=== PATIENT | male | born 1965 | race Caucasian/White ===

== ENCOUNTER 2017-05-07 18:53 | Emergency (ER) | payer MEDICARE, OTHER ==
[2017-05-07] MEDS ORDERED: KETOROLAC 30 MG/ML 1 ML VIAL IVP STA ×2 (19:01→20:22)
--- NOTE | 2017-05-07 19:05 | ED ---
Chest Pain HPI - General Chief Complaint: Chest Pain Stated Complaint: Chest pain Time Seen by Provider: 05/07/17 18:53 Source: patient, EMS, RN notes reviewed Mode of arrival: EMS Limitations: no limitations - History of Present Illness Initial Comments: This is a 51-year-old male who was currently in rehab for alcoholism who is been there 6 days ago one half hours ago started developing left lower anterior chest pain with some numbness to his left arm he also states later developing leg numbness he states the pain was sharp and pressure-like 4/10 severity he currently is 3/10 he was given 3 nitroglycerin and 324 mg of aspirin by paramedics. He has a cough fevers chills sweats he has some nausea and a headache now. He has no known heart disease. He denies any abdominal pain. Patient does say he has felt fatigued all day he did just finish Ativan yesterday for his withdrawals. MD Complaint: chest pain - Related Data Home Medications Medication Instructions Recorded Confirmed Lisinopril [Prinivil] 10 mg PO DAILY 04/16/14 05/07/17 Multivitamins, Thera [Multivitamin 1 tab PO DAILY 04/16/14 05/07/17 (formulary)] Ondansetron HCl [Zofran] 8 mg PO Q6H PRN 04/16/14 05/07/17 Thiamine [Vitamin B-1] 100 mg PO DAILY 04/16/14 05/07/17 Acetaminophen [Tylenol 8 Hour] 650 mg PO Q4H PRN MDD 6 TABLETS 05/07/17 05/07/17 Calcium Carb/Magnesium Hydrox 2 tab PO TID PRN 05/07/17 05/07/17 [Rolaids Chewable Tablet] Ibuprofen [Motrin] 600 mg PO Q6HR PRN 05/07/17 05/07/17 LORazepam [Ativan] 1 - 2 mg PO Q4H PRN 05/07/17 05/07/17 Sertraline [Zoloft] 100 mg PO DAILY@0600 05/07/17 05/07/17 Trimethobenzamide [Tigan] 300 mg PO Q6H PRN 05/07/17 05/07/17 busPIRone HCl [Buspar] 10 mg PO TID PRN 05/07/17 05/07/17 lamoTRIgine [LaMICtal] 25 mg PO BID@0600,1730 05/07/17 05/07/17 traZODone HCL 50 - 150 mg PO HS 05/07/17 05/07/17 Previous Rx's Medication Instructions Recorded Ibuprofen 800 mg PO Q6HR PRN #20 tablet 05/07/17 Allergies Allergy/AdvReac Type Severity Reaction Status Date / Time clonidine [From Catapres] AdvReac Vomiting Verified 05/07/17 19:04 Review of Systems ROS Statement: Those systems with pertinent positive or pertinent negative responses have been documented in the HPI. ROS Other: All systems not noted in ROS Statement are negative. EKG Findings - EKG Results: EKG: interpreted by ERMD, sinus rhythm (Normal sinus rhythm rate of 66 ID interval 134 QRS duration 84 QT since QTC 376/394 this is a normal-appearing EKG no changes seen from that submitted by EMS.) Past Medical History Past Medical History: Hypertension Additional Past Medical History / Comment(s): degenerative disc in back, diverticulosis History of Any Multi-Drug Resistant Organisms: C-DIFF Date of last positivie culture/infection: 2008 MDRO Source:: stool Additional Past Surgical History / Comment(s): 10 inches of colon removed from diverticulosis. Past Anesthesia/Blood Transfusion Reactions: No Reported Reaction Past Psychological History: Anxiety, Bipolar, Depression Smoking Status: Current every day smoker Past Alcohol Use History: Abuse Past Drug Use History: None Reported - Past Family History Mother Family Medical History: Congestive Heart Failure (CHF) General Exam - General Exam Comments Initial Comments: This is a well-developed well-nourished awake alert oriented times 3 male Limitations: no limitations General appearance: alert, in no apparent distress Head exam: Present: atraumatic, normocephalic, normal inspection Eye exam: Present: normal appearance, PERRL, EOMI. Absent: scleral icterus, conjunctival injection, periorbital swelling ENT exam: Present: normal exam, mucous membranes moist Neck exam: Present: normal inspection. Absent: tenderness, meningismus, lymphadenopathy Respiratory exam: Present: normal lung sounds bilaterally, chest wall tenderness (Reproducible tenderness palpation along the left costochondral margin step-off or crepitation). Absent: respiratory distress, wheezes, rales, rhonchi, stridor Cardiovascular Exam: Present: regular rate, normal rhythm, normal heart sounds. Absent: systolic murmur, diastolic murmur, rubs, gallop, clicks GI/Abdominal exam: Present: soft, normal bowel sounds. Absent: distended, tenderness, guarding, rebound, rigid Extremities exam: Present: normal inspection, full ROM, normal capillary refill. Absent: tenderness, pedal edema, joint swelling, calf tenderness Back exam: Present: normal inspection Neurological exam: Present: alert, oriented X3, CN II-XII intact Psychiatric exam: Present: normal affect, normal mood Skin exam: Present: warm, dry, intact, normal color. 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 He will be discharged with instructions for nonsteroidal anti-inflammatories Disposition Clinical Impression: Costalchondritis, Chest wall syndrome Disposition: HOME SELF-CARE Condition: Good Instructions: Costochondritis (ED) Prescriptions: Ibuprofen 800 mg PO Q6HR PRN #20 tablet PRN Reason: Pain Referrals: Nando Minor MD [Primary Care Provider] - 1-2 days
--- NOTE | 2017-05-07 19:21 | XR ---
EXAMINATION TYPE: XR chest 2V DATE OF EXAM: 05/07/2017 COMPARISON: NONE HISTORY: Chest pain TECHNIQUE: Frontal and lateral views of the chest are obtained. FINDINGS: There is no focal air space opacity, pleural effusion, or pneumothorax seen. The cardiac silhouette size is within normal limits. The osseous structures are intact. IMPRESSION: No acute cardiopulmonary process.
[2017-05-07 19:25] LABS: Basophils % (A) 1 %; Eosinophils # (A) 0.2 k/uL (0-0.7); Eosinophils % (A) 3 %; HCT 41.1 % (39.0-53.0); HGB 13.5 gm/dL (13.0-17.5); Lymphocytes # (A) 2.5 k/uL (1.0-4.8); Lymphocytes % (A) 33 %; MCH 30.2 pg (25.0-35.0); MCHC 32.8 g/dL (31.0-37.0); MCV 92.1 fL (80.0-100.0); Mean Platelet Volume 7.2; Monocytes # (A) 0.7 k/uL (0-1.0); Monocytes % (A) 9 %; Neutrophils % (A) 53 %; Platelet Count 307 k/uL (150-450); RBC 4.46 m/uL (4.30-5.90); RDW 13.3 % (11.5-15.5); WBC 7.7 k/uL (3.8-10.6)
[2017-05-07 19:34] LABS: ALT 24 U/L (21-72); AST 27 U/L (17-59); Albumin 3.9 g/dL (3.5-5.0); Alkaline Phosphatase 43 U/L (38-126); Amylase 57 U/L (30-110); Anion Gap 7 mmol/L; Blood Urea Nitrogen 17 mg/dL (9-20); Calcium 9.7 mg/dL (8.4-10.2); Carbon Dioxide 27 mmol/L (22-30); Chloride 106 mmol/L (98-107); Glucose 93 mg/dL (74-99); Lipase 143 U/L (23-300); Potassium 5.2 mmol/L (3.5-5.1); Sodium 140 mmol/L (137-145); Total Bilirubin 0.5 mg/dL (0.2-1.3); Total Protein 6.7 g/dL (6.3-8.2)
[2017-05-07 19:36] LABS: D-Dimer 0.2 mg/L FEU (<0.60)
[2017-05-07 19:40] LABS: Partial Thromboplastin Time 22.7 sec (22.0-30.0); Prothrombin Time 10.1 sec (9.0-12.0)
[2017-05-07 20:00] LABS: Creatine Kinase 82 U/L (55-170)
[2017-05-07 20:13] LABS: Creatine Kinase MB 0.2 ng/mL (0.0-2.4); Troponin I <0.012 ng/mL (0.000-0.034)
[2017-05-07] MEDS ORDERED: LORazepam 2 MG/ML INJ IV STA (20:22)
[2017-05-07 21:42] VITALS: BP 150/82; PULSE 60; RESP 18; TEMP 98
== END 2017-05-07 22:00 | disposition home or self-care (01) ==
LOC: EC 18:53
DX: M94.0 Chondrocostal junction syndrome [Tietze] (principal); R07.1 Chest pain on breathing; I10 Essential (primary) hypertension; F31.9 Bipolar disorder, unspecified; F41.9 Anxiety disorder, unspecified; F17.200 Nicotine dependence, unspecified, uncomplicated; Z79.899 Other long term (current) drug therapy; Z88.8 Allergy status to other drugs, medicaments and biological substances
CPT/HCPCS: 36415; 93005; 85379; 83880; 80053; 82150; 82550; 82553; 83690; 83735; 84484; 85025; 85610; 85730; 71046; 99285; 96374; 96375; 96376; J2060; J1885

== ENCOUNTER 2017-07-27 01:58 | Emergency (ER) | payer MEDICARE, OTHER ==
[2017-07-27] MEDS ORDERED: PENICILLIN G BENZATHINE 1,200,000 UNIT/2 ML SYRINGE IM ONE (03:27)
[2017-07-27] MEDS ORDERED: HYDROcodone/APAP 5-325MG 1 EACH TAB PO STA (03:28)
[2017-07-27] MEDS ORDERED: KETOROLAC 30 MG/ML 1 ML VIAL IM STA (03:28)
--- NOTE | 2017-07-27 03:30 | ED ---
ENT HPI - General Chief complaint: Dental/Oral Stated complaint: Dental pain Time Seen by Provider: 07/27/17 02:37 Source: patient Mode of arrival: ambulatory Limitations: no limitations - History of Present Illness Initial comments: 51-year-old male patient presented to the emergency department today for evaluation of dental abscess. Patient states he is having frontal dental pain and right frontal facial swelling. Patient states that he has been having pain for the last 4 days. States that he has very poor dentition and multiple broken teeth with dental caries. Patient states he does have a dentist appointment next week but he can't take the pain any longer. Patient states the pain is severe he is rating it a 10 out of 10 on a pain scale. He denies any fevers or chills. States that he has had some nausea. States he's been taking Tylenol Motrin for pain control but denies any relief. Denies any trismus or difficulty swallowing. Denies any rash. Patient denies any recent shortness breath, chest pain, abdominal pain, vomiting, diarrhea, constipation, back pain, numbness, tingling, dizziness, weakness, hematuria, dysuria, urinary urgency, urinary frequency, headache, visual changes, or any other complaints. - Related Data Home Medications Medication Instructions Recorded Confirmed Lisinopril [Prinivil] 10 mg PO DAILY 04/16/14 05/07/17 Multivitamins, Thera [Multivitamin 1 tab PO DAILY 04/16/14 05/07/17 (formulary)] Ondansetron HCl [Zofran] 8 mg PO Q6H PRN 04/16/14 05/07/17 Thiamine [Vitamin B-1] 100 mg PO DAILY 04/16/14 05/07/17 Acetaminophen [Tylenol 8 Hour] 650 mg PO Q4H PRN MDD 6 TABLETS 05/07/17 05/07/17 Calcium Carb/Magnesium Hydrox 2 tab PO TID PRN 05/07/17 05/07/17 [Rolaids Chewable Tablet] Ibuprofen [Motrin] 600 mg PO Q6HR PRN 05/07/17 05/07/17 LORazepam [Ativan] 1 - 2 mg PO Q4H PRN 05/07/17 05/07/17 Sertraline [Zoloft] 100 mg PO DAILY@0600 05/07/17 05/07/17 Trimethobenzamide [Tigan] 300 mg PO Q6H PRN 05/07/17 05/07/17 busPIRone HCl [Buspar] 10 mg PO TID PRN 05/07/17 05/07/17 lamoTRIgine [LaMICtal] 25 mg PO BID@0600,1730 05/07/17 05/07/17 traZODone HCL 50 - 150 mg PO HS 05/07/17 05/07/17 Previous Rx's Medication Instructions Recorded Ibuprofen 800 mg PO Q6HR PRN #20 tablet 05/07/17 Hydrocodone/Acetaminophen [[place] 1 tab PO Q6HR PRN #12 tab 07/27/17 5-325] Ibuprofen [Motrin] 600 mg PO Q8HR PRN #30 tab 07/27/17 Penicillin V Potassium [Pen Vee K] 500 mg PO Q6H #40 tablet 07/27/17 Allergies Allergy/AdvReac Type Severity Reaction Status Date / Time clonidine [From Catapres] AdvReac Vomiting Verified 07/27/17 02:06 Review of Systems ROS Statement: Those systems with pertinent positive or pertinent negative responses have been documented in the HPI. ROS Other: All systems not noted in ROS Statement are negative. Past Medical History Past Medical History: Hypertension Additional Past Medical History / Comment(s): degenerative disc in back, diverticulosis History of Any Multi-Drug Resistant Organisms: C-DIFF Date of last positivie culture/infection: 2008 MDRO Source:: stool Additional Past Surgical History / Comment(s): 10 inches of colon removed from diverticulosis. Past Anesthesia/Blood Transfusion Reactions: No Reported Reaction Past Psychological History: Anxiety, Bipolar, Depression Smoking Status: Current every day smoker Past Alcohol Use History: Abuse Past Drug Use History: None Reported - Past Family History Mother Family Medical History: Congestive Heart Failure (CHF) General Exam Limitations: no limitations General appearance: alert, in no apparent distress, other (This is a well- developed, well-nourished adult male patient in no acute distress. Vital signs upon presentation are temperature 98.1F, pulse 73, respirations 20, blood pressure 173/115, pulse ox 99% on room air.) Eye exam: Present: normal appearance, PERRL, EOMI. Absent: scleral icterus, conjunctival injection, periorbital swelling ENT exam: Present: normal oropharynx, mucous membranes moist, other (Patient has very poor dentition, upper teeth are all broken down to the gumline, there is gingival erythema and hyperplasia. Patient has no evidence of drainable abscess. He does have facial swelling over the right maxillary region. This does not extend to the eye. There is no erythema.). Absent: normal exam Neck exam: Present: normal inspection. Absent: tenderness, meningismus, lymphadenopathy Respiratory exam: Present: normal lung sounds bilaterally. Absent: respiratory distress, wheezes, rales, rhonchi, stridor Cardiovascular Exam: Present: regular rate, normal rhythm, normal heart sounds. Absent: systolic murmur, diastolic murmur, rubs, gallop, clicks Neurological exam: Present: alert, oriented X3, CN II-XII intact Psychiatric exam: Present: normal affect, normal mood Skin exam: Present: warm, dry, intact, normal color. 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 Physical examination did reveal right facial swelling and very poor dentition. No evidence of drainable abscess. We will give patient an injection of penicillin. He'll be discharged home with a prescription for Pen-Vee K. He does have an appointment with his dentist next week he is urged to keep this. Return parameters discussed in detail. He verbalizes understanding and agrees with this plan. Disposition Clinical Impression: Dental abscess Disposition: HOME SELF-CARE Condition: Good Instructions: Dental Abscess (ED) Additional Instructions: Apply cool compresses to the outside of the face. Take medications as directed. Complete antibiotic prescription in full. Follow-up with dentistry as soon as possible. Return here immediately if you develop any fevers, increased swelling, or any other concerning symptoms. Prescriptions: Hydrocodone/Acetaminophen [[place] 5-325] 1 tab PO Q6HR PRN #12 tab PRN Reason: Pain Ibuprofen [Motrin] 600 mg PO Q8HR PRN #30 tab PRN Reason: Pain Penicillin V Potassium [Pen Vee K] 500 mg PO Q6H #40 tablet Is patient prescribed a controlled substance at d/c from ED?: Yes When asked, does pt state using other controlled substances?: No If prescribed controlled substance>3 days was MAPS reviewed?: Prescribed <3 Days If opioid is for acute pain is fill amount 7 days or less?: No If Rx opioid, was Start Talking consent form obtained?: Yes Referrals: Sheridan Virgen MD [Primary Care Provider] - 1-2 days Time of Disposition: 03:30
[2017-07-27 03:50] VITALS: BP 159/69; PULSE 78; RESP 18; TEMP 97
== END 2017-07-27 03:49 | disposition home or self-care (01) ==
LOC: EC 01:58
DX: K04.7 Periapical abscess without sinus (principal); K06.1 Gingival enlargement; S02.5XXA Fracture of tooth (traumatic), initial encounter for closed fracture; K02.9 Dental caries, unspecified; I10 Essential (primary) hypertension; F31.9 Bipolar disorder, unspecified; F41.9 Anxiety disorder, unspecified; F17.200 Nicotine dependence, unspecified, uncomplicated; Z88.8 Allergy status to other drugs, medicaments and biological substances; Z79.899 Other long term (current) drug therapy; X58.XXXA Exposure to other specified factors, initial encounter
CPT/HCPCS: 99282 ×3; 96372 ×3; 64450; J0561; J2001; J1885; J2270

== ENCOUNTER 2017-07-27 08:58 | Emergency (ER) | payer MEDICARE, OTHER ==
[2017-07-27 09:03] VITALS: BP 154/109; PULSE 99; RESP 20; TEMP 98.1
[2017-07-27] MEDS ORDERED: BUPIVACAINE (PF) 0.5% 30 ML VIAL SQ STA (09:09)
[2017-07-27] MEDS ORDERED: LIDOCAINE 1% INJ 10MG/ML (20 ML MDV) SQ STA (09:09)
--- NOTE | 2017-07-27 09:27 | ED ---
General Adult HPI - General Chief complaint: Dental/Oral Stated complaint: Dental Pain Time Seen by Provider: 07/27/17 09:04 Source: patient, RN notes reviewed Mode of arrival: ambulatory Limitations: no limitations - History of Present Illness Initial comments: 51-year-old male presenting to the emergency room today with chief complaint of increased dental pain. Patient does admit that he started having pain a few days ago. He does admit to poor dental hygiene. Does admit to seeing a dentist has an appointment on Saturday. Patient states he was here early this morning at 2 AM. He states he was given a shot of Toradol, a [place], and shot of penicillin and discharged home. He states he would home was able to fall asleep woke up with the same pain. Patient denies any drainage discharge. Patient denies any other complaints or symptoms at this time. Patient denies any recent fever, chills, shortness of breath, chest pain, back pain, abdominal pain, nausea or vomiting, headaches or visual changes, or any other complaints. - Related Data Home Medications Medication Instructions Recorded Confirmed Lisinopril [Prinivil] 10 mg PO DAILY 04/16/14 05/07/17 Multivitamins, Thera [Multivitamin 1 tab PO DAILY 04/16/14 05/07/17 (formulary)] Ondansetron HCl [Zofran] 8 mg PO Q6H PRN 04/16/14 05/07/17 Thiamine [Vitamin B-1] 100 mg PO DAILY 04/16/14 05/07/17 Acetaminophen [Tylenol 8 Hour] 650 mg PO Q4H PRN MDD 6 TABLETS 05/07/17 05/07/17 Calcium Carb/Magnesium Hydrox 2 tab PO TID PRN 05/07/17 05/07/17 [Rolaids Chewable Tablet] Ibuprofen [Motrin] 600 mg PO Q6HR PRN 05/07/17 05/07/17 LORazepam [Ativan] 1 - 2 mg PO Q4H PRN 05/07/17 05/07/17 Sertraline [Zoloft] 100 mg PO DAILY@0600 05/07/17 05/07/17 Trimethobenzamide [Tigan] 300 mg PO Q6H PRN 05/07/17 05/07/17 busPIRone HCl [Buspar] 10 mg PO TID PRN 05/07/17 05/07/17 lamoTRIgine [LaMICtal] 25 mg PO BID@0600,1730 05/07/17 05/07/17 traZODone HCL 50 - 150 mg PO HS 05/07/17 05/07/17 Previous Rx's Medication Instructions Recorded Ibuprofen 800 mg PO Q6HR PRN #20 tablet 05/07/17 Hydrocodone/Acetaminophen [[place] 1 tab PO Q6HR PRN #12 tab 07/27/17 5-325] Ibuprofen [Motrin] 600 mg PO Q8HR PRN #30 tab 07/27/17 Penicillin V Potassium [Pen Vee K] 500 mg PO Q6H #40 tablet 07/27/17 Allergies Allergy/AdvReac Type Severity Reaction Status Date / Time clonidine [From Catapres] AdvReac Vomiting Verified 07/27/17 09:03 Review of Systems ROS Statement: Those systems with pertinent positive or pertinent negative responses have been documented in the HPI. ROS Other: All systems not noted in ROS Statement are negative. Past Medical History Past Medical History: Hypertension Additional Past Medical History / Comment(s): degenerative disc in back, diverticulosis History of Any Multi-Drug Resistant Organisms: C-DIFF Date of last positivie culture/infection: 2008 MDRO Source:: stool Additional Past Surgical History / Comment(s): 10 inches of colon removed from diverticulosis. Past Anesthesia/Blood Transfusion Reactions: No Reported Reaction Past Psychological History: Anxiety, Bipolar, Depression Smoking Status: Current every day smoker Past Alcohol Use History: Abuse Past Drug Use History: None Reported - Past Family History Mother Family Medical History: Congestive Heart Failure (CHF) General Exam - General Exam Comments Initial Comments: General: The patient is awake and alert, in no distress, and does not appear acutely ill. Eye: Pupils are equal, round and reactive to light, extra-ocular movements are intact. No nystagmus. There is normal conjunctiva bilaterally. No signs of icterus. Ears, nose, mouth and throat: There are moist mucous membranes and no oral lesions. Patient does have poor dental hygiene with multiple fractured teeth down to the gumline. There is some redness swelling of the gumline of 8 and 9. Locally tender on palpation in this area. Neck: The neck is supple Musculoskeletal: Normal ROM, no tenderness. Strength 5/5. Sensation intact. Pulses equal bilaterally 2+. Neurological: A&O x 3. CN II-XII intact, There are no obvious motor or sensory deficits. Coordination appears grossly intact. Speech is normal. Skin: Skin is warm and dry and no rashes or lesions are noted. Psychiatric: Cooperative, appropriate mood & affect, normal judgment. Limitations: no limitations Course Vital Signs 07/27/17 09:01 Temperature 98.1 F Pulse Rate 99 Respiratory 20 Rate Blood Pressure 154/109 O2 Sat by Pulse 97 Oximetry Medical Decision Making - Medical Decision Making Options were discussed with patient about a dental block. Was also discussed about giving him a [place] for the pain. Patient was provided a prescription last night and also antibiotics. He was given a shot of antibiotics last night. Advised patient that it may take 2448 hrs. for antibiotics to begin to work. He states he needs something for the pain and would like to try dental block. A dental block was performed with mixture 50-50 of lidocaine and bupivacaine. 30-gauge needle was used to anesthetize the area. Immediately afterwards patient states he did not want to try this again and he had no relief. Immediately he stated he wanted to talk to who was in charge. Patient will be discharged from the and advised continue taking antibiotic and pain medication as previously prescribed. Disposition Clinical Impression: Dental abscess Disposition: HOME SELF-CARE Instructions: Dental Abscess (ED) Additional Instructions: Please continue to take previously prescribed antibiotics and pain medication. Please follow-up dentist as discussed. Please return to emergency room for any other concerns Is patient prescribed a controlled substance at d/c from ED?: No Referrals: Sheridan Virgen MD [Primary Care Provider] - 1-2 days Time of Disposition: 09:26
[2017-07-27] MEDS ORDERED: MORPHINE SULFATE 2 MG/ML SYRINGE IM STA (09:30)
== END 2017-07-27 09:43 | disposition home or self-care (01) ==
LOC: EC 08:58
DX: K04.7 Periapical abscess without sinus (principal); I10 Essential (primary) hypertension; F41.9 Anxiety disorder, unspecified; F31.9 Bipolar disorder, unspecified; F17.200 Nicotine dependence, unspecified, uncomplicated; Z79.899 Other long term (current) drug therapy; Z88.8 Allergy status to other drugs, medicaments and biological substances
CPT/HCPCS: 99282; 64400; J2001; J2270; 64450

== ENCOUNTER 2017-09-16 09:45 | Day surgery (SDC) | payer MEDICARE, OTHER ==
[2017-09-11 15:44] VITALS: BMI 30.7
[~2017-09-16 09:45] MED LIST: LACTATED RINGERS 1,000 ML IV SCH; LIDOCAINE 1% 20 ML VIAL (10MG/ML) FOR IV START INTRADERMA PRN
[2017-09-16 10:11] VITALS: RESP 18; TEMP 98.8
[2017-09-16] MEDS ORDERED: LACTATED RINGERS 1,000 ML IV ONE (10:14)
[2017-09-16] MEDS ORDERED: PROPOFOL 10 MG/ML 20 ML VIAL IV ONE (10:55)
--- NOTE | 2017-09-16 11:17 | P.GSHP ---
History of Present Illness H&P Date: 09/16/17 Chief Complaint: Screening colonoscopy, history of diverticulosis Is a 51-year-old male been sick for screening colonoscopy. He's had issues with diverticulitis the past. He has complaints of a small perirectal abscess. Past Medical History Past Medical History: Hypertension Additional Past Medical History / Comment(s): degenerative disc in back, diverticulosis. POS BLOOD IN STOOL. History of Any Multi-Drug Resistant Organisms: C-DIFF Date of last positivie culture/infection: 2008 MDRO Source:: stool Past Surgical History: Bowel Resection Additional Past Surgical History / Comment(s): COLONOSCOPY; 10 inches of colon removed from diverticulosis. Past Anesthesia/Blood Transfusion Reactions: No Reported Reaction Smoking Status: Current every day smoker - Past Family History Mother Family Medical History: Congestive Heart Failure (CHF) Medications and Allergies Home Medications Medication Instructions Recorded Confirmed Type Multivitamins, Thera [Multivitamin 1 tab PO DAILY 04/16/14 09/11/17 History (formulary)] Sertraline [Zoloft] 100 mg PO DAILY 05/07/17 09/11/17 History busPIRone HCl [Buspar] 10 mg PO TID 05/07/17 09/11/17 History lamoTRIgine [LaMICtal] 25 mg PO BID 05/07/17 09/11/17 History Cholecalciferol (Vitamin D3) 1,000 unit PO DAILY 07/30/17 09/11/17 History [Vitamin D3] L.acidoph,Paracasei, B.lactis 1 cap PO DAILY 07/30/17 09/11/17 History [Probiotic] hydrOXYzine PAMOATE [Vistaril] 50 mg PO HS 09/11/17 09/11/17 History Allergies Allergy/AdvReac Type Severity Reaction Status Date / Time clonidine [From Catapres] AdvReac Vomiting Verified 09/11/17 15:22 Surgical - Exam Vital Signs Temp Pulse Resp BP Pulse Ox 98.8 F 77 18 138/92 94 L 09/16/17 10:10 09/16/17 10:10 09/16/17 10:10 09/16/17 10:10 09/16/17 10:10 - General well developed, no distress - Eyes PERRL - ENT normal pinna - Neck no masses - Respiratory normal expansion - Cardiovascular Rhythm: regular - Abdomen Abdomen: soft, non tender Assessment and Plan Assessment: We'll perform screening colonoscopy.
--- NOTE | 2017-09-16 11:31 | P.OP ---
Date of Procedure: 09/16/17 Preoperative Diagnosis: Screening colonoscopy Postoperative Diagnosis: Diverticulosis Procedure(s) Performed: Colonoscopy Anesthesia: MAC Surgeon: Maximus Amezcua Pathology: none sent Condition: stable Disposition: PACU Description of Procedure: The patient's placed on the endoscopy table in the lateral position. He received IV sedation. The digital rectal exam is performed which revealed no abnormalities. The prostate was symmetric without nodules. The flexible colonoscope was then placed the patient's anus and passed throughout the entire colon. The ileocecal valve sutures. The cecum, ascending and transverse colon appeared normal. The descending; there is moderate diverticular changes. Scope was then brought back the rectum and this appeared normal. There isany abscess or fissures. Scope was withdrawn for patient.
[2017-09-16 11:50] VITALS: BP 132/88; PULSE 67
== END 2017-09-16 12:07 | disposition home or self-care (01) ==
LOC: ORWHC2ENDO 09:45
PROVIDERS: ATTEND Surgery
DX: K57.30 Diverticulosis of large intestine without perforation or abscess without bleeding (principal); I10 Essential (primary) hypertension; F17.200 Nicotine dependence, unspecified, uncomplicated; F39 Unspecified mood [affective] disorder; Z79.899 Other long term (current) drug therapy; Z88.8 Allergy status to other drugs, medicaments and biological substances
CPT/HCPCS: 45378; J2704

== ENCOUNTER 2017-09-27 13:52 | Emergency (ER) | payer MEDICARE, OTHER ==
[2017-09-27] MEDS ORDERED: KETOROLAC 30 MG/ML 1 ML VIAL IVP STA (14:40)
[2017-09-27] MEDS ORDERED: SODIUM CHLORIDE 0.9% 1,000 ML IV ONE (14:40)
[2017-09-27] MEDS ORDERED: ONDANSETRON 4 MG/2 ML VIAL IVP STA (14:40)
[2017-09-27 15:02] LABS: Appearance,Urine Clear (Clear); Bilirubin,Urine Negative (Negative); Blood,Urine Negative (Negative); Color,Urine Light Yellow; Glucose,Urine (UA) Negative (Negative); Ketones,Urine Negative (Negative); Leukocyte Esterase,Urine Negative (Negative); Nitrite,Urine Negative (Negative); Protein,Urine Negative (Negative); Urobilinogen,Urine <2.0 mg/dL (<2.0)
--- NOTE | 2017-09-27 15:23 | ED ---
Abdominal Pain HPI - General Chief Complaint: Abdominal Pain Stated Complaint: abd pain Time Seen by Provider: 09/27/17 14:16 Source: patient Mode of arrival: ambulatory Limitations: no limitations - History of Present Illness Initial Comments: Patient is a 51-year-old male with a history of diverticulosis who presents with a chief complaint of left lower quadrant pain and diarrhea. This has been going on for about a day. Patient cannot identify inciting incident, he denies any sick contacts. Patient states this pain feels crampy in nature. There are no aggravating or alleviating factors. Timing is been constant. He denies fever, chills, nausea or vomiting. - Related Data Home Medications Medication Instructions Recorded Confirmed Multivitamins, Thera [Multivitamin 1 tab PO DAILY 04/16/14 09/27/17 (formulary)] Sertraline [Zoloft] 100 mg PO DAILY 05/07/17 09/27/17 busPIRone HCl [Buspar] 10 mg PO TID 05/07/17 09/27/17 lamoTRIgine [LaMICtal] 25 mg PO BID 05/07/17 09/27/17 Cholecalciferol (Vitamin D3) 1,000 unit PO DAILY 07/30/17 09/27/17 [Vitamin D3] L.acidoph,Paracasei, B.lactis 1 cap PO DAILY 07/30/17 09/27/17 [Probiotic] hydrOXYzine PAMOATE [Vistaril] 50 mg PO HS 09/11/17 09/27/17 Previous Rx's Medication Instructions Recorded Dicyclomine [Bentyl] 20 mg PO QID #20 tablet 09/27/17 Allergies Allergy/AdvReac Type Severity Reaction Status Date / Time clonidine [From Catapres] AdvReac Vomiting Verified 09/27/17 14:07 Review of Systems ROS Statement: Those systems with pertinent positive or pertinent negative responses have been documented in the HPI. ROS Other: All systems not noted in ROS Statement are negative. Gastrointestinal: Reports: abdominal pain Past Medical History Past Medical History: Hypertension Additional Past Medical History / Comment(s): degenerative disc in back, diverticulosis. POS BLOOD IN STOOL. History of Any Multi-Drug Resistant Organisms: C-DIFF Date of last positivie culture/infection: 2008 MDRO Source:: stool Past Surgical History: Bowel Resection Additional Past Surgical History / Comment(s): COLONOSCOPY; 10 inches of colon removed from diverticulosis. Past Anesthesia/Blood Transfusion Reactions: No Reported Reaction Past Psychological History: Anxiety, Bipolar, Depression Smoking Status: Current every day smoker Past Alcohol Use History: None Reported Past Drug Use History: None Reported - Past Family History Mother Family Medical History: Congestive Heart Failure (CHF) General Exam Limitations: no limitations General appearance: alert, in no apparent distress Head exam: Present: atraumatic, normocephalic Eye exam: Present: normal appearance ENT exam: Present: normal exam Neck exam: Present: normal inspection Respiratory exam: Present: normal lung sounds bilaterally, respiratory distress Cardiovascular Exam: Present: regular rate, normal rhythm GI/Abdominal exam: Present: soft, tenderness (Patient has tenderness to palpation in the left lower quadrant.). Absent: distended Rectal exam: Present: deferred Extremities exam: Present: normal inspection Back exam: Present: normal inspection, full ROM Neurological exam: Present: alert, oriented X3 Psychiatric exam: Present: normal affect, normal mood Skin exam: Present: warm, dry, intact Course Vital Signs 09/27/17 14:06 Temperature 98.8 F Pulse Rate 81 Respiratory 18 Rate Blood Pressure 145/95 O2 Sat by Pulse 97 Oximetry Medical Decision Making - Medical Decision Making Patient presents with a chief complaint of left lower quadrant pain and diarrhea. On initial evaluation, vitals are stable, patient is in no acute distress. Exam concerning for possible diverticulitis. Patient had a colonoscopy recently. He states that they saw that he had diverticulosis without active infectious process. Patient was evaluated with basic labs and a computed tomography scan of the abdomen and pelvis. Labs are unremarkable. White blood cells of 10,000. Computed tomography scan of the abdomen and pelvis shows diverticulosis without evidence of diverticulitis. Computed tomography scan is otherwise unremarkable. Patient given Toradol and fluids for pain. Reevaluation, patient still having abdominal pain. He states he took the bus here today. Patient will be given a Harvey in the emergency department and discharged with a prescription for Bentyl. Patient was instructed to stay hydrated, and follow up with primary care and GI in 1-2 days. Patient was instructed to return to the emergency department if his symptoms worsen or change. - Lab Data Result diagrams: 09/27/17 15:00 09/27/17 15:00 Lab Results 09/27/17 09/27/17 09/27/17 Range/Units 14:45 15:00 15:00 WBC 10.0 (3.8-10.6) k/uL RBC 5.28 (4.30-5.90) m/uL Hgb 14.8 (13.0-17.5) gm/dL Hct 45.4 (39.0-53.0) % MCV 86.0 (80.0-100.0) fL MCH 28.1 (25.0-35.0) pg MCHC 32.7 (31.0-37.0) g/dL RDW 13.3 (11.5-15.5) % Plt Count 315 (150-450) k/uL Neutrophils % 64 % Lymphocytes % 27 % Monocytes % 5 % Eosinophils % 3 % Basophils % 1 % Neutrophils # 6.4 (1.3-7.7) k/uL Lymphocytes # 2.7 (1.0-4.8) k/uL Monocytes # 0.5 (0-1.0) k/uL Eosinophils # 0.3 (0-0.7) k/uL Basophils # 0.1 (0-0.2) k/uL Sodium 140 (137-145) mmol/L Potassium 4.1 (3.5-5.1) mmol/L Chloride 109 H (98-107) mmol/L Carbon Dioxide 23 (22-30) mmol/L Anion Gap 8 mmol/L BUN 14 (9-20) mg/dL Creatinine 0.90 (0.66-1.25) mg/dL Est GFR (CKD-EPI)AfAm >90 (>60 ml/min/1.73 sqM) Est GFR (CKD-EPI)NonAf >90 (>60 ml/min/1.73 sqM) Glucose 90 (74-99) mg/dL Calcium 9.6 (8.4-10.2) mg/dL Total Bilirubin 0.4 (0.2-1.3) mg/dL AST 18 (17-59) U/L ALT 22 (21-72) U/L Alkaline Phosphatase 55 (38-126) U/L Total Protein 6.6 (6.3-8.2) g/dL Albumin 4.1 (3.5-5.0) g/dL Lipase 73 (23-300) U/L Urine Color Light Yellow Urine Appearance Clear (Clear) Urine pH 6.0 (5.0-8.0) Ur Specific [place] 1.010 (1.001-1.035) Urine Protein Negative (Negative) Urine Glucose (UA) Negative (Negative) Urine Ketones Negative (Negative) Urine Blood Negative (Negative) Urine Nitrite Negative (Negative) Urine Bilirubin Negative (Negative) Urine Urobilinogen <2.0 (<2.0) mg/dL Ur Leukocyte Esterase Negative (Negative) Disposition Clinical Impression: Abdominal pain, Diarrhea Disposition: HOME SELF-CARE Condition: Good Instructions: Abdominal Pain (ED) Is patient prescribed a controlled substance at d/c from ED?: No Referrals: Sheridan Virgen MD [Primary Care Provider] - 1-2 days
[2017-09-27 15:27] LABS: Basophils # (A) 0.1 k/uL (0-0.2); Basophils % (A) 1 %; Eosinophils # (A) 0.3 k/uL (0-0.7); Eosinophils % (A) 3 %; HCT 45.4 % (39.0-53.0); HGB 14.8 gm/dL (13.0-17.5); Lymphocytes # (A) 2.7 k/uL (1.0-4.8); Lymphocytes % (A) 27 %; MCH 28.1 pg (25.0-35.0); MCHC 32.7 g/dL (31.0-37.0); Mean Platelet Volume 6.1; Monocytes # (A) 0.5 k/uL (0-1.0); Monocytes % (A) 5 %; Neutrophils # (A) 6.4 k/uL (1.3-7.7); Neutrophils % (A) 64 %; Platelet Count 315 k/uL (150-450); RBC 5.28 m/uL (4.30-5.90); RDW 13.3 % (11.5-15.5)
[2017-09-27 15:35] LABS: ALT 22 U/L (21-72); AST 18 U/L (17-59); Albumin 4.1 g/dL (3.5-5.0); Alkaline Phosphatase 55 U/L (38-126); Anion Gap 8 mmol/L; Blood Urea Nitrogen 14 mg/dL (9-20); Calcium 9.6 mg/dL (8.4-10.2); Carbon Dioxide 23 mmol/L (22-30); Chloride 109 mmol/L (98-107); Glucose 90 mg/dL (74-99); Lipase 73 U/L (23-300); Potassium 4.1 mmol/L (3.5-5.1); Sodium 140 mmol/L (137-145); Total Bilirubin 0.4 mg/dL (0.2-1.3); Total Protein 6.6 g/dL (6.3-8.2)
--- NOTE | 2017-09-27 16:09 | CT ---
EXAMINATION TYPE: CT abdomen pelvis w con DATE OF EXAM: 09/27/2017 COMPARISON: NONE HISTORY: 51-year-old male complains of LLQ pain. TECHNIQUE: Contiguous axial scanning of the abdomen and pelvis following administration of 100 ml Iso brianne 300 IV contrast. Delayed images through the kidneys and coronal/sagittal reconstructions perform ed. CT DLP: 1294 mGycm Automated exposure control for dose reduction was used. FINDINGS: Heart normal size without pericardial effusion. Mild dependent atelectasis posterior lung bases. No p leural effusion. Liver borderline enlarged measuring 17.6 cm. Subcentimeter hypodensity centrally in the liver too sma ll for accurate CT characterization, likely tiny cyst. No biliary ductal dilatation. Portal venous sy stem is patent. Gallbladder, adrenal glands, kidneys, spleen, and pancreas appear within normal limits. Small diverti culum of the second portion of the duodenum projecting to the pancreatic head region. No dilated small bowel, free fluid, or free air. Normal appendix. Mild overall stool burden. There is lower descending colonic diverticulosis as well as scattered sigmoid diverticulosis. No pericolonic inflammatory change seen. Small fatty umbilical hernia. Stable line along the mid sigmoid compatible with prior resection and re-anastomosis. No mesenteric or retroperitoneal lymphadenopathy. Circumaortic left renal vein incidentally noted. Mi ld atherosclerotic calcifications infrarenal abdominal aorta and iliac arteries. Mild circumferential bladder wall thickening. Central prostatic calcifications. Prostate gland measur es 3.4 cm wide. No abnormal fluid collection in the pelvis or pelvic lymphadenopathy. Bones: Degenerative disc disease L5-S1. L4-L5 laminectomy change. IMPRESSION: 1. LEFT-SIDED COLONIC DIVERTICULOSIS WITH PRIOR RESECTION AND RE-ANASTOMOSIS ALONG THE MID SIGMOID. N O EVIDENCE FOR ACUTE DIVERTICULITIS. 2. MILD CIRCUMFERENTIAL BLADDER WALL THICKENING . CORRELATE TO EXCLUDE CYSTITIS. 3. OTHERWISE, NO ACUTE INFLAMMATORY PROCESS IDENTIFIED IN THE ABDOMEN OR PELVIS TO EXPLAIN THE PATIEN T'S SYMPTOMS.
[2017-09-27] MEDS ORDERED: HYDROcodone/APAP 5-325MG 1 EACH TAB PO STA (16:12)
[2017-09-27 16:53] VITALS: BP 151/81; PULSE 57; RESP 20; TEMP 98.2
== END 2017-09-27 16:52 | disposition home or self-care (01) ==
LOC: EC 13:52
DX: K57.90 Diverticulosis of intestine, part unspecified, without perforation or abscess without bleeding (principal); F31.9 Bipolar disorder, unspecified; F41.9 Anxiety disorder, unspecified; F17.200 Nicotine dependence, unspecified, uncomplicated; Z79.899 Other long term (current) drug therapy; Z88.8 Allergy status to other drugs, medicaments and biological substances
CPT/HCPCS: 36415; 80053; 83690; 85025; 81003; 74177; 99284; 96374; 96375; 96361; J2405; J1885; Q9967

== ENCOUNTER 2017-10-01 17:29 | Emergency (ER) | payer MEDICARE, OTHER ==
[2017-10-01 17:54] VITALS: TEMP 97.9
[2017-10-01] MEDS ORDERED: IBUPROFEN 800 MG TAB PO STA (18:49)
[2017-10-01] MEDS ORDERED: CYCLOBENZAPRINE 5 MG TAB PO STA (18:53)
--- NOTE | 2017-10-01 19:26 | XR ---
EXAMINATION TYPE: XR lumbar spine 2 or 3V DATE OF EXAM: 10/01/2017 COMPARISON: NONE HISTORY: Low back pain TECHNIQUE: 3 views FINDINGS: Lumbar vertebra have normal alignment. There is narrowing of L5-S1 disc space. There is spu rring of the endplates. Abdominal aorta is atheromatous. Sacroiliac joints appear intact. IMPRESSION: Negative lumbar spine exam.
[2017-10-01] MEDS ORDERED: KETOROLAC 60 MG/2 ML VIAL IM STA (19:34)
--- NOTE | 2017-10-01 19:49 | ED ---
Back Pain HPI - General Chief Complaint: Back Pain/Injury Stated Complaint: Lower back pain Time Seen by Provider: 10/01/17 18:28 Source: patient Limitations: no limitations - History of Present Illness Initial Comments: 51-year-old male with chronic low back pain with reveals lumbar laminectomy who presents today for chief complaint of low back pain. Patient states that he was getting out of bed yesterday when he twisted and felt a pop returned. He noticed some radiation of the pain from his lumbar spine down to his legs bilaterally. Patient denies any recent trauma, or injury to the back, numbness , tingling, paresthesias or loss sensation of the lower extremities. Patient denies any loss of bowel bladder control or urinary retention. Patient states has not taken any medication for the low back pain. Patient presents emergency department today to find out what's going on. Patient denies any IV drug use, recent weight loss, urgency, previously, dysuria, hematuria, fever, chills, chest pain, shortness breath or any other symptoms. - Related Data Home Medications Medication Instructions Recorded Confirmed Sertraline [Zoloft] 100 mg PO DAILY 05/07/17 10/01/17 lamoTRIgine [LaMICtal] 25 mg PO BID 05/07/17 10/01/17 hydrOXYzine PAMOATE [Vistaril] 50 mg PO HS 09/11/17 10/01/17 Azithromycin [Zithromax Z-pack] See Taper PO DIRECTED 10/01/17 10/01/17 Previous Rx's Medication Instructions Recorded Cyclobenzaprine [Flexeril] 5 mg PO HS 4 Days #4 tab 10/01/17 Ibuprofen [Motrin] 800 mg PO Q6H PRN 5 Days #20 tab 10/01/17 Allergies Allergy/AdvReac Type Severity Reaction Status Date / Time clonidine [From Catapres] AdvReac Vomiting Verified 10/01/17 18:12 Review of Systems ROS Statement: Those systems with pertinent positive or pertinent negative responses have been documented in the HPI. ROS Other: All systems not noted in ROS Statement are negative. Constitutional: Denies: fever, chills, weight change, night sweats Respiratory: Denies: cough, dyspnea, wheezes, hemoptysis, stridor Cardiovascular: Denies: chest pain, palpitations Gastrointestinal: Denies: abdominal pain, nausea, vomiting Genitourinary: Denies: urgency, dysuria Musculoskeletal: Reports: back pain. Denies: joint swelling, arthralgia Skin: Denies: rash, lesions Neurological: Denies: headache, weakness, numbness, paresthesias, confusion, abnormal gait Past Medical History Past Medical History: Hypertension Additional Past Medical History / Comment(s): degenerative disc in back, diverticulosis. POS BLOOD IN STOOL. History of Any Multi-Drug Resistant Organisms: C-DIFF Date of last positivie culture/infection: 2008 MDRO Source:: stool Past Surgical History: Bowel Resection Additional Past Surgical History / Comment(s): COLONOSCOPY; 10 inches of colon removed from diverticulosis. Past Anesthesia/Blood Transfusion Reactions: No Reported Reaction Past Psychological History: Anxiety, Bipolar, Depression Smoking Status: Current every day smoker Past Alcohol Use History: None Reported Past Drug Use History: None Reported - Past Family History Mother Family Medical History: Congestive Heart Failure (CHF) General Exam - General Exam Comments Initial Comments: General: The patient is awake and alert, in no distress, and does not appear acutely ill. Eye: Pupils are equal, round and reactive to light, extra-ocular movements are intact. No nystagmus. There is normal conjunctiva bilaterally. No signs of icterus. Ears, nose, mouth and throat: There are moist mucous membranes and no oral lesions. Neck: The neck is supple, there is no tenderness or JVD. Cardiovascular: There is a regular rate and rhythm. No murmur, rub or gallop is appreciated. Respiratory: Lungs are clear to auscultation, respirations are non-labored, breath sounds are equal. No wheezes, stridor, rales, or rhonchi. Gastrointestinal: No CVA tenderness. Musculoskeletal: Full range of motion for flexion, hypertension, lateral flexion and rotation of the lumbar spine, patient does admit to increased pain lumbar spine with flexion and hypertension. Patient admits to midline tenderness to patient over the lumbar spine,as well as right-sided paravertebral tenderness. . Strength 5/5 of the lower extremities equally bilaterally. Sensation intact of the lower extremities equally bilaterally. +2 DP pulses equal bilaterally 2+. +2 deep tendon reflexes of the lower . Patient is able to heel and toe work with discomfort more so with toe walking in the lumbar spine. + SLR b/l. Neurological: A&O x 3. CN II-XII intact, There are no obvious motor or sensory deficits. Coordination appears grossly intact. Speech is normal. Skin: Skin is warm and dry and no rashes or lesions are noted. Psychiatric: Cooperative, appropriate mood & affect, normal judgment. Limitations: no limitations Course Vital Signs 10/01/17 10/01/17 17:52 19:55 Temperature 97.9 F Pulse Rate 77 68 Respiratory 16 18 Rate Blood Pressure 137/86 150/93 O2 Sat by Pulse 99 96 Oximetry Medical Decision Making - Medical Decision Making X-ray obtained of the lumbar spine revealed no acute process or fracture. Patient's neuro vascular examination unremarkable. No signs of cauda equina. At this time feel patient has a lumbar strain. Given patient had no history of trauma or injury to the back recently, & the injury occurred during a twisting motion. Patient was given ibuprofen 800 for pain which he stated helped minimally. Patient was offered a Toradol IM injection however he said that this would not work and would need something stronger. I discussed case with Dr. Lay this time we feel that patient would benefit from orthopedic surgery follow-up, for further evaluation treatment. Patient was instructed to use over -the-counter Tylenol or ibuprofen for pain management as needed. Patient agreed plan and was discharged in stable condition. Disposition Clinical Impression: Low back strain Disposition: HOME SELF-CARE Condition: Good Instructions: Acute Low Back Pain (ED) Additional Instructions: Please use medication as discussed. Please follow-up with orthopedic surgery in the next 1-2 days. Please return to emergency room if the symptoms increase or worsen or for any other concerns. Prescriptions: Cyclobenzaprine [Flexeril] 5 mg PO HS 4 Days #4 tab Ibuprofen [Motrin] 800 mg PO Q6H PRN 5 Days #20 tab PRN Reason: Pain Is patient prescribed a controlled substance at d/c from ED?: No Referrals: Sheridan Virgen MD [Primary Care Provider] - 1-2 days [facility] [Provider Group] - 1-2 days Time of Disposition: 19:48
[2017-10-01 19:56] VITALS: BP 150/93; PULSE 68; RESP 18
== END 2017-10-01 19:56 | disposition home or self-care (01) ==
LOC: EC 17:29
DX: S39.012A Strain of muscle, fascia and tendon of lower back, initial encounter (principal); F31.9 Bipolar disorder, unspecified; F41.9 Anxiety disorder, unspecified; F17.200 Nicotine dependence, unspecified, uncomplicated; Z79.899 Other long term (current) drug therapy; Z88.8 Allergy status to other drugs, medicaments and biological substances; Z53.8 Procedure and treatment not carried out for other reasons; X50.1XXA Overexertion from prolonged static or awkward postures, initial encounter
CPT/HCPCS: 72100; 99283

== ENCOUNTER → 2017-10-09 | Outpatient (CLI) | payer MEDICARE, OTHER ==
--- NOTE | 2017-10-09 14:09 | US ---
EXAMINATION TYPE: US scrotum with doppler. Grayscale and color Doppler Duplex imaging performed of t he scrotum. DATE OF EXAM: 10/09/2017 COMPARISON: NONE CLINICAL HISTORY: N50.9 LUMP IN SCROTUM. EXAM MEASUREMENTS: TESTICLES: Right Testicle: 3.8 x 1.8 x 2.6 cm Left Testicle: 3.5 x 1.7 x 2.4 cm EPIDIDYMIS HEAD: Right Epididymis: 1.0 cm Left Epididymis: 0.9 cm Doppler performed to assess for testicular vascularity; good bilateral color flow and waveforms are s een. There is no evidence of testicular torsion. Presence of hydroceles: Small amount of fluid visualized on the left Presence of varicoceles: Yes, on the left Cystic area visualize mid right testicle measuring 0.2 x 0.1 x 0.2 cm. Varicocele visualized at area of patient's palpable lump on the left side. IMPRESSION: Testicular cysts suspected, follow-up to assess for stability. Small left hydrocele. Vari cocele noted on the left. This is corresponding to the area of palpable abnormality.
== END | disposition home or self-care (01) ==
LOC: RADUSWWP 10:58
PROVIDERS: ATTEND Family Medicine
DX: N43.3 Hydrocele, unspecified (principal); I86.1 Scrotal varices
CPT/HCPCS: 76870; 93975

== ENCOUNTER 2017-11-01 17:17 | Emergency (ER) | payer MEDICARE, OTHER ==
[2017-11-01 17:22] VITALS: BP 182/103; PULSE 84; RESP 18; TEMP 98.3
--- NOTE | 2017-11-01 17:45 | ED ---
Skin/Abscess/FB HPI - General Chief complaint: Skin/Abscess/Foreign Body Stated complaint: Urogenital Time Seen by Provider: 11/01/17 17:24 Source: patient Mode of arrival: ambulatory Limitations: no limitations - History of Present Illness Initial comments: 52-year-old male patient presents to the emergency department today for evaluation of abscess to the posterior scrotum. Patient states that he did have this drained by his urologist this morning. Patient states that the packing has fell out so he presented here for further evaluation. Patient states that the area does feel somewhat more painful and swollen than this morning. Patient states he is not taking any pain medications for this. States he is taking Bactrim. He denies any fevers or chills. Denies any significant drainage from the site. Patient denies any recent rash, shortness breath, chest pain, abdominal pain, nausea, vomiting, diarrhea, constipation, back pain, numbness, tingling, dizziness, weakness, hematuria, dysuria, urinary urgency, urinary frequency, headache, visual changes, or any other complaints. - Related Data Home Medications Medication Instructions Recorded Confirmed Sertraline [Zoloft] 100 mg PO DAILY 05/07/17 11/01/17 lamoTRIgine [LaMICtal] 25 mg PO BID 05/07/17 11/01/17 Acetaminophen [Tylenol] 650 mg PO Q4H PRN 11/01/17 11/01/17 Cholecalciferol (Vitamin D3) 2,000 unit PO DAILY 11/01/17 11/01/17 [Vitamin D3] Cyclobenzaprine [Flexeril] 10 mg PO TID 11/01/17 11/01/17 Multivitamins, Thera [Multivitamin 1 tab PO DAILY 11/01/17 11/01/17 (formulary)] busPIRone HCl [Buspar] 10 mg PO TID 11/01/17 11/01/17 Previous Rx's Medication Instructions Recorded Hydrocodone/Acetaminophen [Coila 1 tab PO Q6HR PRN #12 tab 11/01/17 5-325] Allergies Allergy/AdvReac Type Severity Reaction Status Date / Time clonidine [From Catapres] AdvReac Vomiting Verified 11/01/17 17:30 Review of Systems ROS Statement: Those systems with pertinent positive or pertinent negative responses have been documented in the HPI. ROS Other: All systems not noted in ROS Statement are negative. Past Medical History Past Medical History: Hypertension Additional Past Medical History / Comment(s): degenerative disc in back, diverticulosis. POS BLOOD IN STOOL. History of Any Multi-Drug Resistant Organisms: C-DIFF Date of last positivie culture/infection: 2008 MDRO Source:: stool Past Surgical History: Bowel Resection Additional Past Surgical History / Comment(s): COLONOSCOPY; 10 inches of colon removed from diverticulosis. Past Anesthesia/Blood Transfusion Reactions: No Reported Reaction Past Psychological History: Anxiety, Bipolar, Depression Smoking Status: Current every day smoker Past Alcohol Use History: None Reported Past Drug Use History: None Reported - Past Family History Mother Family Medical History: Congestive Heart Failure (CHF) General Exam Limitations: no limitations General appearance: alert, in no apparent distress, other (This is a well- developed, well-nourished adult male patient in no acute distress. Vital signs upon presentation are temperature 98.3F, pulse 84, respirations 18, blood pressure 182/103, pulse ox 97% on room air.) Eye exam: Present: normal appearance, PERRL, EOMI. Absent: scleral icterus, conjunctival injection, periorbital swelling ENT exam: Present: normal exam, normal oropharynx, mucous membranes moist Respiratory exam: Present: normal lung sounds bilaterally. Absent: respiratory distress, wheezes, rales, rhonchi, stridor Cardiovascular Exam: Present: regular rate, normal rhythm, normal heart sounds. Absent: systolic murmur, diastolic murmur, rubs, gallop, clicks exam: Present: other (Patient has abscess with obvious incision to the posterior scrotum. There is no drainage currently. Area is soft.) Neurological exam: Present: alert, oriented X3, CN II-XII intact Psychiatric exam: Present: normal affect, normal mood Skin exam: Present: warm, dry, intact, normal color. Absent: rash Course Vital Signs 11/01/17 17:20 Temperature 98.3 F Pulse Rate 84 Respiratory 18 Rate Blood Pressure 182/103 O2 Sat by Pulse 97 Oximetry Medical Decision Making - Medical Decision Making 52-year-old male patient presents to the emergency department today for evaluation of abscess to the posterior scrotum. Patient presented for evaluation because the packing fell out after he had it drained this morning by his urologist. Physical examination did reveal an abscess with an obvious incision, area was soft. Slightly tender. My attending Dr. Basilio did speak to the urologist on-call who states to keep the area covered with gauze and have patient follow-up in the office tomorrow. Did discuss the plan with the patient. He is agreeable. Return parameters discussed in detail. He verbalizes understanding. Disposition Clinical Impression: Scrotal abscess Disposition: HOME SELF-CARE Condition: Good Instructions: Abscess (ED) Additional Instructions: Keep area covered with gauze. Take medication as directed. Follow-up with urologist tomorrow. Return immediately for any new, worsening, or concerning symptoms. Prescriptions: Hydrocodone/Acetaminophen [Coila 5-325] 1 tab PO Q6HR PRN #12 tab PRN Reason: Pain Is patient prescribed a controlled substance at d/c from ED?: Yes When asked, does pt state using other controlled substances?: No If prescribed controlled substance>3 days was MAPS reviewed?: Prescribed <3 Days If opioid is for acute pain is fill amount 7 days or less?: Yes If Rx opioid, was Start Talking consent form obtained?: Yes Referrals: Florencio Goodman MD [Primary Care Provider] - 1-2 days Kane Wilburn MD [STAFF PHYSICIAN] - 1-2 days Time of Disposition: 18:02
== END 2017-11-01 18:09 | disposition home or self-care (01) ==
LOC: EC 17:17
DX: N49.2 Inflammatory disorders of scrotum (principal); F31.9 Bipolar disorder, unspecified; F41.9 Anxiety disorder, unspecified; F17.200 Nicotine dependence, unspecified, uncomplicated; Z79.899 Other long term (current) drug therapy; Z88.8 Allergy status to other drugs, medicaments and biological substances
CPT/HCPCS: 99282

== ENCOUNTER → 2017-11-20 | Outpatient (CLI) | payer MEDICARE, OTHER ==
--- NOTE | 2017-11-20 16:48 | ECHOF ---
Referral Reason:R01.1 Heart murmur MEASUREMENTS -------- HEIGHT: 167.6 cm WEIGHT: 90.7 kg BP: RVIDd: 3.2 cm (< 3.3) IVSd: 1.1 cm (0.6 - 1.1) LVIDd: 4.6 cm (3.9 - 5.3) LVPWd: 1.3 cm (0.6 - 1.1) IVSs: 1.4 cm LVIDs: 3.3 cm LVPWs: 1.4 cm LAESV Index (A-L): 19.32 ml/m Ao Diam: 3.2 cm (2.0 - 3.7) AV Cusp: 1.8 cm (1.5 - 2.6) LA Diam: 3.1 cm (2.7 - 3.8) MV EXCURSION: 23.254 mm (> 18.000) MV EF SLOPE: 134 mm/s (70 - 150) EPSS: 0.4 cm MV E Golden: 0.73 m/s MV DecT: 238 ms MV A Golden: 0.95 m/s MV E/A Ratio: 0.77 RAP: 5.00 mmHg RVSP: 11.33 mmHg FINDINGS -------- Sinus rhythm. This was a technically adequate study. The left ventricular size is normal. There is borderline concentric left ventricular hypertrophy. Overall left ventricular systolic function is normal with, an EF between 55 - 60 %. The right ventricle is normal in size and function. Normal LA size by volume 22+/-6 ml/m2. The right atrium is normal in size. The aortic valve is trileaflet, and appears structurally normal. No aortic stenosis or regurgitation. The mitral valve is normal. There is trace to mild mitral regurgitation. Trace tricuspid regurgitation present. Right ventricular systolic pressure is normal at < 35 mmHg. Trace/mild (physiologic) pulmonic regurgitation. The aortic root size is normal. Normal inferior vena cava with normal inspiratory collapse consistent with estimated right atrial pre ssure of 5 mmHg. There is no pericardial effusion. CONCLUSIONS -------- 1. Sinus rhythm. 2. This was a technically adequate study. 3. The left ventricular size is normal. 4. There is borderline concentric left ventricular hypertrophy. 5. Overall left ventricular systolic function is normal with, an EF between 55 - 60 %. 6. Normal LA size by volume 22+/-6 ml/m2. 7. The aortic valve is trileaflet, and appears structurally normal. No aortic stenosis or regurgitati on. 8. There is trace to mild mitral regurgitation. 9. Trace tricuspid regurgitation present. 10. Right ventricular systolic pressure is normal at < 35 mmHg. 11. Trace/mild (physiologic) pulmonic regurgitation. 12. The aortic root size is normal. 13. There is no pericardial effusion. TONG SETTER: Adrian Gordon RDCS
== END | disposition home or self-care (01) ==
LOC: RADECHMAIN 12:51
PROVIDERS: ATTEND Family Medicine
DX: I34.0 Nonrheumatic mitral (valve) insufficiency (principal); I51.7 Cardiomegaly; I37.1 Nonrheumatic pulmonary valve insufficiency
CPT/HCPCS: 93306

== ENCOUNTER 2017-12-06 06:06 | Day surgery (SDC) | payer MEDICARE, OTHER ==
[2017-12-02 14:49] VITALS: BMI 31.4
--- NOTE | 2017-12-03 20:36 | P.GSHP ---
History of Present Illness H&P Date: 12/03/17 Chief Complaint: Chronicall infected scrotal cysts The patient is a 52-year-old male with a history of cutaneous cysts in the perineal area that have spontaneously drained multiple times over the last year. The patient was first seen by me on 11/01/2017 and there appeared to be a fluctuant area approximately one centimeter in diameter in the left posterior- lateral scrotal skin. I performed an incision and drainage and the patient was treated with Bactrim and the mass gradually decreased in size. The patient says that this is the same location that all cysts have occurred previously. I discussed excising this area of skin in hopes of eliminating future infections versus further observation and the patient prefers surgical treatment. - Constitutional Constitutional: Denies chills, Denies fever - Cardiovascular Cardiovascular: Denies chest pain, Denies palpitations, Denies shortness of breath - Respiratory Respiratory: Denies wheezing - Gastrointestinal Gastrointestinal: Denies abdominal pain - Genitourinary (Male) Genitourinary: Reports as per HPI Past Medical History Past Medical History: Hyperlipidemia, Hypertension, Musculoskeletal Disorder Additional Past Medical History / Comment(s): DDD. Diverticulosis. NO HTN RX SINCE 07/2017. SEBACEOUS CYST SCROTUM. PAST HX BLOOD IN STOOL. History of Any Multi-Drug Resistant Organisms: C-DIFF Date of last positivie culture/infection: 2008 MDRO Source:: stool Past Surgical History: Back Surgery, Bowel Resection Additional Past Surgical History / Comment(s): COLONOSCOPY; 10 inches of colon removed R/T diverticulosis. LAMINECTOMY 2015. Past Anesthesia/Blood Transfusion Reactions: No Reported Reaction Smoking Status: Current every day smoker - Past Family History Mother Family Medical History: Congestive Heart Failure (CHF) Medications and Allergies Home Medications Medication Instructions Recorded Confirmed Type Sertraline [Zoloft] 100 mg PO DAILY 05/07/17 12/02/17 History lamoTRIgine [LaMICtal] 100 mg PO DAILY 05/07/17 12/02/17 History Cholecalciferol (Vitamin D3) 2,000 unit PO DAILY 11/01/17 12/02/17 History [Vitamin D3] Cyclobenzaprine [Flexeril] 10 mg PO TID 11/01/17 12/02/17 History Multivitamins, Thera [Multivitamin 1 tab PO DAILY 11/01/17 12/02/17 History (formulary)] busPIRone HCl [Buspar] 15 mg PO TID 11/01/17 12/02/17 History Ibuprofen [Motrin] 600 mg PO Q8HR PRN 12/02/17 12/02/17 History Allergies Allergy/AdvReac Type Severity Reaction Status Date / Time clonidine [From Catapres] AdvReac Vomiting Verified 12/02/17 14:27 Surgical - Exam - General well developed, well nourished, no distress - Neck no masses, no lymphadectomy - Respiratory normal respiratory effort, clear to auscultation - Cardiovascular Rhythm: regular Abnormal Heart Sounds: no systolic murmur, no diastolic murmur - Abdomen Abdomen: soft, no organomegaly - Genitourinary normal penis with no external lesions, testicles present, other (There is thickening in the left posterior scrotal skin consistent with chronically infected sebaceous cysts or other cutaneous glands.) Assessment and Plan (1) Sebaceous cyst of scrotum Status: Acute Code(s): L72.3 - SEBACEOUS CYST SNOMED Code(s): 98775998 Plan: The patient will undergo an elliptical incision of the scrotal skin surrounding the area that has been infected multiple times in the past. He is aware of the operative risks which include anesthesia, bleeding, infection and recurrence of the infections elsewhere.
[~2017-12-06 06:06] MED LIST changes: +DEXAMETHASONE SOD PHOSPHATE 10 MG/ML 1 ML VIAL IV ONE; -LIDOCAINE 1% 20 ML VIAL (10MG/ML) FOR IV START INTRADERMA PRN; +MIDAZOLAM 2 MG/2 ML VIAL IV PRN; +ONDANSETRON 4 MG/2 ML VIAL IVP ONE; +SCOPOLAMINE 1.5MG/72HR PATCH TRANSDERM ONE; +ceFAZolin 1,000 MG in DEXTROSE/WATER 1 50ML.BAG IVPB ONE
[2017-12-06] MEDS ORDERED: LIDOCAINE 1% 20 ML VIAL (10MG/ML) FOR IV START INTRADERMA ONE (06:35)
[2017-12-06] MEDS ORDERED: LIDOCAINE 1% INJ 10MG/ML (20 ML MDV) ONE (07:30)
[2017-12-06] MEDS ORDERED: PROPOFOL 10 MG/ML 20 ML VIAL IV ONE (07:30)
[2017-12-06] MEDS ORDERED: ROCURONIUM BROMIDE 10 MG/ML 10 ML VIAL IV ONE (07:30)
[2017-12-06] MEDS ORDERED: MIDAZOLAM 2 MG/2 ML VIAL ONE (07:30)
[2017-12-06] MEDS ORDERED: fentaNYL (PF) 50 MCG/ML 2 ML AMP ONE (07:30)
[2017-12-06] MEDS ORDERED: KETOROLAC 30 MG/ML 1 ML VIAL ONE (07:30)
[2017-12-06] MEDS ORDERED: GLYCOPYRROLATE 0.2 MG/ML 2 ML VIAL ONE (07:30)
[2017-12-06] MEDS ORDERED: NEOSTIGMINE 1 MG/ML 10 ML VIAL ONE (07:30)
[2017-12-06] MEDS ORDERED: BUPIVACAIN-EPI 0.5%-1:200,000 30 ML VIAL SQ ONE ×2 (07:58)
--- NOTE | 2017-12-06 08:27 | P.OP ---
Date of Procedure: 12/06/17 Preoperative Diagnosis: Infected scrotal cyst Postoperative Diagnosis: Chronically infected scrotal cyst Procedure(s) Performed: Excision of scrotal cyst Anesthesia: ANDREW Surgeon: Sorin Funk Estimated Blood Loss (ml): 3 Pathology: none sent (Scrotal cyst) Condition: stable Disposition: PACU Indications for Procedure: The patient is a 52-year-old male with recurrent purulent drainage from the left posterior scrotum. On examination the patient appears to have a chronically infected cyst which spontaneously drains. Excision of the cyst is planned. Description of Procedure: The patient was taken the operating suite where adequate general anesthesia via orotracheal intubation was instituted. The patient was placed in the dorsal lithotomy position with his legs suspended from padded Colton stirrups. Pneumatic compression stockings were applied to the lower legs. The genitalia and groins were prepped with Betadine solution and draped in a sterile fashion. An elliptical incision measuring approximately 4 cm in length was made in the left posterior scrotal skin surrounding an area that had previously scarred from drainage. The incision was carried down using electrocautery into subcutaneous fat. There appeared to be a cyst adherent to the skin which tracked even more posteriorly. This was dissected down and completely excised using electrocautery. Bleeding vessels were controlled using electrocautery. The deep tissue was closed using interrupted 3-0 chromic. Skin was closed using running 3-0 chromic. 0.5% bupivacaine with epinephrine was infiltrated around the skin edges for pain control. Patient tolerated procedure well and left the operative room awake and in satisfactory condition. Blood loss was less than 3 mL.
[2017-12-06 08:32] VITALS: TEMP 97.1
[2017-12-06 08:33] VITALS: RESP 16
[2017-12-06] MEDS: HYDROmorphone 1 MG/ML 1 ML SYRINGE IVP PRN ×2 (08:43→08:48)
[2017-12-06] MEDS ORDERED: Acetaminophen-Codeine 300-30mg TAB PO ONE (09:29)
[2017-12-06 10:16] VITALS: BP 130/82; PULSE 66
--- NOTE | 2017-12-10 18:42 | CDI ---
Outpatient Documentation Clarification Form Date: 12/10/17 CDS/Edger Machine Operator Name: Maye Woody Phone: If any questions, call [address] Mixer Operator at [phone] Patient Name: Medardo Galan Admit Date: 12/06/17 Discharge Date: 12/06/17 ATTENTION: The [facility] Coding Staff appreciate your assistance in clarifying documentation. Please respond to the clarification below the line at the bottom and electronically sign. The [facility] Coding staff will review the response and follow-up if needed. Please note: Queries are made part of the Legal Health Record. If you have any questions, please contact the Road Mixer Operator. Dear Dr. Sorin Funk, What is the size of the excised lesion? 1 cm (see path report) What is the size of closure? 4cm (see op note) Thank you for your kind consideration. MTDD
== END 2017-12-06 10:58 | disposition home or self-care (01) ==
LOC: OR 06:06
PROVIDERS: ATTEND Urology
DX: L72.3 Sebaceous cyst (principal); E78.5 Hyperlipidemia, unspecified; I10 Essential (primary) hypertension; F31.9 Bipolar disorder, unspecified; F41.9 Anxiety disorder, unspecified; Z90.49 Acquired absence of other specified parts of digestive tract; Z87.19 Personal history of other diseases of the digestive system; Z79.899 Other long term (current) drug therapy; Z88.8 Allergy status to other drugs, medicaments and biological substances; F17.210 Nicotine dependence, cigarettes, uncomplicated
CPT/HCPCS: 11421; 12042; 96376; 96361; 96374; 96375; 99283; 88304; J2250; J2270; J1100; J2710; J2405; J2001; J3010; J1885; J1170; J0690; J2704

== ENCOUNTER 2017-12-06 16:14 | Emergency (ER) | payer MEDICARE, OTHER ==
[2017-12-06 16:48] VITALS: RESP 18; TEMP 98.6
[2017-12-06] MEDS ORDERED: ONDANSETRON 4 MG/2 ML VIAL IVP STA (17:20)
[2017-12-06] MEDS ORDERED: MORPHINE SULFATE 4 MG/ML SYRINGE IVP STA ×2 (17:20→18:38)
[2017-12-06] MEDS ORDERED: SODIUM CHLORIDE 0.9% 500 ML 500 ML IV ONE (17:20)
--- NOTE | 2017-12-06 17:53 | ED ---
General Adult HPI - General Chief complaint: Urogenital Stated complaint: genital bleeding Time Seen by Provider: 12/06/17 17:12 Source: patient Mode of arrival: ambulatory Limitations: no limitations - History of Present Illness Initial comments: 52-year-old male patient presents to the emergency department today for evaluation of pain and bleeding from surgical incision to his scrotum. Patient states that this morning he had a "cyst" removed from the scrotum with Dr. Funk. Patient states that since coming home he has had a lot of bleeding, states when he goes to change the pad the blood will just pouring to the floor into a puddle. Patient states that this is happened twice. Patient states that the pain is out of control despite him taking his Tylenol #3. States he is nauseated and weak. Patient denies any use of anticoagulant medications. His any difficulty with urination. Denies any fevers or chills. Denies any heavy lifting or stress on the surgical site. Patient denies any recent rash, shortness breath, chest pain, abdominal pain, nausea, diarrhea, constipation, back pain, numbness, tingling, dizziness, hematuria, dysuria, urinary urgency, urinary frequency, headache, visual changes, or any other complaints. - Related Data Home Medications Medication Instructions Recorded Confirmed Sertraline [Zoloft] 100 mg PO DAILY 05/07/17 12/06/17 lamoTRIgine [LaMICtal] 100 mg PO DAILY 05/07/17 12/06/17 Cholecalciferol (Vitamin D3) 2,000 unit PO DAILY 11/01/17 12/06/17 [Vitamin D3] Cyclobenzaprine [Flexeril] 10 mg PO TID 11/01/17 12/06/17 Multivitamins, Thera [Multivitamin 1 tab PO DAILY 11/01/17 12/06/17 (formulary)] busPIRone HCl [Buspar] 15 mg PO TID 11/01/17 12/06/17 Ibuprofen [Motrin] 600 mg PO Q8HR PRN 12/02/17 12/06/17 Atorvastatin [Lipitor] 20 mg PO HS 12/06/17 12/06/17 Previous Rx's Medication Instructions Recorded Acetaminophen-Codeine 300-30mg 1 tab PO Q6H PRN #10 tablet 12/06/17 [Tylenol w/codeine #3] Allergies Allergy/AdvReac Type Severity Reaction Status Date / Time clonidine [From Catapres] AdvReac Vomiting Verified 12/06/17 16:45 Review of Systems ROS Statement: Those systems with pertinent positive or pertinent negative responses have been documented in the HPI. ROS Other: All systems not noted in ROS Statement are negative. Past Medical History Past Medical History: Hypertension Additional Past Medical History / Comment(s): degenerative disc in back, diverticulosis. POS BLOOD IN STOOL. History of Any Multi-Drug Resistant Organisms: C-DIFF Date of last positivie culture/infection: 2008 MDRO Source:: stool Past Surgical History: Bowel Resection Additional Past Surgical History / Comment(s): COLONOSCOPY; 10 inches of colon removed from diverticulosis., pt had scrotal lump removed Past Anesthesia/Blood Transfusion Reactions: No Reported Reaction Past Psychological History: Anxiety, Bipolar, Depression Smoking Status: Current every day smoker Past Alcohol Use History: None Reported Past Drug Use History: None Reported - Past Family History Mother Family Medical History: Congestive Heart Failure (CHF) General Exam Limitations: no limitations General appearance: alert, in no apparent distress, other (This is a well- developed, well-nourished male patient in mild distress related to pain. Vital signs upon presentation are temperature 98.6F, pulse 127, respirations 18, blood pressure 155/88, pulse ox 96% on room air.) Eye exam: Present: normal appearance, PERRL, EOMI. Absent: scleral icterus, conjunctival injection, periorbital swelling Respiratory exam: Present: normal lung sounds bilaterally. Absent: respiratory distress, wheezes, rales, rhonchi, stridor Cardiovascular Exam: Present: regular rate, normal rhythm, normal heart sounds. Absent: systolic murmur, diastolic murmur, rubs, gallop, clicks GI/Abdominal exam: Present: soft, normal bowel sounds. Absent: distended, tenderness, guarding, rebound, rigid exam: Present: scrotal swelling, other (Patient has incision noted to the left lateral scrotum, well approximated. There is surrounding hematoma, firm to touch, very tender.). Absent: normal inspection Neurological exam: Present: alert, oriented X3, CN II-XII intact Psychiatric exam: Present: normal affect, normal mood Skin exam: Present: warm, dry, intact, normal color. Absent: rash Course Vital Signs 12/06/17 16:45 Temperature 98.6 F Pulse Rate 127 H Respiratory 18 Rate Blood Pressure 155/88 O2 Sat by Pulse 96 Oximetry Medical Decision Making - Medical Decision Making 52-year-old male patient presented to the emergency department today for complaints of pain, swelling, and bleeding from surgical incision site. Physical examination did reveal evidence of postsurgical hematoma with mild bleeding from a scrotal incision. Incision is well approximated. Patient applied the pad just about an hour prior to arrival, there was less than 25% of the pad had presence of blood. Patient blood pressure stable. He was given pain medication here in the emergency department. My attending Dr. Basilio see and evaluate the patient and did discuss the case with Dr. Wilburn who will see patient in the office on Saturday. He will be discharged home with instructions to apply ice and to rest. He is instructed to follow-up with urology on Saturday. Return parameters were discussed in detail. He verbalizes understanding and agrees with this plan. Disposition Clinical Impression: Postoperative pain, Hematoma Disposition: HOME SELF-CARE Condition: Good Instructions: Pain Management (ED), Hematoma (ED) Additional Instructions: Apply ice to the surgical site. Use ice 20 minutes at a time at least 3 times daily. Take home pain medication as directed. Follow-up with urology for recheck on Saturday. Return here immediately for any new, worsening, or concerning symptoms. Is patient prescribed a controlled substance at d/c from ED?: No Referrals: Florencio Goodman MD [Primary Care Provider] - 1-2 days Sorin Funk MD [STAFF PHYSICIAN] - 1-2 days Time of Disposition: 18:18
[2017-12-06] MEDS ORDERED: HYDROmorphone 1 MG/ML 1 ML SYRINGE IVP STA (18:16)
[2017-12-06 20:16] VITALS: BP 149/90; PULSE 88
== END 2017-12-06 19:05 | disposition home or self-care (01) ==
LOC: EC 16:14
DX: G89.18 Other acute postprocedural pain (principal); N99.840 Postprocedural hematoma of a genitourinary system organ or structure following a genitourinary system procedure; Y83.8 Other surgical procedures as the cause of abnormal reaction of the patient, or of later complication, without mention of misadventure at the time of the procedure; F41.9 Anxiety disorder, unspecified; F31.9 Bipolar disorder, unspecified; F17.200 Nicotine dependence, unspecified, uncomplicated; Z79.899 Other long term (current) drug therapy; Z88.8 Allergy status to other drugs, medicaments and biological substances
CPT/HCPCS: 99283; 96374; 96375; 96376; 96361; J2270; J2405

== ENCOUNTER 2017-12-11 08:23 | Emergency (ER) | payer MEDICARE, OTHER ==
[2017-12-11 08:28] VITALS: RESP 18
[2017-12-11] MEDS ORDERED: MORPHINE SULFATE 4 MG/ML SYRINGE IV STA (09:21)
[2017-12-11] MEDS ORDERED: ONDANSETRON 4 MG/2 ML VIAL IVP STA (09:21)
--- NOTE | 2017-12-11 09:57 | ED ---
General Adult HPI - General Chief complaint: Urogenital Stated complaint: post op bleeding, male gu Time Seen by Provider: 12/11/17 08:36 Source: patient Mode of arrival: ambulatory Limitations: no limitations - History of Present Illness Initial comments: 52-year-old male patient with past medical history hypertension, depression, presents to ED status post scrotal mass removal 12/06/17. Patient has complained of significant bleeding since surgical procedure. Patient was seen in ER day of surgery on 12/06/17 for bleeding, was diagnosed with hematoma. Patient was seen by a surgeon who performed the procedure on 12/09, the surgeon recommended patient to use ice pack on scrotum to decrease pain and bleeding. Patient continues to bleed, and now is endorsing weakness for 1 day. Systemic: Pt denies fatigue, myalgia, fever/chills, rash. Pt denies night sweats , weight loss. Neuro: Pt denies headache, visual disturbances, syncope or pre-syncope. HEENT: Pt denies ocular discharge or irritation, otalgia, rhinorrhea, pharyngitis or notable lymphadenopathy. Cardiopulmonary: Pt denies chest pain, SOB, heart palpitations. Abdominal/GI: Pt denies abdominal pain, n/v/d. : Pt denies dysuria, burning w/ urination, frequency/urgency. MSK: Pt denies myalgia, loss of strength or function in extremities. - Related Data Home Medications Medication Instructions Recorded Confirmed Sertraline [Zoloft] 100 mg PO DAILY 05/07/17 12/11/17 Cyclobenzaprine [Flexeril] 10 mg PO TID 11/01/17 12/11/17 Ibuprofen [Motrin Ib] 600 mg PO Q6HR 12/11/17 12/11/17 busPIRone HCL [Buspar] 15 mg PO TID 12/11/17 12/11/17 lamoTRIgine [LaMICtal] 100 mg PO DAILY 12/11/17 12/11/17 Allergies Allergy/AdvReac Type Severity Reaction Status Date / Time clonidine [From Catapres] AdvReac Vomiting Verified 12/11/17 08:43 Review of Systems ROS Statement: Those systems with pertinent positive or pertinent negative responses have been documented in the HPI. ROS Other: All systems not noted in ROS Statement are negative. Past Medical History Past Medical History: Hypertension Additional Past Medical History / Comment(s): degenerative disc in back, diverticulosis. POS BLOOD IN STOOL. History of Any Multi-Drug Resistant Organisms: C-DIFF Date of last positivie culture/infection: 2008 MDRO Source:: stool Past Surgical History: Bowel Resection Additional Past Surgical History / Comment(s): COLONOSCOPY; 10 inches of colon removed from diverticulosis., pt had scrotal lump removed Past Anesthesia/Blood Transfusion Reactions: No Reported Reaction Past Psychological History: Anxiety, Bipolar, Depression Smoking Status: Current every day smoker Past Alcohol Use History: None Reported Past Drug Use History: None Reported - Past Family History Mother Family Medical History: Congestive Heart Failure (CHF) General Exam - General Exam Comments Initial Comments: Constitutional: NAD, AOX3, Pt has pleasant affect. HEENT: NC/AT, trachea midline, neck supple, no lymphadenopathy. Posterior pharynx non erythematous, without exudates. External ears appear normal, without discharge. Mucous membranes moist. Eyes PERRLA. There is no scleral icterus. Cardiopulmonary: RRR, no murmurs, rubs or gallops, no JVD noted. Lungs CTAB in anterior and posterior mckee. No peripheral edema. Abdominal exam: Abdomen soft and non-distended. Abdomen non-tender to palpation in all 4 quadrants. Bowel sounds active in LLQ. No hepatosplenomegaly. : Scrotum is edematous and ecchymotic. 2 x 2 centimeter hematoma noted at base of scrotum, expressed and removed by urologist Dr. Funk. No active bleeding noted. Small amount of coagulated blood seen at site of incision. Limitations: no limitations Course Vital Signs 12/11/17 08:24 Temperature 98.3 F Pulse Rate 110 H Respiratory 18 Rate Blood Pressure 146/102 O2 Sat by Pulse 100 Oximetry Medical Decision Making - Medical Decision Making Hemoglobin stable at 12.7. Vitals stable, HR 87. No active bleeding. Patient pain well-controlled with administered analgesic. Patient seen by Dr. Vora, urologist who performed the initial surgery. Urologist expressed out the remainder of the hematoma. Recommends compress and ice pack to control bleeding /pain. Recommended no further interventions. Patient to control pain with over -the-counter nonsteroidal ANTI-INFLAMMATORIES. If continued bleeding or new bleeding patient to follow-up in ED, or with urologist. Disposition Clinical Impression: Hematoma (nontraumatic) of male genital organs Disposition: HOME SELF-CARE Condition: Good Additional Instructions: Patient to adhere to previously discussed treatment plan directed. Patient to follow up with PCP in 1-2 days or urologist. Patient to return to ED if symptoms do not improve or if continued bleeding. Is patient prescribed a controlled substance at d/c from ED?: No Referrals: Folrencio Goodman MD [Primary Care Provider] - 1-2 days
[2017-12-11 10:28] LABS: Basophils # (A) 0.1 k/uL (0-0.2); Basophils % (A) 1 %; Eosinophils # (A) 0.5 k/uL (0-0.7); Eosinophils % (A) 5 %; HCT 39.4 % (39.0-53.0); HGB 12.9 gm/dL (13.0-17.5); Lymphocytes # (A) 1.9 k/uL (1.0-4.8); Lymphocytes % (A) 18 %; MCH 28.5 pg (25.0-35.0); MCHC 32.7 g/dL (31.0-37.0); MCV 87.2 fL (80.0-100.0); Mean Platelet Volume 6.4; Monocytes # (A) 0.5 k/uL (0-1.0); Monocytes % (A) 5 %; Neutrophils # (A) 7.3 k/uL (1.3-7.7); Neutrophils % (A) 71 %; Platelet Count 311 k/uL (150-450); RBC 4.52 m/uL (4.30-5.90); RDW 13.9 % (11.5-15.5); WBC 10.4 k/uL (3.8-10.6)
[2017-12-11 10:37] LABS: Anion Gap 5 mmol/L; Blood Urea Nitrogen 12 mg/dL (9-20); Calcium 8.9 mg/dL (8.4-10.2); Carbon Dioxide 29 mmol/L (22-30); Chloride 106 mmol/L (98-107); Glucose 89 mg/dL (74-99); Potassium 4.6 mmol/L (3.5-5.1); Sodium 140 mmol/L (137-145)
[2017-12-11 11:14] VITALS: BP 142/92; PULSE 84; TEMP 98.1
== END 2017-12-11 11:35 | disposition home or self-care (01) ==
LOC: EC 08:23
DX: N50.1 Vascular disorders of male genital organs (principal); F32.9 Major depressive disorder, single episode, unspecified; F41.9 Anxiety disorder, unspecified; F17.200 Nicotine dependence, unspecified, uncomplicated; Z98.890 Other specified postprocedural states; Z79.1 Long term (current) use of non-steroidal anti-inflammatories (NSAID); Z79.899 Other long term (current) drug therapy; Z88.8 Allergy status to other drugs, medicaments and biological substances
CPT/HCPCS: 36415; 80048; 85025; 99283; 96374; 96375; J2270; J2405

== ENCOUNTER 2017-12-14 23:59 | Emergency (ER) | payer MEDICARE, OTHER ==
[2017-12-15] MEDS ORDERED: KETOROLAC 30 MG/ML 1 ML VIAL IVP STA (00:40)
[2017-12-15] MEDS ORDERED: MORPHINE SULFATE 2 MG/ML SYRINGE IVP STA (00:40)
[2017-12-15] MEDS ORDERED: ONDANSETRON 4 MG/2 ML VIAL IVP STA (00:40)
[2017-12-15] MEDS ORDERED: SODIUM CHLORIDE 0.9% 500 ML 500 ML IV ONE (00:40)
--- NOTE | 2017-12-15 00:49 | ED ---
Skin/Abscess/FB HPI - General Chief complaint: Skin/Abscess/Foreign Body Stated complaint: Surgical Site Issues Time Seen by Provider: 12/15/17 00:10 Source: patient, family Mode of arrival: ambulatory Limitations: no limitations - History of Present Illness Initial comments: 52-year-old male patient presents to the emergency department today with complaints of drainage, pain, and dehiscence of surgical site. Patient had removal of sebaceous cyst from the posterior scrotum on 12/06/[address] Funk. Patient states that he had subsequent emergency visits for development of hematoma was seen on the and then subsequently on the where he underwent drainage of the hematoma by Dr. Funk. Patient states that things seemed to be improving however this morning he noticed that the incision site had opened and started draining foul-smelling fluid containing pus and blood. He denies any lifting, pulling, or straining of the surgical site. Patient states he has been nauseated with this. He denies any fevers or chills. Denies any difficulty with urination. Denies any significant swelling to the scrotum. Patient denies any recent rash, shortness breath, chest pain, cough, congestion, abdominal pain, diarrhea, constipation, back pain, numbness, tingling, dizziness, weakness, hematuria, dysuria, urinary urgency, urinary frequency, headache, visual changes, or any other complaints. - Related Data Home Medications Medication Instructions Recorded Confirmed Sertraline [Zoloft] 100 mg PO DAILY 05/07/17 12/15/17 Cyclobenzaprine [Flexeril] 10 mg PO TID 11/01/17 12/15/17 Ibuprofen [Motrin Ib] 600 mg PO Q6HR 12/11/17 12/15/17 busPIRone HCL [Buspar] 15 mg PO TID 12/11/17 12/15/17 lamoTRIgine [LaMICtal] 100 mg PO DAILY 12/11/17 12/15/17 Previous Rx's Medication Instructions Recorded Sulfamethoxazole/Trimethoprim 1 each PO BID #20 tablet 12/15/17 [Bactrim DS 800-160 mg] Allergies Allergy/AdvReac Type Severity Reaction Status Date / Time clonidine [From Catapres] AdvReac Vomiting Verified 12/15/17 00:04 Review of Systems ROS Statement: Those systems with pertinent positive or pertinent negative responses have been documented in the HPI. ROS Other: All systems not noted in ROS Statement are negative. Past Medical History Past Medical History: Hypertension Additional Past Medical History / Comment(s): degenerative disc in back, diverticulosis. POS BLOOD IN STOOL. History of Any Multi-Drug Resistant Organisms: C-DIFF Date of last positivie culture/infection: 2008 MDRO Source:: stool Past Surgical History: Bowel Resection Additional Past Surgical History / Comment(s): COLONOSCOPY; 10 inches of colon removed from diverticulosis., pt had scrotal lump removed Past Anesthesia/Blood Transfusion Reactions: No Reported Reaction Past Psychological History: Anxiety, Bipolar, Depression Smoking Status: Current every day smoker Past Alcohol Use History: None Reported Past Drug Use History: None Reported - Past Family History Mother Family Medical History: Congestive Heart Failure (CHF) General Exam Limitations: no limitations General appearance: alert, in no apparent distress, other (This is a well- developed, well-nourished adult male patient in no acute distress. Vital signs upon presentation are temperature 98.4F, pulse 93, respirations 20, blood pressure 160/100, pulse ox 99% on room air.) Eye exam: Present: normal appearance, PERRL, EOMI. Absent: scleral icterus, conjunctival injection, periorbital swelling ENT exam: Present: normal exam, normal oropharynx, mucous membranes moist Respiratory exam: Present: normal lung sounds bilaterally. Absent: respiratory distress, wheezes, rales, rhonchi, stridor Cardiovascular Exam: Present: regular rate, normal rhythm, normal heart sounds. Absent: systolic murmur, diastolic murmur, rubs, gallop, clicks exam: Present: testicular tenderness, other (Patient has dehisced surgical site with drainage of yellow foul-smelling fluid. No erythema or swelling noted.). Absent: scrotal swelling Neurological exam: Present: alert, oriented X3, CN II-XII intact Psychiatric exam: Present: normal affect, normal mood Skin exam: Present: warm, dry, intact, normal color. Absent: rash Course Vital Signs 12/15/17 12/15/17 00:02 01:56 Temperature 98.4 F 97.8 F Pulse Rate 93 97 Respiratory 20 16 Rate Blood Pressure 160/100 143/85 O2 Sat by Pulse 99 97 Oximetry Medical Decision Making - Medical Decision Making 52-year-old male patient presented to the emergency department today for evaluation of his surgical incision site. Physical examination did reveal a 4 cm dehisced incision with small amount of purulent drainage. This was cultured. Labs reviewed and did reveal mildly elevated white blood cell count at 12,000. Patient is afebrile, vital signs stable. We will apply wet-to-dry dressing, patient educated regarding dressing changes. He'll be started on Bactrim. He is instructed to follow-up with urology for recheck on Saturday. Return parameters discussed in detail. He verbalizes understanding and agrees with this plan. - Lab Data Result diagrams: 12/15/17 01:30 12/15/17 01:30 Lab Results 12/15/17 12/15/17 Range/Units 01:30 01:30 WBC 12.3 H (3.8-10.6) k/uL RBC 4.83 (4.30-5.90) m/uL Hgb 13.3 (13.0-17.5) gm/dL Hct 41.7 (39.0-53.0) % MCV 86.3 (80.0-100.0) fL MCH 27.5 (25.0-35.0) pg MCHC 31.8 (31.0-37.0) g/dL RDW 13.8 (11.5-15.5) % Plt Count 343 (150-450) k/uL Neutrophils % 63 % Lymphocytes % 25 % Monocytes % 6 % Eosinophils % 4 % Basophils % 1 % Neutrophils # 7.8 H (1.3-7.7) k/uL Lymphocytes # 3.0 (1.0-4.8) k/uL Monocytes # 0.8 (0-1.0) k/uL Eosinophils # 0.5 (0-0.7) k/uL Basophils # 0.1 (0-0.2) k/uL Sodium 141 (137-145) mmol/L Potassium 4.6 (3.5-5.1) mmol/L Chloride 108 H (98-107) mmol/L Carbon Dioxide 23 (22-30) mmol/L Anion Gap 10 mmol/L BUN 10 (9-20) mg/dL Creatinine 0.96 (0.66-1.25) mg/dL Est GFR (CKD-EPI)AfAm >90 (>60 ml/min/1.73 sqM) Est GFR (CKD-EPI)NonAf >90 (>60 ml/min/1.73 sqM) Glucose 90 (74-99) mg/dL Calcium 9.6 (8.4-10.2) mg/dL Total Bilirubin 0.6 (0.2-1.3) mg/dL AST 21 (17-59) U/L ALT 27 (21-72) U/L Alkaline Phosphatase 57 (38-126) U/L Total Protein 6.7 (6.3-8.2) g/dL Albumin 3.8 (3.5-5.0) g/dL Disposition Clinical Impression: Dehiscence of surgical wound Disposition: HOME SELF-CARE Condition: Good Instructions: Acute Wound Care (ED), Wound Dehiscence (ED) Additional Instructions: Apply wet to dry dressings to the surgical site. Complete antibiotic prescription in full. Follow up with urologist for recheck as soon as possible. Prescriptions: Sulfamethoxazole/Trimethoprim [Bactrim DS 800-160 mg] 1 each PO BID #20 tablet Is patient prescribed a controlled substance at d/c from ED?: No Referrals: Florencio Goodman MD [Primary Care Provider] - 1-2 days Sorin Funk MD [STAFF PHYSICIAN] - 1-2 days Time of Disposition: 02:39
[2017-12-15 01:45] LABS: Basophils # (A) 0.1 k/uL (0-0.2); Basophils % (A) 1 %; Eosinophils # (A) 0.5 k/uL (0-0.7); Eosinophils % (A) 4 %; HCT 41.7 % (39.0-53.0); HGB 13.3 gm/dL (13.0-17.5); Lymphocytes % (A) 25 %; MCH 27.5 pg (25.0-35.0); MCHC 31.8 g/dL (31.0-37.0); MCV 86.3 fL (80.0-100.0); Mean Platelet Volume 6.3; Monocytes # (A) 0.8 k/uL (0-1.0); Monocytes % (A) 6 %; Neutrophils # (A) 7.8 k/uL (1.3-7.7); Neutrophils % (A) 63 %; Platelet Count 343 k/uL (150-450); RBC 4.83 m/uL (4.30-5.90); RDW 13.8 % (11.5-15.5); WBC 12.3 k/uL (3.8-10.6)
[2017-12-15 01:55] LABS: ALT 27 U/L (21-72); AST 21 U/L (17-59); Albumin 3.8 g/dL (3.5-5.0); Alkaline Phosphatase 57 U/L (38-126); Anion Gap 10 mmol/L; Blood Urea Nitrogen 10 mg/dL (9-20); Calcium 9.6 mg/dL (8.4-10.2); Carbon Dioxide 23 mmol/L (22-30); Chloride 108 mmol/L (98-107); Glucose 90 mg/dL (74-99); Potassium 4.6 mmol/L (3.5-5.1); Sodium 141 mmol/L (137-145); Total Bilirubin 0.6 mg/dL (0.2-1.3); Total Protein 6.7 g/dL (6.3-8.2)
[2017-12-15 01:59] VITALS: BP 143/85; PULSE 97; RESP 16; TEMP 97.8
[2017-12-15] MEDS ORDERED: SULFAMETH-TMP DS STARTER PACK 2 TAB BTL PO STA (02:39)
[2017-12-15] MEDS ORDERED: ACET/COD 300 MG/30 MG STARTER PACK 6 TAB BTL PO STA (02:42)
== END 2017-12-15 03:06 | disposition home or self-care (01) ==
LOC: EC 23:59
DX: T81.31XA Disruption of external operation (surgical) wound, not elsewhere classified, initial encounter (principal); D72.829 Elevated white blood cell count, unspecified; R11.0 Nausea; F31.9 Bipolar disorder, unspecified; F41.9 Anxiety disorder, unspecified; F17.200 Nicotine dependence, unspecified, uncomplicated; Z79.1 Long term (current) use of non-steroidal anti-inflammatories (NSAID); Z79.899 Other long term (current) drug therapy; Z88.8 Allergy status to other drugs, medicaments and biological substances; Z98.890 Other specified postprocedural states
CPT/HCPCS: 36415; 80053; 85025; 87040; 87070; 87205; 99283; 96374; 96375 ×2; J2405; J1885; J2270

== ENCOUNTER → 2018-01-23 | Outpatient (CLI) | payer MEDICARE, OTHER ==
--- NOTE | 2018-01-23 15:44 | XR ---
EXAMINATION TYPE: XR cervical spine 5 views comp, XR shoulder complete 3 views LT DATE OF EXAM: 01/23/2018 COMPARISON: None HISTORY: 52-year-old male with cervicalgia, neck pain, left shoulder pain FINDINGS: Cervical spine: No predental space widening or prevertebral soft tissue swelling. Straightening of the upper cervical lordosis. Moderate degenerative disc disease C5-C6 with disc space narrowing and endplate spondylosi s. Additional mild endplate spondylosis along with facet and uncovertebral joint arthropathy greatest in the mid to lower cervical spine. Alignment is maintained. On the right, there is mild bony neuroforaminal narrowing at C5-C6. On the left, there is mild bony neuroforaminal narrowing at C3-C4 and mild to moderate at C5-C6. Normal odontoid view. Left shoulder: Mild degenerative joint space narrowing with marginal spurring at the acromioclavicular joint. Subacr omial space is preserved. No tendinous or bursal calcifications. Bony irregularity and sclerosis of t he greater tuberosity. No acute fracture, subluxation, or dislocation. Visualized left hemithorax is clear. IMPRESSION: 1. Cervical spine: Mild to moderate spondylotic change greatest at C5-C6. Changes result in mild to m oderate neuroforaminal stenosis on the left at C5-C6 and mild at additional levels as above. 2. Left shoulder: Some bony changes suggest chronic rotator cuff tendinopathy. Mild AC joint OA. No a cute osseous abnormality seen.
== END | disposition home or self-care (01) ==
LOC: RADXRMAIN 10:49
PROVIDERS: ATTEND Physician Assistant
DX: M99.71 Connective tissue and disc stenosis of intervertebral foramina of cervical region (principal); M47.812 Spondylosis without myelopathy or radiculopathy, cervical region; M19.012 Primary osteoarthritis, left shoulder
CPT/HCPCS: 72050

== ENCOUNTER → 2018-02-28 | Outpatient (CLI) | payer MEDICARE, OTHER ==
--- NOTE | 2018-03-02 10:57 | MR ---
EXAMINATION TYPE: MR cervical spine wo con DATE OF EXAM: 02/28/2018 COMPARISON: Plain film 01/23/2018 HISTORY: Spinal stenosis, cervical region TECHNIQUE: Multiplanar, multisequence images of the cervical spine were acquired. C2-C3: No evidence for degenerative disc disease. No disc bulge/herniation or protrusion. No Canal stenosis. Foramina are patent bilaterally. C3-C4: Uncovertebral joint hypertrophy and facet arthropathy cause some left-sided foraminal encroach ment, there is posterior extension of endplate disc complex but no significant central canal stenosis , only mild anterior mass effect on the thecal sac. C4-C5: Posterior extension endplate disc complex causes anterior mass effect on the thecal sac, only minimal central stenosis, there is a central posterior disc herniation possibly contacting the anteri or cervical cord. Only mild foraminal encroachment present. C5-C6: Bilateral foraminal encroachment due to uncovertebral joint hypertrophy. Posterior extension e ndplate disc complex causes mild anterior mass effect on the thecal sac, mild central stenosis. C6-C7: Bilateral foraminal encroachment present due to uncovertebral joint hypertrophy, posterior ext ension of endplate disc complex causes mild anterior mass effect on the thecal sac, minimal central s tenosis. C7-T1: No evidence for degenerative disc disease. No disc bulge/herniation or protrusion. No Canal stenosis. Foramina are patent bilaterally. Cervical segments are intact. There is near normal alignment, minimal retrolisthesis grade 1 C3-4, C 4-5 and C5-6. Spondylosis is present at multilevels with some endplate discogenic marrow signal quinonez e C3-4 and C5-6, C6-7. Cervical spinal cord is of normal signal. Craniovertebral junction relations hips are within normal limits. Cervical vertebral bodies show preserved height. Loss of disc height signal present at the intervertebral levels. IMPRESSION: Degenerative disc disease as described. Multilevel foraminal encroachment. Disc herniation is small a t C4-5.
== END | disposition home or self-care (01) ==
LOC: RADMRIMAIN 13:12
PROVIDERS: ATTEND Family Medicine
DX: M50.221 Other cervical disc displacement at C4-C5 level (principal); M50.30 Other cervical disc degeneration, unspecified cervical region
CPT/HCPCS: 72141

== ENCOUNTER → 2018-03-10 | Outpatient (CLI) | payer MEDICARE, OTHER ==
--- NOTE | 2018-03-10 08:43 | MR ---
EXAMINATION TYPE: MR shoulder LT wo con DATE OF EXAM: 03/10/2018 COMPARISON: Left shoulder radiographs dated 02/28/2018 from an outside institution HISTORY: Left shoulder pain TECHNIQUE: Multiplanar, multisequence imaging of the left shoulder is performed without contrast. FINDINGS: Rotator Cuff: There is a 7 x 8 mm intrasubstance tear of the supraspinatus just distal to the myotend inous junction. There is diffuse bursal surface fiber fraying and moderate tendinosis. There is 6 x 4 mm intrasubstance tear of the infraspinatus and moderate tendinosis. Teres minor and subscapularis a re unremarkable in muscle volume and signal. Acromioclavicular Joint: There is moderate acromioclavicular arthropathy with capsular hypertrophy, m arginal osteophytes, subchondral cystic formation and joint space narrowing. No significant downslopi ng of the acromion. Glenohumeral Joint: There are small marginal osteophytes of the humeral head with mild joint space na rrowing and diffuse chondral heterogeneity without focal full-thickness cartilaginous defect. Labrum: The labrum appears grossly intact given limitation of non-arthrogram study. There is labral d egeneration of the anterior inferior glenoid labrum. Biceps Tendon: The long head of biceps is in normal location within bicipital groove. There is attenu ation in the intra-articular portion of the biceps tendon relating to moderate tendinopathy. Bone marrow signal: There is a T1/T2 hypointense probable bone island of the humeral head measuring 4 mm appearing sclerotic on the outside radiographs. Other: There is a small amount of fluid within the subcoracoid as well as the subdeltoid/subacromial bursa. IMPRESSION: 1. Subcentimeter intrasubstance tears superimposed upon moderate tendinopathy of the supraspinatus an d infraspinatus as described above. 2. Moderate intra-articular portion biceps tendinosis. 3. Moderate acromioclavicular arthropathy without significant internal impingement on the supraspinat us. 4. Mild glenohumeral arthropathy and chondrosis. 5. Labral degeneration of the anterior inferior glenoid labrum without discrete tear. 6. Small degree of fluid within the subcoracoid as well as the subdeltoid/subacromial bursa that may clinically relate to bursitis.
== END | disposition home or self-care (01) ==
LOC: RADMRIMAIN 07:30
PROVIDERS: ATTEND Orthopaedic Surgery
DX: M19.012 Primary osteoarthritis, left shoulder (principal); M75.102 Unspecified rotator cuff tear or rupture of left shoulder, not specified as traumatic; M24.112 Other articular cartilage disorders, left shoulder; M75.82 Other shoulder lesions, left shoulder

== ENCOUNTER 2018-03-22 20:40 | Emergency (ER) | payer MEDICARE, OTHER ==
[2018-03-22] MEDS ORDERED: KETOROLAC 30 MG/ML 1 ML VIAL IM STA (21:37)
--- NOTE | 2018-03-22 22:02 | XR ---
EXAMINATION TYPE: XR shoulder complete LT DATE OF EXAM: 03/22/2018 CLINICAL HISTORY: Pain after fall injury today. TECHNIQUE: Three views of the left shoulder are obtained. COMPARISON: Left shoulder x-ray January 23, 2018 FINDINGS: There is no acute fracture/dislocation evident in the left shoulder. Stable mild to modera te narrowing at acromioclavicular joint. Glenohumeral joint is maintained. The visualized ribs are i ntact and unremarkable. IMPRESSION: There is no acute fracture or dislocation in the left shoulder. No significant change fr om prior.
--- NOTE | 2018-03-22 22:29 | ED ---
General Adult HPI - General Chief complaint: Extremity Injury, Upper Stated complaint: Neck pain/shoulder pain Time Seen by Provider: 03/22/18 21:23 Source: patient, RN notes reviewed Mode of arrival: ambulatory Limitations: no limitations - History of Present Illness Initial comments: 52-year-old male presents to the emergency department for a chief complaint of left shoulder pain 2 days. Patient states 2 days ago he slipped and fell onto his left shoulder. He states pain is worsened since that time. He denies hitting his head or neck. Patient states he has to twin ligaments in his left shoulder and is due to have surgery in one month. Patient would like to make sure he did not further injure the shoulder. Patient denies hitting his head or neck. No loss of consciousness. Patient has no other complaints at this time including shortness of breath, chest pain, abdominal pain, nausea or vomiting, headache, or visual changes. - Related Data Home Medications Medication Instructions Recorded Confirmed Cyclobenzaprine [Flexeril] 10 mg PO TID 11/01/17 03/22/18 Ibuprofen [Motrin Ib] 600 mg PO Q6HR 12/11/17 03/22/18 lamoTRIgine [LaMICtal] 100 mg PO DAILY 12/11/17 03/22/18 Acetaminophen [Tylenol] 650 mg PO Q8HR 03/22/18 03/22/18 Sertraline [Zoloft] 150 mg PO DAILY 03/22/18 03/22/18 traMADol HCL [Ultram] 50 mg PO Q6H 03/22/18 03/22/18 Allergies Allergy/AdvReac Type Severity Reaction Status Date / Time clonidine [From Catapres] AdvReac Vomiting Verified 03/22/18 22:05 Review of Systems ROS Statement: Those systems with pertinent positive or pertinent negative responses have been documented in the HPI. ROS Other: All systems not noted in ROS Statement are negative. Past Medical History Past Medical History: Hypertension Additional Past Medical History / Comment(s): degenerative disc in back, diverticulosis. POS BLOOD IN STOOL. History of Any Multi-Drug Resistant Organisms: C-DIFF Date of last positivie culture/infection: 2008 MDRO Source:: stool Past Surgical History: Bowel Resection Additional Past Surgical History / Comment(s): COLONOSCOPY; 10 inches of colon removed from diverticulosis., pt had scrotal lump removed Past Anesthesia/Blood Transfusion Reactions: No Reported Reaction Past Psychological History: Anxiety, Bipolar, Depression Smoking Status: Current every day smoker Past Alcohol Use History: None Reported Past Drug Use History: None Reported - Past Family History Mother Family Medical History: Congestive Heart Failure (CHF) General Exam Limitations: no limitations General appearance: alert, in no apparent distress Head exam: Present: atraumatic, normocephalic, normal inspection Eye exam: Present: normal appearance, PERRL, EOMI. Absent: scleral icterus, conjunctival injection, periorbital swelling ENT exam: Present: normal exam, mucous membranes moist Neck exam: Present: normal inspection, full ROM. Absent: tenderness, meningismus, lymphadenopathy Respiratory exam: Present: normal lung sounds bilaterally. Absent: respiratory distress, wheezes, rales, rhonchi, stridor Cardiovascular Exam: Present: regular rate, normal rhythm, normal heart sounds. Absent: systolic murmur, diastolic murmur, rubs, gallop, clicks GI/Abdominal exam: Present: soft, normal bowel sounds. Absent: distended, tenderness, guarding, rebound, rigid Extremities exam: Present: tenderness (Generalized tenderness of the left shoulder), normal capillary refill (Capillary refill less than 2 seconds and radial pulse 2+ in the left upper extremity), other (Sensation intact in the left upper extremity). Absent: full ROM (Patient has 90 flexion and abduction of the left shoulder), joint swelling (No edema or ecchymosis noted in the left shoulder) Neurological exam: Present: alert, oriented X3, CN II-XII intact Psychiatric exam: Present: normal affect, normal mood Course Vital Signs 03/22/18 21:16 Temperature 98.2 F Pulse Rate 99 Respiratory 18 Rate Blood Pressure 168/91 O2 Sat by Pulse 96 Oximetry Medical Decision Making - Medical Decision Making 52-year-old male presents to the emergency department for a chief complaint of left shoulder pain. Patient fell on his left shoulder 2 days ago and has had previous ligamentous injuries requiring surgery in one month. Pain has worsened since his fall. On exam pain is exacerbated with flexion and abduction of the left shoulder. He has generalized shoulder tenderness. He did not hit his head or neck. X-ray of the shoulder shows no acute fracture or dislocation. Discussed findings with patient. At this point he will follow-up with his orthopedic physician Dr. Braaksma. He was given Toradol which did help with his pain. He will return if he has any worsening symptoms. Disposition Clinical Impression: Shoulder pain, left Disposition: HOME SELF-CARE Condition: Good Instructions (If sedation given, give patient instructions): Shoulder Pain (ED) Additional Instructions: Please take Motrin and Tylenol for pain. Please follow-up with your wildfire prevention specialist in 1-2 days. Please return to the emergency department if you have any worsening symptoms. Is patient prescribed a controlled substance at d/c from ED?: No Referrals: Florencio Goodman MD [Primary Care Provider] - 1-2 days Nando Daniels MD [Medical Doctor] - 1-2 days Time of Disposition: 22:28
[2018-03-22] MEDS ORDERED: ACET/COD 300 MG/30 MG STARTER PACK 6 TAB BTL PO STA (22:33)
[2018-03-22 22:41] VITALS: BP 145/85; PULSE 90; RESP 20; TEMP 98
== END 2018-03-22 22:41 | disposition home or self-care (01) ==
LOC: EC 20:40
DX: M25.512 Pain in left shoulder (principal); I10 Essential (primary) hypertension; F31.9 Bipolar disorder, unspecified; F41.9 Anxiety disorder, unspecified; F17.200 Nicotine dependence, unspecified, uncomplicated; Z79.1 Long term (current) use of non-steroidal anti-inflammatories (NSAID); Z79.891 Long term (current) use of opiate analgesic; Z79.899 Other long term (current) drug therapy; Z88.8 Allergy status to other drugs, medicaments and biological substances
CPT/HCPCS: 73030; 99283; 96372; J1885

== ENCOUNTER → 2018-04-01 | Outpatient (CLI) | payer MEDICARE ==
[2018-03-28 11:23] VITALS: BMI 32.3
[2018-04-01 13:21] VITALS: BP 164/111; PULSE 64; RESP 16
--- NOTE | 2018-04-01 14:04 | P.PAINCN ---
History of Present Illness - Reason for Consult Consult date: 04/01/18 - History of Present Illness This 52 years old male with a chronic history of severe neck pain and left shoulder pain started almost a year ago, the pain is constant and continuous and increases with any neck movement or any activity, and 2 weeks ago patient had slipped and fell and he reported the intensity of the pain increases in his neck and left shoulder, patient reported that the pain radiated from the neck to the left upper extremity associated with numbness and tingling sensation, intensity of the pain is 7/10 increased to 10 over 10, is currently on Ultram 50 mg every 6 hours, Motrin 600 mg every 6 hours and Flexeril 10 mg 3 times a day, he denies any side effects of the medication he denies any excessive drowsiness or sleepiness and he reported the current medication it's helping to some degree, he denies any fever or night sweats, he denies any change in the bowel movements or urination Past Medical History Past Medical History: Hypertension Additional Past Medical History / Comment(s): degenerative disc in back, diverticulosis. POS BLOOD IN STOOL. History of Any Multi-Drug Resistant Organisms: C-DIFF Year Discovered:: 2008 MDRO Source:: stool Past Surgical History: Bowel Resection Additional Past Surgical History / Comment(s): COLONOSCOPY; 10 inches of colon removed from diverticulosis., pt had scrotal lump removed Past Anesthesia/Blood Transfusion Reactions: No Reported Reaction Smoking Status: Current every day smoker - Past Family History Mother Family Medical History: Congestive Heart Failure (CHF) Medications and Allergies Home Medications Medication Instructions Recorded Confirmed Type Cyclobenzaprine [Flexeril] 10 mg PO TID 11/01/17 04/01/18 History Ibuprofen [Motrin Ib] 600 mg PO Q6HR 12/11/17 04/01/18 History lamoTRIgine [LaMICtal] 100 mg PO DAILY 12/11/17 04/01/18 History Sertraline [Zoloft] 150 mg PO DAILY 03/22/18 04/01/18 History traMADol HCL [Ultram] 50 mg PO Q6H 03/22/18 04/01/18 History Allergies Allergy/AdvReac Type Severity Reaction Status Date / Time clonidine [From Catapres] AdvReac Vomiting Verified 03/28/18 11:16 Physical Exam Vitals: Vital Signs Pulse Resp BP 04/01/18 13:12 64 16 164/111 Social history :smoker , NO ETOH , NO Illegal drugs use . Review of Systems : - Constitutional : no chills , no fever , no night sweats , - Ears : no ear discharge , no change in hearing -Nose, Mouth ,Throat ; no bleeding gums, no sore throat , no epistaxis , -Cardiovascular : Denies chest pain, , no orthopnea , no palpitation -Respiratory : Denies cough , no dyspnea , no hemoptysis -Gastrointestinal :, no change in bowel habits , no coffee- ground emesis . -Genitourinary : No hematuria , no discharge , no incontinence, -Musculoskeletal : No gait dysfunction , report neck pain , left shoulder pain - Neurological : no ataxia , no tremor , no sezure , -Psychatric , no suicidal ideation no hallucination - Endocrine : no cold intolerence , no polyuria , no polydypsia , -Hematologic : no easy bleeding , no easy brusing , -Allergic / immunology : no angioedema , no wheezing ,no allergic rhinitis -Integumentary : no brttle nails , no change hair / nails , no foot/leg ulcers . Physical Examinations : -Constitutional : Cooperative , not in acute distress . -HEENT : nech ; supple , no Lymphadenopathy , no Thyromegaly , :eyes , no icterus, no photophobia . - Respiratory : Chest clear to auscultations Bilaterally , no wheezing - Cardiovascular : regular rate and rhythem , S1 , S2 , no S3 , no S4. - Gastrointestinal: abdomen soft no tenderness , no organomegally . - Genitourinary : Defferred . -Integumentary : No cellulitis , no ulcers , normal skin turgor , no cyanotic . - neurologic : Cranial nerve II to XII intact , no focal neurological deffecit -psychatric : alert , oriented X 3 , appropriate affect , intact judgment and insight . -Lymphatic : no Lymphadenopathy. - musculoskeltal: Cervical Spine motor stregnth in the deltoid and biceps, normal right side , normal Left side motor stregnth biceps and the wrist extensors normal right side ,normal left side . motor stregnth in the triceps muscle . normal Right side , normal Left side deep tendon reflexes normal at the biceps , normal at Brachioradialis , normal at triceps. Spurling test = positive Neck distraction test= positive Beckham sign= positive positive cervical facet loading test . Trigger point on the left side cervical paravertebral muscles, left trapezius muscle, left rhomboid muscles Left shoulder exam= flexion and extension abduction and abduction of the left shoulder associated with severe pain Degrees abduction and abduction of the left shoulder Lumber spine moter stegnth lower extremities ,thigh and legs 5/5 Right side , 5/5 Left side Results Comments: MRI of the cervical spine= multilevel foraminal stenosis and multilevel degeneration and multileveles cervical spondylosis with facet hypertrophy. MRI of the left shoulder moderate acromioclavicular arthroplasty Hypertrophy and Joint Space Narrowing Assessment and Plan Plan: Assessment and plan= 1-cervical radiculopathy. 2-cervical spondylosis with cervical facet arthropathy. 3-myofascial pain syndrome cervical paravertebral muscles, trapezius/rhomboid muscles left side 4-left shoulder arthralgia. Patient could benefit from cervical epidural steroid injection under fluoroscopy guidance and the symptoms and does trigger point injections cervical trapezius and rhomboid muscle . Patient currently using Ultram 50 mg every 6 hours and Motrin, 600 mg every 8 hours, Flexeril 10 mg 3 times a day Patient had a good combination of the medication should continue the current medication, patient denies any side effects of the medication, and he is getting prescription refills from his primary care . Time with Patient: Greater than 30 PQRS Measure Charge Sheet Measure #130: Documentation of Current Meds in Medical Chart: Patient's medications documented in chart Measure #226: Tobacco Use: Screen & Cessation Intervention: Pt not a tobacco user Measure #111: Pneumonia Vaccination: Pneumococcal vaccine NOT administered or previously given Measure #47: Advance Care Plan: Advance care planning discussed & documented, pt chose/unable to give Measure #412: Opioid Treatment Agreement: No documentation of signed opioid treatment agreement Measure #408: Opioid Therapy Follow-up Evaluation: Patient had NO f/u eval minimum every 3 months during opioid therapy Measure #317: Preventitive Care & Scrn High Bld Press & F/U: Pre-hypertensive or hypertensive BP documented, pt will f/u with PCP Measure #128: Body Mass Index (BMI) Screening & Follow-up: BMI documented ABOVE normal parameters - f/u documented Measure #131: Pain Assessment & Follow-up: Pain positive & plan documented, Follow-up scheduled Measure #431: Unhealthy Alcohol Use Preventative Care & Scrn: Patient not identified as an unhealthy alcohol user PQRS Narrative: Smoking Status Current every day smoker Do You Want the Pneumonia No Vaccine AT THIS TIME? Blood Pressure 164/111 Pain Intensity [Neck] 7 Scale Used Numeric (1 - 10) Hx Alcohol Use (MH) No Home Medications: Ambulatory Orders Cyclobenzaprine [Flexeril] 10 mg PO TID 11/01/17 Ibuprofen [Motrin Ib] 600 mg PO Q6HR 12/11/17 lamoTRIgine [LaMICtal] 100 mg PO DAILY 12/11/17 Sertraline [Zoloft] 150 mg PO DAILY 03/22/18 traMADol HCL [Ultram] 50 mg PO Q6H 03/22/18
== END | disposition home or self-care (01) ==
LOC: PNWHC3 12:51
PROVIDERS: ATTEND Specialist
DX: G89.29 Other chronic pain (principal); M54.2 Cervicalgia; M25.512 Pain in left shoulder; M47.22 Other spondylosis with radiculopathy, cervical region; M46.82 Other specified inflammatory spondylopathies, cervical region; M79.18 Myalgia, other site; F17.200 Nicotine dependence, unspecified, uncomplicated; I10 Essential (primary) hypertension; Z79.891 Long term (current) use of opiate analgesic; Z79.1 Long term (current) use of non-steroidal anti-inflammatories (NSAID); Z79.899 Other long term (current) drug therapy; Z98.890 Other specified postprocedural states; Z88.8 Allergy status to other drugs, medicaments and biological substances
CPT/HCPCS: 99211

== ENCOUNTER 2018-04-09 09:22 | Day surgery (SDC) | payer MEDICARE, OTHER ==
[2018-04-07 15:05] VITALS: BMI 32.3
[2018-04-09 09:41] VITALS: TEMP 97
[2018-04-09] MEDS ORDERED: LIDOCAINE 1% 20 ML VIAL (10MG/ML) FOR IV START INTRADERMA ONE (09:41)
[2018-04-09] MEDS ORDERED: LACTATED RINGERS 1,000 ML IV ONE (09:41)
--- NOTE | 2018-04-09 10:29 | P.PCN ---
Date of Procedure: 04/09/18 Surgeon: Tenzin Harmon Description of Procedure: PREOPERATIVE DIAGNOSIS: Cervical radiculopathy Cervical degenerative disc disease POSTOPERATIVE DIAGNOSIS: Cervical radiculopathy Cervical degenerative disc disease PROCEDURE Cervical Epidural steroid injection under fluoroscopic guidance at the C7-T1 interspace. ANESTHESIA: Local with 1% lidocaine 3 ml and IV sedation with Versed 2 mg and 100 mg of fentanyl EBL: Minimal PROCEDURE INDICATION: The patient with cervical radicular symptoms unresponsive to conservative treatment. He presents today for cervical epidural steroid injection. He also presents for left trapezius trigger point injection. He has pain in his neck which radiates down his left arm into his hand.. PROCEDURE DESCRIPTION / TECHNIQUE: The patient was seen and identified in the preoperative area. Risks, benefits , complications including but not limited to infections ,bleeding ,allergic reaction to the medications ,nerve damage and incomplete pain relief, and alternatives were discussed with the patient. The patient agreed to proceed with the procedure and signed the consent. IV was started, and vital signs were stable. Patient was taken to the OR and time out was completed. The patient was placed in the prone position on procedure table and a pillow was placed under the chest area.. The cervical area was prepped and draped in the usual sterile fashion. Conscious sedation was used during the procedure to decrease patient s anxiety. Vital signs was monitered during the entire procedure. Using anterior-posterior fluoroscopy, the C7-T1 interlaminar space was identified and the skin over this site was marked and then infiltrated with 1% lidocaine subcutaneously. Subsequently, a 20-gauge Tuohy epidural needle was inserted and advanced toward the epidural space using the loss of resistance technique and guided by AP and lateral fluoroscopy. The correct needle position in the epidural space was verified with the injection of contrast and observing an excellent epidurogram with the epidural spread of the dye, after negative aspiration for blood and CSF and in the absence of paresthesias. Again after negative aspiration, a 4 ml mixture containing 80 mg of Depo-Medrol was injected. Needle was withdrawn intact, skin was cleansed, and bandages were applied. COMPLICATIONS: None DISPOSITION / PLANS: The patient was placed in a supine position and transferred to the recovery area in a stable condition for observation. There was no evidence of lower extremity motor or sensory deficit after the procedure. Patient was discharged from the recovery room after meeting discharge criteria. Home discharge instructions were given to the patient by the staff. The patient was reexamined prior to discharge. The patient will schedule a follow up cervical epidural steroid injection on an as-needed basis. Preoperative Diagnosis: myofascial pain syndrome of left trapezius Postoperative diagnosis: Same Anesthesia: Local Surgeon: Tenzin Harmon MD Indications for procedure: This is a patient with myofascial pain and palpable trigger points in left trapezius muscles. The patient consents for an injection after an explanation of risks including but not limited to bleeding and infection, benefits, and alternatives and the patient has signed a consent form indicating understanding of all of them. Description of procedure: After informed consent was obtained the patient's back was sterilely prepped in the usual fashion with ChloraPrep. 2 trigger points were identified via palpation of the indicated muscles and marked sterilely. Each trigger point was injected with a 25-gauge half inch needle, with 1 mL of solution consisting of 1% lidocaine The patient's vital signs were stable afterwards and the procedure was tolerated well. Patient was discharged home with follow-up instructions.
[2018-04-09] MEDS ORDERED: IV FLUID CONTINUATION 1,000 ML IV ONE ×2 (10:44)
[2018-04-09 11:16] VITALS: BP 130/82; PULSE 77; RESP 18
--- NOTE | 2018-04-09 11:50 | FL ---
Fluoroscopy INDICATION: Pain FINDINGS: Fluoroscopy time: 1 seconds. Images obtained: 1. IMPRESSIONS: 1. Documentation of fluoroscopy.
== END 2018-04-09 11:20 | disposition home or self-care (01) ==
LOC: ORPAIN 09:22
PROVIDERS: ATTEND Pain Medicine Pain Medicine
DX: G89.29 Other chronic pain (principal); M50.10 Cervical disc disorder with radiculopathy, unspecified cervical region; M79.18 Myalgia, other site; I10 Essential (primary) hypertension; F17.200 Nicotine dependence, unspecified, uncomplicated; Z79.899 Other long term (current) drug therapy; Z79.1 Long term (current) use of non-steroidal anti-inflammatories (NSAID); Z79.891 Long term (current) use of opiate analgesic; Z82.49 Family history of ischemic heart disease and other diseases of the circulatory system; Z88.8 Allergy status to other drugs, medicaments and biological substances; M47.22 Other spondylosis with radiculopathy, cervical region
CPT/HCPCS: 62321; 20552; J2250; J1030; J3010

== ENCOUNTER → 2018-04-10 | Outpatient (CLI) | payer MEDICARE, OTHER ==
[2018-04-10 14:18] LABS: Basophils # (A) 0.1 k/uL (0-0.2); Basophils % (A) 1 %; Eosinophils # (A) 0.2 k/uL (0-0.7); Eosinophils % (A) 2 %; HCT 45.4 % (39.0-53.0); HGB 14.1 gm/dL (13.0-17.5); Lymphocytes # (A) 2.2 k/uL (1.0-4.8); Lymphocytes % (A) 22 %; MCH 26.8 pg (25.0-35.0); MCV 86.4 fL (80.0-100.0); Mean Platelet Volume 6.1; Monocytes # (A) 0.6 k/uL (0-1.0); Monocytes % (A) 6 %; Neutrophils % (A) 67 %; Platelet Count 310 k/uL (150-450); RBC 5.25 m/uL (4.30-5.90); RDW 13.7 % (11.5-15.5); WBC 10.4 k/uL (3.8-10.6)
[2018-04-10 14:32] LABS: Potassium 4.6 mmol/L (3.5-5.1)
== END | disposition home or self-care (01) ==
LOC: LABPAT 13:22
PROVIDERS: ATTEND Orthopaedic Surgery
DX: Z01.812 Encounter for preprocedural laboratory examination (principal); M75.42 Impingement syndrome of left shoulder
CPT/HCPCS: 36415; 80051; 85025

== ENCOUNTER 2018-05-01 07:45 | Day surgery (SDC) | payer MEDICARE, OTHER ==
[2018-04-24 15:10] VITALS: BMI 32.3
--- NOTE | 2018-04-30 12:59 | HP ---
HISTORY AND PHYSICAL DATE OF SERVICE: 05/01/2018 Medardo Galan is a 52-year-old patient seen with progressive left shoulder pain. We discussed treatment options. He elected to proceed with arthroscopy. Consent regarding the procedure was obtained. PAST MEDICAL HISTORY: Depression. PAST SURGICAL HISTORY: Bowel resection, laminectomy. DAILY MEDICATIONS: 1. Buspirone. 2. Zoloft. ALLERGIES: CATAPRES. SOCIAL HISTORY: Smokes 1 pack of cigarettes daily. PHYSICAL EXAMINATION OF THE LEFT SHOULDER: Flexion is 90 degrees, abduction is 90 degrees. External rotation is 25 degrees with pain and weakness. There is tenderness along the anterolateral acromion rotator cuff insertion site. Impingement signs positive at 80 degrees. Drop-arm sign is positive. Distal neurovascular exam is intact. RADIOGRAPHS OF THE LEFT SHOULDER: Revealed a type 2 anterior acromion and cystic changes of the greater tuberosity as well as the acromioclavicular joint osteoarthritis of the left shoulder. MRI revealed rotator cuff tear, osteoarthritic changes and biceps tendinitis. IMPRESSION: 1. Left shoulder impingement with rotator cuff tear. 2. Left shoulder acromioclavicular joint osteoarthritis. 3. Left shoulder bicipital tendinitis. PLAN: Left shoulder arthroscopy with subacromial decompression, arthroscopic rotator cuff repair, probable Alyse procedure and debridement. MMODL / IJN: [id number] /
[~2018-05-01 07:45] MED LIST changes: +LIDOCAINE 1% 20 ML VIAL (10MG/ML) FOR IV START INTRADERMA PRN; -MIDAZOLAM 2 MG/2 ML VIAL IV PRN; -ceFAZolin 1,000 MG in DEXTROSE/WATER 1 50ML.BAG IVPB ONE; +ceFAZolin IN SWFI 2 GM/20 ML SYRINGE IVP ONE
[2018-05-01] MEDS ORDERED: LACTATED RINGERS 1,000 ML IV ONE (08:30)
[2018-05-01] MEDS ORDERED: fentaNYL (PF) 50 MCG/ML 2 ML AMP IVP ONE (08:56)
[2018-05-01] MEDS ORDERED: MIDAZOLAM 2 MG/2 ML VIAL IVP ONE (08:56)
[2018-05-01] MEDS ORDERED: ROPIVACAINE 5 MG/ML 30 ML VIAL ONE (09:24)
[2018-05-01] MEDS ORDERED: SUCCINYLCHOLINE CHLORIDE 100 MG/5 ML SYR IV ONE (09:24)
[2018-05-01] MEDS ORDERED: PROPOFOL 10 MG/ML 20 ML VIAL IV ONE (09:24)
[2018-05-01] MEDS ORDERED: fentaNYL (PF) 50 MCG/ML 2 ML AMP ONE (09:24)
[2018-05-01] MEDS ORDERED: LIDOCAINE 1% INJ 10MG/ML (20 ML MDV) ONE (09:24)
[2018-05-01] MEDS ORDERED: MIDAZOLAM 2 MG/2 ML VIAL ONE (09:24)
--- NOTE | 2018-05-01 10:15 | P.ONQ ---
Anesthesiology Proc Note - PNB - Peripheral Nerve Block Performed Left Interscalene Single Time Out Performed: Yes Procedure Start Time: 08:55 Indication: Acute Post-Operative Pain Sedation Type: Sedate with meaningful contact maintained Preparation: Sterile Prep Position: Supine Catheter: None Needle Types: Other (see comment) (Russell) Needle Size: 50mm (2") Needle Gauge: 21 Technique: Ultrasound Injectate: 0.5% Ropivacaine (see comment for volume) (20cc) Blood Aspirated: No Pain Paresthesia on Injection Noted: No Resistance on Injection: Normal Events: Uneventful and Well Tolerated
--- NOTE | 2018-05-01 10:57 | P.OP ---
Date of Procedure: 05/01/18 Preoperative Diagnosis: Left shoulder impingement Postoperative Diagnosis: 1. Left shoulder rotator cuff tear 2. Left shoulder impingement 3. Left shoulder acromioclavicular joint osteoarthritis 4. Left shoulder partial long head biceps tendon tear 5. Left shoulder superficial labral tear Procedure(s) Performed: 1. Left shoulder arthroscopic rotator cuff repair 2. Left shoulder arthroscopic subacromial decompression 3. Left shoulder arthroscopic Alyse procedure 4. Left shoulder arthroscopic biceps tenotomy 5. Left shoulder arthroscopic debridement labral tear Implants: 15.5 Arthrex swivel lock anchor Anesthesia: GETA, regional (Interscalene block) Surgeon: Jayjay Ortega Estimated Blood Loss (ml): 7 Pathology: none sent Condition: stable Disposition: PACU Indications for Procedure: 52-year-old patient seen with progressive left shoulder pain. After having treatment options discussed, he elected to proceed with arthroscopy. Operative Findings: See description of procedure Description of Procedure: Patient underwent an interscalene block by department of anesthesia for postoperative pain management. The patient was then taken to the operative suite. The patient underwent a general anesthetic by the department of anesthesia. The patient was placed into a lateral position and secured. There was appropriate padding of the bony prominence. Left shoulder was then prepped and draped in normal sterile orthopedic fashion. We placed the extremity in 10 pounds of longitudinal traction. A posterior incision was now made for a posterior working portal site. The trocar and cannula were inserted into the glenohumeral joint. Arthroscopy was initiated. Spinal needle was now inserted anteriorly, to ascertain the anterior working portal site. An incision was now made in that area, a trocar was inserted followed by a probe. There was superficial tearing of the anterior labrum. Partial tearing and hyperemia of the long head biceps tendon. Mild grade 1 chondromalacia changes of the glenoid. I performed an arthroscopic biceps tenotomy. I debrided the superficial labral tears down to stable tissue. The residual labrum was found to be stable. Utilizing the posterior working portal site, the trocar and cannula were inserted into the subacromial space. Arthroscopy initiated. I made an incision 2 fingerbreadths lateral to the acromion. I introduced my trocar followed by my ArthroCare ablator. I now began ablating thick subacromial bursal tissue, which exposed the undersurface of the anterior acromion. There was diminished subacromial space. There was a very prominent anterior acromion. A motorized bur was introduced and a subacromial decompression was performed. I also excised some osteophytes off the inferior aspect of the distal clavicle. The AC joint was visualized and noted to be fairly arthritic. The motorized bur was introduced in the anterior portal site and a Alyse procedure was performed without difficulty, decompressing the AC joint nicely. I turned my attention to the rotator cuff. There was a 11.5 cm rotator cuff tear. I debrided the margins getting down to stable tendon tissue. I introduced my motorized bur and abraded the footprint area, getting some petechial bleeding. I passed 2 everted mattress sutures through good bites of rotator cuff tendon. I now repaired the tendon back to the footprint with one 5.5 Arthrex swivel lock anchor. All residual suture limbs were now clipped. We had good compression of the tendon along the entire footprint. I injected 1 mL Renue intra-articular. Instruments now removed from the portal sites. All portal sites were approximated with nylon suture. Sterile dressings were applied followed by a shoulder sling. The patient was awakened, transferred to a bed, and taken to recovery in stable condition.
[2018-05-01 11:04] VITALS: TEMP 97.3
[2018-05-01] MEDS: HYDROmorphone 0.5 MG/0.5 ML SYRINGE IVP PRN ×2 (11:25→11:30)
[2018-05-01 12:18] VITALS: RESP 16
[2018-05-01] MEDS ORDERED: HYDROcodone/APAP 7.5-325MG 1 EACH TAB PO ONE (12:53)
[2018-05-01 13:02] VITALS: BP 130/73; PULSE 103
== END 2018-05-01 13:36 | disposition home or self-care (01) ==
LOC: OR 07:45
PROVIDERS: ATTEND Orthopaedic Surgery
DX: M75.102 Unspecified rotator cuff tear or rupture of left shoulder, not specified as traumatic (principal); M75.42 Impingement syndrome of left shoulder; M75.22 Bicipital tendinitis, left shoulder; M19.012 Primary osteoarthritis, left shoulder; S43.492A Other sprain of left shoulder joint, initial encounter; M94.212 Chondromalacia, left shoulder; I10 Essential (primary) hypertension; M50.20 Other cervical disc displacement, unspecified cervical region; F32.9 Major depressive disorder, single episode, unspecified; F17.210 Nicotine dependence, cigarettes, uncomplicated; Z79.1 Long term (current) use of non-steroidal anti-inflammatories (NSAID); Z79.891 Long term (current) use of opiate analgesic; Z79.899 Other long term (current) drug therapy; Z88.8 Allergy status to other drugs, medicaments and biological substances
CPT/HCPCS: 64415; 29827; 29826; 29824; 29823; C1713; C1765; J2250; J1100; J2405; J2001; J3010; J2795; J0330; J2704; J1170; J0690

== ENCOUNTER 2018-06-04 07:43 | Day surgery (SDC) | payer MEDICARE, OTHER ==
[2018-05-29 12:22] VITALS: BMI 31.4
[2018-06-04 08:15] VITALS: RESP 16; TEMP 98.5
[2018-06-04] MEDS ORDERED: LACTATED RINGERS 1,000 ML IV ONE (08:22)
[2018-06-04] MEDS ORDERED: LIDOCAINE 1% 20 ML VIAL (10MG/ML) FOR IV START INTRADERMA ONE (08:22)
--- NOTE | 2018-06-04 09:04 | P.PCN ---
Date of Procedure: 06/04/18 Description of Procedure: PROCEDURE #1 1. Cervical epidural steroid injection under fluoroscopic guidance, C7-T1 2. Cervical epidurogram. PREOPERATIVE DIAGNOSIS: Cervical radiculopathy POSTOPERATIVE DIAGNOSIS: Cervical radiculopathy ANESTHESIA: Local anesthesia with 1% lidocaine and (IV conscious sedation ) PROCEDURE DESCRIPTION / TECHNIQUE: The patient was seen and identified in the preoperative area. Risks, benefits, complications, including but not limited to infections ,bleeding , allergic reactions to the medications,and incomplete pain relief. Risks, benefits, and alternatives were discused with the patient and the patient has consented to the procedure. Patient was taken to the OR and time out was completed. The patient was placed in the prone position on the procedure table. A pillow was placed under the patients chest to increase the cervical interlaminar space. The cervical area was prepped and draped in the usual sterile fashion. Vital signs were closely monitored during the procedure. Using anterior-posterior fluoroscopy, the C7-T1 interlaminar space was identified and the skin over this site was marked and then infiltrated with 1% lidocaine subcutaneously. Subsequently, a 20-gauge 3-1/2-inch Tuohy epidural needle was inserted and advanced toward the epidural space by means of the [id number] technique and guided by AP and lateral fluoroscopy. The correct needle position in the epidural space was verified with the injection of 1 mL of the water soluble contrast dye Isovue-180 and observing an excellent epidurogram with the epidural spread of the dye, after negative aspiration for blood and CSF and in the absence of paresthesias. Again after negative aspiration, a mixture containing 10 mg Dexamethasone and 2 ml of preservative- free normal saline injected and a washout of epidurogram was seen. Needle was withdrawn intact, skin was cleansed, and bandages were applied. Complications: none. Disposition: patient was placed in supine position and transferred to the recovery room area in stable condition and there was no evidence of upper or lower extremity motor or sensory deficit after the procedure patient was discharged from recovery room after discharge criteria met and home discharge instructions was given by the staff and patient will follow with the pain as directed. PROCEDURE #2: Left trapezius AND left cervical paraspinal muscle trigger point injection Chloroprep was used to cleanse the skin over the left trapezius and cervical paraspinal muscles. Trigger points are palpated. A 25-gauge needle was advanced into the trigger points. After negative aspiration 6 ML's of 0.5% ropivacaine with a total of 10 mg of dexamethasone was injected into both the trapezius muscle on the left cervical paraspinal muscles. Patient tolerated the procedure very well. Band-Aid was placed
[2018-06-04] MEDS ORDERED: IV FLUID CONTINUATION 1,000 ML IV ONE (09:05)
[2018-06-04 09:27] VITALS: BP 132/93; PULSE 87
--- NOTE | 2018-06-04 09:40 | FL ---
Fluoroscopy INDICATION: Pain FINDINGS: Fluoroscopy time: 2 seconds. Images obtained: 1. IMPRESSIONS: 1. Documentation of fluoroscopy.
== END 2018-06-04 09:35 | disposition home or self-care (01) ==
LOC: ORPAIN 07:43
PROVIDERS: ATTEND Hospitalist
DX: M54.12 Radiculopathy, cervical region (principal)
CPT/HCPCS: 20552; 62321; J2250; J1100; J3010; Q9966

== ENCOUNTER 2018-06-16 10:55 | Emergency (ER) | payer MEDICARE ==
[2018-06-16 10:59] VITALS: RESP 18
[2018-06-16] MEDS ORDERED: SODIUM CHLORIDE 0.9% 1,000 ML IV STA (11:06)
[2018-06-16] MEDS ORDERED: ONDANSETRON 4 MG/2 ML VIAL IVP STA ×2 (11:06→11:27)
[2018-06-16] MEDS ORDERED: MORPHINE SULFATE 4 MG/ML SYRINGE IVP STA (11:27)
--- NOTE | 2018-06-16 11:32 | ED ---
Abdominal Pain HPI - General Chief Complaint: Abdominal Pain Stated Complaint: nausea, abd pain Time Seen by Provider: 06/16/18 11:06 Source: patient, RN notes reviewed Mode of arrival: ambulatory Limitations: no limitations - History of Present Illness Initial Comments: This a 52 year old male presents emergency Department with chief complaint of left-sided abdominal pain. Patient states started on Saturday has progressively worse and was associated diarrhea, nausea no vomiting. Patient does have a history of diverticulitis with prior resection. Patient states that he said colonoscopy since his resection which shows evidence of diverticulosis. Patient denies fever, chills. Patient states that he generalized does not feel well denies any chest pain or shortness breath. - Related Data Home Medications Medication Instructions Recorded Confirmed Cyclobenzaprine [Flexeril] 10 mg PO TID 11/01/17 06/16/18 Ibuprofen [Motrin Ib] 800 mg PO Q6HR PRN 12/11/17 06/16/18 lamoTRIgine [LaMICtal] 150 mg PO DAILY 12/11/17 06/16/18 Sertraline [Zoloft] 150 mg PO DAILY 03/22/18 06/16/18 traMADol HCL [Ultram] 50 mg PO Q6H 03/22/18 06/16/18 L.acidoph,Paracasei, B.lactis 1 cap PO DAILY 06/16/18 06/16/18 [Probiotic] Multivitamins, Thera [Multivitamin 1 tab PO DAILY 06/16/18 06/16/18 (formulary)] Previous Rx's Medication Instructions Recorded Ciprofloxacin HCl [Cipro] 500 mg PO Q12HR #20 tablet 06/16/18 Hydrocodone/Acetaminophen [[place] 1 tab PO Q6HR PRN #12 tab 06/16/18 5-325] Ondansetron Odt [Zofran Odt] 4 mg PO Q8HR PRN #10 tab 06/16/18 metroNIDAZOLE [Flagyl] 500 mg PO TID #30 tab 06/16/18 Allergies Allergy/AdvReac Type Severity Reaction Status Date / Time clonidine [From Catapres] AdvReac Vomiting Verified 06/16/18 11:04 Review of Systems ROS Statement: Those systems with pertinent positive or pertinent negative responses have been documented in the HPI. ROS Other: All systems not noted in ROS Statement are negative. Past Medical History Past Medical History: Hypertension Additional Past Medical History / Comment(s): degenerative disc in back, diverticulosis. History of Any Multi-Drug Resistant Organisms: C-DIFF Date of last positivie culture/infection: 2008 MDRO Source:: stool Past Surgical History: Bowel Resection, Orthopedic Surgery Additional Past Surgical History / Comment(s): COLONOSCOPY; 10 inches of colon removed from diverticulosis., pt had scrotal lump removed, PAIN CLINIC PROCEDURE, left rotator cuff Past Anesthesia/Blood Transfusion Reactions: No Reported Reaction Past Psychological History: Anxiety, Bipolar, Depression Smoking Status: Current every day smoker Past Alcohol Use History: None Reported Past Drug Use History: None Reported - Past Family History Mother Family Medical History: Congestive Heart Failure (CHF) General Exam Limitations: no limitations General appearance: alert, in no apparent distress Head exam: Present: atraumatic, normocephalic, normal inspection Eye exam: Present: normal appearance, PERRL, EOMI. Absent: scleral icterus, conjunctival injection, periorbital swelling Neck exam: Present: normal inspection. Absent: tenderness, meningismus, lymphadenopathy Respiratory exam: Present: normal lung sounds bilaterally. Absent: respiratory distress, wheezes, rales, rhonchi, stridor Cardiovascular Exam: Present: regular rate, normal rhythm, normal heart sounds. Absent: systolic murmur, diastolic murmur, rubs, gallop, clicks GI/Abdominal exam: Present: soft, tenderness (Moderate left lower quadrant), normal bowel sounds. Absent: distended, guarding, rebound, rigid Back exam: Absent: CVA tenderness (R), CVA tenderness (L) Course Vital Signs 06/16/18 06/16/18 10:57 13:01 Temperature 97.5 F L Pulse Rate 94 82 Respiratory 18 Rate Blood Pressure 149/102 143/94 O2 Sat by Pulse 98 98 Oximetry Medical Decision Making - Medical Decision Making 52-year-old male presents emergency Department for left-sided abdominal pain CT shows uncomplicated diverticulitis. Patient treated with Cipro Flagyl. He is tolerating oral intake at this time. Patient is afebrile and no leukocytosis. - Lab Data Result diagrams: 06/16/18 11:45 06/16/18 11:45 Lab Results 06/16/18 06/16/18 06/16/18 Range/Units 11:45 11:45 11:45 WBC 9.4 (3.8-10.6) k/uL RBC 5.06 (4.30-5.90) m/uL Hgb 14.3 (13.0-17.5) gm/dL Hct 43.0 (39.0-53.0) % MCV 84.9 (80.0-100.0) fL MCH 28.2 (25.0-35.0) pg MCHC 33.2 (31.0-37.0) g/dL RDW 14.4 (11.5-15.5) % Plt Count 295 (150-450) k/uL Neutrophils % 70 % Lymphocytes % 20 % Monocytes % 5 % Eosinophils % 2 % Basophils % 1 % Neutrophils # 6.6 (1.3-7.7) k/uL Lymphocytes # 1.9 (1.0-4.8) k/uL Monocytes # 0.4 (0-1.0) k/uL Eosinophils # 0.2 (0-0.7) k/uL Basophils # 0.1 (0-0.2) k/uL Sodium 139 (137-145) mmol/L Potassium 4.1 (3.5-5.1) mmol/L Chloride 103 (98-107) mmol/L Carbon Dioxide 29 (22-30) mmol/L Anion Gap 7 mmol/L BUN 8 L (9-20) mg/dL Creatinine 0.97 (0.66-1.25) mg/dL Est GFR (CKD-EPI)AfAm >90 (>60 ml/min/1.73 sqM) Est GFR (CKD-EPI)NonAf >90 (>60 ml/min/1.73 sqM) Glucose 106 H (74-99) mg/dL Plasma Lactic Acid David 2.1 H* (0.7-2.0) mmol/L Calcium 10.0 (8.4-10.2) mg/dL Total Bilirubin 0.7 (0.2-1.3) mg/dL AST 29 (17-59) U/L ALT 42 (21-72) U/L Alkaline Phosphatase 65 (38-126) U/L Total Protein 7.0 (6.3-8.2) g/dL Albumin 4.4 (3.5-5.0) g/dL Amylase 60 (30-110) U/L Lipase 36 (23-300) U/L Disposition Clinical Impression: Diverticulitis Disposition: HOME SELF-CARE Condition: Stable Instructions (If sedation given, give patient instructions): Diverticulitis Diet (ED), Diverticulitis (ED) Additional Instructions: Please return to the Emergency Department if symptoms worsen or any other concerns. Prescriptions: Ciprofloxacin HCl [Cipro] 500 mg PO Q12HR #20 tablet metroNIDAZOLE [Flagyl] 500 mg PO TID #30 tab Hydrocodone/Acetaminophen [[place] 5-325] 1 tab PO Q6HR PRN #12 tab PRN Reason: Pain Ondansetron Odt [Zofran Odt] 4 mg PO Q8HR PRN #10 tab PRN Reason: Nausea Is patient prescribed a controlled substance at d/c from ED?: Yes When asked, does pt state using other controlled substances?: No If prescribed controlled substance>3 days was MAPS reviewed?: Prescribed <3 Days If opioid is for acute pain is fill amount 7 days or less?: Yes If Rx opioid, was Start Talking consent form obtained?: Yes Referrals: Florencio Goodman MD [Primary Care Provider] - 1-2 days Time of Disposition: 13:25
[2018-06-16 12:15] LABS: Basophils # (A) 0.1 k/uL (0-0.2); Basophils % (A) 1 %; Eosinophils # (A) 0.2 k/uL (0-0.7); Eosinophils % (A) 2 %; HGB 14.3 gm/dL (13.0-17.5); Lymphocytes # (A) 1.9 k/uL (1.0-4.8); Lymphocytes % (A) 20 %; MCH 28.2 pg (25.0-35.0); MCHC 33.2 g/dL (31.0-37.0); MCV 84.9 fL (80.0-100.0); Mean Platelet Volume 6.3; Monocytes # (A) 0.4 k/uL (0-1.0); Monocytes % (A) 5 %; Neutrophils # (A) 6.6 k/uL (1.3-7.7); Neutrophils % (A) 70 %; Platelet Count 295 k/uL (150-450); RBC 5.06 m/uL (4.30-5.90); RDW 14.4 % (11.5-15.5); WBC 9.4 k/uL (3.8-10.6)
[2018-06-16 12:16] LABS: ALT 42 U/L (21-72); AST 29 U/L (17-59); Albumin 4.4 g/dL (3.5-5.0); Alkaline Phosphatase 65 U/L (38-126); Amylase 60 U/L (30-110); Anion Gap 7 mmol/L; Blood Urea Nitrogen 8 mg/dL (9-20); Carbon Dioxide 29 mmol/L (22-30); Chloride 103 mmol/L (98-107); Glucose 106 mg/dL (74-99); Lipase 36 U/L (23-300); Potassium 4.1 mmol/L (3.5-5.1); Sodium 139 mmol/L (137-145); Total Bilirubin 0.7 mg/dL (0.2-1.3)
[2018-06-16] MEDS ORDERED: HYDROmorphone 1 MG/ML 1 ML SYRINGE IVP STA (12:48)
--- NOTE | 2018-06-16 12:59 | CT ---
EXAMINATION TYPE: CT abdomen pelvis w con DATE OF EXAM: 06/16/2018 COMPARISON: 09/27/2017 HISTORY: Left lower quadrant pain, history of diverticulitis CT DLP: 1095.4 mGycm Automated exposure control for dose reduction was used. TECHNIQUE: Helical acquisition of images was performed from the lung bases through the pelvis. CONTRAST: Performed without Oral Contrast and with IV Contrast, patient injected with 100 mL of Isovue 300. FINDINGS: LUNG BASES: There is minimal dependent bibasilar subsegmental atelectasis. LIVER/GB: Hepatic parenchyma is diffusely hypoattenuated in comparison to that of the spleen, most co mmonly seen in hepatic steatosis. This finding limits evaluation for hepatic masses. There is a too s mall to accurately characterize hepatic lesion within segment 8 measuring 6 mm on image 16. No intrah epatic biliary ductal dilatation. No cholelithiasis PANCREAS: There is slight pancreatic ductal prominence without discrete dilatation. SPLEEN: No significant abnormality is seen. ADRENALS: No significant abnormality is seen. KIDNEYS: Kidneys enhance and excrete symmetrically without hydronephrosis. Circumaortic left renal ve in is incidentally noted. FREE AIR: No free air is visualized. ADENOPATHY: No greater than 1 cm short axis lymph node is seen in the abdomen or pelvis. REPRODUCTIVE ORGANS: Prostate gland is heterogenous containing central zone calcifications. URINARY BLADDER: No significant abnormality is seen. OSSEOUS STRUCTURES: No significant abnormality is seen. BOWEL: Descending duodenal diverticulum is incidentally noted. There is mild inflammatory fat strand ing surrounding the descending colon and sigmoid junction around multiple diverticula. No pericolic a bscess or free air. Sigmoid anastomotic site is seen without proximal dilatation to suggest stricture . There is diastases recti with abutting loops of nondilated small bowel in a very small fat filled p eriumbilical hernia. Overall no dilated large or small bowel. Appendix is retrocecal and air-filled, within normal limits. OTHER: Moderate atherosclerosis is seen of the abdominal aorta and its branches. IMPRESSION: ACUTE UNCOMPLICATED COLONIC DIVERTICULOSIS AT THE DISTAL DESCENDING COLON AND SIGMOID JUNCTION.
[2018-06-16 13:42] VITALS: BP 130/90; PULSE 78; TEMP 98
== END 2018-06-16 13:43 | disposition home or self-care (01) ==
LOC: EC 10:55
DX: K57.32 Diverticulitis of large intestine without perforation or abscess without bleeding (principal); F41.9 Anxiety disorder, unspecified; F31.9 Bipolar disorder, unspecified; F17.200 Nicotine dependence, unspecified, uncomplicated; Z79.899 Other long term (current) drug therapy; Z88.8 Allergy status to other drugs, medicaments and biological substances
CPT/HCPCS: 36415; 80053; 82150; 83605; 83690; 85025; 74177; 99284; 96374; 96375 ×2; 96361 ×2; J2270; J2405; J1170; Q9967

== ENCOUNTER → 2018-06-18 | Outpatient (CLI) | payer MEDICARE ==
--- NOTE | 2018-06-18 13:36 | XR ---
EXAMINATION TYPE: XR chest 2V DATE OF EXAM: 06/18/2018 COMPARISON: 05/07/2017 HISTORY: Shortness of breath TECHNIQUE: Frontal and lateral views of the chest are obtained. FINDINGS: Scattered senescent parenchymal changes noted. Hyperinflation compatible with COPD. No evidence for infiltrate. No evidence for atelectasis. Heart size is stable. Mediastinal structures are stable and grossly unremarkable. No evidence for hilar prominence. Degenerative changes dorsal spine. IMPRESSION: 1. No evidence for acute pulmonary disease.
== END | disposition home or self-care (01) ==
LOC: RADXRMAIN 13:02
PROVIDERS: ATTEND Family Medicine
DX: J44.9 Chronic obstructive pulmonary disease, unspecified (principal)
CPT/HCPCS: 71046

== ENCOUNTER → 2018-07-02 | Outpatient (CLI) | payer MEDICARE, OTHER ==
[2018-07-02 13:51] VITALS: BP 139/91; PULSE 76; RESP 18
--- NOTE | 2018-07-02 22:12 | P.PAINPG ---
Subjective Progress Note Date: 07/02/18 This is 52 years old male with a chronic history of severe neck pain, diagnosed with cervical radiculopathy and cervical spondylosis with cervical facet arthropathy, recently we have done cervical epidural steroid injections 2, he reported he had few days improvement of his neck pain after each injection, he continued to have severe neck pain increases with any neck movement, he denies any change in bowel movement or urination. Denies any motor or sensory deficit to continue to use Ultram 50 mg every 6 hours when necessary Motrin 800 mg 3 times a day and Flexeril 10 mg daily he denies any side effect of the medication Objective - Vital Signs Vital signs: Vital Signs Temp Pulse 76 07/02/18 13:42 Resp 18 07/02/18 13:42 BP 139/91 07/02/18 13:42 Pulse Ox 99 07/02/18 13:42 Intake & Output 07/02/18 07/02/18 07/03/18 06:59 18:59 06:59 Weight 90.718 kg - Exam Physical Examinations : -Constitutiona : Cooperative , not in acute distress . -HEENT : nech ; supple , no Lymphadenopathy , normal thyroid size . eyes : no ptosis , no icterus, no photophobia . ENT : normal of hearing , normal oropharynx , no Thrush . - Respiratory : Chest clear to auscultations Bilaterally , no wheezing , no Rhonchi . - Cardiovascula : regular rate and rhythem , S1 , S2 , no S3 , no S4. - Gastrointestina : abdomen soft no tenderness , bowel sounds , no organomegally . - Genitourinary : Defferred . - neurologic : Cranial nerve II to XII intact , no focal neurological deffecit . -psychatric : alert , oriented X 3 , appropriate affect , intact judgment and insight . -Lymphatic : no Lymphadenopathy . - musculoskeltal : Cervical Spine motor stregnth in the deltoid and biceps, normal right side , normal Left side motor stregnth biceps and the wrist extensors normal right side ,normal left side . motor stregnth in the triceps muscle . normal Right side , normal Left side deep tendon reflexes normal at the biceps , normal at Brachioradialis , normal at triceps. cervical facet loading test positive on the left side only. Lumber spine moter stegnth lower extremities ,thigh and legs 5/5 Right side , 5/5 Left side . Assessment and Plan Plan: Assessment and plan=1-cervical radiculopathy. 2-cervical spondylosis with cervical facet arthropathy without myelopathy. ( left side ) Patient had no benefit after cervical epidural steroid injections 2 Patient will be good candidate to have diagnostic medial branch block cervical area left side C34/C45/C56 and possible RFA Time with Patient: Less than 30 PQRS Measure Charge Sheet Measure #130: Documentation of Current Meds in Medical Chart: Patient's medications documented in chart Measure #226: Tobacco Use: Screen & Cessation Intervention: Pt screened for tobacco use AND intervention given Measure #111: Pneumonia Vaccination: Pneumococcal vaccine NOT administered or previously given Measure #47: Advance Care Plan: Advance care planning discussed & documented, pt chose/unable to give Measure #412: Opioid Treatment Agreement: No documentation of signed opioid treatment agreement Measure #408: Opioid Therapy Follow-up Evaluation: Patient had NO f/u eval minimum every 3 months during opioid therapy Measure #317: Preventitive Care & Scrn High Bld Press & F/U: Normal blood pressure, f/u not required Measure #128: Body Mass Index (BMI) Screening & Follow-up: BMI documented ABOVE normal parameters - f/u documented Measure #131: Pain Assessment & Follow-up: Pain positive & plan documented, Follow-up scheduled Measure #431: Unhealthy Alcohol Use Preventative Care & Scrn: Patient not identified as an unhealthy alcohol user PQRS Narrative: Smoking Status Current every day smoker Do You Want the Pneumonia No Vaccine AT THIS TIME? Blood Pressure 139/91 Pain Intensity [Left Lower 6 Neck] Hx Alcohol Use (MH) No Home Medications: Ambulatory Orders Cyclobenzaprine [Flexeril] 10 mg PO TID 11/01/17 Ibuprofen [Motrin Ib] 800 mg PO Q6HR PRN 12/11/17 lamoTRIgine [LaMICtal] 150 mg PO DAILY 12/11/17 Sertraline [Zoloft] 150 mg PO DAILY 03/22/18 traMADol HCL [Ultram] 50 mg PO Q6H 03/22/18 L.acidoph,Paracasei, B.lactis [Probiotic] 1 cap PO DAILY 06/16/18 Multivitamins, Thera [Multivitamin (formulary)] 1 tab PO DAILY 06/16/18 Ondansetron Odt [Zofran Odt] 4 mg PO Q8HR PRN #10 tab 06/16/18 Controlled Substance Measures - Controlled Substance Measures Is patient prescribed a controlled substance at discharge?: No
== END ==
LOC: PNWHC3 13:12
PROVIDERS: ATTEND Specialist
DX: M47.22 Other spondylosis with radiculopathy, cervical region (principal); M46.96 Unspecified inflammatory spondylopathy, lumbar region; F17.200 Nicotine dependence, unspecified, uncomplicated; Z79.899 Other long term (current) drug therapy; Z79.1 Long term (current) use of non-steroidal anti-inflammatories (NSAID)
CPT/HCPCS: 99211

== ENCOUNTER 2018-07-09 03:06 | Emergency (ER) | payer MEDICARE, OTHER ==
[2018-07-09 03:25] VITALS: BP 155/98; PULSE 75; RESP 20; TEMP 98.2
[2018-07-09] MEDS ORDERED: SODIUM CHLORIDE 0.9% 1,000 ML IV STA (03:56)
[2018-07-09 04:17] LABS: Basophils % (A) 0 %; Eosinophils # (A) 0.4 k/uL (0-0.7); Eosinophils % (A) 4 %; HCT 43.9 % (39.0-53.0); HGB 13.9 gm/dL (13.0-17.5); Lymphocytes # (A) 2.8 k/uL (1.0-4.8); Lymphocytes % (A) 29 %; MCH 27.5 pg (25.0-35.0); MCHC 31.8 g/dL (31.0-37.0); MCV 86.5 fL (80.0-100.0); Mean Platelet Volume 6.8; Monocytes # (A) 0.6 k/uL (0-1.0); Monocytes % (A) 6 %; Neutrophils # (A) 5.8 k/uL (1.3-7.7); Neutrophils % (A) 59 %; Platelet Count 335 k/uL (150-450); RBC 5.07 m/uL (4.30-5.90); WBC 9.8 k/uL (3.8-10.6)
[2018-07-09 04:29] LABS: ALT 25 U/L (21-72); AST 25 U/L (17-59); Albumin 4.3 g/dL (3.5-5.0); Alkaline Phosphatase 56 U/L (38-126); Anion Gap 8 mmol/L; Blood Urea Nitrogen 8 mg/dL (9-20); Calcium 9.7 mg/dL (8.4-10.2); Carbon Dioxide 26 mmol/L (22-30); Chloride 109 mmol/L (98-107); Glucose 99 mg/dL (74-99); Lipase 89 U/L (23-300); Potassium 3.9 mmol/L (3.5-5.1); Sodium 143 mmol/L (137-145); Total Bilirubin 0.4 mg/dL (0.2-1.3); Total Protein 7.2 g/dL (6.3-8.2)
[2018-07-09] MEDS ORDERED: ONDANSETRON 4 MG/2 ML VIAL IVP STA (04:39)
[2018-07-09] MEDS ORDERED: MORPHINE SULFATE 4 MG/ML SYRINGE IVP STA (04:39)
--- NOTE | 2018-07-09 04:45 | ED ---
Abdominal Pain HPI - General Chief Complaint: Abdominal Pain Stated Complaint: Abd Pain,Nausea Time Seen by Provider: 07/09/18 03:56 Source: patient Mode of arrival: ambulatory Limitations: no limitations - History of Present Illness Initial Comments: Doses a 52-year-old male with a history of recurrent diverticulitis for which she has had approximately 10 inches of his bowel removed in the past. Patient reports that he had a bout of diverticulitis approximately a month ago and was prescribed antibiotics. He reports that since that time he's continued to have loose stools having 4-5 stools daily. Patient reports he does have a distant history of C. diff this diarrhea is not nearly as bad and doesn't have the same distinct smell. Patient reports that over the past 2 days she's had worsening pain in his left lower quadrant radiating to the groin consistent with previous episodes of diverticulitis. Patient reports he didn't want to wait until he got very bad so he came in for evaluation. Since his last colonoscopy was approximately a year ago by Dr. Pichardo and had diverticula at that time. - Related Data Home Medications Medication Instructions Recorded Confirmed Cyclobenzaprine [Flexeril] 10 mg PO TID 11/01/17 07/09/18 Ibuprofen [Motrin Ib] 800 mg PO Q6HR PRN 12/11/17 07/09/18 lamoTRIgine [LaMICtal] 150 mg PO DAILY 12/11/17 07/09/18 Sertraline [Zoloft] 150 mg PO DAILY 03/22/18 07/09/18 traMADol HCL [Ultram] 50 mg PO Q6H 03/22/18 07/09/18 L.acidoph,Paracasei, B.lactis 1 cap PO DAILY 06/16/18 07/09/18 [Probiotic] Multivitamins, Thera [Multivitamin 1 tab PO DAILY 06/16/18 07/09/18 (formulary)] Allergies Allergy/AdvReac Type Severity Reaction Status Date / Time clonidine [From Catapres] AdvReac Vomiting Verified 07/07/18 16:09 Review of Systems ROS Statement: Those systems with pertinent positive or pertinent negative responses have been documented in the HPI. ROS Other: All systems not noted in ROS Statement are negative. Past Medical History Past Medical History: Hypertension Additional Past Medical History / Comment(s): degenerative disc in back, diverticulosis. History of Any Multi-Drug Resistant Organisms: C-DIFF Date of last positivie culture/infection: 2008 MDRO Source:: stool Past Surgical History: Bowel Resection, Orthopedic Surgery Additional Past Surgical History / Comment(s): COLONOSCOPY; 10 inches of colon removed from diverticulosis., pt had scrotal lump removed, PAIN CLINIC PROCEDURE, left rotator cuff Past Anesthesia/Blood Transfusion Reactions: No Reported Reaction Past Psychological History: Anxiety, Bipolar, Depression Smoking Status: Current every day smoker - Past Family History Mother Family Medical History: Congestive Heart Failure (CHF) General Exam - General Exam Comments Initial Comments: Physical Exam GENERAL: Well-developed well-nourished well-hydrated gentleman who appears mildly uncomfortable HENT: Normocephalic, Atraumatic. EYES: PERRL, EOMI PULMONARY: Unlabored respirations. No audible rales rhonchi or wheezing was noted. CARDIOVASCULAR: There is a regular rate and rhythm without any murmurs gallops or rubs. ABDOMEN: Units to palpation left lower quadrant SKIN: Skin is clear with no lesions or rashes and otherwise unremarkable. : Deferred NEUROLOGIC: Patient is alert and oriented x3. Moving all extremities spontaneously MUSCULOSKELETAL: Normal extremities with adequate strength and full range of motion. No lower extremity swelling or edema. No calf tenderness. PSYCHIATRIC: Normal psychiatric evaluation Limitations: no limitations Course Vital Signs 07/09/18 03:22 Temperature 98.2 F Pulse Rate 75 Respiratory 20 Rate Blood Pressure 155/98 O2 Sat by Pulse 100 Oximetry Medical Decision Making - Medical Decision Making Patient was seen and evaluated History was obtained from patient and review of medical record Labs and imaging were ordered Concern for recurrent diverticulitis versus persistent diverticulitis possible abscess formation a computed tomography scan was ordered Zofran and morphine were ordered Patient reported only minimal improvement in discomfort with morphine, nausea improved with Zofran. Next and computed tomography scan was suggestive of gastroenteritis, no signs of diverticulitis. Labs were unremarkable. Results were discussed with the patient, patient has crampy abdominal pain I will give IM dose of Bentyl. At this time I feel the patient is stable for discharge home all questions pertaining care were answered return parameters were discussed patient discharged home in stable condition. - Lab Data Result diagrams: 07/09/18 04:00 07/09/18 04:00 Lab Results 07/09/18 07/09/18 Range/Units 04:00 04:00 WBC 9.8 (3.8-10.6) k/uL RBC 5.07 (4.30-5.90) m/uL Hgb 13.9 (13.0-17.5) gm/dL Hct 43.9 (39.0-53.0) % MCV 86.5 (80.0-100.0) fL MCH 27.5 (25.0-35.0) pg MCHC 31.8 (31.0-37.0) g/dL RDW 14.0 (11.5-15.5) % Plt Count 335 (150-450) k/uL Neutrophils % 59 % Lymphocytes % 29 % Monocytes % 6 % Eosinophils % 4 % Basophils % 0 % Neutrophils # 5.8 (1.3-7.7) k/uL Lymphocytes # 2.8 (1.0-4.8) k/uL Monocytes # 0.6 (0-1.0) k/uL Eosinophils # 0.4 (0-0.7) k/uL Basophils # 0.0 (0-0.2) k/uL Sodium 143 (137-145) mmol/L Potassium 3.9 (3.5-5.1) mmol/L Chloride 109 H (98-107) mmol/L Carbon Dioxide 26 (22-30) mmol/L Anion Gap 8 mmol/L BUN 8 L (9-20) mg/dL Creatinine 0.87 (0.66-1.25) mg/dL Est GFR (CKD-EPI)AfAm >90 (>60 ml/min/1.73 sqM) Est GFR (CKD-EPI)NonAf >90 (>60 ml/min/1.73 sqM) Glucose 99 (74-99) mg/dL Calcium 9.7 (8.4-10.2) mg/dL Total Bilirubin 0.4 (0.2-1.3) mg/dL AST 25 (17-59) U/L ALT 25 (21-72) U/L Alkaline Phosphatase 56 (38-126) U/L Total Protein 7.2 (6.3-8.2) g/dL Albumin 4.3 (3.5-5.0) g/dL Lipase 89 (23-300) U/L Disposition Clinical Impression: Gastroenteritis Disposition: HOME SELF-CARE Condition: Stable Instructions (If sedation given, give patient instructions): Gastroenteritis (ED) Is patient prescribed a controlled substance at d/c from ED?: No Referrals: Florencio Goodman MD [Primary Care Provider] - 1-2 days
--- NOTE | 2018-07-09 04:52 | XR ---
EXAM: XR Abdomen, 1 View CLINICAL HISTORY: ITS.REASON XR Reason: abdominal pain TECHNIQUE: Frontal supine view of the abdomen/pelvis. COMPARISON: No relevant prior studies available. FINDINGS: Gastrointestinal tract: Unremarkable. No dilation. Bones/joints: No acute fracture. No dislocation. IMPRESSION: Normal abdominal x-ray.
--- NOTE | 2018-07-09 05:40 | CT ---
EXAM: CT Abdomen and Pelvis With Intravenous Contrast CLINICAL HISTORY: ITS.REASON CT Reason: Pain LLQ, hx of diverticulitis 1 mo ago TECHNIQUE: Axial computed tomography images of the abdomen and pelvis with intravenous contrast. CTDI is 22 mGy and DLP is 1013 mGy-cm. This CT exam was performed using one or more of the following dose reduction techniques: automated exposure control, adjustment of the mA and/or kV according to patient size, and/or use of iterative reconstruction technique. COMPARISON: 06/16/18 CT abdomen FINDINGS: Lung bases: No mass. No consolidation. ABDOMEN: Liver: Steatosis. Gallbladder and bile ducts: Unremarkable. Pancreas: Unremarkable. Spleen: Unremarkable. Adrenals: Unremarkable. Kidneys and ureters: No hydronephrosis. Stomach and bowel: No bowel obstruction. Mildly fluid-filled jejunum. Colonic diverticulosis. PELVIS: Appendix: No evidence of appendicitis. Bladder: Unremarkable. Reproductive: Unremarkable. ABDOMEN and PELVIS: Intraperitoneal space: Unremarkable. Bones/joints: No acute fractures. Soft tissues: Unremarkable. Vasculature: No abdominal aortic aneurysm. Lymph nodes: No enlarged lymph nodes. IMPRESSION: Colonic diverticulosis without evidence of diverticulitis. Mildly fluid- filled jejunal loops in the left abdomen, correlate with gastroenteritis.
[2018-07-09] MEDS ORDERED: DICYCLOMINE 10 MG/ML 2 ML AMP IM STA (06:04)
== END 2018-07-09 07:22 | disposition home or self-care (01) ==
LOC: EC 03:06
DX: K52.9 Noninfective gastroenteritis and colitis, unspecified (principal); F31.9 Bipolar disorder, unspecified; F41.9 Anxiety disorder, unspecified; K57.30 Diverticulosis of large intestine without perforation or abscess without bleeding; F17.200 Nicotine dependence, unspecified, uncomplicated; Z79.899 Other long term (current) drug therapy; Z88.8 Allergy status to other drugs, medicaments and biological substances
CPT/HCPCS: 99284; 96374; 96375; 96361 ×2; 96372; 36415; 80053; 83690; 85025; 74018; 74177; J2270; J0500; J2405; Q9967

== ENCOUNTER 2018-07-10 07:11 | Day surgery (SDC) | payer MEDICARE, OTHER ==
[~2018-07-10 07:11] MED LIST changes: -DEXAMETHASONE SOD PHOSPHATE 10 MG/ML 1 ML VIAL IV ONE; -LIDOCAINE 1% 20 ML VIAL (10MG/ML) FOR IV START INTRADERMA PRN; -ONDANSETRON 4 MG/2 ML VIAL IVP ONE; -SCOPOLAMINE 1.5MG/72HR PATCH TRANSDERM ONE; -ceFAZolin IN SWFI 2 GM/20 ML SYRINGE IVP ONE
[2018-07-10 07:27] VITALS: RESP 16; TEMP 98.8
[2018-07-10] MEDS ORDERED: LIDOCAINE 1% 20 ML VIAL (10MG/ML) FOR IV START INTRADERMA ONE (07:30)
--- NOTE | 2018-07-10 08:37 | P.PCN ---
Date of Procedure: 07/10/18 Procedure(s) Performed: PREOPERATIVE DIAGNOSIS: 1-Cervical Spondylosis with Facet Arthropathy.without myelopathy. 2-cervical radiculopathy POSTOPERATIVE DIAGNOSIS: Same as preoperative diagnoses. PROCEDURES: Diagnostic , left C3-4, C4-5 , C5-6, medial branch blocks, with fluoroscopic guidance ANESTHESIA: Local with 1% lidocaine; moderate sedation with Versed. 3 mg , and fentanyl 100 micrograms EBL: Minimal PROCEDURE INDICATION: The patient with neck pain secondary to cervical arthropathy unresponsive to more conservative treatments. PROCEDURE DESCRIPTION / TECHNIQUE: The patient was seen and identified in the preoperative area. Risks, benefits, complications, and alternatives were discussed with the patient, the patient agreed to proceed with the procedure and signed the consent. IV was started. Vital signs remained stable throughout the procedure. Patient was taken to the OR and time out was completed. The patient was placed in the prone position on the procedure table. A pillow was placed under the patients chest to increase the cervical interlaminar space. The cervical area was prepped and draped in the usual sterile fashion. Critical pause was taken. Vital signs were closely monitored during the procedure. Conscious sedation was used during the procedure to decrease patients anxiety. Using cross-table lateral fluoroscopy, the centroid of the trapezoid of left C3, C4 , C5 was identified, marked, and localized with 1% lidocaine 1 ml at each level for skin and Sub Q infiltrations . Subsequently, a 22 G 3 spinal needle was advanced guided by fluoroscopy to the centroid of the trapezoid of left C3, C4 , C5, [place] tip position was confirmed at the centroid of the trapezoids of left C3 , C4 , C5 with anteroposterior fluoroscopy. Subsequently, 1.5 ml of preservative-free Ropivacaine 0.5% mixed with Depo-medrol 40 mg and half ml of the mixture was injected after negative aspiration for blood and CSF. [place] was then removed COMPLICATIONS: No acute complications. DISPOSITION / PLANS: The patient was placed in a supine position and transferred to the recovery area in a stable condition for observation and was discharged from the recovery room after meeting discharge criteria. Home discharge instructions given to the patient by the staff. The patient was reexamined prior to discharge. The patient will schedule a follow up in the clinic in 2-4 weeks.
[2018-07-10] MEDS ORDERED: IV FLUID CONTINUATION 1,000 ML IV ONE (08:42)
--- NOTE | 2018-07-10 08:49 | FL ---
EXAMINATION TYPE: FL guided pain mgmt statistic DATE OF EXAM: 07/10/2018 CLINICAL HISTORY: Neck pain. TECHNIQUE: Fluoroscopy. COMPARISON: None. FINDINGS: Fluoroscopic guidance was provided during pain relief procedure performed by Dr. Cruz . A total of 14 seconds of fluoroscopic time was utilized during the procedure and two spot images a re acquired. Images acquired shows needle localization at multiple levels in the cervical spine. IMPRESSION: As Above.
[2018-07-10 08:51] VITALS: BP 143/88; PULSE 88
[2018-07-22 10:41] VITALS: BMI 32.4
== END 2018-07-10 09:37 | disposition home or self-care (01) ==
LOC: ORPAIN 07:11
PROVIDERS: ATTEND Specialist
DX: M47.22 Other spondylosis with radiculopathy, cervical region (principal); Z88.8 Allergy status to other drugs, medicaments and biological substances
CPT/HCPCS: 64490; 64491; 64492; J2250; J1030; J3010; 99152

== ENCOUNTER 2018-07-24 06:06 | Day surgery (SDC) | payer MEDICARE, OTHER ==
[2018-07-24 06:31] VITALS: RESP 18; TEMP 98.1
[2018-07-24] MEDS ORDERED: LIDOCAINE 1% 20 ML VIAL (10MG/ML) FOR IV START INTRADERMA ONE (06:40)
[2018-07-24] MEDS ORDERED: LACTATED RINGERS 1,000 ML IV ONE (06:43)
--- NOTE | 2018-07-24 07:15 | P.PCN ---
Date of Procedure: 07/24/18 Description of Procedure: Procedure: Cervical Medial Branch Block at left C3, C4, C5, C6 Indications: Neck Pain Anesthesia: 2 mg of Versed Description of procedure: The patient was seen and examined in the [facility]. Procedure risks and benefits were fully reviewed with patient. The patient understands this is a diagnostic as well as a therapeutic procedure and that the goal of the procedure is to inject medication on to the medial branch or small nerves that go into the facet joints. In this way, we can hopefully identify which of these joints, if any, may be contributing to their pain. Informed consent for the procedure was obtained. The patient was taken into the office fluoroscopy procedure room and placed supine on the table. Vital signs were closely monitored during the procedure. The skin over the area was prepped with chlorhexidine and draped in usual sterile manner. Sterile technique was observed throughout procedure. Under fluoroscopic guidance, the target injection areas of the C C3, C4, C5, C6 medial branch nerve locations were visualized in AP, oblique and lateral views. Using biplanar fluoroscopy, a 25 gauge 3.5 inch spinal needle was inserted into proper position where the tip of the needle was located at the midpoint of the quadrangle at each level. After negative aspiration for blood and CSF, 0.5cc of 0.25 % Ropivacaine was injected into each of the targeted areas. The needles were withdrawn intact. No complications were noted during the procedure. The patient tolerated procedure well. The patient was placed in supine position and transferred to the recovery area for observation and remained stable until discharged home. Home discharge instructions given to the patient by the staff. The patient was reexamined prior to discharge. Follow up/plan: We'll schedule patient for left-sided radiofrequency ablation with sedation
[2018-07-24] MEDS ORDERED: IV FLUID CONTINUATION 1,000 ML IV ONE (07:25)
[2018-07-24 07:52] VITALS: BP 137/74; PULSE 83
--- NOTE | 2018-07-24 08:24 | FL ---
EXAMINATION TYPE: FL guided pain mgmt statistic DATE OF EXAM: 07/24/2018 CLINICAL HISTORY: Neck pain. TECHNIQUE: Fluoroscopy. COMPARISON: None. FINDINGS: Fluoroscopic guidance was provided during pain relief procedure performed by Dr. Boyer. A total of 5 seconds of fluoroscopic time was utilized during the procedure and two spot images are acquired. Images acquired shows needle localization of the cervical spine. IMPRESSION: As Above.
== END 2018-07-24 08:06 | disposition home or self-care (01) ==
LOC: ORPAIN 06:06
PROVIDERS: ATTEND Hospitalist
DX: M47.22 Other spondylosis with radiculopathy, cervical region (principal); F17.200 Nicotine dependence, unspecified, uncomplicated; G89.29 Other chronic pain; Z79.899 Other long term (current) drug therapy; Z79.891 Long term (current) use of opiate analgesic
CPT/HCPCS: 64490; 64491; 64492; J2250

== ENCOUNTER 2018-08-31 18:17 | Emergency (ER) | payer MEDICARE, OTHER ==
[2018-08-31 18:29] VITALS: BP 146/93; PULSE 83; RESP 18; TEMP 98.2
--- NOTE | 2018-08-31 18:54 | ED ---
General Adult HPI - General Chief complaint: Skin/Abscess/Foreign Body Stated complaint: infected bite Time Seen by Provider: 08/31/18 18:29 Source: patient Mode of arrival: ambulatory Limitations: no limitations - History of Present Illness Initial comments: 52yo male presenting for evaluation of bug bite. Bitten 3 days ago by unknown bug. Patient states there is now surrounding redness. Denies have tick attached to skin. Patient denies fever, malaise. He states the area is warm to touch. Patient denies drainage. Patient was concerned it was infected and presented to the ER for evaluation. Patient denies history of MRSA. Patient appears well, nontoxic on arrival. Afebrile. - Related Data Home Medications Medication Instructions Recorded Confirmed Cyclobenzaprine [Flexeril] 10 mg PO TID 11/01/17 08/14/18 Ibuprofen [Motrin Ib] 800 mg PO Q6HR PRN 12/11/17 08/14/18 lamoTRIgine [LaMICtal] 150 mg PO DAILY 12/11/17 08/14/18 Sertraline [Zoloft] 150 mg PO DAILY 03/22/18 08/14/18 traMADol HCL [Ultram] 50 mg PO Q6H 03/22/18 08/14/18 L.acidoph,Paracasei, B.lactis 1 cap PO DAILY 06/16/18 08/14/18 [Probiotic] Multivitamins, Thera [Multivitamin 1 tab PO DAILY 06/16/18 08/14/18 (formulary)] Previous Rx's Medication Instructions Recorded Cephalexin [Keflex] 500 mg PO Q6HR 5 Days #20 cap 08/31/18 Allergies Allergy/AdvReac Type Severity Reaction Status Date / Time clonidine [From Catapres] AdvReac Vomiting Verified 08/31/18 18:26 Review of Systems ROS Statement: Those systems with pertinent positive or pertinent negative responses have been documented in the HPI. ROS Other: All systems not noted in ROS Statement are negative. Past Medical History Past Medical History: Hypertension Additional Past Medical History / Comment(s): degenerative disc in back, diverticulosis. History of Any Multi-Drug Resistant Organisms: C-DIFF Date of last positivie culture/infection: 2008 MDRO Source:: stool Past Surgical History: Bowel Resection, Orthopedic Surgery Additional Past Surgical History / Comment(s): COLONOSCOPY; 10 inches of colon removed from diverticulosis., pt had scrotal lump removed, PAIN CLINIC PROCEDURE, left rotator cuff Past Anesthesia/Blood Transfusion Reactions: No Reported Reaction Past Psychological History: Anxiety, Bipolar, Depression Smoking Status: Current every day smoker Past Alcohol Use History: None Reported Past Drug Use History: None Reported - Past Family History Mother Family Medical History: Congestive Heart Failure (CHF) General Exam - General Exam Comments Initial Comments: General: The patient is awake and alert, in no distress, and does not appear acutely ill. Eye: Pupils are equal, round and reactive to light, extra-ocular movements are intact. No nystagmus. There is normal conjunctiva bilaterally. No signs of icterus. Cardiovascular: There is a regular rate and rhythm. No murmur, rub or gallop is appreciated. Respiratory: Lungs are clear to auscultation, respirations are non-labored, breath sounds are equal. No wheezes, stridor, rales, or rhonchi. Musculoskeletal: Normal ROM, no tenderness. Strength 5/5. Sensation intact. Pulses equal bilaterally 2+. Neurological: A&O x 3. CN II-XII intact, There are no obvious motor or sensory deficits. Coordination appears grossly intact. Speech is normal. Skin: Skin is warm and dry. Small circular area of erythema of the left LE, no bulls eye appearance, no fluctuance or drainage. Very small amount surrounding the area of small break in skin. Mild tenderness to palpation. No significant warmth appreciated. Psychiatric: Cooperative, appropriate mood & affect, normal judgment. Limitations: no limitations Course Vital Signs 08/31/18 18:26 Temperature 98.2 F Pulse Rate 83 Respiratory 18 Rate Blood Pressure 146/93 O2 Sat by Pulse 98 Oximetry Medical Decision Making - Medical Decision Making Nontoxic appearing. 52-year-old male presenting evaluation of insect bite. Denies constitutional symptoms. On exam there is a mild erythematous area surrounding small break in skin. No bull's-eye-like pattern. Patient states he was bitten by a tick to his knowledge. No evidence of abscess. Could be local inflammatory reaction versus developing cellulitis. Patient will be s tarted on Keflex and instructed to follow-up with his primary care provider return parameters were discussed at length patient, patient verbalized understadning was discharged appearing well. Disposition Clinical Impression: Insect bite Disposition: HOME SELF-CARE Condition: Good Instructions (If sedation given, give patient instructions): Cellulitis (ED), Insect Bite or Sting (ED) Additional Instructions: Please use medication as discussed. Please follow-up with family doctor in 2 days. Please return to emergency room if the symptoms increase or worsen or for any other concerns. Prescriptions: Cephalexin [Keflex] 500 mg PO Q6HR 5 Days #20 cap Is patient prescribed a controlled substance at d/c from ED?: No Referrals: Florencio Goodman MD [Primary Care Provider] - 1-2 days Time of Disposition: 19:01
== END 2018-08-31 19:03 | disposition home or self-care (01) ==
LOC: EC 18:17
DX: S80.862A Insect bite (nonvenomous), left lower leg, initial encounter (principal); F17.200 Nicotine dependence, unspecified, uncomplicated; F31.9 Bipolar disorder, unspecified; F41.9 Anxiety disorder, unspecified; Z88.8 Allergy status to other drugs, medicaments and biological substances; Z79.891 Long term (current) use of opiate analgesic; Z79.899 Other long term (current) drug therapy; Z86.19 Personal history of other infectious and parasitic diseases; Z87.19 Personal history of other diseases of the digestive system; W57.XXXA Bitten or stung by nonvenomous insect and other nonvenomous arthropods, initial encounter
CPT/HCPCS: 99282

== ENCOUNTER → 2018-09-01 | Outpatient (CLI) | payer MEDICARE, OTHER ==
[2018-09-01 13:31] VITALS: RESP 16
[2018-09-01 13:35] VITALS: BP 147/89; PULSE 99; TEMP 98.4
--- NOTE | 2018-09-02 11:27 | P.PAINPG ---
Subjective Progress Note Date: 09/01/18 This is 52 year old male with a chronic history of severe neck pain, diagnosed with cervical radiculopathy and cervical spondylosis with cervical facet arthropathy. He underwent left-sided cervical radiofrequency ablation at C3-4, C4-5, C5-6 on 08/19/2018. He reports that the pain relief from this procedure is not as significant as his medial branch block. I counseled him that this can take up to one month to take affect. He denies any change in bowel movement or urination. Denies any motor or sensory deficit to continue to use Ultram 50 mg every 6 hours when necessary Motrin 800 mg 3 times a day and Flexeril 10 mg daily he denies any side effect of the medication Review of systems: 13 point review of systems was negative. Of note denies chest pain, palpitations, shortness of breath, bowel or bladder incontinence, weakness, numbness or tingling, fevers, chills, night sweats, recent stroke. Objective GENERAL: Well appearing, in no acute distress PSYCH: Mood and affect is appropriate. Awake, alert, and oriented SKIN: Skin color, texture, turgor normal, no rashes or lesions HEENT: Normocephalic, atraumatic. EOM intact CV: No pedal edema RESP: Respirations are unlabored, no audible wheezing GI: Abdomen non-distended MUSCULOSKELETAL: Bilateral upper and lower extremity strength is normal and symmetric. No atrophy or tone abnormalities are noted. Neck: Tenderness to palpation over the cervical paraspinous muscles. Spurling negative, positive facet loading, Beckham's sign negative. Mild Pain with neck flexion, extension, and lateral flexion. No obvious deformity or signs of trauma. Normal cervical lordotic curve and normal cervical spine range of motion Extremities: Peripheral joint ROM is full and pain free without obvious instability or laxity in all four extremities. No edema or skin discolorations noted. Gait: Gait is normal NEUR: Bilateral upper extremity coordination and muscle stretch reflexes are physiologic and symmetric. No loss of sensation is noted. Cranial nerves are grossly intact Assessment and Plan Plan: Assessment and plan=1-cervical radiculopathy. 2-cervical spondylosis with cervical facet arthropathy without myelopathy. ( left side ) Patient had no benefit after cervical epidural steroid injections 2 Patient underwent left side C34/C45/C56 RFA and has not yet experienced benefit from it Prescription for neck physical therapy with cervical traction provided today Patient will follow-up when necessary if no improvement with cervical physical therapy Objective - Vital Signs Vital signs: Vital Signs Temp 98.4 F 09/01/18 13:31 Pulse 99 09/01/18 13:31 Resp 16 09/01/18 13:31 BP 147/89 09/01/18 13:31 Pulse Ox 94 L 09/01/18 13:31 PQRS Measure Charge Sheet Measure #130: Documentation of Current Meds in Medical Chart: Patient's medications documented in chart Measure #226: Tobacco Use: Screen & Cessation Intervention: Pt screened for tobacco use AND intervention given Measure #111: Pneumonia Vaccination: Pneumococcal vaccine NOT administered or previously given Measure #47: Advance Care Plan: Advance care planning discussed & documented, pt chose/unable to give Measure #412: Opioid Treatment Agreement: No documentation of signed opioid treatment agreement Measure #408: Opioid Therapy Follow-up Evaluation: Patient had NO f/u eval minimum every 3 months during opioid therapy Measure #317: Preventitive Care & Scrn High Bld Press & F/U: Pre-hypertensive or hypertensive BP documented, pt will f/u with PCP Measure #128: Body Mass Index (BMI) Screening & Follow-up: BMI documented ABOVE normal parameters - f/u documented Measure #131: Pain Assessment & Follow-up: Pain positive & plan documented, Follow-up PRN Measure #431: Unhealthy Alcohol Use Preventative Care & Scrn: Patient not identified as an unhealthy alcohol user PQRS Narrative: Smoking Status Current every day smoker Blood Pressure 147/89 Pain Intensity [Left Neck] 6 Scale Used Numeric (1 - 10) Hx Alcohol Use (MH) No Home Medications: Ambulatory Orders Cyclobenzaprine [Flexeril] 10 mg PO TID 11/01/17 Ibuprofen [Motrin Ib] 800 mg PO Q6HR PRN 12/11/17 lamoTRIgine [LaMICtal] 150 mg PO DAILY 12/11/17 Sertraline [Zoloft] 150 mg PO DAILY 03/22/18 traMADol HCL [Ultram] 50 mg PO Q6H 03/22/18 L.acidoph,Paracasei, B.lactis [Probiotic] 1 cap PO DAILY 06/16/18 Multivitamins, Thera [Multivitamin (formulary)] 1 tab PO DAILY 06/16/18 Cephalexin [Keflex] 500 mg PO Q6HR 5 Days #20 cap 08/31/18 Controlled Substance Measures - Controlled Substance Measures Is patient prescribed a controlled substance at discharge?: No
== END | disposition home or self-care (01) ==
LOC: PNWHC3 13:17
PROVIDERS: ATTEND Anesthesiology
DX: M47.22 Other spondylosis with radiculopathy, cervical region (principal); F17.200 Nicotine dependence, unspecified, uncomplicated; Z79.1 Long term (current) use of non-steroidal anti-inflammatories (NSAID); Z79.899 Other long term (current) drug therapy
CPT/HCPCS: 99211

== ENCOUNTER 2018-09-14 20:33 | Emergency (ER) | payer MEDICARE ==
[2018-09-14 20:48] VITALS: RESP 18; TEMP 98
[2018-09-14] MEDS ORDERED: SODIUM CHLORIDE 0.9% 1,000 ML IV STA (20:59)
[2018-09-14] MEDS ORDERED: MORPHINE SULFATE 4 MG/ML SYRINGE IV STA (21:08)
[2018-09-14] MEDS ORDERED: ONDANSETRON 4 MG/2 ML VIAL IVP STA (21:08)
[2018-09-14 21:28] LABS: Basophils # (A) 0.1 k/uL (0-0.2); Basophils % (A) 1 %; Eosinophils # (A) 0.5 k/uL (0-0.7); Eosinophils % (A) 5 %; HCT 40.8 % (39.0-53.0); HGB 13.4 gm/dL (13.0-17.5); Lymphocytes # (A) 3.2 k/uL (1.0-4.8); Lymphocytes % (A) 36 %; MCH 28.5 pg (25.0-35.0); MCHC 32.8 g/dL (31.0-37.0); MCV 86.9 fL (80.0-100.0); Mean Platelet Volume 6.3; Monocytes # (A) 0.4 k/uL (0-1.0); Monocytes % (A) 5 %; Neutrophils # (A) 4.4 k/uL (1.3-7.7); Neutrophils % (A) 49 %; Platelet Count 319 k/uL (150-450); RDW 13.1 % (11.5-15.5); WBC 8.9 k/uL (3.8-10.6)
[2018-09-14 21:38] LABS: Appearance,Urine Clear (Clear); Bilirubin,Urine Negative (Negative); Blood,Urine Negative (Negative); Color,Urine Light Yellow; Glucose,Urine (UA) Negative (Negative); Ketones,Urine Negative (Negative); Leukocyte Esterase,Urine Negative (Negative); Nitrite,Urine Negative (Negative); Protein,Urine Negative (Negative); Specific Gravity,Urine 1.004 (1.001-1.035); Urobilinogen,Urine <2.0 mg/dL (<2.0)
[2018-09-14 21:38] LABS: ALT 17 U/L (21-72); AST 17 U/L (17-59); African American GFR (CKD) >90 (>60 ml/min/1.73 sqM); Albumin 3.8 g/dL (3.5-5.0); Alkaline Phosphatase 57 U/L (38-126); Anion Gap 8 mmol/L; Blood Urea Nitrogen 11 mg/dL (9-20); Calcium 9.6 mg/dL (8.4-10.2); Carbon Dioxide 25 mmol/L (22-30); Chloride 107 mmol/L (98-107); Glucose 103 mg/dL (74-99); Potassium 3.9 mmol/L (3.5-5.1); Sodium 140 mmol/L (137-145); Total Bilirubin 0.3 mg/dL (0.2-1.3); Total Protein 6.4 g/dL (6.3-8.2)
--- NOTE | 2018-09-14 21:56 | ED ---
General Adult HPI - General Chief complaint: Abdominal Pain Stated complaint: Abd pain Time Seen by Provider: 09/14/18 20:39 Source: patient, RN notes reviewed, old records reviewed Mode of arrival: ambulatory Limitations: no limitations - History of Present Illness Initial comments: 52-year-old male patient with past medical history of recurrent diverticulitis presents ED left lower quadrant pain for 3 days. Patient reports nausea and vomiting. Patient states symptoms feel similar to diverticulitis in past. Denies any other complaints. Systemic: Pt denies fatigue, fever/chills, rash. Pt denies weakness, night sweats, weight loss. Neuro: Pt denies headache, visual disturbances, syncope or pre-syncope. HEENT: Pt denies ocular discharge or irritation, otalgia, rhinorrhea, pharyngitis or notable lymphadenopathy. Cardiopulmonary: Pt denies chest pain, SOB, heart palpitations, dyspnea on exertion. : Pt denies dysuria, burning w/ urination, frequency/urgency. Denies new onset urinary or bowel incontinence. MSK: Pt denies myalgia, loss of strength or function in extremities. Neuro: Pt denies new onset weakness, paresthesias. - Related Data Home Medications Medication Instructions Recorded Confirmed Cyclobenzaprine [Flexeril] 10 mg PO TID 11/01/17 09/01/18 Ibuprofen [Motrin Ib] 800 mg PO Q6HR PRN 12/11/17 09/01/18 lamoTRIgine [LaMICtal] 150 mg PO DAILY 12/11/17 09/01/18 Sertraline [Zoloft] 150 mg PO DAILY 03/22/18 09/01/18 traMADol HCL [Ultram] 50 mg PO Q6H 03/22/18 09/01/18 L.acidoph,Paracasei, B.lactis 1 cap PO DAILY 06/16/18 09/01/18 [Probiotic] Multivitamins, Thera [Multivitamin 1 tab PO DAILY 06/16/18 09/01/18 (formulary)] Previous Rx's Medication Instructions Recorded Cephalexin [Keflex] 500 mg PO Q6HR 5 Days #20 cap 08/31/18 Allergies Allergy/AdvReac Type Severity Reaction Status Date / Time clonidine [From Catapres] AdvReac Vomiting Verified 09/14/18 20:45 Review of Systems ROS Statement: Those systems with pertinent positive or pertinent negative responses have been documented in the HPI. ROS Other: All systems not noted in ROS Statement are negative. Past Medical History Past Medical History: Hypertension Additional Past Medical History / Comment(s): degenerative disc in back, diverticulosis. History of Any Multi-Drug Resistant Organisms: C-DIFF Date of last positivie culture/infection: 2008 MDRO Source:: stool Past Surgical History: Bowel Resection, Orthopedic Surgery Additional Past Surgical History / Comment(s): COLONOSCOPY; 10 inches of colon removed from diverticulosis., pt had scrotal lump removed, PAIN CLINIC PROCEDURE, left rotator cuff Past Anesthesia/Blood Transfusion Reactions: No Reported Reaction Past Psychological History: Anxiety, Bipolar, Depression Smoking Status: Current every day smoker Past Alcohol Use History: None Reported Past Drug Use History: None Reported - Past Family History Mother Family Medical History: Congestive Heart Failure (CHF) General Exam - General Exam Comments Initial Comments: Constitutional: NAD, AOX3, Pt has pleasant affect. HEENT: NC/AT, trachea midline, neck supple, no lymphadenopathy. Posterior pharynx non erythematous, without exudates. External ears appear normal, without discharge. Mucous membranes moist. Eyes PERRLA, EOM intact. There is no scleral icterus. No pallor noted. Cardiopulmonary: RRR, no murmurs, rubs or gallops, no JVD noted. Lungs CTAB in anterior and posterior [place]. No peripheral edema. Abdominal exam: Abdomen soft and non-distended. Left lower quadrant mildly tender to palpation, no other leila of abdominal tenderness. Bowel sounds active in LLQ. No hepatosplenomegaly. No ecchymosis Neuro: CN II-XII grossly intact. No nuchal rigidity. No raccon eyes, no martinez sign, no hemotympanum. No cervical spinal tenderness. MSK: No posterior calf tenderness bilaterally, homans sign negative bilaterally. Posterior tibialis and radial pulse +2 bilaterally. Sensation intact in upper and lower extremities. Full active ROM in upper and lower extremities, 5/5 stregnth. Limitations: no limitations Course Vital Signs 09/14/18 20:43 Temperature 98.0 F Pulse Rate 74 Respiratory 18 Rate Blood Pressure 158/97 O2 Sat by Pulse 95 Oximetry Medical Decision Making - Medical Decision Making 52-year-old male patient with past medical history of recurrent diverticulitis presents ED left lower quadrant pain for 3 days. Patient reports nausea and vomiting. Patient states symptoms feel similar to diverticulitis in past. Denies any other complaints. Patient vital signs stable, afebrile. Physical exam displayed left lower quadrant tenderness. Laboratory investigations non- impressive. UA negative. CT abdomen and pelvis display diverticulosis without diverticulitis. Possible gastroenteritis. She'll discharge, follow up with primary care provider and GI consult. Case discussed with Dr. Lay. - Lab Data Result diagrams: 09/14/18 21:09 09/14/18 21:09 Lab Results 09/14/18 09/14/18 09/14/18 Range/Units 21:09 21:09 21:16 WBC 8.9 (3.8-10.6) k/uL RBC 4.70 (4.30-5.90) m/uL Hgb 13.4 (13.0-17.5) gm/dL Hct 40.8 (39.0-53.0) % MCV 86.9 (80.0-100.0) fL MCH 28.5 (25.0-35.0) pg MCHC 32.8 (31.0-37.0) g/dL RDW 13.1 (11.5-15.5) % Plt Count 319 (150-450) k/uL Neutrophils % 49 % Lymphocytes % 36 % Monocytes % 5 % Eosinophils % 5 % Basophils % 1 % Neutrophils # 4.4 (1.3-7.7) k/uL Lymphocytes # 3.2 (1.0-4.8) k/uL Monocytes # 0.4 (0-1.0) k/uL Eosinophils # 0.5 (0-0.7) k/uL Basophils # 0.1 (0-0.2) k/uL Sodium 140 (137-145) mmol/L Potassium 3.9 (3.5-5.1) mmol/L Chloride 107 (98-107) mmol/L Carbon Dioxide 25 (22-30) mmol/L Anion Gap 8 mmol/L BUN 11 (9-20) mg/dL Creatinine 0.84 (0.66-1.25) mg/dL Est GFR (CKD-EPI)AfAm >90 (>60 ml/min/1.73 sqM) Est GFR (CKD-EPI)NonAf >90 (>60 ml/min/1.73 sqM) Glucose 103 H (74-99) mg/dL Calcium 9.6 (8.4-10.2) mg/dL Total Bilirubin 0.3 (0.2-1.3) mg/dL AST 17 (17-59) U/L ALT 17 L (21-72) U/L Alkaline Phosphatase 57 (38-126) U/L Total Protein 6.4 (6.3-8.2) g/dL Albumin 3.8 (3.5-5.0) g/dL Lipase 122 (23-300) U/L Urine Color Light Yellow Urine Appearance Clear (Clear) Urine pH 7.0 (5.0-8.0) Ur Specific [place] 1.004 (1.001-1.035) Urine Protein Negative (Negative) Urine Glucose (UA) Negative (Negative) Urine Ketones Negative (Negative) Urine Blood Negative (Negative) Urine Nitrite Negative (Negative) Urine Bilirubin Negative (Negative) Urine Urobilinogen <2.0 (<2.0) mg/dL Ur Leukocyte Esterase Negative (Negative) Disposition Clinical Impression: Abdominal pain Disposition: HOME SELF-CARE Condition: Stable Instructions (If sedation given, give patient instructions): Abdominal Pain (ED) Additional Instructions: Patient to adhere to previously discussed treatment plan and will take medication(s) as directed. Patient to follow up with PCP in 1-2 days. Patient to return to ED if symptoms do not improve. Follow-up with primary care provider and GI consult tomorrow. Return to ER if condition worsens. Is patient prescribed a controlled substance at d/c from ED?: No Referrals: Florencio Goodman MD [Primary Care Provider] - 1-2 days Constantino Ortiz MD [STAFF PHYSICIAN] - 1-2 days
--- NOTE | 2018-09-14 22:12 | CT ---
EXAMINATION TYPE: CT abdomen pelvis w con DATE OF EXAM: 09/14/2018 COMPARISON: Prior CT 07/09/2018 HISTORY: Abdominal pain CT DLP: 967.4 mGycm Automated exposure control for dose reduction was used. TECHNIQUE: Helical acquisition of images from the lung bases through the pelvis have been completed. CONTRAST: Performed without Oral Contrast and with IV Contrast, patient injected with 100 mL of Isovue 300. FINDINGS: Umbilical hernia contains fat. LUNG BASES: No significant abnormality is appreciated. AORTA: No significant abnormality is appreciated. LIVER/GB: No significant abnormality is appreciated. PANCREAS: No significant abnormality is seen. SPLEEN: No significant abnormality is seen. ADRENALS: No significant abnormality is seen. KIDNEYS: No significant abnormality is seen. Circumaortic left renal vein is present. REPRODUCTIVE ORGANS: Stable prostatic calcifications noted. BOWEL: Some small bowel loops show some areas of wall thickening.. Postop changes are present. Appen ishmael is normal. Scattered diverticular changes noted. Duodenal diverticulum is present. FREE AIR: No Free Air visible. ASCITES: None visible. PELVIC ADENOPATHY: None visualized. RETROPERITONEAL ADENOPATHY: No Retroperitoneal Adenopathy visible. URINARY BLADDER: No significant abnormality is seen. OSSEOUS STRUCTURES: No significant abnormality is seen. IMPRESSION: SIMILAR TO PRIOR EXAM. DIVERTICULOSIS, CORRELATE FOR POSSIBLE GASTROENTERITIS. POSTOP CHANGES.
[2018-09-14] MEDS ORDERED: ONDANSETRON 4 MG ODT STARTER PACK 2 TAB BTL PO STA (22:24)
[2018-09-14 22:52] VITALS: BP 144/88; PULSE 66
== END 2018-09-14 22:53 | disposition home or self-care (01) ==
LOC: EC 20:33
DX: R10.32 Left lower quadrant pain (principal); R11.2 Nausea with vomiting, unspecified; K57.90 Diverticulosis of intestine, part unspecified, without perforation or abscess without bleeding; I10 Essential (primary) hypertension; F31.9 Bipolar disorder, unspecified; F41.9 Anxiety disorder, unspecified; F17.200 Nicotine dependence, unspecified, uncomplicated; Z87.19 Personal history of other diseases of the digestive system; Z98.890 Other specified postprocedural states; Z79.891 Long term (current) use of opiate analgesic; Z79.899 Other long term (current) drug therapy; Z88.8 Allergy status to other drugs, medicaments and biological substances
CPT/HCPCS: 36415; 80053; 83690; 85025; 81003; 74177; 99284; 96374; 96375; 96361 ×2; J2270; J2405; S0119; Q9967

== ENCOUNTER 2018-12-01 10:56 | Emergency (ER) | payer MEDICARE ==
[2018-12-01 11:10] VITALS: RESP 18; TEMP 98.8
[2018-12-01] MEDS ORDERED: HYDROcodone/APAP 5-325MG 1 EACH TAB PO STA (11:27)
--- NOTE | 2018-12-01 11:42 | ED ---
Extremity Problem HPI - General Chief complaint: Extremity Problem,Nontraumatic Stated complaint: Pain in Rt shoulder Time Seen by Provider: 12/01/18 11:23 Source: patient, RN notes reviewed Mode of arrival: ambulatory Limitations: no limitations - History of Present Illness Initial comments: This a 53-year-old male presents emergency department tingling right shoulder pain. Patient states it started hurting a week or so ago. Patient states he did not do anything to it that he knows of though he did do some increasing housework. Patient states that he had some her symptoms of left shoulder and which she had surgery by Dr. Ortega. Patient states feels exactly the same he has some achy pain at rest but states it's much worse when he lifts his arm up. Patient is right-hand dominant no paresthesias. Denies any chest pain or shortness breath. - Related Data Home Medications Medication Instructions Recorded Confirmed Cyclobenzaprine [Flexeril] 10 mg PO TID 11/01/17 09/01/18 Ibuprofen [Motrin Ib] 800 mg PO Q6HR PRN 12/11/17 09/01/18 lamoTRIgine [LaMICtal] 150 mg PO DAILY 12/11/17 09/01/18 Sertraline [Zoloft] 150 mg PO DAILY 03/22/18 09/01/18 traMADol HCL [Ultram] 50 mg PO Q6H 03/22/18 09/01/18 L.acidoph,Paracasei, B.lactis 1 cap PO DAILY 06/16/18 09/01/18 [Probiotic] Multivitamins, Thera [Multivitamin 1 tab PO DAILY 06/16/18 09/01/18 (formulary)] Previous Rx's Medication Instructions Recorded Cephalexin [Keflex] 500 mg PO Q6HR 5 Days #20 cap 08/31/18 Ibuprofen [Motrin] 600 mg PO Q8HR PRN #30 tab 12/01/18 Allergies Allergy/AdvReac Type Severity Reaction Status Date / Time clonidine [From Catapres] AdvReac Vomiting Verified 09/14/18 20:45 Review of Systems ROS Statement: Those systems with pertinent positive or pertinent negative responses have been documented in the HPI. ROS Other: All systems not noted in ROS Statement are negative. Past Medical History Past Medical History: Hypertension Additional Past Medical History / Comment(s): degenerative disc in back, diverticulosis. History of Any Multi-Drug Resistant Organisms: C-DIFF Date of last positivie culture/infection: 2008 MDRO Source:: stool Past Surgical History: Back Surgery, Bowel Resection, Orthopedic Surgery Additional Past Surgical History / Comment(s): COLONOSCOPY; 10 inches of colon removed from diverticulosis., pt had scrotal lump removed, PAIN CLINIC PROCEDURE, left rotator cuff Past Anesthesia/Blood Transfusion Reactions: No Reported Reaction Past Psychological History: Anxiety, Bipolar, Depression Smoking Status: Current every day smoker Past Alcohol Use History: None Reported Past Drug Use History: None Reported - Past Family History Mother Family Medical History: Congestive Heart Failure (CHF) General Exam Limitations: no limitations General appearance: alert, in no apparent distress Head exam: Present: atraumatic, normocephalic, normal inspection Eye exam: Present: normal appearance, PERRL, EOMI. Absent: scleral icterus, conjunctival injection, periorbital swelling ENT exam: Present: normal exam, normal oropharynx, mucous membranes moist, TM's normal bilaterally Neck exam: Present: normal inspection, full ROM. Absent: tenderness, meningismus, lymphadenopathy Respiratory exam: Present: normal lung sounds bilaterally. Absent: respiratory distress, wheezes, rales, rhonchi, stridor Cardiovascular Exam: Present: regular rate, normal rhythm, normal heart sounds. Absent: systolic murmur, diastolic murmur, rubs, gallop, clicks Extremities exam: Present: other (Limited range of motion the right shoulder secondary pain, minimal discomfort with palpation neurovascular intact no swelling or erythema noted) Course Vital Signs 12/01/18 12/01/18 11:07 12:25 Temperature 98.8 F Pulse Rate 87 74 Respiratory 18 18 Rate Blood Pressure 154/101 150/92 O2 Sat by Pulse 99 98 Oximetry Medical Decision Making - Medical Decision Making X-ray shows Ac joint arthritic changes. Patient symptoms were consistent with right shoulder rotator cuff syndrome. Patient will follow-up with prior orthopedic physician at Dr. Ortega. Patient was discharged return parameters were discussed. Disposition Clinical Impression: Rotator cuff syndrome of right shoulder Disposition: HOME SELF-CARE Condition: Stable Instructions (If sedation given, give patient instructions): Shoulder Pain (ED) Additional Instructions: Please return to the Emergency Department if symptoms worsen or any other concerns. Prescriptions: Ibuprofen [Motrin] 600 mg PO Q8HR PRN #30 tab PRN Reason: Pain Is patient prescribed a controlled substance at d/c from ED?: No Referrals: Florencio Goodman MD [Primary Care Provider] - 1-2 days Jayjay Ortega DO [Doctor of Osteopathic Medicine] - 1-2 days Time of Disposition: 13:07
--- NOTE | 2018-12-01 12:14 | XR ---
EXAMINATION TYPE: XR shoulder complete RT DATE OF EXAM: 12/01/2018 COMPARISON: NONE HISTORY: Pain TECHNIQUE: Three views are submitted. FINDINGS: The osseous structures are intact. There is no acute fracture or dislocation. Arthropathy of the AC joint. IMPRESSION: 1. AC joint arthropathy.
[2018-12-01 12:26] VITALS: BP 150/92; PULSE 74
[2018-12-01] MEDS ORDERED: ACET/COD 300 MG/30 MG STARTER PACK 6 TAB BTL PO STA (13:08)
[2018-12-01] MEDS ORDERED: KETOROLAC 60 MG/2 ML VIAL IM STA (13:08)
== END 2018-12-01 13:28 | disposition home or self-care (01) ==
LOC: EC 10:56
DX: M75.101 Unspecified rotator cuff tear or rupture of right shoulder, not specified as traumatic (principal); F41.9 Anxiety disorder, unspecified; F32.9 Major depressive disorder, single episode, unspecified; F17.200 Nicotine dependence, unspecified, uncomplicated; Z98.890 Other specified postprocedural states; Z79.891 Long term (current) use of opiate analgesic; Z79.899 Other long term (current) drug therapy
CPT/HCPCS: 73030; 99283; 96372; J1885

== ENCOUNTER → 2018-12-02 | Outpatient (CLI) | payer MEDICARE ==
--- NOTE | 2018-12-02 09:47 | XR ---
EXAMINATION TYPE: XR elbow complete LT DATE OF EXAM: 12/02/2018 CLINICAL HISTORY: Left elbow pain and burning sensation TECHNIQUE: Frontal, lateral and oblique images of the left elbow are obtained. COMPARISON: None FINDINGS: There is no acute fracture/dislocation evident in the left elbow. No abnormal fat pad sig ns are seen. The overlying soft tissue appears unremarkable other than minimal soft tissue swelling over the distal humerus posteriorly and olecranon. IMPRESSION: There is no acute fracture or dislocation in the left elbow. Subtle soft tissue swelling is seen over the distal humerus and olecranon. Olecranon bursitis can't be considered. If clinical f indings are compatible with olecranon bursitis consider gout as an etiology.
== END | disposition home or self-care (01) ==
LOC: RADXRMAIN 09:26
PROVIDERS: ATTEND Family Medicine
DX: M79.89 Other specified soft tissue disorders (principal); M25.522 Pain in left elbow

== ENCOUNTER → 2018-12-23 | Outpatient (CLI) | payer MEDICARE ==
--- NOTE | 2018-12-23 09:23 | XR ---
EXAMINATION TYPE: XR shoulder complete RT DATE OF EXAM: 12/23/2018 CLINICAL HISTORY: Right shoulder pain for one month. TECHNIQUE: 2 views of the right shoulder are obtained. COMPARISON: Right shoulder x-ray December 01, 2018 FINDINGS: There is no acute fracture/dislocation evident in the right shoulder. [id number] hal rowing adequate ventricular joint. Distal acromion morphology unremarkable. Glenohumeral joint mainta ined. The visualized ribs are intact and unremarkable. IMPRESSION: As above. No significant change from prior.
== END | disposition home or self-care (01) ==
LOC: RADXRMAIN 08:42
PROVIDERS: ATTEND Orthopaedic Surgery
DX: M25.111 Fistula, right shoulder (principal)

== ENCOUNTER 2018-12-30 13:53 | Emergency (ER) | payer MEDICARE ==
[2018-12-30 14:04] VITALS: RESP 18
[2018-12-30] MEDS ORDERED: HYDROmorphone 0.5 MG/0.5 ML SYRINGE IVP STA (14:34)
[2018-12-30] MEDS ORDERED: ONDANSETRON 4 MG/2 ML VIAL IVP STA (14:34)
[2018-12-30 14:49] LABS: Basophils # (A) 0.1 k/uL (0-0.2); Basophils % (A) 1 %; Eosinophils # (A) 0.2 k/uL (0-0.7); Eosinophils % (A) 2 %; HCT 48.8 % (39.0-53.0); HGB 15.7 gm/dL (13.0-17.5); Lymphocytes # (A) 2.9 k/uL (1.0-4.8); Lymphocytes % (A) 27 %; MCH 28.3 pg (25.0-35.0); MCHC 32.2 g/dL (31.0-37.0); MCV 87.9 fL (80.0-100.0); Mean Platelet Volume 6.2; Monocytes # (A) 0.4 k/uL (0-1.0); Monocytes % (A) 4 %; Neutrophils # (A) 7.1 k/uL (1.3-7.7); Neutrophils % (A) 65 %; Platelet Count 314 k/uL (150-450); RBC 5.55 m/uL (4.30-5.90); RDW 12.9 % (11.5-15.5); WBC 10.9 k/uL (3.8-10.6)
--- NOTE | 2018-12-30 14:50 | ED ---
General Adult HPI - General Chief complaint: Abdominal Pain Stated complaint: Abd pain, Nausea, diarrhea Time Seen by Provider: 12/30/18 14:00 Source: patient, RN notes reviewed, old records reviewed Mode of arrival: ambulatory Limitations: no limitations - History of Present Illness Initial comments: This is a 53-year-old male who presents emergency Department with a past history significant for diverticulosis and diverticulitis which at one point time needed a colectomy patient states they took about 10 inches of his colon out in the past. Patient states since Saturday been having left-sided mid abdominal pain. Patient states it is painful to touch is also painful to drive the car hitting any bumps. Patient states he's had nausea but no vomiting he also has had diarrhea since Saturday. Patient denies any back pain. Patient denies any dysuri a hematuria urinary frequency. Patient any chest pain difficulty breathing. Patient denies any fever or chills. - Related Data Home Medications Medication Instructions Recorded Confirmed Cyclobenzaprine [Flexeril] 10 mg PO TID 11/01/17 12/30/18 Sertraline [Zoloft] 100 mg PO DAILY 03/22/18 12/30/18 traMADol HCL [Ultram] 50 mg PO Q6H 03/22/18 12/30/18 L.acidoph,Paracasei, B.lactis 1 cap PO DAILY 06/16/18 12/30/18 [Probiotic] lamoTRIgine [LaMICtal] 150 mg PO DAILY 12/01/18 12/30/18 Amitriptyline HCl [Elavil] 10 mg PO HS PRN 12/30/18 12/30/18 Previous Rx's Medication Instructions Recorded Ondansetron Odt [Zofran Odt] 4 mg PO Q8HR PRN #5 tab 12/30/18 Allergies Allergy/AdvReac Type Severity Reaction Status Date / Time clonidine [From Catapres] AdvReac Vomiting Verified 12/30/18 14:40 Review of Systems ROS Statement: Those systems with pertinent positive or pertinent negative responses have been documented in the HPI. ROS Other: All systems not noted in ROS Statement are negative. Past Medical History Past Medical History: Hypertension Additional Past Medical History / Comment(s): degenerative disc in back, diverticulosis. History of Any Multi-Drug Resistant Organisms: C-DIFF Date of last positivie culture/infection: 2008 MDRO Source:: stool Past Surgical History: Back Surgery, Bowel Resection, Orthopedic Surgery Additional Past Surgical History / Comment(s): COLONOSCOPY; 10 inches of colon removed from diverticulosis., pt had scrotal lump removed, PAIN CLINIC PROCEDURE, left rotator cuff Past Anesthesia/Blood Transfusion Reactions: No Reported Reaction Past Psychological History: Anxiety, Bipolar, Depression Smoking Status: Current every day smoker Past Alcohol Use History: None Reported Past Drug Use History: None Reported - Past Family History Mother Family Medical History: Congestive Heart Failure (CHF) General Exam - General Exam Comments Initial Comments: GENERAL: Patient is well-developed and well-nourished. Patient is nontoxic and well- hydrated and is in mild distress. ENT: Neck is soft and supple. No significant lymphadenopathy is noted. Oropharynx is clear. Moist mucous membranes. Neck has full range of motion without linda citing any pain. EYES: The sclera were anicteric and conjunctiva were pink and moist. Extraocular movements were intact and pupils were equal round and reactive to light. Eyelids were unremarkable. PULMONARY: Unlabored respirations. Good breath sounds bilaterally. No audible rales rhonchi or wheezing was noted. CARDIOVASCULAR: There is a regular rate and rhythm without any murmurs gallops or rubs. ABDOMEN: Abdomen is tender in left lower quadrant. SKIN: Skin is clear with no lesions or rashes and otherwise unremarkable. NEUROLOGIC: Patient is alert and oriented x3. Cranial nerves II through XII are grossly intact. Motor and sensory are also intact. Normal speech, volume and content. Symmetrical smile. MUSCULOSKELETAL: Normal extremities with adequate strength and full range of motion. No lower extremity swelling or edema. No calf tenderness. LYMPHATICS: No significant lymphadenopathy is noted PSYCHIATRIC: Normal psychiatric evaluation. Limitations: no limitations Course Vital Signs 12/30/18 14:01 Temperature 97.7 F Pulse Rate 84 Respiratory 18 Rate Blood Pressure 140/92 O2 Sat by Pulse 99 Oximetry Medical Decision Making - Medical Decision Making Patient's computed tomography scan showed some mildly dilated small bowel loops no obstruction was noted no diverticulitis was noted. I will begin to reevaluate the patient patient was no longer nauseated stated his pain was better and he has not had any diarrhea since he was in the emergency department. - Lab Data Result diagrams: 12/30/18 14:18 11/12/19 14:18 Lab Results 12/30/18 12/30/18 12/30/18 Range/Units 14:18 14:18 14:18 WBC 10.9 H (3.8-10.6) k/uL RBC 5.55 (4.30-5.90) m/uL Hgb 15.7 (13.0-17.5) gm/dL Hct 48.8 (39.0-53.0) % MCV 87.9 (80.0-100.0) fL MCH 28.3 (25.0-35.0) pg MCHC 32.2 (31.0-37.0) g/dL RDW 12.9 (11.5-15.5) % Plt Count 314 (150-450) k/uL Neutrophils % 65 % Lymphocytes % 27 % Monocytes % 4 % Eosinophils % 2 % Basophils % 1 % Neutrophils # 7.1 (1.3-7.7) k/uL Lymphocytes # 2.9 (1.0-4.8) k/uL Monocytes # 0.4 (0-1.0) k/uL Eosinophils # 0.2 (0-0.7) k/uL Basophils # 0.1 (0-0.2) k/uL Sodium 141 (137-145) mmol/L Potassium 4.1 (3.5-5.1) mmol/L Chloride 104 (98-107) mmol/L Carbon Dioxide 31 H (22-30) mmol/L Anion Gap 6 mmol/L BUN 12 (9-20) mg/dL Creatinine 0.94 (0.66-1.25) mg/dL Est GFR (CKD-EPI)AfAm >90 (>60 ml/min/1.73 sqM) Est GFR (CKD-EPI)NonAf >90 (>60 ml/min/1.73 sqM) Glucose 98 (74-99) mg/dL Plasma Lactic Acid David 1.8 (0.7-2.0) mmol/L Calcium 10.0 (8.4-10.2) mg/dL Total Bilirubin 0.6 (0.2-1.3) mg/dL AST 22 (17-59) U/L ALT 26 (21-72) U/L Alkaline Phosphatase 80 (38-126) U/L Total Protein 7.7 (6.3-8.2) g/dL Albumin 4.5 (3.5-5.0) g/dL Amylase 58 (30-110) U/L Lipase 51 (23-300) U/L Urine Color Urine Appearance (Clear) Urine pH (5.0-8.0) Ur Specific [place] (1.001-1.035) Urine Protein (Negative) Urine Glucose (UA) (Negative) Urine Ketones (Negative) Urine Blood (Negative) Urine Nitrite (Negative) Urine Bilirubin (Negative) Urine Urobilinogen (<2.0) mg/dL Ur Leukocyte Esterase (Negative) 12/30/18 Range/Units 14:47 WBC (3.8-10.6) k/uL RBC (4.30-5.90) m/uL Hgb (13.0-17.5) gm/dL Hct (39.0-53.0) % MCV (80.0-100.0) fL MCH (25.0-35.0) pg MCHC (31.0-37.0) g/dL RDW (11.5-15.5) % Plt Count (150-450) k/uL Neutrophils % % Lymphocytes % % Monocytes % % Eosinophils % % Basophils % % Neutrophils # (1.3-7.7) k/uL Lymphocytes # (1.0-4.8) k/uL Monocytes # (0-1.0) k/uL Eosinophils # (0-0.7) k/uL Basophils # (0-0.2) k/uL Sodium (137-145) mmol/L Potassium (3.5-5.1) mmol/L Chloride (98-107) mmol/L Carbon Dioxide (22-30) mmol/L Anion Gap mmol/L BUN (9-20) mg/dL Creatinine (0.66-1.25) mg/dL Est GFR (CKD-EPI)AfAm (>60 ml/min/1.73 sqM) Est GFR (CKD-EPI)NonAf (>60 ml/min/1.73 sqM) Glucose (74-99) mg/dL Plasma Lactic Acid David (0.7-2.0) mmol/L Calcium (8.4-10.2) mg/dL Total Bilirubin (0.2-1.3) mg/dL AST (17-59) U/L ALT (21-72) U/L Alkaline Phosphatase (38-126) U/L Total Protein (6.3-8.2) g/dL Albumin (3.5-5.0) g/dL Amylase (30-110) U/L Lipase (23-300) U/L Urine Color Light Yellow Urine Appearance Clear (Clear) Urine pH 7.5 (5.0-8.0) Ur Specific [place] 1.004 (1.001-1.035) Urine Protein Negative (Negative) Urine Glucose (UA) Negative (Negative) Urine Ketones Negative (Negative) Urine Blood Negative (Negative) Urine Nitrite Negative (Negative) Urine Bilirubin Negative (Negative) Urine Urobilinogen <2.0 (<2.0) mg/dL Ur Leukocyte Esterase Negative (Negative) Disposition Clinical Impression: Acute diarrhea Disposition: HOME SELF-CARE Condition: Good Instructions (If sedation given, give patient instructions): Acute Diarrhea (ED) Prescriptions: Ondansetron Odt [Zofran Odt] 4 mg PO Q8HR PRN #5 tab PRN Reason: Nausea Is patient prescribed a controlled substance at d/c from ED?: No Referrals: Florencio Goodman MD [Primary Care Provider] - 1-2 days Time of Disposition: 15:43
[2018-12-30 14:59] LABS: ALT 26 U/L (21-72); AST 22 U/L (17-59); African American GFR (CKD) >90 (>60 ml/min/1.73 sqM); Albumin 4.5 g/dL (3.5-5.0); Alkaline Phosphatase 80 U/L (38-126); Amylase 58 U/L (30-110); Anion Gap 6 mmol/L; Blood Urea Nitrogen 12 mg/dL (9-20); Carbon Dioxide 31 mmol/L (22-30); Chloride 104 mmol/L (98-107); Glucose 98 mg/dL (74-99); Potassium 4.1 mmol/L (3.5-5.1); Sodium 141 mmol/L (137-145); Total Bilirubin 0.6 mg/dL (0.2-1.3); Total Protein 7.7 g/dL (6.3-8.2)
[2018-12-30 15:04] LABS: Appearance,Urine Clear (Clear); Bilirubin,Urine Negative (Negative); Blood,Urine Negative (Negative); Color,Urine Light Yellow; Glucose,Urine (UA) Negative (Negative); Ketones,Urine Negative (Negative); Leukocyte Esterase,Urine Negative (Negative); Nitrite,Urine Negative (Negative); PH, Urine 7.5 (5.0-8.0); Protein,Urine Negative (Negative); Specific Gravity,Urine 1.004 (1.001-1.035); Urobilinogen,Urine <2.0 mg/dL (<2.0)
--- NOTE | 2018-12-30 15:23 | CT ---
EXAMINATION TYPE: CT abdomen pelvis w con DATE OF EXAM: 12/30/2018 COMPARISON: 09/14/2018 HISTORY: LLQ pain, nausea, diarrhea CT DLP: 1169 mGycm Automated exposure control for dose reduction was used. TECHNIQUE: Helical acquisition of images was performed from the lung bases through the pelvis. CONTRAST: Performed without Oral Contrast and with IV Contrast, patient injected with 100 mL of Isovue 300. FINDINGS: LUNG BASES: Minimal bibasilar subsegmental dependent atelectasis. LIVER/GB: Hepatic parenchyma is diffusely hypoattenuated in comparison to that of the spleen, most co mmonly seen in hepatic steatosis. This finding limits evaluation for hepatic masses. Several too smal l to accurately characterize 4 mm hypoattenuated hepatic lesion is marked on image 27 and stable from the prior. Cystic lesion measures 7 mm in segment 8.. No intrahepatic biliary ductal dilatation. No cholelithiasis. PANCREAS: Pancreatic duct is noted. Prominent within the pancreatic body measuring 2.2 mm. This is up per limits of normal size but not currently enlarged. This appears similar from the prior. SPLEEN: No significant abnormality is seen. ADRENALS: No significant abnormality is seen. KIDNEYS: Today's enhance and excrete symmetrically without hydronephrosis. FREE AIR: No free air is visualized. ADENOPATHY: No greater than 1 cm short axis lymph node is seen in the abdomen or pelvis. REPRODUCTIVE ORGANS: Prostate gland demonstrates central zone calcifications in the glandular heterog eneity. URINARY BLADDER: No significant abnormality is seen. OSSEOUS STRUCTURES: Intervertebral disc space narrowing is seen at L5-S1 with vacuum disc disease. M ild to moderate multilevel degenerative change of the visualized thoracolumbar spine is demonstrated as multiple Schmorl's nodes, anterior osteophytes, endplate sclerosis, intervertebral disc space narr owing and facet arthropathy. BOWEL: Incidentally noted descending duodenal diverticulum. Anastomotic site is seen of the sigmoid colon. Just distal to the anastomotic site there is focal narrowing. This likely represents colonic s pasm as was not as distinct on the exam of 09/06/2018. Few sigmoid colonic diverticula are seen withou t discrete pericolonic fat stranding. There are cluster loops of mildly dilated left mid abdomen smal l bowel containing fluid measuring up to 3.1 cm. Enteritis is suspected. No transition point. Appendi x is air-filled and within normal limits. OTHER: Moderate atherosclerosis of the abdominal aorta and its branches. IMPRESSION: 1. MULTIPLE LOOPS OF MILDLY DILATED LEFT MID ABDOMINAL SMALL BOWEL CONTAINING AIR. PRIMARY CONSIDERAT ION IS FOR INFLAMMATORY OR INFECTIOUS ENTERITIS. 2. SIGMOID AND DESCENDING COLONIC DIVERTICULA WITHOUT CT EVIDENCE OF ACUTE DIVERTICULITIS. 3. SIGMOID ANASTOMOTIC SITE IS SEEN WITH SIGMOID COLON FOCAL NARROWING JUST DISTAL TO THE ANASTOMOTIC SITE, POSSIBLY COLONIC SPASM THIS WAS NOT APPRECIATED ON THE PRIOR OF 09/14/2018. 4. PUNCTATE TOO SMALL TO ACCURATELY CHARACTERIZE HEPATIC LESION, SIMILAR TO THE PRIOR. HEPATIC STEATO SIS IS ALSO SEEN.
[2018-12-30 16:02] VITALS: BP 124/99; PULSE 83; TEMP 98.2
== END 2018-12-30 16:10 | disposition home or self-care (01) ==
LOC: EC 13:53
DX: R19.7 Diarrhea, unspecified (principal); R10.9 Unspecified abdominal pain; R11.0 Nausea; F41.9 Anxiety disorder, unspecified; F31.9 Bipolar disorder, unspecified; I10 Essential (primary) hypertension; F17.200 Nicotine dependence, unspecified, uncomplicated; Z79.899 Other long term (current) drug therapy; Z88.8 Allergy status to other drugs, medicaments and biological substances
CPT/HCPCS: 36415; 80053; 82150; 83605; 83690; 85025; 81003; 87040; 74177; 99284; 96374; 96375; J2405; J1170; Q9967

== ENCOUNTER → 2019-01-09 | Outpatient (CLI) | payer MEDICARE ==
--- NOTE | 2019-01-10 04:15 | MR ---
EXAMINATION TYPE: MR shoulder RT wo con DATE OF EXAM: 01/09/2019 COMPARISON: None HISTORY: Pain in right shoulder TECHNIQUE: Multiplanar, multisequence imaging of the right shoulder is performed without contrast. FINDINGS: There is some spurring at the AC joint. There is mild thickening and increased signal in the supraspi natus tendon. There is spurring and hypertrophy of the inferior glenoid labrum. There is some narrowi ng of the glenohumeral joint space. Subscapularis tendon is intact. Biceps tendon is intact. I see no evidence of a fracture. There is no subacromial impingement. IMPRESSION: Mild thickening and increased signal in the supraspinatus tendon consistent with at least a partial t ear. No retraction seen. 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 No significant subacromial im pingement.
== END | disposition home or self-care (01) ==
LOC: RADMRIMAIN 18:29
PROVIDERS: ATTEND Orthopaedic Surgery
DX: M75.121 Complete rotator cuff tear or rupture of right shoulder, not specified as traumatic (principal); M19.011 Primary osteoarthritis, right shoulder

== ENCOUNTER 2019-01-25 14:19 | Emergency (ER) | payer MEDICARE ==
[2019-01-25 14:24] VITALS: RESP 18
[2019-01-25] MEDS ORDERED: MORPHINE SULFATE 2 MG/ML SYRINGE IVP STA (15:58)
[2019-01-25 16:19] LABS: Basophils % (A) 0 %; Eosinophils # (A) 0.2 k/uL (0-0.7); Eosinophils % (A) 2 %; HCT 43.9 % (39.0-53.0); HGB 14.9 gm/dL (13.0-17.5); Lymphocytes # (A) 3.2 k/uL (1.0-4.8); Lymphocytes % (A) 28 %; MCH 29.2 pg (25.0-35.0); MCV 85.9 fL (80.0-100.0); Mean Platelet Volume 6.5; Monocytes # (A) 0.4 k/uL (0-1.0); Monocytes % (A) 3 %; Neutrophils # (A) 7.3 k/uL (1.3-7.7); Neutrophils % (A) 64 %; Platelet Count 334 k/uL (150-450); RBC 5.11 m/uL (4.30-5.90); RDW 13.3 % (11.5-15.5); WBC 11.3 k/uL (3.8-10.6)
[2019-01-25 16:30] LABS: African American GFR (CKD) >90 (>60 ml/min/1.73 sqM); Anion Gap 9 mmol/L; Blood Urea Nitrogen 10 mg/dL (9-20); Calcium 9.9 mg/dL (8.4-10.2); Carbon Dioxide 26 mmol/L (22-30); Chloride 105 mmol/L (98-107); Glucose 90 mg/dL (74-99); Non-African American GFR(CKD) >90 (>60 ml/min/1.73 sqM); Potassium 4.1 mmol/L (3.5-5.1); Sodium 140 mmol/L (137-145)
[2019-01-25] MEDS ORDERED: SULFAMETH-TMP DS STARTER PACK 2 TAB BTL PO STA (17:06)
--- NOTE | 2019-01-25 17:09 | US ---
EXAMINATION TYPE: US scrotum with doppler. Grayscale and color Doppler Duplex imaging performed of t keeley scrotum. DATE OF EXAM: 01/25/2019 COMPARISON: NONE CLINICAL HISTORY: Scrotal abscess. History of lump removed approximately one year ago, and there is a n oozing from the underside of the scrotal sac. EXAM MEASUREMENTS: TESTICLES: Right Testicle: 4.1 x 1.8 x 3.3 cm Left Testicle: 3.1 x 1.5 x 2.9 cm EPIDIDYMIS HEAD: Right Epididymis: 0.8 x 0.9 cm Left Epididymis: 0.8 x 0.7 cm. Doppler performed to assess for testicular vascularity; good bilateral color flow and waveforms are s een. There is no evidence of testicular torsion. Presence of hydroceles: small amount of fluid around both testicles Small epi head cyst on the right measuring 0.4 x 0.4 cm. Along the indicated area of palpable abnormality is an irregular hypoechoic area measuring approximat ramón 1.5 x 0.9 cm with suggestion of posterior acoustic enhancement. IMPRESSION: 1. Irregular hypoechoic area along the indicated area of palpable abnormality is suggestive of comple x fluid. 2. Testicles are within normal limits.
--- NOTE | 2019-01-25 17:11 | ED ---
Male Urogenital HPI - General Chief complaint: Urogenital Stated complaint: Post op wound Time Seen by Provider: 01/25/19 15:26 Source: patient Mode of arrival: ambulatory Limitations: no limitations - History of Present Illness Initial comments: 53yo male presenting to ED for scrotal abscess. Patient states that last year he had a scrotal abscess that was drained and had a subsequent dehiscence and secondary infection. Patient states he called came her for this. Patient states that he has been okay for the past 8-9 months however over the past week he felt a similar lump in the testicle. Most inferior aspect left sided, he states it has been draining now and the lump is almost gone. She denies fever or flulike symptoms significant testicular swelling or extension of redness from the scrotum. Patient denies DM history or any other complaints. Remaining ROS (- ). - Related Data Home Medications Medication Instructions Recorded Confirmed Cyclobenzaprine [Flexeril] 10 mg PO TID 11/01/17 12/30/18 Sertraline [Zoloft] 100 mg PO DAILY 03/22/18 12/30/18 traMADol HCL [Ultram] 50 mg PO Q6H 03/22/18 12/30/18 L.acidoph,Paracasei, B.lactis 1 cap PO DAILY 06/16/18 12/30/18 [Probiotic] lamoTRIgine [LaMICtal] 150 mg PO DAILY 12/01/18 12/30/18 Amitriptyline HCl [Elavil] 10 mg PO HS PRN 12/30/18 12/30/18 Previous Rx's Medication Instructions Recorded Ondansetron Odt [Zofran Odt] 4 mg PO Q8HR PRN #5 tab 12/30/18 Sulfamethox-Tmp 800-160Mg [Bactrim 2 tab PO Q12HR 10 Days #40 tab 01/25/19 DS 800-160 mg] Allergies Allergy/AdvReac Type Severity Reaction Status Date / Time clonidine [From Catapres] AdvReac Vomiting Verified 12/30/18 14:40 Review of Systems ROS Statement: Those systems with pertinent positive or pertinent negative responses have been documented in the HPI. ROS Other: All systems not noted in ROS Statement are negative. Past Medical History Past Medical History: Hypertension Additional Past Medical History / Comment(s): degenerative disc in back, diverticulosis. History of Any Multi-Drug Resistant Organisms: C-DIFF Date of last positivie culture/infection: 2008 MDRO Source:: stool Past Surgical History: Back Surgery, Bowel Resection, Orthopedic Surgery Additional Past Surgical History / Comment(s): COLONOSCOPY; 10 inches of colon removed from diverticulosis., pt had scrotal lump removed, PAIN CLINIC PROCEDURE, left rotator cuff Past Anesthesia/Blood Transfusion Reactions: No Reported Reaction Past Psychological History: Anxiety, Bipolar, Depression Smoking Status: Current every day smoker Past Alcohol Use History: None Reported Past Drug Use History: None Reported - Past Family History Mother Family Medical History: Congestive Heart Failure (CHF) General Exam - General Exam Comments Initial Comments: General: The patient is awake and alert, in no distress, and does not appear acutely ill. Eye: +3 m pupils are equal, round and reactive to light, extra-ocular movements are intact. No nystagmus. There is normal conjunctiva bilaterally. No signs of icterus. Ears, nose, mouth and throat: There are moist mucous membranes and no oral lesions. Neck: The neck is supple, there is no tenderness or JVD. Cardiovascular: There is a regular rate and rhythm. No murmur, rub or gallop is appreciated. Respiratory: Lungs are clear to auscultation, respirations are non-labored, breath sounds are equal. No wheezes, stridor, rales, or rhonchi. Gastrointestinal: Soft, non-distended, non-tender abdomen without masses or organomegaly noted. There is no rebound or guarding present. Vertical lie of the testicles with cremasterics reflex and intact no diffuse redness of the chest was however active. Her portion of the scrotum there is a small area of induration with a small puncture wound draining fluid that is purulent with some serosanguineous fluid, minimal drainage obtained. No large abscess appreciated or perineal redness. Musculoskeletal: Normal ROM, no tenderness. Strength 5/5. Sensation intact. Radial pulses equal bilaterally 2+. Neurological: A&O x 3. CN II-XII intact grossly, There are no obvious motor or sensory deficits. Coordination appears grossly intact. Speech is normal. Skin: Skin is warm and dry and no rashes. Psychiatric: Cooperative, appropriate mood & affect, normal judgment. Limitations: no limitations Course Vital Signs 01/25/19 01/25/19 14:21 17:40 Temperature 99 F 98.7 F Pulse Rate 85 82 Respiratory 18 18 Rate Blood Pressure 163/101 152/90 O2 Sat by Pulse 99 99 Oximetry Procedures - Incision & Drainage Consent Obtained: verbal consent Indication: scrotal wall abscess Site: scrotum Size (cm): 1 I&D Cleaning Method: Iodine Needle Aspiration Performed?: Yes (small amount of purulent drainage) Culture Obtained?: No Patient Tolerated Procedure: well, no complications Medical Decision Making - Medical Decision Making 53-year-old male presenting for possible scrotal abscess. Patient states she has had one the past. Patient states he noticed a lump that was draining. I reexamined there is no large area of fluctuance. There is an opening with small amount of purulent drainage. No significant surrounding cellulitis. Mild leukocytosis. Otherwise patient appears well and nontoxic. Patient advised them attending provider. Needle aspiration was attempted minimal purulent drainage obtained. No evidence of significant intrascrotal communication with the abscess. Patient has seen Dr. Funk in the past patient requesting a new recommendation for urologist as he does not wish to see Dr. Funk, Dr. Shahid was provided for f/u. Dr. Gates recommend 2 DS Bactrim and discharge home. Patient provided initial dose and discharge appearing well with strict return parameters. - Lab Data Result diagrams: 01/25/19 16:10 01/25/19 16:10 Lab Results 01/25/19 01/25/19 Range/Units 16:10 16:10 WBC 11.3 H (3.8-10.6) k/uL RBC 5.11 (4.30-5.90) m/uL Hgb 14.9 (13.0-17.5) gm/dL Hct 43.9 (39.0-53.0) % MCV 85.9 (80.0-100.0) fL MCH 29.2 (25.0-35.0) pg MCHC 34.0 (31.0-37.0) g/dL RDW 13.3 (11.5-15.5) % Plt Count 334 (150-450) k/uL Neutrophils % 64 % Lymphocytes % 28 % Monocytes % 3 % Eosinophils % 2 % Basophils % 0 % Neutrophils # 7.3 (1.3-7.7) k/uL Lymphocytes # 3.2 (1.0-4.8) k/uL Monocytes # 0.4 (0-1.0) k/uL Eosinophils # 0.2 (0-0.7) k/uL Basophils # 0.0 (0-0.2) k/uL Sodium 140 (137-145) mmol/L Potassium 4.1 (3.5-5.1) mmol/L Chloride 105 (98-107) mmol/L Carbon Dioxide 26 (22-30) mmol/L Anion Gap 9 mmol/L BUN 10 (9-20) mg/dL Creatinine 0.91 (0.66-1.25) mg/dL Est GFR (CKD-EPI)AfAm >90 (>60 ml/min/1.73 sqM) Est GFR (CKD-EPI)NonAf >90 (>60 ml/min/1.73 sqM) Glucose 90 (74-99) mg/dL Calcium 9.9 (8.4-10.2) mg/dL Disposition Clinical Impression: Scrotal wall abscess Disposition: HOME SELF-CARE Condition: Good Instructions (If sedation given, give patient instructions): Abscess Incision and Drainage (ED), Abscess (ED) Prescriptions: Sulfamethox-Tmp 800-160Mg [Bactrim DS 800-160 mg] 2 tab PO Q12HR 10 Days #40 tab Is patient prescribed a controlled substance at d/c from ED?: No Referrals: Florencio Goodman MD [Primary Care Provider] - 1-2 days Luciano Barrientos MD [STAFF PHYSICIAN] - 1-2 days Time of Disposition: 17:20
[2019-01-25] MEDS ORDERED: ACET/COD 300 MG/30 MG STARTER PACK 6 TAB BTL PO STA (17:21)
[2019-01-25 17:41] VITALS: BP 152/90; PULSE 82; TEMP 98.7
== END 2019-01-25 17:41 | disposition home or self-care (01) ==
LOC: EC 14:19
DX: N49.2 Inflammatory disorders of scrotum (principal); D72.829 Elevated white blood cell count, unspecified; F41.9 Anxiety disorder, unspecified; F31.9 Bipolar disorder, unspecified; M51.36 Other intervertebral disc degeneration, lumbar region; I10 Essential (primary) hypertension; F17.200 Nicotine dependence, unspecified, uncomplicated; Z79.891 Long term (current) use of opiate analgesic; Z79.899 Other long term (current) drug therapy; Z98.890 Other specified postprocedural states; Z88.8 Allergy status to other drugs, medicaments and biological substances
CPT/HCPCS: 36415; 80048; 85025; 93975; 76870; 96374; 99284; 55100; J2270

== ENCOUNTER → 2019-02-02 | Outpatient (CLI) | payer MEDICARE, OTHER ==
[2019-02-02 11:46] LABS: Basophils % (A) 1 %; Eosinophils # (A) 0.3 k/uL (0-0.7); Eosinophils % (A) 5 %; HCT 43.7 % (39.0-53.0); HGB 14.2 gm/dL (13.0-17.5); Lymphocytes # (A) 1.2 k/uL (1.0-4.8); Lymphocytes % (A) 23 %; MCH 28.7 pg (25.0-35.0); MCHC 32.5 g/dL (31.0-37.0); MCV 88.5 fL (80.0-100.0); Mean Platelet Volume 6.9; Monocytes # (A) 0.3 k/uL (0-1.0); Monocytes % (A) 6 %; Neutrophils # (A) 3.3 k/uL (1.3-7.7); Neutrophils % (A) 62 %; Platelet Count 283 k/uL (150-450); RBC 4.93 m/uL (4.30-5.90); RDW 13.2 % (11.5-15.5); WBC 5.3 k/uL (3.8-10.6)
[2019-02-02 11:56] LABS: Potassium 4.6 mmol/L (3.5-5.1)
== END | disposition home or self-care (01) ==
LOC: LABPAT 10:37
PROVIDERS: ATTEND Orthopaedic Surgery
DX: Z01.818 Encounter for other preprocedural examination (principal); M75.41 Impingement syndrome of right shoulder
CPT/HCPCS: 36415; 80051; 85025; 93005

== ENCOUNTER 2019-02-21 11:39 | Emergency (ER) | payer MEDICARE, OTHER ==
[2019-02-21 12:20] VITALS: BP 154/90; PULSE 91; RESP 16; TEMP 97.5
[2019-02-21] MEDS ORDERED: HYDROmorphone 1 MG/ML 1 ML SYRINGE IM STA (12:34)
--- NOTE | 2019-02-21 12:39 | XR ---
EXAMINATION TYPE: XR shoulder complete RT DATE OF EXAM: 02/21/2019 COMPARISON: 12/23/2018 HISTORY: 53-year-old male with pain TECHNIQUE: 3 views FINDINGS: Mild to moderate degenerative joint space narrowing with moderate marginal spurring and capsular hype rtrophy at the acromioclavicular joint. Some sclerosis and cystic change at the greater tuberosity. S ubacromial space is preserved. No acute fracture, subluxation, or dislocation. IMPRESSION: 1. Moderate AC joint OA. 2. Some bony changes at the greater tuberosity suggest chronic rotator cuff tendinopathy. 3. No acute osseous abnormality seen.
[2019-02-21] MEDS ORDERED: ACET/COD 300 MG/30 MG STARTER PACK 6 TAB BTL PO STA (12:45)
--- NOTE | 2019-02-21 12:46 | ED ---
General Adult HPI - General Chief complaint: Extremity Injury, Upper Stated complaint: rt shoulder pain Time Seen by Provider: 02/21/19 12:18 Source: patient, RN notes reviewed Mode of arrival: ambulatory Limitations: no limitations - History of Present Illness Initial comments: Patient is a pleasant 53-year-old male presenting to the emergency Department with complaints of right shoulder discomfort. Patient has chronic shoulder problems and is scheduled for surgery on Saturday. Patient has known rotator cuff problems as well as spurs and arthritis. Patient states he was trying to move an object yesterday when it started to slip. Patient reached forward with his right arm with sudden increase in discomfort of the right shoulder. Discomfort greatly increases with movement. No other area of injury or concern. - Related Data Home Medications Medication Instructions Recorded Confirmed Cyclobenzaprine [Flexeril] 10 mg PO TID 11/01/17 02/13/19 Sertraline [Zoloft] 100 mg PO DAILY 03/22/18 02/13/19 traMADol HCL [Ultram] 50 mg PO Q4HR PRN 03/22/18 02/13/19 lamoTRIgine [LaMICtal] 150 mg PO DAILY 12/01/18 02/13/19 Allergies Allergy/AdvReac Type Severity Reaction Status Date / Time clonidine [From Catapres] AdvReac Vomiting Verified 02/21/19 12:17 Review of Systems ROS Statement: Those systems with pertinent positive or pertinent negative responses have been documented in the HPI. ROS Other: All systems not noted in ROS Statement are negative. Constitutional: Denies: fever Eyes: Denies: eye pain ENT: Denies: ear pain Respiratory: Denies: cough Cardiovascular: Denies: chest pain Endocrine: Denies: fatigue Gastrointestinal: Denies: abdominal pain Genitourinary: Denies: dysuria Musculoskeletal: Reports: as per HPI, arthralgia. Denies: back pain Skin: Denies: rash Neurological: Denies: weakness Past Medical History Past Medical History: Hypertension Additional Past Medical History / Comment(s): degenerative disc in back, diverticulosis. History of Any Multi-Drug Resistant Organisms: C-DIFF Date of last positivie culture/infection: 2008 MDRO Source:: stool Past Surgical History: Back Surgery, Bowel Resection, Orthopedic Surgery Additional Past Surgical History / Comment(s): COLONOSCOPY; 10 inches of colon removed from diverticulosis., pt had scrotal lump removed, PAIN CLINIC PROCEDURE, left rotator cuff Past Anesthesia/Blood Transfusion Reactions: No Reported Reaction Past Psychological History: Anxiety, Bipolar, Depression Smoking Status: Current every day smoker Past Alcohol Use History: None Reported Past Drug Use History: None Reported - Past Family History Mother Family Medical History: Congestive Heart Failure (CHF) General Exam Limitations: no limitations General appearance: alert, in no apparent distress Head exam: Present: normocephalic Eye exam: Present: normal appearance Neck exam: Present: normal inspection. Absent: tenderness Respiratory exam: Present: normal lung sounds bilaterally Cardiovascular Exam: Present: regular rate, normal rhythm Expanded Peripheral pulses: 2+: Radial (R) Extremities exam: Present: tenderness (Mild to moderate tenderness anterior ri ght shoulder), other (Lungs and range of motion at the right shoulder secondary to pain. Distally the extremity is neurovascular intact. Good vehicle and equipment cleaner strength. Good sensation.) Neurological exam: Present: alert. Absent: motor sensory deficit Psychiatric exam: Present: normal affect, normal mood Skin exam: Present: normal color Course Vital Signs 02/21/19 12:15 Temperature 97.5 F L Pulse Rate 91 Respiratory 16 Rate Blood Pressure 154/90 O2 Sat by Pulse 98 Oximetry Medical Decision Making - Medical Decision Making Patient revaluate and updated - Radiology Data Radiology results: image reviewed (Right shoulder x-ray does show arthritis at the acromioclavicular joint. Suspected rotator cuff tendinopathy. No acute abdomen abnormality.) Disposition Clinical Impression: Strain of shoulder Disposition: HOME SELF-CARE Condition: Stable Instructions (If sedation given, give patient instructions): Rotator Cuff Injury (ED), Shoulder Sprain (ED) Additional Instructions: Please follow-up with orthopedic doctor Saturday as planned. Return for increased pain, swelling or weakness, worsening symptoms or other concerns. Is patient prescribed a controlled substance at d/c from ED?: No Referrals: Florencio Goodman MD [Primary Care Provider] - 1-2 days Jayjay Ortega DO [Doctor of Osteopathic Medicine] - 1-2 days Time of Disposition: 12:45
== END 2019-02-21 12:53 | disposition home or self-care (01) ==
LOC: EC 11:39
DX: S46.911A Strain of unspecified muscle, fascia and tendon at shoulder and upper arm level, right arm, initial encounter (principal); F31.9 Bipolar disorder, unspecified; F41.9 Anxiety disorder, unspecified; I10 Essential (primary) hypertension; F17.200 Nicotine dependence, unspecified, uncomplicated; Z79.899 Other long term (current) drug therapy; Z88.8 Allergy status to other drugs, medicaments and biological substances; X58.XXXA Exposure to other specified factors, initial encounter
CPT/HCPCS: 73030; 99283; 96372; J1170

== ENCOUNTER 2019-02-23 11:00 | Day surgery (SDC) | payer MEDICARE, OTHER ==
[2019-02-13 11:58] VITALS: BMI 31.4
--- NOTE | 2019-02-22 11:11 | HP ---
HISTORY AND PHYSICAL REASON FOR ADMISSION: Surgery scheduled for 02/23/2019 HISTORY OF PRESENT ILLNESS: Medardo Galan is a 53-year-old patient seen with progressive right shoulder pain. We discussed options for treatment. He elected to proceed with arthroscopy. Consent was obtained. PAST MEDICAL HISTORY: Depression. PAST SURGICAL HISTORY: Bowel resection, laminectomy. MEDICATIONS: Buspirone, Lamictal, Zoloft, tramadol. ALLERGIES: CATAPRES. SOCIAL HISTORY: Smokes 1 pack of cigarettes daily. PHYSICAL EXAMINATION: Evaluation of the right shoulder flexion 60, abduction 50, external rotation 20 with weakness, tenderness along the anterior lateral acromion rotator cuff insertion site. Impingement sign is positive at 70 degrees. Drop-arm sign is positive. Distal neurovascular exam is intact. RADIOGRAPHS: Radiographs of the right shoulder revealed a type 2 anterior acromion, evidence for acromioclavicular joint osteoarthritis. A right shoulder MRI revealed acromioclavicular joint osteoarthritis and partial rotator cuff tendon tear. IMPRESSION: 1. Right shoulder impingement with rotator cuff tear. 2. Right shoulder acromioclavicular joint osteoarthritis. 3. Depression. 4. Tobacco use. PLAN: Right shoulder arthroscopy with subacromial decompression, arthroscopic rotator cuff repair, Alyse procedure, biceps tenotomy and debridement. Surgery scheduled for 02/23/2019. MMODL / IJN: [id number] /
[~2019-02-23 11:00] MED LIST changes: +DEXAMETHASONE SOD PHOSPHATE 10 MG/ML 1 ML VIAL IV ONE; -LACTATED RINGERS 1,000 ML IV SCH; +LIDOCAINE 1% 20 ML VIAL (10MG/ML) FOR IV START INTRADERMA PRN; +MIDAZOLAM 2 MG/2 ML VIAL IV PRN; +fentaNYL (PF) 50 MCG/ML 2 ML AMP IV PRN; +fentaNYL (PF) 50 MCG/ML 2 ML AMP IVP PRN
[2019-02-23] MEDS: LACTATED RINGERS 1,000 ML IV SCH ×2 (11:13→12:34)
[2019-02-23] MEDS ORDERED: ONDANSETRON 4 MG/2 ML VIAL IVP ONE (11:30)
[2019-02-23] MEDS ORDERED: DEXAMETHASONE SOD PHOSPHATE 10 MG/ML 1 ML VIAL IV ONE (11:31)
[2019-02-23] MEDS ORDERED: MIDAZOLAM 2 MG/2 ML VIAL IV ONE (12:00)
[2019-02-23] MEDS ORDERED: fentaNYL (PF) 50 MCG/ML 2 ML AMP IV ONE (12:00)
[2019-02-23] MEDS ORDERED: PROPOFOL 10 MG/ML 20 ML VIAL IV ONE (12:34)
[2019-02-23] MEDS ORDERED: MIDAZOLAM 2 MG/2 ML VIAL ONE (12:34)
[2019-02-23] MEDS ORDERED: fentaNYL (PF) 50 MCG/ML 2 ML AMP ONE (12:34)
[2019-02-23] MEDS ORDERED: SUCCINYLCHOLINE CHLORIDE 100 MG/5 ML SYR IV ONE (12:34)
[2019-02-23] MEDS ORDERED: ROPIVACAINE 5 MG/ML 30 ML VIAL ONE (12:34)
--- NOTE | 2019-02-23 14:04 | P.OP ---
Date of Procedure: 02/23/19 Preoperative Diagnosis: Right shoulder impingement Postoperative Diagnosis: 1. Right shoulder rotator cuff tear 2. Right shoulder impingement 3. Right shoulder acromioclavicular joint osteoarthritis 4. Right shoulder partial long head biceps tendon tear Procedure(s) Performed: 1. Right shoulder arthroscopic rotator cuff repair 2. Right shoulder arthroscopic subacromial decompression 3. Right shoulder arthroscopic Alyse procedure 4. Right shoulder arthroscopic biceps tenotomy Implants: 14.75 Arthrex swivel lock anchor Anesthesia: GETA, regional (Interscalene block) Surgeon: Jayjay Ortega Contact Assembler #1: Gregorio Dias Estimated Blood Loss (ml): 11 Pathology: none sent Condition: stable Disposition: PACU Indications for Procedure: 53-year-old patient seen with progressive right shoulder pain. After treatment options were discussed, he elected to proceed with arthroscopy. Operative Findings: see description of procedure Description of Procedure: Patient underwent an interscalene block by department of anesthesia for postoperative pain management. The patient was then taken to the operative suite. The patient underwent a general anesthetic by the department of anesthesia. The patient was placed into a lateral position and secured. There was appropriate padding of the bony prominence. Right shoulder was then prepped and draped in normal sterile orthopedic fashion. We placed the extremity in 10 pounds of longitudinal traction. A posterior incision was now made for a posterior working portal site. The trocar and cannula were inserted into the glenohumeral joint. Arthroscopy was initiated. Spinal needle was now inserted anteriorly, to ascertain the anterior working portal site. An incision was now made in that area, a trocar was inserted followed by a probe. There was partial tearing long head biceps tendon. There was a rotator cuff tear could visualize from glenohumeral side. There were mild grade 1 chondromalacia changes of glenohumeral joint. The labrum was probed and found to be stable. I performed an arthroscopic biceps tenotomy. The residual labrum again was stable. Instruments were now removed from glenohumeral joint. Utilizing the posterior working portal site, the trocar and cannula were inserted into the subacromial space. Arthroscopy initiated. I made an incision 2 fingerbreadths lateral to the acromion. I introduced my trocar followed by my ArthroCare ablator. I now began ablating thick subacromial bursal tissue, which exposed the undersurface of the anterior acromion. There was diminished s ubacromial space. There was a very prominent anterior acromion. A motorized bur was introduced and a subacromial decompression was performed. I also excised some osteophytes off the inferior aspect of the distal clavicle. The AC joint was visualized and noted to be fairly arthritic. The motorized bur was introduced in the anterior portal site and a Alyse procedure was performed without difficulty, decompressing the AC joint nicely. I turned my attention to the rotator cuff. There was a 11.5 cm rotator cuff tear noted along the anterior aspect distal supraspinatus. I debrided the margins getting down to stable tendon tissue. I abraded the footprint with a motorized bur. I passed 2 everted mattress sutures through good bites of rotator cuff tendon with the assistance of Jef DUNCAN. I punched the hole at the abraded footprint area. We now passed all 4 limbs of suture through the eyelet of a 4.75 Arthrex swivel lock anchor. I now introduced the eyelet into our pre-punch hole. I held it in position while Jef DUNCAN tensioned the sutures and then deployed anchor. There was good fixation of anchor. There was good compression of the tendon along the footprint area. All residual suture limbs were now clipped. We had good compression of the tendon along the entire footprint. I injected 1 mL Renyte intra-articular. Instruments now removed from the portal sites. All portal sites were approximated with nylon suture. Sterile dressings were applied followed by a shoulder immobilizer. Gregorio DUNCAN assisted in this complex case. The patient was awakened, transferred to a bed, and taken to recovery in stable condition.
[2019-02-23 14:05] VITALS: TEMP 96.9
[2019-02-23] MEDS ORDERED: HYDROmorphone 1 MG/ML 1 ML SYRINGE IVP ONE ×4 (14:20→14:49)
[2019-02-23 15:40] VITALS: RESP 20
[2019-02-23 16:13] VITALS: BP 148/92; PULSE 75
--- NOTE | 2019-02-25 12:40 | P.ANPRN ---
Procedure Note - Anesthesia - Nerve Block Performed Right Interscalene Single Time Out Performed: Yes Date of Procedure: 02/23/19 Procedure Start Time: 12:03 Location of Patient: PreOp Indication: Acute Post-Operative Pain, Requested by Surgeon Specifically requested for management of pain by DrCaro: Jayjay Ortega Sedation Type: Sedate with meaningful contact maintained Preparation: Sterile Prep Position: Supine Catheter: None Needle Types: Pajunk Needle Gauge: 21 Ultrasound used to visualize needle placement: Yes Ultrasound used to observe medication spread: Yes Injectate: 0.5% Ropivacaine (see comment for volume) (20 cc) Blood Aspirated: No Pain Paresthesia on Injection Noted: No Resistance on Injection: Normal Image Stored and Saved: Yes Events: Uneventful and Well Tolerated
== END 2019-02-23 16:15 | disposition home or self-care (01) ==
LOC: OR 11:00
PROVIDERS: ATTEND Orthopaedic Surgery
DX: M25.811 Other specified joint disorders, right shoulder (principal); M19.011 Primary osteoarthritis, right shoulder; M75.101 Unspecified rotator cuff tear or rupture of right shoulder, not specified as traumatic
CPT/HCPCS: 64415; 76942; 29824; 29826; 29827; 29828; C1713; Q4212; J2250; J1100; J2405; J3010; J1170; J2795; J0330; J2704

== ENCOUNTER 2019-02-24 00:21 | Observation (INO) | payer MEDICARE, OTHER ==
[2019-02-24] MEDS ORDERED: HYDROmorphone 1 MG/ML 1 ML SYRINGE IVP STA (01:06)
[2019-02-24 01:17] LABS: Basophils # (A) 0.1 k/uL (0-0.2); Basophils % (A) 1 %; Eosinophils % (A) 0 %; HCT 43.7 % (39.0-53.0); HGB 14.2 gm/dL (13.0-17.5); Lymphocytes # (A) 1.4 k/uL (1.0-4.8); Lymphocytes % (A) 10 %; MCH 28.4 pg (25.0-35.0); MCHC 32.4 g/dL (31.0-37.0); MCV 87.7 fL (80.0-100.0); Mean Platelet Volume 6.9; Monocytes # (A) 0.7 k/uL (0-1.0); Monocytes % (A) 5 %; Neutrophils # (A) 11.6 k/uL (1.3-7.7); Neutrophils % (A) 83 %; Platelet Count 346 k/uL (150-450); RBC 4.98 m/uL (4.30-5.90); RDW 13.1 % (11.5-15.5)
[2019-02-24 01:27] LABS: ALT 16 U/L (4-49); AST 24 U/L (17-59); African American GFR (CKD) >90 (>60 ml/min/1.73 sqM); Albumin 4.3 g/dL (3.5-5.0); Alkaline Phosphatase 65 U/L (38-126); Anion Gap 8 mmol/L; Blood Urea Nitrogen 13 mg/dL (9-20); Calcium 9.8 mg/dL (8.4-10.2); Carbon Dioxide 26 mmol/L (22-30); Chloride 105 mmol/L (98-107); Glucose 200 mg/dL (74-99); Magnesium 1.8 mg/dL (1.6-2.3); Non-African American GFR(CKD) >90 (>60 ml/min/1.73 sqM); Potassium 4.1 mmol/L (3.5-5.1); Sodium 139 mmol/L (137-145); Total Bilirubin 0.4 mg/dL (0.2-1.3); Total Protein 7.2 g/dL (6.3-8.2)
--- NOTE | 2019-02-24 01:28 | XR ---
EXAMINATION TYPE: XR chest 2V DATE OF EXAM: 02/24/2019 COMPARISON: 06/18/2018 HISTORY: Chest pain TECHNIQUE: FINDINGS: There is mild elevation of the right diaphragm. Left lung is clear. There is no heart failu re. Heart size is normal. There are chest leads. IMPRESSION: There is mild elevation of the right diaphragm that is new compared to old exam. This cou ld relate to partial paralysis. Normal heart.
--- NOTE | 2019-02-24 01:34 | ED ---
General Adult HPI <Medardo Goodwin - Last Filed: 02/24/19 04:21> - General Source: patient, family Mode of arrival: ambulatory Limitations: no limitations <Angella Garay - Last Filed: 02/24/19 05:42> - General Chief complaint: Chest Pain Stated complaint: Chest Heaviness, shoulder pain Time Seen by Provider: 02/24/19 00:45 - History of Present Illness Initial comments: 53-year-old male patient presents to the emergency department today for evaluation of chest pressure and shortness of breath. States he is having associated nausea as well. Patient underwent right rotator cuff surgical repair this morning with Dr. Ortega. States that his nerve block has worn off and he is having excruciating pain to the right shoulder. Patient states that he also developed chest pressure and shortness of breath shortly after. He denies any history of cardiac disease. Denies any hypertension, hyperlipidemia, or diabetes. He does admit to smoking cigarettes. He states that has a history of enlarged heart but denies any other cardiac disease in his family. States he did take a [place] 7.5/325 mg around 11 PM, states it did not help. Patient denies any recent rash, fever, chills, abdominal pain, diarrhea, constipation, back pain, numbness, tingling, dizziness, weakness, hematuria, dysuria, urinary urgency, urinary frequency, headache, visual changes, or any other complaints. (Angella Garay) - Related Data Home Medications Medication Instructions Recorded Confirmed Cyclobenzaprine [Flexeril] 10 mg PO TID 11/01/17 02/24/19 Sertraline [Zoloft] 100 mg PO DAILY 03/22/18 02/24/19 traMADol HCL [Ultram] 50 mg PO Q4HR PRN 03/22/18 02/24/19 lamoTRIgine [LaMICtal] 150 mg PO DAILY 12/01/18 02/24/19 Previous Rx's Medication Instructions Recorded HYDROcodone/APAP 7.5-325MG [[place] 1 each PO Q6HR PRN #28 tab 02/23/19 7.5] Allergies Allergy/AdvReac Type Severity Reaction Status Date / Time clonidine [From Catapres] AdvReac Vomiting Verified 02/24/19 05:34 Review of Systems ROS Other: All systems not noted in ROS Statement are negative. <Medardo Goodwin - Last Filed: 02/24/19 04:21> ROS Other: All systems not noted in ROS Statement are negative. <Angella Garay - Last Filed: 02/24/19 05:42> ROS Statement: Those systems with pertinent positive or pertinent negative responses have been documented in the HPI. Past Medical History Past Medical History: Hypertension Additional Past Medical History / Comment(s): degenerative disc in back, diverticulosis. History of Any Multi-Drug Resistant Organisms: C-DIFF Date of last positivie culture/infection: 2008 MDRO Source:: stool Past Surgical History: Back Surgery, Bowel Resection, Orthopedic Surgery Additional Past Surgical History / Comment(s): COLONOSCOPY; 10 inches of colon removed from diverticulosis., pt had scrotal lump removed, PAIN CLINIC PROCEDURE, left rotator cuff Past Anesthesia/Blood Transfusion Reactions: No Reported Reaction Past Psychological History: Anxiety, Bipolar, Depression Smoking Status: Current every day smoker Past Alcohol Use History: None Reported Past Drug Use History: None Reported - Past Family History Mother Family Medical History: Congestive Heart Failure (CHF) <Angella Garay - Last Filed: 02/24/19 05:42> General Exam Limitations: no limitations General appearance: alert, in no apparent distress, other (This is a well- developed, well-nourished adult male patient in no acute distress. Vital signs upon presentation are temperature 98.1F, pulse 109, respirations 20, blood pressure 174/101, pulse ox 96% on room air.) Eye exam: Present: normal appearance, PERRL, EOMI. Absent: scleral icterus, conjunctival injection, periorbital swelling ENT exam: Present: normal exam, normal oropharynx, mucous membranes moist Respiratory exam: Present: normal lung sounds bilaterally. Absent: respiratory distress, wheezes, rales, rhonchi, stridor Cardiovascular Exam: Present: regular rate, normal rhythm, normal heart sounds. Absent: systolic murmur, diastolic murmur, rubs, gallop, clicks GI/Abdominal exam: Present: soft, normal bowel sounds. Absent: distended, tenderness, guarding, rebound, rigid Extremities exam: Present: normal inspection, full ROM, normal capillary refill, other (Brad noted to the right shoulder. No evidence for drainage. Skin to the arm and hand is pink, warm, dry. Cap refills less than 3 seconds. Radial pulses are 2+ and equal bilaterally. There is mild general swelling noted to the right arm.). Absent: tenderness, pedal edema, joint swelling, calf tenderness Neurological exam: Present: alert, oriented X3, CN II-XII intact Psychiatric exam: Present: normal affect, normal mood Skin exam: Present: warm, dry, intact, normal color. Absent: rash <Angella Garay - Last Filed: 02/24/19 05:42> Course Vital Signs 02/24/19 02/24/19 02/24/19 00:25 01:03 02:16 Temperature 98.1 F Pulse Rate 109 H 81 Pulse Rate [ 101 H Apical] Respiratory 20 18 Rate Blood Pressure 174/101 128/81 O2 Sat by Pulse 96 98 Oximetry 02/24/19 04:00 Temperature Pulse Rate 78 Pulse Rate [ Apical] Respiratory 18 Rate Blood Pressure 126/78 O2 Sat by Pulse 100 Oximetry EKG Findings - EKG Comments: EKG Findings:: EKG obtained at 00 38 shows normal sinus rhythm with a ventricular rate of 88, W[place] interval 148, QR sikh 84, QT 334, QTC 404. No evidence of ST elevation or depression. <Angella Garay - Last Filed: 02/24/19 05:42> Medical Decision Making - Lab Data Result diagrams: 02/24/19 00:55 02/24/19 00:55 <Medardo Goodwin - Last Filed: 02/24/19 04:21> - Lab Data Result diagrams: 02/24/19 00:55 02/24/19 00:55 - Radiology Data Radiology results: report reviewed, image reviewed <Angella Garay - Last Filed: 02/24/19 05:42> - Medical Decision Making I saw this patient in conjunction with the physician materials assistant. I performed independent history and physical exam. Agree with case management. (Medardo Goodwin) 53-year-old male patient presents to the emergency department today for evaluation of chest pain increased and right shoulder pain. He did undergo a right rotator cuff repair this morning with Dr. Nataliia García. Had increase in his right shoulder pain but then started having chest pressure and shortness of breath. Physical examination is unremarkable. Dressing was intact. Labs reviewed and did reveal normal troponin. Chest x-ray unremarkable. Given patient's risk factors which include possible undiagnosed diabetes, cigarette tobacco use, and a possible family history of cardiac disease will admit to the hospital for observation and cardiology evaluation. He is agreeable this plan. (Angella Garay) - Lab Data Lab Results 02/24/19 02/24/19 02/24/19 Range/Units 00:55 00:55 00:55 WBC 14.0 H (3.8-10.6) k/uL RBC 4.98 (4.30-5.90) m/uL Hgb 14.2 (13.0-17.5) gm/dL Hct 43.7 (39.0-53.0) % MCV 87.7 (80.0-100.0) fL MCH 28.4 (25.0-35.0) pg MCHC 32.4 (31.0-37.0) g/dL RDW 13.1 (11.5-15.5) % Plt Count 346 (150-450) k/uL Neutrophils % 83 % Lymphocytes % 10 % Monocytes % 5 % Eosinophils % 0 % Basophils % 1 % Neutrophils # 11.6 H (1.3-7.7) k/uL Lymphocytes # 1.4 (1.0-4.8) k/uL Monocytes # 0.7 (0-1.0) k/uL Eosinophils # 0.0 (0-0.7) k/uL Basophils # 0.1 (0-0.2) k/uL PT 10.3 (9.0-12.0) sec INR 1.0 (<1.2) APTT 23.8 (22.0-30.0) sec Sodium 139 (137-145) mmol/L Potassium 4.1 (3.5-5.1) mmol/L Chloride 105 (98-107) mmol/L Carbon Dioxide 26 (22-30) mmol/L Anion Gap 8 mmol/L BUN 13 (9-20) mg/dL Creatinine 0.90 (0.66-1.25) mg/dL Est GFR (CKD-EPI)AfAm >90 (>60 ml/min/1.73 sqM) Est GFR (CKD-EPI)NonAf >90 (>60 ml/min/1.73 sqM) Glucose 200 H (74-99) mg/dL Calcium 9.8 (8.4-10.2) mg/dL Magnesium 1.8 (1.6-2.3) mg/dL Total Bilirubin 0.4 (0.2-1.3) mg/dL AST 24 (17-59) U/L ALT 16 (4-49) U/L Alkaline Phosphatase 65 (38-126) U/L Troponin I (0.000-0.034) ng/mL Total Protein 7.2 (6.3-8.2) g/dL Albumin 4.3 (3.5-5.0) g/dL 02/24/19 Range/Units 00:55 WBC (3.8-10.6) k/uL RBC (4.30-5.90) m/uL Hgb (13.0-17.5) gm/dL Hct (39.0-53.0) % MCV (80.0-100.0) fL MCH (25.0-35.0) pg MCHC (31.0-37.0) g/dL RDW (11.5-15.5) % Plt Count (150-450) k/uL Neutrophils % % Lymphocytes % % Monocytes % % Eosinophils % % Basophils % % Neutrophils # (1.3-7.7) k/uL Lymphocytes # (1.0-4.8) k/uL Monocytes # (0-1.0) k/uL Eosinophils # (0-0.7) k/uL Basophils # (0-0.2) k/uL PT (9.0-12.0) sec INR (<1.2) APTT (22.0-30.0) sec Sodium (137-145) mmol/L Potassium (3.5-5.1) mmol/L Chloride (98-107) mmol/L Carbon Dioxide (22-30) mmol/L Anion Gap mmol/L BUN (9-20) mg/dL Creatinine (0.66-1.25) mg/dL Est GFR (CKD-EPI)AfAm (>60 ml/min/1.73 sqM) Est GFR (CKD-EPI)NonAf (>60 ml/min/1.73 sqM) Glucose (74-99) mg/dL Calcium (8.4-10.2) mg/dL Magnesium (1.6-2.3) mg/dL Total Bilirubin (0.2-1.3) mg/dL AST (17-59) U/L ALT (4-49) U/L Alkaline Phosphatase (38-126) U/L Troponin I <0.012 (0.000-0.034) ng/mL Total Protein (6.3-8.2) g/dL Albumin (3.5-5.0) g/dL - Radiology Data Two-view x-ray of the chest is obtained. Report was reviewed in its entirety. Impression by Dr. Rosenthal shows mild elevation of the right diaphragm that is new compared to old exam. This could relate to partial paralysis. Normal heart. (Angella Garay) Disposition <Medardo Goodwin - Last Filed: 02/24/19 04:21> Decision to Admit Reason: Admit from EC Decision Date: 02/24/19 Decision Time: 05:00 <Angella Garay - Last Filed: 02/24/19 05:42> Clinical Impression: Chest pain, Right shoulder pain Disposition: ADMITTED IP TO THIS [facility] Condition: Serious
[2019-02-24 01:37] LABS: Partial Thromboplastin Time 23.8 sec (22.0-30.0); Prothrombin Time 10.3 sec (9.0-12.0)
[2019-02-24] MEDS ORDERED: ONDANSETRON 4 MG/2 ML VIAL IVP STA (02:07)
[2019-02-24 02:17] VITALS: RESP 18
[2019-02-24] MEDS ORDERED: HYDROmorphone 0.5 MG/0.5 ML SYRINGE IVP STA (03:53)
[2019-02-24] MEDS ORDERED: ONDANSETRON 4 MG/2 ML VIAL IVP PRN (04:59)
[2019-02-24] MEDS ORDERED: NALOXONE 0.4 MG/ML 1 ML VIAL IV PRN (04:59)
[2019-02-24] MEDS: HYDROmorphone 1 MG/ML 1 ML SYRINGE IVP PRN ×6 (05:46→20:54)
[2019-02-24] MEDS: NICOTINE 21MG/24HR PATCH TRANSDERM SCH (06:04)
[2019-02-24 08:32] LABS: Cholesterol 209 mg/dL (<200); HDL Cholesterol 49 mg/dL (40-60); LDL Cholesterol,Calculated 137 mg/dL (0-99); Triglycerides 115 mg/dL (<150)
--- NOTE | 2019-02-24 11:41 | P.CRDCN ---
History of Present Illness History of present illness: HISTORY OF PRESENTING ILLNESS This is a pleasant 53-year-old male past medical history significant for hypertension in the past that has resolved since he quit drinking alcohol, chronic nicotine dependence, former heavy alcohol intake last drink March 2017. 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 We have been asked to see in consultation for chest pain. He had right rotator cuff surgery yesterday morning. In the afternoon he started feeling increased pain in the right shoulder so he took a norco and attempted to lay down. He then developed a heavy pressure in the left precordial region. No radiation. Aassociated with shortness of breath and inability to take a deep breath due to increasing pain. His symptoms of chest pain have subsided. DIAGNOSTICS EKG reveals sinus mechanism with nonspecific ST abnormalities. Chest xray mild elevation of the right hemidiaphragm. Laboratory reviewed, WBC 14, hemoglobin 14.2, platelets 346, sodium 139, potassium 4.1, creatinine 0.9, magnesium 1.8, cardiac enzymes negative 2, LDL 137. He takes no daily cardiac medications. Most recent echocardiogram obtained in 2018 reveals preserved LV systolic function with ejection fraction 55-60%. REVIEW OF SYSTEMS At the time of my exam: CONSTITUTIONAL: Denies fever or chills. CARDIOVASCULAR: Denies chest pain, shortness of breath, orthopnea, PND or palpitations. RESPIRATORY: Denies cough. GASTROINTESTINAL: Denies abdominal pain, diarrhea, constipation, nausea or vomiting. MUSCULOSKELETAL: Denies myalgias. NEUROLOGIC: Denies numbness, tingling or weakness. ENDOCRINE: Denies fatigue, weight change, polydipsia or polyurina. GENITOURINARY: Denies burning, hematuria or urgency with micturation. HEMATOLOGIC: Denies history of anemia or bleeding. PHYSICAL EXAMINATION Blood pressure and 16/ heart rate 67 afebrile and maintaining oxygen sa turation on room air. CONSTITUTIONAL: No apparent distress. HEENT: Head is normocephalic. Pupils are equal, round. Sclerae anicteric. Mucous membranes of the mouth are moist. No JVD. No carotid bruit. CHEST EXAMINATION: Lungs are clear to auscultation. No chest wall tenderness is noted on palpation or with deep breathing. HEART EXAMINATION: Regular rate and rhythm. S1, S2 heard. No murmurs, gallops or rub. ABDOMEN: Soft, nontender. Positive bowel sounds. EXTREMITIES: 2+ peripheral pulses, no lower extremity edema and no calf tenderness. NEUROLOGIC EXAMINATION: Patient is awake, alert and oriented x3. ASSESSMENT Chest pain, pleuritic Recent rotator cuff repair Leukocytosis Chronic nicotine dependence PLAN Obtain 2-D echocardiogram and Doppler study to assess cardiac structure and func tion. Continue to obtain serial cardiac enzymes to rule out an acute coronary event. Check a stat d-dimer. Thank you kindly for this consultation. Nurse Practitioner note has been reviewed, I agree with a documented findings and plan of care. Patient was seen and examined. Past Medical History Past Medical History: Hypertension Additional Past Medical History / Comment(s): degenerative disc in back, diverticulosis. History of Any Multi-Drug Resistant Organisms: C-DIFF Date of last positivie culture/infection: 2008 MDRO Source:: stool Past Surgical History: Back Surgery, Bowel Resection, Orthopedic Surgery Additional Past Surgical History / Comment(s): COLONOSCOPY; 10 inches of colon removed from diverticulosis., pt had scrotal lump removed, PAIN CLINIC PROCEDURE, left rotator cuff Past Anesthesia/Blood Transfusion Reactions: No Reported Reaction Past Psychological History: Anxiety, Bipolar, Depression Smoking Status: Current every day smoker Past Alcohol Use History: None Reported Past Drug Use History: None Reported - Past Family History Father Family Medical History: No Reported History Mother Family Medical History: Congestive Heart Failure (CHF) Medications and Allergies Home Medications Medication Instructions Recorded Confirmed Type Cyclobenzaprine [Flexeril] 10 mg PO TID 11/01/17 02/24/19 History Sertraline [Zoloft] 100 mg PO DAILY 03/22/18 02/24/19 History traMADol HCL [Ultram] 50 mg PO Q4HR PRN 03/22/18 02/24/19 History lamoTRIgine [LaMICtal] 150 mg PO DAILY 12/01/18 02/24/19 History HYDROcodone/APAP 7.5-325MG [[place] 1 tab PO Q6HR PRN 02/24/19 02/24/19 History 7.5] Allergies Allergy/AdvReac Type Severity Reaction Status Date / Time clonidine [From Catapres] AdvReac Vomiting Verified 02/24/19 06:23 Physical Exam Vitals: Vital Signs Temp Pulse Pulse Resp BP Pulse Ox 02/24/19 05:53 18 02/24/19 04:00 78 18 126/78 100 02/24/19 02:16 81 18 128/81 98 02/24/19 01:03 101 H 02/24/19 00:25 98.1 F 109 H 20 174/101 96 Intake and Output 02/23/19 02/24/19 02/24/19 22:59 06:59 14:59 Other: # Voids 1 Weight 88.451 kg Results 02/24/19 00:55 02/24/19 00:55 Cardiac Enzymes 02/24/19 02/24/19 02/24/19 Range/Units 00:55 00:55 05:40 AST 24 (17-59) U/L Troponin I <0.012 <0.012 (0.000-0.034) ng/mL Coagulation 02/24/19 Range/Units 00:55 PT 10.3 (9.0-12.0) sec APTT 23.8 (22.0-30.0) sec CBC 02/24/19 Range/Units 00:55 WBC 14.0 H (3.8-10.6) k/uL RBC 4.98 (4.30-5.90) m/uL Hgb 14.2 (13.0-17.5) gm/dL Hct 43.7 (39.0-53.0) % Plt Count 346 (150-450) k/uL Comprehensive Metabolic Panel 02/24/19 Range/Units 00:55 Sodium 139 (137-145) mmol/L Potassium 4.1 (3.5-5.1) mmol/L Chloride 105 (98-107) mmol/L Carbon Dioxide 26 (22-30) mmol/L BUN 13 (9-20) mg/dL Creatinine 0.90 (0.66-1.25) mg/dL Glucose 200 H (74-99) mg/dL Calcium 9.8 (8.4-10.2) mg/dL AST 24 (17-59) U/L ALT 16 (4-49) U/L Alkaline Phosphatase 65 (38-126) U/L Total Protein 7.2 (6.3-8.2) g/dL Albumin 4.3 (3.5-5.0) g/dL Current Medications Generic Name Dose Route Start Last Admin Trade Name Freq PRN Reason Stop Dose Admin Hydromorphone HCl 1 mg 02/24/19 04:59 02/24/19 05:46 Dilaudid IVP 1 mg Q3HR PRN Administration Severe Pain Naloxone HCl 0.2 mg 02/24/19 04:59 Narcan IV Q2M PRN Opioid Reversal Nicotine 1 patch 02/24/19 09:00 02/24/19 06:04 Habitrol 21mg/24hr Patch TRANSDERM 1 patch DAILY NIKKI Administration Ondansetron HCl 4 mg 02/24/19 04:59 Zofran IVP Q8HR PRN Nausea And Vomiting Intake and Output 02/23/19 02/24/19 02/24/19 22:59 06:59 14:59 Other: # Voids 1 Weight 88.451 kg 02/24/19 00:55 02/24/19 00:55
--- NOTE | 2019-02-24 13:01 | ECHOF ---
Referral Reason:sob, cp after surgery MEASUREMENTS -------- HEIGHT: 167.6 cm WEIGHT: 88.5 kg BP: 121/76 RVIDd: 3.7 cm (< 3.3) IVSd: 1.3 cm (0.6 - 1.1) LVIDd: 4.3 cm (3.9 - 5.3) LVPWd: 1.4 cm (0.6 - 1.1) IVSs: 1.8 cm LVIDs: 3.0 cm LVPWs: 1.9 cm LAESV Index (A-L): 24.51 ml/m Ao Diam: 3.4 cm (2.0 - 3.7) AV Cusp: 1.9 cm (1.5 - 2.6) LA Diam: 3.9 cm (2.7 - 3.8) MV EXCURSION: 20.216 mm (> 18.000) MV EF SLOPE: 134 mm/s (70 - 150) EPSS: 0.4 cm MV E Golden: 0.96 m/s MV DecT: 185 ms MV A Golden: 0.63 m/s MV E/A Ratio: 1.52 RAP: 5.00 mmHg RVSP: 25.27 mmHg FINDINGS -------- Sinus rhythm. This was a technically adequate study. The left ventricular size is normal. There is mild concentric left ventricular hypertrophy. Overa ll left ventricular systolic function is normal with, an EF between 55 - 60 %. The diastolic fillin g pattern is normal for the age of the patient 11.68. The right ventricle is normal in size. Normal LA size by volume 22+/-6 ml/m2. The right atrial size is normal. Interatrial and interventricular septum intact. The aortic valve is trileaflet and appears structurally normal. There is no evidence of aortic regu rgitation. There is no evidence of aortic stenosis. There is trace mitral regurgitation. Trace tricuspid regurgitation present. There is no evidence of pulmonary hypertension. The right ventricular systolic pressure, as measured by Doppler, is 25.27mmHg. There is no pulmonic regurgitation present. The aortic root size is normal. IVC Not well visulized. There is no pericardial effusion. CONCLUSIONS -------- 1. Sinus rhythm. 2. This was a technically adequate study. 3. The left ventricular size is normal. 4. There is mild concentric left ventricular hypertrophy. 5. Overall left ventricular systolic function is normal with, an EF between 55 - 60 %. 6. The diastolic filling pattern is normal for the age of the patient 11.68 7. The right ventricle is normal in size. 8. Normal LA size by volume 22+/-6 ml/m2. 9. The right atrial size is normal. 10. Interatrial and interventricular septum intact. 11. The aortic valve is trileaflet and appears structurally normal. 12. There is no evidence of aortic regurgitation. 13. There is no evidence of aortic stenosis. 14. There is trace mitral regurgitation. 15. Trace tricuspid regurgitation present. 16. There is no evidence of pulmonary hypertension. 17. The right ventricular systolic pressure, as measured by Doppler, is 25.27mmHg. 18. There is no pulmonic regurgitation present. 19. The aortic root size is normal. 20. IVC Not well visulized. 21. There is no pericardial effusion. BOARD MILL SUPERVISOR: Tisha Mack RDCS
[2019-02-24] MEDS: CYCLOBENZAPRINE 10 MG TAB PO SCH (17:19)
--- NOTE | 2019-02-24 17:53 | P.HPIM ---
History of Present Illness 53-year-old male is postoperative from right shoulder repair. Developed chest pain and came to the emergency room. To be evaluated for cardiac source of chest pain. Patient has intractable shoulder pain Review of Systems Cardiovascular: Reports chest pain Gastrointestinal: Reports nausea Musculoskeletal: right: shoulder pain Past Medical History Past Medical History: Hypertension Additional Past Medical History / Comment(s): degenerative disc in back, diverticulosis. History of Any Multi-Drug Resistant Organisms: C-DIFF Date of last positivie culture/infection: 2008 MDRO Source:: stool Past Surgical History: Back Surgery, Bowel Resection, Orthopedic Surgery Additional Past Surgical History / Comment(s): COLONOSCOPY; 10 inches of colon removed from diverticulosis., pt had scrotal lump removed, PAIN CLINIC PROCEDURE, left rotator cuff Past Anesthesia/Blood Transfusion Reactions: No Reported Reaction Past Psychological History: Anxiety, Bipolar, Depression Smoking Status: Current every day smoker Past Alcohol Use History: None Reported Past Drug Use History: None Reported - Past Family History Father Family Medical History: No Reported History Mother Family Medical History: Congestive Heart Failure (CHF) Medications and Allergies Home Medications Medication Instructions Recorded Confirmed Type Cyclobenzaprine [Flexeril] 10 mg PO TID 11/01/17 02/24/19 History Sertraline [Zoloft] 100 mg PO DAILY 03/22/18 02/24/19 History traMADol HCL [Ultram] 50 mg PO Q4HR PRN 03/22/18 02/24/19 History lamoTRIgine [LaMICtal] 150 mg PO DAILY 12/01/18 02/24/19 History HYDROcodone/APAP 7.5-325MG [[place] 1 tab PO Q6HR PRN 02/24/19 02/24/19 History 7.5] Allergies Allergy/AdvReac Type Severity Reaction Status Date / Time clonidine [From Catapres] AdvReac Vomiting Verified 02/24/19 06:23 Physical Exam Vitals: Vital Signs Temp Pulse Pulse Pulse Resp BP BP 02/24/19 15:46 98.1 F 81 18 159/87 02/24/19 11:27 97.5 F L 67 18 02/24/19 08:15 18 02/24/19 07:30 98.1 F 67 18 121/76 02/24/19 05:53 18 02/24/19 04:00 78 18 126/78 02/24/19 02:16 81 18 128/81 02/24/19 01:03 101 H 02/24/19 00:25 98.1 F 109 H 20 174/101 BP Pulse Ox 02/24/19 15:46 96 02/24/19 11:27 116/77 97 02/24/19 08:15 02/24/19 07:30 95 02/24/19 05:53 02/24/19 04:00 100 02/24/19 02:16 98 02/24/19 01:03 02/24/19 00:25 96 Intake and Output 02/24/19 02/24/19 02/24/19 06:59 14:59 22:59 Intake Total 620 200 Balance 620 200 Intake: Oral 420 200 Other 200 Other: Voiding Method Toilet Toilet # Voids 1 Weight 88.451 kg - Constitutional General appearance: mild distress - EENT Eyes: PERRLA Ears: bilateral: normal - Neck Neck: normal ROM - Respiratory Respiratory: bilateral: CTA - Cardiovascular Rhythm: regular - Gastrointestinal General gastrointestinal: soft - Integumentary Integumentary: normal - Neurologic Neurologic: CNII-XII intact - Musculoskeletal Right shoulder pain dressing intact Musculoskeletal: gait normal - Psychiatric Psychiatric: A&O x's 3, appropriate affect, intact judgment & insight Results CBC & Chem 7: 02/24/19 00:55 02/24/19 00:55 Labs: Abnormal Lab Results - Last 24 Hours (Table) 02/24/19 02/24/19 02/24/19 Range/Units 00:55 00:55 05:50 WBC 14.0 H (3.8-10.6) k/uL Neutrophils # 11.6 H (1.3-7.7) k/uL Glucose 200 H (74-99) mg/dL Cholesterol 209 H (<200) mg/dL LDL Cholesterol, Calc 137 H (0-99) mg/dL Thrombosis Risk Factor Assmnt - Choose All That Apply Each Factor Represents 1 point: Age 41-60 years Thrombosis Risk Factor Assessment Total Risk Factor Score: 1 Thrombosis Risk Factor Assessment Level: Low Risk Assessment and Plan Plan: Assessment Chest pain negative echo cleared by cardiology for discharge negative d-dimer troponins negative Right shoulder pain postoperative right rotator cuff repair Dr. Ortega intractable pain History of hypertension Smoker Plan Continue with pain medication hopeful discharge in the morning
[2019-02-25] MEDS: HYDROmorphone 1 MG/ML 1 ML SYRINGE IVP PRN ×4 (00:21→10:13)
[2019-02-25] MEDS: CYCLOBENZAPRINE 10 MG TAB PO SCH ×2 (00:24→03:19)
[2019-02-25 07:36] VITALS: BP 135/87; PULSE 63; TEMP 97.8
[2019-02-25] MEDS: NICOTINE 21MG/24HR PATCH TRANSDERM SCH (08:12)
[2019-02-25] MEDS ORDERED: lamoTRIgine 100 MG TAB PO SCH (09:00)
[2019-02-25] MEDS ORDERED: SERTRALINE 100 MG TAB PO SCH (09:00)
--- NOTE | 2019-02-25 13:11 | P.DS ---
Providers Date of admission: 02/24/19 04:22 Expected date of discharge: 02/25/19 Attending physician: Florencio Goodman Consults: 02/24/19 05:42 Consult Physician Stat Consulting Provider: [facility] Consult Reason/Comments: Chest Pain; Shortness of breath Do you want consulting provider notified?: Yes Primary care physician: Florencio Goodman Hospital Course: 53-year-old male of presented the emergency room postoperative for right shoulder rotator cuff repair. Patient developed chest pain and uncontrolled pain to the shoulder. Patient was evaluated by cardiology and cleared for discharge. Patient remained the night for pain control to the shoulder Assessment Chest pain troponins negative 3 cleared by cardiology atypical Right shoulder pain and postoperative uncontrolled pain rotator cuff repair Smoker Hypertension Plan Follow-up with family physician Dr. Florencio Goodman Follow-up with cardiology Follow-up with surgeon Patient Condition at Discharge: Serious Plan - Discharge Summary New Discharge Prescriptions: New Cyclobenzaprine [Flexeril] 10 mg PO TID tab Nicotine 21Mg/24Hr Patch [Habitrol] 1 patch TRANSDERM DAILY #28 patch Continue Cyclobenzaprine [Flexeril] 10 mg PO TID Sertraline [Zoloft] 100 mg PO DAILY lamoTRIgine [LaMICtal] 150 mg PO DAILY HYDROcodone/APAP 7.5-325MG [[place] 7.5-325] 1 tab PO Q6HR PRN PRN Reason: Pain Discontinued traMADol HCL [Ultram] 50 mg PO Q4HR PRN PRN Reason: Pain Discharge Medication List Cyclobenzaprine [Flexeril] 10 mg PO TID 11/01/17 [History] Sertraline [Zoloft] 100 mg PO DAILY 03/22/18 [History] lamoTRIgine [LaMICtal] 150 mg PO DAILY 12/01/18 [History] HYDROcodone/APAP 7.5-325MG [[place] 7.5-325] 1 tab PO Q6HR PRN 02/24/19 [History] Cyclobenzaprine [Flexeril] 10 mg PO TID tab 02/25/19 [Rx] Nicotine 21Mg/24Hr Patch [Habitrol] 1 patch TRANSDERM DAILY #28 patch 02/25/19 [Rx] Follow up Appointment(s)/Referral(s): Florencio Goodman MD [Primary Care Provider] - 1-2 days Yashira Villalba MD [STAFF PHYSICIAN] - 03/05/19 10:45 am (Follow up in the office with Dr. Villalba as scheduled for you )
[2019-02-25] MEDS ORDERED: HYDROcodone/APAP 7.5-325MG 1 EACH TAB PO ONE (13:15)
== END 2019-02-25 13:57 | disposition home or self-care (01) ==
LOC: EC 00:21 → 1SOBS 04:22
PROVIDERS: ADMIT Family Medicine; ATTEND Family Medicine
DX: R07.89 Other chest pain (principal); G89.18 Other acute postprocedural pain; M25.511 Pain in right shoulder; F17.210 Nicotine dependence, cigarettes, uncomplicated; I10 Essential (primary) hypertension; K57.90 Diverticulosis of intestine, part unspecified, without perforation or abscess without bleeding; F31.9 Bipolar disorder, unspecified; F41.9 Anxiety disorder, unspecified; F32.9 Major depressive disorder, single episode, unspecified; Z82.49 Family history of ischemic heart disease and other diseases of the circulatory system; Z79.899 Other long term (current) drug therapy; Z79.891 Long term (current) use of opiate analgesic; Z91.09 Other allergy status, other than to drugs and biological substances
CPT/HCPCS: 93005 ×2; 96376 ×3; 96374; 96375; 99285; 36415; 93306; 85379; 80061; 80053; 83735; 84484; 85025; 85610; 85730; 71046; G0378 ×2; S4990 ×2; J2405; J1170 ×3

== ENCOUNTER 2019-03-21 11:38 | Emergency (ER) | payer MEDICARE, OTHER ==
[2019-03-21 12:03] VITALS: BP 160/104; PULSE 103; RESP 18; TEMP 97.9
--- NOTE | 2019-03-21 13:52 | XR ---
EXAMINATION TYPE: XR shoulder complete RT , 3 VIEWS DATE OF EXAM ORDERED: 03/21/2019 HISTORY: right pain. COMPARISON: Previous study dated 02/21/2019. FINDINGS: No fracture, dislocation or other acute osseous lesion is seen. There is mild degenerative change in the right AC joint. IMPRESSION: NO ACUTE OSSEOUS LESION.
[2019-03-21] MEDS ORDERED: ACET/COD 300 MG/30 MG STARTER PACK 6 TAB BTL PO STA (14:00)
--- NOTE | 2019-03-21 14:07 | ED ---
General Adult HPI - General Chief complaint: Extremity Injury, Upper Stated complaint: Shoulder pain/fell out of bed post op 02-23-19 Time Seen by Provider: 03/21/19 12:50 Source: patient Mode of arrival: ambulatory Limitations: no limitations - History of Present Illness Initial comments: Patient is a 53-year-old male presenting to emergency for with a chief complaint of right shoulder pain. Patient states that he had rotator cuff repair on the right shoulder approximately 2 weeks ago. Patient reports he was sleeping on his recliner chair when he unknowingly rolled off and fell on the right side and reinjured her right shoulder. Patient reports pain in the right shoulder at baseline along with swelling. However, the pain is increased in severity. Patient reports he was wearing a sling after the incident after the surgery and he continues to wear now. Patient states the only change is the increasing pain. Denies any erythema or other skin changes in her vision. Denies any fevers or chills. - Related Data Home Medications Medication Instructions Recorded Confirmed Cyclobenzaprine [Flexeril] 10 mg PO TID 11/01/17 02/24/19 Sertraline [Zoloft] 100 mg PO DAILY 03/22/18 02/24/19 lamoTRIgine [LaMICtal] 150 mg PO DAILY 12/01/18 02/24/19 HYDROcodone/APAP 7.5-325MG [[place] 1 tab PO Q6HR PRN 02/24/19 02/24/19 7.5-325] Previous Rx's Medication Instructions Recorded Cyclobenzaprine [Flexeril] 10 mg PO TID tab 02/25/19 Nicotine 21Mg/24Hr Patch [Habitrol] 1 patch TRANSDERM DAILY #28 patch 02/25/19 Allergies Allergy/AdvReac Type Severity Reaction Status Date / Time clonidine [From Catapres] AdvReac Vomiting Verified 02/24/19 06:23 Review of Systems ROS Statement: Those systems with pertinent positive or pertinent negative responses have been documented in the HPI. ROS Other: All systems not noted in ROS Statement are negative. Past Medical History Past Medical History: Hypertension Additional Past Medical History / Comment(s): degenerative disc in back, diverticulosis. History of Any Multi-Drug Resistant Organisms: C-DIFF Date of last positivie culture/infection: 2008 MDRO Source:: stool Past Surgical History: Back Surgery, Bowel Resection, Orthopedic Surgery Additional Past Surgical History / Comment(s): COLONOSCOPY; 10 inches of colon removed from diverticulosis., pt had scrotal lump removed, PAIN CLINIC PROCEDURE, left rotator cuff Past Anesthesia/Blood Transfusion Reactions: No Reported Reaction Past Psychological History: Anxiety, Bipolar, Depression Smoking Status: Current every day smoker Past Alcohol Use History: None Reported Past Drug Use History: None Reported - Past Family History Father Family Medical History: No Reported History Mother Family Medical History: Congestive Heart Failure (CHF) General Exam Limitations: no limitations General appearance: alert, in no apparent distress Head exam: Present: atraumatic, normocephalic, normal inspection Eye exam: Present: normal appearance Pupils: Present: normal accommodation ENT exam: Present: normal exam Neck exam: Present: normal inspection, full ROM Respiratory exam: Present: normal lung sounds bilaterally Cardiovascular Exam: Present: regular rate, normal rhythm, normal heart sounds Extremities exam: Present: normal inspection (Right shoulder swelling at baseline. No skin changes.), tenderness (Tenderness along the anterior lateral aspect of the right deltoid.), normal capillary refill, other (+2 ulnar radial pulses bilaterally.). Absent: full ROM (Limited range of motion at baseline due to rotator cuff repair and right shoulder.\) Back exam: Present: normal inspection, full ROM Neurological exam: Present: alert, oriented X3 Psychiatric exam: Present: normal affect, normal mood Skin exam: Present: warm, intact, normal color Course Vital Signs 03/21/19 03/21/19 12:00 14:32 Temperature 97.9 F 97.9 F Pulse Rate 103 H 103 H Respiratory 18 18 Rate Blood Pressure 160/104 160/104 O2 Sat by Pulse 100 100 Oximetry Medical Decision Making - Medical Decision Making patient is a 53-year-old male presenting to the emergency department with a chief complaint right shoulder pain. Patient had rotator cuff repair on the right shoulder 3 weeks ago. Patient unknowingly pulled off his recliner chair while he was sleeping. Respiratory no. Patient is not complaining of increased pain compared to baseline. Here he had some swelling at baseline. States there are no changes to the swelling. On exam patient does have tenderness on the anterior lateral aspect of the deltoid. No skin changes present. Patient presented to the ED with a sling. Patient will be discharged and advised to follow-up with Dr. gilman. X-ray of the right shoulder shows no acute fracture or dislocations. Will be discharged with a Tylenol 3 starter pack and advised not to drive or operate heavy machinery when taking the medication. Strict return parameters were thoroughly discussed with patient denies any and agreeable. Case discussed with physician. Disposition Clinical Impression: Shoulder pain Disposition: HOME SELF-CARE Condition: Stable Instructions (If sedation given, give patient instructions): Shoulder Sprain (ED) Additional Instructions: Please follow-up with . Alternate between Tylenol Motrin for pain control. Return to emergency department if symptoms worsen. Is patient prescribed a controlled substance at d/c from ED?: No Referrals: Florencio Goodman MD [Primary Care Provider] - 1-2 days Time of Disposition: 14:06
== END 2019-03-21 14:32 | disposition home or self-care (01) ==
LOC: EC 11:38
DX: M25.511 Pain in right shoulder (principal); M79.89 Other specified soft tissue disorders; F31.9 Bipolar disorder, unspecified; F41.9 Anxiety disorder, unspecified; F17.200 Nicotine dependence, unspecified, uncomplicated; Z79.899 Other long term (current) drug therapy; Z88.8 Allergy status to other drugs, medicaments and biological substances; Z98.890 Other specified postprocedural states; Z87.39 Personal history of other diseases of the musculoskeletal system and connective tissue; W07.XXXA Fall from chair, initial encounter; Y93.84 Activity, sleeping
CPT/HCPCS: 99283

== ENCOUNTER 2019-05-07 11:39 | Emergency (ER) | payer MEDICARE, OTHER ==
[2019-05-07 11:43] VITALS: BP 175/95; PULSE 86; RESP 18; TEMP 98.1
--- NOTE | 2019-05-07 12:14 | ED ---
General Adult HPI - General Chief complaint: Skin/Abscess/Foreign Body Stated complaint: Abscess Time Seen by Provider: 05/07/19 11:53 Source: patient Mode of arrival: ambulatory Limitations: no limitations - History of Present Illness Initial comments: Patient is a 53-year-old male presenting to the emergency department with a chief complaint of an abscess. Patient reports over the last 4 days he developed anal pain. Patient reports the pain is worse whenever he is having a bowel movement and only improved slightly after defecation. Patient does report right leg bleeding since the onset of pain. Denies any history of hemorrhoids. Does report some diarrhea over the last 2 days. Does report occasional bouts with constipation as well. Denies any abdominal pain nausea vomiting. Denies any testicular pain or penile discharge. - Related Data Home Medications Medication Instructions Recorded Confirmed Cyclobenzaprine [Flexeril] 10 mg PO TID 11/01/17 05/07/19 Sertraline [Zoloft] 100 mg PO DAILY 03/22/18 05/07/19 lamoTRIgine [LaMICtal] 150 mg PO DAILY 12/01/18 05/07/19 HYDROcodone/APAP 7.5-325MG [[place] 1 tab PO Q6HR PRN 02/24/19 05/07/19 7.5-325] Ibuprofen [Motrin] 800 mg PO Q8H PRN 05/07/19 05/07/19 Allergies Allergy/AdvReac Type Severity Reaction Status Date / Time clonidine [From Catapres] AdvReac Vomiting Verified 02/24/19 06:23 Review of Systems ROS Statement: Those systems with pertinent positive or pertinent negative responses have been documented in the HPI. ROS Other: All systems not noted in ROS Statement are negative. Past Medical History Past Medical History: Hypertension Additional Past Medical History / Comment(s): degenerative disc in back, diverticulosis. History of Any Multi-Drug Resistant Organisms: C-DIFF Date of last positivie culture/infection: 2008 MDRO Source:: stool Past Surgical History: Back Surgery, Bowel Resection, Orthopedic Surgery Additional Past Surgical History / Comment(s): COLONOSCOPY; 10 inches of colon removed from diverticulosis., pt had scrotal lump removed, PAIN CLINIC PROCEDURE, left rotator cuff Past Anesthesia/Blood Transfusion Reactions: No Reported Reaction Past Psychological History: Anxiety, Bipolar, Depression Smoking Status: Current every day smoker Past Alcohol Use History: None Reported Past Drug Use History: None Reported - Past Family History Father Family Medical History: No Reported History Mother Family Medical History: Congestive Heart Failure (CHF) General Exam Limitations: no limitations General appearance: alert, in no apparent distress Head exam: Present: atraumatic, normocephalic, normal inspection Eye exam: Present: normal appearance, PERRL, EOMI Pupils: Present: normal accommodation ENT exam: Present: normal exam Neck exam: Present: normal inspection, full ROM Respiratory exam: Present: normal lung sounds bilaterally Cardiovascular Exam: Present: regular rate, normal rhythm, normal heart sounds GI/Abdominal exam: Present: soft. Absent: distended, tenderness Rectal exam: Present: hemorrhoids (External hemorrhoids). Absent: normal inspection (External hemorrhoid at 6:00) Extremities exam: Present: normal inspection, full ROM Back exam: Present: normal inspection, full ROM Neurological exam: Present: alert, oriented X3 Psychiatric exam: Present: normal affect, normal mood Skin exam: Present: warm, dry, intact, normal color Course Vital Signs 05/07/19 11:41 Temperature 98.1 F Pulse Rate 86 Respiratory 18 Rate Blood Pressure 175/95 O2 Sat by Pulse 99 Oximetry Medical Decision Making - Medical Decision Making Patient is a 53-year-old male presenting to the emergency department with a chief complaint of an abscess. On exam patient does appear to have an external hemorrhoid and is not currently bleeding. Symptoms began over 72 hours ago. No incision and drainage at this time. No signs of a fissure. Patient advised to use sitz bath and [id number] Preparation H. Advised the patient to follow up with a GI specialist symptoms continue for prolonged periods of time. Patient advised to take a stool softener in all to prevent any constipation which could potentially lead to straining. Return parameters were discussed with patient is sitting and agreeable. Case discussed with physician. Disposition Clinical Impression: External hemorrhoid, Rectal pain Disposition: HOME SELF-CARE Condition: Stable Instructions (If sedation given, give patient instructions): Hemorrhoids (DC) Additional Instructions: Use warm sitz baths and laxatives if you develop constipation. Return to emergency department if symptoms worsen. Is patient prescribed a controlled substance at d/c from ED?: No Referrals: Florencio Goodman MD [Primary Care Provider] - 1-2 days Constantino Ortiz MD [STAFF PHYSICIAN] - 1-2 days Time of Disposition: 12:40
== END 2019-05-07 12:49 | disposition home or self-care (01) ==
LOC: EC 11:39
DX: K64.4 Residual hemorrhoidal skin tags (principal); R19.7 Diarrhea, unspecified; K59.00 Constipation, unspecified; F31.9 Bipolar disorder, unspecified; F41.9 Anxiety disorder, unspecified; F17.200 Nicotine dependence, unspecified, uncomplicated; Z88.8 Allergy status to other drugs, medicaments and biological substances; Z79.899 Other long term (current) drug therapy; Z87.39 Personal history of other diseases of the musculoskeletal system and connective tissue
CPT/HCPCS: 99282

== ENCOUNTER 2019-05-25 10:23 | Emergency (ER) | payer MEDICARE, OTHER ==
[2019-05-25 11:46] LABS: Basophils % (A) 0 %; Eosinophils # (A) 0.2 k/uL (0-0.7); Eosinophils % (A) 2 %; HCT 46.8 % (39.0-53.0); HGB 15.8 gm/dL (13.0-17.5); Lymphocytes # (A) 2.3 k/uL (1.0-4.8); Lymphocytes % (A) 21 %; MCH 29.4 pg (25.0-35.0); MCHC 33.7 g/dL (31.0-37.0); MCV 87.2 fL (80.0-100.0); Mean Platelet Volume 7.5; Monocytes # (A) 0.5 k/uL (0-1.0); Monocytes % (A) 5 %; Neutrophils # (A) 7.4 k/uL (1.3-7.7); Neutrophils % (A) 69 %; Platelet Count 264 k/uL (150-450); RBC 5.37 m/uL (4.30-5.90); RDW 13.5 % (11.5-15.5); WBC 10.7 k/uL (3.8-10.6)
[2019-05-25 12:00] LABS: ALT 31 U/L (4-49); AST 36 U/L (17-59); African American GFR (CKD) >90 (>60 ml/min/1.73 sqM); Albumin 4.6 g/dL (3.5-5.0); Alkaline Phosphatase 78 U/L (38-126); Anion Gap 12 mmol/L; Blood Urea Nitrogen 16 mg/dL (9-20); Calcium 9.6 mg/dL (8.4-10.2); Carbon Dioxide 22 mmol/L (22-30); Chloride 104 mmol/L (98-107); Creatine Kinase 248 U/L (55-170); Glucose 112 mg/dL (74-99); LDH 548 U/L (313-618); Magnesium 1.9 mg/dL (1.6-2.3); Non-African American GFR(CKD) >90 (>60 ml/min/1.73 sqM); Sodium 138 mmol/L (137-145); Total Bilirubin 0.8 mg/dL (0.2-1.3); Total Protein 7.8 g/dL (6.3-8.2)
[2019-05-25] MEDS ORDERED: LORazepam 2 MG/ML INJ IV STA (12:08)
--- NOTE | 2019-05-25 12:10 | XR ---
EXAMINATION TYPE: XR chest 1V portable DATE OF EXAM: 05/25/2019 Comparison: 02/24/2019 Clinical History: 53-year-old male Suspected COVID-19 pneumonia Findings: The cardiomediastinal silhouette, aorta, and pulmonary vasculature are within normal limits. Hazy [place] ng densities likely related to overlying soft tissue and portable technique. No focal consolidation o r pleural effusion. Impression: No definite acute process identified.
--- NOTE | 2019-05-25 13:36 | ED ---
SOB HPI - General Chief Complaint: Shortness of Breath Stated Complaint: NVD Source: patient Mode of arrival: EMS Limitations: no limitations - History of Present Illness Initial Comments: The patient is a 53-year-old male with past nuchal history of hypertension presents to the emergency room with reported nonproductive cough, nausea, body aches and loose stools for the past 3 days. He denies sick contacts or similar symptoms. Does admit to exposure to the public after grocery shopping. Admits to mild shortness of breath. No vomiting. Does admit to diffuse body aches and diarrhea. Denies melenic stools or hematochezia. No chest pain. Denies any fevers. No recent travel. Denies any Calf pain or swelling. Does take Tylenol for his myalgias. Admits to mild headache. No abdominal pain. There are no other alleviating, precipitating or modifying factors - Related Data Home Medications Medication Instructions Recorded Confirmed Cyclobenzaprine [Flexeril] 10 mg PO TID 11/01/17 05/25/19 Sertraline [Zoloft] 100 mg PO DAILY 03/22/18 05/25/19 lamoTRIgine [LaMICtal] 150 mg PO DAILY 12/01/18 05/25/19 HYDROcodone/APAP 7.5-325MG [[place] 1 tab PO Q6HR PRN 02/24/19 05/25/19 7.5-325] Ibuprofen [Motrin] 800 mg PO Q8H PRN 05/07/19 05/25/19 Previous Rx's Medication Instructions Recorded Albuterol Sulfate [Proair Hfa] 1 - 2 puff INHALATION Q4HR PRN #1 05/25/19 inhaler Allergies Allergy/AdvReac Type Severity Reaction Status Date / Time clonidine [From Catapres] AdvReac Vomiting Verified 05/25/19 13:14 Review of Systems ROS Statement: Those systems with pertinent positive or pertinent negative responses have been documented in the HPI. ROS Other: All systems not noted in ROS Statement are negative. Past Medical History Past Medical History: Hypertension Additional Past Medical History / Comment(s): degenerative disc in back, diverticulosis. History of Any Multi-Drug Resistant Organisms: C-DIFF Date of last positivie culture/infection: 2008 MDRO Source:: stool Past Surgical History: Back Surgery, Bowel Resection, Orthopedic Surgery Additional Past Surgical History / Comment(s): COLONOSCOPY; 10 inches of colon removed from diverticulosis., pt had scrotal lump removed, PAIN CLINIC PROCEDURE, left rotator cuff Past Anesthesia/Blood Transfusion Reactions: No Reported Reaction Past Psychological History: Anxiety, Bipolar, Depression Smoking Status: Current every day smoker Past Alcohol Use History: Occasional, Rare Past Drug Use History: None Reported - Past Family History Father Family Medical History: No Reported History Mother Family Medical History: Congestive Heart Failure (CHF) General Exam Limitations: no limitations Course Vital Signs 05/25/19 05/25/19 05/25/19 10:42 10:52 12:20 Temperature 99.1 F Pulse Rate 109 H 90 Respiratory 18 18 Rate Blood Pressure 183/109 160/103 137/97 O2 Sat by Pulse 98 98 Oximetry 05/25/19 05/25/19 13:40 14:37 Temperature 99.0 F Pulse Rate 93 100 Respiratory 20 18 Rate Blood Pressure 144/102 143/99 O2 Sat by Pulse 98 97 Oximetry Medical Decision Making - Medical Decision Making Upon arrival the patient was placed in room 3. A thorough history and physical exam was performed. Laboratory studies were conducted. White blood cell count is 10.7. Lactic acid 2.4. CK is 248. Influenza A and B are not detected. Cheryl st x-ray demonstrates no definite acute process. The patient's vitals are is on multiple occasions. He does remain satting 98% on room air. No increased work of breathing. I did discuss the diagnosis, differential and treatment options. I informed the patient of possible Covid however he'll not tested patient at this time as the patient is clinically stable for discharge home. I did inform him to quarantine himself which she is able to do. The patient will be treated with an inhaler for which I did send the pharmacy. If at any point the patient has new or worsening symptoms she should return to the emergency room. The patient was in agreement with this he was discharged home ambulatory in stable condition - Lab Data Result diagrams: 05/25/19 10:40 05/25/19 10:40 Lab Results 05/25/19 05/25/19 05/25/19 Range/Units 10:40 10:40 10:40 WBC 10.7 H (3.8-10.6) k/uL RBC 5.37 (4.30-5.90) m/uL Hgb 15.8 (13.0-17.5) gm/dL Hct 46.8 (39.0-53.0) % MCV 87.2 (80.0-100.0) fL MCH 29.4 (25.0-35.0) pg MCHC 33.7 (31.0-37.0) g/dL RDW 13.5 (11.5-15.5) % Plt Count 264 (150-450) k/uL Neutrophils % 69 % Lymphocytes % 21 % Monocytes % 5 % Eosinophils % 2 % Basophils % 0 % Neutrophils # 7.4 (1.3-7.7) k/uL Lymphocytes # 2.3 (1.0-4.8) k/uL Monocytes # 0.5 (0-1.0) k/uL Eosinophils # 0.2 (0-0.7) k/uL Basophils # 0.0 (0-0.2) k/uL Sodium 138 (137-145) mmol/L Potassium 4.0 (3.5-5.1) mmol/L Chloride 104 (98-107) mmol/L Carbon Dioxide 22 (22-30) mmol/L Anion Gap 12 mmol/L BUN 16 (9-20) mg/dL Creatinine 0.81 (0.66-1.25) mg/dL Est GFR (CKD-EPI)AfAm >90 (>60 ml/min/1.73 sqM) Est GFR (CKD-EPI)NonAf >90 (>60 ml/min/1.73 sqM) Glucose 112 H (74-99) mg/dL Plasma Lactic Acid David 2.4 H* (0.7-2.0) mmol/L Calcium 9.6 (8.4-10.2) mg/dL Magnesium 1.9 (1.6-2.3) mg/dL Total Bilirubin 0.8 (0.2-1.3) mg/dL AST 36 (17-59) U/L ALT 31 (4-49) U/L Alkaline Phosphatase 78 (38-126) U/L Lactate Dehydrogenase 548 (313-618) U/L Creatine Kinase 248 H (55-170) U/L Total Protein 7.8 (6.3-8.2) g/dL Albumin 4.6 (3.5-5.0) g/dL Lipase 106 (23-300) U/L Influenza Type A RNA (Not Detectd) Influenza Type B (PCR) (Not Detectd) 05/25/19 Range/Units 12:19 WBC (3.8-10.6) k/uL RBC (4.30-5.90) m/uL Hgb (13.0-17.5) gm/dL Hct (39.0-53.0) % MCV (80.0-100.0) fL MCH (25.0-35.0) pg MCHC (31.0-37.0) g/dL RDW (11.5-15.5) % Plt Count (150-450) k/uL Neutrophils % % Lymphocytes % % Monocytes % % Eosinophils % % Basophils % % Neutrophils # (1.3-7.7) k/uL Lymphocytes # (1.0-4.8) k/uL Monocytes # (0-1.0) k/uL Eosinophils # (0-0.7) k/uL Basophils # (0-0.2) k/uL Sodium (137-145) mmol/L Potassium (3.5-5.1) mmol/L Chloride (98-107) mmol/L Carbon Dioxide (22-30) mmol/L Anion Gap mmol/L BUN (9-20) mg/dL Creatinine (0.66-1.25) mg/dL Est GFR (CKD-EPI)AfAm (>60 ml/min/1.73 sqM) Est GFR (CKD-EPI)NonAf (>60 ml/min/1.73 sqM) Glucose (74-99) mg/dL Plasma Lactic Acid David (0.7-2.0) mmol/L Calcium (8.4-10.2) mg/dL Magnesium (1.6-2.3) mg/dL Total Bilirubin (0.2-1.3) mg/dL AST (17-59) U/L ALT (4-49) U/L Alkaline Phosphatase (38-126) U/L Lactate Dehydrogenase (313-618) U/L Creatine Kinase (55-170) U/L Total Protein (6.3-8.2) g/dL Albumin (3.5-5.0) g/dL Lipase (23-300) U/L Influenza Type A RNA Not Detected (Not Detectd) Influenza Type B (PCR) Not Detected (Not Detectd) - EKG Data EKG Comments: EKG demonstrates normal sinus rhythm with a ventricular rate of 88. WI 132. QRS 82. QTC of 440. No acute ST segment elevations or depressions concerning for ischemic changes T wave in lead 3 Disposition Clinical Impression: Cough, Diarrhea Disposition: HOME SELF-CARE Condition: Stable Instructions (If sedation given, give patient instructions): Upper Respiratory Infection (ED) Additional Instructions: Please isolate yourself for 14 days. Follow up with your primary care doctor. Return to the ER for any new or worsening symptoms Prescriptions: Albuterol Sulfate [Proair Hfa] 1 - 2 puff INHALATION Q4HR PRN #1 inhaler PRN Reason: difficulty in breathing Is patient prescribed a controlled substance at d/c from ED?: No Referrals: Florencio Goodman MD [Primary Care Provider] - 1-2 days Time of Disposition: 14:08
[2019-05-25 14:39] VITALS: BP 143/99; PULSE 100; RESP 18; TEMP 99
== END 2019-05-25 14:38 | disposition home or self-care (01) ==
LOC: EC 10:23
DX: R05 Cough (principal); R19.7 Diarrhea, unspecified; R11.2 Nausea with vomiting, unspecified; R06.02 Shortness of breath; I10 Essential (primary) hypertension; F41.9 Anxiety disorder, unspecified; F31.9 Bipolar disorder, unspecified; F17.200 Nicotine dependence, unspecified, uncomplicated; Z79.899 Other long term (current) drug therapy; Z88.8 Allergy status to other drugs, medicaments and biological substances
CPT/HCPCS: 36415; 93005; 80053; 82550; 83605; 83615; 83690; 83735; 85025; 87502; 71045; 99285; 96374; J2060

== ENCOUNTER → 2019-08-21 | Outpatient (CLI) | payer MEDICARE, OTHER | END | disposition home or self-care (01) | LOC: LABWHC1 12:51 | PROVIDERS: ATTEND Psychiatry & Neurology Neurology | DX: Z01.818 Encounter for other preprocedural examination (principal); Z11.59 Encounter for screening for other viral diseases ==

== ENCOUNTER → 2019-08-21 | Outpatient (CLI) | payer MEDICARE, OTHER ==
--- NOTE | 2019-08-21 16:59 | MR ---
EXAMINATION TYPE: MR shoulder RT wo con DATE OF EXAM: 08/21/2019 COMPARISON: 01/09/2019 HISTORY: 53-year-old male, M25.511, with right shoulder pain, hx of injury TECHNIQUE: Multiplanar, multisequence imaging of the right shoulder is performed without contrast. FINDINGS: The intracapsular portion of the long head biceps tendon is not visualized and may be torn. There is extensive heterogeneity of the subscapularis tendon. Suspect tear of the superior third fibr ous as well as areas of articular sided tearing of the remaining lower two thirds fibers. Evidence of prior supraspinatus tendon repair with a suture anchor. The supraspinatus is markedly thi ckened and heterogeneous. Areas of irregular tearing are suspected throughout the tendon with a 1.3 c m long by 0.8 cm AP area of the mid supraspinatus tendon being irregular and thin, coronal image 14 a nd sagittal image 9. Along the anterior fibers, there may be an irregular, nondisplaced tear that ins inuates across the full thickness of the tendon with bursal extension about 2 cm proximal to the foot print. No fluid-filled gap from a retracted stump is identified. Minimal fatty infiltration of the rotator cuff muscle bellies. Moderate fluid within the subacromial/subdeltoid bursa. Moderate to severe degenerative change at the acromioclavicular joint with subchondral marrow edema a nd capsular edema. There is inferior spurring which mildly impinges onto the myotendinous junction of the supraspinatus. No Hill-Sachs deformity or os acromiale. Mild diffuse thinning of articular cartilage within the glenohumeral joint. Possible small SLAP tear, coronal T2 FS image 18. No paralabral cyst. No significant joint effusion. Patchy red marrow can be seen with anemia, obesity, smoking, chronic disease. IMPRESSION: 1. Very heterogeneous, postoperative supraspinatus tendon. A 1.3 cm long segment of the mid supraspin atus tendon fibers becomes irregular and very diminutive suggesting a partial thickness tear. 2. Within the anterior supraspinatus tendon fibers just adjacent, there may be an irregular, nondispl aced tear that insinuates across the full-thickness of the tendon with bursal communication about 2 c m proximal to the footprint. No fluid-filled gap from a retracted stump is identified. 3. Full-thickness tear of the superior third subscapularis tendon and additional articular sided tear ing of the inferior two third fibers. 4. Moderate to severe AC joint OA with subacromial impingement. 5. Subacromial/subdeltoid bursal effusion could be reactive to either the tears or the impingement. 6. The intracapsular portion of the long head biceps tendon is not visualized and may be torn.
== END | disposition home or self-care (01) ==
LOC: RADMRIMAIN 13:24
PROVIDERS: ATTEND Orthopaedic Surgery
DX: M75.121 Complete rotator cuff tear or rupture of right shoulder, not specified as traumatic (principal); Z98.890 Other specified postprocedural states; M19.011 Primary osteoarthritis, right shoulder

== ENCOUNTER → 2019-09-09 | Outpatient (CLI) | payer MEDICARE, OTHER ==
[2019-09-09 13:26] LABS: Basophils % (A) 1 %; Eosinophils # (A) 0.4 k/uL (0-0.7); Eosinophils % (A) 6 %; HGB 16.1 gm/dL (13.0-17.5); Lymphocytes # (A) 1.9 k/uL (1.0-4.8); Lymphocytes % (A) 32 %; MCH 31.9 pg (25.0-35.0); MCHC 32.3 g/dL (31.0-37.0); MCV 98.9 fL (80.0-100.0); Mean Platelet Volume 7.2; Monocytes # (A) 0.4 k/uL (0-1.0); Monocytes % (A) 7 %; Neutrophils # (A) 3.2 k/uL (1.3-7.7); Neutrophils % (A) 53 %; Platelet Count 212 k/uL (150-450); RBC 5.06 m/uL (4.30-5.90); RDW 13.6 % (11.5-15.5); WBC 6.1 k/uL (3.8-10.6)
[2019-09-09 13:33] LABS: Potassium 4.6 mmol/L (3.5-5.1)
== END | disposition home or self-care (01) ==
LOC: LABPAT 11:12
PROVIDERS: ATTEND Orthopaedic Surgery
DX: Z01.818 Encounter for other preprocedural examination (principal); M75.41 Impingement syndrome of right shoulder
CPT/HCPCS: 80051; 85025

== ENCOUNTER 2019-12-17 06:58 | Inpatient (IN) | payer MEDICARE, OTHER ==
[2019-12-17] MEDS ORDERED: ONDANSETRON 4 MG/2 ML VIAL IVP STA (07:19)
[2019-12-17] MEDS ORDERED: SODIUM CHLORIDE 0.9% 1,000 ML IV STA (07:19)
[2019-12-17] MEDS ORDERED: HYDROmorphone 1 MG/ML 1 ML SYRINGE IVP STA (07:19)
[2019-12-17] MEDS ORDERED: PANTOPRAZOLE 40 MG/10 ML VIAL IVP STA (07:19)
--- NOTE | 2019-12-17 07:23 | ED ---
General Adult HPI - General Chief complaint: Abdominal Pain Stated complaint: Abd Pain Time Seen by Provider: 12/17/19 07:15 Source: patient, RN notes reviewed Mode of arrival: wheelchair Limitations: no limitations - History of Present Illness Initial comments: Patient is a pleasant 54-year-old male presenting to the emergency Department with complaints of abdominal discomfort. Onset of symptoms was yesterday. Symptoms have progressively worsened since that time. Discomfort is 8/10. Mild nausea. No vomiting. No diarrhea. No constipation. Patient did have similar symptoms in 2012 associated with diverticulitis and did have 10 inches of his colon removed at that time. No fevers. - Related Data Home Medications Medication Instructions Recorded Confirmed Cyclobenzaprine [Flexeril] 10 mg PO TID 11/01/17 12/17/19 Sertraline [Zoloft] 100 mg PO DAILY 03/22/18 12/17/19 lamoTRIgine [LaMICtal] 150 mg PO DAILY 12/01/18 12/17/19 HYDROcodone/APAP 7.5-325MG [[place] 1 tab PO TID PRN 12/17/19 12/17/19 7.5] terbinafine HCL [Terbinafine HCl] 250 mg PO DAILY 12/17/19 12/17/19 Allergies Allergy/AdvReac Type Severity Reaction Status Date / Time clonidine [From Catapres] AdvReac Vomiting Verified 12/17/19 09:13 Review of Systems ROS Statement: Those systems with pertinent positive or pertinent negative responses have been documented in the HPI. ROS Other: All systems not noted in ROS Statement are negative. Constitutional: Denies: fever Eyes: Denies: eye pain ENT: Denies: ear pain Cardiovascular: Denies: chest pain Endocrine: Denies: fatigue Gastrointestinal: Reports: as per HPI, abdominal pain, nausea. Denies: vomiting, hematemesis, hematochezia Genitourinary: Denies: dysuria Musculoskeletal: Denies: back pain Skin: Denies: rash Neurological: Denies: weakness Past Medical History Past Medical History: Hypertension Additional Past Medical History / Comment(s): degenerative disc in back, diverticulosis. History of Any Multi-Drug Resistant Organisms: C-DIFF Date of last positivie culture/infection: 2006 MDRO Source:: stool Past Surgical History: Bowel Resection Additional Past Surgical History / Comment(s): COLONOSCOPY; 10 inches of colon removed from diverticulosis., pt had scrotal lump removed, PAIN CLINIC PROCEDURE, right rotator cuff Past Anesthesia/Blood Transfusion Reactions: No Reported Reaction Past Psychological History: Anxiety, Bipolar, Depression Smoking Status: Current every day smoker Past Alcohol Use History: Occasional, Rare Past Drug Use History: None Reported - Past Family History Father Family Medical History: No Reported History Mother Family Medical History: Congestive Heart Failure (CHF) General Exam Limitations: no limitations General appearance: alert, in no apparent distress Head exam: Present: normocephalic Eye exam: Present: normal appearance Neck exam: Present: normal inspection Respiratory exam: Present: normal lung sounds bilaterally Cardiovascular Exam: Present: regular rate, normal rhythm Expanded Peripheral pulses: 2+: Posterior Tibialis (R), Posterior Tibialis (L) GI/Abdominal exam: Present: soft, tenderness (Moderate tenderness mostly left lower quadrant), normal bowel sounds. Absent: distended, guarding, rebound, rigid, pulsatile mass Extremities exam: Present: normal inspection. Absent: pedal edema, calf tenderness Neurological exam: Present: alert Psychiatric exam: Present: normal affect, normal mood Skin exam: Present: normal color Course Vital Signs 12/17/19 12/17/19 07:09 08:24 Temperature 99 F 98.7 F Pulse Rate 108 H 90 Respiratory 18 18 Rate Blood Pressure 151/105 149/84 O2 Sat by Pulse 98 100 Oximetry Medical Decision Making - Medical Decision Making Patient reevaluated and still having discomfort. A alexander denies significant alcohol use or recent alcohol use. Patient updated on results and plan. Case was discussed with practitioner Power, covering for Dr. Goodman, who will admit. - Lab Data Result diagrams: 12/17/19 07:29 12/17/19 07:29 Lab Results 12/17/19 12/17/19 12/17/19 Range/Units 07:29 07:29 07:29 WBC 11.1 H (3.8-10.6) k/uL RBC 5.42 (4.30-5.90) m/uL Hgb 17.2 (13.0-17.5) gm/dL Hct 51.7 (39.0-53.0) % MCV 95.3 (80.0-100.0) fL MCH 31.6 (25.0-35.0) pg MCHC 33.2 (31.0-37.0) g/dL RDW 12.7 (11.5-15.5) % Plt Count 251 (150-450) k/uL Neutrophils % 78 % Lymphocytes % 13 % Monocytes % 6 % Eosinophils % 1 % Basophils % 1 % Neutrophils # 8.6 H (1.3-7.7) k/uL Lymphocytes # 1.4 (1.0-4.8) k/uL Monocytes # 0.6 (0-1.0) k/uL Eosinophils # 0.2 (0-0.7) k/uL Basophils # 0.1 (0-0.2) k/uL PT 9.6 (9.0-12.0) sec INR 0.9 (<1.2) APTT 23.7 (22.0-30.0) sec Sodium (137-145) mmol/L Potassium (3.5-5.1) mmol/L Chloride (98-107) mmol/L Carbon Dioxide (22-30) mmol/L Anion Gap mmol/L BUN (9-20) mg/dL Creatinine (0.66-1.25) mg/dL Est GFR (CKD-EPI)AfAm (>60 ml/min/1.73 sqM) Est GFR (CKD-EPI)NonAf (>60 ml/min/1.73 sqM) Glucose (74-99) mg/dL Calcium (8.4-10.2) mg/dL Total Bilirubin (0.2-1.3) mg/dL AST (17-59) U/L ALT (4-49) U/L Alkaline Phosphatase (38-126) U/L Total Protein (6.3-8.2) g/dL Albumin (3.5-5.0) g/dL Amylase (30-110) U/L Lipase (23-300) U/L Urine Color Yellow Urine Appearance Clear (Clear) Urine pH 6.0 (5.0-8.0) Ur Specific [place] 1.014 (1.001-1.035) Urine Protein Trace H (Negative) Urine Glucose (UA) Negative (Negative) Urine Ketones 1+ H (Negative) Urine Blood Negative (Negative) Urine Nitrite Negative (Negative) Urine Bilirubin Negative (Negative) Urine Urobilinogen <2.0 (<2.0) mg/dL Ur Leukocyte Esterase Negative (Negative) 12/17/19 Range/Units 07:29 WBC (3.8-10.6) k/uL RBC (4.30-5.90) m/uL Hgb (13.0-17.5) gm/dL Hct (39.0-53.0) % MCV (80.0-100.0) fL MCH (25.0-35.0) pg MCHC (31.0-37.0) g/dL RDW (11.5-15.5) % Plt Count (150-450) k/uL Neutrophils % % Lymphocytes % % Monocytes % % Eosinophils % % Basophils % % Neutrophils # (1.3-7.7) k/uL Lymphocytes # (1.0-4.8) k/uL Monocytes # (0-1.0) k/uL Eosinophils # (0-0.7) k/uL Basophils # (0-0.2) k/uL PT (9.0-12.0) sec INR (<1.2) APTT (22.0-30.0) sec Sodium 134 L (137-145) mmol/L Potassium 4.4 (3.5-5.1) mmol/L Chloride 104 (98-107) mmol/L Carbon Dioxide 22 (22-30) mmol/L Anion Gap 8 mmol/L BUN 10 (9-20) mg/dL Creatinine 0.85 (0.66-1.25) mg/dL Est GFR (CKD-EPI)AfAm >90 (>60 ml/min/1.73 sqM) Est GFR (CKD-EPI)NonAf >90 (>60 ml/min/1.73 sqM) Glucose 140 H (74-99) mg/dL Calcium 9.4 (8.4-10.2) mg/dL Total Bilirubin 1.1 (0.2-1.3) mg/dL AST 62 H (17-59) U/L ALT 55 H (4-49) U/L Alkaline Phosphatase 82 (38-126) U/L Total Protein 7.7 (6.3-8.2) g/dL Albumin 4.4 (3.5-5.0) g/dL Amylase 104 (30-110) U/L Lipase 504 H (23-300) U/L Urine Color Urine Appearance (Clear) Urine pH (5.0-8.0) Ur Specific [place] (1.001-1.035) Urine Protein (Negative) Urine Glucose (UA) (Negative) Urine Ketones (Negative) Urine Blood (Negative) Urine Nitrite (Negative) Urine Bilirubin (Negative) Urine Urobilinogen (<2.0) mg/dL Ur Leukocyte Esterase (Negative) - Radiology Data Radiology results: image reviewed (Computed tomography scan of the abdomen pelvis does show some inflammation of the pancreas) Disposition Clinical Impression: Pancreatitis Disposition: ADMITTED IP TO THIS HOSP Is patient prescribed a controlled substance at d/c from ED?: No Referrals: Florencio Goodman MD [Primary Care Provider] - 1-2 days Decision Time: 09:30
[2019-12-17 07:55] LABS: Appearance,Urine Clear (Clear); Bilirubin,Urine Negative (Negative); Blood,Urine Negative (Negative); Color,Urine Yellow; Glucose,Urine (UA) Negative (Negative); Ketones,Urine 1+ (Negative); Leukocyte Esterase,Urine Negative (Negative); Nitrite,Urine Negative (Negative); Protein,Urine Trace (Negative); Specific Gravity,Urine 1.014 (1.001-1.035); Urobilinogen,Urine <2.0 mg/dL (<2.0)
[2019-12-17 07:56] LABS: ALT 55 U/L (4-49); AST 62 U/L (17-59); African American GFR (CKD) >90 (>60 ml/min/1.73 sqM); Albumin 4.4 g/dL (3.5-5.0); Alkaline Phosphatase 82 U/L (38-126); Amylase 104 U/L (30-110); Anion Gap 8 mmol/L; Blood Urea Nitrogen 10 mg/dL (9-20); Calcium 9.4 mg/dL (8.4-10.2); Carbon Dioxide 22 mmol/L (22-30); Chloride 104 mmol/L (98-107); Glucose 140 mg/dL (74-99); Non-African American GFR(CKD) >90 (>60 ml/min/1.73 sqM); Potassium 4.4 mmol/L (3.5-5.1); Sodium 134 mmol/L (137-145); Total Bilirubin 1.1 mg/dL (0.2-1.3); Total Protein 7.7 g/dL (6.3-8.2)
[2019-12-17 08:01] LABS: Basophils # (A) 0.1 k/uL (0-0.2); Basophils % (A) 1 %; Eosinophils # (A) 0.2 k/uL (0-0.7); Eosinophils % (A) 1 %; HCT 51.7 % (39.0-53.0); HGB 17.2 gm/dL (13.0-17.5); Lymphocytes # (A) 1.4 k/uL (1.0-4.8); Lymphocytes % (A) 13 %; MCH 31.6 pg (25.0-35.0); MCHC 33.2 g/dL (31.0-37.0); MCV 95.3 fL (80.0-100.0); Mean Platelet Volume 6.9; Monocytes # (A) 0.6 k/uL (0-1.0); Monocytes % (A) 6 %; Neutrophils # (A) 8.6 k/uL (1.3-7.7); Neutrophils % (A) 78 %; Platelet Count 251 k/uL (150-450); RBC 5.42 m/uL (4.30-5.90); RDW 12.7 % (11.5-15.5); WBC 11.1 k/uL (3.8-10.6)
[2019-12-17 08:13] LABS: INR 0.9 (<1.2); Partial Thromboplastin Time 23.7 sec (22.0-30.0); Prothrombin Time 9.6 sec (9.0-12.0)
--- NOTE | 2019-12-17 08:27 | CT ---
EXAMINATION TYPE: CT abdomen pelvis w con DATE OF EXAM: 12/17/2019 COMPARISON: 12/30/2018 HISTORY: 54-year-old male abdominal pain and chest pressure TECHNIQUE: Contiguous axial scanning of the abdomen and pelvis following administration of 100 ml Iso brianne 300 IV contrast. Delayed images through the kidneys and coronal/sagittal reconstructions perform ed. CT DLP: 1441 mGycm Automated exposure control for dose reduction was used. FINDINGS: LUNG BASES: No significant abnormality is appreciated. Some dependent atelectasis is present. LIVER/GB: Liver enlarged measuring 20.0 cm caudal with diffuse low-attenuation. Some fatty sparing al chalo the gallbladder fossa. No abnormal gallbladder distention. No biliary ductal dilatation. Portal v enous system is patent. PANCREAS: There is some fat stranding which extends down from the level of the pancreatic body/tail. Some additional strandy density located along the superior margin, axial image 32 and 39 for example. No discrete fluid collection. SPLEEN: No significant abnormality is seen. ADRENALS: Stable minimal thickening of the right adrenal gland without discrete nodularity. KIDNEYS: No significant abnormality is seen. Circumaortic left renal vein. LYMPH NODES: No mesenteric or retroperitoneal lymphadenopathy. BOWEL: No dilated small bowel, free fluid, or free air. Normal appendix. Mild stool burden. Occasion al sigmoid diverticular change. Stable line along the distal sigmoid from prior resection and reanast omosis. No pericolonic inflammatory change. Mild atherosclerotic calcifications throughout the infrar enal abdominal aorta and iliac arteries. Tiny fatty umbilical hernia. PELVIS: Mild cervical bladder wall thickening. Central prosthetic calcifications. No abnormal fluid c ollection in the pelvis or pelvic lymphadenopathy. BONES: Status post laminectomy change at L4. Moderate to advanced degenerative disc disease L5-S1 and moderate at L4-L5. Facet arthropathy lower lumbar spine. IMPRESSION: 1. SOME SUBTLE FAT STRANDING ADJACENT TO THE PANCREATIC BODY AND TAIL. CORRELATE FOR MILD ACUTE INTER STITIAL PANCREATITIS. 2. HEPATOMEGALY (20.0 CM) WITH MODERATE TO SEVERE HEPATIC STEATOSIS. 3. MILD CIRCUMFERENTIAL BLADDER WALL THICKENING. CORRELATE TO EXCLUDE CYSTITIS.
[2019-12-17] MEDS ORDERED: HYDROmorphone 0.5 MG/0.5 ML SYRINGE IVP STA (08:31)
[2019-12-17] MEDS ORDERED: ONDANSETRON 4 MG/2 ML VIAL IVP PRN (09:30)
[2019-12-17] MEDS ORDERED: NALOXONE 0.4 MG/ML 1 ML VIAL IV PRN (09:30)
[2019-12-17] MEDS ORDERED: HYDROmorphone 0.5 MG/0.5 ML SYRINGE IVP PRN (09:30)
[2019-12-17] MEDS: SODIUM CHLORIDE 0.9% 1,000 ML IV SCH ×2 (09:43→18:00)
[2019-12-17] MEDS: HYDROmorphone 1 MG/ML 1 ML SYRINGE IVP PRN ×4 (11:00→21:00)
--- NOTE | 2019-12-17 18:26 | CONS ---
CONSULTATION DATE OF DICTATION: 12/17/2019 REASON FOR CONSULTATION: Acute pancreatitis. HISTORY OF PRESENT ILLNESS: The patient is a 54-year-old pleasant white male with history of heavy alcohol abuse of several years' duration, admitted to the hospital with acute onset of severe epigastric pain associated with nausea and vomiting that started yesterday morning. The pain continued to progressively get worse. He threw up a couple of times with some nausea. He came to the emergency room and was noted to have elevated lipase consistent with acute pancreatitis. He never had these symptoms in the past. He usually drinks about a fifth of alcohol on a daily basis. Recently he tried to cut down on the drinking, with no help. PAST MEDICAL HISTORY: Significant for anxiety, depression, alcohol abuse. MEDICATIONS: Medications at home include Flexeril, Zoloft, Lamictal, [place], terbinafine. ALLERGIES: CATAPRES. SOCIAL HISTORY: Chronic smoker. Alcohol use as mentioned above. PAST SURGICAL HISTORY: Sigmoid colon resection for acute diverticulitis many years ago. FAMILY HISTORY: Father healthy. Mother with congestive heart failure. REVIEW OF SYSTEMS: CARDIOPULMONARY: No chest pain or shortness of breath. GENITOURINARY: No dysuria or hematuria. MUSCULOSKELETAL: Unremarkable. SKIN: Unremarkable. ENDOCRINE: Unremarkable. PSYCHIATRIC: Unremarkable. NEUROLOGY: Unremarkable. ENT/VISION: Unremarkable. CONSTITUTIONAL: No recent weight loss. No fever, chills, night sweats. PHYSICAL EXAMINATION: Blood pressure is 151/105, pulse rate 108, temperature 99. HEENT examination unremarkable. Conjunctivae pink. Sclerae anicteric. Oral cavity no lesions. NECK: No JVD or lymph node enlargement. CHEST: Clear to auscultation. HEART: Regular rate and rhythm. ABDOMEN: Soft. Mild tenderness in the epigastric area. There was minimal tenderness in the left upper quadrant and right upper quadrant areas. Rest of the abdomen was benign. Bowel sounds are positive. EXTREMITIES: No pedal edema. SKIN: No rashes. NEUROLOGIC: Alert and oriented x3. No focal deficits. LABS/IMAGING: WBC 11.1, hemoglobin 17.2, platelets normal. Basic metabolic panel is within normal limits. PT/INR is normal. AST 62, ALT 55. T-bilirubin and alkaline phosphatase are normal. Lipase was 504. CT of the abdomen and pelvis done in the emergency room early this morning showed normal-appearing gallbladder with no gallstones. Liver had diffuse low attenuation consistent with fatty liver. Pancreas showed some fat stranding which extends down to the level of the pancreatic body tail consistent with acute pancreatitis. IMPRESSION: 1. Acute onset of epigastric pain associated with nausea and vomiting for the last 2 days' duration and elevated lipase, all consistent with acute pancreatitis most likely related to alcohol abuse. Patient has history of heavy alcohol abuse for several years' duration. CT of the abdomen showed evidence of acute pancreatitis but no evidence of gallstones. 2. Mild elevation of serum transaminases, most likely related to alcoholic liver disease. Doubt biliary pancreatitis. 3. History of alcohol abuse. 4. History of anxiety and depression. RECOMMENDATIONS: 1. Protonix 40 mg twice daily. 2. Pain medications as needed. 3. Aggressive IV hydration. 4. Will start him on clear liquids today. 5. Repeat labs in the morning. 6. I had a lengthy discussion with the patient about the importance of abstinence from alcohol. 7. Will follow with you closely. Thank you for this consultation. MMODL / IJN: [id number] /
--- NOTE | 2019-12-17 18:31 | P.HPIM ---
History of Present Illness H&P Date: 12/17/19 Chief Complaint: Abdominal discomfort 54-year-old male presented to the emergency department with the complaint of abdominal discomfort with associated nausea for 2 day duration. Patient stated symptoms progressively worsened over the last 2 days. Patient denies vomiting, diarrhea, or constipation. Patient denies fever, chills, shortness of breath, or chest discomfort. Patient has extensive history of diverticulitis with 10 inches of colon removed. Diagnostic and imaging for emergency department are consistent with pancreatitis. Patient had a elevated l ipase of 504. CT abdomen and pelvis reveals some inflammation of the pancreas. Patient states drinks 6 pack of beer 3 times a week. Gastroenterology consulted for pancreatitis. Review of Systems Constitutional: Reports chronic headaches, Reports fatigue, Reports poor appetite, Reports sweats, Reports weakness Gastrointestinal: Reports abdominal pain, Reports nausea Musculoskeletal: Reports muscle weakness Neurological: Reports headaches Psychiatric: Reports anxiety Past Medical History Past Medical History: COPD, Hyperlipidemia, Hypertension, Osteoarthritis (OA) Additional Past Medical History / Comment(s): degenerative disc in back, cervical spondylosis, diverticulitis , History of Any Multi-Drug Resistant Organisms: C-DIFF Date of last positivie culture/infection: 2006 MDRO Source:: stool Past Surgical History: Bowel Resection Additional Past Surgical History / Comment(s): COLONOSCOPY; 10 inches of colon removed from diverticulosis., pt had scrotal lump removed, PAIN CLINIC PROCEDURE, right rotator cuff Past Anesthesia/Blood Transfusion Reactions: No Reported Reaction Past Psychological History: Anxiety, Bipolar, Depression Smoking Status: Current every day smoker Past Alcohol Use History: Occasional (6 pack of beer 3 times weekly per patient) Additional Past Alcohol Use History / Comment(s): SMOKED SINCE 1982, 1 PPD. Past Drug Use History: None Reported - Past Family History Father Family Medical History: No Reported History Mother Family Medical History: Congestive Heart Failure (CHF) Medications and Allergies Home Medications and Allergies Comment(s): Medications and ALLERGIES reviewed Home Medications Medication Instructions Recorded Confirmed Type Cyclobenzaprine [Flexeril] 10 mg PO TID 11/01/17 12/17/19 History Sertraline [Zoloft] 100 mg PO DAILY 03/22/18 12/17/19 History lamoTRIgine [LaMICtal] 150 mg PO DAILY 12/01/18 12/17/19 History HYDROcodone/APAP 7.5-325MG [[place] 1 tab PO TID PRN 12/17/19 12/17/19 History 7.5] terbinafine HCL [Terbinafine HCl] 250 mg PO DAILY 12/17/19 12/17/19 History Allergies Allergy/AdvReac Type Severity Reaction Status Date / Time clonidine [From Catapres] AdvReac Vomiting Verified 12/17/19 09:13 Physical Exam Vitals: Vital Signs Temp Pulse Pulse Resp BP BP Pulse Ox 12/17/19 16:00 87 18 12/17/19 15:00 98.6 F 87 161/104 95 12/17/19 10:34 98.3 F 83 168/104 97 12/17/19 08:24 98.7 F 90 18 149/84 100 12/17/19 07:09 99 F 108 H 18 151/105 98 Intake and Output 12/17/19 12/17/19 12/17/19 06:59 14:59 22:59 Other: # Voids 1 1 Weight 95.254 kg - Constitutional General appearance: obese - EENT Eyes: EOMI, PERRLA Ears: bilateral: normal - Neck Acute on chronic Pain with flexion, extension, and rotation Carotids: bilateral: upstroke normal Thyroid: bilateral: normal size - Respiratory Respiratory: bilateral: diminished (Posterior bases) - Cardiovascular Normal sinus rhythm Heart rate: 87 Rhythm: regular Heart sounds: normal: S1, S2 - Gastrointestinal General gastrointestinal: decreased bowel sounds, tenderness (Epigastric with radiation to left lower quadrant) - Integumentary Integumentary: flushed - Neurologic Neurologic: CNII-XII intact, focal deficits - Musculoskeletal Musculoskeletal: strength equal bilaterally - Psychiatric Psychiatric: A&O x's 3, intact judgment & insight Results CBC & Chem 7: 12/17/19 07:29 12/17/19 07:29 Labs: Abnormal Lab Results - Last 24 Hours (Table) 12/17/19 12/17/19 12/17/19 Range/Units 07:29 07:29 07:29 WBC 11.1 H (3.8-10.6) k/uL Neutrophils # 8.6 H (1.3-7.7) k/uL Sodium 134 L (137-145) mmol/L Glucose 140 H (74-99) mg/dL AST 62 H (17-59) U/L ALT 55 H (4-49) U/L Lipase 504 H (23-300) U/L Urine Protein Trace H (Negative) Urine Ketones 1+ H (Negative) CT scan - abdomen: report reviewed Thrombosis Risk Factor Assmnt - Choose All That Apply Any of the Below Risk Factors Present?: Yes Each Factor Represents 1 point: Age 41-60 years Thrombosis Risk Factor Assessment Total Risk Factor Score: 1 Thrombosis Risk Factor Assessment Level: Low Risk Assessment and Plan Assessment: Pancreatitis Bipolar disorder COPD Hyperlipidemia Hypertension History of diverticulitis Anxiety Depression Degenerative disc disease (1) Pancreatitis Current Visit: Yes Status: Acute Code(s): K85.90 - ACUTE PANCREATITIS WITHOUT NECROSIS OR INFECTION, UNSP SNOMED Code(s): 08737691 (2) Alcohol dependence Current Visit: No Status: Acute Priority: High Code(s): F10.20 - ALCOHOL DEPENDENCE, UNCOMPLICATED SNOMED Code(s): 35337407 Plan: Pancreatitis-clear liquid diet with pain control Consult gastroenterology regarding recommendations of pancreatitis Reevaluate patient in a.m. for abdominal discomfort with nausea. Time with Patient: Greater than 30
[2019-12-17] MEDS: lamoTRIgine 100 MG TAB PO SCH (19:12)
[2019-12-17] MEDS: SERTRALINE 100 MG TAB PO SCH (19:12)
[2019-12-17] MEDS: lisinopriL 10 MG TAB PO SCH (19:12)
[2019-12-17] MEDS: NICOTINE 21MG/24HR PATCH TRANSDERM SCH (19:13)
[2019-12-17] MEDS: CYCLOBENZAPRINE 10 MG TAB PO SCH (21:01)
[2019-12-18] MEDS: HYDROmorphone 1 MG/ML 1 ML SYRINGE IVP PRN ×3 (00:27→06:14)
[2019-12-18] MEDS: SODIUM CHLORIDE 0.9% 1,000 ML IV SCH ×2 (03:14→14:47)
[2019-12-18 06:23] LABS: Basophils % (A) 1 %; Eosinophils # (A) 0.2 k/uL (0-0.7); Eosinophils % (A) 3 %; HCT 44.5 % (39.0-53.0); HGB 14.3 gm/dL (13.0-17.5); Lymphocytes # (A) 1.9 k/uL (1.0-4.8); Lymphocytes % (A) 24 %; MCH 31.4 pg (25.0-35.0); MCHC 32.1 g/dL (31.0-37.0); MCV 97.6 fL (80.0-100.0); Mean Platelet Volume 7.2; Monocytes # (A) 0.4 k/uL (0-1.0); Monocytes % (A) 6 %; Neutrophils % (A) 65 %; Platelet Count 194 k/uL (150-450); RBC 4.56 m/uL (4.30-5.90); RDW 12.7 % (11.5-15.5); WBC 7.7 k/uL (3.8-10.6)
[2019-12-18] MEDS ORDERED: PANTOPRAZOLE 40 MG/10 ML VIAL IV SCH (09:00)
[2019-12-18] MEDS: NICOTINE 21MG/24HR PATCH TRANSDERM SCH (09:16)
[2019-12-18] MEDS: SERTRALINE 100 MG TAB PO SCH (09:16)
[2019-12-18] MEDS: CYCLOBENZAPRINE 10 MG TAB PO SCH (09:16)
[2019-12-18] MEDS: lisinopriL 10 MG TAB PO SCH (09:16)
[2019-12-18] MEDS: lamoTRIgine 100 MG TAB PO SCH (09:30)
[2019-12-18 10:01] LABS: African American GFR (CKD) 113.4 (60.0-200.0); Albumin 3.6 g/dL (3.80-4.90); Albumin/Globulin Ratio 1.8 (1.60-3.17); Anion Gap 5.6 mmol/L (4.00-12.00); BUN/Creat Ratio 11.11 Ratio (12.00-20.00); Calcium 8.4 mg/dL (8.7-10.3); Carbon Dioxide 27.4 mmol/L (21.6-31.8); Chol/HDL Ratio 3.38; Non-African American GFR(CKD) 97.9 (60.0-200.0); Total Bilirubin 1.2 mg/dL (0.2-1.2); Total Protein 5.6 g/dL (6.2-8.2)
[2019-12-18 10:06] LABS: Urine Alcohol Negative (Negative); Urine Barbiturate Negative (Negative); Urine Cocaine Negative (Negative); Urine Methadone Negative (Negative); Urine Opiates Positive (Negative); Urine Phencyclidine Negative (Negative)
--- NOTE | 2019-12-18 10:09 | P.PN ---
Subjective Progress Note Date: 12/18/19 Principal diagnosis: Acute pancreatitis Abdominal pain 54-year-old male was admitted through the emergency department for abdominal discomfort with associated nausea. Patient found to have elevated lipase and CAT scan of abdomen and pelvis revealing a pancreatitis. Patient continues to require IV pain medication for pain control for abdominal discomfort; oral pain medications added for breakthrough pain. Patient tolerating clear liquid diet Objective - Vital Signs Vital signs: Vital Signs Temp 98.1 F 12/18/19 08:21 Pulse 79 12/18/19 08:21 Resp 18 12/18/19 08:21 BP 145/92 12/18/19 08:21 Pulse Ox 96 12/18/19 08:21 Intake & Output 12/17/19 12/18/19 12/18/19 18:59 06:59 18:59 Weight 95.254 kg Other: # Voids 1 3 - Constitutional General appearance: Present: obese - EENT Eyes: Present: EOMI, PERRLA Ears: bilateral: normal - Neck Neck: Present: normal ROM Carotids: bilateral: upstroke normal Thyroid: bilateral: normal size - Respiratory Respiratory: bilateral: CTA - Cardiovascular Details: Normal sinus rhythm Heart rate: 78 Rhythm: regular Heart sounds: normal: S1, S2 - Gastrointestinal General gastrointestinal: Present: normal bowel sounds, soft, tenderness (Epigastric with radiation to left lower quadrant) - Integumentary Integumentary: Present: normal, normal turgor - Neurologic Neurologic: Present: CNII-XII intact - Musculoskeletal Musculoskeletal: Present: gait normal - Psychiatric Psychiatric: Present: A&O x's 3, appropriate affect, intact judgment & insight - Labs CBC & Chem 7: 12/18/19 05:57 12/17/19 07:29 - Imaging and Cardiology CT scan - pelvis: report reviewed Assessment and Plan Assessment: Pancreatitis Bipolar disorder COPD Hyperlipidemia Hypertension History of diverticulitis Anxiety Depression Degenerative disc disease (1) Pancreatitis Current Visit: Yes Status: Acute Code(s): K85.90 - ACUTE PANCREATITIS WITHOUT NECROSIS OR INFECTION, UNSP SNOMED Code(s): 79180442 (2) Alcohol dependence Current Visit: Yes Status: Acute Priority: High Code(s): F10.20 - ALCOHOL DEPENDENCE, UNCOMPLICATED SNOMED Code(s): 52812914 Plan: Pancreatitis-clear liquid diet with pain control Consult gastroenterology regarding recommendations of pancreatitis Oral analgesic therapy initiated, attempting to decrease IV pain medication Time with Patient: Less than 30
[2019-12-18] MEDS ORDERED: HYDROcodone/APAP 7.5-325MG 1 EACH TAB PO PRN (10:28)
[2019-12-18 12:21] VITALS: BP 126/63; PULSE 82; RESP 16; TEMP 98.5
--- NOTE | 2019-12-18 16:01 | P.PN ---
Subjective Progress Note Date: 12/18/19 Principal diagnosis: Acute pancreatitis Patient was seen and examined at the bedside. He was admitted for severe epigastric pain associated with nausea and vomiting. He had an elevated lipase CT of the abdomen which showed mild pancreatitis. He has a history of heavy alcohol abuse for several years duration. The patient denies any nausea or vomiting currently. He states he still has moderate amount of abdominal pain. He has been getting pain medication every 3 hours. He is tolerating his clear liquids. Objective - Vital Signs Vital signs: Vital Signs Temp 98.1 F 12/18/19 08:21 Pulse 79 12/18/19 08:21 Resp 18 12/18/19 08:21 BP 145/92 12/18/19 08:21 Pulse Ox 96 12/18/19 08:21 Intake & Output 12/17/19 12/18/19 12/18/19 18:59 06:59 18:59 Weight 95.254 kg Other: # Voids 1 3 - Exam General appearance: The patient is alert, oriented, in no acute distress. HET: Head is normocephalic and atraumatic. Conjunctiva pink. Sclera anicteric. Neck: Supple without lymphadenopathy. Abdomen: Soft, tender, nondistended with bowel sounds. No guarding or rigidity. Extremities: Normal skin color and turgor. No pedal edema Neurological: No focal deficits. Alert and oriented 3. - Labs CBC & Chem 7: 12/18/19 05:57 12/18/19 05:57 Labs: Abnormal Lab Results - Last 24 Hours (Table) 12/18/19 12/18/19 Range/Units 00:34 05:57 BUN/Creatinine Ratio 11.11 L (12.00-20.00) Ratio Calcium 8.4 L (8.7-10.3) mg/dL Total Protein 5.6 L (6.2-8.2) g/dL Albumin 3.60 L (3.80-4.90) g/dL Lipase 66 H (14-60) U/L Urine Opiates Screen Positive H (Negative) ng/mL Assessment and Plan Assessment: 1. Acute onset of epigastric pain associated with nausea and vomiting for the last 2 days duration with elevated lipase CONSISTENT with acute pancreatitis mos t likely related to alcohol abuse. Yuri has a history of heavy alcohol abuse for several years duration with a CT of the abdomen showing evidence of acute pancreatitis but no evidence of gallstones. Lipase improved from 505-66. 2. Mild elevation of serum transaminases, most likely related to alcoholic liver disease. Doubt biliary pancreatitis. Today's labs are normal. 3. History of alcohol abuse 4. History of anxiety and depression Plan: 1. Supportive care 2. Protonix 40 mg twice daily 3. Pain medication as needed 4. Advance to full liquid diet 5. Alcohol abstinence 6. Outpatient follow-up The impression and plan of care has been dictated as directed. Dr. Adelita Olivera I performed a history and examination of this patient, discussed the same with the dictator. I agree with the dictator's note ,documented as a scribe. Any a dditional findings or plans will be noted.
--- NOTE | 2019-12-18 19:01 | P.DS ---
Providers Date of admission: 12/17/19 09:30 Expected date of discharge: 12/18/19 Attending physician: Floerncio Goodman Consults: 12/17/19 09:30 Consult Physician Urgent Consulting Provider: Arabella Olivera Consult Reason/Comments: Acute pancreatitis Do you want consulting provider notified?: Yes Primary care physician: Florencio Goodman - Discharge Diagnosis(es) (1) Pancreatitis Patient had an Acute onset of epigastric pain associated with nausea and vomiting for the last 2 days duration with elevated lipase CONSISTENT with acute pancreatitis most likely related to alcohol abuse. Patient has a history of heavy alcohol abuse for several years duration with a CT of the abdomen showing evidence of acute pancreatitis but no evidence of gallstones. Lipase improved from 505-66. Status: Acute (2) Alcohol dependence Patient admitted during admission sixpack of beer 3 times weekly for alcohol dependence. Patient counseled regarding alcohol dependence related to acute pancreatitis. Patient encouraged to abstain from alcohol Status: Acute Priority: High Hospital Course: 54-year-old male presented to the emergency room for abdominal pain for 2 day duration with associated nausea. Patient pain epigastric radiation to left lower quadrant upon light palpation. Extensive workup for abdominal pain was provided in the emergency room diagnostics labs and imaging revealed acute pancreatitis during hospital stay patient required IV pain medication progressed oral analgesics for pain and discomfort; patient's diet progressed from clear liquids to solids with toleration. Gastroenterology was consulted and recommen dation for Protonix and abstaining from alcohol to follow-up within 2-3 weeks with their service. Assessment: Acute pancreatitis Alcohol dependence Bipolar disorder COPD Hyperlipidemia Hypertension History of diverticulitis Anxiety Depression Degenerative disc disease Health Concerns: None noted Pertinent Studies: CT abdomen and pelvisrevealing acute pancreatitis Procedures: No procedures performed Patient Condition at Discharge: Good Plan - Discharge Summary Discharge Rx Participant: Yes New Discharge Prescriptions: New lisinopriL [Zestril] 10 mg PO DAILY tab Continue Cyclobenzaprine [Flexeril] 10 mg PO TID Sertraline [Zoloft] 100 mg PO DAILY lamoTRIgine [LaMICtal] 150 mg PO DAILY terbinafine HCL [Terbinafine HCl] 250 mg PO DAILY HYDROcodone/APAP 7.5-325MG [[place] 7.5-325] 1 tab PO TID PRN PRN Reason: Pain Discharge Medication List Cyclobenzaprine [Flexeril] 10 mg PO TID 11/01/17 [History] Sertraline [Zoloft] 100 mg PO DAILY 03/22/18 [History] lamoTRIgine [LaMICtal] 150 mg PO DAILY 12/01/18 [History] HYDROcodone/APAP 7.5-325MG [[place] 7.5-325] 1 tab PO TID PRN 12/17/19 [History] terbinafine HCL [Terbinafine HCl] 250 mg PO DAILY 12/17/19 [History] lisinopriL [Zestril] 10 mg PO DAILY tab 12/18/19 [Rx] Follow up Appointment(s)/Referral(s): Florencio Goodman MD [Primary Care Provider] - 1-2 days Yasmine Koroma PAC [REFERRING] - 2 Weeks (1-2 weeks) Patient Instructions/Handouts: Pancreatitis (DC), Abuse of Alcohol (DC) Discharge Disposition: HOME SELF-CARE
== END 2019-12-18 14:48 | disposition home or self-care (01) | DRG 440 ==
LOC: EC 06:58 → 4SSUR 09:30
PROVIDERS: ADMIT Family Medicine; ATTEND Family Medicine
DX: K85.20 Alcohol induced acute pancreatitis without necrosis or infection (principal); K70.9 Alcoholic liver disease, unspecified; E78.5 Hyperlipidemia, unspecified; F10.20 Alcohol dependence, uncomplicated; F17.200 Nicotine dependence, unspecified, uncomplicated; F31.9 Bipolar disorder, unspecified; F41.9 Anxiety disorder, unspecified; I10 Essential (primary) hypertension; J44.9 Chronic obstructive pulmonary disease, unspecified; K57.30 Diverticulosis of large intestine without perforation or abscess without bleeding; M19.90 Unspecified osteoarthritis, unspecified site; M47.812 Spondylosis without myelopathy or radiculopathy, cervical region; Z79.899 Other long term (current) drug therapy; Z90.49 Acquired absence of other specified parts of digestive tract; Z88.8 Allergy status to other drugs, medicaments and biological substances; Z98.890 Other specified postprocedural states; Z82.49 Family history of ischemic heart disease and other diseases of the circulatory system
CPT/HCPCS: 36415; 74177; 80053; 80061; 80306; 81003; 82150; 83615; 83690; 85025; 85610; 85730; 96361; 96374; 96375; 99285

== ENCOUNTER 2020-01-07 09:41 | Day surgery (SDC) | payer MEDICARE, OTHER ==
[2020-01-05 13:29] VITALS: BMI 34.7
[~2020-01-07 09:41] MED LIST changes: -DEXAMETHASONE SOD PHOSPHATE 10 MG/ML 1 ML VIAL IV ONE; +LACTATED RINGERS 1,000 ML IV SCH; +LIDOCAINE 1% (10MG/ML) FOR IV START INTRADERMA PRN; -LIDOCAINE 1% 20 ML VIAL (10MG/ML) FOR IV START INTRADERMA PRN; -MIDAZOLAM 2 MG/2 ML VIAL IV PRN; -fentaNYL (PF) 50 MCG/ML 2 ML AMP IV PRN; -fentaNYL (PF) 50 MCG/ML 2 ML AMP IVP PRN
[2020-01-07 10:39] VITALS: RESP 16; TEMP 97
[2020-01-07] MEDS ORDERED: PROPOFOL 10 MG/ML 20 ML VIAL IV ONE (10:54)
--- NOTE | 2020-01-07 10:56 | P.GSHP ---
History of Present Illness H&P Date: 01/07/20 Chief Complaint: History of diverticulitis This a 52-year-old male presents today for colonoscopy. He is appears history of diverticulitis. He's had previous sigmoid resection. Past Medical History Past Medical History: Musculoskeletal Disorder Additional Past Medical History / Comment(s): DDD, BACK AND RIGHT SHOULDER PAIN., HX DIVERTICULOSIS WITH BOWEL RESECTION., HX C-DIFF (2006)., HOSPITALIZATION NOV 2019 FOR PANCREATITIS. History of Any Multi-Drug Resistant Organisms: None Reported Date of last positivie culture/infection: 2006 MDRO Source:: stool Past Surgical History: Bowel Resection, Orthopedic Surgery Additional Past Surgical History / Comment(s): COLONOSCOPY; 10 inches of colon removed from diverticulosis., scrotal lump removed, PAIN CLINIC PROCEDURE, right rotator cuff X2, LEFT ROTATOR CUFF. Past Anesthesia/Blood Transfusion Reactions: No Reported Reaction Past Psychological History: Anxiety, Bipolar, Depression Smoking Status: Current every day smoker Past Alcohol Use History: Abuse, Occasional Additional Past Alcohol Use History / Comment(s): SMOKED 1 PPD, SMOKING SINCE 1982. HX OF HEAVY ALCOHOL USE., STATES OCCASIONAL ALCOHOL SINCE HOSPITALIZATION. Past Drug Use History: Marijuana Additional Drug Use History / Comment(s): OCCASIONAL MARIJUANA - Past Family History Father Family Medical History: No Reported History Mother Family Medical History: Congestive Heart Failure (CHF) Medications and Allergies Home Medications Medication Instructions Recorded Confirmed Type Cyclobenzaprine [Flexeril] 10 mg PO TID 11/01/17 01/07/20 History Sertraline [Zoloft] 100 mg PO DAILY 03/22/18 01/07/20 History HYDROcodone/APAP 7.5-325MG [[place] 1 tab PO TID PRN 12/17/19 01/07/20 History 7.5-325] lamoTRIgine [LaMICtal] 100 mg PO DAILY 01/05/20 01/07/20 History Allergies Allergy/AdvReac Type Severity Reaction Status Date / Time clonidine [From Catapres] AdvReac Vomiting Verified 01/05/20 13:09 Surgical - Exam Vital Signs Temp Pulse Resp BP Pulse Ox 97.0 F L 88 16 169/100 96 01/07/20 10:36 01/07/20 10:36 01/07/20 10:36 01/07/20 10:36 01/07/20 10:36 - General well developed, well nourished, no distress - Eyes PERRL - ENT normal pinna - Neck no masses - Respiratory normal expansion - Cardiovascular Rhythm: regular - Abdomen Abdomen: soft, non tender Assessment and Plan Assessment: History of diverticulitis. We'll perform colonoscopy.
--- NOTE | 2020-01-07 11:05 | P.OP ---
Date of Procedure: 01/07/20 Preoperative Diagnosis: Diverticulitis Postoperative Diagnosis: Diverticulosis Procedure(s) Performed: Colonoscopy Anesthesia: MAC Surgeon: Maximus Amezcua Pathology: none sent Condition: stable Disposition: PACU Description of Procedure: The patient's placed on the endoscopy table in the lateral position. He received IV sedation. Digital rectal exam is performed which revealed no abnormalities. The possible colonoscope was then placed patient anus and passed throughout the entire colon. The ileocecal valve was visually is. The cecum, ascending and transverse colon appeared normal. In the descending colon there was a few scattered diverticula. The patient had a previous colon resection the anastomosis, revision is. The rectum appeared normal. Scope was withdrawn for patient.
[2020-01-07 11:30] VITALS: BP 146/100; PULSE 90
== END 2020-01-07 12:01 | disposition home or self-care (01) ==
LOC: ORWHC2ENDO 09:41
PROVIDERS: ATTEND Surgery
DX: K57.30 Diverticulosis of large intestine without perforation or abscess without bleeding (principal); E78.5 Hyperlipidemia, unspecified; E66.9 Obesity, unspecified; Z68.33 Body mass index [BMI] 33.0-33.9, adult; F31.9 Bipolar disorder, unspecified; J44.9 Chronic obstructive pulmonary disease, unspecified; M48.02 Spinal stenosis, cervical region; M47.812 Spondylosis without myelopathy or radiculopathy, cervical region; F17.210 Nicotine dependence, cigarettes, uncomplicated; R01.1 Cardiac murmur, unspecified; Z90.49 Acquired absence of other specified parts of digestive tract; Z98.890 Other specified postprocedural states; Z81.8 Family history of other mental and behavioral disorders; Z81.1 Family history of alcohol abuse and dependence; Z82.49 Family history of ischemic heart disease and other diseases of the circulatory system; F41.9 Anxiety disorder, unspecified; Z79.1 Long term (current) use of non-steroidal anti-inflammatories (NSAID); Z79.891 Long term (current) use of opiate analgesic; Z79.52 Long term (current) use of systemic steroids; Z79.899 Other long term (current) drug therapy; Z88.8 Allergy status to other drugs, medicaments and biological substances
CPT/HCPCS: 45378; J2704

== ENCOUNTER → 2020-05-24 | Outpatient (CLI) | payer MEDICARE, OTHER | END | disposition home or self-care (01) | LOC: LABWHC1 16:58 | PROVIDERS: ATTEND Family Medicine | DX: Z20.822 Contact with and (suspected) exposure to COVID-19 (principal) | CPT/HCPCS: U0003; C9803 ==

== ENCOUNTER 2020-05-25 17:08 | Emergency (ER) | payer MEDICARE, OTHER ==
[2020-05-25 19:58] VITALS: TEMP 98.2
[2020-05-25] MEDS ORDERED: SODIUM CHLORIDE 0.9% 1,000 ML IV STA (20:12)
[2020-05-25] MEDS ORDERED: ONDANSETRON 4 MG/2 ML VIAL IVP STA (20:12)
[2020-05-25] MEDS ORDERED: HYDROmorphone 0.5 MG/0.5 ML SYRINGE IVP STA ×2 (20:12→22:48)
[2020-05-25 20:32] LABS: Basophils # (A) 0.1 k/uL (0-0.2); Basophils % (A) 1 %; Eosinophils # (A) 0.4 k/uL (0-0.7); Eosinophils % (A) 5 %; HCT 46.3 % (39.0-53.0); HGB 15.9 gm/dL (13.0-17.5); Lymphocytes # (A) 2.9 k/uL (1.0-4.8); Lymphocytes % (A) 35 %; MCH 32.2 pg (25.0-35.0); MCHC 34.2 g/dL (31.0-37.0); MCV 93.9 fL (80.0-100.0); Mean Platelet Volume 7.2; Monocytes # (A) 0.4 k/uL (0-1.0); Monocytes % (A) 5 %; Neutrophils # (A) 4.2 k/uL (1.3-7.7); Neutrophils % (A) 52 %; Platelet Count 409 k/uL (150-450); RBC 4.93 m/uL (4.30-5.90); RDW 12.4 % (11.5-15.5); WBC 8.2 k/uL (3.8-10.6)
[2020-05-25 20:33] VITALS: RESP 18
[2020-05-25 20:37] LABS: Appearance,Urine Clear (Clear); Bilirubin,Urine Negative (Negative); Blood,Urine Negative (Negative); Color,Urine Light Yellow; Glucose,Urine (UA) Negative (Negative); Ketones,Urine Negative (Negative); Leukocyte Esterase,Urine Negative (Negative); Nitrite,Urine Negative (Negative); PH, Urine 5.5 (5.0-8.0); Protein,Urine Negative (Negative); Urobilinogen,Urine <2.0 mg/dL (<2.0)
[2020-05-25 20:43] LABS: ALT 31 U/L (4-49); AST 39 U/L (17-59); African American GFR (CKD) >90 (>60 ml/min/1.73 sqM); Albumin 3.7 g/dL (3.5-5.0); Alkaline Phosphatase 70 U/L (38-126); Anion Gap 10 mmol/L; Blood Urea Nitrogen 7 mg/dL (9-20); Calcium 9.6 mg/dL (8.4-10.2); Carbon Dioxide 27 mmol/L (22-30); Chloride 102 mmol/L (98-107); Glucose 121 mg/dL (74-99); Lipase 86 U/L (23-300); Non-African American GFR(CKD) >90 (>60 ml/min/1.73 sqM); Sodium 139 mmol/L (137-145); Total Bilirubin 0.5 mg/dL (0.2-1.3); Total Protein 7.1 g/dL (6.3-8.2)
[2020-05-25 20:52] LABS: Specific Gravity,Urine 1.004 (1.001-1.035)
--- NOTE | 2020-05-25 21:29 | ED ---
General Adult HPI - General Chief complaint: Upper Respiratory Infection Stated complaint: Covid+/Cough/SOB Time Seen by Provider: 05/25/20 19:45 Source: patient Mode of arrival: ambulatory Limitations: no limitations - History of Present Illness Initial comments: 54-year-old male patient presents to the emergency department today sent by physician to receive an infusion of bamlanivimab. Patient tested positive for COVID yesterday. Has been having symptoms for the last 7 or 8 days. Reports cough, congestion, nausea, and diarrhea. States that yesterday he started having pain to the left lower quadrant that radiates through to his back. Has history o f diverticulitis and states that this feels similar. Has been having diarrhea, denies bloody stools. Reports no appetite. Denies fever or chills. Patient denies any recent rash, chest pain, back pain, numbness, tingling, dizziness, weakness, hematuria, dysuria, urinary urgency, urinary frequency, headache, visual changes, or any other complaints. - Related Data Home Medications Medication Instructions Recorded Confirmed Cyclobenzaprine [Flexeril] 10 mg PO TID 11/01/17 01/07/20 Sertraline [Zoloft] 100 mg PO DAILY 03/22/18 01/07/20 HYDROcodone/APAP 7.5-325MG [[place] 1 tab PO TID PRN 12/17/19 01/07/20 7.5-325] lamoTRIgine [LaMICtal] 100 mg PO DAILY 01/05/20 01/07/20 Allergies Allergy/AdvReac Type Severity Reaction Status Date / Time clonidine [From Catapres] AdvReac Vomiting Verified 05/25/20 18:37 Review of Systems ROS Statement: Those systems with pertinent positive or pertinent negative responses have been documented in the HPI. ROS Other: All systems not noted in ROS Statement are negative. Past Medical History Past Medical History: COPD, Hyperlipidemia, Hypertension, Osteoarthritis (OA) Additional Past Medical History / Comment(s): degenerative disc in back, cerv ical spondylosis, diverticulitis , History of Any Multi-Drug Resistant Organisms: C-DIFF Date of last positivie culture/infection: 2005 MDRO Source:: stool Past Surgical History: Bowel Resection Additional Past Surgical History / Comment(s): COLONOSCOPY; 10 inches of colon r emoved from diverticulosis., pt had scrotal lump removed, PAIN CLINIC PROCEDURE, right rotator cuff Past Anesthesia/Blood Transfusion Reactions: No Reported Reaction Past Psychological History: Anxiety, Bipolar, Depression Smoking Status: Current every day smoker Past Alcohol Use History: Occasional Past Drug Use History: Marijuana - Past Family History Father Family Medical History: No Reported History Mother Family Medical History: Congestive Heart Failure (CHF) General Exam Limitations: no limitations General appearance: alert, in no apparent distress, other (This is a well- developed, well-nourished adult male patient in no acute distress. Vital signs upon presentation are temperature 97.7F, pulse 124, respirations 17, blood pressure 124/92, pulse ox 96% on room air.) Eye exam: Present: normal appearance, PERRL, EOMI. Absent: scleral icterus, conjunctival injection, periorbital swelling ENT exam: Present: normal exam, normal oropharynx, mucous membranes moist Respiratory exam: Present: normal lung sounds bilaterally. Absent: respiratory distress, wheezes, rales, rhonchi, stridor Cardiovascular Exam: Present: regular rate, normal rhythm, normal heart sounds. Absent: systolic murmur, diastolic murmur, rubs, gallop, clicks GI/Abdominal exam: Present: soft, normal bowel sounds. Absent: distended, tenderness, guarding, rebound, rigid Neurological exam: Present: alert, oriented X3, CN II-XII intact Psychiatric exam: Present: normal affect, normal mood Skin exam: Present: warm, dry, intact, normal color. Absent: rash Course Vital Signs 05/25/20 05/25/20 05/25/20 18:33 19:57 19:59 Temperature 97.7 F 98.2 F Pulse Rate 124 H 108 H Respiratory 17 22 22 Rate Blood Pressure 124/92 129/86 O2 Sat by Pulse 96 97 Oximetry 05/25/20 05/25/20 20:32 22:57 Temperature Pulse Rate 100 89 Respiratory 18 18 Rate Blood Pressure 132/77 156/95 O2 Sat by Pulse 99 97 Oximetry EKG Findings - EKG Comments: EKG Findings:: EKG obtained at 1845 shows normal sinus rhythm with a ventricular rate of 98, OK interval 144, QRS duration 86, QT 354, QTC 451. No evidence of ST elevation or depression. Medical Decision Making - Medical Decision Making 54-year-old male patient presents to the emergency department sent by his primary care physician to receive an infusion of bamlanivimab. As a positive for Covid on 05/24/2020. Is also reporting left lower quadrant abdominal pain radiating to the left low back and has history of diverticulitis. Labs reviewed and are unremarkable. CT abdomen and pelvis was obtained and was negative. Did show evidence for Covid pneumonia also redemonstrated on chest x-ray. Oxygen saturation is satisfactory. Vital signs are within normal ranges. We will i nfuse the BAM and discharge home. He is instructed to follow-up with his primary care physician for recheck in 1-2 days. Return parameters were discussed in detail. He verbalizes understanding and agrees this plan. Case discussed with my attending Dr. Basilio. - Lab Data Result diagrams: 05/25/20 20:25 05/25/20 20:25 Lab Results 05/25/20 05/25/20 05/25/20 Range/Units 20:25 20:25 20:25 WBC 8.2 (3.8-10.6) k/uL RBC 4.93 (4.30-5.90) m/uL Hgb 15.9 (13.0-17.5) gm/dL Hct 46.3 (39.0-53.0) % MCV 93.9 (80.0-100.0) fL MCH 32.2 (25.0-35.0) pg MCHC 34.2 (31.0-37.0) g/dL RDW 12.4 (11.5-15.5) % Plt Count 409 (150-450) k/uL MPV 7.2 Neutrophils % 52 % Lymphocytes % 35 % Monocytes % 5 % Eosinophils % 5 % Basophils % 1 % Neutrophils # 4.2 (1.3-7.7) k/uL Lymphocytes # 2.9 (1.0-4.8) k/uL Monocytes # 0.4 (0-1.0) k/uL Eosinophils # 0.4 (0-0.7) k/uL Basophils # 0.1 (0-0.2) k/uL Sodium 139 (137-145) mmol/L Potassium 4.0 (3.5-5.1) mmol/L Chloride 102 (98-107) mmol/L Carbon Dioxide 27 (22-30) mmol/L Anion Gap 10 mmol/L BUN 7 L (9-20) mg/dL Creatinine 0.88 (0.66-1.25) mg/dL Est GFR (CKD-EPI)AfAm >90 (>60 ml/min/1.73 sqM) Est GFR (CKD-EPI)NonAf >90 (>60 ml/min/1.73 sqM) Glucose 121 H (74-99) mg/dL Calcium 9.6 (8.4-10.2) mg/dL Total Bilirubin 0.5 (0.2-1.3) mg/dL AST 39 (17-59) U/L ALT 31 (4-49) U/L Alkaline Phosphatase 70 (38-126) U/L Total Protein 7.1 (6.3-8.2) g/dL Albumin 3.7 (3.5-5.0) g/dL Lipase 86 (23-300) U/L Urine Color Light Yellow Urine Appearance Clear (Clear) Urine pH 5.5 (5.0-8.0) Ur Specific [place] 1.004 (1.001-1.035) Urine Protein Negative (Negative) Urine Glucose (UA) Negative (Negative) Urine Ketones Negative (Negative) Urine Blood Negative (Negative) Urine Nitrite Negative (Negative) Urine Bilirubin Negative (Negative) Urine Urobilinogen <2.0 (<2.0) mg/dL Ur Leukocyte Esterase Negative (Negative) - EKG Data -: EKG Interpreted by [place] EKG Comments: EKG obtained at 1845 shows normal sinus rhythm with a ventricular rate of 98, OK interval 144, QRS duration 86, QT 354, QTC 451. No evidence of ST elevation or depression. - Radiology Data Radiology results: report reviewed, image reviewed CT abdomen and pelvis is obtained. Report was reviewed in its entirety. Impression by Dr. Vear shows partially imaged bibasilar patchy coarse opacities, concerning for covid pneumonia. Otherwise no acute abnormality of the abdomen and pelvis. Distended urinary bladder. One view x-ray of the chest is obtained. Report was reviewed in its entirety. Impression by Dr. Vera shows right greater than left infiltrates. Disposition Clinical Impression: COVID-19, Abdominal pain Disposition: HOME SELF-CARE Condition: Good Instructions (If sedation given, give patient instructions): Coronavirus Disease 2019 (COVID-19), Abdominal Pain (ED) Additional Instructions: Increase fluids. Rest. Follow-up with the primary care physician for recheck in 1-2 days. Return to the emergency department for any new, worsening, or concerning symptoms. Is patient prescribed a controlled substance at d/c from ED?: No Referrals: Florencio Goodman MD [Primary Care Provider] - 1-2 days
--- NOTE | 2020-05-25 22:17 | XR ---
EXAMINATION TYPE: XR chest 1V DATE OF EXAM: 05/25/2020 COMPARISON: 05/25/2019. HISTORY: Cough. TECHNIQUE: Single frontal view of the chest is obtained. FINDINGS: There is mild to moderate right perihilar and bibasilar opacities. There is minimal left p erihilar opacity. No pleural effusion, or pneumothorax seen. The cardiac silhouette size is within n ormal limits. The osseous structures are intact. IMPRESSION: Right greater than left infiltrates.
--- NOTE | 2020-05-25 22:37 | CT ---
EXAMINATION TYPE: CT abdomen pelvis w con DATE OF EXAM: 05/25/2020 COMPARISON: 12/17/2019. HISTORY: Generalized pain with history of bowel resection and diverticulitis. CT DLP: 1203 mGycm Automated exposure control for dose reduction was used. TECHNIQUE: Helical acquisition of images was performed from the lung bases through the pelvis. CONTRAST: Performed without Oral Contrast and with IV Contrast, patient injected with 100 mL of Isovue 300. FINDINGS: LUNG BASES: Moderate bibasilar patchy groundglass opacities. LIVER/GB: No acute abnormality is appreciated. Hepatic steatosis. PANCREAS: No significant abnormality is seen. SPLEEN: No significant abnormality is seen. ADRENALS: No significant abnormality is seen. KIDNEYS: No significant abnormality is seen. FREE AIR: No free air is visualized. RETROPERITONEAL ADENOPATHY: None visualized REPRODUCTIVE ORGANS: No significant abnormality is seen URINARY BLADDER: Mildly distended. PELVIC ADENOPATHY: None visualized. OSSEOUS STRUCTURES: No significant abnormality is seen. BOWEL: Prior post surgical changes involving the sigmoid colon. No bowel obstruction, free air or fl uid. Normal appendix.. OTHER: None. IMPRESSION: PARTIALLY IMAGED BIBASILAR PATCHY COARSE OPACITIES, CONCERNING FOR COVID PNEUMONIA. Otherwise no acute abnormality of the abdomen/pelvis. Distended urinary bladder.
[2020-05-25] MEDS ORDERED: SODIUM CHLORIDE 0.9% 50 ML IVPB ONE (23:15)
[2020-05-25] MEDS ORDERED: BAMLANIVIMAB (EUA) 700 MG, ETESEVIMAB (EUA) 1,400 MG in SODIUM CHLORIDE 0.9% 50 ML IVPB ONE (23:15)
[2020-05-26 01:05] VITALS: BP 133/74; PULSE 99
== END 2020-05-26 01:07 | disposition home or self-care (01) ==
LOC: EC 17:08
DX: U07.1 COVID-19 (principal); R10.9 Unspecified abdominal pain; I10 Essential (primary) hypertension; F41.9 Anxiety disorder, unspecified; F31.9 Bipolar disorder, unspecified; F17.200 Nicotine dependence, unspecified, uncomplicated; Z79.899 Other long term (current) drug therapy; Z88.8 Allergy status to other drugs, medicaments and biological substances; Z90.49 Acquired absence of other specified parts of digestive tract
CPT/HCPCS: 36415; 93005; 80053; 83690; 85025; 81003; 71045; 74177; 99284; 96365; 96375 ×2; 96376; 96361 ×2; J2405; J1170; Q9967; Q0245

== ENCOUNTER → 2020-07-06 | Outpatient (CLI) | payer MEDICARE, OTHER ==
--- NOTE | 2020-07-06 11:41 | CT ---
EXAMINATION TYPE: CT angio chest DATE OF EXAM: 07/06/2020 COMPARISON: 05/25/2020 HISTORY: 54-year-old male shortness of breath, Dyspnea. Mid to left sided chest pain. TECHNIQUE: Contiguous axial scanning of the chest performed with IV Contrast, patient injected with 1 00 mL of Isovue 370. Coronal/sagittal MIP reconstructions performed. CT DLP: 381.3 mGycm Automated exposure control for dose reduction was used. FINDINGS: Heart normal size without pericardial effusion. No flattening of the interventricular septum reflux o f contrast into the hepatic veins. Ectatic aortic root at 3.8 cm. Conventional arch vessel branching anatomy. Prominent but nonenlarged mediastinal lymph nodes measuring up to 9 mm. Enlarged 1.1 cm right hilar lymph node. Satisfactory opacification of the pulmonary arterial system without evidence for pulmonary embolus. Lungs show some scattered patchy peripheral areas of groundglass density. No pleural effusion. Severe hepatic steatosis in the visualized upper abdomen. Bones: No osseous destructive process. IMPRESSION: 1. NO EVIDENCE FOR PULMONARY EMBOLUS. 2. SCATTERED PATCHY PERIPHERAL GROUNDGLASS FILTRATES. FINDINGS MAY BE WITH COVID PNEUMONIA. 3. SEVERE HEPATIC STEATOSIS.
== END | disposition home or self-care (01) ==
LOC: RADCTMAIN 11:08
PROVIDERS: ATTEND Nurse Practitioner
DX: R91.8 Other nonspecific abnormal finding of lung field (principal); K76.0 Fatty (change of) liver, not elsewhere classified
CPT/HCPCS: 71275; Q9967

== ENCOUNTER → 2020-10-20 | Outpatient (CLI) | payer MEDICARE ==
--- NOTE | 2020-10-21 07:56 | MR ---
EXAMINATION TYPE: MR cervical spine wo con DATE OF EXAM: 10/20/2020 COMPARISON: 02/28/2018 HISTORY: Neck pain for 1-2 years. CONTRAST: Performed utilizing 0 mL intravenous Gadavist gadolinium contrast. TECHNIQUE: Multiplanar multiecho imaging on a 3.0 Cecily magnet is performed through the cervical spin e. FINDINGS: The craniovertebral junction is normal. Vertebral body alignment is normal. Spinal cord maintains normal signal throughout its visualized course. C7-T1: No focal disc herniation or significant disc bulge is evident. No spinal canal stenosis or n eural foraminal stenosis is present. C6-7: Mild disc bulge is present with anterior thecal sac flattening. There may be some mild contact with the spinal cord. No significant cord compression is evident. Bilateral foraminal stenosis is pre sent. Mild disc narrowing is present. C5-6: Broad-based disc bulge is present with anterior thecal sac contact. Cord contact without cord d eformity is present. No spinal canal stenosis. Bilateral foraminal stenosis is present. Some endplate signal change compatible with Modic type I degenerative change is present.. C4-5: No focal disc herniation or significant disc bulge is evident. A previous focal disc bulge at this level appears resolved. No spinal canal stenosis or neural foraminal stenosis is present. C3-4: No focal disc herniation or significant disc bulge is evident. No spinal canal stenosis or rocael ral foraminal stenosis is present. C2-3: No focal disc herniation or significant disc bulge is evident. No spinal canal stenosis or rocael ral foraminal stenosis is present. COMPARISON: IMPRESSIONS: 1. Mild degenerative disc changes with disc bulging C5-6 C6-7. 2. Resolution of previous right paracentral C4-5 disc bulge. 3. Foraminal stenosis C5-6 C6-7 from uncovertebral joint hypertrophy.
== END | disposition home or self-care (01) ==
LOC: RADMRIMAIN 11:05
PROVIDERS: ATTEND Orthopaedic Surgery
DX: M50.223 Other cervical disc displacement at C6-C7 level (principal); M50.323 Other cervical disc degeneration at C6-C7 level; M47.812 Spondylosis without myelopathy or radiculopathy, cervical region; M99.71 Connective tissue and disc stenosis of intervertebral foramina of cervical region
CPT/HCPCS: 72141

== ENCOUNTER → 2021-10-04 | Outpatient (CLI) | payer MEDICARE, OTHER ==
--- NOTE | 2021-10-04 16:50 | XR ---
EXAMINATION TYPE: XR toes LT DATE OF EXAM: 10/04/2021 COMPARISON: NONE HISTORY: 55-year-old male [id number], pain and swelling TECHNIQUE: 3 views coned down great toe FINDINGS: Generalized soft tissue swelling of the toe. There is moderate degenerative change at the great toe w ith joint space narrowing and marginal spurring. No acute fracture, subluxation, dislocation. IMPRESSION: 1. Generalized soft tissue swelling of the great toe. No acute osseous abnormality seen. 2. Moderate first MTP joint OA.
== END | disposition home or self-care (01) ==
LOC: RADXRMAIN 11:25
PROVIDERS: ATTEND Family Medicine
DX: M19.072 Primary osteoarthritis, left ankle and foot (principal); M79.89 Other specified soft tissue disorders

== ENCOUNTER → 2021-10-30 | Outpatient (CLI) | payer MEDICARE ==
[2021-10-30 14:47] LABS: Basophils # (A) 0.04 X 10*3/uL (0.00-0.10); Basophils % (A) 0.6 %; Eosinophils # (A) 0.21 X 10*3/uL (0.04-0.35); HCT 43.1 % (39.6-50.0); HGB 14.7 g/dL (13.0-17.0); Immature Grans, Automated 0.4 %; Lymphocytes # (A) 1.44 X 10*3/uL (0.90-5.00); Lymphocytes % (A) 20.3 %; MCH 31.6 pg (27.0-32.0); MCHC 34.1 g/dL (32.0-37.0); MCV 92.7 fL (80.0-97.0); Mean Platelet Volume 10.7 fL (9.5-12.2); Monocytes # (A) 0.59 X 10*3/uL (0.20-1.00); Monocytes % (A) 8.3 %; NRBC Per 100 WBC 0 /100 WBCS (0.0-0.0); Neutrophils # (A) 4.77 X 10*3/uL (1.80-7.70); Neutrophils % (A) 67.4 %; Platelet Count 129 X 10*3/uL (140-440); RBC 4.65 X 10*6/uL (4.40-5.60); WBC 7.08 X 10*3/uL (4.50-10.00)
[2021-10-30 15:33] LABS: African American GFR (CKD) 98.5 (60.0-200.0); Anion Gap 12.3 mmol/L (10.00-18.00); BUN/Creat Ratio 8.6 Ratio (12.00-20.00); Blood Urea Nitrogen 8.6 mg/dL (9.0-27.0); Calcium 9.3 mg/dL (8.7-10.3); Carbon Dioxide 23.7 mmol/L (20.0-27.5); Non-African American GFR(CKD) 84.9 (60.0-200.0); Potassium 3.6 mmol/L (3.5-5.5)
== END | disposition home or self-care (01) ==
LOC: LABPAT 08:53
PROVIDERS: ATTEND Orthopaedic Surgery Hand Surgery
DX: Z01.812 Encounter for preprocedural laboratory examination (principal); G56.02 Carpal tunnel syndrome, left upper limb; G56.22 Lesion of ulnar nerve, left upper limb
CPT/HCPCS: 80048; 85025

== ENCOUNTER → 2021-12-04 | Outpatient (CLI) | payer MEDICARE, OTHER | END | disposition home or self-care (01) | LOC: LABPAT 10:10 | PROVIDERS: ATTEND Orthopaedic Surgery | DX: Z01.812 Encounter for preprocedural laboratory examination (principal); M47.812 Spondylosis without myelopathy or radiculopathy, cervical region; M48.02 Spinal stenosis, cervical region; Z22.322 Carrier or suspected carrier of Methicillin resistant Staphylococcus aureus | CPT/HCPCS: 87070 ==

== ENCOUNTER 2021-12-12 05:51 | Inpatient (IN) | payer MEDICARE, OTHER ==
[2021-12-08 14:49] VITALS: BMI 29.8
[~2021-12-12 05:51] MED LIST changes: +ACETAMINOPHEN TAB 500 MG TAB PO PRN; +GABAPENTIN 300 MG CAP PO PRN; -LACTATED RINGERS 1,000 ML IV SCH; -LIDOCAINE 1% (10MG/ML) FOR IV START INTRADERMA PRN; +ONDANSETRON 4 MG/2 ML VIAL IVP PRN; +TRANEXAMIC ACID IN NACL,ISO-OS 1,000 MG in SALINE 1 100ML.BAG IVPB PRN
[2021-12-12] MEDS ORDERED: LIDOCAINE 1% (10MG/ML) FOR IV START INTRADERMA PRN (05:52)
[2021-12-12] MEDS ORDERED: ONDANSETRON 4 MG/2 ML VIAL IVP ONE (05:52)
--- NOTE | 2021-12-12 06:07 | P.HPOR ---
History of Present Illness H&P Date: 12/04/21 .D:Date: 12/04/21 : 09:59am .T:Title: [facility] History and Physical Date of :[birth year] Age: 55 year Height: 5'6" Weight: 200 lbs BP:121/74 BMI: 32.28 kg/m2 Occupation: Disabled VAS: 8 CHIEF COMPLAINT: Neck pain, Arm pain, weakness DOI:Chronic DOS: None Duration of current treatment regiment: 1 year HISTORY: Xrays No new xrays taken in office Trauma or injury No Work-Related No Pain description aching, sharp. Location diffuse Activity Modification yes Hand Dominance right TREATMENTS COMPLETED: 6 weeks of PT completed? Month and Year of last PT date? None No Physician recommended home exercise completed? Duration of HEP course: Current yes Patient has trialed the physician directed home exercise program for (without) relief of their symptoms. Medications yes List: IBU 800mg, Marsteller 7.5/325mg, Gabapentin 300mg all without relief of his symptoms. Tizanidine without relief of his symptoms. Alternative interventions Chiropractic: No Massage therapy: No R.I.C.E: yes heat and ice both without relief. Brace: No Injections Yes How many? 1 Did they help? No RFA: yes without improvements. SUBJECTIVE: Mr. Galan returns to the office for a pre-operative recheck of their cervical sine and to review the planned cervical(C4-C7) ACDF. Since the time of the last appointment the patient reports continued cervical pain into the bilateral upper extremities diffusely. Overall the patient has seen a progressive increase in symptoms since their onset. Mr. Galan symptoms are exacerbated with prolonged standing and ambulation, due to this they notes that it is increasingly difficult for Mr. Galan to complete many of their daily tasks. Patient is having severe sleep disturbances as well due to their ongoing pain and associated symptoms. Regarding treatments, the patient has previously trialed all abovementioned treatment modalities without relief of his symptoms. Patient denies trialing any other modalities at this time. Otherwise the patient denies any f/c/sob/cp, no incision concerns, no bladder or bowel retention/incontinence, no perineal numbness/tingling, and ambulates independently. HPI: Mr. Galan last returned to the office on 10/11/2021 for an recheck of their cervical spine. Patient reports a continued and worsening cervical pain ongoing for several years with no known injury or trauma to indicate an exact onset of their symptoms. In addition to their cervical pain, they do report t hat it radiates into the bilateral upper extremities, associated with numbness and tingling through the arms diffusely. Overall the patient has seen a progressive increase in symptoms since their onset. Mr. Galan symptoms are exacerbated with most daily activities, due to this they notes that it is increasingly difficult for Mr. Galan to complete many of their daily tasks. Patient is having severe sleep disturbances as well due to their ongoing pain and associated symptoms. Regarding treatments, the patient has previously trialed all abovementioned treatment modalities. Patient denies trialing any other modalities at this time. For their symptoms, the patient has been taking Motrin 800mg, Gabapentin 300mg, and Marsteller 7.5/325mg all without relief of her symptoms. Patient denies taking analgesics/anticoagulants/narcotics/CINTHIA- analogs. Otherwise the patient denies any f/c/sob/cp, no incision concerns, no bladder or bowel retention/incontinence, no perineal numbness/tingling, and ambulates independently. Mr. Galan was last seen on 11/28/2021 regarding a follow up evaluation of his cervical spine. Of note he presents to the office to review the results of the MRI obtains after his last scheduled appointment. Regarding his symptoms he notes that his symptoms have not improved since the time of the last appointment. Patient has been doing his home exercises and notes an increase in his pain with this. Additionally the patient complains of continued radiculopathic symptoms. Of note, the patient presents to the office without the use of any ambulatory aides. Mr. Galan was last seen on 10/05/2020 regarding his cervical spine. To review, the patient has been previously evaluated for his cervical spine pain by Dr. Sexton in 2019 who administered an RFA injection, which did not help his symptoms. Additionally, he did have an MRI of his cervical spine done in 2019. Patient denies ever having physical therapy for the neck pain. This pain, he notes, has been ongoing for 3 years and is consistent. His pain does limit the amount of ambulation he can do. This pain came without any injury or trauma to indicate an exact onset of his pain. The pain, he describes, is diffuse through the neck but it does radiate down into his right upper extremity. In the office today the patients pain is a 6/10. Along with the radiating pain their is also associated numbness and tingling in his right upper arm distal extremities. His pain has progressively worsened over the years and is now a large concern for him. He does present to the office today without the use of any ambulatory aides. The patients' past social, medical, family, surgical history, as well as review of systems, have been reviewed. Please refer to the Neurosurgery History and Physical form that has been scanned in to our electronic medical record system. 16 points review of systems completed and as stated in HPI, all other systems reviewed are negative. Social History: Reviewed, see appropriate section of the chart for details. P3 Social History: Smoking: current smoker P3 Smoking Amount: 1 PPD Alcohol: none P3 Family History: Reviewed, see appropriate section of the chart for details. P2 Past Medical History: Reviewed, see appropriate section of the chart for details. P1 Current Medications: Rx: allopurinoL 100 mg tablet Ref: 0 Rx: gabapentin 300 mg capsule Ref: 0 Rx: HYDROcodone 7.5 mg-acetaminophen 325 mg tablet Ref: 0 Rx: IBU 800 mg tablet Ref: 0 Rx: losartan 50 mg tablet Ref: 0 Rx: metoprolol tartrate 25 mg tablet Ref: 0 Rx: rosuvastatin 10 mg tablet Ref: 0 Rx: sertraline 100 mg tablet Ref: 0 Rx: terbinafine HCL 250 mg tablet Ref: 0 Rx: tiZANidine 4 mg tablet Ref: 0 PHYSICAL EXAMINATION: General: Awake, alert, appropriate for age, in no acute distress. HEENT: No unusual neck masses around region of lateral neck triangle, thyroid, supraclavicular groove Heart: Regular rate and rhythm, normal S1, S2 and no murmur/gallop. Lungs: Clear to auscultation bilaterally with no use of accessory muscles. Extremities: Skin warm and dry without acute lesions, coloration, temperature, skin intact, no tenderness or erythema Integument: Hairy patches: ABSENT Dorsal skin dimples: ABSENT Cafe au lait spots: ABSENT Palpation: Please see Pain drawing on Intake sheet for further detail. Some minor TTP over the paraspinal musculature, no midline spinal tenderness Cervical Tenderness: No E6 Paralumbar tenderness: No E6 Parathoracic tenderness: No E6 Buttocks tenderness: No E6 POSTURAL and MUSCULO-SKELETAL EVALUATION: Coronal Balance: NEUTRAL Recumbent testing: Patient is able to lay flat on back Sagittal Balance: NEUTRAL Shoulder Profile: LEVEL Pelvic Girdle: LEVEL Neck ROM: RESTRICTED Lumbar ROM: UNRESTRICTED Shoulder ROM: Symmetrical Hip ROM: Symmetrical Knee ROM: Symmetrical Hands: Normal appearance, symmetrical Feet: Normal appearance, Symmetrical VASCULAR STATUS : LEFT RIGHT Wrist Pulses INTACT INTACT Pedal Pulses (Dors. pedis & post.tibialis) INTACT INTACT Color NORMAL NORMAL Edema Absent Absent NEUROLOGIC EXAMINATION: Mental Status:Awake and alert, fully oriented, with normal attention, concentration and memory, and fluent, appropriate speech. Cranial Nerves: I: Olfactory not tested. II: Visual acuity normal, no visual field deficit noted with confrontation. III,IV: Normal pupillary reflexes & intact extraocular movements without nystagmus. V,: Intact symmetrical facial sensation. VII: Intact symmetrical facial motor movement VIII: Hearing intact. IX,X: Intact gag, swallow, & normal voice. XI: Sternocleidomastoid, trapezius function intact. XII: Tongue midline with normal movements. L'hermitte's Sign: Negative / absent Spurling'Sign: Absent bilaterally. Cubital percussion test: Absent bilaterally. Beckham-Tinel sign - Carpal region: Absent bilaterally. Straight Leg Raising: Absent bilaterally. Crossed straight leg raise: negative O8 MOTOR EXAM (0-5/5, N/T) STRENGTH RIGHT LEFT Shoulder Abd (not part of the SALAZAR score) 5 5 Elbow Flexors 4+ 4+ Elbow Extensor 5 5 Wrist Dorsiflexors 5 5 Finger Abductor 5 5 Licensed Direct Entry Midwife 4 5 Hip Flexor (Not part of SALAZAR Motor score) 5 5 Knee Flexor 5 5 Knee Extensor 5 5 Ankle dorsiflexor 5 5 Ankle plantarflexion 5 5 Extensor hallucis 5 5 REFLEXES(0-4/2, NT)Upper ExtremityLower Extremity Right 2 2 Left 2 2 Pathological Reflexes RIG HT LEFT Beckham's Absent Absent Clonus Absent Absent Babinski Absent Absent # Indicates mechanical impairment Muscle appearance: Symmetrical, without signs of atrophy or dystrophy. Sensory system (0-4, N/T) Test type RU XOCHILT RL LL Joint-Position 2 2 2 2 Vibration 2 2 2 2 Pain & LT sense 2 2 2 2 Dermatomal Deficit: C5-C6 None None None Gait and Functional Evaluation: Ambulatory aids: Independent Romberg's test: Intact bilaterally Toe heel walk / heel-toe walk intact while maintaining satisfactory balance? yes Squatting/straightening w/o assistance to a min of 60 degree knee flexion? yes Single leg stance: intact Trendelenburg sign negative bilaterally Hand and finger dexterity intact bilaterally? yes Disdiadochokinesis examination negative bilaterally? yes RADIOGRAPHIC STUDIES: XRay taken on 10/03/20 of Cervical was reviewed by Dr. Brewer and indicates: - C5-7 spondylosis with disc collapse, osteophyte formation and facet arthrosis. NO overt instability noted on Flex/ex films at this time C0-1 and C1-2 appear stable at this time as well. No subaxial instability. Similar finding with C4-7 spondylosis with stenosis related. No myelomalacia. No fracture, no lesions noted. These are old findings and the Xray suggest that this is advanced since this MRI. MRI scan from of Cervical Spine: MRI of the cervical spine is reviewed in the office today.there is spondylosis noted from C4 to C7 which is worse at C5 6 and C6 7. There are Modic endplate changes at these levels. There are large central disc herniations at C5 6 and C6 7 causing moderate to severe stenosis centrally. There is mild stenosis noted at C4-C5 from chronic disc herniation at C4-C5. There is no myelomalacia noted at this time. There is cord contact however of C5-C6 C6-C7. There is retrolisthesis of C6 on C7. There is straightening of the normal cervical lordosis with accentuated cervical lordosis through C6-C7 due to fish mouthing at this area. Occipital cervical C1 2 joints appear stable. No fracture or dislocation noted. Radiology read below IMPRESSIONS: 1. Mild degenerative disc changes with disc bulging C5-6 C6-7. 2. Resolution of previous right paracentral C4-5 disc bulge. 3. Foraminal stenosis C5-6 C6-7 from uncovertebral joint hypertrophy. IMPRESSION: It was my pleasure to have seen and examined Medardo. I reviewed the patient's clinical syndrome, physical findings, and imaging studies during the appointment today. It is my impression that the patient has a diagnosis of. 1. C4-C7 Spondylosis 2.C4-C7 Stenosis 3.Upper extremity radiculopathy I outlined the natural course history without intervention and various interventional options. PLAN: Based on my findings I suggest the following course of action: -Advised patient to continue with supplements, health maintenance, and home exercise programs. Patient expressed understanding and will continue with these modalities. -I discussed treatment options with the patient, including operative and non- operative options, and they have elected to proceed with the following surgical procedure: cervical(C4-C7) ACDF The indications, risks, benefits, and alternatives to surgery were discussed with the patient at length. Specifically (but not limited to) the risks of infection, stiffness, recurrence of symptoms, need for revision surgery, local numbness, neurovascular injury, and blood clots were discussed. The patient's questions were answered. Spine Surgery Risk Review Mr. Galan is presenting for evaluation of cervical pain and bilateral upper extremity radiculopathy. It was my pleasure to have seen and examined Mr. Galan. In our visit today we have had a chance to go over subjective complaints, physical examination findings and treatments including the natural course history without intervention and various interventional options. The patients imaging demonstrates: XRay taken on 10/03/20 of Cervical was reviewed by Dr. Brewer and indicates: - C5-7 spondylosis with disc collapse, osteophyte formation and facet arthrosis. NO overt instability noted on Flex/ex films at this time C0-1 and C1-2 appear stable at this time as well. No subaxial instability. Similar finding with C4-7 spondylosis with stenosis related. No myelomalacia. No fracture, no lesions noted. These are old findings and the Xray suggest that this is advanced since this MRI. MRI scan from of Cervical Spine: MRI of the cervical spine is reviewed in the office today.there is spondylosis noted from C4 to C7 which is worse at C5 6 and C6 7. There are Modic endplate changes at these levels. There are large central disc herniations at C5 6 and C6 7 causing moderate to severe stenosis centrally. There is mild stenosis noted at C4-C5 from chronic disc herniation at C4-C5. There is no myelomalacia noted at this time. There is cord contact however of C5-C6 C6-C7. There is retrolisthesis of C6 on C7. There is straightening of the normal cervical lordosis with accentuated cervical lordosis through C6-C7 due to fish mouthing at this area. Occipital cervical C1 2 joints appear stable. No fracture or dislocation noted. Radiology read below IMPRESSIONS: 1. Mild degenerative disc changes with disc bulging C5-6 C6-7. 2. Resolution of previous right paracentral C4-5 disc bulge. 3. Foraminal stenosis C5-6 C6-7 from uncovertebral joint hypertrophy. On physical exam, Mr. Galan demonstrates restricted cervical ROM with bilateral upper extremity radiculopathy and weakness. Patient also demonstrates dermatomal deficits about the C5-C6 distribution of the right upper extremity. I have explained to the patient that as their condition progresses it will cause further neurological deficits and eventual paralysis. Based on the patients imaging, physical exam, and the rapid progression and disabling nature of their symptoms, at this time I recommend surgery in the form or a: cervical(C4-C7) ACDF. I discussed the risk and benefits of this procedure at length with Mr. Galan. The patient agreed to considered pursuing the procedure abovementioned. Prior to surgery, she should follow up with her PCP (Cardio, ID, IM etc) for clearance. Questions were invited and answered, and the patient wishes to proceed as outlined below. Currently, I am recommendin.cervical(C4-C7) ACDF 2.Follow up with PCP for surgical clearance 3.Review of surgical risks and benefits as well as an educational packet on the proposed surgical procedure. Risks: All surgical procedures come with inherent risks, including those related to positioning, anesthesia, intraoperative findings, and postoperative complications. It is important to understand that surgery does not come with any guarantee of a successful outcome as complications and adverse events are always possible. The patient was given a handout in office today discussing the surgical procedure and risks associated with the intervention, both of which were discussed with the patient. These risks include but are not limited to the foll owing: * Experiencing same, different or even worse symptoms in back, neck, arms, or legs compared to before surgery. Requiring further surgery or other forms of treatment presently or at some time in the future at same or other levels of the intended spine surgery. On an extreme but fortunately relatively rare basis severe complication such as blindness, stroke, heart attack, temporary and/or permanent nerve injury, paralysis, coma, or may occur, sometimes without known explanation. Surgical complications may include but are not limited to risk of infection, fluid accumulation in the surgical dissection site, including a seroma or hematoma, that requires additional surgery, wound drainage, bleeding, new numbness or weakness, vision changes/loss, spinal fluid leakage, non-healing and/or infected incision, headaches, difficulty or inability to swallow, hoarseness, hemopneumothorax, pneumothorax, impotence, retrograde ejaculation, vaginal dryness; injury to nerves, spinal cord, blood vessels, lymphatics or other vital organs (i.e., bowel injury, injury to the great vessels); heterotopic bone formation; complications related to the hardware such as screws, rods, cages including misplaced hardware, device failure, instrumentation at the wrong spine level, hardware fracture/breakage, or hardware loosening; vertebral failure of the spinal column above or below the newly placed hardware; retained surgical instrumentations or devices and the need for further surgery. * Medical risks of the planned spine surgery include but are not limited to generalized Infections to the whole body or local areas outside of the surgical site (sepsis), heart attack, bleeding, anaphylaxis, meningitis, seizure, epilepsy, hearing loss, burn bassett, laceration of the head or other areas of the body, bruising, hypersensitivity of the skin, bladder over distension; allergic reaction; shoulder injury related to positioning; fat, blood and air clots to other areas of the body like heart, lungs, brain; failure of internal organs such as lungs, kidneys, liver and excessive bleeding. If blood transfusions are necessary, note that transfusions may cause intolerance reactions such as anaphylaxis or other complex reactions. Despite best efforts, the results of spine surgery might not heal in terms of bone, soft tissues such as skin, fascia, ligaments, and joints. Additionally, in order to achieve best possible results, spine surgery may be carried out beyond the initially planned levels and involve decompression, fusion including insertion of hardware at levels other than the original intended area of surgical interest change some portions of the procedure in order to ensure the best possible outcomes. With spine surgery and spinal fusion, there are different off label uses of instrumentation (devices, implants and hardware) as well as biological substances (bone morphogenic proteins, demineralized bone matrix) as well as using extra bone from allograft sources (i.e. cadaver bone) or autograft (iliac crest bone, ribs, or the spine itself). The patient has been given information about these practices and their inherent risks and benefits. [facility] is an educational center that serves as a training facility for neurosurgical and orthopedic FACILITY SUPERVISOR and Nursing students. Physician assistants are medically trained surgical providers who function in the outpatient, inpatient, and operating room setting under the direct supervision of the attending surgeon. [facility] has multiple operating rooms with single and overlapping rooms running daily. They currently function under the required guidelines as produced by the [facility] Finance Committee with regards to the overlapping rooms and will continue to comply with changes to this policy as they occur. The requirements include and are complied with as follows: (1) the critical portions of the overlapping rooms will not occur at the same time, (2) the attending physician will be physically present during the critical portions of the procedure and immediately available during the entire case, and (3) a back-up attending is designated should the primary attending not be immediately available. The patient has had a chance to review all the listed information, has been given print outs detailing this information, and has had all his/her questions answered to their satisfaction. It was my pleasure to have seen and examined Mr. Galan. In our visit today we have had a chance to go over my understanding of our patient's current condition, the natural course history without intervention and various interventional options. Questions were invited and answered, and the patient wishes to proceed as outlined above. I have seen and examined the patient for 25 minutes and we have spent more than 50% of the time in repeat and detailed counseling about the patient's condition, its natural course history with out and as much as can be predicted with surgery and re-review of various surgical treatment options. In conclusion, Mr. Galan requested we proceed with the above suggested surgery and are willing to accept risks and limitations of the suggested surgery as nature of the disease process and our best attempts at treatment for the condition. Thank you again for allowing us to be part of your patient's care. Please don't hesitate to contact me if you have any further questions. Signed and authenticated by: [employer] P:\\\\ppart\\\\[id number]\\\\[id number] \\d Dallin Sparks DO [facility] Complex and Minimally Invasive Spine Surgery [address] [place], [place] [id number] Follow- up: 2 weeks post-op Patient Education: (Informational booklet, instructions, etc) given at today's appointment: Yes .ED:Patient Education: Y Plan at next visit: pre-operative review Medications Reviewed: YES In our visit today Mr. Galan and I have had a chance to go over my understanding of the patient's current condition, the natural course history without intervention and various interventional options. Questions were invited and answered, and the patient wishes to proceed as outlined above. I will be sure to keep you updated afterMr. Galan returns here for further follow-up. Thank you again for your referral. Please do not hesitate to contact me if you have any further questions. Signed and authenticated by: Dallin Sparks DO [facility] Complex and Minimally Invasive Spine Surgery [address] [place] [address] This message is confidential, intended only for the named recipient(s) and may contain information that is privileged or exempt from disclosure under applicable law. If you are not the intended recipient(s), you are notified that the dissemination, distribution or copying of this information is strictly prohibited. If you received this message in error, please notify the sender then delete this message. Patient verbalizes understanding of the information discussed. The above note was initiated by Dallin Little, physician recording child life assistant for Dr. Dallin Sparks. This note has been reviewed by Dr. Sparks, who has made his personal changes and impressions for this document. # SIGNED BY Dallin Sparks (GOO)12/12/2021 06:06AM Past Medical History Past Medical History: COPD, Hypertension, Osteoarthritis (OA), Pneumonia Additional Past Medical History / Comment(s): Hx ETOH abuse(no alcohol since 05/15/21), past withdrawal per pt with shaking/nausea and diarrhea, pancreatitis, diverticulitis, chronic cervical/back pain/DDD and cervical spondylosis, bronchitis. History of Any Multi-Drug Resistant Organisms: C-DIFF Date of last positivie culture/infection: 2005 MDRO Source:: stool Past Surgical History: Bowel Resection Additional Past Surgical History / Comment(s): Bowel resection with 10 inches removed d/t diverticulitis, colonoscopy, benign lump removed from scrotum, bilateral rotator cuff repair, pain clinic procedures. Past Anesthesia/Blood Transfusion Reactions: No Reported Reaction Past Psychological History: Anxiety, Bipolar, Depression Smoking Status: Current every day smoker Past Alcohol Use History: Abuse, Daily, Heavy Additional Past Alcohol Use History / Comment(s): Started smoking in 1982 and is a 1 ppd smoker. Used to drink 1/5 and a few beers per day, last drank 05/15/21. Past Drug Use History: Marijuana Additional Drug Use History / Comment(s): Occasional Marijuana. Aware no alcohol or Marijuana 24 hrs prior to procedure. - Past Family History Father Family Medical History: Congestive Heart Failure (CHF) Additional Family Medical History / Comment(s): Father was healthy. Mother Family Medical History: Congestive Heart Failure (CHF) Medications and Allergies Home Medications Medication Instructions Recorded Confirmed Type HYDROcodone/APAP 7.5-325MG [[place] 1 tab PO TID PRN 12/17/19 12/08/21 History 7.5-325] Aspirin 81 mg PO DAILY 05/24/21 12/08/21 Rx Metoprolol Tartrate [Lopressor] 25 mg PO BID 30 Days tab 05/24/21 12/08/21 Rx Mirtazapine [Remeron] 15 mg PO HS 30 Days tab 05/24/21 12/08/21 Rx allopurinoL 100 mg PO DAILY 11/06/21 12/08/21 History tiZANidine [Zanaflex] 4 mg PO TID 11/06/21 12/08/21 History Albuterol Inhaler [Ventolin Hfa 2 puff INHALATION QID 12/08/21 12/08/21 History Inhaler] Gabapentin 600 mg PO TID 12/08/21 12/08/21 History Losartan [Cozaar] 50 mg PO QAM 12/08/21 12/08/21 History Sertraline [Zoloft] 100 mg PO QAM 12/08/21 12/08/21 History Allergies Allergy/AdvReac Type Severity Reaction Status Date / Time clonidine [From Catapres] AdvReac Vomiting Verified 12/08/21 14:37 Physical Examination Osteopathic Statement: *. No significant issues noted on an osteopathic structural exam other than those noted in the History and Physical/Consult.
[2021-12-12] MEDS: LACTATED RINGERS 1,000 ML IV SCH ×2 (06:42→06:48)
[2021-12-12] MEDS ORDERED: fentaNYL (PF) 50 MCG/ML 2 ML AMP IV ONE (06:58)
[2021-12-12] MEDS ORDERED: MIDAZOLAM 2 MG/2 ML VIAL IV ONE (06:59)
[2021-12-12] MEDS ORDERED: THROMBIN (BOVINE) 5,000 UNIT VIAL MISCELLANE ONE (08:37)
[2021-12-12] MEDS ORDERED: GELATIN SPONGE,ABSORB (LARGE) 1 EACH SPONGE MISCELLANE ONE (08:37)
--- NOTE | 2021-12-12 10:25 | XR ---
Intraoperative/procedural fluoroscopic services were provided for anterior cervical fusion. Total flu oroscopy time is 34 seconds with a total of 4 submitted images to PACS. Please see the operative note for further details.
[2021-12-12] MEDS ORDERED: LACTATED RINGERS 1,000 ML IV ONE (10:26)
[2021-12-12] MEDS ORDERED: MAGNESIUM HYDROXIDE 2,400 MG/10 ML CUP PO PRN (10:40)
[2021-12-12] MEDS ORDERED: HYDROmorphone 0.5 MG/0.5 ML SYRINGE IVP PRN (10:40)
[2021-12-12] MEDS ORDERED: SENNOSIDES-DOCUSATE SODIUM 1 EACH TAB PO PRN (10:40)
--- NOTE | 2021-12-12 10:47 | P.PN ---
Progress Note - Text Progress Note Date: 12/12/21 History and Physical UPDATE I have seen and examined the patient and reviewed the history and physical. There appear to be no significant changes in the patient's current medical status as outlined in the current History and Physical.
[2021-12-12] MEDS: HYDROmorphone 0.5 MG/0.5 ML SYRINGE IVP PRN ×4 (11:49→13:07)
[2021-12-12] MEDS: ACETAMINOPHEN TAB 325 MG TAB PO SCH ×2 (12:36→18:20)
[2021-12-12] MEDS: CYCLOBENZAPRINE 5 MG TAB PO PRN (14:03)
[2021-12-12] MEDS: HYDROcodone/APAP 7.5-325MG 1 EACH TAB PO PRN ×2 (14:03→18:13)
[2021-12-12] MEDS: GABAPENTIN 300 MG CAP PO SCH ×2 (15:42→19:37)
[2021-12-12] MEDS ORDERED: NON FORMULARY DRUG (Gabapentin [Gabapentin] 600 MG Tablet) PO SCH (16:00)
[2021-12-12] MEDS: ALBUTEROL NEBULIZED 2.5 MG/3 ML INHALATION SCH ×2 (16:30→19:27)
[2021-12-12] MEDS: ONDANSETRON 4 MG/2 ML VIAL IVP PRN (16:55)
--- NOTE | 2021-12-12 18:14 | CT ---
EXAMINATION TYPE: CT cervical spine wo con DATE OF EXAM: 12/12/2021 COMPARISON: 10/03/2020 HISTORY: s/p cerivcal fusion CT DLP: 871 mGycm Automated exposure control for dose reduction was used. Images obtained from the skull base to T1 vertebra with no contrast. There is plates with screws fusing anteriorly the cervical spine at C4-5 and C5-6 and C6-7. Normal alignment. Disc spaces are fairly normal. There is disc prosthesis at the surgery levels. The facet joints are intact. No compression fracture. There is prevertebral soft tissue air related to th e recent surgery. There is soft tissue air in the anterior neck mainly on the right side from the rec ent surgery. There is a drain in the prevertebral soft tissues on the right side. Epiglottis is familia l. At the C3 level the prevertebral soft tissues are thickened and measured 13 mm. There is some flui d that measures up to 5 mm in thickness. IMPRESSION: Recent anterior multilevel fusion surgery. Postsurgical changes in the prevertebral soft tissues. The re is prevertebral fluid measuring up to 5 mm in thickness that could be hematoma or seroma. At this point the possibility of an abscess is not entirely excluded. I do not suspect an abscess.
[2021-12-12] MEDS ORDERED: hydrALAZINE HCL 20 MG/ML 1 ML VIAL IVP STA (18:34)
[2021-12-12] MEDS: HYDROmorphone 1 MG/ML 1 ML SYRINGE IVP PRN ×2 (18:47→21:17)
[2021-12-12] MEDS: METOPROLOL TARTRATE 25 MG TAB PO SCH (19:35)
[2021-12-12] MEDS: LOSARTAN 50 MG TAB PO SCH (19:58)
[2021-12-12] MEDS ORDERED: MIRTAZAPINE 15 MG TAB PO SCH (21:00)
[2021-12-13] MEDS: HYDROmorphone 1 MG/ML 1 ML SYRINGE IVP PRN ×6 (00:11→15:56)
[2021-12-13] MEDS: ACETAMINOPHEN TAB 325 MG TAB PO SCH ×4 (01:07→16:30)
[2021-12-13] MEDS: ONDANSETRON 4 MG/2 ML VIAL IVP PRN (03:04)
[2021-12-13] MEDS: HYDROcodone/APAP 7.5-325MG 1 EACH TAB PO PRN (05:23)
[2021-12-13] MEDS ORDERED: PANTOPRAZOLE 40 MG TABLET PO SCH (07:30)
[2021-12-13] MEDS: ALBUTEROL NEBULIZED 2.5 MG/3 ML INHALATION SCH ×3 (07:42→15:16)
[2021-12-13] MEDS: CYCLOBENZAPRINE 5 MG TAB PO PRN ×2 (08:03→14:47)
[2021-12-13] MEDS: METOPROLOL TARTRATE 25 MG TAB PO SCH (08:04)
[2021-12-13] MEDS: LOSARTAN 50 MG TAB PO SCH (08:05)
[2021-12-13] MEDS: GABAPENTIN 300 MG CAP PO SCH ×2 (08:06→16:27)
[2021-12-13] MEDS ORDERED: allopurinoL 100 MG TAB PO SCH (09:00)
[2021-12-13] MEDS ORDERED: LOSARTAN 50 MG TAB PO SCH (09:00)
[2021-12-13] MEDS ORDERED: SERTRALINE 100 MG TAB PO SCH (09:00)
[2021-12-13 09:01] LABS: Basophils # (A) 0.05 X 10*3/uL (0.00-0.10); Basophils % (A) 0.5 %; Eosinophils # (A) 0.22 X 10*3/uL (0.04-0.35); Eosinophils % (A) 2.4 %; HCT 41.1 % (39.6-50.0); HGB 13.6 g/dL (13.0-17.0); Immature Grans, Automated 0.5 %; Lymphocytes # (A) 1.87 X 10*3/uL (0.90-5.00); Lymphocytes % (A) 20.2 %; MCH 31.8 pg (27.0-32.0); MCHC 33.1 g/dL (32.0-37.0); Mean Platelet Volume 9.2 fL (9.5-12.2); Monocytes # (A) 1.02 X 10*3/uL (0.20-1.00); NRBC Per 100 WBC 0 /100 WBCS (0.0-0.0); Neutrophils # (A) 6.04 X 10*3/uL (1.80-7.70); Neutrophils % (A) 65.4 %; Platelet Count 180 X 10*3/uL (140-440); RBC 4.28 X 10*6/uL (4.40-5.60); RDW 13.2 % (11.5-14.5); WBC 9.25 X 10*3/uL (4.50-10.00)
--- NOTE | 2021-12-13 09:08 | P.PN ---
Subjective Progress Note Date: 12/13/21 Principal diagnosis: Cervical spondylosis with stenosis Patient seen and examined at bedside. Patient was sitting up in bed tolerating breakfast. Patient has complained of neck pain that is not controlled on current regimen. Medications have been adjusted. Patient states he does notice a decrease in his symptoms since surgery. He states he has slight numbness and tingling into bilateral hands. Surgical dressing has been changed and EROS drain removed. Patient tolerated well. He currently denies any fevers/chills, nausea/vomiting, or chest pain. Objective - Vital Signs Vital signs: Vital Signs Temp 98.5 F 12/13/21 05:00 Pulse 71 12/13/21 05:00 Resp 16 12/13/21 05:00 BP 149/90 12/13/21 05:00 Pulse Ox 96 12/13/21 05:00 FiO2 Intake & Output 12/12/21 12/13/21 12/13/21 18:59 06:59 18:59 Intake Total 2270 Output Total 105 45 Balance 2165 -45 Intake: IV 2250 Intake, IV Titration 20 Amount Lactated Ringers 1,000 ml 20 @ 20 mls/hr IV .Q24H [facility] Rx#:[id number] Output: Drainage 45 Anterior Neck 45 Urine 75 Estimated Blood Loss 30 Other: Voiding Method Urinal # Voids 2 - Exam Physical Examination General: The patient is awake and alert, in no acute distress Skin: Skin is warm and dry with no obvious rashes or lesions. Hairy patches absent, no dorsal skin dimples, no cafe au lait spots. Surgical incision to anterior cervical region. Eye: Pupils are equal, round and reactive to light, extra-ocular movements are intact; there is normal conjunctiva bilaterally. Neck: The neck is supple, there is no tenderness and ROM intact. Cardiovascular: There is a regular rate and rhythm. No murmur, rub or gallop is appreciated. Respiratory: Lungs are clear to auscultation, respirations are non-labored, breath sounds are equal. Gastrointestinal: Soft, non-distended, non-tender abdomen . Back: There is no tenderness to palpation in the midline, paralumbar, parathoracic or buttocks region. There is no obvious deformity . Musculoskeletal: ROM limited secondary to pain and stiffness from surgical procedure. Muscle strength is 4/5 in all major muscle groups in bilateral upper extremities, 5/5 in bilateral lower extremities. Neurological: CN 2-12 intact. There are no obvious motor or sensory deficits. Movement and coordination equal and intact. Sensory exam to light touch intact C5-T1 and intact from L2-S1. Reflexes 2/4 in bilateral upper and lower extremities. Negative Hoffmans, babinski, and clonus signs. Psychiatric: Cooperative, appropriate mood & affect, normal judgment. Assessment and Plan Assessment: s/p Post Op Day 1: C4-C7 ACDF Cervical Spondylosis with stenosis Plan: Plan: -Appreciate procurement consultant and team management. -Activity: Ambulate QID, OOB all meals, up and about, limit lifting bending twisting to less than 5 lbs. Use walker or cane if needed for stability. -Daily PT/OT, increase ambulation strength and balance. -Soft collar when up and about, not needed in bed or chair -Pain control: Adequate at this time -Meds: reviewed -GI ppx: senna, Miralax -DVT PPX: OK to restart Heparin tonight, TEDS -Hygiene: Shower today. Maintain dressing clean and dry. -Encourage IS 10x/hr -Dispo: Anticipate discharge home today with homecare *I reviewed and discussed this case with my attending Dr. Sparks, whom has reviewed this chart and films and is in agreement with assessment and plan of care as outlined above. I have personally seen and examined the patient, performed the documentation and the assessment and plan as written. Number of minutes spent on the visit: 20m.
[2021-12-13 09:11] LABS: African American GFR (CKD) 98.5 (60.0-200.0); Anion Gap 10.5 mmol/L (10.00-18.00); BUN/Creat Ratio 10.9 Ratio (12.00-20.00); Blood Urea Nitrogen 10.9 mg/dL (9.0-27.0); Calcium 8.7 mg/dL (8.7-10.3); Carbon Dioxide 25.5 mmol/L (20.0-27.5); Non-African American GFR(CKD) 84.9 (60.0-200.0)
[2021-12-13] MEDS: oxyCODONE-APAP 5-325MG 1 EACH TAB PO PRN ×2 (10:38→14:47)
--- NOTE | 2021-12-13 11:24 | P.CONS ---
History of Present Illness - Reason for Consult Consult date: 12/13/21 Medical management - Chief Complaint Status post C4 C7 anterior cervical discectomy and fusion - History of Present Illness Patient is a 56-year-old female with a known history of COPD, hypertension, osteoarthritis, anxiety/bipolar and depression and currently everyday smoker and heavy alcohol use was admitted to the hospital for elective cervical decompression surgery. Patient tolerated the procedure very well. Postoperatively patient has been hypertensive. Patient is also complaining of neck pain and is controlled with medications. Denied any complaints of chest pain or shortness of breath. No nausea vomiting abdominal pain or diarrhea. Bilateral tingling sensation in the hands. Patient has been afebrile. No nausea vomiting abdominal pain or diarrhea. No cough or sputum production. CT cervical spine showed recent anterior multilevel fusion surgery, postsurgical changes in the prevertebral soft tissues. There is prevertebral fluid measuring up to 5 mm thickness that could be hematoma or seroma. At this point possibility of an abscess is not entirely excluded. Laboratory data WBC 9.2 hemoglobin 13.6 and platelets 180, sodium 140 potassium 4.0 Chloride 104 bicarb is 12.5 BUN 10.9 and creatinine 1.0 and blood sugar is 136. Review of Systems Constitutional: Patient denies any fever or chills . No generalized weakness or weight loss. Abdomen: Patient denied nausea vomiting and diarrhea and abdominal pain. Cardiovascular: Patient denies any chest pain or short of breath no palpitations. Respiratory: patient denied any cough is from production. No shortness of breath Neurologic: Patient denied any numbness or tingling headache. Musculoskeletal: Patient denies any complaints of joint swelling or deformity. Neck pain and tingling sensation in hands. Skin: Negative Psychiatric: Negative Endocrine: No heat or cold intolerance. No recent weight gain. Genitourinary: No dysuria or hematuria. All other 14 point ROS negative except the above Past Medical History Past Medical History: COPD, Hypertension, Osteoarthritis (OA), Pneumonia Additional Past Medical History / Comment(s): Hx ETOH abuse(no alcohol since 05/15/21), past withdrawal per pt with shaking/nausea and diarrhea, pancreatitis, diverticulitis, chronic cervical/back pain/DDD and cervical spondylosis, bronchitis. History of Any Multi-Drug Resistant Organisms: C-DIFF Year Discovered:: 2005 MDRO Source:: stool Past Surgical History: Bowel Resection Additional Past Surgical History / Comment(s): Bowel resection with 10 inches removed d/t diverticulitis, colonoscopy, benign lump removed from scrotum, bilateral rotator cuff repair, pain clinic procedures. Past Anesthesia/Blood Transfusion Reactions: No Reported Reaction Past Psychological History: Anxiety, Bipolar, Depression Smoking Status: Current every day smoker Past Alcohol Use History: Abuse, Daily, Heavy Additional Past Alcohol Use History / Comment(s): Started smoking in 1982 and is a 1 ppd smoker. Used to drink 1/5 and a few beers per day, last drank 05/15/21. Past Drug Use History: Marijuana Additional Drug Use History / Comment(s): Occasional Marijuana. Aware no alcohol or Marijuana 24 hrs prior to procedure. - Past Family History Father Family Medical History: Congestive Heart Failure (CHF) Additional Family Medical History / Comment(s): Father was healthy. Mother Family Medical History: Congestive Heart Failure (CHF) Medications and Allergies Home Medications Medication Instructions Recorded Confirmed Type HYDROcodone/APAP 7.5-325MG [[place] 1 tab PO TID PRN 12/17/19 12/12/21 History 7.5-325] Aspirin 81 mg PO DAILY 05/24/21 12/12/21 Rx Metoprolol Tartrate [Lopressor] 25 mg PO BID 30 Days tab 05/24/21 12/12/21 Rx Mirtazapine [Remeron] 15 mg PO HS 30 Days tab 05/24/21 12/12/21 Rx allopurinoL 100 mg PO DAILY 11/06/21 12/12/21 History tiZANidine [Zanaflex] 4 mg PO TID 11/06/21 12/12/21 History Albuterol Inhaler [Ventolin Hfa 2 puff INHALATION QID 12/08/21 12/12/21 History Inhaler] Gabapentin 600 mg PO TID 12/08/21 12/12/21 History Losartan [Cozaar] 50 mg PO QAM 12/08/21 12/12/21 History Sertraline [Zoloft] 100 mg PO QAM 12/08/21 12/12/21 History Allergies Allergy/AdvReac Type Severity Reaction Status Date / Time clonidine [From Catapres] AdvReac Vomiting Verified 12/12/21 06:27 Physical Exam Vitals: Vital Signs Temp Pulse Pulse Pulse Resp BP Pulse Ox 12/13/21 05:00 98.5 F 71 16 149/90 96 12/12/21 21:27 98.3 F 74 16 162/89 95 12/12/21 21:00 97.8 F 78 16 183/95 98 12/12/21 20:00 67 16 12/12/21 16:40 98.3 F 67 16 179/99 98 12/12/21 15:22 98.2 F 66 18 158/80 95 12/12/21 14:00 98.3 F 71 16 143/88 91 L 12/12/21 13:30 62 16 148/86 96 12/12/21 13:00 65 16 140/94 96 12/12/21 12:30 68 16 136/96 96 12/12/21 12:06 63 16 145/82 96 12/12/21 11:51 71 16 171/89 100 12/12/21 11:35 68 16 152/87 100 12/12/21 11:19 70 16 153/92 100 12/12/21 11:04 74 16 168/95 100 Intake and Output 12/12/21 12/13/21 12/13/21 22:59 06:59 14:59 Intake Total 20 Output Total 45 Balance 20 -45 Intake: Intake, IV Titration 20 Amount Lactated Ringers 1,000 ml 20 @ 20 mls/hr IV .Q24H [facility] Rx#:[id number] Output: Drainage 45 Anterior Neck 45 Other: Voiding Method Urinal # Voids 2 PHYSICAL EXAMINATION: Patient is lying in the bed comfortably, no acute distress, awake alert and oriented.. HEENT: Normocephalic. Neck is supple. Pupils reactive. Nostrils clear. Oral cavity is moist. Neck reveals no JVD, carotid bruits, or thyromegaly. CHEST EXAMINATION: Trachea is central. Symmetrical expansion. Lung mckee clear to auscultation and percussion. CARDIAC: Normal S1, S2 with no gallops. No murmurs ABDOMEN: Soft. Bowel sounds normal. No organomegaly. No abdominal bruits. Extremities: reveal no edema. No clubbing or cyanosis Neurologically awake, alert, oriented x3 with well-coordinated movements. No focal deficits noted Skin: No rash or skin lesions. Psychiatric: Coperative. Nonsuicidal Musculoskeletal: No joint swelling or deformity. Normal range of motion. Results CBC & Chem 7: 12/13/21 06:39 12/13/21 06:39 Labs: Abnormal Lab Results - Last 24 Hours (Table) 12/13/21 12/13/21 Range/Units 06:39 06:39 RBC 4.28 L (4.40-5.60) X 10*6/uL MPV 9.2 L (9.5-12.2) fL Immature Gran # 0.05 H (0.00-0.04) X 10*3/uL Monocytes # 1.02 H (0.20-1.00) X 10*3/uL BUN/Creatinine Ratio 10.90 L (12.00-20.00) Ratio Glucose 136 H (70-110) mg/dL Assessment and Plan Assessment: Status post C4 to C7 cervical discectomy and fusion postoperative day 1 Chronic neck pain and tingling sensation of the bilateral upper extremities Uncontrolled hypertension likely due to pain. . COPD not in exacerbation Osteoarthritis History of alcohol abuse last drink on 05/15/2021 Anxiety/depression and bipolar disorder Chronic cervical back pain and disc degenerative disease Currently with a smoker DVT prophylaxis with SCDs Plan: Patient will be started back on home blood pressure medications including metop rolol and Cozaar. Pain management and bowel regimen and incentive spirometry. Continue with albuterol inhalation as needed for shortness of breath. Continue with home psychiatric medications including Zoloft and mirtazapine. We'll follow up CBC and BMP tomorrow. Further recommendations based on the clinical course. Thank you for your consult. Time with Patient: Greater than 30
--- NOTE | 2021-12-13 12:54 | P.DS ---
Providers Date of admission: 12/12/21 05:51 Expected date of discharge: 12/13/21 Attending physician: Dallin Sparks DO Consults: 12/12/21 10:43 Consult Physician Routine Consulting Provider: Colin Mohr Reason/Comments: Medical Management Do you want consulting provider notified?: Yes Primary care physician: Florencio Goodman Hospital Course: Hospital Course: The patient was evaluated preoperatively and found to have the diagnosis of cervical spondylosis with stenosis. They underwent appropriate preoperative care and were willing to undergo the intended procedure. They underwent a successful C4-C7 ACDF, were recovered appropriately and sent to the floor. While on the floor they worked with physical therapy, occupational therapy and nursing to enhance their recovery experience. Their pain was well controlled through their stay and they were started on appropriate medications, DVT ppx modalities, activity and dietary needs. Daily labs were monitored closely, and transfusions were only used when necessary. Medicine as well as other consulting services have made their input and have helped with our team approach and multidisciplinary care. PT milestones have been met and passed and they have made the recommendation of home for this patient and treating providers agree with this care path. The patient will be discharged home with appropriate medications, instructions and follow-up information and in stable condition. Patient Condition at Discharge: Good Plan - Discharge Summary Discharge Rx Participant: Yes New Discharge Prescriptions: New cefaDROXiL [Duricef] 500 mg PO Q12HR 3 Days #6 cap oxyCODONE HCL/ACETAMINOPHEN [Percocet 5-325 mg] 1 tab PO Q4HR PRN #56 tab PRN Reason: Pain Sennosides/Docusate Sodium [Senna Plus 8.6-50 mg Softgel] 1 each PO DAILY PRN #20 capsule PRN Reason: Constipation Cyclobenzaprine [Flexeril] 5 mg PO TID #90 tablet Gabapentin [Neurontin] 300 mg PO TID #90 cap No Action HYDROcodone/APAP 7.5-325MG [[place] 7.5-325] 1 tab PO TID PRN PRN Reason: Pain Mirtazapine [Remeron] 15 mg PO HS 30 Days tab allopurinoL 100 mg PO DAILY Losartan [Cozaar] 50 mg PO QAM Aspirin 81 mg PO DAILY Metoprolol Tartrate [Lopressor] 25 mg PO BID 30 Days tab tiZANidine [Zanaflex] 4 mg PO TID Gabapentin 600 mg PO TID Sertraline [Zoloft] 100 mg PO QAM Albuterol Inhaler [Ventolin Hfa Inhaler] 2 puff INHALATION QID Discharge Medication List HYDROcodone/APAP 7.5-325MG [[place] 7.5-325] 1 tab PO TID PRN 12/17/19 [History] Aspirin 81 mg PO DAILY 05/24/21 [Rx] Metoprolol Tartrate [Lopressor] 25 mg PO BID 30 Days tab 05/24/21 [Rx] Mirtazapine [Remeron] 15 mg PO HS 30 Days tab 05/24/21 [Rx] allopurinoL 100 mg PO DAILY 11/06/21 [History] tiZANidine [Zanaflex] 4 mg PO TID 11/06/21 [History] Albuterol Inhaler [Ventolin Hfa Inhaler] 2 puff INHALATION QID 12/08/21 [History] Gabapentin 600 mg PO TID 12/08/21 [History] Losartan [Cozaar] 50 mg PO QAM 12/08/21 [History] Sertraline [Zoloft] 100 mg PO QAM 12/08/21 [History] Cyclobenzaprine [Flexeril] 5 mg PO TID #90 tablet 12/13/21 [Rx] Gabapentin [Neurontin] 300 mg PO TID #90 cap 12/13/21 [Rx] Sennosides/Docusate Sodium [Senna Plus 8.6-50 mg Softgel] 1 each PO DAILY PRN #20 capsule 12/13/21 [Rx] cefaDROXiL [Duricef] 500 mg PO Q12HR 3 Days #6 cap 12/13/21 [Rx] oxyCODONE HCL/ACETAMINOPHEN [Percocet 5-325 mg] 1 tab PO Q4HR PRN #56 tab 12/13/21 [Rx] Follow up Appointment(s)/Referral(s): Florencio Goodman MD [Primary Care Provider] - 1 Week Dallin Sparks DO [Doctor of Osteopathic Medicine] - 2 Weeks Activity/Diet/Wound Care/Special Instructions: Spine Discharge and Recovery Instructions Date of Surgery: 12/12/2021 Diagnosis: Cervical spondylosis with stenosis Procedure: C4-C7 ACDF Medications: See medication list All medication refills should be obtained through your primary care doctor or your clinic spine surgeon. Please discuss prescription refills at your follow up appointment. Do not call the hospital for medication refills. Dressing: Leave your dressing in place for a total of 5 days post operatively. Then you may remove your dressing and leave open to air. Keep the area clean and if not able to keep area clean, then cover with sterile gauze and tape. Showering: You may shower 3 days after your procedure allowing soap and water to run over incision. Do not scrub. Do not soak. Blot dry. Follow up: Please confirm a follow up appointment with your surgeon 3 weeks post operatively. Please make an appointment to follow up with your PCP in 1-2 weeks after surgery for evaluation 3 phase, 3-week plan POST OP WEEKS 1-3 1. Lifting/carrying/pushing/pulling limited to less than 5 pounds. 2. Do not sit for longer than 15 minutes at one time. Get up and walk around. Prolonged sitting is NOT advised. If you lay down, see if you can tolerate laying down on you front (belly side) 3. Walk for periods of 15 minutes = 1 mile but no longer; do it multiple times times each day. 4. Ice your low back after activity. POST OP WEEKS 3-6 1. Lifting limited to less than 20 pounds. 2. Do not sit for longer than 30 minutes at a time. Frequently change positions. Use a sit-to stand workstation or take frequent breaks from sitting if you have returned to work. 3. Walk for 30 minutes each day. If possible, do these three or more times a day POST OP WEEKS 6+ At your 6-week appointment we will give you a physical therapy referral to focus on a core stabilization and strengthening program. You should also work on leg & buttock strengthening, hamstring & quadriceps stretching, and continue a low impact aerobic activity program such as swimming, walking, or riding a stationary bicycle. During the initial 6 weeks after your surgery, you are at the highest risk of re -injuring your spine. You should generally avoid BLTs (bending, lifting and twisting combination motions) and follow the above guidelines to reduce the chance of reinjury. You can anticipate post op appointments in our office at approximately 3 weeks and 6 weeks after your surgery. INCISION CARE: If your incision is not draining you do NOT need to cover it with a dressing. Keep your incision clean, dry and intact. In most cases, we apply skin glue, jalen or sutures to the incision at the time of surgery. This will be like a crust or have the appearance of a scab and will fall off in time on its own. The stitches or jalen need to be removed at 3 weeks post op appointment. You may begin to shower 3 days after surgery (this allows the glue to barrios well). However, please avoid scrubbing the incision site or peeling off any of the skin glue. This will ensure optimal healing of your incision. Also, during this time avoid soaking the incision area in water - this includes swimming pools, hot tubs or baths. No ointments, lotions or oils on the incision until your surgeon allows. Leave jalen, sutures or glue in place. Neurological dysfunction that comes on suddenly can also be a sign of a stroke. Below some common symptoms of a stroke are listed: B - balance difficulty such as sudden onset walking or leaning to one side - NEW E - eye problem such as sudden double vision or trouble seeing on one side - NEW F - Facial weakness or numbness on one side - NEW A - Arm or leg weakness or numbness on one side - NEW S - Slurred speech or difficulty with word finding - NEW T - Time is BRAIN! Call 911 as soon as you recognize these symptoms Diet: Consume a regular diet rich in vegetables and lean protein such as chicken or fish. You should consume in a ratio of approximately 20% fats|40% carbohydrates|40%protein. Vegetables, sweet potatoes, brown rice or quinoa are examples of good carbohydrates. Chips, white bread, cookies and sweets/sugar are examples of bad carbohydrates. Limit your bad carbs, go wild with good carbs. 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 (1) Get Active. Physical activity can help people lose weight, control high blood pressure and cholesterol, feel emotionally better, and sleep better. (2) Control Cholesterol. Avoid a diet high in saturated fat, trans fat, & cholesterol. Limit whole milk & cream, ice cream, butter, egg yolks, processed meats (like sausage and hot dogs), and fatty meats. Choose healthy foods that are low in saturated fat, trans fat and cholesterol which include: Fruits and vegetables, fiber rich grain products (like whole grain pasta and brown rice), lean meat such as chicken, fish, nuts, seeds, and legumes. (3) Eat Better. Eat small portions. Shop at the grocery with a list and do not stray from it. Tips for a healthy diet include: Limit sodium intake to less than 1500mg daily, avoid prepackaged, processed, and fast foods, choose a diet rich in fruits, vegetables, and whole grain, high fiber foods, and limit saturated & cholesterol in your diet. (4) Manage Blood Pressure. If you have high blood pressure, you should have a cuff at home so that you can check your blood pressure regularly. Be sure you have a good cuff. An arm one is generally better than a wrist one. Bring the cuff to a doctor's appointment to validate that the measurements that your cuff are taking are accurate. Take your blood pressure twice daily when you are sitting down and relaxing. Record the numbers in a log and bring this log with you to your doctors' appointments. (5) Lose Weight if your BMI is above 25. A healthy BMI is between 19-25. To calculate Your BMI, you may use a Standard BMI Calculator on the NIH BMI website: <www.nhlbi.nih.gov/guidelines/obesity/BMI/bmicalc.htm>. Weigh oneself daily. If you are overweight, set a goal to lose weight. A pound a week loss if needed is a good target. (6) Reduce Blood Sugar. Limit foods and liquids with "added sugars." (Added sugars include sucrose, fructose, glucose, maltose, dextrose, high fructose corn syrup, corn syrup, concentrated fruit juice and honey). (7) Stop Smoking. If you smoke, quitting smoking is one of the best things that you can do for your health. Smoking increases your risk of heart attack, stroke, and peripheral vascular disease, which is a build-up of plaque in your arteries. Please discard all the cigarettes and lighters in your house. Have a plan for what you will do when you have the urge to smoke. Direct and second- hand smoke shortens your life as well as the lives of your family, friends and others around you. For your health and the health of those around you, please consider quitting! Proper Bending Body Mechanics: Maintain a wide stance with one foot slightly in front of the other. Keep your back straight. Bend utilizing the strength in your hips and knees. Do not bend at the waist. Maintain the lifted object at your waist-level close to your body. Avoid lifting weight that causes immediately pain or pain anywhere in the body afterwards. Smoking/Nicotine If there was ever one thing that you could do to increase your overall health, decrease your risk of cardiovascular problems by about 39% the second you make the choice, it is to STOP SMOKING. Your body's most instant gratification is the second you stop smoking. We have all heard the studies, read the articles but it is true, smoking is extremely bad for your overall health, and moreover it is detrimental to your bone health. Nicotine, IN ANY FORM, kills bone cells, prevents your body from healing fractures, and significantly prolongs healing after surgery. In spine surgery specifically, it increases your risk of not healing your bones to create a fusion and increases your risk of having a revision surgery due to this up to 60%. I know it is hard. I know it feels impossible. But there are ways. Take control of your life. We are here to help you through it. And when you are ready, ask us and we can direct you to help if you desire. Use the START Plan to Quit Smoking (please visit the Helpguide.org website listed below for more information): S = Set a quit date. Choose a date within the next 2 weeks, so you have enough time to prepare without losing your motivation to quit. If you mainly smoke at work, quit on the weekend, so you have a few days to adjust to the change. T = Tell family, friends, and co-workers that you plan to quit. Let your friends and family in on your plan to quit smoking and tell them you need their support and encouragement to stop. Look for a quit alisha who wants to stop smoking as well. You can help each other get through the rough times. A = Anticipate and plan for the challenges you'll face while quitting. Most people who begin smoking again do so within the first 3 months. You can help yourself make it through by preparing ahead for common challenges, such as nicotine withdrawal and cigarette cravings. R = Remove cigarettes and other tobacco products from your home, car, and work. Throw away all your cigarettes (no emergency pack!), lighters, ashtrays, and matches. Wash your clothes and freshen up anything that smells like smoke. Shampoo your car, clean your drapes and carpet, and steam your furniture. T = Talk to your doctor about getting help to quit. Your doctor can prescribe medication to help with withdrawal and suggest other alternatives. If you can't see a doctor, you can get many products over the counter at your local pharmacy or grocery store, including the nicotine patch, nicotine lozenges, and nicotine gum. Resources for Quitting Smoking: <https://www.[place].gov/documents/[facility]/Quit_Tobacco_Resources_for_patien ts_313480_7.pdf> Supplementation: Take recommended dosages of Vitamin D and Calcium to help fortify your bones and help them to heal. See your health maintenance packet for dosages and recommended levels. DVT/VTE prophylaxis: You will be given compression stockings from the hospital. Wear these daily for the first two weeks after surgery. You may take them off at night. You may be prescribed a medication to help thin your blood. Take this as directed. If you are not prescribed this medication, early and frequent ambulation has been shown to be the best prophylaxis to deep vein thrombosis and sequelae related to this event. Discharge Disposition: HOME SELF-CARE
--- NOTE | 2021-12-13 12:58 | P.OP ---
Date of Procedure: 12/12/21 Preoperative Diagnosis: 1. C4 to 7 spondylosis with stenosis 2. Upper extremity radiculopathy 3. Upper extremity weakness 4. Mechanical neck pain Postoperative Diagnosis: 1. C4 to 7 spondylosis with stenosis 2. Upper extremity radiculopathy 3. Upper extremity weakness 4. Mechanical neck pain Procedure(s) Performed: 1. C4 5, C5 6, C6 7 anterior cervical discectomy and fusion ([id number], [id number]) 2. Insertion of biomechanical device C4 5 C5 6 and C6 7. ([id number]) Use of intraoperative neuro monitoring. Implants: - Globus coalition MIS 8 mm implants - factor - autograft - DBM Anesthesia: GETA Surgeon: Dallin Sparks St[employer] Salesperson #1: Gregorio Dias ( was present and assisted in all aspects of the case including positioning exposure decompression hardware placement fusion closure and dressing placement) Estimated Blood Loss (ml): 50 IV fluids (ml): 1,500 Urine output (ml): 250 Pathology: none sent Condition: stable Disposition: PACU Indications for Procedure: Mr. Galan is presenting for evaluation of cervical pain and bilateral upper extremity radiculopathy. It was my pleasure to have seen and examined Mr. Gaaln. In our visit today we have had a chance to go over subjective complaints, physical examination findings and treatments including the natural course history without intervention and various interventional options. The patients imaging demonstrates: XRay taken on 10/03/20 of Cervical was reviewed by Dr. Brewer and indicates: - C5-7 spondylosis with disc collapse, osteophyte formation and facet arthrosis. NO overt instability noted on Flex/ex films at this time C0-1 and C1-2 appear stable at this time as well. No subaxial instability. Similar finding with C4-7 spondylosis with stenosis related. No myelomalacia. No fracture, no lesions noted. These are old findings and the Xray suggest that this is advanced since this MRI. MRI scan from of Cervical Spine: MRI of the cervical spine is reviewed in the office today.there is spondylosis noted from C4 to C7 which is worse at C5 6 and C6 7. There are Modic endplate changes at these levels. There are large central disc herniations at C5 6 and C6 7 causing moderate to severe stenosis centrally. There is mild stenosis noted at C4-C5 from chronic disc herniation at C4-C5. There is no myelomalacia noted at this time. There is cord contact however of C5-C6 C6-C7. There is retrolisthesis of C6 on C7. There is straightening of the normal cervical lordosis with accentuated cervical lordosis through C6-C7 due to fish mouthing at this area. Occipital cervical C1 2 joints appear stable. No fracture or dislocation noted. Radiology read below IMPRESSIONS: 1. Mild degenerative disc changes with disc bulging C5-6 C6-7. 2. Resolution of previous right paracentral C4-5 disc bulge. 3. Foraminal stenosis C5-6 C6-7 from uncovertebral joint hypertrophy. On physical exam, Mr. Galan demonstrates restricted cervical ROM with bilateral upper extremity radiculopathy and weakness. Patient also demonstrates dermatomal deficits about the C5-C6 distribution of the right upper extremity. I have explained to the patient that as their condition progresses it will cause further neurological deficits and eventual paralysis. Based on the patients imaging, physical exam, and the rapid progression and disabling nature of their symptoms, at this time I recommend surgery in the form or a: cervical(C4-C7) ACDF. I discussed the risk and benefits of this procedure at length with Mr. Galan. The patient agreed to considered pursuing the procedure abovementioned. Prior to surgery, she should follow up with her PCP (Cardio, ID, IM etc) for clearance. Questions were invited and answered, and the patient wishes to proceed as outlined below. Currently, I am recommendin.cervical(C4-C7) ACDF Description of Procedure: The patient was seen and examined in the preoperative area. All preoperative protocols were followed. Informed consent was obtained risks and benefits of the procedure were discussed at length. Risks including bleeding infection damage to the surrounding tissue and risk of reoperation were discussed with the patient. Risk of anesthesia up to and including was a discussed with the patient. These are outlined in the risk review. They were willing to accept these risks and all of the risks of surgery. The patient was given a weight- based dose of antibiotics in the form of 2 g Ancef. The patient was seen and evaluated by the anesthesia team who deemed them fit for surgery. The site was marked, the patient was willing to proceed with the procedure. The patient was transferred to the operative suite by the Department of anesthesia. They were then drifted off to sleep by the department anesthesia and GETA was performed. The patient tolerated this well. [Miranda catheter was placed by nursing staff, atraumatically]. Once confirmation of lines and ventilation the patient was transferred to a supine flattop Gamal table. Shoulder roll was placed. arms were gently taped down to the table All bony prominences including wrists, elbows, axilla, chest, hips, and thighs, and feet were padded very well. Special attention was paid to the genitalia and these were padded accordingly. SCDs were placed on bilateral lower extremities and were connected. Arms were well padded and placed tucked at his side thumbs up well-padded. Once in position, again we confirmed good ventilation capabilities and that lines were running appropriately. The patient's anterior cervical spine was then exposed. 1010s were placed outlining the incision site. Standard alcohol was used to clean the incision site and allowed to dry. C-arm was used to biomark the patient and confirm level for incision which was marked with a skin marker. Operative briefing was performed with all teams and everyone in agreement to proceed. The patient was then prepped and draped in a normal sterile fashion. Timeout was then performed and all parties were in agreement with the procedure to be performed. transverse skin incision was then made over the previous about marked area on the right side of the neck and a standard Celis-Pitt approach the anterior cervical spine was taken out. Blunt dissection taken down until the medial structures were mobilized off the anterior cervical spine anterior cervical spine was identified. Retractors were then placed and a blunt probe used to identify levels for operation lateral fluoroscopic imaging confirmed these levels. We then performed subperiosteal dissection of the longissimus muscles from C4 through C7. Retractors then placed deep to this. Starting at C6-C7 [place] pins were placed in C6-C7 and careful distraction taken across the joint. Operating microscope was then brought in for visualization. Complete discectomy was then performed using high-speed bur Kerrison rongeurs and curettes. Good bleeding endplates were accomplished. Anterior and posterior osteophytes were removed with high-speed bur and PLL was identified and resected using up-biting curettes as well as Kerrison rongeur. Bilateral foraminotomies were then performed Kerrison rongeur. Meticulous hemostasis perform the disc space was irrigated and we then sized the disc space once the disc space was sized the final implant was selected and impacted into position under lateral fluoroscopic imaging. Motors before and after remaining stable. We then placed the impactors for the jalen and these were impacted under lateral fluoroscopic guidance. The side panel padder was then removed and the jalen were locked using locking mechanism. [place] pin was then removed from C7 and replaced in the C5. Retractors were removed were removed and distractor was placed careful distraction was taken out over C5-C6. Complete discectomy was performed using Kerrison rongeur rongeur and curettes until good bleeding endplates were accomplished. High-speed bur was then used to remove anterior posterior osteophytes until PLL was identified pills identified and resected using up- biting curette as well as a Kerrison rongeur. Bilateral foraminotomies were performed using Kerrison rongeur. Once this was accomplished the disc space was irrigated copiously and the and meticulous hemostasis performed. sizes were then used under lateral fluoroscopic guidance to size the disc space once this was accomplished a implant was selected it was packed with graft and then impacted i nto place under lateral fluoroscopic guidance once in position the stable impactor was placed this was impacted under lateral fluoroscopic guidance and the jalen were in good position the side panel padder was then removed and the locking mechanism set for jalen. The implant was stable. [place] pin was then removed from C6 and placed into C4. Bone wax placed in the void. Retractors were replaced and careful distraction was then placed over C4-C5. Complete discectomy was then performed in this area in a similar fashion anterior posterior osteophytes removed with high-speed bur pillow was identified and resected using up-biting curette and Kerrison rongeur bilateral foraminotomies performed with Kerrison rongeur. Meticulous hemostasis performed disc space was irrigated and confirmed good bleeding endplates. We then sized the disc space and selected cage cages then was then packed and impacted into position or lateral fluoroscopic guidance. Once in good position the jalen were then im pacted into position under lateral fluoroscopic guidance side panel padder was removed and the lock was set for the jalen. The implant was stable. We then copiously irrigated the wound final fluoroscopic imaging AP and lateral confirmed good placement of hardware good reduction of alignment good lordosis and decompression. We then placed Surgicel deep within the wound a deep drain was placed. Was sewn in position. We then proceeded with layered closure platysma was closed which was split longitudinally with 3-0 Vicryl subcu was closed with 3-0 Vicryl and subcuticular closed with 40 strata fix. Wound edges approximated well was then cleaned and dressed with Dermabond glue which was allowed to dry followed by dressing. The patient was placed in a hard cervical collar. The patient was transferred back to their hospital bed atraumatically. [Drain continued to hold suction and were in good position]. Patient was then awakened and extubated by the department of anesthesia having tolerated the procedure very well with no complications. They were transferred to the postoperative care unit in stable condition.
[2021-12-13 14:15] VITALS: PULSE 68; RESP 18; TEMP 98.4
[2021-12-13] MEDS ORDERED: LABETALOL 200 MG TAB PO STA (14:31)
[2021-12-13 15:40] VITALS: BP 152/78
== END 2021-12-13 18:16 | disposition home or self-care (01) | DRG 473 ==
LOC: 2ORMAIN 05:51 → 5NMEDONC 13:03
PROVIDERS: ADMIT Orthopaedic Surgery; ATTEND Orthopaedic Surgery
PROC: 0RG20A0 Fusion of 2 or more Cervical Vertebral Joints with Interbody Fusion Device, Anterior Approach, Anterior Column, Open Approach (ICD-10-PCS; principal; 2021-12-12 07:30)
PROC: 3E0U0GB Introduction of Recombinant Bone Morphogenetic Protein into Joints, Open Approach (ICD-10-PCS; principal; 2021-12-12 07:30)
PROC: 4A11X4G Monitoring of Peripheral Nervous Electrical Activity, Intraoperative, External Approach (ICD-10-PCS; principal; 2021-12-12 07:30)
PROC: 01N10ZZ Release Cervical Nerve, Open Approach (ICD-10-PCS; principal; 2021-12-12 07:30)
PROC: 8E09XBG Computer Assisted Procedure of Head and Neck Region, With Computerized Tomography (ICD-10-PCS; principal; 2021-12-12 07:30)
PROC: 0RT30ZZ Resection of Cervical Vertebral Disc, Open Approach (ICD-10-PCS; principal; 2021-12-12 07:30)
DX: M43.12 Spondylolisthesis, cervical region (principal); M48.02 Spinal stenosis, cervical region; J44.9 Chronic obstructive pulmonary disease, unspecified; I11.0 Hypertensive heart disease with heart failure; I50.9 Heart failure, unspecified; M50.223 Other cervical disc displacement at C6-C7 level; M47.22 Other spondylosis with radiculopathy, cervical region; M50.123 Cervical disc disorder at C6-C7 level with radiculopathy; M19.90 Unspecified osteoarthritis, unspecified site; F41.9 Anxiety disorder, unspecified; F17.210 Nicotine dependence, cigarettes, uncomplicated; F31.9 Bipolar disorder, unspecified; Z79.82 Long term (current) use of aspirin; Z79.899 Other long term (current) drug therapy; Z82.49 Family history of ischemic heart disease and other diseases of the circulatory system; Z88.8 Allergy status to other drugs, medicaments and biological substances; Z87.01 Personal history of pneumonia (recurrent)
CPT/HCPCS: 72040; 72125; 80048; 85025; 86850; 86900; 86901

== ENCOUNTER 2021-12-17 19:29 | Inpatient (IN) | payer MEDICARE, OTHER ==
[2021-12-17] MEDS ORDERED: HYDROmorphone 1 MG/ML 1 ML SYRINGE IVP STA ×2 (19:59→21:05)
[2021-12-17] MEDS ORDERED: ONDANSETRON 4 MG/2 ML VIAL IVP STA (19:59)
--- NOTE | 2021-12-17 20:20 | ED ---
General Adult HPI - General Chief complaint: Recheck/Abnormal Lab/Rx Stated complaint: swelling neck/post surg/vomiting Time Seen by Provider: 12/17/21 19:34 Source: patient, RN notes reviewed Mode of arrival: ambulatory Limitations: no limitations - History of Present Illness Initial comments: 56-year-old male presents to the emergency department for evaluation of increased redness, swelling, and pain around the incision site of his recent cervical spine surgery. Patient states symptoms began on Saturday and have continued to worsen. Patient states he has pain with swallowing and a full sensation in his neck. Has been taking Percocet as prescribed with no relief. Complains of mild nausea. Did not take his temperature prior to arrival. Finis hed taking oral antibiotic today. Denies fever, chills, shortness of breath, difficulty breathing, chest pain, or abdominal pain. - Related Data Home Medications Medication Instructions Recorded Confirmed HYDROcodone/APAP 7.5-325MG [Leonidas 1 tab PO TID PRN 12/17/19 12/12/21 7.5-325] allopurinoL 100 mg PO DAILY 11/06/21 12/12/21 tiZANidine [Zanaflex] 4 mg PO TID 11/06/21 12/12/21 Albuterol Inhaler [Ventolin Hfa 2 puff INHALATION QID 12/08/21 12/12/21 Inhaler] Gabapentin 600 mg PO TID 12/08/21 12/12/21 Losartan [Cozaar] 50 mg PO QAM 12/08/21 12/12/21 Sertraline [Zoloft] 100 mg PO QAM 12/08/21 12/12/21 Previous Rx's Medication Instructions Recorded Aspirin 81 mg PO DAILY 05/24/21 Metoprolol Tartrate [Lopressor] 25 mg PO BID 30 Days tab 05/24/21 Mirtazapine [Remeron] 15 mg PO HS 30 Days tab 05/24/21 Cyclobenzaprine [Flexeril] 5 mg PO TID #90 tablet 12/13/21 Gabapentin [Neurontin] 300 mg PO TID #90 cap 12/13/21 Sennosides/Docusate Sodium [Senna 1 each PO DAILY PRN #20 capsule 12/13/21 Plus 8.6-50 mg Softgel] cefaDROXiL [Duricef] 500 mg PO Q12HR 3 Days #6 cap 12/13/21 oxyCODONE HCL/ACETAMINOPHEN 1 tab PO Q4HR PRN #56 tab 12/13/21 [Percocet 5-325 mg] Allergies Allergy/AdvReac Type Severity Reaction Status Date / Time clonidine [From Catapres] AdvReac Vomiting Verified 12/17/21 19:33 Review of Systems ROS Statement: Those systems with pertinent positive or pertinent negative responses have been documented in the HPI. ROS Other: All systems not noted in ROS Statement are negative. Past Medical History Past Medical History: COPD, Hypertension, Osteoarthritis (OA), Pneumonia Additional Past Medical History / Comment(s): Hx ETOH abuse(no alcohol since 05/15/21), past withdrawal per pt with shaking/nausea and diarrhea, pancreatitis, diverticulitis, chronic cervical/back pain/DDD and cervical spondylosis, bronchitis. History of Any Multi-Drug Resistant Organisms: C-DIFF Date of last positivie culture/infection: 2005 MDRO Source:: stool Past Surgical History: Bowel Resection Additional Past Surgical History / Comment(s): Bowel resection with 10 inches removed d/t diverticulitis, colonoscopy, benign lump removed from scrotum, bilateral rotator cuff repair, pain clinic procedures. Past Anesthesia/Blood Transfusion Reactions: No Reported Reaction Past Psychological History: Anxiety, Bipolar, Depression Smoking Status: Current every day smoker Past Alcohol Use History: Abuse, Daily, Heavy Past Drug Use History: Marijuana - Past Family History Father Family Medical History: Congestive Heart Failure (CHF) Additional Family Medical History / Comment(s): Father was healthy. Mother Family Medical History: Congestive Heart Failure (CHF) General Exam Limitations: no limitations (Well-developed, well-nourished male in no acute distress though does appear moderately uncomfortable and somewhat anxious. Initial temperature 98.3, recheck 99.2, pulse 120, recheck 1:30, respirations 20, blood pressure 132/77, pulse ox 96% on room air.) General appearance: alert, in no apparent distress, anxious ENT exam: Present: normal oropharynx, mucous membranes moist Expanded Mouth exam: Absent: trismus Throat exam: normal inspection Neck exam: Present: tenderness, other (surgical incision intact with no drainage. Firm, tender, erythematous area along the superior border of the incision site. Patient complains of tenderness upon palpation inferior to the incision where drain was removed. Discomfort, erythema, and swelling localized. ). Absent: lymphadenopathy Expanded Neck exam: Absent: midline deformity, tracheal deviation Respiratory exam: Present: normal lung sounds bilaterally. Absent: respiratory distress, wheezes, rales, rhonchi, stridor, chest wall tenderness Cardiovascular Exam: Present: normal rhythm, tachycardia, normal heart sounds GI/Abdominal exam: Present: soft, normal bowel sounds. Absent: distended, tenderness, guarding, rebound, rigid Neurological exam: Present: alert, oriented X3, normal gait Psychiatric exam: Present: anxious Skin exam: Present: warm, dry, normal color. Absent: rash Course Vital Signs 12/17/21 12/17/21 12/17/21 19:31 23:41 23:42 Temperature 98.3 F 98.6 F Pulse Rate 128 H 89 Respiratory 20 17 Rate Blood Pressure 132/77 100/59 O2 Sat by Pulse 96 94 L Oximetry - Reevaluation(s) Reevaluation #1: 12/17/21 21:13 Upon reassessment, patient continues to complain of 8 out of 10 pain. Additional dose of Dilaudid was ordered. Patient did explain that he has been on an oral antibiotic and took his last dose yesterday. Medical record reviewed and there was concern for abscess development in the soft tissues of the neck. CT pending at this time. 12/17/21 22:00 Given patient's initial presentation of tachycardia, recent antibiotic use/concern for infection, and lactic acidosis, there is some reasonable concern for Sepsis. Upon reassessment, patient rates pain 7 out of 10, but does appear much more comfortable. Incision site remains mildly erythematous with firm palpable area superior to the incision border. No difficulty swallowing. Lungs lungs are clear to auscultation. Heart rate remains somewhat elevated. Abdomen soft and nontender. Alert and oriented. Answering questions appropriately. Vital signs reassessed. T=98.2, RR=18, AJ=467 12/17/21 23:00 Patient remains afebrile and heart rate has improved with fluids and pain medicine. Patient does not meet SIRS criteria. CT does show fluid accumulation concerning for abscess therefore patient will be admitted to the hospital. I spoke with Dr. Hummel who agrees to accept this admission, and John Sadler NP regarding this patient's care. Medical Decision Making - Medical Decision Making This is a 56-year-old male with a past medical history of COPD, alcoholism, and osteoarthritis who presents to the emergency department with concerns of possible surgical incision site infection status post cervical spine surgery. Upon exam, patient is anxious but well-appearing and in no acute distress aside from pain. He is able to swallow without difficulty though does complain of discomfort. No difficulty breathing. Laboratory studies were obtained showing mild lactic acidosis. CT shows irregular fluid collection concerning for seroma, hematoma, or abscess. Given patient's initial tachycardia, complete increased erythema, and lactic acidosis, he was given IV fluids, antibiotic, and pain medicine with modest improvement in heart rate and some improvement and level of discomfort. Patient will be admitted to the hospital for further evaluation and treatment. Attending: Dwayne. - Lab Data Result diagrams: 12/17/21 20:17 12/17/21 20:17 Lab Results 12/17/21 12/17/21 12/17/21 Range/Units 20:17 20:17 20:17 WBC 10.9 H (3.8-10.6) k/uL RBC 4.69 (4.30-5.90) m/uL Hgb 15.2 (13.0-17.5) gm/dL Hct 43.7 (39.0-53.0) % MCV 93.2 (80.0-100.0) fL MCH 32.4 (25.0-35.0) pg MCHC 34.8 (31.0-37.0) g/dL RDW 12.3 (11.5-15.5) % Plt Count 344 (150-450) k/uL MPV 7.8 Neutrophils % 60 % Lymphocytes % 25 % Monocytes % 8 % Eosinophils % 3 % Basophils % 1 % Neutrophils # 6.6 (1.3-7.7) k/uL Lymphocytes # 2.7 (1.0-4.8) k/uL Monocytes # 0.8 (0-1.0) k/uL Eosinophils # 0.4 (0-0.7) k/uL Basophils # 0.1 (0-0.2) k/uL PT 9.9 (9.0-12.0) sec INR 0.9 (<1.2) APTT 23.9 (22.0-30.0) sec Sodium 138 (137-145) mmol/L Potassium 3.6 (3.5-5.1) mmol/L Chloride 101 (98-107) mmol/L Carbon Dioxide 20 L (22-30) mmol/L Anion Gap 17 mmol/L BUN 12 (9-20) mg/dL Creatinine 0.87 (0.66-1.25) mg/dL Est GFR (CKD-EPI)AfAm >90 (>60 ml/min/1.73 sqM) Est GFR (CKD-EPI)NonAf >90 (>60 ml/min/1.73 sqM) Glucose 110 H (74-99) mg/dL Lactic Ac Sepsis Rflx Plasma Lactic Acid David (0.7-2.0) mmol/L Calcium 9.4 (8.4-10.2) mg/dL Total Bilirubin 0.5 (0.2-1.3) mg/dL AST 26 (17-59) U/L ALT 19 (4-49) U/L Alkaline Phosphatase 59 (38-126) U/L Total Protein 7.1 (6.3-8.2) g/dL Albumin 4.3 (3.5-5.0) g/dL 12/17/21 12/17/21 Range/Units 20:17 21:06 WBC (3.8-10.6) k/uL RBC (4.30-5.90) m/uL Hgb (13.0-17.5) gm/dL Hct (39.0-53.0) % MCV (80.0-100.0) fL MCH (25.0-35.0) pg MCHC (31.0-37.0) g/dL RDW (11.5-15.5) % Plt Count (150-450) k/uL MPV Neutrophils % % Lymphocytes % % Monocytes % % Eosinophils % % Basophils % % Neutrophils # (1.3-7.7) k/uL Lymphocytes # (1.0-4.8) k/uL Monocytes # (0-1.0) k/uL Eosinophils # (0-0.7) k/uL Basophils # (0-0.2) k/uL PT (9.0-12.0) sec INR (<1.2) APTT (22.0-30.0) sec Sodium (137-145) mmol/L Potassium (3.5-5.1) mmol/L Chloride (98-107) mmol/L Carbon Dioxide (22-30) mmol/L Anion Gap mmol/L BUN (9-20) mg/dL Creatinine (0.66-1.25) mg/dL Est GFR (CKD-EPI)AfAm (>60 ml/min/1.73 sqM) Est GFR (CKD-EPI)NonAf (>60 ml/min/1.73 sqM) Glucose (74-99) mg/dL Lactic Ac Sepsis Rflx Y Plasma Lactic Acid David 2.6 H* (0.7-2.0) mmol/L Calcium (8.4-10.2) mg/dL Total Bilirubin (0.2-1.3) mg/dL AST (17-59) U/L ALT (4-49) U/L Alkaline Phosphatase (38-126) U/L Total Protein (6.3-8.2) g/dL Albumin (3.5-5.0) g/dL - Radiology Data Radiology results: report reviewed, image reviewed CT soft tissue neck was obtained. Report was reviewed in its entirety. Impression per Dr. Zavala is irregular fluid extending from the prevertebral soft tissues to the anterior neck on the right side in the area of the surgical site. This appearance is nonspecific and would include a seroma or hematoma or abscess. Follow-up is recommended. Disposition Clinical Impression: Post-op pain, Abscess Disposition: ADMITTED IP TO THIS [facility] Condition: Serious Decision Date: 12/17/21 Decision Time: 23:11
[2021-12-17 20:39] LABS: Basophils # (A) 0.1 k/uL (0-0.2); Basophils % (A) 1 %; Eosinophils # (A) 0.4 k/uL (0-0.7); Eosinophils % (A) 3 %; HCT 43.7 % (39.0-53.0); HGB 15.2 gm/dL (13.0-17.5); Lymphocytes # (A) 2.7 k/uL (1.0-4.8); Lymphocytes % (A) 25 %; MCH 32.4 pg (25.0-35.0); MCHC 34.8 g/dL (31.0-37.0); MCV 93.2 fL (80.0-100.0); Mean Platelet Volume 7.8; Monocytes # (A) 0.8 k/uL (0-1.0); Monocytes % (A) 8 %; Neutrophils # (A) 6.6 k/uL (1.3-7.7); Neutrophils % (A) 60 %; Platelet Count 344 k/uL (150-450); RBC 4.69 m/uL (4.30-5.90); RDW 12.3 % (11.5-15.5); WBC 10.9 k/uL (3.8-10.6)
[2021-12-17] MEDS: SODIUM CHLORIDE 0.9% 500 ML 500 ML IV SCH ×2 (20:50→21:23)
[2021-12-17] MEDS: SODIUM CHLORIDE 0.9% 1,000 ML IV SCH ×2 (20:50→23:20)
[2021-12-17 20:52] LABS: INR 0.9 (<1.2); Partial Thromboplastin Time 23.9 sec (22.0-30.0); Prothrombin Time 9.9 sec (9.0-12.0)
[2021-12-17 20:56] LABS: ALT 19 U/L (4-49); AST 26 U/L (17-59); African American GFR (CKD) >90 (>60 ml/min/1.73 sqM); Albumin 4.3 g/dL (3.5-5.0); Alkaline Phosphatase 59 U/L (38-126); Anion Gap 17 mmol/L; Blood Urea Nitrogen 12 mg/dL (9-20); Calcium 9.4 mg/dL (8.4-10.2); Carbon Dioxide 20 mmol/L (22-30); Chloride 101 mmol/L (98-107); Glucose 110 mg/dL (74-99); Non-African American GFR(CKD) >90 (>60 ml/min/1.73 sqM); Potassium 3.6 mmol/L (3.5-5.1); Sodium 138 mmol/L (137-145); Total Bilirubin 0.5 mg/dL (0.2-1.3); Total Protein 7.1 g/dL (6.3-8.2)
--- NOTE | 2021-12-17 21:13 | CT ---
EXAMINATION TYPE: CT soft tissue neck w con DATE OF EXAM: 12/17/2021 COMPARISON: None HISTORY: Neck Sx on Saturday, now there is redness and swelling around the incision site CT DLP: 340.1 mGycm Automated exposure control for dose reduction was used. CONTRAST: Performed with IV Contrast, patient injected with 100cc mL of Isovue 300. Images obtained from the top of the orbits to the T2 vertebra with the IV contrast. There is anterior fusion surgery with screws and disc prosthesis at C4-5 and C5-6 and C6-7. Normal alignment. Posterior elements are intact. There is increased fluid density in the prevertebral soft tissues extending to the right side this measures up to 1.7 cm in thickness. There are a few ai r bubbles. There are surgical clips in the subcutaneous tissues at the anterior right side of the mid neck. The epiglottis is normal. Subglottic trachea is normal. The tongue appears normal. The tonsils and ad enoids appear normal. The submandibular salivary glands are symmetric. The parotid glands are symmetric. There is bilateral mucous retention cysts in the maxillary sinuses. IMPRESSION: Irregular fluid extending from the prevertebral soft tissues to the anterior neck on the right side i n the area of the surgical site. This appearance is nonspecific and would include a seroma or hematom a or abscess. Follow-up is recommended.
[2021-12-17] MEDS ORDERED: diphenhydrAMINE 50 MG/ML 1 ML VIAL IVP STA (21:48)
[2021-12-17] MEDS ORDERED: SODIUM CHLORIDE 0.9% 1,000 ML IV STA (21:59)
[2021-12-17] MEDS ORDERED: ONDANSETRON 4 MG/2 ML VIAL IVP PRN (23:01)
[2021-12-17] MEDS ORDERED: NALOXONE 0.4 MG/ML 1 ML VIAL IV PRN (23:01)
[2021-12-17] MEDS ORDERED: ACETAMINOPHEN TAB 325 MG TAB PO PRN (23:01)
[2021-12-17] MEDS ORDERED: VANCOMYCIN IV PER PHARMACY 1 EACH MISC MISCELLANE PRN (23:05)
[2021-12-17] MEDS: HYDROmorphone 1 MG/ML 1 ML SYRINGE IVP PRN (23:33)
[2021-12-17] MEDS ORDERED: VANCOMYCIN 1,500 MG in SODIUM CHLORIDE 0.9% 500 ML 500 ML IVPB ONE (23:45)
[2021-12-18] MEDS: KETOROLAC 15 MG/ML 1 ML VIAL IVP SCH ×4 (00:35→17:03)
[2021-12-18] MEDS: HYDROmorphone 1 MG/ML 1 ML SYRINGE IVP PRN ×7 (02:58→23:22)
[2021-12-18] MEDS: SODIUM CHLORIDE 0.9% 1,000 ML IV SCH ×5 (04:22→15:55)
[2021-12-18 06:43] LABS: Basophils # (A) 0.1 k/uL (0-0.2); Basophils % (A) 1 %; Eosinophils # (A) 0.3 k/uL (0-0.7); Eosinophils % (A) 4 %; HCT 40.4 % (39.0-53.0); HGB 13.4 gm/dL (13.0-17.5); Lymphocytes # (A) 2.1 k/uL (1.0-4.8); Lymphocytes % (A) 38 %; MCH 31.9 pg (25.0-35.0); MCHC 33.2 g/dL (31.0-37.0); MCV 96.2 fL (80.0-100.0); Mean Platelet Volume 7.5; Monocytes # (A) 0.5 k/uL (0-1.0); Monocytes % (A) 9 %; Neutrophils # (A) 2.5 k/uL (1.3-7.7); Neutrophils % (A) 44 %; Platelet Count 229 k/uL (150-450); RDW 12.3 % (11.5-15.5); WBC 5.6 k/uL (3.8-10.6)
--- NOTE | 2021-12-18 06:55 | P.CNOR ---
History of Present Illness - [facility] Consult date: 12/18/21 Consult reason: neck pain History of present illness: 56 yo male underwent C4-7 ACDF last week lee presented last night with increasing pain and swelling as well as redness about the incision site. He states it was doing OK and then yesterday it was worse. Denies any swallowing difficulties or breathing issues. States no arm or neck issues. He has some pain in neck that is better than it has been. Denies any f/c/sob/cp at this time. Review of Systems 14 points review of systems completed and as stated in HPI, all other systems reviewed are negative. Constitutional: Reports as per HPI Past Medical History Past Medical History: COPD, Hypertension, Osteoarthritis (OA), Pneumonia Additional Past Medical History / Comment(s): Hx ETOH abuse(no alcohol since 05/15/21), past withdrawal per pt with shaking/nausea and diarrhea, pancreatitis, diverticulitis, chronic cervical/back pain/DDD and cervical spondylosis, bronchitis. History of Any Multi-Drug Resistant Organisms: C-DIFF Year Discovered:: 2005 MDRO Source:: stool Past Surgical History: Bowel Resection Additional Past Surgical History / Comment(s): Bowel resection with 10 inches removed d/t diverticulitis, colonoscopy, benign lump removed from scrotum, bilateral rotator cuff repair, pain clinic procedures. Past Anesthesia/Blood Transfusion Reactions: No Reported Reaction Past Psychological History: Anxiety, Bipolar, Depression Smoking Status: Current every day smoker Past Alcohol Use History: Abuse, Daily, Heavy Past Drug Use History: Marijuana - Past Family History Father Family Medical History: Congestive Heart Failure (CHF) Additional Family Medical History / Comment(s): Father was healthy. Mother Family Medical History: Congestive Heart Failure (CHF) Medications and Allergies Home Medications Medication Instructions Recorded Confirmed Type HYDROcodone/APAP 7.5-325MG [[place] 1 tab PO TID PRN 12/17/19 12/12/21 History 7.5-325] Aspirin 81 mg PO DAILY 05/24/21 12/12/21 Rx Metoprolol Tartrate [Lopressor] 25 mg PO BID 30 Days tab 05/24/21 12/12/21 Rx Mirtazapine [Remeron] 15 mg PO HS 30 Days tab 05/24/21 12/12/21 Rx allopurinoL 100 mg PO DAILY 11/06/21 12/12/21 History tiZANidine [Zanaflex] 4 mg PO TID 11/06/21 12/12/21 History Albuterol Inhaler [Ventolin Hfa 2 puff INHALATION QID 12/08/21 12/12/21 History Inhaler] Gabapentin 600 mg PO TID 12/08/21 12/12/21 History Losartan [Cozaar] 50 mg PO QAM 12/08/21 12/12/21 History Sertraline [Zoloft] 100 mg PO QAM 12/08/21 12/12/21 History Cyclobenzaprine [Flexeril] 5 mg PO TID #90 tablet 12/13/21 Rx Gabapentin [Neurontin] 300 mg PO TID #90 cap 12/13/21 Rx Sennosides/Docusate Sodium [[place] 1 each PO DAILY PRN #20 capsule 12/13/21 Rx Plus 8.6-50 mg Softgel] cefaDROXiL [Duricef] 500 mg PO Q12HR 3 Days #6 cap 12/13/21 Rx oxyCODONE HCL/ACETAMINOPHEN 1 tab PO Q4HR PRN #56 tab 12/13/21 Rx [Percocet 5-325 mg] Allergies Allergy/AdvReac Type Severity Reaction Status Date / Time clonidine [From Catapres] AdvReac Vomiting Verified 12/17/21 19:33 Physical Examination Osteopathic Statement: *. No significant issues noted on an osteopathic structural exam other than those noted in the History and Physical/Consult. Physical Exam: -Patient is alert and oriented 3 appears well-nourished well-hydrated is in no acute distress. They do not appear septic. -There is TTP about the anterior incision on the right-hand side of the neck incision is without drainage but is erythematous painful to touch and has raised areas underneath. Some of these seem postop however with the increasing erythema and the pain somewhat concerning. -Upper extremities show 4+ out of 5 strength in all major muscle groups. normal deconditioning -Lower extremities with 4+ out of 5 strength in all major muscle groups normal deconditioning -There is [FROM] that is [painless] of the b/l UE and LE in all major joints. -They are intact to light touch sensation in C5 to T1 and L2 to S1 nerve distribution. -DTR [2]/4 all upper and lower extremities -Patient has palpable distal pulses all 4 ext -Compartments are soft and compressible. -Patient shows a negative Moy's [-Neg Hoffmans b/l] [-Neg Clonus b/l] [-Neg babinski b/l] Cranial nerves II through XII are grossly intact. Results CT is reviewed of the cervical spine. There is prevertebral soft tissue swelling extending from the prevertebral area to the anterior portion superficially in the cervical spine. This is somewhat nonspecific and could represent postoperative fluid collection seroma hematoma or possibly abscess. Hardware is in good position and without any issues. Overall alignment is maintained. Good decompression noted still. - Labs Labs: Abnormal Lab Results - Last 24 Hours (Table) 12/17/21 12/17/21 12/17/21 Range/Units 20:17 20:17 20:17 WBC 10.9 H (3.8-10.6) k/uL RBC (4.30-5.90) m/uL Carbon Dioxide 20 L (22-30) mmol/L Glucose 110 H (74-99) mg/dL Plasma Lactic Acid David 2.6 H* (0.7-2.0) mmol/L 12/18/21 Range/Units 06:05 WBC (3.8-10.6) k/uL RBC 4.20 L (4.30-5.90) m/uL Carbon Dioxide (22-30) mmol/L Glucose (74-99) mg/dL Plasma Lactic Acid David (0.7-2.0) mmol/L H & H 12/17/21 12/18/21 Range/Units 20:17 06:05 Hgb 15.2 13.4 (13.0-17.5) gm/dL Hct 43.7 40.4 (39.0-53.0) % Coagulation 12/17/21 Range/Units 20:17 INR 0.9 (<1.2) Result Diagrams: 12/18/21 06:05 12/17/21 20:17 Assessment and Plan Assessment: 1. Postoperative pain 2. Possible developing abscess anterior neck wound Plan: -Appreciate office 365 consultant and team management. -Activity: Ambulate QID, OOB all meals, up and about, limit lifting bending twisting to less than 5 lbs. Use walker or cane if needed for stability. -Daily PT/OT, increase ambulation strength and balance. - C collar at all times when up and about -Pain control: [Adequate at this time] -Meds: [reviewed] -GI ppx: senna, Miralax -DVT PPX: mechanical -Hygiene: Shower today. Maintain dressing clean and dry. Meticulous cleaning after BMs away from incision site -Encourage IS 10x/hr - tentative plan will be boarding for tomorrow 11/18/21 for I&D of surgical wound with cultures. Would continue antibiotics at this time. Appreciate ID recs. -Dispo: [Pending]
[2021-12-18 06:59] LABS: ALT 16 U/L (4-49); AST 22 U/L (17-59); African American GFR (CKD) >90 (>60 ml/min/1.73 sqM); Albumin 3.2 g/dL (3.5-5.0); Alkaline Phosphatase 49 U/L (38-126); Anion Gap 11 mmol/L; Blood Urea Nitrogen 10 mg/dL (9-20); Calcium 7.9 mg/dL (8.4-10.2); Carbon Dioxide 22 mmol/L (22-30); Chloride 108 mmol/L (98-107); Glucose 96 mg/dL (74-99); Non-African American GFR(CKD) >90 (>60 ml/min/1.73 sqM); Potassium 3.8 mmol/L (3.5-5.1); Sodium 141 mmol/L (137-145); Total Bilirubin 0.3 mg/dL (0.2-1.3); Total Protein 5.6 g/dL (6.3-8.2)
[2021-12-18] MEDS: VANCOMYCIN 1,500 MG in SODIUM CHLORIDE 0.9% 500 ML 500 ML IVPB SCH ×2 (09:13→20:16)
[2021-12-18 11:45] LABS: Erythrocyte Sedimentation Rate 30 mm/hr (0-15)
[2021-12-18] MEDS ORDERED: HYDROcodone/APAP 7.5-325MG 1 EACH TAB PO PRN (12:21)
[2021-12-18] MEDS ORDERED: tiZANidine 4 MG TAB PO PRN (12:21)
[2021-12-18] MEDS ORDERED: SENNOSIDES-DOCUSATE SODIUM 1 EACH TAB PO PRN (12:21)
--- NOTE | 2021-12-18 12:45 | P.HPIM ---
History of Present Illness H&P Date: 12/18/21 This is a 56-year-old male presents to hospital with concern for pain and redness at his cervical incisional site that began on Saturday. Patient also reports fever and chills. He does have some nausea. Since surgery he has reported some difficulty swallowing and also reports a funny taste in his mouth. No vomiting or diarrhea noted. He denies any chest pain or shortness of breath. He does report a cough with brown tinged sputum noted the patient is a half pack per day smoker which he continues. Patient underwent successful C4-C7 ACDF while in the hospital for a diagnosis of cervical spondylosis with stenosis. He was discharged on 12/13 and sent on antibiotics for 3 days as well as pain management with Percocet 5mg every 4 hours, Flexeril and Neurontin. Patient is afebrile, heart rate is 67, blood pressure is 171/94. 97% on room air. Patient was admitted with concern for sepsis and possible abscess at incision site. Does present with some mild luekocytosis and lactic acidosis. Th ere is some areas of inflammation erythema noted and is tender to palpation. Patient was started on empiric antibiotic coverage IV vancomycin and infectious disease was consulted. Patient's surgeon Dr. Sparks was also consulted. He is scheduled to undergo incision and drainage of anterior neck wound with cultures tomorrow morning. Home medications will be resumed. REVIEW OF SYSTEMS: CONSTITUTIONAL: Reports fever and chills, no malaise, no fatigue. HEENT: No recent visual problems or hearing problems. Denied any sore throat. Reports some dysarthria and foul tasting mouth CARDIOVASCULAR: No chest pain, orthopnea, PND, no palpitations, no syncope. PULMONARY: No shortness of breath, brown tinged sputum, no hemoptysis. GASTROINTESTINAL: No diarrhea, no nausea, no vomiting, no abdominal pain. NEUROLOGICAL: No headaches, no weakness, no numbness. HEMATOLOGICAL: Denies any bleeding or petechiae. GENITOURINARY: Denies any burning micturition, frequency, or urgency. MUSCULOSKELETAL/RHEUMATOLOGICAL: Denies any joint pain, swelling, or any muscle pain. ENDOCRINE: Denies any polyuria or polydipsia. The rest of the 14-point review of systems is negative. PHYSICAL EXAMINATION: GENERAL: The patient is alert and oriented x3, not in any acute distress. Well developed, well nourished. HEENT: Pupils are round and equally reacting to light. EOMI. No scleral icterus. No conjunctival pallor. Normocephalic, atraumatic. No pharyngeal erythema. No thyromegaly. CARDIOVASCULAR: S1 and S2 present. No murmurs, rubs, or gallops. PULMONARY: Chest is clear to auscultation, no wheezing or crackles. ABDOMEN: Soft, nontender, nondistended, normoactive bowel sounds. No palpable or ganomegaly. MUSCULOSKELETAL: No joint swelling or deformity. EXTREMITIES: No cyanosis, clubbing, or pedal edema. NEUROLOGICAL: Gross neurological examination did not reveal any focal deficits. SKIN: No rashes. Has an a right anterior neck incision with approximated edges. Slightly swollen and red upper corn. There is a smaller incision underneath that is swollen and red. Assessment and plan Assessment Fever and chills with concern for sepsis secondary to incisional site infection patient started on empiric antibiotic coverage and infectious diseases consult. Blood cultures are currently pending. Patient is also present with acidosis at 2.6 which is presently 2.0 after IV fluid resuscitation. Recent ACDF C4 through C7 for cervical spondylosis with stenosis COPD with mild acute exacerbation Lactic acidosis Hypertension History diverticulitis with bowel resection Former history of alcohol use Occasional TCH use Chronic nicotine dependence GI prophylaxis DVT prophylaxis Plan: Plan Patient will be resumed on appropriate home medications Continue with pain management Continue with empiric antibiotic coverage pending cultures Patient scheduled for tentative incision and drainage of deep tissue cultures of anterior neck wound tomorrow. Infectious disease consultation Orthopedics consultation The impression and plan of care has been dictated by Irma Hu, Nurse Practitioner as directed. Dr. Cassius MD I have performed a history and physical examination and medical decision making of this patient, discussed the same with the dictator, and agree with the dictators assessment and plan as written, documented as a scribe. Based on total visit time, I have performed more than 50% of this visit. Past Medical History Past Medical History: COPD, Hypertension, Osteoarthritis (OA), Pneumonia Additional Past Medical History / Comment(s): Hx ETOH abuse(no alcohol since 05/15/21), past withdrawal per pt with shaking/nausea and diarrhea, pancreatitis, diverticulitis, chronic cervical/back pain/DDD and cervical spondylosis, bronchitis. History of Any Multi-Drug Resistant Organisms: C-DIFF Date of last positivie culture/infection: 2005 MDRO Source:: stool Past Surgical History: Bowel Resection Additional Past Surgical History / Comment(s): Bowel resection with 10 inches removed d/t diverticulitis, colonoscopy, benign lump removed from scrotum, bilateral rotator cuff repair, pain clinic procedures. Past Anesthesia/Blood Transfusion Reactions: No Reported Reaction Past Psychological History: Anxiety, Bipolar, Depression Smoking Status: Current every day smoker Past Alcohol Use History: Abuse, Daily, Heavy Past Drug Use History: Marijuana - Past Family History Father Family Medical History: Congestive Heart Failure (CHF) Additional Family Medical History / Comment(s): Father was healthy. Mother Family Medical History: Congestive Heart Failure (CHF) Medications and Allergies Home Medications Medication Instructions Recorded Confirmed Type HYDROcodone/APAP 7.5-325MG [[place] 1 tab PO TID PRN 12/17/19 12/18/21 History 7.5-325] Aspirin 81 mg PO DAILY 05/24/21 12/18/21 Rx Metoprolol Tartrate [Lopressor] 25 mg PO BID 30 Days tab 05/24/21 12/18/21 Rx Mirtazapine [Remeron] 15 mg PO HS 30 Days tab 05/24/21 12/18/21 Rx allopurinoL 100 mg PO DAILY 11/06/21 12/18/21 History tiZANidine [Zanaflex] 4 mg PO TID 11/06/21 12/18/21 History Albuterol Inhaler [Ventolin Hfa 2 puff INHALATION RT-QID 12/08/21 12/18/21 History Inhaler] Gabapentin 600 mg PO TID 12/08/21 12/18/21 History Losartan [Cozaar] 50 mg PO QAM 12/08/21 12/18/21 History Sertraline [Zoloft] 100 mg PO QAM 12/08/21 12/18/21 History Cyclobenzaprine [Flexeril] 5 mg PO TID #90 tablet 12/13/21 12/18/21 Rx Gabapentin [Neurontin] 300 mg PO TID #90 cap 12/13/21 12/18/21 Rx Sennosides/Docusate Sodium [[place]enna 1 each PO DAILY PRN #20 capsule 12/13/21 12/18/21 Rx Plus 8.6-50 mg Softgel] cefaDROXiL [Duricef] 500 mg PO Q12HR 3 Days #6 cap 12/13/21 12/18/21 Rx oxyCODONE HCL/ACETAMINOPHEN 1 tab PO Q4HR PRN #56 tab 12/13/21 12/18/21 Rx [Percocet 5-325 mg] Rosuvastatin [Crestor] 10 mg PO DAILY 12/18/21 12/18/21 History Terbinafine [LamISIL] 250 mg PO DAILY 12/18/21 12/18/21 History Allergies Allergy/AdvReac Type Severity Reaction Status Date / Time clonidine [From Catapres] AdvReac Vomiting Verified 12/18/21 12:06 Physical Exam Vitals: Vital Signs Temp Pulse Pulse Resp BP BP Pulse Ox 12/18/21 11:27 97.8 F 67 17 171/94 97 12/18/21 04:30 97.8 F 78 18 133/68 95 12/18/21 00:19 97.5 F L 77 16 136/77 97 12/17/21 23:42 98.6 F 12/17/21 23:41 89 17 100/59 94 L 12/17/21 19:31 98.3 F 128 H 20 132/77 96 Intake and Output 12/17/21 12/18/21 12/18/21 22:59 06:59 14:59 Intake Total 590 Balance 590 Intake: Oral 590 Other: Voiding Method Toilet # Voids 2 Weight 88.451 kg 88.451 kg Results CBC & Chem 7: 12/18/21 06:05 12/18/21 06:05 Labs: Abnormal Lab Results - Last 24 Hours (Table) 12/17/21 12/17/21 12/17/21 Range/Units 20:17 20:17 20:17 WBC 10.9 H (3.8-10.6) k/uL RBC (4.30-5.90) m/uL ESR (0-15) mm/hr Chloride (98-107) mmol/L Carbon Dioxide 20 L (22-30) mmol/L Glucose 110 H (74-99) mg/dL Plasma Lactic Acid David 2.6 H* (0.7-2.0) mmol/L Calcium (8.4-10.2) mg/dL Total Protein (6.3-8.2) g/dL Albumin (3.5-5.0) g/dL 12/18/21 12/18/21 Range/Units 06:05 06:05 WBC (3.8-10.6) k/uL RBC 4.20 L (4.30-5.90) m/uL ESR 30 H (0-15) mm/hr Chloride 108 H (98-107) mmol/L Carbon Dioxide (22-30) mmol/L Glucose (74-99) mg/dL Plasma Lactic Acid David (0.7-2.0) mmol/L Calcium 7.9 L (8.4-10.2) mg/dL Total Protein 5.6 L (6.3-8.2) g/dL Albumin 3.2 L (3.5-5.0) g/dL Thrombosis Risk Factor Assmnt - Choose All That Apply Any of the Below Risk Factors Present?: Yes Each Factor Represents 1 point: Abnormal pulmonary function (COPD), Age 41-60 years Each Risk Factor Represents 2 Points: Major surgery Other congenital or acquired thrombophilia - If yes, enter type in comment: No Thrombosis Risk Factor Assessment Total Risk Factor Score: 4 Thrombosis Risk Factor Assessment Level: Moderate Risk Assessment and Plan Time with Patient: Less than 30
[2021-12-18] MEDS: LOSARTAN 50 MG TAB PO SCH (13:52)
[2021-12-18] MEDS: NICOTINE 21MG/24HR PATCH TRANSDERM SCH (13:53)
[2021-12-18] MEDS: METOPROLOL TARTRATE 25 MG TAB PO SCH ×2 (13:53→20:18)
[2021-12-18] MEDS: ALBUTEROL NEBULIZED 2.5 MG/3 ML INHALATION SCH ×2 (15:37→19:26)
[2021-12-18] MEDS: GABAPENTIN 300 MG CAP PO SCH ×2 (15:54→22:08)
[2021-12-18] MEDS: PANTOPRAZOLE 40 MG TABLET PO SCH (17:36)
[2021-12-18] MEDS ORDERED: ALBUTEROL NEBULIZED 2.5 MG/3 ML INHALATION PRN (19:28)
[2021-12-18] MEDS: MIRTAZAPINE 15 MG TAB PO SCH (23:22)
[2021-12-19] MEDS: KETOROLAC 15 MG/ML 1 ML VIAL IVP SCH ×5 (00:33→23:59)
[2021-12-19] MEDS: SODIUM CHLORIDE 0.9% 1,000 ML IV SCH (02:21)
[2021-12-19] MEDS: HYDROmorphone 1 MG/ML 1 ML SYRINGE IVP PRN ×7 (02:21→21:30)
--- NOTE | 2021-12-19 07:41 | P.CONS ---
History of Present Illness - Reason for Consult Consult date: 12/18/21 - History of Present Illness Patient is a 56-year-old male in this patient who is status post C4-7 anterior decompression, history of COPD hypertension osteoarthritis anxiety bipolar depression, presenting to the ER for increasing pain redness swelling around the right anterior neck area the site of his cervical spine incision patient symptoms started on Saturday that is 3 days before presentation to the hospital patient denies any history of any trauma has been complaining of increasing swelling redness and sensation of fullness pain intensity is about 7- 8 out of 10 no radiation has been taking Percocet without any relief denies any high-grade fever or chills with the symptoms the patient was evaluated by the ER physician on arrival to the ER the patient was afebrile patient did have a white count of 10.9 kidney function has been normal lactic acid was elevated liver enzymes were normal blood cultures obtained which are currently pending patient did have a CT of the soft tissue of the neck irregular fluid extending from the prevertebral soft tissue to the anterior neck to the right side with a question of seroma hematoma or abscess patient was empirically started on vancomycin infectious disease was consulted for further management patient been evaluated by spine surgery planning for debridement of the area in the morning and deep cultures Past Medical History Past Medical History: COPD, Hypertension, Osteoarthritis (OA), Pneumonia Additional Past Medical History / Comment(s): Hx ETOH abuse(no alcohol since 05/15/21), past withdrawal per pt with shaking/nausea and diarrhea, pancreatitis, diverticulitis, chronic cervical/back pain/DDD and cervical spondylosis, bronchitis. History of Any Multi-Drug Resistant Organisms: C-DIFF Year Discovered:: 2005 MDRO Source:: stool Past Surgical History: Bowel Resection Additional Past Surgical History / Comment(s): Bowel resection with 10 inches removed d/t diverticulitis, colonoscopy, benign lump removed from scrotum, bilateral rotator cuff repair, pain clinic procedures. Past Anesthesia/Blood Transfusion Reactions: No Reported Reaction Past Psychological History: Anxiety, Bipolar, Depression Smoking Status: Current every day smoker Past Alcohol Use History: Abuse, Daily, Heavy Past Drug Use History: Marijuana - Past Family History Father Family Medical History: Congestive Heart Failure (CHF) Additional Family Medical History / Comment(s): Father was healthy. Mother Family Medical History: Congestive Heart Failure (CHF) Medications and Allergies Home Medications Medication Instructions Recorded Confirmed Type HYDROcodone/APAP 7.5-325MG [[place] 1 tab PO TID PRN 12/17/19 12/18/21 History 7.5-325] Aspirin 81 mg PO DAILY 05/24/21 12/18/21 Rx Metoprolol Tartrate [Lopressor] 25 mg PO BID 30 Days tab 05/24/21 12/18/21 Rx Mirtazapine [Remeron] 15 mg PO HS 30 Days tab 05/24/21 12/18/21 Rx allopurinoL 100 mg PO DAILY 11/06/21 12/18/21 History tiZANidine [Zanaflex] 4 mg PO TID 11/06/21 12/18/21 History Albuterol Inhaler [Ventolin Hfa 2 puff INHALATION RT-QID 12/08/21 12/18/21 History Inhaler] Gabapentin 600 mg PO TID 12/08/21 12/18/21 History Losartan [Cozaar] 50 mg PO QAM 12/08/21 12/18/21 History Sertraline [Zoloft] 100 mg PO QAM 12/08/21 12/18/21 History Cyclobenzaprine [Flexeril] 5 mg PO TID #90 tablet 12/13/21 12/18/21 Rx Gabapentin [Neurontin] 300 mg PO TID #90 cap 12/13/21 12/18/21 Rx Sennosides/Docusate Sodium [[place] 1 each PO DAILY PRN #20 capsule 12/13/21 12/18/21 Rx Plus 8.6-50 mg Softgel] cefaDROXiL [Duricef] 500 mg PO Q12HR 3 Days #6 cap 12/13/21 12/18/21 Rx oxyCODONE HCL/ACETAMINOPHEN 1 tab PO Q4HR PRN #56 tab 12/13/21 12/18/21 Rx [Percocet 5-325 mg] Rosuvastatin [Crestor] 10 mg PO DAILY 12/18/21 12/18/21 History Terbinafine [LamISIL] 250 mg PO DAILY 12/18/21 12/18/21 History Allergies Allergy/AdvReac Type Severity Reaction Status Date / Time clonidine [From Catapres] AdvReac Vomiting Verified 12/18/21 12:06 Physical Exam Vitals: Vital Signs Temp Pulse Pulse Resp BP BP Pulse Ox 12/18/21 04:30 97.8 F 78 18 133/68 95 12/18/21 00:19 97.5 F L 77 16 136/77 97 12/17/21 23:42 98.6 F 12/17/21 23:41 89 17 100/59 94 L 12/17/21 19:31 98.3 F 128 H 20 132/77 96 Intake and Output 12/17/21 12/18/21 12/18/21 22:59 06:59 14:59 Intake Total 590 Balance 590 Intake: Oral 590 Other: Voiding Method Toilet # Voids 2 Weight 88.451 kg 88.451 kg Results CBC & Chem 7: 12/18/21 06:05 12/18/21 06:05 Labs: Abnormal Lab Results - Last 24 Hours (Table) 12/17/21 12/17/21 12/17/21 Range/Units 20:17 20:17 20:17 WBC 10.9 H (3.8-10.6) k/uL RBC (4.30-5.90) m/uL Chloride (98-107) mmol/L Carbon Dioxide 20 L (22-30) mmol/L Glucose 110 H (74-99) mg/dL Plasma Lactic Acid David 2.6 H* (0.7-2.0) mmol/L Calcium (8.4-10.2) mg/dL Total Protein (6.3-8.2) g/dL Albumin (3.5-5.0) g/dL 12/18/21 12/18/21 Range/Units 06:05 06:05 WBC (3.8-10.6) k/uL RBC 4.20 L (4.30-5.90) m/uL Chloride 108 H (98-107) mmol/L Carbon Dioxide (22-30) mmol/L Glucose (74-99) mg/dL Plasma Lactic Acid David (0.7-2.0) mmol/L Calcium 7.9 L (8.4-10.2) mg/dL Total Protein 5.6 L (6.3-8.2) g/dL Albumin 3.2 L (3.5-5.0) g/dL Assessment and Plan Plan: 1patient with recent cervical decompression surgery now presenting to the hospital with increasing swelling redness to the anterior neck incision with abnormal CT concerning for a fluid collection and a question of postoperative seroma versus developing abscess. 2await surgical drainage and deep cultures. 3vancomycin pharmacy to dose target trough of 15 while watching kidney function and vancomycin trough closely. We will follow on clinical condition and cultures to further adjust medication if needed Thank you for this consultation will follow this patient along with you Time with Patient: Greater than 30
[2021-12-19] MEDS ORDERED: GENTAMICIN 40 MG/ML 2 ML VIAL ONE (08:00)
[2021-12-19] MEDS ORDERED: VANCOMYCIN TROUGH DUE 1 EACH MISC MISCELLANE ONE (08:00)
[2021-12-19] MEDS ORDERED: SODIUM CHLORIDE 0.9% IRRIG 3,000 ML BAG IRRIGATION ONE (08:00)
[2021-12-19] MEDS: NICOTINE 21MG/24HR PATCH TRANSDERM SCH (08:31)
[2021-12-19] MEDS: allopurinoL 100 MG TAB PO SCH (08:32)
[2021-12-19] MEDS: SERTRALINE 100 MG TAB PO SCH (08:32)
[2021-12-19] MEDS: LOSARTAN 50 MG TAB PO SCH ×2 (08:33→21:28)
[2021-12-19] MEDS: VANCOMYCIN 1,500 MG in SODIUM CHLORIDE 0.9% 500 ML 500 ML IVPB SCH ×2 (08:34→21:28)
[2021-12-19] MEDS: ATORVASTATIN 20 MG TAB PO SCH (08:35)
[2021-12-19] MEDS: PANTOPRAZOLE 40 MG TABLET PO SCH ×2 (08:35→16:04)
[2021-12-19] MEDS: METOPROLOL TARTRATE 25 MG TAB PO SCH ×2 (08:36→21:27)
[2021-12-19] MEDS: GABAPENTIN 300 MG CAP PO SCH ×3 (08:37→21:27)
[2021-12-19 08:40] LABS: African American GFR (CKD) >90 (>60 ml/min/1.73 sqM); Anion Gap 5 mmol/L; Blood Urea Nitrogen 7 mg/dL (9-20); Calcium 8.4 mg/dL (8.4-10.2); Carbon Dioxide 29 mmol/L (22-30); Chloride 105 mmol/L (98-107); Glucose 97 mg/dL (74-99); Non-African American GFR(CKD) >90 (>60 ml/min/1.73 sqM); Potassium 4.1 mmol/L (3.5-5.1); Sodium 139 mmol/L (137-145)
[2021-12-19] MEDS ORDERED: SODIUM CHLORIDE 0.9% 1,000 ML IV SCH (09:45)
--- NOTE | 2021-12-19 11:31 | P.PN ---
Progress Note - Text Progress Note Date: 12/19/21 Pt s/e this AM. He is doing OK. Still having swelling and redness about the anterior neck with a hard area under the skin. He states no F/C overnight. We discussed different options and has elected for surgical management with washout, cultures and closure. We discussed risks and benefits of the procedure including but not limited to risk of bleeding, infection, damage to surrounding tissue, nerve damage, continued symptoms, need for more surgery, hardware removal, risk of anesthesia up to and including . He understood these risks and was willing to assume the risk of surgery. We will take him later today for washout of anterior neck.
--- NOTE | 2021-12-19 14:42 | P.PN ---
Subjective Progress Note Date: 12/19/21 This is a 56-year-old male presents to hospital with concern for pain and redness at his cervical incisional site that began on Saturday. Patient also reports fever and chills. He does have some nausea. Since surgery he has reported some difficulty swallowing and also reports a funny taste in his mouth. No vomiting or diarrhea noted. He denies any chest pain or shortness of breath. He does report a cough with brown tinged sputum noted the patient is a half pack per day smoker which he continues. Patient underwent successful C4-C7 ACDF while in the hospital for a diagnosis of cervical spondylosis with stenosis. He was discharged on 12/13 and sent on antibiotics for 3 days as well as pain management with Percocet 5mg every 4 hours, Flexeril and Neurontin. Patient is afebrile, heart rate is 67, blood pressure is 171/94. 97% on room air. Patient was admitted with concern for sepsis and possible abscess at incision site. Does present with some mild luekocytosis and lactic acidosis. There is some areas of inflammation erythema noted and is tender to palpation. Patient was started on empiric antibiotic coverage IV vancomycin and infectious disease was consulted. Patient's surgeon Dr. Sparks was also consulted. He is scheduled to undergo incision and drainage of anterior neck wound with cultures tomorrow morning. Home medications will be resumed. 12/19/2021 Patient is monitored today on medical floor. He is scheduled to undergo surgical washout of the anterior neck incisional wound. No acute events overnight. Overall pain has improved some. Sodium level today is 139, potassium 4.1, BUN 7, creatinine 0.78. Blood cultures are negative so far and he continues on IV vancomycin. Infectious disease is following the patient. Patient is afebrile, blood pressure 173/94. Fluids will be stopped. PHYSICAL EXAMINATION: GENERAL: The patient is alert and oriented x3, not in any acute distress. Well developed, well nourished. HEENT: Pupils are round and equally reacting to light. EOMI. No scleral icterus. No conjunctival pallor. Normocephalic, atraumatic. No pharyngeal erythema. No thyromegaly. CARDIOVASCULAR: S1 and S2 present. No murmurs, rubs, or gallops. PULMONARY: Chest is clear to auscultation, no wheezing or crackles. ABDOMEN: Soft, nontender, nondistended, normoactive bowel sounds. No palpable organomegaly. MUSCULOSKELETAL: No joint swelling or deformity. EXTREMITIES: No cyanosis, clubbing, or pedal edema. NEUROLOGICAL: Gross neurological examination did not reveal any focal deficits. SKIN: No rashes. Has an a right anterior neck incision with approximated edges. Slightly swollen and red upper corn. There is a smaller incision underneath that is swollen and red. Assessment and plan Assessment Fever and chills with concern for sepsis secondary to incisional site infection patient started on empiric antibiotic coverage and infectious diseases consult. Blood cultures are currently pending. Recent ACDF C4 through C7 for cervical spondylosis with stenosis COPD with mild acute exacerbation, no wheezing noted today Lactic acidosis, resolved Hypertension History diverticulitis with bowel resection Former history of alcohol use Occasional TCH use Chronic nicotine dependence GI prophylaxis DVT prophylaxis Plan: Plan Continue with pain management Continue with empiric antibiotic coverage pending cultures Patient scheduled for washout of anterior neck wound later today. Infectious disease consultation Losartan increased The impression and plan of care has been dictated by Irma Hu Nurse Practitioner as directed. Dr. Cassius MD I have performed a history and physical examination and medical decision making of this patient, discussed the same with the dictator, and agree with the dic tators assessment and plan as written, documented as a scribe. Based on total visit time, I have performed more than 50% of this visit. Objective - Vital Signs Vital signs: Vital Signs Temp 97.7 F 12/19/21 08:20 Pulse 61 12/19/21 08:20 Resp 12 12/19/21 08:20 BP 162/90 12/19/21 04:00 Pulse Ox 99 12/19/21 08:20 FiO2 Intake & Output 12/18/21 12/19/21 12/19/21 18:59 06:59 18:59 Intake Total 1400 0 Balance 1400 0 Intake: Intake, IV Titration 1400 Amount Sodium Chloride 0.9% 1, 900 000 ml @ 75 mls/hr IV . [id number] [facility] Rx#:[id number] Vancomycin 1,500 mg In 500 Sodium Chloride 0.9% 500 ml 500 ml @ 167 mls/hr IVPB Q12HR [facility] Rx#: [id number] Oral 0 Other: Voiding Method Toilet # Voids 3 - Labs CBC & Chem 7: 12/18/21 06:05 12/19/21 07:46 Labs: Abnormal Lab Results - Last 24 Hours (Table) 12/18/21 12/18/21 12/19/21 Range/Units 06:05 06:05 07:46 ESR 30 H (0-15) mm/hr BUN 7 L (9-20) mg/dL C-Reactive Protein 2.20 H (0.00-0.80) mg/dL Microbiology - Last 24 Hours (Table) 12/17/21 20:17 Blood Culture - Preliminary Blood No Growth after 24 hours 12/17/21 20:00 Blood Culture - Preliminary Blood No Growth after 24 hours Assessment and Plan Time with Patient: Less than 30
[2021-12-19] MEDS ORDERED: MIDAZOLAM 2 MG/2 ML VIAL IVP ONE (18:55)
[2021-12-19] MEDS ORDERED: LIDOCAINE 2% INJ 20 MG/ML (2 ML VIAL) ONE (19:38)
[2021-12-19] MEDS ORDERED: MIDAZOLAM 2 MG/2 ML VIAL ONE (19:38)
[2021-12-19] MEDS ORDERED: fentaNYL (PF) 50 MCG/ML 2 ML AMP ONE (19:38)
[2021-12-19] MEDS ORDERED: PROPOFOL 10 MG/ML 20 ML VIAL IV ONE (19:38)
[2021-12-19] MEDS ORDERED: SUCCINYLCHOLINE CHLORIDE 200 MG/10 ML VIAL IV ONE (19:38)
[2021-12-19] MEDS ORDERED: LACTATED RINGERS 1,000 ML IV ONE ×2 (19:40→20:40)
[2021-12-19] MEDS ORDERED: GENTAMICIN 80 MG in SODIUM CHLORIDE 0.9% 500 ML 3,000 ML IRRIGATION ONE (20:24)
[2021-12-19] MEDS ORDERED: ceFAZolin 3,000 MG in SODIUM CHLORIDE 0.9% IRRIGATIO 3,000 ML IRRIGATION ONE (20:24)
[2021-12-19] MEDS ORDERED: HYDROmorphone 0.5 MG/0.5 ML SYRINGE IVP PRN ×2 (20:43→22:49)
[2021-12-19] MEDS ORDERED: HYDROcodone/APAP 5-325MG 1 EACH TAB PO PRN (20:43)
--- NOTE | 2021-12-19 20:47 | P.PN ---
Progress Note - Text Progress Note Date: 12/19/21 Postop: . Patient seen and examined they are doing well. Their pain is under control at this time. They are moving all 4 extremities without any issues. Vital signs are stable.. They are currently recovering and will be transferred to the floor once deemed stable by the PACU team and anesthesiologist. No Other issues at this time they deny fever chills shortness of breath or chest pain. [C collar in place, well fitting] continue IV antibiotics [Continue with intravenous fluids, pain medication, muscle relaxers, home medication] [Soft diet to start to advance as tolerated] We will evaluate the patient in the morning.
[2021-12-19] MEDS ORDERED: HYDROmorphone 0.5 MG/0.5 ML SYRINGE IVP ONE (20:49)
[2021-12-19] MEDS: MIRTAZAPINE 15 MG TAB PO SCH (21:27)
[2021-12-19] MEDS ORDERED: ONDANSETRON 4 MG/2 ML VIAL IVP ONE ×2 (22:49)
[2021-12-19] MEDS ORDERED: LIDOCAINE 1% (10MG/ML) FOR IV START INTRADERMA PRN (22:49)
[2021-12-20] MEDS: HYDROmorphone 1 MG/ML 1 ML SYRINGE IVP PRN ×7 (00:11→20:48)
[2021-12-20] MEDS: LACTATED RINGERS 1,000 ML IV SCH ×2 (02:58→20:56)
[2021-12-20] MEDS: KETOROLAC 15 MG/ML 1 ML VIAL IVP SCH ×3 (05:27→17:54)
--- NOTE | 2021-12-20 08:26 | P.PN ---
Subjective Progress Note Date: 12/20/21 patient seen and examined no issues overnight pain is controlled drain is in place. He denies any issues currently is resting comfortably. Objective - Vital Signs Vital signs: Vital Signs Temp 98.3 F 12/20/21 04:17 Pulse 58 L 12/20/21 04:17 Resp 16 12/20/21 04:17 BP 154/84 12/20/21 04:17 Pulse Ox 99 12/20/21 04:17 FiO2 Intake & Output 12/19/21 12/20/21 12/20/21 18:59 06:59 18:59 Intake Total 700 1024 Output Total 545 Balance 700 479 Intake: IV 802 Intake, IV Titration 700 Amount Sodium Chloride 0.9% 1, 200 000 ml @ 50 mls/hr IV . Q20H [facility] Rx#:[id number] Vancomycin 1,500 mg In 500 Sodium Chloride 0.9% 500 ml 500 ml @ 167 mls/hr IVPB Q12HR [facility] Rx#: [id number] Oral 222 Output: Drainage 5 Right Neck 5 Urine 500 Estimated Blood Loss 40 Other: Voiding Method Toilet # Voids 1 - Exam Physical Exam: -Patient is alert and oriented 3 appears well-nourished well-hydrated is in no acute distress. They do not appear septic. -There is TTP about the anterior neck [-Incision is CDI, no EEE, no drainage] -Upper extremities show [5] out of 5 strength in all major muscle groups. [##EXCEPT] -Lower extremities with [5] out of 5 strength in all major muscle groups [##EXCEPT] -There is [FROM] that is [painless] of the b/l UE and LE in all major joints. [log roll] [SLR] [EXCEPT] -They are intact to light touch sensation in C5 to T1 and L2 to S1 nerve distribution. -DTR [2]/4 all upper and lower extremities -Patient has palpable distal pulses all 4 ext -Compartments are soft and compressible. -Patient shows a negative Moy's [-Neg Hoffmans b/l] [-Neg Clonus b/l] [-Neg babinski b/l] Cranial nerves II through XII are grossly intact. drain is in place 20 mL - Labs CBC & Chem 7: 12/18/21 06:05 12/19/21 07:46 Labs: Abnormal Lab Results - Last 24 Hours (Table) 12/19/21 Range/Units 07:46 BUN 7 L (9-20) mg/dL Microbiology - Last 24 Hours (Table) 12/19/21 20:20 Gram Stain - Preliminary Neck Wound Culture - Preliminary 12/19/21 20:21 Gram Stain - Preliminary Neck Wound Culture - Preliminary 12/19/21 20:22 Anaerobic Culture - Preliminary Neck 12/19/21 20:22 Tissue Culture - Preliminary Neck 12/19/21 20:20 Anaerobic Culture - Preliminary Neck 12/19/21 20:21 Anaerobic Culture - Preliminary Neck 12/17/21 20:17 Blood Culture - Preliminary Blood No Growth after 48 hours 12/17/21 20:00 Blood Culture - Preliminary Blood No Growth after 48 hours Assessment and Plan Assessment: 56-year-old male postop day 1 anterior neck washout 1. Postoperative pain 2. Possible developing abscess anterior neck wound Plan: -Appreciate rural health consultant and team management. -Activity: Ambulate QID, OOB all meals, up and about, limit lifting bending twisting to less than 5 lbs. Use walker or cane if needed for stability. -Daily PT/OT, increase ambulation strength and balance. -[Brace when up and about, not needed in bed or chair] -Pain control: [Adequate at this time] -Meds: [reviewed] -GI ppx: senna, Miralax -DVT PPX: [OK to restart Heparin tonight] -Hygiene: Shower today. Maintain dressing clean and dry. Meticulous cleaning after BMs away from incision site -Drains: [Maintain for now. Record output] -Encourage IS 10x/hr -await cultures - continue antibiotics per ID -Dispo: [Pending]
[2021-12-20] MEDS: NICOTINE 21MG/24HR PATCH TRANSDERM SCH (09:17)
[2021-12-20] MEDS: METOPROLOL TARTRATE 25 MG TAB PO SCH (09:17)
[2021-12-20] MEDS: allopurinoL 100 MG TAB PO SCH (09:17)
[2021-12-20 09:18] LABS: Basophils # (A) 0.06 X 10*3/uL (0.00-0.10); Basophils % (A) 0.8 %; Eosinophils # (A) 0.33 X 10*3/uL (0.04-0.35); Eosinophils % (A) 4.5 %; HCT 38.5 % (39.6-50.0); HGB 12.5 g/dL (13.0-17.0); Immature Grans, Automated 0.3 %; Lymphocytes # (A) 1.98 X 10*3/uL (0.90-5.00); Lymphocytes % (A) 26.8 %; MCH 31.7 pg (27.0-32.0); MCHC 32.5 g/dL (32.0-37.0); MCV 97.7 fL (80.0-97.0); Mean Platelet Volume 9.8 fL (9.5-12.2); Monocytes # (A) 0.74 X 10*3/uL (0.20-1.00); NRBC Per 100 WBC 0 /100 WBCS (0.0-0.0); Neutrophils # (A) 4.26 X 10*3/uL (1.80-7.70); Neutrophils % (A) 57.6 %; Platelet Count 285 X 10*3/uL (140-440); RBC 3.94 X 10*6/uL (4.40-5.60); RDW 12.2 % (11.5-14.5); WBC 7.39 X 10*3/uL (4.50-10.00)
[2021-12-20] MEDS: SERTRALINE 100 MG TAB PO SCH (09:18)
[2021-12-20] MEDS: LOSARTAN 50 MG TAB PO SCH ×2 (09:18→20:47)
[2021-12-20] MEDS: PANTOPRAZOLE 40 MG TABLET PO SCH ×2 (09:18→17:00)
[2021-12-20] MEDS: GABAPENTIN 300 MG CAP PO SCH ×3 (09:18→20:59)
[2021-12-20] MEDS: VANCOMYCIN 1,500 MG in SODIUM CHLORIDE 0.9% 500 ML 500 ML IVPB SCH ×2 (09:18→20:48)
[2021-12-20] MEDS: ATORVASTATIN 20 MG TAB PO SCH (09:18)
--- NOTE | 2021-12-20 09:22 | P.OP ---
Date of Procedure: 12/19/21 Preoperative Diagnosis: 1. Wound dehiscence anterior neck 2. Fluid collection, seroma 3. Possible infection Postoperative Diagnosis: 1. Wound dehiscence anterior neck 2. Fluid collection, seroma 3. Superficial hematoma Procedure(s) Performed: 1. incision and drainage with irrigation and debridement skin and subcu every tissue muscle and bone anterior neck 4 cm x 5 cm x 2 cmusing the following - skin knife used to incise previous incision remove old skin and freshen edges -curet used to scrape bone and muscle - irrigated with 3 L of Ancef irrigation, 3 L of gentamicin irrigation, 3 L of normal sterile saline Implants: investigated globus MIS anterior cervical system no issues Anesthesia: ANDREW Surgeon: Dallin Sparks Peripheral Equipment Operator #1: Colton Alicia Estimated Blood Loss (ml): 25 IV fluids (ml): 500 Urine output (ml): 0 Pathology: other (2 cultures anterior neck) Condition: stable Disposition: PACU Indications for Procedure: 56-year-old male who 1 week prior had a C4 through 7 ACDF performed. He presented to emergency department with increased erythema pain swelling around the anterior incision. Patient was discharged from the hospital for appropriate follow-up information and instructions. He will return to the ER with increasing erythema pain and swelling to the area. No drainage. He states no difficulty with swallowing. He states no fevers or chills at this time. Upon evaluation he does have increased erythema and what appears or feels to be a fluctuant mass deep to this within the incision. There is no drainage from the incision was very erythematous. He was started on antibiotics from the emergency department. We discussed different options and I discussed with him incision and drainage with irrigation and debridement as the computed tomography scan does show some postop fluid collection in this area and he agreed. We discussed the risk and benefits of the procedure as outlined in the risk review. He is willing to proceed with the procedure. Description of Procedure: The patient was seen and examined in the preoperative area. All preoperative protocols were followed. Informed consent was obtained risks and benefits of the procedure were discussed at length. Risks including bleeding infection damage to the surrounding tissue and risk of reoperation were discussed with the patient. Risk of anesthesia up to and including was a discussed with the patient. These are outlined in the risk review. They were willing to accept these risks and all of the risks of surgery. The patient was given a weight- based dose of antibiotics in the form of vancomycin from the floor as well as 2 g of Ancef preop. The patient was seen and evaluated by the anesthesia team who deemed them fit for surgery. The site was marked, the patient was willing to proceed with the procedure. The patient was transferred to the operative suite by the Department of anesthesia. They were then drifted off to sleep by the department anesthesia and [anesthesia type] was performed. The patient tolerated this well. . Once confirmation of lines and ventilation the patient was transferred to [facility] table very carefully a shoulder roll was placed shoulders were gently taped to the table and his head was placed on a gel foam. All bony prominences including wrists, elbows, axilla, chest, hips, and thighs, and feet were padded very well. Special attention was paid to the genitalia and these were padded accordingly. SCDs were placed on bilateral lower extremities and were connected. Arms were well padded and placed talk to his side thumbs up well-padded]. Once in position, again we confirmed good ventilation capabilities and that lines were running appropriately. The patient's anterior cervical spine was then exposed. 1010s were placed outlining the incision site. Standard alcohol was used to clean the incision site and allowed to dry. C-arm was used to biomark the patient and confirm level for incision which was marked with a skin marker. Operative briefing was performed with all teams and everyone in agreement to proceed. The patient was then prepped and draped in a normal sterile fashion. Timeout was then performed and all parties were in agreement with the procedure to be performed. skin incision was made over the previous incised area and skin edges freshened. Old sutures were removed. There is a hematoma that was deep to the skin in this area that was evacuated. The stitches for the platysmal closure with then snapped in 1 step to a fluid collection was removed from this area which was serous in nature. Blunt dissection was taken down with hand-held Cloward to the anterior cervical spine which appeared in good condition without any purulence in this area superficial and deep cultures were taken at this time. We then investigated and scraped the bone anterior cervical spine and there was no phlegmon. We then tested each of the cages and they were stable. We then scraped the surrounding soft tissue and muscle to remove any other issues. We then irrigated with 3 L of Ancef irrigation followed by 3 L of gentamicin irrigation followed with 3 L of normal sterile saline. The drain tract from previously was excised and a new drain was placed deep within the wound. We then closed the platysmal layer with 3-0 PDS in a simple fashion and loosely Close the subcu tissue with 3-0 PDS and the skin was closed with nylon stitches in a simple fashion. The wound edges approximated very well. The wound was then cleaned and dressed sterilely with a operative foam dressing drain sponge and Tegaderm. The patient was transferred back to their hospital bed atraumatically. [Drain continued to hold suction and were in good position]. Patient was then awakened and extubated by the department of anesthesia having tolerated the procedure very well with no complications. They were transferred to the postoperative care unit in stable condition.
[2021-12-20] MEDS: HYDROcodone/APAP 10-325MG 1 EACH TAB PO PRN ×2 (11:26→18:40)
--- NOTE | 2021-12-20 14:54 | P.PN ---
Subjective Progress Note Date: 12/20/21 This is a 56-year-old male presents to hospital with concern for pain and redness at his cervical incisional site that began on Saturday. Patient also reports fever and chills. He does have some nausea. Since surgery he has reported some difficulty swallowing and also reports a funny taste in his mouth. No vomiting or diarrhea noted. He denies any chest pain or shortness of breath. He does report a cough with brown tinged sputum noted the patient is a half pack per day smoker which he continues. Patient underwent successful C4-C7 ACDF while in the hospital for a diagnosis of cervical spondylosis with stenosis. He was discharged on 12/13 and sent on antibiotics for 3 days as well as pain management with Percocet 5mg every 4 hours, Flexeril and Neurontin. Patient is afebrile, heart rate is 67, blood pressure is 171/94. 97% on room air. Patient was admitted with concern for sepsis and possible abscess at incision site. Does present with some mild luekocytosis and lactic acidosis. There is some areas of inflammation erythema noted and is tender to palpation. Patient was started on empiric antibiotic coverage IV vancomycin and infectious disease was consulted. Patient's surgeon Dr. Sparks was also consulted. He is scheduled to undergo incision and drainage of anterior neck wound with cultures tomorrow morning. Home medications will be resumed. 12/19/2021 Patient is monitored today on medical floor. He is scheduled to undergo surgical washout of the anterior neck incisional wound. No acute events overnight. Overall pain has improved some. Sodium level today is 139, potassium 4.1, BUN 7, creatinine 0.78. Blood cultures are negative so far and he continues on IV vancomycin. Infectious disease is following the patient. Patient is afebrile, blood pressure 173/94. Fluids will be stopped. 12/20/2021 Patient is evaluated today he is postoperative day #1 for anterior neck washout with Dr. Sparks. He has EROS drain in place with serosanguineous drainage total output 5 mls overnight. Continues with IV vancomycin pending finalized cultures. White count 7.39, hgb stable at 12.5. Remains afebrile, heart rate 57, blood pressure 177/94. Will decrease metoprolol. PHYSICAL EXAMINATION: GENERAL: The patient is alert and oriented x3, not in any acute distress. Well d eveloped, well nourished. HEENT: Pupils are round and equally reacting to light. EOMI. No scleral icterus. No conjunctival pallor. Normocephalic, atraumatic. No pharyngeal erythema. No thyromegaly. CARDIOVASCULAR: S1 and S2 present. No murmurs, rubs, or gallops. PULMONARY: Chest is clear to auscultation, no wheezing or crackles. ABDOMEN: Soft, nontender, nondistended, normoactive bowel sounds. No palpable organomegaly. MUSCULOSKELETAL: No joint swelling or deformity. EXTREMITIES: No cyanosis, clubbing, or pedal edema. NEUROLOGICAL: Gross neurological examination did not reveal any focal deficits. SKIN: No rashes. Has an a right anterior neck incision with intact dressing and EROS drain in place. Serosanguineous drainage. Assessment and plan Assessment Fever and chills with concern for sepsis secondary to incisional site infection patient started on empiric antibiotic coverage and infectious diseases consult. Blood cultures are currently pending. Postoperative day #1 anterior neck washout Recent ACDF C4 through C7 for cervical spondylosis with stenosis COPD with mild acute exacerbation, no wheezing noted today Lactic acidosis, resolved Hypertension History diverticulitis with bowel resection Former history of alcohol use Occasional TCH use Chronic nicotine dependence GI prophylaxis DVT prophylaxis Plan: Plan Continue with pain management Continue with empiric antibiotic coverage pending cultures Infectious disease consultation Metoprolol decreased secondary to bradycardia Continue losartan BID, add amlodipine. Monitor blood pressure The impression and plan of care has been dictated by Irma Hu, Nurse Practitioner as directed. Dr. Cassius MD I have performed a history and physical examination and medical decision making of this patient, discussed the same with the dictator, and agree with the dictators assessment and plan as written, documented as a scribe. Based on total visit time, I have performed more than 50% of this visit. Objective - Vital Signs Vital signs: Vital Signs Temp 98.0 F 12/20/21 11:11 Pulse 57 L 12/20/21 11:11 Resp 18 12/20/21 11:11 BP 177/94 12/20/21 11:11 Pulse Ox 99 12/20/21 11:11 FiO2 Intake & Output 12/19/21 12/20/21 12/20/21 18:59 06:59 18:59 Intake Total 700 1024 Output Total 545 Balance 700 479 Intake: IV 802 Intake, IV Titration 700 Amount Sodium Chloride 0.9% 1, 200 000 ml @ 50 mls/hr IV . Q20H [facility] Rx#:[id number] Vancomycin 1,500 mg In 500 Sodium Chloride 0.9% 500 ml 500 ml @ 167 mls/hr IVPB Q12HR [facility] Rx#: [id number] Oral 222 Output: Drainage 5 Right Neck 5 Urine 500 Estimated Blood Loss 40 Other: Voiding Method Toilet Toilet # Voids 1 - Labs CBC & Chem 7: 12/20/21 05:30 12/19/21 07:46 Labs: Abnormal Lab Results - Last 24 Hours (Table) 12/20/21 Range/Units 05:30 RBC 3.94 L (4.40-5.60) X 10*6/uL Hgb 12.5 L (13.0-17.0) g/dL Hct 38.5 L (39.6-50.0) % MCV 97.7 H (80.0-97.0) fL Microbiology - Last 24 Hours (Table) 12/19/21 20:22 Gram Stain - Preliminary Neck Tissue Culture - Preliminary 12/19/21 20:20 Gram Stain - Preliminary Neck Wound Culture - Preliminary 12/19/21 20:21 Gram Stain - Preliminary Neck Wound Culture - Preliminary 12/19/21 20:22 Anaerobic Culture - Preliminary Neck 12/19/21 20:20 Anaerobic Culture - Preliminary Neck 12/19/21 20:21 Anaerobic Culture - Preliminary Neck 12/17/21 20:17 Blood Culture - Preliminary Blood No Growth after 48 hours 12/17/21 20:00 Blood Culture - Preliminary Blood No Growth after 48 hours Assessment and Plan Time with Patient: Less than 30
[2021-12-20] MEDS: amLODIPine 10 MG TAB PO SCH (15:44)
[2021-12-20] MEDS: METOPROLOL TARTRATE 12.5 MG TAB PO SCH (20:47)
[2021-12-20] MEDS: MIRTAZAPINE 15 MG TAB PO SCH (20:47)
[2021-12-21] MEDS: HYDROmorphone 1 MG/ML 1 ML SYRINGE IVP PRN ×5 (00:59→22:05)
[2021-12-21] MEDS: HYDROcodone/APAP 10-325MG 1 EACH TAB PO PRN ×3 (04:27→16:29)
[2021-12-21] MEDS: CYCLOBENZAPRINE 5 MG TAB PO PRN ×3 (04:28→21:07)
[2021-12-21] MEDS: amLODIPine 10 MG TAB PO SCH (04:28)
[2021-12-21] MEDS: LOSARTAN 50 MG TAB PO SCH ×2 (04:28→21:08)
[2021-12-21 07:01] LABS: African American GFR (CKD) >90 (>60 ml/min/1.73 sqM); Anion Gap 8 mmol/L; Blood Urea Nitrogen 11 mg/dL (9-20); Calcium 8.8 mg/dL (8.4-10.2); Carbon Dioxide 30 mmol/L (22-30); Chloride 100 mmol/L (98-107); Glucose 108 mg/dL (74-99); Non-African American GFR(CKD) >90 (>60 ml/min/1.73 sqM); Potassium 4.2 mmol/L (3.5-5.1); Sodium 138 mmol/L (137-145)
[2021-12-21] MEDS: VANCOMYCIN 1,500 MG in SODIUM CHLORIDE 0.9% 500 ML 500 ML IVPB SCH ×2 (08:19→21:16)
[2021-12-21] MEDS: NICOTINE 21MG/24HR PATCH TRANSDERM SCH (08:19)
[2021-12-21] MEDS: METOPROLOL TARTRATE 12.5 MG TAB PO SCH ×2 (08:20→21:07)
[2021-12-21] MEDS: ATORVASTATIN 20 MG TAB PO SCH (08:20)
[2021-12-21] MEDS: SERTRALINE 100 MG TAB PO SCH (08:20)
[2021-12-21] MEDS: allopurinoL 100 MG TAB PO SCH (08:20)
[2021-12-21] MEDS: GABAPENTIN 300 MG CAP PO SCH ×3 (08:20→21:07)
[2021-12-21] MEDS: PANTOPRAZOLE 40 MG TABLET PO SCH ×2 (08:20→17:18)
--- NOTE | 2021-12-21 08:24 | P.PN ---
Subjective Progress Note Date: 12/19/21 Principal diagnosis: Surgical site infection Patient is a 56-year-old male male who is status post C4 to 7 anterior decompression procedure a week prior to this admission to the hospital presenting with increasing swelling and redness to the anterior neck surgical site CT concerning for possible seroma versus infected hematoma. On today's evaluation that is 12/19/2021, the patient denies having any fever or any chills, syncopal no pain to the right anterior neck area swelling slightly decreased no drainage no chest pain shortness of breath or cough no abdominal pa in no diarrhea Objective - Vital Signs Vital signs: Vital Signs Temp 98.1 F 12/19/21 11:32 Pulse 60 12/19/21 11:32 Resp 18 12/19/21 11:32 BP 173/94 12/19/21 11:32 Pulse Ox 99 12/19/21 11:32 FiO2 Intake & Output 12/18/21 12/19/21 12/19/21 18:59 06:59 18:59 Intake Total 1400 0 Balance 1400 0 Intake: Intake, IV Titration 1400 Amount Sodium Chloride 0.9% 1, 900 000 ml @ 75 mls/hr IV . [id number] [facility] Rx#:[id number] Vancomycin 1,500 mg In 500 Sodium Chloride 0.9% 500 ml 500 ml @ 167 mls/hr IVPB Q12HR [facility] Rx#: [id number] Oral 0 Other: Voiding Method Toilet # Voids 3 - Exam GENERAL DESCRIPTION: Middle-age male lying in bed in no distress HEENT: Anterior neck surgical site incision with some erythema and swelling no drainage RESPIRATORY SYSTEM: Unlabored breathing , decreased breath sounds at bases HEART: S1 S2 regular rate and rhythm , ABDOMEN: Soft , no tenderness EXTREMITIES: No edema feet - Labs CBC & Chem 7: 12/20/21 05:30 12/21/21 05:49 Labs: Abnormal Lab Results - Last 24 Hours (Table) 12/19/21 Range/Units 07:46 BUN 7 L (9-20) mg/dL Microbiology - Last 24 Hours (Table) 12/17/21 20:17 Blood Culture - Preliminary Blood No Growth after 24 hours 12/17/21 20:00 Blood Culture - Preliminary Blood No Growth after 24 hours Assessment and Plan (1) Cellulitis, wound, post-operative Current Visit: Yes Status: Acute Code(s): T81.49XA - INFECTION FOLLOWING A PROCEDURE, OTHER SURGICAL SITE, INIT SNOMED Code(s): 150336145 Plan: 1patient with recent cervical decompression surgery now presenting to the hospital with increasing swelling redness to the anterior neck incision with abnormal CT concerning for a fluid collection and a question of postoperative seroma versus developing abscess. 2patient is scheduled for surgical drainage and deep cultures this afternoon. 3patient to continue with vancomycin pharmacy to dose target trough of 15 while watching kidney function and vancomycin trough closely. Time with Patient: Less than 30
--- NOTE | 2021-12-21 08:27 | P.PN ---
Subjective Progress Note Date: 12/20/21 Principal diagnosis: Surgical site infection Patient is a 56-year-old male male who is status post C4 to 7 anterior decompression procedure a week prior to this admission to the hospital presenting with increasing swelling and redness to the anterior neck surgical site CT concerning for possible seroma versus infected hematoma. Patient is status post surgical drainage of possible infected hematoma on 12/19/2021 On today's evaluation that is 12/20/2021, the patient remains to be afebrile, the patient pain to the right anterior neck area is currently controlled, the patient denies chest pain shortness of breath or cough no abdominal pain no diarrhea Objective - Vital Signs Vital signs: Vital Signs Temp 98.0 F 12/20/21 11:11 Pulse 57 L 12/20/21 11:11 Resp 18 12/20/21 11:11 BP 177/94 12/20/21 11:11 Pulse Ox 99 12/20/21 11:11 FiO2 Intake & Output 12/19/21 12/20/21 12/20/21 18:59 06:59 18:59 Intake Total 700 1024 Output Total 545 Balance 700 479 Intake: IV 802 Intake, IV Titration 700 Amount Sodium Chloride 0.9% 1, 200 000 ml @ 50 mls/hr IV . Q20H [facility] Rx#:[id number] Vancomycin 1,500 mg In 500 Sodium Chloride 0.9% 500 ml 500 ml @ 167 mls/hr IVPB Q12HR [facility] Rx#: [id number] Oral 222 Output: Drainage 5 Right Neck 5 Urine 500 Estimated Blood Loss 40 Other: Voiding Method Toilet Toilet # Voids 1 - Exam GENERAL DESCRIPTION: Middle-age male lying in bed in no distress HEENT: Anterior neck surgical site currently dressed minimal drainage on the dressing RESPIRATORY SYSTEM: Unlabored breathing , decreased breath sounds at bases HEART: S1 S2 regular rate and rhythm , ABDOMEN: Soft , no tenderness EXTREMITIES: No edema feet - Labs CBC & Chem 7: 12/20/21 05:30 12/21/21 05:49 Labs: Abnormal Lab Results - Last 24 Hours (Table) 12/20/21 Range/Units 05:30 RBC 3.94 L (4.40-5.60) X 10*6/uL Hgb 12.5 L (13.0-17.0) g/dL Hct 38.5 L (39.6-50.0) % MCV 97.7 H (80.0-97.0) fL Microbiology - Last 24 Hours (Table) 12/19/21 20:22 Gram Stain - Preliminary Neck Tissue Culture - Preliminary 12/19/21 20:20 Gram Stain - Preliminary Neck Wound Culture - Preliminary 12/19/21 20:21 Gram Stain - Preliminary Neck Wound Culture - Preliminary 12/19/21 20:22 Anaerobic Culture - Preliminary Neck 12/19/21 20:20 Anaerobic Culture - Preliminary Neck 12/19/21 20:21 Anaerobic Culture - Preliminary Neck 12/17/21 20:17 Blood Culture - Preliminary Blood No Growth after 48 hours 12/17/21 20:00 Blood Culture - Preliminary Blood No Growth after 48 hours Assessment and Plan (1) Cellulitis, wound, post-operative Current Visit: Yes Status: Acute Code(s): T81.49XA - INFECTION FOLLOWING A PROCEDURE, OTHER SURGICAL SITE, INIT SNOMED Code(s): 332282994 Plan: 1patient with recent cervical decompression surgery now presenting to the hospital with increasing swelling redness to the anterior neck incision with abnormal CT concerning for a fluid collection and a question of postoperative seroma versus developing abscess. 2patient is status post surgical drainage and deep cultures which are currently pending 3patient to continue with vancomycin pharmacy to dose while waiting for the cultures to finalize Time with Patient: Less than 30
[2021-12-21] MEDS ORDERED: BENZOCAINE/MENTHOL LOZENG 1 EACH LOZENGE MUCOUS MEM PRN (11:20)
[2021-12-21] MEDS: SENNOSIDES-DOCUSATE SODIUM 1 EACH TAB PO SCH (12:47)
[2021-12-21] MEDS ORDERED: hydrALAZINE HCL 50 MG TAB PO STA (13:03)
--- NOTE | 2021-12-21 14:30 | P.PN ---
Subjective Progress Note Date: 12/21/21 Principal diagnosis: 1. Wound dehiscence anterior neck 2. Fluid collection, seroma 3. Superficial hematoma Patient was seen at bedside this afternoon dressing, placed sitting up in bed with soft cervical collar present. Patient says he is having some pain to the front of the neck. Patient says this does radiate to the back of his neck. Patient says this is managed and under control with some of the pain medication. Patient says he has been up and walking around okay since surgery. Patient says he has urinated several times since surgery. Patient says he has not had a bowel movement yet, however, patient says he has been passing gas. Patient denies chest pain, fever, shortness breath, nausea, I can't change in vision, loss of bowel/bladder control. Objective - Vital Signs Vital signs: Vital Signs Temp 98.1 F 12/21/21 11:32 Pulse 54 L 12/21/21 11:32 Resp 20 12/21/21 11:32 BP 170/98 12/21/21 11:32 Pulse Ox 98 12/21/21 04:12 FiO2 Intake & Output 12/20/21 12/21/21 12/21/21 18:59 06:59 18:59 Output Total 20 Balance -20 Output: Drainage 20 Right Neck 20 Other: Voiding Method Toilet Toilet # Voids 1 - Exam 4 x 4 and Tegaderms are present over drain incision and surgical incision. Surgical incision appears to be healing well at this time. Nylon sutures are in place and well aligned. Negative for any drainage at this time. 20 mL serosanguineous drainage is present in the bulb drain as 7 AM this morning. Minimal drainage now. Patient does have some tenderness to palpation over the incision. Nontender to palpation throughout rest of exam. Sensation is equal, symmetric, by intact throughout the upper and lower extremity's. Patient does have full range of motion bilateral lower extremity's. Patient does have some limited range of motion in bilateral shoulder forward elevation and external/internal rotation. Patient has full range of motion in elbow flexion/e xtension and wrist flexion/extension bilaterally. 5/5 in all major motor is in bilateral lower extremities. 5/5 in all major milligrams in bilateral upper joints. Cap refill under 3 seconds in digits the upper extremity's. Radial pulses intact, 2+ bilaterally. Negative Homans bilaterally. Negative Elvie bilaterally. - Labs CBC & Chem 7: 12/20/21 05:30 12/21/21 05:49 Labs: Abnormal Lab Results - Last 24 Hours (Table) 12/21/21 Range/Units 05:49 Glucose 108 H (74-99) mg/dL Microbiology - Last 24 Hours (Table) 12/19/21 20:22 Gram Stain - Preliminary Neck Tissue Culture - Preliminary 12/17/21 20:17 Blood Culture - Preliminary Blood No Growth after 72 hours 12/17/21 20:00 Blood Culture - Preliminary Blood No Growth after 72 hours 12/19/21 20:20 Gram Stain - Preliminary Neck Wound Culture - Preliminary 12/19/21 20:21 Gram Stain - Preliminary Neck Wound Culture - Preliminary Assessment and Plan Assessment: 1. Wound dehiscence anterior neck; Fluid collection, seroma; Superficial hematoma - Postop day #2 status post incision and drainage with irrigation and debridement skin and subcu every tissue muscle and bone anterior neck 4 cm x 5 cm x 2 cm Plan: 1. Wound dehiscence anterior neck; Fluid collection, seroma; Superficial hematoma - surgery performed 12/19/2021 - incision and drainage with irrigation and debridement skin and subcu every tissue muscle and bone anterior neck 4 cm x 5 cm x 2 cm. Patient stable at bedside this afternoon. We'll maintain dressing and drain at this time. We will await final cultures before removing drain. 20 mL serous sinus drainage present at 7 AM this morning. Drain will likely be removed tomorrow at bedside. Cultures pending. Incision appears to be healing well at this time. Negative for any fluctuance/purulence. Sutures well aligned. Maintain Vanco for now. We'll continue follow patient during his stay in hospital. 2. Appreciate medical management. 3. Pain management - [place]; Flexeril; gabapentin; IV meds only if necessary 4. DVT prophylaxis - mechanical 5.. GI prophylaxis - senna 6. PT/OT - weightbearing as tolerated. Keep cervical collar on at all times when up and about 7. Encourage incentive spirometer use 8. Discharge planning - stable once cultures are finalized and drain is remove; likely tomorrow Time with Patient: Less than 30
--- NOTE | 2021-12-21 14:48 | P.PN ---
Subjective Progress Note Date: 12/21/21 This is a 56-year-old male presents to hospital with concern for pain and redness at his cervical incisional site that began on Saturday. Patient also reports fever and chills. He does have some nausea. Since surgery he has reported some difficulty swallowing and also reports a funny taste in his mouth. No vomiting or diarrhea noted. He denies any chest pain or shortness of breath. He does report a cough with brown tinged sputum noted the patient is a half pack per day smoker which he continues. Patient underwent successful C4-C7 ACDF while in the hospital for a diagnosis of cervical spondylosis with stenosis. He was discharged on 12/13 and sent on antibiotics for 3 days as well as pain management with Percocet 5mg every 4 hours, Flexeril and Neurontin. Patient is afebrile, heart rate is 67, blood pressure is 171/94. 97% on room air. Patient was admitted with concern for sepsis and possible abscess at incision site. Does present with some mild luekocytosis and lactic acidosis. There is some areas of inflammation erythema noted and is tender to palpation. Patient was started on empiric antibiotic coverage IV vancomycin and infectious disease was consulted. Patient's surgeon Dr. Sparks was also consulted. He is scheduled to undergo incision and drainage of anterior neck wound with cultures tomorrow morning. Home medications will be resumed. 12/19/2021 Patient is monitored today on medical floor. He is scheduled to undergo surgical washout of the anterior neck incisional wound. No acute events overnight. Overall pain has improved some. Sodium level today is 139, potassium 4.1, BUN 7, creatinine 0.78. Blood cultures are negative so far and he continues on IV vancomycin. Infectious disease is following the patient. Patient is afebrile, blood pressure 173/94. Fluids will be stopped. 12/20/2021 Patient is evaluated today he is postoperative day #1 for anterior neck washout with Dr. Sparks. He has EROS drain in place with serosanguineous drainage total output 5 mls overnight. Continues with IV vancomycin pending finalized cultures. White count 7.39, hgb stable at 12.5. Remains afebrile, heart rate 57, blood pressure 177/94. Will decrease metoprolol. 12/21/2021 Patient is sitting up in bed. Currently reports pain a 8/10 and receiving IV dilaudid Q3 and also on oral pain medication. He had BM and recommend to continue with bowel regimen. He has EROS drain in place to right anterior neck with 20ml of output documented overnight. Preliminary cultures are negative so far. He continues on IV vancomycin and infectious disease is following. Blood pressure remains elevated today and medications were adjusted. His blood pressure is now in the 120s systolic. Labs stable today. Review of Systems Constitutional: Denied any fatigue denied any fever. Cardio vascular: denied any chest pain, palpitations Gastrointestinal: denied any nausea, vomiting, diarrhea Pulmonary: Denied any shortness of breath cough Neurologic denied any new focal deficits All inpatient medications were reviewed and appropriate changes in these medications as dictated in the interval history and assessment and plan. PHYSICAL EXAMINATION: GENERAL: The patient is alert and oriented x3, not in any acute distress. Well developed, well nourished. HEENT: Pupils are round and equally reacting to light. EOMI. No scleral icterus. No conjunctival pallor. Normocephalic, atraumatic. No pharyngeal erythema. No thyromegaly. CARDIOVASCULAR: S1 and S2 present. No murmurs, rubs, or gallops. PULMONARY: Chest is clear to auscultation, no wheezing or crackles. ABDOMEN: Soft, nontender, nondistended, normoactive bowel sounds. No palpable organomegaly. MUSCULOSKELETAL: No joint swelling or deformity. EXTREMITIES: No cyanosis, clubbing, or pedal edema. NEUROLOGICAL: Gross neurological examination did not reveal any focal deficits. SKIN: No rashes. Has an a right anterior neck incision with intact dressing and EROS drain in place. Serosanguineous drainage. Assessment and plan Assessment Fever and chills with concern for sepsis secondary to incisional site infection patient started on empiric antibiotic coverage and infectious diseases consult. Blood cultures are currently pending. Postoperative day #2 anterior neck washout Recent ACDF C4 through C7 for cervical spondylosis with stenosis COPD with mild acute exacerbation, no wheezing noted today Lactic acidosis, resolved Hypertension, improved History diverticulitis with bowel resection Former history of alcohol use Occasional TCH use Chronic nicotine dependence GI prophylaxis DVT prophylaxis Plan: Plan Continue with pain management Continue with empiric antibiotic coverage pending cultures Infectious disease consultation Blood pressure medication adjusted The impression and plan of care has been dictated by Irma Hu, Nurse Practitioner as directed. Dr. Cassius MD I have performed a history and physical examination and medical decision making of this patient, discussed the same with the dictator, and agree with the dictators assessment and plan as written, documented as a scribe. Based on total visit time, I have performed more than 50% of this visit. Objective - Vital Signs Vital signs: Vital Signs Temp 98.1 F 12/21/21 11:32 Pulse 65 12/21/21 14:33 Resp 20 12/21/21 11:32 BP 126/76 12/21/21 14:33 Pulse Ox 98 12/21/21 04:12 FiO2 Intake & Output 12/20/21 12/21/21 12/21/21 18:59 06:59 18:59 Output Total 20 Balance -20 Output: Drainage 20 Right Neck 20 Other: Voiding Method Toilet Toilet # Voids 1 - Labs CBC & Chem 7: 12/20/21 05:30 12/21/21 05:49 Labs: Abnormal Lab Results - Last 24 Hours (Table) 12/21/21 Range/Units 05:49 Glucose 108 H (74-99) mg/dL Microbiology - Last 24 Hours (Table) 12/19/21 20:22 Gram Stain - Preliminary Neck Tissue Culture - Preliminary 12/17/21 20:17 Blood Culture - Preliminary Blood No Growth after 72 hours 12/17/21 20:00 Blood Culture - Preliminary Blood No Growth after 72 hours 12/19/21 20:20 Gram Stain - Preliminary Neck Wound Culture - Preliminary 12/19/21 20:21 Gram Stain - Preliminary Neck Wound Culture - Preliminary Assessment and Plan Time with Patient: Less than 30
[2021-12-21] MEDS: LACTATED RINGERS 1,000 ML IV SCH (19:58)
[2021-12-21] MEDS: MIRTAZAPINE 15 MG TAB PO SCH (21:07)
[2021-12-22] MEDS: HYDROcodone/APAP 10-325MG 1 EACH TAB PO PRN ×3 (01:16→13:05)
[2021-12-22] MEDS: HYDROmorphone 1 MG/ML 1 ML SYRINGE IVP PRN ×3 (03:14→11:19)
[2021-12-22 03:53] VITALS: RESP 16
[2021-12-22] MEDS: CYCLOBENZAPRINE 5 MG TAB PO PRN (06:44)
[2021-12-22 07:46] LABS: African American GFR (CKD) >90 (>60 ml/min/1.73 sqM); Anion Gap 6 mmol/L; Blood Urea Nitrogen 9 mg/dL (9-20); Calcium 8.8 mg/dL (8.4-10.2); Carbon Dioxide 34 mmol/L (22-30); Chloride 98 mmol/L (98-107); Glucose 91 mg/dL (74-99); Non-African American GFR(CKD) 89 (>60 ml/min/1.73 sqM); Potassium 4.1 mmol/L (3.5-5.1); Sodium 138 mmol/L (137-145)
[2021-12-22] MEDS ORDERED: VANCOMYCIN TROUGH DUE 1 EACH MISC MISCELLANE ONE (08:00)
[2021-12-22] MEDS: PANTOPRAZOLE 40 MG TABLET PO SCH (08:24)
[2021-12-22] MEDS: SENNOSIDES-DOCUSATE SODIUM 1 EACH TAB PO SCH (08:24)
[2021-12-22] MEDS: GABAPENTIN 300 MG CAP PO SCH (08:24)
[2021-12-22] MEDS: SERTRALINE 100 MG TAB PO SCH (08:24)
[2021-12-22] MEDS: METOPROLOL TARTRATE 12.5 MG TAB PO SCH (08:24)
[2021-12-22] MEDS: ATORVASTATIN 20 MG TAB PO SCH (08:24)
[2021-12-22] MEDS: LOSARTAN 50 MG TAB PO SCH (08:25)
[2021-12-22] MEDS: allopurinoL 100 MG TAB PO SCH (08:25)
[2021-12-22] MEDS: amLODIPine 10 MG TAB PO SCH (08:25)
[2021-12-22] MEDS: NICOTINE 21MG/24HR PATCH TRANSDERM SCH (08:25)
[2021-12-22] MEDS: VANCOMYCIN 1,500 MG in SODIUM CHLORIDE 0.9% 500 ML 500 ML IVPB SCH (08:29)
[2021-12-22] MEDS ORDERED: hydrALAZINE HCL 25 MG TAB PO SCH (09:00)
--- NOTE | 2021-12-22 10:47 | P.PN ---
Subjective Progress Note Date: 12/22/21 Principal diagnosis: 1. Wound dehiscence anterior neck 2. Fluid collection, seroma 3. Superficial hematoma Patient was seen at bedside this morning resting comfortably lying in semirecumbent position. Patient says he is ready for his drain to be removed. Patient says he is wanting to go home. Patient says he is having some pain to the front of the neck. Patient says there is some radiation to the back of the neck. Patient says he has been walking everyday since surgery. Patient says he has urinated several times since surgery. Patient says he has not had a bowel movement yet, however, patient says he has been passing gas. Patient denies chest pain, fever, shortness breath, nausea, vomiting, change in vision, loss of bowel/bladder control. Objective - Vital Signs Vital signs: Vital Signs Temp 98.2 F 12/22/21 03:51 Pulse 59 L 12/22/21 03:51 Resp 16 12/22/21 03:51 BP 125/82 12/22/21 03:51 Pulse Ox 95 12/22/21 03:51 FiO2 Intake & Output 12/21/21 12/22/21 12/22/21 18:59 06:59 18:59 Intake Total 1000 Balance 1000 Intake: Intake, IV Titration 500 Amount Vancomycin 1,500 mg In 500 Sodium Chloride 0.9% 500 ml 500 ml @ 167 mls/hr IVPB Q12HR [facility] Rx#: [id number] Oral 500 Other: Voiding Method Toilet # Voids 2 2 - Exam Drain was removed at bedside. Minimal serosanguineous drainage. 4 x 4's and Tegaderm were placed over drain incision. New surgical dressing was placed over surgical incision. Incision appears to be clean, dry, intact. Negative for any fluctuance/purulence. Sutures are well aligned. Patient does have some ten derness to palpation over the incision. Nontender to palpation throughout rest of exam. Sensation is equal, symmetric, by intact throughout the upper and lower extremities. Patient does have full range of motion bilateral lower extremities. Patient does have some limited range of motion in bilateral shoulder forward elevation and external/internal rotation. Patient has full range of motion in elbow flexion/extension and wrist flexion/extension bilaterally. 5/5 in all major motor is in bilateral lower extremities. 5/5 in all major motor groups in bilateral upper extremities. Cap refill under 3 seconds in digits the upper extremities. Radial pulses intact, 2+ bilaterally. Negative Homans bilaterally. Negative Elvie bilaterally. - Labs CBC & Chem 7: 12/20/21 05:30 12/22/21 07:18 Labs: Abnormal Lab Results - Last 24 Hours (Table) 12/22/21 Range/Units 07:18 Carbon Dioxide 34 H (22-30) mmol/L Microbiology - Last 24 Hours (Table) 12/19/21 20:22 Gram Stain - Preliminary Neck Tissue Culture - Preliminary 12/17/21 20:17 Blood Culture - Preliminary Blood No Growth after 96 hours 12/17/21 20:00 Blood Culture - Preliminary Blood No Growth after 96 hours 12/19/21 20:20 Gram Stain - Final Neck Wound Culture - Final 12/19/21 20:21 Gram Stain - Final Neck Wound Culture - Final 12/19/21 20:21 Anaerobic Culture - Preliminary Neck Assessment and Plan Assessment: 1. Wound dehiscence anterior neck; Fluid collection, seroma; Superficial hematoma - Postop day #3 status post incision and drainage with irrigation and debridement skin and subcu every tissue muscle and bone anterior neck 4 cm x 5 cm x 2 cm Plan: 1. Wound dehiscence anterior neck; Fluid collection, seroma; Superficial hematoma - surgery performed 12/19/2021 - incision and drainage with irrigation and debridement skin and subcu every tissue muscle and bone anterior neck 4 cm x 5 cm x 2 cm. Patient stable at bedside this morning. Drain removed at bedside. Minimal serosanguineous drainage. Incision appears clean, dry, intact. Sutures well aligned. New optifoam dressing placed over incision. 4x4s and tegaderm placed over drain incision. Maintain Vanco for now. Patient stable from an orthopedic standpoint for discharge home. Gram stain is finalized. Awaiting final anaerobic cultures. Antibiotics per ID. At this time orthopedics is signing off. Please do not hesitate to contact us for any further questions. 2. Appreciate medical management and ID management 3. Pain management - Percocet; Flexeril; gabapentin; IV meds only if necessary 4. DVT prophylaxis - mechanical 5.. GI prophylaxis - senna 6. PT/OT - weightbearing as tolerated. Keep cervical collar on at all times when up and about 7. Encourage incentive spirometer use 8. Discharge planning - stable once cultures are finalized; likely later today Time with Patient: Less than 30
[2021-12-22 12:19] VITALS: BP 132/85; PULSE 57; TEMP 98.7
[2021-12-22 12:30] VITALS: BMI 31.4
--- NOTE | 2021-12-26 08:11 | CDI ---
Documentation Clarification Form Date: 12/26/2021 08:01:00 AM From: Rosa Manning Admit Date: 12/17/2021 09:54:00 PM Patient Name: Medardo Galan Visit Number: [id number] Discharge Date: 12/22/2021 03:15:00 PM ATTENTION: The Clinical Documentation Specialists (CDI) and [facility] Coding Staff appreciate your assistance in clarifying documentation. Please respond to the clarification below the line at the bottom and electronically sign. The CDI & [facility] Coding staff will review the response and follow-up if needed. Please note: Queries are made part of the Legal Health Record. If you have any questions, please contact the author of this message via ITS. Dr. Dallin Sparks I and D with irrigation and debridement skin and subcutaneous tissue, muscle and bone anterior neck. Please clarify if this was a non excisional debridement down to bone or an excisional debridement down to bone. Additional clarification regarding the procedure is requested. History/Risk Factors: Post operative wound dehiscence, seroma and superficial hematoma anterior neck. Clinical Indicators: Treatment: I and D with irrigation and debridement. IV antibiotics Please clarify the type of procedure performed: [ ] Excisional debridement (the removal of necrotic, devitalized tissue or slough by means of cutting away of tissue) [ ] Non-excisional debridement (the removal of necrotic, devitalized tissue or slough by means of flushing, brushing, or washing. (Irrigation) [ ] Other; please specify [ ] Unable to determine Five elements required for accurate and compliant documentation of a debridement: Technique used (e.g., excisional, excised, cutting, brushing, jet lavage etc.) Instrument(s) used (e.g., scalpel, curette, etc.) Nature of the tissue removed (e.g., necrotic, devitalized tissues, non-viable tissue, etc.) Appearance and size of the wound (e.g., down to fresh bleeding tissue, 7cm x 10cm, etc.) Depth of the debridement* (e.g., skin, subcutaneous tissue, fascia, muscle, bone, etc.) Non-excisional debridement (the removal of necrotic, devitalized tissue or slough by means of flushing, brushing, or washing. (Irrigation) [facility]
== END 2021-12-22 15:15 | disposition home health service (06) | DRG 856 ==
LOC: EC 19:29 → 5NMEDONC 21:54
PROVIDERS: ADMIT Internal Medicine; ATTEND Internal Medicine
PROC: 0H94X0Z Drainage of Neck Skin with Drainage Device, External Approach (ICD-10-PCS; principal; 2021-12-19 07:30)
PROC: 0PD30ZZ Extraction of Cervical Vertebra, Open Approach (ICD-10-PCS; principal; 2021-12-19 07:30)
DX: T81.41XA Infection following a procedure, superficial incisional surgical site, initial encounter (principal); A41.9 Sepsis, unspecified organism; E87.20 Acidosis, unspecified; L03.221 Cellulitis of neck; J44.1 Chronic obstructive pulmonary disease with (acute) exacerbation; L76.34 Postprocedural seroma of skin and subcutaneous tissue following other procedure; L76.32 Postprocedural hematoma of skin and subcutaneous tissue following other procedure; T81.31XA Disruption of external operation (surgical) wound, not elsewhere classified, initial encounter; M47.812 Spondylosis without myelopathy or radiculopathy, cervical region; F17.210 Nicotine dependence, cigarettes, uncomplicated; G89.29 Other chronic pain; F31.9 Bipolar disorder, unspecified; F10.11 Alcohol abuse, in remission; M19.90 Unspecified osteoarthritis, unspecified site; M48.02 Spinal stenosis, cervical region; M50.30 Other cervical disc degeneration, unspecified cervical region; F41.9 Anxiety disorder, unspecified; I10 Essential (primary) hypertension; R13.10 Dysphagia, unspecified; Z79.82 Long term (current) use of aspirin; Z79.899 Other long term (current) drug therapy; Z82.49 Family history of ischemic heart disease and other diseases of the circulatory system; Z98.1 Arthrodesis status; Z87.01 Personal history of pneumonia (recurrent); Z28.311 Partially vaccinated for COVID-19
CPT/HCPCS: 36415; 70491; 80048; 80053; 80202; 83605; 85025; 85610; 85652; 85730; 86140; 87040; 87070; 87075; 87205; 94640; 96361; 96365; 96366; 96375; 99284

== ENCOUNTER 2022-01-18 17:06 | Emergency (ER) | payer MEDICARE, OTHER ==
[2022-01-18 17:47] VITALS: TEMP 98
[2022-01-18] MEDS ORDERED: SODIUM CHLORIDE 0.9% 1,000 ML IV STA (18:10)
[2022-01-18] MEDS ORDERED: ACETAMINOPHEN TAB 325 MG TAB PO STA (18:11)
--- NOTE | 2022-01-18 18:15 | ED ---
Psych HPI - General Source: patient, RN notes reviewed, old records reviewed Mode of arrival: ambulatory - History of Present Illness MD Complaint: suicidal ideation, feels depressed -: week(s) (3) Associated Psychiatric Symptoms: depression History of same: Yes Quality: constant Improves With: none Worsens With: alcohol Context: recent alcohol abuse Associated Symptoms: other (diarrhea) <Montana Davis - Last Filed: 01/18/22 23:39> <Mychal Glasgow - Last Filed: 01/19/22 12:05> - General Chief Complaint: Psychiatric Symptoms Stated Complaint: Mental Health Time Seen by Provider: 01/18/22 17:58 - History of Present Illness Initial Comments: This is a nontoxic-appearing 56-year-old male that presents to the emergency room with complaints of depression and suicidal thoughts. Patient states he d oes not have a plan. He did start drinking again today about a pint of whiskey. States he does have a history of prior suicidal thoughts and depression and alcohol abuse. Was last hospitalized in June for his depression. Does take Zoloft daily. Patient states his last alcohol use was 3 months ago until he started drinking again today. States also developed diarrhea today from drinking and has had more than 5 episodes of brown diarrhea. Denies any vomiting or fevers. No abdominal pain. (Montana Davis) - Related Data Home Medications Medication Instructions Recorded Confirmed allopurinoL 100 mg PO DAILY 11/06/21 01/18/22 tiZANidine [Zanaflex] 4 mg PO TID PRN 11/06/21 01/18/22 Albuterol Inhaler [Ventolin Hfa 2 puff INHALATION RT-QID 12/08/21 01/18/22 Inhaler] Sertraline [Zoloft] 100 mg PO DAILY 12/08/21 01/18/22 Rosuvastatin [Crestor] 10 mg PO DAILY 12/18/21 01/18/22 Terbinafine [LamISIL] 250 mg PO DAILY 12/18/21 01/18/22 Previous Rx's Medication Instructions Recorded Aspirin 81 mg PO DAILY 05/24/21 Mirtazapine [Remeron] 15 mg PO HS 30 Days tab 05/24/21 Gabapentin [Neurontin] 300 mg PO TID #90 cap 12/13/21 Acetaminophen Tab [Tylenol] 650 mg PO Q6HR PRN tab 12/22/21 Losartan [Cozaar] 50 mg PO BID #60 tab 12/22/21 Metoprolol Tartrate [Lopressor] 12.5 mg PO BID #60 tab 12/22/21 Pantoprazole [Protonix] 40 mg PO DAILY #20 tab 12/22/21 Sennosides/Docusate Sodium [Senna 1 each PO DAILY #20 tablet 12/22/21 Plus 8.6-50 mg Tablet] amLODIPine [Norvasc] 10 mg PO DAILY #30 tab 12/22/21 hydrALAZINE HCL [Apresoline] 25 mg PO BID #60 tab 12/22/21 oxyCODONE-APAP 7.5-325MG [Percocet 1 tab PO Q6HR PRN #21 tab 12/22/21 7.5-325 mg] Allergies Allergy/AdvReac Type Severity Reaction Status Date / Time clonidine [From Catapres] AdvReac Vomiting Verified 01/18/22 22:33 Review of Systems ROS Other: All systems not noted in ROS Statement are negative. <Montana Davis - Last Filed: 01/18/22 23:39> ROS Other: All systems not noted in ROS Statement are negative. <Mychal Glasgow - Last Filed: 01/19/22 12:05> ROS Statement: Those systems with pertinent positive or pertinent negative responses have been documented in the HPI. Past Medical History Past Medical History: COPD, Hypertension, Osteoarthritis (OA), Pneumonia Additional Past Medical History / Comment(s): Hx ETOH abuse(no alcohol since 05/15/21), past withdrawal per pt with shaking/nausea and diarrhea, pancreatitis, diverticulitis, chronic cervical/back pain/DDD and cervical spondylosis, bronchitis. History of Any Multi-Drug Resistant Organisms: C-DIFF Date of last positivie culture/infection: 2005 MDRO Source:: stool Past Surgical History: Bowel Resection Additional Past Surgical History / Comment(s): Bowel resection with 10 inches removed d/t diverticulitis, colonoscopy, benign lump removed from scrotum, bilateral rotator cuff repair, pain clinic procedures. Past Anesthesia/Blood Transfusion Reactions: No Reported Reaction Past Psychological History: Anxiety, Bipolar, Depression Smoking Status: Current every day smoker Past Alcohol Use History: Abuse, Daily, Heavy Past Drug Use History: Marijuana - Past Family History Father Family Medical History: Congestive Heart Failure (CHF) Additional Family Medical History / Comment(s): Father was healthy. Mother Family Medical History: Congestive Heart Failure (CHF) <Montana Davis - Last Filed: 01/18/22 23:39> General Exam Limitations: no limitations General appearance: alert, in no apparent distress Head exam: Present: atraumatic, normocephalic, normal inspection Eye exam: Present: EOMI, conjunctival injection. Absent: periorbital swelling, periorbital tenderness ENT exam: Present: mucous membranes moist Neck exam: Absent: tenderness, meningismus Respiratory exam: Present: normal lung sounds bilaterally. Absent: respiratory distress, wheezes, rales, rhonchi, stridor, chest wall tenderness, accessory muscle use Cardiovascular Exam: Present: tachycardia GI/Abdominal exam: Present: soft. Absent: distended, tenderness, rigid Extremities exam: Present: full ROM, normal capillary refill. Absent: tenderness, pedal edema Back exam: Present: full ROM. Absent: tenderness, CVA tenderness (R), CVA tenderness (L), rash noted Neurological exam: Present: alert (alert to person and place, states years 2019) Psychiatric exam: Present: normal affect, normal mood Skin exam: Present: warm, dry, normal color. Absent: cyanosis, diaphoretic, erythema, petechiae, pallor <Montana Davis - Last Filed: 01/18/22 23:39> Course Vital Signs 01/18/22 01/18/22 01/19/22 17:43 23:59 01:00 Temperature 98 F Pulse Rate 125 H 89 78 Respiratory 15 16 16 Rate Blood Pressure 141/96 183/95 158/88 O2 Sat by Pulse 95 97 96 Oximetry 01/19/22 01/19/22 01/19/22 02:00 06:00 08:20 Temperature Pulse Rate 72 69 110 H Respiratory 18 18 18 Rate Blood Pressure 129/84 126/64 166/90 O2 Sat by Pulse 94 L 93 L 98 Oximetry Medical Decision Making - Lab Data Result diagrams: 01/18/22 18:44 01/18/22 18:44 <Montana Davis - Last Filed: 01/18/22 23:39> - Lab Data Result diagrams: 01/18/22 18:44 01/18/22 18:44 <Mychal Glasgow - Last Filed: 01/19/22 12:05> - Medical Decision Making Patient presents with depression and suicidal thoughts. Denies any plan. Does have a history of depression and is currently taking Zoloft. He also has a history of alcohol abuse but states that he had stopped drinking in June. Started drinking today, a pint of whiskey. Denies any pain or discomfort. No injuries. Speech is clear. Labs show no evidence of leukocytosis, hemoglobin and hematocrit are stable. Electrolytes are unremarkable. Serum alcohol 375. Case discussed with Dr. Goodwin, patient will be observed in the emergency room until sober when EPS can evaluate him. (Montana Davis) EPS evaluated the patient and the patient denied any suicidal ideations and he will be given services that he can follow-up with as an outpatient and he is in agreement to do so. (Mychal Glasgow) - Lab Data Lab Results 01/18/22 01/18/22 01/18/22 Range/Units 18:44 18:44 18:44 WBC 5.3 (3.8-10.6) k/uL RBC 4.85 (4.30-5.90) m/uL Hgb 15.3 (13.0-17.5) gm/dL Hct 45.6 (39.0-53.0) % MCV 94.1 (80.0-100.0) fL MCH 31.5 (25.0-35.0) pg MCHC 33.5 (31.0-37.0) g/dL RDW 12.9 (11.5-15.5) % Plt Count 265 (150-450) k/uL MPV 7.3 Neutrophils % 45 % Lymphocytes % 44 % Monocytes % 6 % Eosinophils % 2 % Basophils % 2 % Neutrophils # 2.4 (1.3-7.7) k/uL Lymphocytes # 2.3 (1.0-4.8) k/uL Monocytes # 0.3 (0-1.0) k/uL Eosinophils # 0.1 (0-0.7) k/uL Basophils # 0.1 (0-0.2) k/uL Sodium 147 H (137-145) mmol/L Potassium 4.5 (3.5-5.1) mmol/L Chloride 108 H (98-107) mmol/L Carbon Dioxide 24 (22-30) mmol/L Anion Gap 15 mmol/L BUN 5 L (9-20) mg/dL Creatinine 0.81 (0.66-1.25) mg/dL Est GFR (CKD-EPI)AfAm >90 (>60 ml/min/1.73 sqM) Est GFR (CKD-EPI)NonAf >90 (>60 ml/min/1.73 sqM) Glucose 120 H (74-99) mg/dL Calcium 9.0 (8.4-10.2) mg/dL Magnesium 2.2 (1.6-2.3) mg/dL Total Bilirubin 0.4 (0.2-1.3) mg/dL AST 40 (17-59) U/L ALT 24 (4-49) U/L Alkaline Phosphatase 72 (38-126) U/L Total Protein 7.9 (6.3-8.2) g/dL Albumin 4.7 (3.5-5.0) g/dL Amylase 62 (30-110) U/L Lipase 170 (23-300) U/L Serum Alcohol 375 H* mg/dL Disposition <Montana Davis - Last Filed: 01/18/22 23:39> Is patient prescribed a controlled substance at d/c from ED?: No Time of Disposition: 12:05 <Mychal Glasgow - Last Filed: 01/19/22 12:05> Clinical Impression: Situational depression, Alcohol intoxication Disposition: HOME SELF-CARE Condition: Good Instructions (If sedation given, give patient instructions): Abuse of Alcohol (ED), Depression (ED) Referrals: Florencio Goodman MD [Primary Care Provider] - 1-2 days
[2022-01-18 18:49] LABS: Basophils # (A) 0.1 k/uL (0-0.2); Basophils % (A) 2 %; Eosinophils # (A) 0.1 k/uL (0-0.7); Eosinophils % (A) 2 %; HCT 45.6 % (39.0-53.0); HGB 15.3 gm/dL (13.0-17.5); Lymphocytes # (A) 2.3 k/uL (1.0-4.8); Lymphocytes % (A) 44 %; MCH 31.5 pg (25.0-35.0); MCHC 33.5 g/dL (31.0-37.0); MCV 94.1 fL (80.0-100.0); Mean Platelet Volume 7.3; Monocytes # (A) 0.3 k/uL (0-1.0); Monocytes % (A) 6 %; Neutrophils # (A) 2.4 k/uL (1.3-7.7); Neutrophils % (A) 45 %; Platelet Count 265 k/uL (150-450); RBC 4.85 m/uL (4.30-5.90); RDW 12.9 % (11.5-15.5); WBC 5.3 k/uL (3.8-10.6)
[2022-01-18 19:06] LABS: ALT 24 U/L (4-49); AST 40 U/L (17-59); African American GFR (CKD) >90 (>60 ml/min/1.73 sqM); Albumin 4.7 g/dL (3.5-5.0); Alkaline Phosphatase 72 U/L (38-126); Amylase 62 U/L (30-110); Anion Gap 15 mmol/L; Blood Urea Nitrogen 5 mg/dL (9-20); Carbon Dioxide 24 mmol/L (22-30); Chloride 108 mmol/L (98-107); Glucose 120 mg/dL (74-99); Lipase 170 U/L (23-300); Non-African American GFR(CKD) >90 (>60 ml/min/1.73 sqM); Potassium 4.5 mmol/L (3.5-5.1); Sodium 147 mmol/L (137-145); Total Bilirubin 0.4 mg/dL (0.2-1.3); Total Protein 7.9 g/dL (6.3-8.2)
[2022-01-18 19:24] LABS: Alcohol 375 mg/dL
[2022-01-18] MEDS ORDERED: oxyCODONE-APAP 7.5-325MG 1 EACH TAB PO PRN (23:30)
[2022-01-18] MEDS ORDERED: ACETAMINOPHEN TAB 325 MG TAB PO PRN (23:30)
[2022-01-18] MEDS ORDERED: tiZANidine 4 MG TAB PO PRN (23:30)
[2022-01-19] MEDS ORDERED: ONDANSETRON 4 MG/2 ML VIAL IVP STA (00:10)
[2022-01-19] MEDS ORDERED: SODIUM CHLORIDE 0.9% 1,000 ML IV STA (00:10)
[2022-01-19] MEDS ORDERED: ONDANSETRON 4 MG/2 ML VIAL IVP PRN (00:10)
[2022-01-19] MEDS ORDERED: LORazepam 2 MG/ML INJ IV STA ×3 (00:10→08:02)
[2022-01-19] MEDS: SODIUM CHLORIDE 0.9% 1,000 ML IV SCH ×2 (01:10→09:33)
[2022-01-19 02:17] VITALS: RESP 18
[2022-01-19] MEDS ORDERED: PANTOPRAZOLE 40 MG TABLET PO SCH (07:30)
[2022-01-19] MEDS ORDERED: ALBUTEROL NEBULIZED 2.5 MG/3 ML INHALATION SCH (08:00)
[2022-01-19 08:21] VITALS: BP 166/90; PULSE 110
[2022-01-19] MEDS ORDERED: METOPROLOL TARTRATE 12.5 MG TAB PO SCH (09:00)
[2022-01-19] MEDS ORDERED: SERTRALINE 100 MG TAB PO SCH (09:00)
[2022-01-19] MEDS ORDERED: amLODIPine 10 MG TAB PO SCH (09:00)
[2022-01-19] MEDS ORDERED: LOSARTAN 50 MG TAB PO SCH (09:00)
[2022-01-19] MEDS ORDERED: SENNOSIDES-DOCUSATE SODIUM 1 EACH TAB PO SCH (09:00)
[2022-01-19] MEDS ORDERED: allopurinoL 100 MG TAB PO SCH (09:00)
[2022-01-19] MEDS ORDERED: GABAPENTIN 300 MG CAP PO SCH (09:00)
[2022-01-19] MEDS ORDERED: ATORVASTATIN 20 MG TAB PO SCH (09:00)
[2022-01-19] MEDS ORDERED: ASPIRIN 81 MG PO SCH (09:00)
[2022-01-19] MEDS ORDERED: hydrALAZINE HCL 25 MG TAB PO SCH (09:00)
[2022-01-19] MEDS ORDERED: MIRTAZAPINE 15 MG TAB PO SCH (21:00)
== END 2022-01-19 12:40 | disposition home or self-care (01) ==
LOC: EC 17:06
DX: F43.21 Adjustment disorder with depressed mood (principal); F10.129 Alcohol abuse with intoxication, unspecified; J44.9 Chronic obstructive pulmonary disease, unspecified; I10 Essential (primary) hypertension; M19.90 Unspecified osteoarthritis, unspecified site; F41.9 Anxiety disorder, unspecified; F31.9 Bipolar disorder, unspecified; F17.200 Nicotine dependence, unspecified, uncomplicated; F12.90 Cannabis use, unspecified, uncomplicated; Z88.8 Allergy status to other drugs, medicaments and biological substances; Z79.899 Other long term (current) drug therapy
CPT/HCPCS: 82075; 36415; 80053; 82150; 83690; 83735; 85025; 99284; 96374; 96375; 96376 ×2; 96361 ×13; G0480; J2060; J2405; 80320

== ENCOUNTER → 2022-02-13 | Outpatient (CLI) | payer MEDICARE, OTHER ==
--- NOTE | 2022-02-13 13:00 | XR ---
EXAMINATION TYPE: XR chest 2V DATE OF EXAM: 02/13/2022 COMPARISON: 05/15/2021 HISTORY: 56-year-old male a 1.9, productive cough and congestion for one week TECHNIQUE: Frontal and lateral views FINDINGS: ACF hardware. Heart normal size. Aorta and pulmonary vasculature within normal limits. Fine interstit ial prominence mid and lower lungs. No consolidation or pleural effusion. IMPRESSION: Some interstitial prominence could reflect bronchitis or asthma. No focal infiltrate seen.
== END | disposition home or self-care (01) ==
LOC: RADXRMAIN 11:02
PROVIDERS: ATTEND Family Medicine
DX: J18.9 Pneumonia, unspecified organism (principal)
CPT/HCPCS: 71046

== ENCOUNTER 2022-02-17 20:39 | Emergency (ER) | payer MEDICARE, OTHER ==
--- NOTE | 2022-02-17 21:26 | ED ---
URI HPI - General Chief Complaint: Upper Respiratory Infection Stated Complaint: Cough,sob,headache,Fever Time Seen by Provider: 02/17/22 21:19 Source: patient, RN notes reviewed, old records reviewed Mode of arrival: ambulatory Limitations: no limitations - History of Present Illness Initial Comments: 56-year-old male presents to the emergency room with complaints of 1 week of cough congestion fever. Seen primary care doctor on the and had x-ray that was negative. Prescribed him antibiotics which he has been taking with no relief of his symp toms. Patient does have a history of COPD, hypertension and pneumonia. MD Complaint: fever, cough, nasal congestion, other (Nausea vomiting diarrhea) -: week(s) (1) Consistency: constant Treatments Prior to Arrival: antibiotics - Related Data Home Medications Medication Instructions Recorded Confirmed allopurinoL 100 mg PO DAILY 11/06/21 01/18/22 tiZANidine [Zanaflex] 4 mg PO TID PRN 11/06/21 01/18/22 Albuterol Inhaler [Ventolin Hfa 2 puff INHALATION RT-QID 12/08/21 01/18/22 Inhaler] Sertraline [Zoloft] 100 mg PO DAILY 12/08/21 01/18/22 Rosuvastatin [Crestor] 10 mg PO DAILY 12/18/21 01/18/22 Terbinafine [LamISIL] 250 mg PO DAILY 12/18/21 01/18/22 Previous Rx's Medication Instructions Recorded Aspirin 81 mg PO DAILY 05/24/21 Mirtazapine [Remeron] 15 mg PO HS 30 Days tab 05/24/21 Gabapentin [Neurontin] 300 mg PO TID #90 cap 12/13/21 Acetaminophen Tab [Tylenol] 650 mg PO Q6HR PRN tab 12/22/21 Losartan [Cozaar] 50 mg PO BID #60 tab 12/22/21 Metoprolol Tartrate [Lopressor] 12.5 mg PO BID #60 tab 12/22/21 Pantoprazole [Protonix] 40 mg PO DAILY #20 tab 12/22/21 Sennosides/Docusate Sodium [Senna 1 each PO DAILY #20 tablet 12/22/21 Plus 8.6-50 mg Tablet] amLODIPine [Norvasc] 10 mg PO DAILY #30 tab 12/22/21 hydrALAZINE HCL [Apresoline] 25 mg PO BID #60 tab 12/22/21 oxyCODONE-APAP 7.5-325MG [Percocet 1 tab PO Q6HR PRN #21 tab 12/22/21 7.5-325 mg] predniSONE 50 mg PO DAILY #5 tab 02/17/22 Allergies Allergy/AdvReac Type Severity Reaction Status Date / Time clonidine [From Catapres] AdvReac Vomiting Verified 02/17/22 20:45 Review of Systems ROS Statement: Those systems with pertinent positive or pertinent negative responses have been documented in the HPI. ROS Other: All systems not noted in ROS Statement are negative. Past Medical History Past Medical History: COPD, Hypertension, Osteoarthritis (OA), Pneumonia Additional Past Medical History / Comment(s): Hx ETOH abuse(no alcohol since 05/15/21), past withdrawal per pt with shaking/nausea and diarrhea, pancreatitis, diverticulitis, chronic cervical/back pain/DDD and cervical spondylosis, bronchitis. History of Any Multi-Drug Resistant Organisms: C-DIFF Date of last positivie culture/infection: 2005 MDRO Source:: stool Past Surgical History: Bowel Resection Additional Past Surgical History / Comment(s): Bowel resection with 10 inches removed d/t diverticulitis, colonoscopy, benign lump removed from scrotum, bilateral rotator cuff repair, pain clinic procedures. Past Anesthesia/Blood Transfusion Reactions: No Reported Reaction Past Psychological History: Anxiety, Bipolar, Depression Smoking Status: Current every day smoker Past Alcohol Use History: Abuse, Daily, Heavy Past Drug Use History: Marijuana - Past Family History Father Family Medical History: Congestive Heart Failure (CHF) Additional Family Medical History / Comment(s): Father was healthy. Mother Family Medical History: Congestive Heart Failure (CHF) General Exam Limitations: no limitations General appearance: alert, in no apparent distress Head exam: Present: atraumatic, normocephalic Eye exam: Absent: scleral icterus, conjunctival injection, periorbital swelling ENT exam: Present: mucous membranes moist Neck exam: Present: full ROM. Absent: tenderness, meningismus Respiratory exam: Present: normal lung sounds bilaterally. Absent: respiratory distress, rales, stridor, accessory muscle use Cardiovascular Exam: Present: regular rate Extremities exam: Present: normal capillary refill Neurological exam: Present: alert, oriented X3 Psychiatric exam: Present: normal affect, normal mood Skin exam: Present: warm, dry, normal color. Absent: cyanosis, diaphoretic, pallor, mottled Course Vital Signs 02/17/22 02/17/22 02/17/22 20:44 21:50 22:44 Temperature 97.9 F 98.0 F Pulse Rate 98 16 L Respiratory 18 18 17 Rate Blood Pressure 143/87 139/78 O2 Sat by Pulse 96 98 Oximetry Medical Decision Making - Medical Decision Making Influenza, RSV, coronavirus swab negative Chest x-ray interpreted by me shows no consolidation, normal cardiac size. Radiologist interpretation normal chest, no change compared to February 13 of this year. Patient was directed to continue the antibiotics as previously prescribed. Take the prednisone for bronchitis and follow-up with primary care doctor next week. Return to the emergency room with any new or concerning symptoms. He is agreeable to this plan of care. Case discussed with Dr. Goodwin - Lab Data Lab Results 02/17/22 Range/Units 21:00 Influenza Type A (PCR) Not Detected (Not Detectd) Influenza Type B (PCR) Not Detected (Not Detectd) RSV (PCR) Not Detected (Not Detectd) SARS-CoV-2 (PCR) Not Detected (Not Detectd) Disposition Clinical Impression: Acute upper respiratory infection Disposition: HOME SELF-CARE Condition: Good Instructions (If sedation given, give patient instructions): Upper Respiratory Infection (ED) Additional Instructions: Continue taking antibiotics as prescribed by your doctor. Chest x-ray today does not show evidence of pneumonia. Influenza and Covid swabs are also negative. This is likely a viral illness. Increase your fluid intake and take prednisone as prescribed for cough. Do not take ibuprofen products when taking prednisone as this will upset your stomach. Follow-up with your primary care doctor next week and return to emergency room if any new or concerning symptoms. Prescriptions: predniSONE 50 mg PO DAILY #5 tab Is patient prescribed a controlled substance at d/c from ED?: No Referrals: Florencio Goodman MD [Primary Care Provider] - 1-2 days Time of Disposition: 22:30
--- NOTE | 2022-02-17 21:33 | XR ---
EXAMINATION TYPE: XR chest 2V DATE OF EXAM: 02/17/2022 COMPARISON: 02/13/2022 HISTORY: Cough TECHNIQUE: 2 view FINDINGS: Heart is normal. Lungs are clear. Diaphragm is normal. Bony thorax is intact. IMPRESSION: Normal chest. No change.
[2022-02-17] MEDS ORDERED: predniSONE 50 MG TAB PO STA (22:37)
[2022-02-17 22:46] VITALS: BP 139/78; PULSE 16; RESP 17; TEMP 98
== END 2022-02-17 22:44 | disposition home or self-care (01) ==
LOC: EC 20:39
DX: J06.9 Acute upper respiratory infection, unspecified (principal); J44.9 Chronic obstructive pulmonary disease, unspecified; I10 Essential (primary) hypertension; M19.90 Unspecified osteoarthritis, unspecified site; F41.9 Anxiety disorder, unspecified; F31.9 Bipolar disorder, unspecified; F17.200 Nicotine dependence, unspecified, uncomplicated; F12.90 Cannabis use, unspecified, uncomplicated; Z88.8 Allergy status to other drugs, medicaments and biological substances; Z79.899 Other long term (current) drug therapy; Z20.822 Contact with and (suspected) exposure to COVID-19
CPT/HCPCS: 99285 ×2; 87636; 71046; 99284; J7512

== ENCOUNTER → 2022-02-28 | Outpatient (CLI) | payer MEDICARE, OTHER ==
[2022-02-28 14:51] LABS: Basophils # (A) 0.07 X 10*3/uL (0.00-0.10); Basophils % (A) 0.5 %; Eosinophils # (A) 0.58 X 10*3/uL (0.04-0.35); Eosinophils % (A) 4.3 %; HCT 43.2 % (39.6-50.0); HGB 13.6 g/dL (13.0-17.0); Immature Grans, Automated 0.6 %; Lymphocytes % (A) 28.8 %; MCH 30.6 pg (27.0-32.0); MCHC 31.5 g/dL (32.0-37.0); MCV 97.1 fL (80.0-97.0); Mean Platelet Volume 9.1 fL (9.5-12.2); Monocytes # (A) 0.83 X 10*3/uL (0.20-1.00); Monocytes % (A) 6.1 %; NRBC Per 100 WBC 0 /100 WBCS (0.0-0.0); Neutrophils # (A) 8.09 X 10*3/uL (1.80-7.70); Neutrophils % (A) 59.7 %; Platelet Count 447 X 10*3/uL (140-440); RBC 4.45 X 10*6/uL (4.40-5.60); RDW 13.6 % (11.5-14.5); WBC 13.55 X 10*3/uL (4.50-10.00)
[2022-02-28 16:48] LABS: Anion Gap 11.8 mmol/L (10.00-18.00); Carbon Dioxide 26.2 mmol/L (20.0-27.5); Potassium 4.5 mmol/L (3.5-5.5)
== END | disposition home or self-care (01) ==
LOC: LABPAT 10:39
PROVIDERS: ATTEND Orthopaedic Surgery Hand Surgery
DX: Z01.812 Encounter for preprocedural laboratory examination (principal); G56.01 Carpal tunnel syndrome, right upper limb; G56.21 Lesion of ulnar nerve, right upper limb
CPT/HCPCS: 80051; 85025

== ENCOUNTER → 2022-06-01 | Outpatient (CLI) | payer MEDICARE, OTHER ==
--- NOTE | 2022-06-01 17:40 | MR ---
EXAMINATION TYPE: MR lumbar spine wo con DATE OF EXAM: 06/01/2022 5:20 PM COMPARISON: None. CLINICAL INDICATION:Male, 56 years old with history of M54.16, M43.26; Low back pain that radiates in to thighs TECHNIQUE: Multi planar, multi sequence imaging was performed utilizing: T1-weighted, T2-weighted, a nd turbo inversion recovery imaging of the lumbar spine. IV Contrast: None. FINDINGS: Alignment: The lumbar vertebral bodies have preserved heights and straightening of the alignment. Cord: The conus medullaris and the distal spinal cord appear unremarkable with regards to their signa l intensity and morphology. Bones/Discs: Multilevel disc desiccation is present. There are scattered reactive bony edema on inver randall recovery sequences surrounding Schmorl's nodes and endplates. Scattered osteophyte formation and facet joint arthropathy are present. T12-L1: No evidence of significant spinal canal stenosis or neural foraminal stenosis. L1-L2: Disc bulge and facet joint arthropathy without significant spinal canal stenosis and mild bila teral neural foraminal stenosis. L2-L3: Disc bulge and facet joint arthropathy without significant spinal canal stenosis and mild to m oderate bilateral neural foraminal stenosis. L3-L4: Disc bulge and facet joint arthropathy without significant spinal canal stenosis and mild to m oderate bilateral neural foraminal stenosis. L4-L5: Disc bulge and facet joint arthropathy without significant spinal canal stenosis and moderate bilateral neural foraminal stenosis. L5-S1: No significant spinal canal stenosis. Osteophyte formation which abuts the exiting right and l eft nerves. There is moderate neural foraminal stenosis. The remainder of the visualized spine does not demonstrate significant spinal canal neural foraminal stenosis. Other findings: None. IMPRESSION: 1. No definitive evidence of disc herniation or significant spinal canal stenosis. 2. Multilevel disc degeneration with associated osteoarthritic changes resulting in neural foraminal stenosis extending from L2-L3 to L5-S1 and worse at the L4-L5 and L5-S1 regions.
== END | disposition home or self-care (01) ==
LOC: RADMRIMAIN 16:22
PROVIDERS: ATTEND Orthopaedic Surgery
DX: M51.16 Intervertebral disc disorders with radiculopathy, lumbar region (principal); M72.6 Necrotizing fasciitis; M99.73 Connective tissue and disc stenosis of intervertebral foramina of lumbar region; M43.26 Fusion of spine, lumbar region
CPT/HCPCS: 72148

== ENCOUNTER → 2022-06-06 | Outpatient (CLI) | payer MEDICARE, OTHER ==
[2022-06-06 15:17] LABS: Anion Gap 8.8 mmol/L (10.00-18.00); Carbon Dioxide 28.2 mmol/L (20.0-27.5)
[2022-06-06 15:35] LABS: Basophils # (A) 0.05 X 10*3/uL (0.00-0.10); Basophils % (A) 0.7 %; Eosinophils # (A) 0.17 X 10*3/uL (0.04-0.35); Eosinophils % (A) 2.5 %; HCT 42.4 % (39.6-50.0); HGB 13.6 g/dL (13.0-17.0); Immature Grans, Automated 0.3 %; Lymphocytes # (A) 1.76 X 10*3/uL (0.90-5.00); Lymphocytes % (A) 26.2 %; MCH 30.4 pg (27.0-32.0); MCHC 32.1 g/dL (32.0-37.0); MCV 94.9 fL (80.0-97.0); Mean Platelet Volume 9.8 fL (9.5-12.2); Monocytes # (A) 0.94 X 10*3/uL (0.20-1.00); NRBC Per 100 WBC 0 /100 WBCS (0.0-0.0); Neutrophils # (A) 3.79 X 10*3/uL (1.80-7.70); Neutrophils % (A) 56.3 %; Platelet Count 225 X 10*3/uL (140-440); RBC 4.47 X 10*6/uL (4.40-5.60); RDW 14.2 % (11.5-14.5); WBC 6.73 X 10*3/uL (4.50-10.00)
== END | disposition home or self-care (01) ==
LOC: LABPAT 11:06
PROVIDERS: ATTEND Orthopaedic Surgery Hand Surgery
DX: Z01.812 Encounter for preprocedural laboratory examination (principal); G56.01 Carpal tunnel syndrome, right upper limb; G56.21 Lesion of ulnar nerve, right upper limb
CPT/HCPCS: 36415; 80051; 85025

== ENCOUNTER 2022-06-20 11:47 | Day surgery (SDC) | payer MEDICARE, OTHER ==
[2022-06-15 12:24] VITALS: BMI 31.4
--- NOTE | 2022-06-18 08:57 | P.HPOR ---
History of Present Illness H&P Date: 06/18/22 Subjective: This is a 55 year old male that presents today for follow up evaluation regarding a several year history of bilateral hand paresthesias and weakness that have progressively worsened over the past 9 months. He has tried night bracing and steroid injections with little relief. He denies any injury or inciting event He recently underwent cervical ACDF and has noticed less radiculopathy pains down the arm but the hands still go numb daily. He responded well to a left endoscopic carpal tunnel release/open cubital tunnel release recently. Physical Examination: RUE: AIN/PIN/Radial/Ulnar/Median motor intact. Radial/Ulnar/Median SILT. 2+/4 Radial/Ulnar pulses palpated. 5/5 APB, 5/5 FDI. Negative Finkelsteins, negative CMC grind, positive Durkan's compression, numbness in small and ring finger with prolonged elbow flexion. EMG/NCV: Left and right carpal/cubital tunnel syndrome Impression: 1.) Right carpal tunnel syndrome 2.) Right cubital tunnel syndrome Plan: Diagnosis and treatment options were discussed with the patient. He has failed conservative treatment for his symptoms and is scheduled for right endoscopic vs.open carpal tunnel release and right open cubital tunnel release Risks and benefits of surgery including bleeding, infection, damage to surrounding tissue, need for further surgery, possible need to convert to open procedure, residual numbness were discussed and the patient wished to go forward with surgery. -Erick Sue DO Orthopedic Hand/Upper Extremity Surgeon Past Medical History Past Medical History: COPD, Hypertension, Osteoarthritis (OA), Pneumonia Additional Past Medical History / Comment(s): Hx ETOH abuse, past withdrawal per pt with shaking/nausea and diarrhea, pancreatitis, diverticulitis, chronic cervical/back pain/DDD and cervical spondylosis, hx bronchitis., hx of covid 05/2019 with pneumonia., states palms of hands red on side and hands get cold. History of Any Multi-Drug Resistant Organisms: None Reported Date of last positivie culture/infection: 2005 MDRO Source:: stool Past Surgical History: Bowel Resection Additional Past Surgical History / Comment(s): Bowel resection with 10 inches removed d/t diverticulitis, colonoscopy, benign lump removed from scrotum, bilateral rotator cuff repair, pain clinic procedures., 03/21/22 left CTR and left cubital tunnel release. Past Anesthesia/Blood Transfusion Reactions: No Reported Reaction Past Psychological History: Anxiety, Bipolar, Depression Additional Psychological History / Comment(s): . Smoking Status: Current every day smoker Past Alcohol Use History: Abuse, Daily, Heavy Additional Past Alcohol Use History / Comment(s): Started smoking in 1982 and is a 1 ppd smoker. Used to drink 1/5 and a few beers per day, last alcohol may 24, 2022 Past Drug Use History: Marijuana Additional Drug Use History / Comment(s): Occasional Marijuana. Aware no alcohol or Marijuana 24 hrs prior to procedure. - Past Family History Father Family Medical History: Congestive Heart Failure (CHF) Additional Family Medical History / Comment(s): Father was healthy. Mother Family Medical History: Congestive Heart Failure (CHF) Medications and Allergies Home Medications Medication Instructions Recorded Confirmed Type Mirtazapine [Remeron] 15 mg PO HS 30 Days tab 05/24/21 06/15/22 Rx allopurinoL 100 mg PO DAILY 11/06/21 06/15/22 History tiZANidine [Zanaflex] 4 mg PO TID PRN 11/06/21 06/15/22 History Albuterol Inhaler [Ventolin Hfa 2 puff INHALATION RT-QID 12/08/21 06/15/22 History Inhaler] Sertraline [Zoloft] 150 mg PO DAILY 12/08/21 06/15/22 History Rosuvastatin [Crestor] 10 mg PO DAILY 12/18/21 06/15/22 History hydrALAZINE HCL [Apresoline] 25 mg PO BID #60 tab 12/22/21 06/15/22 Rx HYDROcodone/APAP 7.5-325MG [[place] 1 tab PO TID PRN 03/08/22 06/15/22 History 7.5-325] Losartan [Cozaar] 50 mg PO DAILY 03/08/22 06/15/22 History busPIRone HCL 15 mg PO BID 03/08/22 06/15/22 History Gabapentin [Neurontin] 600 mg PO TID 03/20/22 06/15/22 History Metoprolol Tartrate [Lopressor] 25 mg PO BID 03/20/22 06/15/22 History Allergies Allergy/AdvReac Type Severity Reaction Status Date / Time clonidine [From Catapres] AdvReac Vomiting Verified 06/15/22 11:50 Physical Examination Osteopathic Statement: *. No significant issues noted on an osteopathic structural exam other than those noted in the History and Physical/Consult.
[~2022-06-20 11:47] MED LIST changes: -ACETAMINOPHEN TAB 500 MG TAB PO PRN; +DEXAMETHASONE SOD PHOSPHATE 4 MG/ML 1 ML VIAL IV ONE; -GABAPENTIN 300 MG CAP PO PRN; +HYDROmorphone 0.5 MG/0.5 ML SYRINGE IVP PRN; +LACTATED RINGERS 1,000 ML IV SCH; +LIDOCAINE 1% (10MG/ML) FOR IV START INTRADERMA PRN; +MIDAZOLAM 2 MG/2 ML VIAL IV PRN; +ONDANSETRON 4 MG/2 ML VIAL IVP ONE; -ONDANSETRON 4 MG/2 ML VIAL IVP PRN; -TRANEXAMIC ACID IN NACL,ISO-OS 1,000 MG in SALINE 1 100ML.BAG IVPB PRN
[2022-06-20] MEDS ORDERED: MIDAZOLAM 2 MG/2 ML VIAL IVP ONE (12:25)
[2022-06-20] MEDS ORDERED: fentaNYL (PF) 50 MCG/ML 2 ML AMP IVP ONE (12:51)
[2022-06-20] MEDS ORDERED: fentaNYL (PF) 50 MCG/ML 2 ML AMP ONE (13:42)
[2022-06-20] MEDS ORDERED: PROPOFOL 10 MG/ML 20 ML VIAL IV ONE (13:42)
[2022-06-20] MEDS ORDERED: MIDAZOLAM 2 MG/2 ML VIAL ONE (13:42)
[2022-06-20] MEDS ORDERED: LIDOCAINE 2% INJ 20 MG/ML (2 ML VIAL) ONE (13:42)
[2022-06-20] MEDS ORDERED: BUPIVACAINE (PF) 0.5% 30 ML VIAL SQ ONE (14:28)
[2022-06-20 14:53] VITALS: TEMP 97.6
--- NOTE | 2022-06-20 15:00 | P.OP ---
Date of Procedure: 06/20/22 Preoperative Diagnosis: 1.) Right carpal tunnel syndrome 2.) Right cubital tunnel syndrome Postoperative Diagnosis: 1.) Right carpal tunnel syndrome 2.) Right cubital tunnel syndrome Procedure(s) Performed: 1.) Right endoscopic carpal tunnel release 2.) Right open cubital tunnel release, in situ Anesthesia: ANDREW Surgeon: Erick Sue Seed Buyer #1: Colton Alicia Estimated Blood Loss (ml): 0 Pathology: none sent Condition: stable Disposition: PACU Description of Procedure: This is a 56 year old male who presented today for a right endoscopic carpal tunnel release and open cubital tunnel release after having failed conservative treatment. Risks and benefits of surgery were discussed with the patient including bleeding, damage to surrounding tissue, infection, need for further surgery as well as risks of anesthesia including pulmonary embolism and even and the patient wished to proceed with surgical intervention. The patient was seen in the pre-operative area by myself. Consent and H&P were completed and updated. The correct extremity was marked in the pre-operative area by myself and all other questions were answered. Operative Narrative: The patient was brought to the operating room by the department of anesthesia. They remained on the portable stretcher and a rolling hand table was brought to the side of the operative extremity. Pre-operative time out was performed indicating the correct patient, procedure and laterality. All in the room agreed. Pre-operative antibiotics were given prior to skin incision. The patient was then drifted off to sleep by the department of anesthesia. A nonsterile tourniquet was then applied to the operative extremity and the right upper extremity was then prepped and draped in normal sterile fashion. The operative extremity was the exsanguinated with an esmarch bandage and the tourniquet was inflated to 250mmHg. 15 blade scalpel was utilized to make a transverse incision on the palmar skin just ulnar to the palmaris longus tendon at the level of the distal wrist crease. Ragnell retractor was then placed radially and blunt dissection was performed to reveal the distal forearm fascia. This was lifted with fine [place] pick ups and Littler tenotomy scissors were then used to open the forearm fascia transversely and a double skin hook was then placed. Hamate finder was placed into the carpal tunnel and then sequential sized dilators were inserted followed by the synovial elevator to separate the flexor tenosynovium from the undersurface of the transverse carpal ligament and a washboard texture was felt. The [employer] endoscopic carpal tunnel release system gun was the then inserted into the carpal tunnel hugging the deep portion of the transverse carpal ligament in line with the base of the ring finger. Transverse fibers of the ligament were directly visualized. Pressure was applied on the palm to reveal the distal extent of the transverse carpal ligament. The blade was then deployed and the distal half of the transverse carpal ligament was released. The scope was then brought distal again and remaining transverse fibers were incised with the blade. The proximal half of the transverse carpal ligament was then divided and again the scope was advanced distal and remaining transverse fibers were incised with the blade. The radial and ulnar leaflets were directly visualized and mobile consistent with complete release. Tenotomy scissors were then utilized to release the remaining distal forearm fascia under direct visualization taking care to preserve the palmar cutaneous branch of the median nerve. Attention was brought to the medial elbow. 15 blade scalpel was used to incise skin in between the medial epicondyle and olecranon in a curvlinear and longitudinal fashion. Blunt dissection was taken down through subcutaneous tissue with tenotomy scissors and branches of the MABCN were identified and protected. Dissection was carried proximally and the ulnar nerve was identified and released in it's entirety to the the intermuscular septum. Dissection was then carried distally and quijano's ligament was released at the medial epicondyle, the nerve appeared compressed at this location. Dissection was then carried out further distal and the fascia of the two heads of the FCU were incised and the ulnar nerve was decompressed with Zofia and tenotomy scissors and appeared to be tension free. The elbow was the flexed and extended and the ulnar nerve appeared to be stable in a tension free manner . 0.5% bupivacaine was injected into the subcutaneous tissues. Skin closure was performed with interrupted 4-0 Monocryl sutures followed by 4-0 Nylon sutures, sterile soft dressing with adaptic, fluffs and sarah beth wrap was applied, tourniquet was then let down and the hand had immediate perfusion. The patient was then woken by the department of anesthesia and transferred to PACU in stable condition. Colton DUNCAN was present for major portions of the case and protection of vital neurovascular structures. Erick Sue D.O. Orthopedic Hand/Upper Extremity Surgeon
[2022-06-20 15:28] VITALS: RESP 20
[2022-06-20] MEDS ORDERED: oxyCODONE-APAP 5-325MG 1 EACH TAB ONE (15:32)
[2022-06-20] MEDS ORDERED: oxyCODONE-APAP 5-325MG 1 EACH TAB PO ONE (15:34)
[2022-06-20 16:03] VITALS: BP 103/67; PULSE 60
== END 2022-06-20 16:16 | disposition home or self-care (01) ==
LOC: OR 11:47
PROVIDERS: ATTEND Orthopaedic Surgery Hand Surgery
DX: G56.01 Carpal tunnel syndrome, right upper limb (principal); G56.21 Lesion of ulnar nerve, right upper limb; J44.9 Chronic obstructive pulmonary disease, unspecified; I10 Essential (primary) hypertension; F41.9 Anxiety disorder, unspecified; F32.A Depression, unspecified; M19.90 Unspecified osteoarthritis, unspecified site; F17.210 Nicotine dependence, cigarettes, uncomplicated; Z86.59 Personal history of other mental and behavioral disorders; F12.90 Cannabis use, unspecified, uncomplicated; Z82.49 Family history of ischemic heart disease and other diseases of the circulatory system; Z98.890 Other specified postprocedural states; Z79.899 Other long term (current) drug therapy

== ENCOUNTER → 2022-09-25 | Outpatient (CLI) | payer MEDICARE, OTHER ==
--- NOTE | 2022-09-25 18:11 | CT ---
EXAMINATION TYPE: CT lumbar spine wo con DATE OF EXAM: 09/25/2022 COMPARISON: None HISTORY: SPONDYLOSIS WITH RADICULOPATHY, lumbar region CT DLP: 894.7 mGycm CONTRAST: None TECHNIQUE: CT of the lumbar spine is performed on a spiral scan at 3 mm thick sections. Reconstructed images are performed in the coronal and sagittal planes. FINDINGS: T10-11:No focal disc herniation or significant disc bulge is evident. No spinal canal stenosis or n eural foraminal stenosis is present. T11-12:No focal disc herniation or significant disc bulge is evident. No spinal canal stenosis or n eural foraminal stenosis is present. T12-L1: No focal disc herniation or significant disc bulge is evident. No spinal canal stenosis or neural foraminal stenosis is present. L1-L2: Mild broad-based disc bulge has mild anterior thecal sac compression. No AP spinal canal steno sis is present. There is some mild facet hypertrophy. Neural foramen are patent. L2-L3: No focal disc herniation or significant disc bulge is evident. No spinal canal stenosis or n eural foraminal stenosis is present. Mild facet degenerative changes present L3-L4: Broad-based disc bulge is present. This has moderate anterior thecal sac flattening. Borderlin e spinal canal narrowing is present. Facet hypertrophy and ligamentum flavum laxity is present. Moder ate bilateral foraminal stenosis is present. L4-L5: Broad-based disc bulge is present. Posterior longitudinal ligament calcification is present. N o AP spinal canal stenosis present. This been prior laminectomy. Some mild facet degenerative changes present. Severe left and moderate to severe right foraminal stenosis is present. There is posterior disc space narrowing. L5-S1: There is loss of disc height at this level. No AP spinal canal stenosis is present. Moderate t o severe bilateral foraminal stenosis is present. Vertebral alignment appears normal. IMPRESSION: 1. Mild spinal canal narrowing L3-4 secondary to moderate broad-based disc bulging and facet hypertro phy. 2. Disc bulging without spinal canal stenosis L4-5. 3. Multilevel foraminal stenosis appears severe L4-5 and L5-S1 with more moderate foraminal stenosis L3-4.
== END | disposition home or self-care (01) ==
LOC: RADCTMAIN 14:42
PROVIDERS: ATTEND Orthopaedic Surgery
DX: M47.26 Other spondylosis with radiculopathy, lumbar region (principal); M51.16 Intervertebral disc disorders with radiculopathy, lumbar region; M99.73 Connective tissue and disc stenosis of intervertebral foramina of lumbar region
CPT/HCPCS: 72131

== ENCOUNTER → 2022-10-18 | Outpatient (CLI) | payer MEDICARE, OTHER | END | disposition home or self-care (01) | LOC: LABPAT 10:21 | PROVIDERS: ATTEND Nurse Practitioner Adult Health | DX: Z01.812 Encounter for preprocedural laboratory examination (principal); Z22.322 Carrier or suspected carrier of Methicillin resistant Staphylococcus aureus; M47.816 Spondylosis without myelopathy or radiculopathy, lumbar region; M48.061 Spinal stenosis, lumbar region without neurogenic claudication | CPT/HCPCS: 87070 ==

== ENCOUNTER 2022-10-25 10:08 | Inpatient (IN) | payer MEDICARE, OTHER ==
[2022-10-19 13:49] VITALS: BMI 29.8
--- NOTE | 2022-10-25 09:40 | P.HPOR ---
History of Present Illness H&P Date: 10/18/22 Chief Complaint: Low back pain, LE weakness .D:Date: 10/18/22 : 03:56pm .T:Title: *[facility] PR[facility]... COPY... Date of :[birth year] R14 Allergies: Age: 57 year Height: 5'6" Weight: 195 lbs BP:121/74 BMI: 31.47 kg/m2 Occupation: Disabled VAS: 9 CHIEF COMPLAINT: Low back pain DOI: Chronic DOS: 12/12/2021 (ACDF) / 12/19/2021 (I&D) Duration of current treatment regiment:> 1 year HISTORY: Xrays New xrays taken in office Trauma or injury No Work-Related No Pain description Aching, throbbing, & increasing Location Diffuse Patient notes that their pain radiates to bilateral lower extremities Activity Modification Yes Hand Dominance Right TREATMENTS COMPLETED: 6 weeks of PT completed? Month and Year of last PT date? Yes How many sessions? 12 Did it help? No Physician directed home exercise completed? Yes, patient has trialed the physician directed home exercise program for without relief of their symptoms. Medications Yes List: [place], Aspirin Alternative interventions Chiropractic:No Massage therapy:No R.I.C.E:Yes Brace:No Injections Yes How many? 1 Did they help? No RFA:Yes with no relief SUBJECTIVE: Mr. Galan returns to the office for a pre-operative appointment for his L4- S1 open posterior lumbar interbody fusion. Since last visit patient states his pain has increased and that he is in a lot of pain today. Patient continues to report an ache-like, throbbing pain throughout the low back that radiates down into the bilateral lower extremities. The patient notes that his lower extremity pain is associated with numbness and tingling. The patient states that his current symptoms are exacerbated by all activity, which makes it very difficult for him to complete many of his activities of daily living. The patient has been experiencing severe sleep disturbances due to his ongoing pain and associated symptoms. The patient notes that is symptoms have started to significantly affect his overall quality of life. The patient has trialed conservative treatment measures in the form of physical therapy, at home stretches/exercises, activity modification, at home heat/ice therapies, lumbar epidural steroid injections, an RFA, and medication management all with no significant or sustained relief. The patient is currently taking [place] and Aspirin without resolution of symptoms. Otherwise the patient denies any f/c/sob/cp, no incision concerns, no bladder or bowel retention/incontinence, no perineal numbness/t ingling, and ambulates independently. HPI: Mr. Galan presents to the office for an evaluation of their low back pain. The patient reports experiencing an ache-like, throbbing pain throughout the low back that radiates down into the bilateral lower extremities. The patient notes that his lower extremity pain is associated with numbness and tingling. The patient states that his pain has been worsening over the last several months. The patient states that his current symptoms are exacerbated by all activity, which makes it very difficult for him to complete many of his activities of daily living. The patient has been experiencing severe sleep disturbances due to his ongoing pain ans associated symptoms. The patient notes that is symptoms have started to significantly affect his overall quality of life. The patient has trialed conservative treatment measures in the form of physical therapy, at home stretches/exercises, activity modification, at home heat/ice therapies, lumbar epidural steroid injections, an RFA, and medication management all with no significant or sustained relief. The patient is currently taking Gabapentin, [place], Ibuprofen, and Tizanidine with very minimal relief. Otherwise the patient denies any f/c/sob/cp, no incision concerns, no bladder or bowel retention/incontinence, no perineal numbness/tingling, and ambulates independently. The patients' past social, medical, family, surgical history, as well as review of systems, have been reviewed. Please refer to the Neurosurgery History and Physical form that has been scanned in to our electronic medical record system. 14 points review of systems completed and as stated in HPI, all other systems reviewed are negative. Social History: [id number]:current smoker P3 Smoking Amount:1 PPD Alcohol:none Family History: D2Ckgibf: P2 Father: Sibling(s):alive & well. and 1 Family History: coronary artery disease Past Medical History: DEPRESSION Surgical / Procedural History: BOWEL RESECTION LAMINECTOMY RIGHT SHOULDER ARTHROSCOPY Current Medications: P1Rx: allopurinoL 100 mg tablet Ref: 0 Rx: IBU 800 mg tablet Ref: 0 Rx: losartan 50 mg tablet Ref: 0 Rx: metoprolol tartrate 25 mg tablet Ref: 0 Rx: rosuvastatin 10 mg tablet Ref: 0 Rx: sertraline 100 mg tablet Ref: 0 Rx: tiZANidine 4 mg tablet Ref: 0 Rx: gabapentin 600 mg tablet Ref: 0 Rx: hydrALAZINE 25 mg tablet Ref: 0 Rx: HYDROcodone 7.5 mg-acetaminophen 325 mg tablet Ref: 0 Rx: mirtazapine 15 mg tablet Ref: 0 Rx: pantoprazole 40 mg tablet,delayed release Ref: 0 P1 PHYSICAL EXAMINATION: General:Awake, alert, appropriate for age, in no acute distress. HEENT:No unusual neck masses around region of lateral neck triangle, thyroid, supraclavicular groove Heart:Regular rate and rhythm, normal S1, S2 and no murmur/gallop. Lungs:Clear to auscultation bilaterally with no use of accessory muscles. Extremities:Skin warm and dry without acute lesions, coloration, temperature, skin intact, no tenderness or erythema Integument: Hairy patches: ABSENT Dorsal skin dimples:ABSENT Cafe au lait spots:ABSENT Surgical incisions: Healed well Palpation: Please see Pain drawing on Intake sheet for further detail. Midline spinal tenderness: No E6 Cervical Tenderness: No E6 Paralumbar tenderness: No E6 Parathoracic tenderness: No E6 Buttocks tenderness: No E6 Sacroiliac Tenderness:No POSTURAL and MUSCULO-SKELETAL EVALUATION: Coronal Balance: NEUTRAL Recumbent testing: Patient is able to lay flat on back Sagittal Balance: NEUTRAL Shoulder Profile: LEVEL Pelvic Girdle: LEVEL Neck ROM: RESTRICTED Lumbar ROM: RESTRICTED Shoulder ROM: Symmetrical Hip ROM: Symmetrical Knee ROM: Symmetrical Hands: Normal appearance, symmetrical Feet: Normal appearance, Symmetrical VASCULAR STATUS : LEFT RIGHT Wrist Pulses INTACT INTACT Pedal Pulses (Dors. pedis & post.tibialis) INTACT INTACT Color NORMAL NORMAL Edema Absent Absent NEUROLOGIC EXAMINATION: Mental Status:Awake and alert, fully oriented, with normal attention, concentration and memory, and fluent, appropriate speech. Cranial Nerves: I: Olfactory not tested. II: Visual acuity normal, no visual field deficit noted with confrontation. III,IV: Normal pupillary reflexes & intact extraocular movements without nystagmus. V,: Intact symmetrical facial sensation. VII: Intact symmetrical facial motor movement VIII: Hearing intact. IX,X: Intact gag, swallow, & normal voice. XI: Sternocleidomastoid, trapezius function intact. XII: Tongue midline with normal movements. L'hermitte's Sign:Negative / absent Spurling'Sign:Absent bilaterally. Cubital percussion test: Absent bilaterally. Beckham-Tinel sign - Carpal region:Absent bilaterally. Straight Leg Raising:Absent bilaterally. 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 yes LOWER EXTREMITY RIGHT LEFT Hip Flexion 4/5 4/5 Knee Extension 4/5 4/5 Knee Flexion 4/5 4/5 Dorsiflexion 4/5 4/5 Plantarflexion 4/5 4/5 EHL 4/5 4/5 FHL 4/5 4/5 Toe heel walk / heel-toe walk intact while maintaining satisfactory balance? yes Squatting/straightening w/o assistance to a min of 60 degree knee flexion? yes Single leg stance: intact Trendelenburg sign negative bilaterally REFLEXES(0-4/2, NT)Upper ExtremityLower Extremity Right 2 2 Left 2 2 Pathological Reflexes RIGHT LEFT Beckham's Absent Absent Clonus Absent Absent Babinski Absent Absent Sensory system (0-4, N/T) Test type RU XOCHILT RL LL Joint-Position 2 2 2 2 Vibration 2 2 2 2 Pain & LT sense 2 2 2 2 Dermatomal Deficit: None None None None Gait and Functional Evaluation: Ambulatory aids: Independent Romberg's test: Intact bilaterally Steady Gait RADIOGRAPHIC STUDIES: No new x-rays taken in office today. [facility]: IMages reviewed Multilevel spondylotic changes noted with post sugical changes at L4-5 where previous central decompression done. There is disc height loss and dessication L3-S1. There is facet arthropathy at these levels as well. No fracture No lesions. Flattened LL. 09/01/22 CT Chest abd/pelvis reviewed: This demonstrates Vacuum disc L4-5 and L5-S1 with spondylosis, facet arthrosis and stenosis related to these findings. No fractures noted. Flattened LL noted due to the collapse at these levels. IMPRESSION: It was my pleasure to have seen and examined Medardo. I reviewed the patient's clinical syndrome, physical findings, and imaging studies during the appointment today. It is my impression that the patient has a diagnosis of. 1. L4-S1 spondylosis with stenosis 2. L4-S1 disc degeneration 3. Lower extremity radiculopathy 4. Lower extremity weakness 5. S/P L4-5 laminectomy I outlined the natural course history without intervention and various int erventional options. PLAN: Based on my findings I suggest the following course of action: -I discussed treatment options with the patient, including operative and non- operative options, and they have elected to proceed with the following surgical procedure: L4-S1 open posterior lumbar interbody fusion The indications, risks, benefits, and alternatives to surgery were discussed with the patient and family at length. Specifically (but not limited to) the risks of infection, stiffness, recurrence of symptoms, need for revision surgery, local numbness, neurovascular injury, and blood clots were discussed. The patient's questions were answered. The decision to proceed was made. Consent will be obtained for the procedure. - Ambulate daily. - Take medications as directed. - Ice and rest for pain and swelling control. Spine Surgery Risk Review Mr. Galan is presenting for evaluation of low back pain and bilateral lower extremity pain, bilateral lower extremity numbness and tingling. It was my pleasure to have seen and examined Mr. Galan. In our visit today we have had a chance to go over subjective complaints, physical examination findings and treatments including the natural course history without intervention and various interventional options. The patients imaging demonstrates: [facility] of lumbar spine: IMages reviewed Multilevel spondylotic changes noted with post sugical changes at L4-5 where previous central decompression done. There is disc height loss and dessication L3-S1. There is facet arthropathy at these levels as well. No fracture No lesions. Flattened LL. 09/01/22 CT Chest abd/pelvis reviewed: This demonstrates Vacuum disc L4-5 and L5-S1 with spondylosis, facet arthrosis and stenosis related to these findings. No fractures noted. Flattened LL noted due to the collapse at these levels. On physical exam, Mr. Galan demonstrates: The patient reports experiencing an ache-like, throbbing pain throughout the low back that radiates down into the bilateral lower extremities. The patient notes that his lower extremity pain is associated with numbness and tingling. The patient states that his pain has been worsening over the last several months. The patient states that his current symptoms are exacerbated by all activity, which makes it very difficult for him to complete many of his activities of daily living. The patient has been experiencing severe sleep disturbances due to his ongoing pain ans associated symptoms. The patient notes that is symptoms have started to significantly affect his overall quality of life. I have explained to the patient that as their condition progresses it will cause further neurological deficits and eventual paralysis. Based on the patients imaging, physical exam, and the rapid progression and disabling nature of their symptoms, at this time I recommend surgery in the form of a: L4-S1 open PLIF. I discussed the risk and benefits of this procedure at length with Mr. Galan. The patient agreed to considered pursuing the procedure above mentioned. Prior to surgery, she should follow up with her PCP (Cardio, ID, IM etc) for clearance. Questions were invited and answered, and the patient wishes to proceed as outlined below. Currently, I am recommendin. L4-S1 open PLIF 2.Follow up with PCP for surgical clearance 3.Review of surgical risks and benefits as well as an educational packet on the proposed surgical procedure. Risks: All surgical procedures come with inherent risks, including those related to positioning, anesthesia, intraoperative findings, and postoperative complications. It is important to understand that surgery does not come with any guarantee of a successful outcome as complications and adverse events are always possible. The patient was given a handout in office today discussing the surgical procedure and risks associated with the intervention, both of which were discussed with the patient. These risks include but are not limited to the following: * Experiencing same, different or even worse symptoms in back, neck, arms, or legs compared to before surgery. Requiring further surgery or other forms of treatment presently or at some time in the future at same or other levels of the intended spine surgery. On an extreme but fortunately relatively rare basis severe complication such as blindness, stroke, heart attack, temporary and/or permanent nerve injury, paralysis, coma, or may occur, sometimes without known explanation. Surgical complications may include but are not limited to risk of infection, fluid accumulation in the surgical dissection site, including a seroma or hematoma, that requires additional surgery, wound drainage, bleeding, new numbness or weakness, vision changes/loss, spinal fluid leakage, non-healing and/or infected incision, headaches, difficulty or inability to swallow, hoarseness, hemopneumothorax, pneumothorax, impotence, retrograde ejaculation, vaginal dryness; injury to nerves, spinal cord, blood vessels, lymphatics or other vital organs (i.e., bowel injury, injury to the great vessels); heterotopic bone formation; complications related to the hardware such as screws, rods, cages including misplaced hardware, device failure, instrumentation at the wrong spine level, hardware fracture/breakage, or hardware loosening; vertebral failure of the spinal column above or below the newly placed hardware; retained surgical instrumentations or devices and the need for further surgery. * Medical risks of the planned spine surgery include but are not limited to generalized Infections to the whole body or local areas outside of the surgical site (sepsis), heart attack, bleeding, anaphylaxis, meningitis, seizure, epilepsy, hearing loss, burn bassett, laceration of the head or other areas of the body, bruising, hypersensitivity of the skin, bladder over distension; allergic reaction; shoulder injury related to positioning; fat, blood and air clots to other areas of the body like heart, lungs, brain; failure of internal organs such as lungs, kidneys, liver and excessive bleeding. If blood transfusions are necessary, note that transfusions may cause intolerance reactions such as anaphylaxis or other complex reactions. Despite best efforts, the results of spine surgery might not heal in terms of bone, soft tissues such as skin, fascia, ligaments, and joints. Additionally, in order to achieve best possible results, spine surgery may be carried out beyond the initially planned levels and involve decompression, fusion including insertion of hardware at levels other than the original intended area of surgical interest change some portions of the procedure in order to ensure the best possible outcomes. With spine surgery and spinal fusion, there are different off label uses of instrumentation (devices, implants and hardware) as well as biological substances (bone morphogenic proteins, demineralized bone matrix) as well as using extra bone from allograft sources (i.e. cadaver bone) or autograft (iliac crest bone, ribs, or the spine itself). The patient has been given information about these practices and their inherent risks and benefits. [facility] is an educational center that serves as a training facility for neurosurgical and orthopedic AUTOMATED CUTTING MACHINE OPERATOR and Nursing students. Physician assistants are medically trained surgical providers who function in the outpatient, inpatient, and operating room setting under the direct supervision of the attending surgeon. [facility] has multiple operating rooms with single and overlapping rooms running daily. They currently function under the required guidelines as produced by the [facility] with regards to the overlapping rooms and will continue to comply with changes to this policy as they occur. The requirements include and are complied with as follows: (1) the critical portions of the overlapping rooms will not occur at the same time, (2) the attending physician will be physically present during the critical portions of the procedure and immediately available during the entire case, and (3) a back-up attending is designated should the primary attending not be immediately available. The patient has had a chance to review all the listed information, has been given print outs detailing this information, and has had all his/her questions answered to their satisfaction. It was my pleasure to have seen and examined Mr. Galan. In our visit today we have had a chance to go over my understanding of our patient's current condition, the natural course history without intervention and various interventional options. Questions were invited and answered, and the patient wishes to proceed as outlined above. I have seen and examined the patient for 25 minutes and we have spent more than 50% of the time in repeat and detailed counseling about the patient's condition, its natural course history with out a nd as much as can be predicted with surgery and re-review of various surgical treatment options. In conclusion, Mr. Galan requested we proceed with the above suggested surge ry and are willing to accept risks and limitations of the suggested surgery as nature of the disease process and our best attempts at treatment for the condition. Thank you again for allowing us to be part of your patient's care. Please don't hesitate to contact me if you have any further questions. Follow-up: DEL Post procedure 1month 6wks 3 months 6 months 1 year Patient Education: (Informational booklet, instructions, etc) given at today's appointment: DEL Yes .ED:Patient Education: Y Medications Reviewed: YES In our visit today Mr. Galan and I have had a chance to go over my understanding of the patient's current condition, the natural course history without intervention and various interventional options. Questions were invited and answered, and the patient wishes to proceed as outlined above. I will be sure to keep you updated afterMrCaro Galan returns here for further follow-up. Thank you again for your referral. Please do not hesitate to contact me if you have any further questions. Signed and authenticated by: REGINALDO Gotti [facility] [address], [address] [place] [address] This message is confidential, intended only for the named recipient(s) and may contain information that is privileged or exempt from disclosure under applicable law. If you are not the intended recipient(s), you are notified that the dissemination, distribution or copying of this information is strictly prohibited. If you received this message in error, please notify the sender then delete this message. Patient verbalizes understanding of the information discussed. The above note was initiated by Noel Flowers, physician recording senior underwriting assistant for Dr. Dallin Sparks. This note has been reviewed by Dr. Sparks, who has made his personal changes and impressions for this document. CC: Florencio Goodman M.D. Past Medical History Past Medical History: COPD, Hyperlipidemia, Hypertension Additional Past Medical History / Comment(s): Hx ETOH abuse -hospitalized August 2022 with withdrawal & dt's., hx pancreatitis, diverticulitis with bowel resection., occasional diarrhea., chronic cervical/back pain/DDD and cervical spondylosis, bronchitis., gout History of Any Multi-Drug Resistant Organisms: None Reported Date of last positivie culture/infection: 2005 MDRO Source:: stool Past Surgical History: Back Surgery, Bowel Resection, Orthopedic Surgery Additional Past Surgical History / Comment(s): Bowel resection with 10 inches removed d/t diverticulitis, colonoscopy, hx c-diff 2005., benign lump removed from scrotum, left rotator cuff repair, right rotator cuff repair x2., pain clinic procedures., carpal tunnel on wrists and elbow heather., cervical fusion Nov 2021. Past Anesthesia/Blood Transfusion Reactions: No Reported Reaction Past Psychological History: Anxiety, Bipolar, Depression Additional Psychological History / Comment(s): . Smoking Status: Current every day smoker Past Alcohol Use History: Abuse, Daily, Heavy Additional Past Alcohol Use History / Comment(s): Started smoking in 1979 and is a 1 ppd smoker. Drinks appox 1/5 of liquor and a six-pack of beers per day, last 08/30/22 Past Drug Use History: Marijuana Additional Drug Use History / Comment(s): current marijuana use - Past Family History Father Family Medical History: Congestive Heart Failure (CHF) Additional Family Medical History / Comment(s): Father was healthy. Mother Family Medical History: Congestive Heart Failure (CHF) Medications and Allergies Home Medications Medication Instructions Recorded Confirmed Type Mirtazapine [Remeron] 15 mg PO HS 30 Days tab 05/24/21 10/19/22 Rx allopurinoL 100 mg PO DAILY 11/06/21 10/19/22 History tiZANidine [Zanaflex] 4 mg PO TID 11/06/21 10/19/22 History Sertraline [Zoloft] 150 mg PO DAILY 12/08/21 10/19/22 History Rosuvastatin [Crestor] 10 mg PO DAILY 12/18/21 10/19/22 History hydrALAZINE HCL [Apresoline] 25 mg PO BID #60 tab 12/22/21 10/19/22 Rx HYDROcodone/APAP 7.5-325MG [[place] 1 tab PO TID PRN 03/08/22 10/19/22 History 7.5-325] Losartan [Cozaar] 50 mg PO DAILY 03/08/22 10/19/22 History busPIRone HCL 15 mg PO BID 03/08/22 10/19/22 History Metoprolol Tartrate [Lopressor] 25 mg PO BID 03/20/22 10/19/22 History Gabapentin 600 mg PO TID 09/01/22 10/19/22 History Albuterol Sulfate (Bottle) 2.5 mg INHALATION QID 10/19/22 10/19/22 History [Ventolin] Aspirin [Adult Low Dose Aspirin EC] 81 mg PO DAILY 10/19/22 10/19/22 History Fluticasone/Umeclidin/Vilanter 1 inhalation INHALATION DAILY 10/19/22 10/19/22 History [Trelegy Ellipta 100-62.5-25] Ibuprofen [Motrin] 800 mg PO Q8H PRN 10/19/22 10/19/22 History Multivitamins, Thera [Multivitamin 1 tab PO DAILY 10/19/22 10/19/22 History (formulary)] Allergies Allergy/AdvReac Type Severity Reaction Status Date / Time clonidine [From Catapres] AdvReac Vomiting Verified 10/19/22 13:12 Physical Examination Osteopathic Statement: *. No significant issues noted on an osteopathic structural exam other than those noted in the History and Physical/Consult.
[~2022-10-25 10:08] MED LIST changes: +ACETAMINOPHEN TAB 500 MG TAB PO PRN; +GABAPENTIN 300 MG CAP PO PRN; -LACTATED RINGERS 1,000 ML IV SCH; -MIDAZOLAM 2 MG/2 ML VIAL IV PRN; +ONDANSETRON 4 MG/2 ML VIAL IVP PRN; +TRANEXAMIC 1,000 MG/100ML-NACL 1,000 MG in SALINE 1 100ML.BAG IVPB PRN; +fentaNYL (PF) 50 MCG/ML 2 ML AMP IV PRN
[2022-10-25] MEDS: LACTATED RINGERS 1,000 ML IV SCH ×3 (10:26→18:20)
[2022-10-25 11:09] LABS: Basophils # (A) 0.1 k/uL (0-0.2); Basophils % (A) 1 %; Eosinophils # (A) 0.3 k/uL (0-0.7); Eosinophils % (A) 4 %; HCT 45.2 % (39.0-53.0); HGB 14.8 gm/dL (13.0-17.5); Lymphocytes # (A) 1.9 k/uL (1.0-4.8); Lymphocytes % (A) 26 %; MCHC 32.8 g/dL (31.0-37.0); MCV 97.7 fL (80.0-100.0); Mean Platelet Volume 7.5; Monocytes # (A) 0.4 k/uL (0-1.0); Monocytes % (A) 5 %; Neutrophils # (A) 4.6 k/uL (1.3-7.7); Neutrophils % (A) 62 %; RBC 4.63 m/uL (4.30-5.90); RDW 14.2 % (11.5-15.5); WBC 7.4 k/uL (3.8-10.6)
[2022-10-25 11:12] LABS: INR 0.9 (<1.2); Prothrombin Time 10.1 sec (9.0-12.0)
[2022-10-25 11:16] LABS: Platelet Count 322 k/uL (150-450)
[2022-10-25] MEDS ORDERED: MIDAZOLAM 2 MG/2 ML VIAL IVP ONE (11:37)
[2022-10-25] MEDS ORDERED: fentaNYL (PF) 50 MCG/ML 2 ML AMP IVP ONE (11:37)
[2022-10-25 11:41] LABS: ALT 25 U/L (4-49); AST 32 U/L (17-59); African American GFR (CKD) >90 (>60 ml/min/1.73 sqM); Albumin 4.2 g/dL (3.5-5.0); Alkaline Phosphatase 68 U/L (38-126); Anion Gap 9 mmol/L; Blood Urea Nitrogen 11 mg/dL (9-20); Calcium 9.5 mg/dL (8.4-10.2); Carbon Dioxide 21 mmol/L (22-30); Chloride 109 mmol/L (98-107); Glucose 106 mg/dL (74-99); Non-African American GFR(CKD) >90 (>60 ml/min/1.73 sqM); Potassium 4.2 mmol/L (3.5-5.1); Sodium 139 mmol/L (137-145); Total Bilirubin 0.8 mg/dL (0.2-1.3); Total Protein 7.4 g/dL (6.3-8.2)
[2022-10-25] MEDS ORDERED: TRANEXAMIC 1,000 MG/100ML-NACL PREMIX BAG ONE (12:26)
[2022-10-25] MEDS ORDERED: NEOSTIGMINE 1 MG/ML 10 ML VIAL ONE (12:26)
[2022-10-25] MEDS ORDERED: ROCURONIUM 10 MG/ML (5 ML VIAL) IV ONE (12:26)
[2022-10-25] MEDS ORDERED: GLYCOPYRROLATE 0.2 MG/ML 2 ML VIAL ONE (12:26)
[2022-10-25] MEDS ORDERED: LIDOCAINE 2% INJ 20 MG/ML (2 ML VIAL) ONE (12:26)
[2022-10-25] MEDS ORDERED: MIDAZOLAM 2 MG/2 ML VIAL ONE (12:26)
[2022-10-25] MEDS ORDERED: KETAMINE 10 MG/ML 20 ML VIAL ONE (12:26)
[2022-10-25] MEDS ORDERED: SUCCINYLCHOLINE CHLORIDE 200 MG/10 ML VIAL IV ONE (12:26)
[2022-10-25] MEDS ORDERED: ePHEDrine 50 MG/ML 1 ML VIAL ONE (12:26)
[2022-10-25] MEDS ORDERED: fentaNYL (PF) 50 MCG/ML 2 ML AMP ONE (12:26)
[2022-10-25] MEDS ORDERED: PROPOFOL 10 MG/ML 20 ML VIAL IV ONE (12:26)
[2022-10-25] MEDS ORDERED: HYDROmorphone (PF) 1 MG/ML ONE (12:26)
[2022-10-25] MEDS ORDERED: THROMBIN (BOVINE) 5,000 UNIT VIAL MISCELLANE ONE (13:21)
[2022-10-25] MEDS ORDERED: GELATIN SPONGE,ABSORB (LARGE) 1 EACH SPONGE MISCELLANE ONE (13:21)
[2022-10-25] MEDS ORDERED: LACTATED RINGERS 1,000 ML IV ONE (14:45)
[2022-10-25] MEDS ORDERED: GENTAMICIN 80 MG in SODIUM CHLORIDE 0.9% IRRIGATIO 3,000 ML IRRIGATION ONE (15:20)
[2022-10-25] MEDS ORDERED: ceFAZolin 3,000 MG in SODIUM CHLORIDE 0.9% IRRIGATIO 3,000 ML IRRIGATION ONE (15:20)
[2022-10-25] MEDS ORDERED: VANCOMYCIN 1,000 MG VIAL MISCELLANE ONE (15:32)
[2022-10-25] MEDS ORDERED: bisacodyL 10 MG SUPP RECTAL PRN (16:19)
[2022-10-25] MEDS ORDERED: ONDANSETRON 4 MG/2 ML VIAL IVP PRN (16:19)
[2022-10-25] MEDS ORDERED: MAGNESIUM HYDROXIDE 2,400 MG/30 ML CUP PO PRN (16:19)
[2022-10-25] MEDS ORDERED: HYDROmorphone 0.5 MG/0.5 ML SYRINGE IVP ONE ×2 (16:39→16:53)
--- NOTE | 2022-10-25 16:50 | P.OP ---
Date of Procedure: 10/25/22 Preoperative Diagnosis: 1. L4-S1 SPONDYLOSIS WITH DEGENERATIVE DISC DISEASE 2. L4-S1 STENOSIS, FORAMINAL BILATERAL, SEVERE 3. LE RADICULOPATHY WITH WEAKNESS 4. LOW BACK PAIN 5. SP L4-5 DECOMPRESSIVE LAMINECTOMY Postoperative Diagnosis: 1. L4-S1 SPONDYLOSIS WITH DEGENERATIVE DISC DISEASE 2. L4-S1 STENOSIS, FORAMINAL BILATERAL, SEVERE 3. LE RADICULOPATHY WITH WEAKNESS 4. LOW BACK PAIN 5. SP L4-5 DECOMPRESSIVE LAMINECTOMY 6. DURAL EROSION L5-S1 Procedure(s) Performed: 1. L5-S1 POSTERIOR LUMBAR VERTEBRAL BODY OSTEOTOMY FOR DEFORMITY CORRECTION (43761) 2. L4-5, L5-S1 POSTERIOLATERAL AND INTERBODY FUSION (63184, 68745) 3. REPAIR OF DURAL LEAK WITH FAT PATCH GRAFT (14290, 28559) 4. L4-5 LAMINOFORAMINOTOMY FOR DECOMPRESSION AND CAGE PLACEMENT, REVISION (61564) WITH L5-S1 BILATERAL LAMINECTOMY, COMPLETE FACETECTOMY AND FORAMINOTOMY FOR DEFORMITY CORRECTION, DECOMPRESSION AND CAGE PLACEMENT (34872) 5. SEGMENTAL INSTRUMENTATION L4-S1 (00442) 6. INSERTION OF BIOMECHANICAL DEVICES L4-5, L5-S1 (11342 X 2) 7. USE OF VILOOP NAVIGATION FOR SCREW PLACEMENT (93993) USE OF IONM ALL SCREWS TESTING >15MA Implants: -ZULEMA EVEREST SCREW AND RADHA SYSTEM -GLOBUS SABLE CAGES 5/1: 7-14/15DEG/MEDIUM 4/5: 9-16/8DEG/SHORT -VENTRIS ALLOCELL AF, AND SPONGES DISC SPACE; MAGNATOS PL GUTTERS WITH ALLOGRAFT Anesthesia: ANDREW Surgeon: Dallin Sparks Driving Teacher #1: Sharon Valladares (Sharon Valladares WAREHOUSE TEAM LEADER Was present and assisted with all aspects of the case from positioning to dressing placement) Estimated Blood Loss (ml): 300 IV fluids (ml): 2,500 Urine output (ml): 450 Pathology: none sent Condition: stable Disposition: PACU Indications for Procedure: Mr. Galan is presenting for evaluation of low back pain and bilateral lower extremity pain, bilateral lower extremity numbness and tingling. It was my pleasure to have seen and examined Mr. Galan. In our visit today we have had a chance to go over subjective complaints, physical examination findings and treatments including the natural course history without intervention and various interventional options. The patients imaging demonstrates: [facility]: IMages reviewed Multilevel spondylotic changes noted with post sugical changes at L4-5 where previous central decompression done. There is disc height loss and dessication L3-S1. There is facet arthropathy at these levels as well. No fracture No lesions. Flattened LL. 09/01/22 CT Chest abd/pelvis reviewed: This demonstrates Vacuum disc L4-5 and L5-S1 with spondylosis, facet arthrosis and stenosis related to these findings. No fractures noted. Flattened LL noted due to the collapse at these levels. On physical exam, Mr. Galan demonstrates: The patient reports experiencing an ache-like, throbbing pain throughout the low back that radiates down into the bilateral lower extremities. The patient notes that his lower extremity pain is associated with numbness and tingling. The patient states that his pain has been worsening over the last several months. The patient states that his current symptoms are exacerbated by all activity, which makes it very difficult for him to complete many of his activities of daily living. The patient has been experiencing severe sleep disturbances due to his ongoing pain ans associated symptoms. The patient notes that is symptoms have started to significantly affect his overall quality of life. I have explained to the patient that as their condition progresses it will cause further neurological deficits and eventual paralysis. Based on the patients imaging, physical exam, and the rapid progression and disabling nature of their symptoms, at this time I recommend surgery in the form of a: L4-S1 open PLIF. I discussed the risk and benefits of this procedure at length with Mr. Galan. The patient agreed to considered pursuing the procedure above mentioned. Prior to surgery, she should follow up with her PCP (Cardio, ID, IM etc) for clearance. Questions were invited and answered, and the patient wishes to proceed as outlined below. Currently, I am recommendin. L4-S1 revision posteriolateral and interbody fusion with decompression Description of Procedure: L4-S1 open Decompression and fusion (rosita) 06/18 osteotomy. The patient was seen and examined in the preoperative area. All preoperative protocols were followed. Informed consent was obtained, risks and benefits of the procedure were discussed at length. Risks including bleeding infection damage to the surrounding tissue and risk of reoperation were discussed with the patient. Risk of anesthesia up to and including was discussed with the patient. These are outlined in the risk review. They were willing to accept these risks and all the risks of surgery. The patient was given a weight-based dose of antibiotics in the form of 2 g Ancef. The patient was seen and evaluated by the anesthesia team who deemed them fit for surgery. The site was marked, the patient was willing to proceed with the procedure. The patient was transferred to the operative suite by the Department of anesthesia. They were then drifted off to sleep by the department anesthesia and GETA was performed. The patient tolerated this well. Miranda catheter was placed by nursing staff, a-traumatically. Once confirmation of lines and ventilation the patient was transferred to a prone Gamal table very carefully. All bony prominences including wrists, elbows, axilla, chest, hips, and thighs, and feet were padded very well. Special attention was paid to the genitalia, and these were padded accordingly. SCDs were placed on bilateral lower extremities and were connected. Arms were well padded and placed on arm boards up and out in the 90/90 position. Once in position, again we confirmed good ventilation capabilities and that lines were running appropriately. The patients Lumbar spine was then exposed. 1010s were placed outlining the incision site. Standard alcohol was used to clean the incision site and allowed to dry. C-arm was used to needle localize the pedicles at L4-S1 and bio-rishabh the patient and confirm level for incision which was marked with a skin marker. Operative briefing was performed with all teams and everyone in agreement to proceed. The patient was then prepped and draped in a normal sterile fashion. Timeout was then performed, and all parties agreed with the procedure to be performed. Midline skin incision was made over the previously bio-marked area and dissection taken down over the SP of L3-S1. L4-S1 was taken out over facet joints and TPs and a penfield 4 used to rishabh the L4 pedicle. Lateral image used to confirm levels. Once confirmed, screws were proceeded to be placed b/l at pedicles from L4-S1 using garbs Navigation. An SP clamp was used, 3D C arm spin obtained and confirmed to be accurate. Once this was confirmed screws were placed using a navigated radames, navigated awl-tap and navigated racecar driver. Once screws were placed they were confirmed to be in good position using AP and Lateral fluoroscopy. The wound was then irrigated. Screws were tested and all tested above 15 mA. We then proceeded to decompression and cage placement. Attention was then turned to interbody fusion at L5-S1. Bilateral laminectomy, complete facetectomy and foraminotomy performed at L5-S1 using high speed radames and Kerrison rongure. The ligamentum was removed and the dural sac decompressed . Exiting and traversing roots visualized and decompressed. Upon unroofing of cranial portion of L5 lamina dural erosion was encountered likey from previous CT meylogram or surgery. Arachnoid was still in place, but small rootlets trying to herniat through. These were reduced and a simple 6-0 PDS was placed was placed. A fat graft was then harvested from subq region and sewn down over this. Valsalva to 40 mmHg after showed no leak. We then proceeded. Neural elements were then protected, and disc space accessed with an osteotome. Posterior body osteotomy was performed of L5 and S1 for deformtiy correction, access, mobility of space. Under lateral imaging osteotomy was passed through body posterio to anterior 1/3 and bone removed with kerrisoin and pituitary. Sequential shaving then done under lateral imaging and complete discectomy performed using shmuel, pituitary and curette. Once good bleeding endplates accomplished and good height jewish with trials, a combination of autograft, allograft and synthetic placed anterior in the disc space. The cage was then selected and impacted into place under lateral imaging. The cage was then expanded restoring height, lordosis and alignment. The cage was backfilled with bone graft through a funnel. The casing crew was removed and the area inspected. Good cage placement, stable cage and no injuries. Area was irrigated copiously, and meticulous hemostasis achieved. The tubular retractor was then removed under direct visualization. Attention was then turned to interbody fusion at L4-5. Laminoforaminotomy performed at L4-5 using high speed radames and Kerrison rongure. The ligamentum was removed and the dural sac decompressed. Exiting and traversing roots visualized and decompressed. Neural elements were then protected, and disc space accessed with an osteotome. Sequential shaving then done under lateral imaging and complete discectomy performed using shmuel, pituitary and curette. Once good bleeding endplates accomplished and good height jewish with trials, a combination of autograft, allograft and synthetic placed anterior in the disc space. The cage was then selected and impacted into place under lateral imaging. The cage was then expanded restoring height, lordosis and alignment. The cage was backfilled with bone graft through a funnel. The casing crew removed and area inspected. Good cage placement, stable cage and no injuries. Area was irrigated copiously, and meticulous hemostasis achieved. The wound and disc spaces irrigated and meticulous hemostasis achieved. Rods were then sized and selected and placed into S1 screws b/l. Set screws locked these in place and then sequentially reduced into L4 and L5 b/l for alignment jewish. This was accomplished. Set screws were then all placed and final tightened. A cross link was selected and placed and final tightened. TPs were then decorticated with high speed radames. The wound was the irrigated with 3L Ancef irrigation, 3L gentamicin irrigation and 3L NSS. Surgical was placed over the dura. Autograft and MagnatOs then placed in the posteriolateral gutters and impacted into place for PL fusion. Bleeding was limited and no drain placed. Tisseal placed over the dura along with surgicel. Final images confirmed good placement of hardware and good reduction of listhesis as well as jewish of height and lordosis. Facia was then closed with #1 PDS. Deep subq closed with 0 Vicryl. Superficial subq closed with 2-0 Vicryl and skin with jalen. Wound edges approximated very well. Wound was then cleaned with alcohol and dried. Wounds dressed with Optifoam dressings. The patient was then transferred off the table back to their hospital bed a- traumatically. They were extubated by the department of anesthesia. They were then transferred to PACU in stable condition having tolerated the procedure with no complications.
[2022-10-25] MEDS: HYDROmorphone 1 MG/ML 1 ML SYRINGE IVP PRN ×2 (18:21→21:18)
[2022-10-25] MEDS: HYDROcodone/APAP 10-325MG 1 EACH TAB PO PRN ×2 (18:26→22:27)
[2022-10-25] MEDS ORDERED: tiZANidine 4 MG TAB PO PRN (19:15)
[2022-10-25] MEDS: oxyCODONE-APAP 5-325MG 1 EACH TAB PO PRN (20:02)
[2022-10-25] MEDS: tiZANidine 4 MG TAB PO SCH (20:02)
[2022-10-25] MEDS: busPIRone HCl 10 MG TAB PO SCH (21:17)
[2022-10-25] MEDS: GABAPENTIN 300 MG CAP PO SCH (21:17)
[2022-10-25] MEDS: METOPROLOL TARTRATE 25 MG TAB PO SCH (21:18)
[2022-10-25] MEDS: hydrALAZINE HCL 25 MG TAB PO SCH (21:18)
[2022-10-25] MEDS: MIRTAZAPINE 15 MG TAB PO SCH (21:18)
[2022-10-25] MEDS: IPRATROPIUM 0.5 MG/2.5 ML NEBU INHALATION SCH (21:57)
[2022-10-25] MEDS: ALBUTEROL NEBULIZED 2.5 MG/3 ML INHALATION SCH (21:57)
[2022-10-25] MEDS: SYMBICORT 80-4.5 MCG INHALER INHALATION SCH (21:57)
[2022-10-25] MEDS ORDERED: NON FORMULARY DRUG (Gabapentin [Gabapentin] 600 MG Tablet) PO SCH (22:00)
[2022-10-26] MEDS: oxyCODONE-APAP 5-325MG 1 EACH TAB PO PRN ×2 (02:53→06:47)
[2022-10-26] MEDS: HYDROmorphone 1 MG/ML 1 ML SYRINGE IVP PRN ×3 (02:53→10:03)
[2022-10-26] MEDS: HYDROcodone/APAP 10-325MG 1 EACH TAB PO PRN (04:15)
[2022-10-26] MEDS: LACTATED RINGERS 1,000 ML IV SCH ×2 (06:12→06:47)
--- NOTE | 2022-10-26 07:14 | XR ---
Intraoperative/procedural fluoroscopic services were provided posterior lumbar disc fusion. Total flu oroscopy time is 40.1 seconds with a total of 4 submitted images to PACS. Total DAP 4.[address] ease see the operative note for further details.
[2022-10-26 07:58] LABS: Basophils % (A) 0 %; Eosinophils # (A) 0.2 k/uL (0-0.7); Eosinophils % (A) 2 %; HCT 40.8 % (39.0-53.0); HGB 13.3 gm/dL (13.0-17.5); Lymphocytes # (A) 1.5 k/uL (1.0-4.8); Lymphocytes % (A) 15 %; MCH 32.2 pg (25.0-35.0); MCHC 32.5 g/dL (31.0-37.0); MCV 99.2 fL (80.0-100.0); Mean Platelet Volume 7.8; Monocytes # (A) 0.4 k/uL (0-1.0); Monocytes % (A) 4 %; Neutrophils # (A) 7.5 k/uL (1.3-7.7); Neutrophils % (A) 78 %; Platelet Count 273 k/uL (150-450); RBC 4.12 m/uL (4.30-5.90); RDW 14.3 % (11.5-15.5); WBC 9.6 k/uL (3.8-10.6)
[2022-10-26 08:27] LABS: African American GFR (CKD) >90 (>60 ml/min/1.73 sqM); Anion Gap 6 mmol/L; Blood Urea Nitrogen 11 mg/dL (9-20); Calcium 8.9 mg/dL (8.4-10.2); Carbon Dioxide 25 mmol/L (22-30); Chloride 107 mmol/L (98-107); Glucose 117 mg/dL (74-99); Non-African American GFR(CKD) >90 (>60 ml/min/1.73 sqM); Potassium 4.1 mmol/L (3.5-5.1); Sodium 138 mmol/L (137-145)
--- NOTE | 2022-10-26 08:32 | CT ---
EXAMINATION TYPE: CT lumbar spine wo con DATE OF EXAM: 10/26/2022 COMPARISON: 09/25/2022 HISTORY: 57-year-old male post op evaluation. TECHNIQUE: Contiguous axial scanning of the lumbar spine without IV contrast. Coronal and sagittal re constructions performed. CT DLP: 1219.6 mGycm Automated exposure control for dose reduction was used. FINDINGS: Interval placement of L4-S1 posterior and interbody lumbar fusion with corresponding laminectomies. Recent postoperative changes are present with posterior soft tissue swelling and scattered soft tissu e air. Epidural space air and additional air within the laminectomy bed are also noted along the surg ical levels. Vertebral body heights are preserved. Trace grade 1 retrolisthesis L2-L3 and L3-L4 is unchanged. Mild to moderate degenerative disc disease above the fusion at the upper to mid lumbar spine. There a ppears to be a component of mild congenital spinal canal stenosis with AP canal dimension of 1.1 cm e specially mid lumbar spine. The orthopedic hardware appears appropriately positioned. On the right, mild neural foraminal narrowing is present throughout the mid and lower lumbar spine. On the left, there is foraminotomy changes at L4-L5 and L5-S1. Mild to moderate neuroforaminal narrow ing at L3-L4. Incidental underlying hepatic steatosis. IMPRESSION: 1. RECENT POSTOPERATIVE CHANGES RELATING TO L4-S1 POSTERIOR AND INTERBODY FUSION WITH CORRESPONDING L AMINECTOMIES. THE ORTHOPEDIC HARDWARE APPEARS IN APPROPRIATE POSITION. 2. COMPONENT OF MILD CONGENITAL SPINAL CANAL NARROWING ESPECIALLY IN THE MID LUMBAR SPINE WITH AP CAN AL DIMENSION OF 1.1 CM. 3. MILD TO MODERATE DEGENERATIVE DISC DISEASE IN THE REMAINDER OF THE LUMBAR SPINE. TRACE GRADE 1 RET ROLISTHESIS L2-L3 AND L3-L4 IS UNCHANGED. 4. INCIDENTAL MARKED HEPATIC STEATOSIS. APPROPRIATE CLINICAL MANAGEMENT RECOMMENDED.
--- NOTE | 2022-10-26 08:48 | P.PN ---
Subjective Progress Note Date: 10/26/22 Principal diagnosis: 1. L4-S1 spondylosis with stenosis 2. L4-S1 disc degeneration 3. Lower extremity radiculopathy 4. Lower extremity weakness 5. S/P L4-5 laminectomy Patient seen and examined this morning. Patient has just returned from CT scan, resting comfortably in bed. Patient does have complaint of low back pain, reports current medications are not managing his pain. Medications have been adjusted. Surgical incision to the lumbar spine, incision is well approximated with jalen intact. Small amount of sangeous drainage from incision, dressing has been changed this morning 10/26/22. Patient does report improvement in bilateral lower extremity radiculopathy since procedure. Informed patient that physical therapy will be working with him today. Patient verbalized understanding. Patient has been afebrile, denies nausea/vomiting, or chest pain. No acute concerns at this time. Objective - Vital Signs Vital signs: Vital Signs Temp 99.0 F 10/26/22 07:13 Pulse 70 10/26/22 07:13 Resp 16 10/26/22 07:13 BP 149/74 10/26/22 07:13 Pulse Ox 95 10/26/22 07:13 FiO2 Intake & Output 10/25/22 10/26/22 10/26/22 18:59 06:59 18:59 Intake Total 2952 700 Output Total 680 560 Balance 2272 140 Weight 83.915 kg Intake: IV 2952 Intake, IV Titration 700 Amount Lactated Ringers 1,000 ml 600 @ 20 mls/hr IV .Q24H NIKKI Rx#:[id number] ceFAZolin 2 gm In Sodium 100 Chloride 0.9% 50 ml @ 100 mls/hr IVPB Q8H NIKKI Rx#: [id number] Output: Urine 380 560 Estimated Blood Loss 300 Other: Voiding Method Indwelling Catheter - Exam Physical Examination General: The patient is awake and alert, in no acute distress Skin: Skin is warm and dry with no obvious rashes or lesions. Surgical incision to the lumbar spine, edges are well approximated with jalen intact. Dressing has been changed this morning 10/26/2022. Eye: Pupils are equal, round and reactive to light, extra-ocular movements are intact; there is normal conjunctiva bilaterally. Neck: The neck is supple, there is no tenderness and ROM intact. Cardiovascular: There is a regular rate and rhythm. No murmur, rub or gallop is appreciated. Respiratory: Lungs are clear to auscultation, respirations are non-labored, breath sounds are equal. Gastrointestinal: Soft, non-distended, non-tender abdomen. Back: There is no tenderness to palpation in the midline, paralumbar, parathoracic or buttocks region. There is no obvious deformity . Musculoskeletal: ROM limited secondary to pain and stiffness from surgical procedure. Muscle strength in all major muscle groups of bilateral upper extremities 5/5, bilateral lower extremities 4/5. Neurological: CN 2-12 intact. There are no obvious motor or sensory deficits. Movement and coordination equal and intact. Sensory exam to light touch intact C5-T1 and intact from L2-S1. Reflexes 2/4 in bilateral upper and lower extremities. Negative Hoffmans, babinski, and clonus signs. Psychiatric: Cooperative, appropriate mood & affect, normal judgment. - Labs CBC & Chem 7: 10/26/22 07:29 10/26/22 07:29 Labs: Abnormal Lab Results - Last 24 Hours (Table) 10/25/22 Range/Units 10:49 Chloride 109 H (98-107) mmol/L Carbon Dioxide 21 L (22-30) mmol/L Glucose 106 H (74-99) mg/dL Assessment and Plan Assessment: Postop day 1: L4-S1 open posterior lumbar interbody fusion. 1. L4-S1 spondylosis with stenosis 2. L4-S1 disc degeneration 3. Lower extremity radiculopathy 4. Lower extremity weakness 5. S/P L4-5 laminectomy Plan: -Appreciate media sales consultant and team management. -Activity: Ambulate QID, OOB all meals, up and about, limit lifting bending twisting to less than 5 lbs. Use walker or cane if needed for stability. -Daily PT/OT, increase ambulation strength and balance. -Brace when up and about, not needed in bed or chair -Pain control: Adequate at this time -Meds: reviewed -GI ppx: senna, Miralax -DVT PPX: OK to restart Heparin tonight -Hygiene: Shower today. Maintain dressing clean and dry. Meticulous cleaning after BMs away from the incision site -Encourage IS 10x/hr -Dispo: Anticipate discharge home tomorrow with homecare 11/06/2022 *I reviewed and discussed this case with my attending Dr. Sparks, whom has reviewed this chart and films and is in agreement with assessment and plan of care as outlined above. I have personally seen and examined the patient, performed the documentation and the assessment and plan as written. Number of minutes spent on the visit: 20m.
[2022-10-26] MEDS: IPRATROPIUM 0.5 MG/2.5 ML NEBU INHALATION SCH ×2 (09:05→12:12)
[2022-10-26] MEDS: ALBUTEROL NEBULIZED 2.5 MG/3 ML INHALATION SCH ×2 (09:05→12:12)
[2022-10-26] MEDS: SYMBICORT 80-4.5 MCG INHALER INHALATION SCH ×2 (09:05→20:50)
[2022-10-26] MEDS: METOPROLOL TARTRATE 25 MG TAB PO SCH ×2 (09:12→20:44)
[2022-10-26] MEDS: hydrALAZINE HCL 25 MG TAB PO SCH ×2 (09:13→20:44)
[2022-10-26] MEDS: SENNOSIDES-DOCUSATE SODIUM 1 EACH TAB PO SCH (09:13)
[2022-10-26] MEDS: ATORVASTATIN 20 MG TAB PO SCH (09:13)
[2022-10-26] MEDS: LOSARTAN 50 MG TAB PO SCH (09:14)
[2022-10-26] MEDS: busPIRone HCl 10 MG TAB PO SCH ×2 (09:14→20:18)
[2022-10-26] MEDS: allopurinoL 100 MG TAB PO SCH (09:14)
[2022-10-26] MEDS: SERTRALINE 100 MG TAB PO SCH (09:15)
[2022-10-26] MEDS: oxyCODONE-APAP 7.5-325MG 1 EACH TAB PO SCH ×4 (09:19→20:17)
[2022-10-26] MEDS: tiZANidine 4 MG TAB PO SCH ×3 (09:25→20:17)
[2022-10-26] MEDS: MULTIVITAMINS, THERA 1 EACH TAB PO SCH (09:26)
[2022-10-26] MEDS: GABAPENTIN 300 MG CAP PO SCH ×3 (09:26→20:18)
[2022-10-26] MEDS ORDERED: LORazepam 0.5 MG TAB PO PRN (12:47)
[2022-10-26] MEDS ORDERED: LORazepam 1 MG TAB PO PRN ×3 (12:47)
[2022-10-26] MEDS ORDERED: hydrALAZINE HCL 20 MG/ML 1 ML VIAL IVP PRN (12:49)
[2022-10-26] MEDS: THIAMINE 100 MG/ML 2 ML VIAL IM STA ×2 (13:24→13:32)
[2022-10-26] MEDS: HYDROmorphone 0.5 MG/0.5 ML SYRINGE IVP PRN ×3 (13:30→20:16)
[2022-10-26] MEDS: KETOROLAC 15 MG/ML 1 ML VIAL IVP SCH ×2 (13:31→17:44)
[2022-10-26] MEDS: HEPARIN SODIUM,PORCINE 5,000 UNIT/ML 1 ML VIAL SQ SCH ×2 (13:32→20:17)
[2022-10-26] MEDS: NICOTINE 14MG/24HR PATCH TRANSDERM SCH (13:33)
--- NOTE | 2022-10-26 13:52 | CONS ---
CONSULTATION REASON FOR CONSULTATION: Advice regarding hypertension, hyperlipidemia, HISTORY OF PRESENT ILLNESS: This 57-year-old gentleman admitted with hypertension hyperlipidemia, multiple medical problems. He underwent L5-S1 posterior lumbar fusion and surgery. There is no history of any fever or rigors, no headache or loss of consciousness. The patient complains of back pain. PAST MEDICAL HISTORY: Reviewed, COPD, hypertension, rest of the history and rest of the chart is also reviewed. HOME MEDICATIONS: Reviewed include Zanaflex, dose and rest of medications reviewed. ALLERGIES: Clonidine. FAMILY HISTORY: History of CHF. SOCIAL HISTORY: History of alcohol abuse and history of smoking. REVIEW OF SYSTEMS: A 14-point review is negative except as mentioned. OBJECTIVE: VITAL SIGNS: Pulse is 78, blood pressure 162/70, and respirations 16. HEENT: Conjunctivae normal. NECK: No JVD. CARDIOVASCULAR: S1, S2 muffled ABDOMEN: Soft, nontender. LEGS: No edema. No cyanosis. NERVOUS SYSTEM: No focal deficits. LABORATORY DATA: Reviewed. ASSESSMENT: 1. Status post L4-L5, L5-S1 lumbar surgery and fusion. 2. History of EtOH. 3. Hypertension. 4. Hyperlipidemia. 5. COPD. 6. Multiple medical issues. RECOMMENDATIONS: This 57-year-old gentleman presented with multiple complex medical issues. He depression. Recommended to resume the home medications. CIWA protocol. Otherwise, watch for alcohol withdrawals, DTs, symptomatic treatment of the pain. Prognosis guarded because of multiple medical issues. DVT prophylaxis. See orders for details. Further recommendations to follow. MMODL / IJN: [id number] / MTDD
[2022-10-26] MEDS: IPRATROPIUM-ALBUTEROL 3 ML NEB INHALATION SCH ×2 (15:44→20:50)
[2022-10-26] MEDS: ACETAMINOPHEN IV (For NPO) 1,000 MG in EMPTY BAG 1 BAG IVPB SCH (17:44)
[2022-10-26] MEDS: MIRTAZAPINE 15 MG TAB PO SCH (20:18)
[2022-10-27] MEDS: ACETAMINOPHEN IV (For NPO) 1,000 MG in EMPTY BAG 1 BAG IVPB SCH ×3 (00:13→12:17)
[2022-10-27] MEDS: KETOROLAC 15 MG/ML 1 ML VIAL IVP SCH ×4 (00:13→17:36)
[2022-10-27] MEDS: oxyCODONE-APAP 7.5-325MG 1 EACH TAB PO SCH ×6 (00:14→21:12)
[2022-10-27] MEDS: HYDROmorphone 0.5 MG/0.5 ML SYRINGE IVP PRN ×6 (00:21→21:09)
[2022-10-27] MEDS: LACTATED RINGERS 1,000 ML IV SCH (07:53)
[2022-10-27] MEDS: SYMBICORT 80-4.5 MCG INHALER INHALATION SCH ×2 (07:54→21:07)
[2022-10-27] MEDS: IPRATROPIUM-ALBUTEROL 3 ML NEB INHALATION SCH ×4 (07:54→21:07)
[2022-10-27 08:05] LABS: Basophils % (A) 0 %; Eosinophils # (A) 0.4 k/uL (0-0.7); Eosinophils % (A) 4 %; HCT 35.7 % (39.0-53.0); HGB 11.5 gm/dL (13.0-17.5); Lymphocytes # (A) 1.5 k/uL (1.0-4.8); Lymphocytes % (A) 16 %; MCH 32.3 pg (25.0-35.0); MCHC 32.1 g/dL (31.0-37.0); MCV 100.7 fL (80.0-100.0); Macrocytosis Slight; Mean Platelet Volume 8.5; Monocytes # (A) 0.4 k/uL (0-1.0); Monocytes % (A) 5 %; Neutrophils # (A) 6.7 k/uL (1.3-7.7); Neutrophils % (A) 73 %; Platelet Count 186 k/uL (150-450); RBC 3.55 m/uL (4.30-5.90); RDW 14.3 % (11.5-15.5); WBC 9.2 k/uL (3.8-10.6)
[2022-10-27 08:43] LABS: ALT 18 U/L (4-49); AST 34 U/L (17-59); African American GFR (CKD) >90 (>60 ml/min/1.73 sqM); Albumin 2.9 g/dL (3.5-5.0); Albumin/Globulin Ratio 1.2; Alkaline Phosphatase 59 U/L (38-126); Anion Gap 5 mmol/L; Blood Urea Nitrogen 13 mg/dL (9-20); Calcium 8.3 mg/dL (8.4-10.2); Carbon Dioxide 24 mmol/L (22-30); Chloride 107 mmol/L (98-107); Globulin 2.5 g/dL; Glucose 126 mg/dL (74-99); Non-African American GFR(CKD) >90 (>60 ml/min/1.73 sqM); Potassium 3.7 mmol/L (3.5-5.1); Sodium 136 mmol/L (137-145); Total Bilirubin 0.5 mg/dL (0.2-1.3); Total Protein 5.4 g/dL (6.3-8.2)
[2022-10-27] MEDS: ATORVASTATIN 20 MG TAB PO SCH (09:23)
[2022-10-27] MEDS: SERTRALINE 100 MG TAB PO SCH (09:23)
[2022-10-27] MEDS: THIAMINE 100 MG TAB PO SCH (09:23)
[2022-10-27] MEDS: allopurinoL 100 MG TAB PO SCH (09:24)
[2022-10-27] MEDS: GABAPENTIN 300 MG CAP PO SCH ×3 (09:24→21:12)
[2022-10-27] MEDS: busPIRone HCl 10 MG TAB PO SCH ×2 (09:24→21:11)
[2022-10-27] MEDS: SENNOSIDES-DOCUSATE SODIUM 1 EACH TAB PO SCH (09:24)
[2022-10-27] MEDS: MULTIVITAMINS, THERA 1 EACH TAB PO SCH (09:25)
[2022-10-27] MEDS: ASPIRIN 81 MG PO SCH (09:25)
[2022-10-27] MEDS: NICOTINE 14MG/24HR PATCH TRANSDERM SCH (09:25)
[2022-10-27] MEDS: HEPARIN SODIUM,PORCINE 5,000 UNIT/ML 1 ML VIAL SQ SCH ×2 (09:25→21:10)
[2022-10-27] MEDS: hydrALAZINE HCL 25 MG TAB PO SCH ×2 (09:25→21:13)
[2022-10-27] MEDS: LOSARTAN 50 MG TAB PO SCH (09:25)
[2022-10-27] MEDS: METOPROLOL TARTRATE 25 MG TAB PO SCH ×2 (09:25→21:13)
[2022-10-27] MEDS: tiZANidine 4 MG TAB PO SCH (09:35)
--- NOTE | 2022-10-27 10:54 | P.PN ---
Subjective Progress Note Date: 10/27/22 Principal diagnosis: 1. L4-S1 spondylosis with stenosis 2. L4-S1 disc degeneration 3. Lower extremity radiculopathy 4. Lower extremity weakness 5. S/P L4-5 laminectomy Patient seen and examined this morning. Patient is sitting comfortably upright in bed with legs crossed watching television. Patient does have complaint of low back pain, reports current medications are not managing his pain. Medications have been adjusted. Surgical incision to the lumbar spine, incision is well approximated with jalen intact. Moderate amount of sangeous drainage from incision, dressing has been changed this morning 10/27/22. Drainage does seem to be decreasing. Patient does report improvement in bilateral lower extremity radiculopathy since procedure. Script for LSO brace will be placed in chart. Patient has been afebrile, denies nausea/vomiting, or chest pain. No acute concerns at this time. Objective - Vital Signs Vital signs: Vital Signs Temp 98.5 F 10/27/22 07:00 Pulse 74 10/27/22 08:07 Resp 15 10/27/22 07:00 BP 114/72 10/27/22 07:00 Pulse Ox 93 L 10/27/22 07:57 FiO2 Intake & Output 10/26/22 10/27/22 10/27/22 18:59 06:59 18:59 Output Total 500 150 Balance -500 -150 Output: Urine 500 150 Straight 500 Other: # Voids 2 - Exam Physical Examination General: The patient is awake and alert, in no acute distress Skin: Skin is warm and dry with no obvious rashes or lesions. Surgical incision to the lumbar spine, edges are well approximated with jalen intact. Dressing has been changed this morning 10/27/2022. Eye: Pupils are equal, round and reactive to light, extra-ocular movements are intact; there is normal conjunctiva bilaterally. Neck: The neck is supple, there is no tenderness and ROM intact. Cardiovascular: There is a regular rate and rhythm. No murmur, rub or gallop is appreciated. Respiratory: Lungs are clear to auscultation, respirations are non-labored, breath sounds are equal. Gastrointestinal: Soft, non-distended, non-tender abdomen. Back: There is no tenderness to palpation in the midline, paralumbar, parathoracic or buttocks region. There is no obvious deformity . Musculoskeletal: ROM limited secondary to pain and stiffness from surgical procedure. Muscle strength in all major muscle groups of bilateral upper extremities 5/5, bilateral lower extremities 4/5. Neurological: CN 2-12 intact. There are no obvious motor or sensory deficits. Movement and coordination equal and intact. Sensory exam to light touch intact C5-T1 and intact from L2-S1. Reflexes 2/4 in bilateral upper and lower extremities. Negative Hoffmans, babinski, and clonus signs. Psychiatric: Cooperative, appropriate mood & affect, normal judgment. - Labs CBC & Chem 7: 10/27/22 07:04 10/27/22 07:04 Labs: Abnormal Lab Results - Last 24 Hours (Table) 10/27/22 10/27/22 Range/Units 07:04 07:04 RBC 3.55 L (4.30-5.90) m/uL Hgb 11.5 L (13.0-17.5) gm/dL Hct 35.7 L (39.0-53.0) % MCV 100.7 H (80.0-100.0) fL Sodium 136 L (137-145) mmol/L Glucose 126 H (74-99) mg/dL Calcium 8.3 L (8.4-10.2) mg/dL Total Protein 5.4 L (6.3-8.2) g/dL Albumin 2.9 L (3.5-5.0) g/dL Assessment and Plan Assessment: Postop day 2: L4-S1 open posterior lumbar interbody fusion. 1. L4-S1 spondylosis with stenosis 2. L4-S1 disc degeneration 3. Lower extremity radiculopathy 4. Lower extremity weakness 5. S/P L4-5 laminectomy Plan: -Appreciate hematology oncology consultant and team management. -Activity: Ambulate QID, OOB all meals, up and about, limit lifting bending twisting to less than 5 lbs. Use walker or cane if needed for stability. -Daily PT/OT, increase ambulation strength and balance. -Brace when up and about, not needed in bed or chair -Pain control: Adequate at this time -Meds: reviewed -GI ppx: senna, Miralax -DVT PPX: OK to restart Heparin tonight -Hygiene: Shower today. Maintain dressing clean and dry. Meticulous cleaning after BMs away from the incision site -Encourage IS 10x/hr -Dispo: Anticipate discharge home Saturday with homecare 10/29/2022. *I reviewed and discussed this case with my attending Dr. Sparks, whom has reviewed this chart and films and is in agreement with assessment and plan of care as outlined above. I have personally seen and examined the patient, performed the documentation and the assessment and plan as written. Number of minutes spent on the visit: 20m.
--- NOTE | 2022-10-27 13:10 | PN ---
PROGRESS NOTE DATE OF SERVICE: 10/27/2022 SUBJECTIVE: This is a 57-year-old gentleman who was admitted after back surgery, is being closely monitored. The patient complains of back pain. No chest pain, no palpitations, no fever. OBJECTIVE: VITAL SIGNS: Pulse is 62, blood pressure 140/70, respirations 15. CHEST: Clear to auscultation. CARDIOVASCULAR: S1, S2. ABDOMEN: Soft. BACK: Status post surgery. LABORATORY DATA: Reviewed. ASSESSMENT: 1. Status post L4-L5, L5-S1 lumbar surgery and fusion. 2. History of EtOH. 3. Hypertension. 4. Hyperlipidemia. 5. COPD. 6. Multiple medical issues. RECOMMENDATIONS: Recommended to continue current management, continue symptomatic treatment, pain management. Watch for DT precautions. Closely monitor with Orthopedic surgery. DVT prophylaxis. Further recommendations to follow. MMSONALL / JOSEPHN: [id number] /
[2022-10-27] MEDS: CYCLOBENZAPRINE 10 MG TAB PO SCH ×2 (15:14→21:13)
[2022-10-27] MEDS: MIRTAZAPINE 15 MG TAB PO SCH (21:11)
[2022-10-28] MEDS: oxyCODONE-APAP 7.5-325MG 1 EACH TAB PO SCH ×6 (00:02→20:18)
[2022-10-28] MEDS: KETOROLAC 15 MG/ML 1 ML VIAL IVP SCH ×3 (00:02→11:25)
[2022-10-28] MEDS: HYDROmorphone 0.5 MG/0.5 ML SYRINGE IVP PRN ×3 (00:03→06:53)
[2022-10-28] MEDS: LACTATED RINGERS 1,000 ML IV SCH ×2 (07:46)
[2022-10-28] MEDS: SYMBICORT 80-4.5 MCG INHALER INHALATION SCH ×2 (08:35→20:10)
[2022-10-28] MEDS: IPRATROPIUM-ALBUTEROL 3 ML NEB INHALATION SCH ×4 (08:35→20:10)
[2022-10-28] MEDS: hydrALAZINE HCL 25 MG TAB PO SCH ×2 (08:55→20:26)
[2022-10-28] MEDS: SERTRALINE 100 MG TAB PO SCH (08:55)
[2022-10-28] MEDS: MULTIVITAMINS, THERA 1 EACH TAB PO SCH (08:56)
[2022-10-28] MEDS: ASPIRIN 81 MG PO SCH (08:56)
[2022-10-28] MEDS: CYCLOBENZAPRINE 10 MG TAB PO SCH ×3 (08:56→20:26)
[2022-10-28] MEDS: GABAPENTIN 300 MG CAP PO SCH ×3 (08:56→20:27)
[2022-10-28] MEDS: METOPROLOL TARTRATE 25 MG TAB PO SCH ×2 (08:57→20:27)
[2022-10-28] MEDS: LOSARTAN 50 MG TAB PO SCH (08:57)
[2022-10-28] MEDS: ATORVASTATIN 20 MG TAB PO SCH (08:57)
[2022-10-28] MEDS: SENNOSIDES-DOCUSATE SODIUM 1 EACH TAB PO SCH (08:57)
[2022-10-28] MEDS: busPIRone HCl 10 MG TAB PO SCH ×2 (08:57→20:27)
[2022-10-28] MEDS: THIAMINE 100 MG TAB PO SCH (08:57)
[2022-10-28] MEDS: HEPARIN SODIUM,PORCINE 5,000 UNIT/ML 1 ML VIAL SQ SCH ×2 (08:58→20:27)
[2022-10-28] MEDS: allopurinoL 100 MG TAB PO SCH (08:58)
[2022-10-28] MEDS: NICOTINE 14MG/24HR PATCH TRANSDERM SCH (08:58)
--- NOTE | 2022-10-28 12:07 | P.PN ---
Subjective Progress Note Date: 10/28/22 Principal diagnosis: 1. L4-S1 spondylosis with stenosis 2. L4-S1 disc degeneration 3. Lower extremity radiculopathy 4. Lower extremity weakness 5. S/P L4-5 laminectomy Patient seen and examined this morning. Patient is laying on his left side resting on his elbow in bed. Patient states he has had mild improvement in his pain of the low back. Informed patient that we need to wean from IV medication today, he verbalizes understanding. Surgical incision to the lumbar spine, incision is well approximated with jalen intact. Sangeous drainage from incision, dressing has been changed this morning 10/28/22. Drainage does seem to be decreasing. Change dressing as needed. LSO brace is present at bedside. Patient has been afebrile, denies nausea/vomiting, or chest pain. No acute concerns at this time. Objective - Vital Signs Vital signs: Vital Signs Temp 98.9 F 10/28/22 07:38 Pulse 76 10/28/22 08:47 Resp 17 10/28/22 07:38 BP 104/62 10/28/22 07:38 Pulse Ox 96 10/28/22 07:38 FiO2 Intake & Output 10/27/22 10/28/22 10/28/22 18:59 06:59 18:59 Intake Total 600 Balance 600 Intake: Intake, IV Titration 600 Amount ACETAMINOPHEN IV (For NPO 200 ) 1,000 mg In Empty Bag 1 bag @ 400 mls/hr IVPB Q6HR [facility] Rx#:[id number] Lactated Ringers 1,000 ml 160 @ 20 mls/hr IV .Q24H [facility] Rx#:[id number] Lactated Ringers 1,000 ml 240 @ 20 mls/hr IV .Q24H [facility] Rx#:[id number] Other: Voiding Method Urinal Toilet # Voids 2 - Exam Physical Examination General: The patient is awake and alert, in no acute distress Skin: Skin is warm and dry with no obvious rashes or lesions. Surgical incision to the lumbar spine, edges are well approximated with jalen intact. Dressing has been changed this morning 10/28/2022. Eye: Pupils are equal, round and reactive to light, extra-ocular movements are intact; there is normal conjunctiva bilaterally. Neck: The neck is supple, there is no tenderness and ROM intact. Cardiovascular: There is a regular rate and rhythm. No murmur, rub or gallop is appreciated. Respiratory: Lungs are clear to auscultation, respirations are non-labored, breath sounds are equal. Gastrointestinal: Soft, non-distended, non-tender abdomen. Back: There is no tenderness to palpation in the midline, paralumbar, p arathoracic or buttocks region. There is no obvious deformity . Musculoskeletal: ROM limited secondary to pain and stiffness from surgical procedure. Muscle strength in all major muscle groups of bilateral upper extremities 5/5, bilateral lower extremities 4/5. Neurological: CN 2-12 intact. There are no obvious motor or sensory deficits. Movement and coordination equal and intact. Sensory exam to light touch intact C5-T1 and intact from L2-S1. Reflexes 2/4 in bilateral upper and lower extremit ies. Negative Hoffmans, babinski, and clonus signs. Psychiatric: Cooperative, appropriate mood & affect, normal judgment. - Labs CBC & Chem 7: 10/27/22 07:04 10/27/22 07:04 Assessment and Plan Assessment: Postop day 3: L4-S1 open posterior lumbar interbody fusion. 1. L4-S1 spondylosis with stenosis 2. L4-S1 disc degeneration 3. Lower extremity radiculopathy 4. Lower extremity weakness 5. S/P L4-5 laminectomy Plan: -Appreciate data center consultant and team management. -Activity: Ambulate QID, OOB all meals, up and about, limit lifting bending twisting to less than 5 lbs. Use walker or cane if needed for stability. -Daily PT/OT, increase ambulation strength and balance. -Brace when up and about, not needed in bed or chair -Pain control: Adequate at this time -Meds: reviewed -GI ppx: senna, Miralax -DVT PPX: Heparin -Hygiene: Shower today. Maintain dressing clean and dry. Change dressing as needed. Meticulous cleaning after BMs away from the incision site -Encourage IS 10x/hr -Dispo: Anticipate discharge home Saturday with homecare 10/29/2022. *I reviewed and discussed this case with my attending Dr. Sparks, whom has reviewed this chart and films and is in agreement with assessment and plan of care as outlined above. I have personally seen and examined the patient, performed the documentation and the assessment and plan as written. Number of minutes spent on the visit: 20m.
[2022-10-28] MEDS: hydrOXYzine pamoate 25 MG CAP PO PRN ×2 (14:50→20:19)
[2022-10-28] MEDS: MIRTAZAPINE 15 MG TAB PO SCH (20:26)
--- NOTE | 2022-10-28 23:52 | PN ---
PROGRESS NOTE DATE OF SERVICE: 10/28/2022 SUBJECTIVE: This is a 57-year-old gentleman who was admitted after back surgery, is complaining of some anxiety. No chest pain. No palpitation. OBJECTIVE: VITAL SIGNS: Pulse is 76, blood pressure 104/62, respirations 17. CHEST: Clear to auscultation. CARDIOVASCULAR: S1, S2. ABDOMEN: Soft. LEGS: No edema. No swelling. BACK: Status post surgery. LABORATORY DATA: Reviewed. ASSESSMENT: 1. Status post L4-L5 and L5-S1 lumbar surgery infusion. 2. History of EtOH. 3. Anxiety. 4. Hypertension. 5. Hyperlipidemia. 6. Chronic obstructive pulmonary disease. 7. Multiple medical issues. RECOMMENDATIONS: Recommend to continue current management and symptomatic treatment. Continue CIWA protocol. Otherwise, recommend Ativan p.r.n. Closely follow with Orthopedic Surgery. DVT prophylaxis. MMSONALL / JOSEPHN: [phone] /
[2022-10-29] MEDS: oxyCODONE-APAP 7.5-325MG 1 EACH TAB PO SCH ×4 (00:22→12:25)
[2022-10-29] MEDS: hydrOXYzine pamoate 25 MG CAP PO PRN (02:32)
[2022-10-29] MEDS: LACTATED RINGERS 1,000 ML IV SCH ×2 (06:07)
--- NOTE | 2022-10-29 06:39 | P.PN ---
Subjective Progress Note Date: 10/29/22 Principal diagnosis: 1. L4-S1 spondylosis with stenosis 2. L4-S1 disc degeneration 3. Lower extremity radiculopathy 4. Lower extremity weakness 5. S/P L4-5 laminectomy Patient seen and examined this morning. Patient is laying on his left side resting in bed. Pateint continues to have c/o low back pain. He does report difficulty getting up and about last night, unable to describe what limitations he had at that time. Discussed pain management and to continue to utilize ice therapy as well to assist decreasing pain and swelling. Surgical incision to the lumbar spine, incision is well approximated with jalen intact. Sangeous d rainage from incision, dressing has been changed this morning 10/29/22. Drainage does seem to be decreasing. Change dressing as needed. LSO brace is present at bedside. Patient has been afebrile, denies nausea/vomiting, or chest pain. Pateint is wanting to be discharged home with homecare vs [facility] today. No acute concerns at this time. Objective - Vital Signs Vital signs: Vital Signs Temp 98.2 F 10/29/22 00:14 Pulse 64 10/29/22 00:14 Resp 16 10/29/22 00:14 BP 134/75 10/29/22 00:14 Pulse Ox 96 10/29/22 00:14 FiO2 Intake & Output 10/28/22 10/28/22 10/29/22 06:59 18:59 06:59 Intake Total 160 Balance 160 Intake: Intake, IV Titration 160 Amount Lactated Ringers 1,000 ml 160 @ 20 mls/hr IV .Q24H [facility] Rx#:[id number] Other: Voiding Method Toilet # Voids 2 3 - Exam Physical Examination General: The patient is awake and alert, in no acute distress Skin: Skin is warm and dry with no obvious rashes or lesions. Surgical incision to the lumbar spine, edges are well approximated with jalen intact. Dressing has been changed this morning 10/29/2022. Eye: Pupils are equal, round and reactive to light, extra-ocular movements are intact; there is normal conjunctiva bilaterally. Neck: The neck is supple, there is no tenderness and ROM intact. Cardiovascular: There is a regular rate and rhythm. No murmur, rub or gallop is appreciated. Respiratory: Lungs are clear to auscultation, respirations are non-labored, breath sounds are equal. Gastrointestinal: Soft, non-distended, non-tender abdomen. Back: There is no tenderness to palpation in the midline, paralumbar, parathoracic or buttocks region. There is no obvious deformity . Musculoskeletal: ROM limited secondary to pain and stiffness from surgical procedure. Muscle strength in all major muscle groups of bilateral upper extremities 5/5, bilateral lower extremities 4/5. Neurological: CN 2-12 intact. There are no obvious motor or sensory deficits. Movement and coordination equal and intact. Sensory exam to light touch intact C5-T1 and intact from L2-S1. Reflexes 2/4 in bilateral upper and lower extremities. Negative Hoffmans, babinski, and clonus signs. Psychiatric: Cooperative, appropriate mood & affect, normal judgment. - Labs CBC & Chem 7: 10/27/22 07:04 10/27/22 07:04 Assessment and Plan Assessment: Postop day 4: L4-S1 open posterior lumbar interbody fusion. 1. L4-S1 spondylosis with stenosis 2. L4-S1 disc degeneration 3. Lower extremity radiculopathy 4. Lower extremity weakness 5. S/P L4-5 laminectomy Plan: -Appreciate sustainability consultant and team management. -Activity: Ambulate QID, OOB all meals, up and about, limit lifting bending twisting to less than 5 lbs. Use walker or cane if needed for stability. -Daily PT/OT, increase ambulation strength and balance. -Brace when up and about, not needed in bed or chair -Pain control: Adequate at this time -Meds: reviewed -GI ppx: senna, Miralax -DVT PPX: Heparin -Hygiene: Shower today. Maintain dressing clean and dry. Change dressing as needed. Meticulous cleaning after BMs away from the incision site -Encourage IS 10x/hr -Dispo: Anticipate discharge home Saturday with homecare vs [facility] 10/29/2022. *I reviewed and discussed this case with my attending Dr. Sparks, whom has reviewed this chart and films and is in agreement with assessment and plan of care as outlined above. I have personally seen and examined the patient, performed the documentation and the assessment and plan as written. Number of minutes spent on the visit: 20m.
[2022-10-29 07:04] LABS: HCT 37.5 % (39.0-53.0); HGB 11.8 gm/dL (13.0-17.5); MCHC 31.4 g/dL (31.0-37.0); MCV 101.6 fL (80.0-100.0); Macrocytosis Slight; Platelet Count 238 k/uL (150-450); RBC 3.69 m/uL (4.30-5.90); WBC 7.3 k/uL (3.8-10.6)
[2022-10-29 07:43] VITALS: BP 144/89; PULSE 80; RESP 17; TEMP 98.7
[2022-10-29] MEDS: SYMBICORT 80-4.5 MCG INHALER INHALATION SCH (07:45)
[2022-10-29] MEDS: IPRATROPIUM-ALBUTEROL 3 ML NEB INHALATION SCH ×2 (07:48→11:15)
[2022-10-29] MEDS: NICOTINE 14MG/24HR PATCH TRANSDERM SCH (08:02)
[2022-10-29] MEDS: ASPIRIN 81 MG PO SCH (08:03)
[2022-10-29] MEDS: HEPARIN SODIUM,PORCINE 5,000 UNIT/ML 1 ML VIAL SQ SCH ×2 (08:03→08:38)
[2022-10-29] MEDS: GABAPENTIN 300 MG CAP PO SCH (08:03)
[2022-10-29] MEDS: ATORVASTATIN 20 MG TAB PO SCH (08:03)
[2022-10-29] MEDS: CYCLOBENZAPRINE 10 MG TAB PO SCH (08:03)
[2022-10-29] MEDS: SERTRALINE 100 MG TAB PO SCH (08:03)
[2022-10-29] MEDS: LOSARTAN 50 MG TAB PO SCH (08:03)
[2022-10-29] MEDS: MULTIVITAMINS, THERA 1 EACH TAB PO SCH (08:03)
[2022-10-29] MEDS: SENNOSIDES-DOCUSATE SODIUM 1 EACH TAB PO SCH (08:03)
[2022-10-29] MEDS: METOPROLOL TARTRATE 25 MG TAB PO SCH (08:03)
[2022-10-29] MEDS: allopurinoL 100 MG TAB PO SCH (08:04)
[2022-10-29] MEDS: hydrALAZINE HCL 25 MG TAB PO SCH (08:04)
[2022-10-29] MEDS: busPIRone HCl 10 MG TAB PO SCH (08:04)
[2022-10-29] MEDS: THIAMINE 100 MG TAB PO SCH (08:04)
--- NOTE | 2022-10-29 13:25 | P.DS ---
Providers Date of admission: 10/25/22 10:09 Expected date of discharge: 10/29/22 Attending physician: Dallin Sparks DO Consults: 10/25/22 16:26 Consult Physician Routine Consulting Provider: Lawrence Pollock Reason/Comments: Medical Management Do you want consulting provider notified?: Yes Primary care physician: Florencio Goodman Hospital Course: Hospital Course: The patient was evaluated preoperatively and found to have the diagnosis of lumbar spondylosis. They underwent appropriate preoperative care and were willing to undergo the intended procedure. They underwent a successful L4-S1 PLIF, were recovered appropriately and sent to the floor. While on the floor they worked with physical therapy, occupational therapy and nursing to enhance their recovery experience. Their pain was well controlled through their stay and they were started on appropriate medications, DVT ppx modalities, activity and dietary needs. Daily labs were monitored closely, and transfusions were only used when necessary. Medicine as well as other consulting services have made their input and have helped with our team approach and multidisciplinary care. PT milestones have been met and passed and they have made the recommendation of home for this patient and treating providers agree with this care path. The patient will be discharged home with appropriate medications, instructions and follow-up information and in stable condition. Patient Condition at Discharge: Good Plan - Discharge Summary Discharge Rx Participant: Yes New Discharge Prescriptions: New Sennosides/Docusate Sodium [Senna Plus 8.6-50 mg Softgel] 1 each PO DAILY PRN #20 capsule PRN Reason: Constipation cefaDROXiL [Duricef] 500 mg PO Q12HR 10 Days #20 cap Cyclobenzaprine [Flexeril] 10 mg PO TID PRN #90 tab PRN Reason: Muscle Spasm oxyCODONE-APAP 7.5-325MG [Percocet 7.5-325 mg] 1 tab PO Q4HR PRN #42 tab PRN Reason: Pain hydrOXYzine pamoate [Vistaril] 50 mg PO Q6H PRN #56 capsule PRN Reason: Anxiety Thiamine [Vitamin B-1] 100 mg PO DAILY #30 tab Continue Mirtazapine [Remeron] 15 mg PO HS 30 Days tab allopurinoL 100 mg PO DAILY Rosuvastatin [Crestor] 10 mg PO DAILY Losartan [Cozaar] 50 mg PO DAILY Aspirin [Adult Low Dose Aspirin EC] 81 mg PO DAILY Sertraline [Zoloft] 150 mg PO DAILY hydrALAZINE HCL [Apresoline] 25 mg PO BID #60 tab busPIRone HCL 15 mg PO BID Metoprolol Tartrate [Lopressor] 25 mg PO BID Gabapentin 600 mg PO TID Fluticasone/Umeclidin/Vilanter [Trelegy Ellipta 100-62.5-25] 1 inhalation INHALATION DAILY Albuterol Sulfate (Bottle) [Ventolin] 2.5 mg INHALATION QID Multivitamins, Thera [Multivitamin (formulary)] 1 tab PO DAILY Discontinued HYDROcodone/APAP 7.5-325MG [[place] 7.5-325] 1 tab PO TID PRN PRN Reason: Pain tiZANidine [Zanaflex] 4 mg PO TID Ibuprofen [Motrin] 800 mg PO Q8H PRN PRN Reason: Pain Discharge Medication List Mirtazapine [Remeron] 15 mg PO HS 30 Days tab 05/24/21 [Rx] allopurinoL 100 mg PO DAILY 11/06/21 [History] Sertraline [Zoloft] 150 mg PO DAILY 12/08/21 [History] Rosuvastatin [Crestor] 10 mg PO DAILY 12/18/21 [History] hydrALAZINE HCL [Apresoline] 25 mg PO BID #60 tab 12/22/21 [Rx] Losartan [Cozaar] 50 mg PO DAILY 03/08/22 [History] busPIRone HCL 15 mg PO BID 03/08/22 [History] Metoprolol Tartrate [Lopressor] 25 mg PO BID 03/20/22 [History] Gabapentin 600 mg PO TID 09/01/22 [History] Albuterol Sulfate (Bottle) [Ventolin] 2.5 mg INHALATION QID 10/19/22 [History] Aspirin [Adult Low Dose Aspirin EC] 81 mg PO DAILY 10/19/22 [History] Fluticasone/Umeclidin/Vilanter [Trelegy Ellipta 100-62.5-25] 1 inhalation INHALATION DAILY 10/19/22 [History] Multivitamins, Thera [Multivitamin (formulary)] 1 tab PO DAILY 10/19/22 [History] Cyclobenzaprine [Flexeril] 10 mg PO TID PRN #90 tab 10/29/22 [Rx] Sennosides/Docusate Sodium [Senna Plus 8.6-50 mg Softgel] 1 each PO DAILY PRN #20 capsule 10/29/22 [Rx] Thiamine [Vitamin B-1] 100 mg PO DAILY #30 tab 10/29/22 [Rx] cefaDROXiL [Duricef] 500 mg PO Q12HR 10 Days #20 cap 10/29/22 [Rx] hydrOXYzine pamoate [Vistaril] 50 mg PO Q6H PRN #56 capsule 10/29/22 [Rx] oxyCODONE-APAP 7.5-325MG [Percocet 7.5-325 mg] 1 tab PO Q4HR PRN #42 tab 10/29/22 [Rx] Follow up Appointment(s)/Referral(s): Dallin Sparks DO [Doctor of Osteopathic Medicine] - 11/08/22 10:30 am [facility] Nurse, [NON-STAFF] - As Needed Jorge Luis Saini [NON-STAFF] - As Needed (will deliver lso brace to floor, any questions please call agency. ) Activity/Diet/Wound Care/Special Instructions: Spine Discharge and Recovery Instructions Date of Surgery: 10/25/2022 Diagnosis: Lumbar spondylosis Procedure: L4-S1 open posterior lateral interbody fusion Medications: See medication list All medication refills should be obtained through your primary care doctor or your clinic spine surgeon. Please discuss prescription refills at your follow up appointment. Do not call the hospital for medication refills. Dressing: Leave your dressing in place for a total of 5 days post operatively. Then you may remove your dressing and leave open to air. Keep the area clean and if not able to keep area clean, then cover with sterile gauze and tape. Showering: You may shower 3 days after your procedure allowing soap and water to run over incision. Do not scrub. Do not soak. Blot dry. Follow up: Please confirm a follow up appointment with your surgeon 3 weeks post operatively. Please make an appointment to follow up with your PCP in 1-2 weeks after surgery for evaluation 3 phase, 3-week plan POST OP WEEKS 1-3 1. Lifting/carrying/pushing/pulling limited to less than 5 pounds. 2. Do not sit for longer than 15 minutes at one time. Get up and walk around. Prolonged sitting is NOT advised. If you lay down, see if you can tolerate laying down on you front (belly side) 3. Walk for periods of 15 minutes = 1 mile but no longer; do it multiple times times each day. 4. Ice your low back after activity. POST OP WEEKS 3-6 1. Lifting limited to less than 20 pounds. 2. Do not sit for longer than 30 minutes at a time. Frequently change positions. Use a sit-to stand workstation or take frequent breaks from sitting if you have returned to work. 3. Walk for 30 minutes each day. If possible, do these three or more times a day POST OP WEEKS 6+ At your 6-week appointment we will give you a physical therapy referral to focus on a core stabilization and strengthening program. You should also work on leg & buttock strengthening, hamstring & quadriceps stretching, and continue a low impact aerobic activity program such as swimming, walking, or riding a stationary bicycle. During the initial 6 weeks after your surgery, you are at the highest risk of re-injuring your spine. You should generally avoid BLTs (bending, lifting and twisting combination motions) and follow the above guidelines to reduce the chance of reinjury. You can anticipate post op appointments in our office at approximately 3 weeks and 6 weeks after your surgery. INCISION CARE: If your incision is not draining you do NOT need to cover it with a dressing. Keep your incision clean, dry and intact. In most cases, we apply skin glue, jalen or sutures to the incision at the time of surgery. This will be like a crust or have the appearance of a scab and will fall off in time on its own. The stitches or jalen need to be removed at 3 weeks post op appointment. You may begin to shower 3 days after surgery (this allows the glue to barrios well). However, please avoid scrubbing the incision site or peeling off any of the skin glue. This will ensure optimal healing of your incision. Also, during this time avoid soaking the incision area in water - this includes swimming pools, hot tubs or baths. No ointments, lotions or oils on the incision until your surgeon allows. Leave jalen, sutures or glue in place. Neurological dysfunction that comes on suddenly can also be a sign of a stroke. Below some common symptoms of a stroke are listed: B - balance difficulty such as sudden onset walking or leaning to one side - NEW E - eye problem such as sudden double vision or trouble seeing on one side - NEW F - Facial weakness or numbness on one side - NEW A - Arm or leg weakness or numbness on one side - NEW S - Slurred speech or difficulty with word finding - NEW T - Time is BRAIN! Call 911 as soon as you recognize these symptoms Diet: Consume a regular diet rich in vegetables and lean protein such as chicken or fish. You should consume in a ratio of approximately 20% fats|40% carbohydrates|40%protein. Vegetables, sweet potatoes, brown rice or quinoa are examples of good carbohydrates. Chips, white bread, cookies and sweets/sugar are examples of bad carbohydrates. Limit your bad carbs, go wild with good carbs. "Life's Simple 7" Guidelines as per [place] [employer] These will help you reclaim your life after surgery and slitter creaser slotter helper in your recovery, keeping in mind your restrictions. (1) Get Active. Physical activity can help people lose weight, control high blood pressure and cholesterol, feel emotionally better, and sleep better. (2) Control Cholesterol. Avoid a diet high in saturated fat, trans fat, & cholesterol. Limit whole milk & cream, ice cream, butter, egg yolks, processed meats (like sausage and hot dogs), and fatty meats. Choose healthy foods that are low in saturated fat, trans fat and cholesterol which include: Fruits and vegetables, fiber rich grain products (like whole grain pasta and brown rice), lean meat such as chicken, fish, nuts, seeds, and legumes. (3) Eat Better. Eat small portions. Shop at the grocery with a list and do not stray from it. Tips for a healthy diet include: Limit sodium intake to less than 1500mg daily, avoid prepackaged, processed, and fast foods, choose a diet rich in fruits, vegetables, and whole grain, high fiber foods, and limit saturated & cholesterol in your diet. (4) Manage Blood Pressure. If you have high blood pressure, you should have a cuff at home so that you can check your blood pressure regularly. Be sure you have a good cuff. An arm one is generally better than a wrist one. Bring the cuff to a doctor's appointment to validate that the measurements that your cuff are taking are accurate. Take your blood pressure twice daily when you are sitting down and relaxing. Record the numbers in a log and bring this log with you to your doctors' appointments. (5) Lose Weight if your BMI is above 25. A healthy BMI is between 19-25. To calculate Your BMI, you may use a Standard BMI Calculator on the NIH BMI website: <www.nhlbi.nih.gov/guidelines/obesity/BMI/bmicalc.htm>. Weigh oneself daily. If you are overweight, set a goal to lose weight. A pound a week loss if needed is a good target. (6) Reduce Blood Sugar. Limit foods and liquids with "added sugars." (Added sugars include sucrose, fructose, glucose, maltose, dextrose, high fructose corn syrup, corn syrup, concentrated fruit juice and honey). (7) Stop Smoking. If you smoke, quitting smoking is one of the best things that you can do for your health. Smoking increases your risk of heart attack, stroke, and peripheral vascular disease, which is a build-up of plaque in your arteries. Please discard all the cigarettes and lighters in your house. Have a plan for what you will do when you have the urge to smoke. Direct and second- hand smoke shortens your life as well as the lives of your family, friends and others around you. For your health and the health of those around you, please consider quitting! Proper Bending Body Mechanics: Maintain a wide stance with one foot slightly in front of the other. Keep your back straight. Bend utilizing the strength in your hips and knees. Do not bend at the waist. Maintain the lifted object at your waist-level close to your body. Avoid lifting weight that causes immediately pain or pain anywhere in the body afterwards. Smoking/Nicotine If there was ever one thing that you could do to increase your overall health, decrease your risk of cardiovascular problems by about 39% the second you make the choice, it is to STOP SMOKING. Your body's most instant gratification is the second you stop smoking. We have all heard the studies, read the articles but it is true, smoking is extremely bad for your overall health, and moreover it is detrimental to your bone health. Nicotine, IN ANY FORM, kills bone cells, prevents your body from healing fractures, and significantly prolongs healing after surgery. In spine surgery specifically, it increases your risk of not healing your bones to create a fusion and increases your risk of having a revision surgery due to this up to 60%. I know it is hard. I know it feels impossible. But there are ways. Take control of your life. We are here to help you through it. And when you are ready, ask us and we can direct you to help if you desire. Use the START Plan to Quit Smoking (please visit the Helpguide.org website listed below for more information): S = Set a quit date. Choose a date within the next 2 weeks, so you have enough time to prepare without losing your motivation to quit. If you mainly smoke at work, quit on the weekend, so you have a few days to adjust to the change. T = Tell family, friends, and co-workers that you plan to quit. Let your friends and family in on your plan to quit smoking and tell them you need their support and encouragement to stop. Look for a quit alisha who wants to stop smoking as well. You can help each other get through the rough times. A = Anticipate and plan for the challenges you'll face while quitting. Most people who begin smoking again do so within the first 3 months. You can help yourself make it through by preparing ahead for common challenges, such as nicotine withdrawal and cigarette cravings. R = Remove cigarettes and other tobacco products from your home, car, and work. Throw away all your cigarettes (no emergency pack!), lighters, ashtrays, and matches. Wash your clothes and freshen up anything that smells like smoke. Shampoo your car, clean your drapes and carpet, and steam your furniture. T = Talk to your doctor about getting help to quit. Your doctor can prescribe medication to help with withdrawal and suggest other alternatives. If you can't see a doctor, you can get many products over the counter at your local pharmacy or grocery store, including the nicotine patch, nicotine lozenges, and nicotine gum. Resources for Quitting Smoking: <https://www.[place].gov/documents/[facility]/Quit_Tobacco_Resources_for_patients_313 480_7.pdf> Supplementation: Take recommended dosages of Vitamin D and Calcium to help fortify your bones and help them to heal. See your health maintenance packet for dosages and recommended levels. DVT/VTE prophylaxis: You will be given compression stockings from the hospital. Wear these daily for the first two weeks after surgery. You may take them off at night. You may be prescribed a medication to help thin your blood. Take this as directed. If you are not prescribed this medication, early and frequent ambulation has been shown to be the best prophylaxis to deep vein thrombosis and sequelae related to this event. 10/25/2022 Discharge Disposition: HOME WITH HOME HEALTH SERVICES
--- NOTE | 2022-11-16 11:35 | CDI ---
Documentation Clarification Form Date: 11/16/2022 11:19:00 AM From: Zena Lobo Phone: Admit Date: 10/25/2022 10:09:00 AM Patient Name: Medardo Galan Visit Number: [id number] Discharge Date: 10/29/2022 02:49:00 PM ATTENTION: The Clinical Documentation Specialists (CDI) and [facility] Coding Staff appreciate your assistance in clarifying documentation. Please respond to the clarification below the line at the bottom and electronically sign. The CDI & [facility] Coding staff will review the response and follow-up if needed. Please note: Queries are made part of the Legal Health Record. If you have any questions, please contact the author of this message via ITS. Dr. Dallin Sparks Duralerosionis documented per OP Note which may lack sufficient clinical evidence/support in the medical record. Additional clarification is requested. History/Risk Factors: 48yo M, spondylosis w DDD L4-S1, stenosis, radiculopathy, Clinical Indicators: DuralerosionL5-S1 was encountered likely from previousCTmyelogram or surgery Treatment: Repair of Dural leak with fat patch graft; Valsalva to 40 mmHg after showed noleak. Please clarify if spinal cerebrospinal fluid leak is a valid diagnosis? [ ] Yes, Other spinal cerebrospinal fluid leak is present as evidence by (please provide additional clinical support): [ ] No, Other spinal cerebrospinal fluid leak is ruled out [ ] Other (please specify diagnosis) [ ] Unable to determine (Template Last Revised: April 2020) Yes, Other spinal cerebrospinal fluid leak as evidence by direct visualization during surgery and as documented in surgical op report body. MIRIAMD
== END 2022-10-29 14:49 | disposition home health service (06) | DRG 454 ==
LOC: OR 10:08 → OBSVTOIN 10:09 → 4SSUR 10:09
PROVIDERS: ADMIT Orthopaedic Surgery; ATTEND Orthopaedic Surgery
PROC: 0SG0071 Fusion of Lumbar Vertebral Joint with Autologous Tissue Substitute, Posterior Approach, Posterior Column, Open Approach (ICD-10-PCS; 2022-10-25)
PROC: 0QS10ZZ Reposition Sacrum, Open Approach (ICD-10-PCS; 2022-10-25)
PROC: 0SG30AJ Fusion of Lumbosacral Joint with Interbody Fusion Device, Posterior Approach, Anterior Column, Open Approach (ICD-10-PCS; 2022-10-25)
PROC: 0QS00ZZ Reposition Lumbar Vertebra, Open Approach (ICD-10-PCS; 2022-10-25)
PROC: 0SG3071 Fusion of Lumbosacral Joint with Autologous Tissue Substitute, Posterior Approach, Posterior Column, Open Approach (ICD-10-PCS; 2022-10-25)
PROC: 01NB0ZZ Release Lumbar Nerve, Open Approach (ICD-10-PCS; 2022-10-25)
PROC: 01NR0ZZ Release Sacral Nerve, Open Approach (ICD-10-PCS; 2022-10-25)
PROC: 00UT07Z Supplement Spinal Meninges with Autologous Tissue Substitute, Open Approach (ICD-10-PCS; 2022-10-25)
PROC: 8E0WXBF Computer Assisted Procedure of Trunk Region, With Fluoroscopy (ICD-10-PCS; 2022-10-25)
PROC: 0SG00AJ Fusion of Lumbar Vertebral Joint with Interbody Fusion Device, Posterior Approach, Anterior Column, Open Approach (ICD-10-PCS; principal; 2022-10-25 12:00)
DX: M51.16 Intervertebral disc disorders with radiculopathy, lumbar region (principal); G96.09 Other spinal cerebrospinal fluid leak; G96.11 Dural tear; J44.9 Chronic obstructive pulmonary disease, unspecified; I10 Essential (primary) hypertension; F10.11 Alcohol abuse, in remission; E78.5 Hyperlipidemia, unspecified; M47.26 Other spondylosis with radiculopathy, lumbar region; M48.061 Spinal stenosis, lumbar region without neurogenic claudication; M47.27 Other spondylosis with radiculopathy, lumbosacral region; M48.07 Spinal stenosis, lumbosacral region; M85.88 Other specified disorders of bone density and structure, other site; G47.9 Sleep disorder, unspecified; F17.210 Nicotine dependence, cigarettes, uncomplicated; F41.9 Anxiety disorder, unspecified; M47.812 Spondylosis without myelopathy or radiculopathy, cervical region; Y84.8 Other medical procedures as the cause of abnormal reaction of the patient, or of later complication, without mention of misadventure at the time of the procedure; Z87.19 Personal history of other diseases of the digestive system; Z79.899 Other long term (current) drug therapy; Z79.82 Long term (current) use of aspirin; Z79.51 Long term (current) use of inhaled steroids; Z88.8 Allergy status to other drugs, medicaments and biological substances
CPT/HCPCS: 72100; 72131; 80048; 80053; 85025; 85027; 85610; 85730; 86850; 86900; 86901; 94640; 94760

== ENCOUNTER 2023-01-11 15:14 | Emergency (ER) | payer MEDICARE, OTHER ==
[2023-01-11] MEDS ORDERED: LORazepam 2 MG/ML INJ IV PRN (16:17)
[2023-01-11] MEDS ORDERED: SODIUM CHLORIDE 0.9% 1,000 ML IV ONE (16:17)
[2023-01-11] MEDS ORDERED: THIAMINE 100 MG/ML 2 ML VIAL IM STA (16:17)
--- NOTE | 2023-01-11 16:19 | ED ---
General Adult HPI - General Chief complaint: Alcohol Stated complaint: Mental Health Time Seen by Provider: 01/11/23 16:01 Source: patient, RN notes reviewed, old records reviewed Mode of arrival: ambulatory Limitations: no limitations - History of Present Illness Initial comments: 57-year-old male presenting with suicidal ideation, suicidal thoughts and depression. Patient is a daily drinker. He states he's dealing with withdrawal symptoms last drink was this morning at 6 AM. Patient drinks at least a fifth of whiskey every day. He denies any acute physical complaints. - Related Data Home Medications Medication Instructions Recorded Confirmed allopurinoL 100 mg PO DAILY 11/06/21 01/11/23 Sertraline [Zoloft] 150 mg PO DAILY 12/08/21 01/11/23 Rosuvastatin [Crestor] 10 mg PO DAILY 12/18/21 01/11/23 Losartan [Cozaar] 50 mg PO DAILY 03/08/22 01/11/23 Gabapentin 600 mg PO TID 09/01/22 01/11/23 Aspirin [Adult Low Dose Aspirin EC] 81 mg PO DAILY 10/19/22 01/11/23 Fluticasone/Umeclidin/Vilanter 1 puff INHALATION RT-DAILY 10/19/22 01/11/23 [Trelegy Ellipta 100-62.5-25] Multivitamins, Thera [Multivitamin 1 tab PO DAILY 10/19/22 01/11/23 (formulary)] Albuterol Inhaler [Ventolin Hfa 2 puff INHALATION RT-QID PRN 01/11/23 01/11/23 Inhaler] Albuterol Nebulized [Ventolin 2.5 mg INHALATION RT-QID 01/11/23 01/11/23 Nebulized] Metoprolol Tartrate [Lopressor] 25 mg PO BID 01/11/23 01/11/23 oxyCODONE-APAP 7.5-325MG [Percocet 1 tab PO TID PRN 01/11/23 01/11/23 7.5-325 mg] Previous Rx's Medication Instructions Recorded Mirtazapine [Remeron] 15 mg PO HS 30 Days tab 05/24/21 hydrALAZINE HCL [Apresoline] 25 mg PO BID #60 tab 12/22/21 Cyclobenzaprine [Flexeril] 10 mg PO TID PRN #90 tab 10/29/22 Allergies Allergy/AdvReac Type Severity Reaction Status Date / Time clonidine [From Catapres] AdvReac Vomiting Verified 01/11/23 22:56 Review of Systems ROS Statement: Those systems with pertinent positive or pertinent negative responses have been documented in the HPI. ROS Other: All systems not noted in ROS Statement are negative. Past Medical History Past Medical History: Hypertension Additional Past Medical History / Comment(s): Hx ETOH abuse, past withdrawal per pt with shaking/nausea and diarrhea, pancreatitis, diverticulitis, chronic cervical/back pain/DDD and cervical spondylosis, bronchitis. History of Any Multi-Drug Resistant Organisms: C-DIFF Date of last positivie culture/infection: 2005 MDRO Source:: stool Past Surgical History: Bowel Resection Additional Past Surgical History / Comment(s): Bowel resection with 10 inches removed d/t diverticulitis, colonoscopy, hx c-diff 2005., benign lump removed from scrotum, left rotator cuff repair, right rotator cuff repair x2., pain clinic procedures., carpal tunnel on wrists and elbow heather., cervical fusion Nov 2021., lumbar fusion 10/25/22 Past Anesthesia/Blood Transfusion Reactions: No Reported Reaction Past Psychological History: Anxiety, Bipolar, Depression Smoking Status: Current every day smoker Past Alcohol Use History: Abuse, Daily, Heavy Past Drug Use History: Marijuana - Past Family History Father Family Medical History: Congestive Heart Failure (CHF) Additional Family Medical History / Comment(s): Father was healthy. Mother Family Medical History: Congestive Heart Failure (CHF) General Exam Limitations: no limitations General appearance: alert, in no apparent distress Head exam: Present: atraumatic, normocephalic Eye exam: Present: normal appearance, PERRL ENT exam: Present: mucous membranes dry Neck exam: Present: normal inspection. Absent: tenderness, meningismus Respiratory exam: Present: normal lung sounds bilaterally. Absent: respiratory distress, wheezes Cardiovascular Exam: Present: normal rhythm, tachycardia GI/Abdominal exam: Present: soft. Absent: distended, tenderness, guarding Extremities exam: Present: normal inspection Neurological exam: Present: alert, oriented X3, CN II-XII intact. Absent: motor sensory deficit Psychiatric exam: Present: normal affect, normal mood Skin exam: Present: warm, dry, intact. Absent: cyanosis, diaphoretic Course Vital Signs 01/11/23 01/11/23 01/12/23 15:50 19:00 01:59 Temperature 99.0 F Pulse Rate 129 H 105 H 71 Respiratory 18 16 18 Rate Blood Pressure 97/60 167/91 163/82 O2 Sat by Pulse 96 97 97 Oximetry 01/12/23 01/12/23 01/12/23 07:41 09:36 10:00 Temperature Pulse Rate 73 74 Respiratory 18 18 18 Rate Blood Pressure 159/75 170/89 O2 Sat by Pulse 98 Oximetry 01/12/23 01/12/23 01/12/23 11:00 14:13 15:23 Temperature 98.3 F Pulse Rate 84 Respiratory 18 18 16 Rate Blood Pressure 161/93 O2 Sat by Pulse 95 Oximetry 01/12/23 01/13/23 01/13/23 16:56 06:32 09:49 Temperature 97.8 F 98.6 F 98.2 F Pulse Rate 96 88 85 Respiratory 16 18 18 Rate Blood Pressure 171/103 168/89 138/84 O2 Sat by Pulse 95 98 98 Oximetry Medical Decision Making - Medical Decision Making Was pt. sent in by a medical professional or institution (, PA, BALL WINDER, urgent care, hospital, or jail...) When possible be specific @ -[No] Did you speak to anyone other than the patient for history (EMS, parent, family, police, friend...)? What history was obtained from this source @ -[No] Did you review nursing and triage notes (agree or disagree)? Why? @ -[I reviewed and agree with nursing and triage notes] Were old charts reviewed (outside hosp., previous admission, EMS record, old EKG, old radiological studies, urgent care reports/EKG's, jail records)? Report findings @ -[No old charts were reviewed] Differential Diagnosis (chest pain, altered mental status, abdominal pain women, abdominal pain men, vaginal bleeding, weakness, fever, dyspnea, syncope, headache, dizziness, GI bleed, back pain, seizure, CVA, palpatations, mental health, musculoskeletal)? @ -Differential Mental Health Depression, anxiety, bipolar, psychosis, schizophrenia, borderline personality, situational depression, adjustment disorder, behavioral disorder, brain tumor, malingering, substance abuse, encephalopathy, medication reaction, dementia, hypothyroidism, degenerative neurologic disorder, lupus.... This is not meant to be all-inclusive list EKG interpreted by me (3pts min.). @ -[As above] X-rays interpreted by me (1pt min.). @ -[None done] CT interpreted by me (1pt min.). @ -[None done] U/S interpreted by me (1pt. min.). @ -[None done] What testing was considered but not performed or refused? (CT, X-rays, U/S, labs)? Why? @ -[None] What meds were considered but not given or refused? Why? @ -[None] Did you discuss the management of the patient with other professionals (professionals i.e. , PA, BALL WINDER, lab, RT, psych nurse, social media marketer, [employer]o [employer] founder, teacher, program officer, welfare case worker)? Give summary @ -[No] Was smoking cessation discussed for >3mins.? @ -[No] Was critical care preformed (if so, how long)? @ -[No] Were there social determinants of health that impacted care today? How? (Homelessness, low income, unemployed, alcoholism, drug addiction, transportation, low edu. Level, literacy, decrease access to med. care, penitentiary, rehab)? @ -[No] Was there de-escalation of care discussed even if they declined (Discuss DNR or withdrawal of care, Hospice)? DNR status @ -[No] What co-morbidities impacted this encounter? (DM, HTN, Smoking, COPD, CAD, Cancer, CVA, ARF, Chemo, Hep., AIDS, mental health diagnosis, sleep apnea, morbid obesity)? @ -Alcoholism Was patient admitted / discharged? Hospital course, mention meds given and [place], prescriptions, significant lab abnormalities, going to OR and other pertinent info. @ Patient observed in the emergency department awaiting sobriety, when sober he will be evaluated by EPS. Patient was observed in the emergency department with initial plan to transfer to inpatient psychiatric facility. However during a several day stay in the emergency department the patient's symptoms improved. He sober and now longer suicidal. He is requesting discharge. He has good follow-up with [facility]. The EPS nurse is able to discuss this with the on-call psychiatrist who does agree. Patient will be discharged at this time. - Lab Data Result diagrams: 01/11/23 17:29 01/11/23 17:29 Lab Results 01/11/23 01/11/23 01/11/23 Range/Units 17:29 17:29 17:29 WBC 5.6 (3.8-10.6) k/uL RBC 5.27 (4.30-5.90) m/uL Hgb 16.5 (13.0-17.5) gm/dL Hct 49.5 (39.0-53.0) % MCV 94.1 (80.0-100.0) fL MCH 31.3 (25.0-35.0) pg MCHC 33.2 (31.0-37.0) g/dL RDW 14.9 (11.5-15.5) % Plt Count 121 L (150-450) k/uL MPV 7.2 Neutrophils % 64 % Lymphocytes % 26 % Monocytes % 5 % Eosinophils % 2 % Basophils % 1 % Neutrophils # 3.6 (1.3-7.7) k/uL Lymphocytes # 1.5 (1.0-4.8) k/uL Monocytes # 0.3 (0-1.0) k/uL Eosinophils # 0.1 (0-0.7) k/uL Basophils # 0.0 (0-0.2) k/uL Sodium 140 (137-145) mmol/L Potassium 3.7 (3.5-5.1) mmol/L Chloride 103 (98-107) mmol/L Carbon Dioxide 16 L (22-30) mmol/L Anion Gap 21 mmol/L BUN 10 (9-20) mg/dL Creatinine 0.92 (0.66-1.25) mg/dL Est GFR (CKD-EPI)AfAm >90 (>60 ml/min/1.73 sqM) Est GFR (CKD-EPI)NonAf >90 (>60 ml/min/1.73 sqM) Glucose 127 H (74-99) mg/dL Calcium 9.0 (8.4-10.2) mg/dL Magnesium 1.8 (1.6-2.3) mg/dL Urine Opiates Screen Not Detected (NotDetected) Ur Oxycodone Screen Detected H (NotDetected) Urine Methadone Screen Not Detected (NotDetected) Ur Propoxyphene Screen Not Detected (NotDetected) Ur Barbiturates Screen Not Detected (NotDetected) U Tricyclic Antidepress Detected H (NotDetected) Ur Phencyclidine Scrn Not Detected (NotDetected) Ur Amphetamines Screen Not Detected (NotDetected) U Methamphetamines Scrn Not Detected (NotDetected) U Benzodiazepines Scrn Not Detected (NotDetected) Urine Cocaine Screen Not Detected (NotDetected) U Marijuana (THC) Screen Detected H (NotDetected) Serum Alcohol 269 H* mg/dL SARS-CoV-2 (PCR) (Not Detectd) 01/12/23 Range/Units 17:00 WBC (3.8-10.6) k/uL RBC (4.30-5.90) m/uL Hgb (13.0-17.5) gm/dL Hct (39.0-53.0) % MCV (80.0-100.0) fL MCH (25.0-35.0) pg MCHC (31.0-37.0) g/dL RDW (11.5-15.5) % Plt Count (150-450) k/uL MPV Neutrophils % % Lymphocytes % % Monocytes % % Eosinophils % % Basophils % % Neutrophils # (1.3-7.7) k/uL Lymphocytes # (1.0-4.8) k/uL Monocytes # (0-1.0) k/uL Eosinophils # (0-0.7) k/uL Basophils # (0-0.2) k/uL Sodium (137-145) mmol/L Potassium (3.5-5.1) mmol/L Chloride (98-107) mmol/L Carbon Dioxide (22-30) mmol/L Anion Gap mmol/L BUN (9-20) mg/dL Creatinine (0.66-1.25) mg/dL Est GFR (CKD-EPI)AfAm (>60 ml/min/1.73 sqM) Est GFR (CKD-EPI)NonAf (>60 ml/min/1.73 sqM) Glucose (74-99) mg/dL Calcium (8.4-10.2) mg/dL Magnesium (1.6-2.3) mg/dL Urine Opiates Screen (NotDetected) Ur Oxycodone Screen (NotDetected) Urine Methadone Screen (NotDetected) Ur Propoxyphene Screen (NotDetected) Ur Barbiturates Screen (NotDetected) U Tricyclic Antidepress (NotDetected) Ur Phencyclidine Scrn (NotDetected) Ur Amphetamines Screen (NotDetected) U Methamphetamines Scrn (NotDetected) U Benzodiazepines Scrn (NotDetected) Urine Cocaine Screen (NotDetected) U Marijuana (THC) Screen (NotDetected) Serum Alcohol mg/dL SARS-CoV-2 (PCR) Not Detected (Not Detectd) Disposition Clinical Impression: Depression Disposition: HOME SELF-CARE Condition: Fair Instructions (If sedation given, give patient instructions): Depression (ED) Additional Instructions: Please follow up with community mental health Is patient prescribed a controlled substance at d/c from ED?: No Referrals: Louis Boyer MD [Primary Care Provider] - 1-2 days Time of Disposition: 18:30
[2023-01-11] MEDS: LORazepam 2 MG/ML INJ IV PRN ×2 (17:42→21:15)
[2023-01-11 17:56] LABS: Basophils % (A) 1 %; Eosinophils # (A) 0.1 k/uL (0-0.7); Eosinophils % (A) 2 %; HCT 49.5 % (39.0-53.0); HGB 16.5 gm/dL (13.0-17.5); Lymphocytes # (A) 1.5 k/uL (1.0-4.8); Lymphocytes % (A) 26 %; MCH 31.3 pg (25.0-35.0); MCHC 33.2 g/dL (31.0-37.0); MCV 94.1 fL (80.0-100.0); Mean Platelet Volume 7.2; Monocytes # (A) 0.3 k/uL (0-1.0); Monocytes % (A) 5 %; Neutrophils # (A) 3.6 k/uL (1.3-7.7); Neutrophils % (A) 64 %; Platelet Count 121 k/uL (150-450); RBC 5.27 m/uL (4.30-5.90); RDW 14.9 % (11.5-15.5); WBC 5.6 k/uL (3.8-10.6)
[2023-01-11 18:21] LABS: African American GFR (CKD) >90 (>60 ml/min/1.73 sqM); Anion Gap 21 mmol/L; Blood Urea Nitrogen 10 mg/dL (9-20); Carbon Dioxide 16 mmol/L (22-30); Chloride 103 mmol/L (98-107); Glucose 127 mg/dL (74-99); Magnesium 1.8 mg/dL (1.6-2.3); Non-African American GFR(CKD) >90 (>60 ml/min/1.73 sqM); Potassium 3.7 mmol/L (3.5-5.1); Sodium 140 mmol/L (137-145)
[2023-01-11 18:28] LABS: Alcohol 269 mg/dL
[2023-01-11 19:19] LABS: Amphetamine Screen,Urine Not Detected (NotDetected); Benzodiazepines Screen,Urine Not Detected (NotDetected); Cocaine Screen,Urine Not Detected (NotDetected); Methadone Screen, Urine Not Detected (NotDetected); Opiate Screen,Urine Not Detected (NotDetected); Phencyclidine Screen,Urine Not Detected (NotDetected); Tricyclic Antidepressant,Urine Detected (NotDetected); Urn Cannabinoid Scrn Detected (NotDetected)
[2023-01-11 19:20] LABS: Barbiturate Screen,Urine Not Detected (NotDetected); Oxycodone Screen, Urine Detected (NotDetected)
[2023-01-11] MEDS ORDERED: IBUPROFEN 400 MG TAB PO STA (19:35)
[2023-01-11] MEDS ORDERED: oxyCODONE-APAP 7.5-325MG 1 EACH TAB PO STA (19:55)
[2023-01-12] MEDS: LORazepam 2 MG/ML INJ IV PRN ×7 (01:54→22:37)
[2023-01-12] MEDS ORDERED: ONDANSETRON 4 MG/2 ML VIAL IVP STA (05:10)
[2023-01-12] MEDS ORDERED: ALBUTEROL HFA INHALER INHALATION PRN (07:37)
[2023-01-12] MEDS: GABAPENTIN 300 MG CAP PO SCH ×3 (08:03→22:21)
[2023-01-12] MEDS: oxyCODONE-APAP 7.5-325MG 1 EACH TAB PO PRN ×2 (08:04→15:28)
[2023-01-12] MEDS: METOPROLOL TARTRATE 25 MG TAB PO SCH ×2 (08:04→22:21)
[2023-01-12] MEDS: CYCLOBENZAPRINE 10 MG TAB PO PRN ×2 (08:05→22:21)
[2023-01-12] MEDS: ATORVASTATIN 20 MG TAB PO SCH (08:05)
[2023-01-12] MEDS: THIAMINE 100 MG TAB PO SCH (08:05)
[2023-01-12] MEDS: SERTRALINE 100 MG TAB PO SCH (08:05)
[2023-01-12] MEDS: LOSARTAN 50 MG TAB PO SCH (08:05)
[2023-01-12] MEDS: hydrALAZINE HCL 25 MG TAB PO SCH ×2 (08:05→22:21)
[2023-01-12] MEDS ORDERED: NICOTINE 14MG/24HR PATCH TRANSDERM STA (19:17)
[2023-01-13] MEDS: LORazepam 2 MG/ML INJ IV PRN ×4 (04:14→15:49)
[2023-01-13 06:41] VITALS: RESP 18
[2023-01-13] MEDS: GABAPENTIN 300 MG CAP PO SCH ×2 (09:30→15:49)
[2023-01-13] MEDS: LOSARTAN 50 MG TAB PO SCH (09:30)
[2023-01-13] MEDS: METOPROLOL TARTRATE 25 MG TAB PO SCH (09:31)
[2023-01-13] MEDS: hydrALAZINE HCL 25 MG TAB PO SCH (09:31)
[2023-01-13] MEDS: CYCLOBENZAPRINE 10 MG TAB PO PRN ×2 (09:31→16:24)
[2023-01-13] MEDS: THIAMINE 100 MG TAB PO SCH (09:31)
[2023-01-13] MEDS: SERTRALINE 100 MG TAB PO SCH (09:31)
[2023-01-13] MEDS: ATORVASTATIN 20 MG TAB PO SCH (09:32)
[2023-01-13 09:57] VITALS: TEMP 98.2
[2023-01-13] MEDS ORDERED: NICOTINE 14MG/24HR PATCH TRANSDERM STA (11:34)
[2023-01-13] MEDS: oxyCODONE-APAP 7.5-325MG 1 EACH TAB PO PRN (11:43)
[2023-01-13 19:12] VITALS: BP 159/97; PULSE 135
== END 2023-01-13 18:55 | disposition home or self-care (01) ==
LOC: EC 15:14
DX: F32.A Depression, unspecified (principal); I10 Essential (primary) hypertension; F41.9 Anxiety disorder, unspecified; F17.200 Nicotine dependence, unspecified, uncomplicated; F12.90 Cannabis use, unspecified, uncomplicated; Z79.899 Other long term (current) drug therapy; Z88.8 Allergy status to other drugs, medicaments and biological substances; Z79.82 Long term (current) use of aspirin; Z20.822 Contact with and (suspected) exposure to COVID-19
CPT/HCPCS: 82075; 36415; 80048; 83735; 85025; 80306; 87635; 99284; 96374; 96376 ×13; 96361; 96372; 96375; G0480; S4990 ×2; J2060 ×3; J3411; J2405; 80320

== ENCOUNTER → 2023-02-27 | Outpatient (CLI) | payer MEDICARE ==
--- NOTE | 2023-03-04 20:25 | CTL ---
EXAMINATION TYPE: CT Low Dose Lung DATE OF EXAM: 02/27/2023 9:09 AM CLINICAL INDICATION:Male, 57 years old with history of Z12.2 LUNG CA SCREEN F7.210 HX NICOTINE DEPEN D; nicotine dependence , history of tobacco use. COMPARISON: None. This is a baseline study. TECHNIQUE: CT scan of the chest obtained without contrast from approximately the lung apices through the upper abdomen. Axial, coronal and sagittal reformatted images were obtained. Low dose technique w as utilized for nodule screening purposes. CT DLP: 90 mGycm, Automated exposure control for dose reduction was used. CT Contrast: IV contrast used: None. Oral contrast used: None. FINDINGS: Lack of intravenous contrast and low dose technique limits the evaluation of the vascular and soft ti ssue structures. LUNGS: No evidence of pulmonary fibrosis. No evidence of focal consolidation or infiltrate. Mild uppe r lobe predominant emphysematous changes. Mild biapical scarring. Mild bibasilar subsegmental atelect asis. Nodules: RUL: None RML: None RLL: None KAYLYNN: None LLL: None PLEURA: No sizeable pleural effusion or pneumothorax. AIRWAY: Central airways are patent. LOWER NECK: No significant findings. MEDIASTINUM: No evidence of enlarged nodes.. HEART: Normal heart size. Mild to moderate coronary artery calcification. No appreciable pericardial effusion. VASCULATURE: Mild atherosclerotic calcifications of the aorta and branches. Ascending aorta is 3.5 C M, descending is 2.6 CM. Aorta is considered normal in size. Pulmonary trunk measures 2.5 CM, normal in size. Vessels otherwise not further assessed without contrast. SOFT TISSUES/LYMPH NODES: Mild bilateral gynecomastia. No axillary adenopathy or chest wall mass. UPPER ABDOMEN: No significant findings. MUSCULOSKELETAL: Mild disc degeneration changes are present throughout the thoracolumbar spine. No a cute findings. IMPRESSION: 1. No clinically significant pulmonary nodules. 2. Mild emphysema. CT LUNG RAD AND CT CHEST RECOMMENDATION: Lung-Rad 1 Negative: Continue annual screening with LDCT in 12 months. C Modifier (Personal history of lung cancer?): No. S Modifier (Other clinically significant or potentially significant findings?): No. Other significant or potentially significant abnormalities: None. Recommend smoking cessation (if current smoker), or continuation of smoking cessation (if prior smoke r). Annual screening for lung cancer with low-dose computed tomography is recommended in adults ages 55 to 77 years who have a 30 pack-year smoking history and currently smoke or have quit within the pa st 15 years. Screening should be discontinued once a person has not smoked for 15 years or develops a health problem that substantially limits life expectancy or the ability or willingness to have curat flores lung surgery. Lung rads 2021 [email or web address]
== END | disposition home or self-care (01) ==
LOC: RADCTMAIN 08:44
PROVIDERS: ATTEND Family Medicine
DX: Z12.2 Encounter for screening for malignant neoplasm of respiratory organs (principal); J43.9 Emphysema, unspecified; F17.210 Nicotine dependence, cigarettes, uncomplicated
CPT/HCPCS: 71271

== ENCOUNTER 2023-03-19 23:35 | Emergency (ER) | payer MEDICARE ==
--- NOTE | 2023-03-20 03:44 | ED ---
Psych HPI - General Source: patient, police Mode of arrival: ambulatory <Dodie Melara - Last Filed: 03/20/23 03:43> - General Source: patient, police, RN notes reviewed Mode of arrival: ambulatory Limitations: no limitations <Austin Estrada - Last Filed: 03/20/23 12:51> - General Chief Complaint: Psychiatric Symptoms Stated Complaint: mental health Time Seen by Provider: 03/20/23 03:43 - History of Present Illness Initial Comments: 57-year-old male presenting with chief complaint of alcohol withdrawal. Patient normally drinks a pint of liquor per day along with "some beer". His last drink was 5 days ago. He states that he has had people coming in and out of his apartment, he calls the police however when they arrived the people are gone. He is asking to go "upstairs", to the psychiatric unit. (Dodie Melara) 57-year-old male presents emergency department with police for psychiatric evaluation. Patient contacted police because he believed people were coming in and out of his apartment. Upon police arrival this was found to be more of a hallucination. Patient does have underlying psychiatric issues. He also states that he stopped drinking 5 days ago. He states that his withdrawal symptoms have subsided which he states he had some tremoring. He denies any chest pain denies being suicidal homicidal. Patient states he is on BuSpar and Zoloft denies any illicit drug use (Austin Estrada) - Related Data Home Medications Medication Instructions Recorded Confirmed allopurinoL 100 mg PO DAILY 11/06/21 03/20/23 Rosuvastatin [Crestor] 10 mg PO HS 12/18/21 03/20/23 Gabapentin 600 mg PO TID 09/01/22 03/20/23 Albuterol Inhaler [Ventolin Hfa 2 puff INHALATION RT-QID PRN 01/11/23 03/20/23 Inhaler] Metoprolol Tartrate [Lopressor] 25 mg PO BID 01/11/23 03/20/23 oxyCODONE-APAP 7.5-325MG [Percocet 1 tab PO TID PRN 01/11/23 03/20/23 7.5-325 mg] Losartan Potassium [Cozaar] 100 mg PO DAILY 03/20/23 03/20/23 Sertraline [Zoloft] 150 mg PO DAILY 03/20/23 03/20/23 busPIRone HCL 15 mg PO BID 03/20/23 03/20/23 hydrOXYzine pamoate [Vistaril] 50 mg PO Q6H PRN 03/20/23 03/20/23 Previous Rx's Medication Instructions Recorded Cyclobenzaprine [Flexeril] 10 mg PO TID PRN #90 tab 10/29/22 Allergies Allergy/AdvReac Type Severity Reaction Status Date / Time clonidine [From Catapres] AdvReac Vomiting Verified 03/20/23 08:16 Review of Systems ROS Other: All systems not noted in ROS Statement are negative. <Dodie Melara - Last Filed: 03/20/23 03:43> ROS Other: All systems not noted in ROS Statement are negative. <Austin Estrada - Last Filed: 03/20/23 12:51> ROS Statement: Those systems with pertinent positive or pertinent negative responses have been documented in the HPI. Past Medical History Past Medical History: Hypertension Additional Past Medical History / Comment(s): Hx ETOH abuse, past withdrawal per pt with shaking/nausea and diarrhea, pancreatitis, diverticulitis, chronic cervical/back pain/DDD and cervical spondylosis, bronchitis. History of Any Multi-Drug Resistant Organisms: C-DIFF Date of last positivie culture/infection: 2005 MDRO Source:: stool Past Surgical History: Back Surgery, Bowel Resection Additional Past Surgical History / Comment(s): bilateral wrist/ elbow back Past Anesthesia/Blood Transfusion Reactions: No Reported Reaction Past Psychological History: Anxiety, Bipolar, Depression Smoking Status: Current every day smoker Past Alcohol Use History: Daily, Occasional Past Drug Use History: None Reported - Past Family History Father Family Medical History: Congestive Heart Failure (CHF) Additional Family Medical History / Comment(s): Father was healthy. Mother Family Medical History: Congestive Heart Failure (CHF) <Dodie Melara - Last Filed: 03/20/23 03:43> General Exam Limitations: no limitations <Dodie Melara - Last Filed: 03/20/23 03:43> General appearance: alert, in no apparent distress Head exam: Present: atraumatic, normocephalic, normal inspection Eye exam: Present: normal appearance, PERRL, EOMI. Absent: scleral icterus, conjunctival injection, periorbital swelling ENT exam: Present: normal exam, normal oropharynx, mucous membranes moist Neck exam: Present: normal inspection, full ROM. Absent: tenderness, meningismus, lymphadenopathy Respiratory exam: Present: normal lung sounds bilaterally. Absent: respiratory distress, wheezes, rales, rhonchi, stridor Cardiovascular Exam: Present: normal rhythm, tachycardia, normal heart sounds. Absent: systolic murmur, diastolic murmur, rubs, gallop, clicks GI/Abdominal exam: Present: soft, normal bowel sounds. Absent: distended, tenderness, guarding, rebound, rigid Neurological exam: Present: alert, oriented X3 Skin exam: Present: warm, dry, intact, normal color. Absent: rash <Austin Estrada - Last Filed: 03/20/23 12:51> - General Exam Comments Initial Comments: Visual Physical Exam Vital signs reviewed General: Well-appearing, nontoxic, no acute distress. Head: Normocephalic, atraumatic Eyes: PERRLA, EOMI ENT: Airway patent Chest: Nonlabored breathing Skin: No visual rash, normal skin tone Neuro: Alert and oriented 3 Musculoskeletal: No gross abnormalities (Dodie Melara) Course Vital Signs 03/20/23 03/20/23 03/20/23 00:06 08:46 12:11 Temperature 98.2 F Pulse Rate 121 H 68 80 Respiratory 16 18 18 Rate Blood Pressure 109/70 144/93 130/83 O2 Sat by Pulse 97 97 99 Oximetry Medical Decision Making <Dodie Melara - Last Filed: 03/20/23 03:43> - Lab Data Result diagrams: 03/20/23 06:48 03/20/23 06:46 <Austin Estrada - Last Filed: 03/20/23 12:51> - Medical Decision Making I performed the quick note portion of this visit electronically signed Dodie Melara PA-C (Dodie Melara) Was pt. sent in by a medical professional or institution (DAKOTA Samson, [employer]ICITING [employer]IGHT AGENT, urgent care, hospital, or assisted...) When possible be specific @ -No Did you speak to anyone other than the patient for history (EMS, parent, family, police, friend...)? What history was obtained from this source @ -No Did you review nursing and triage notes (agree or disagree)? Why? @ -I reviewed and agree with nursing and triage notes Were old charts reviewed (outside hosp., previous admission, EMS record, old EKG, old radiological studies, urgent care reports/EKG's, assisted records)? Report findings @ -No old charts were reviewed Differential Diagnosis (chest pain, altered mental status, abdominal pain women, abdominal pain men, vaginal bleeding, weakness, fever, dyspnea, syncope, headache, dizziness, GI bleed, back pain, seizure, CVA, palpatations, mental health, musculoskeletal)? @ -Differential Mental Health Depression, anxiety, bipolar, psychosis, schizophrenia, borderline personality, situational depression, adjustment disorder, behavioral disorder, brain tumor, malingering, substance abuse, encephalopathy, medication reaction, dementia, hypothyroidism, degenerative neurologic disorder, lupus.... This is not meant to be all-inclusive list EKG interpreted by me (3pts min.). @ -None X-rays interpreted by me (1pt min.). @ -None done CT interpreted by me (1pt min.). @ -None done U/S interpreted by me (1pt. min.). @ -None done What testing was considered but not performed or refused? (CT, X-rays, U/S, labs)? Why? @ -None What meds were considered but not given or refused? Why? @ -None Did you discuss the management of the patient with other professionals (professionals i.e. , PA, SOLICITING FREIGHT AGENT, lab, RT, psych nurse, medical social worker, client services administrator, teacher, fourth officer, family caseworker)? Give summary @ -[EPS to evaluate the patient states there is no admission criteria for psychiatric treatment Was smoking cessation discussed for >3mins.? @ -No Was critical care preformed (if so, how long)? @ -No Were there social determinants of health that impacted care today? How? (Homelessness, low income, unemployed, alcoholism, drug addiction, transportation, low edu. Level, literacy, decrease access to med. care, [facility], rehab)? @ -No Was there de-escalation of care discussed even if they declined (Discuss DNR or withdrawal of care, Hospice)? DNR status @ -No What co-morbidities impacted this encounter? (DM, HTN, Smoking, COPD, CAD, Cancer, CVA, ARF, Chemo, Hep., AIDS, mental health diagnosis, sleep apnea, morbid obesity)? @ -[Alcohol use Was patient admitted / discharged? Hospital course, mention meds given and route, prescriptions, significant lab abnormalities, going to OR and other pertinent info. @ -Discharge patient presented department with police for psychiatric evaluation. Patient is here. Labs are to be acutely dehydrated, patient was given fluid bolus, maintenance fluids. Patient has been Emergency Department for 13 hours. Patient was eval by EPS and does not meet inpatient criteria he denies being suicidal homicidal. He did have mild hypomagnesemia, hypokalemia which was replaced. Patient states he has no current symptoms he had no signs of alcohol withdrawal. Patient will be discharged stable condition return were discussed. Undiagnosed new problem with uncertain prognosis? @ -[No Drug Therapy requiring intensive monitoring for toxicity (Heparin, Nitro, Insulin, Cardizem)? @ -No Were any procedures done? @ -No Diagnosis/symptom? @ -[Hypomagnesemia, hypokalemia, alcohol abuse, depression, dehydration Acute, or Chronic, or Acute on Chronic? @ -Acute Uncomplicated (without systemic symptoms) or Complicated (systemic symptoms)? @ -Uncomplicated Side effects of treatment? @ -[No Exacerbation, Progression, or Severe Exacerbation? @ -No Poses a threat to life or bodily function? How? (Chest pain, [place], [place], pneumonia, PE, COPD, DKA, ARF, appy, cholecystitis, CVA, Diverticulitis, Homicidal, Suicidal, threat to staff... and all critical care pts) @ -No (Austin Estrada) - Lab Data Lab Results 03/20/23 03/20/23 03/20/23 Range/Units 06:46 06:48 06:48 WBC 5.0 (3.8-10.6) k/uL RBC 4.36 (4.30-5.90) m/uL Hgb 14.2 (13.0-17.5) gm/dL Hct 41.1 (39.0-53.0) % MCV 94.3 (80.0-100.0) fL MCH 32.6 (25.0-35.0) pg MCHC 34.5 (31.0-37.0) g/dL RDW 12.6 (11.5-15.5) % Plt Count 73 L (150-450) k/uL MPV 9.8 Neutrophils % 56 % Lymphocytes % 30 % Monocytes % 8 % Eosinophils % 3 % Basophils % 1 % Neutrophils # 2.8 (1.3-7.7) k/uL Lymphocytes # 1.5 (1.0-4.8) k/uL Monocytes # 0.4 (0-1.0) k/uL Eosinophils # 0.2 (0-0.7) k/uL Basophils # 0.0 (0-0.2) k/uL Sodium 134 L (137-145) mmol/L Potassium 3.1 L (3.5-5.1) mmol/L Chloride 99 (98-107) mmol/L Carbon Dioxide 24 (22-30) mmol/L Anion Gap 11 mmol/L BUN 32 H (9-20) mg/dL Creatinine 1.93 H (0.66-1.25) mg/dL Est GFR (CKD-EPI)AfAm 44 (>60 ml/min/1.73 sqM) Est GFR (CKD-EPI)NonAf 38 (>60 ml/min/1.73 sqM) Glucose 139 H (74-99) mg/dL Calcium 10.2 (8.4-10.2) mg/dL Magnesium 1.5 L (1.6-2.3) mg/dL Total Bilirubin 1.1 (0.2-1.3) mg/dL AST 94 H (17-59) U/L ALT 88 H (4-49) U/L Alkaline Phosphatase 72 (38-126) U/L Total Protein 7.3 (6.3-8.2) g/dL Albumin 4.4 (3.5-5.0) g/dL SARS-CoV-2 (PCR) Not Detected (Not Detectd) Disposition <Dodie Melara - Last Filed: 03/20/23 03:43> Is patient prescribed a controlled substance at d/c from ED?: No Time of Disposition: 12:49 <Austin Estrada - Last Filed: 03/20/23 12:51> Clinical Impression: Dehydration, Alcohol abuse, Depression Disposition: HOME SELF-CARE Condition: Stable Instructions (If sedation given, give patient instructions): Depression (ED) Additional Instructions: Please return to the Emergency Department if symptoms worsen or any other concerns. Referrals: Louis Boyer MD [Primary Care Provider] - 1-2 days
[2023-03-20] MEDS: SODIUM CHLORIDE 0.9% 500 ML 500 ML IV ONE ×2 (06:43→12:07)
[2023-03-20] MEDS: SODIUM CHLORIDE 0.9% 1,000 ML IV ONE (06:43)
[2023-03-20 07:05] LABS: ALT 88 U/L (4-49); AST 94 U/L (17-59); African American GFR (CKD) 44 (>60 ml/min/1.73 sqM); Albumin 4.4 g/dL (3.5-5.0); Alkaline Phosphatase 72 U/L (38-126); Anion Gap 11 mmol/L; Blood Urea Nitrogen 32 mg/dL (9-20); Calcium 10.2 mg/dL (8.4-10.2); Carbon Dioxide 24 mmol/L (22-30); Chloride 99 mmol/L (98-107); Glucose 139 mg/dL (74-99); Magnesium 1.5 mg/dL (1.6-2.3); Non-African American GFR(CKD) 38 (>60 ml/min/1.73 sqM); Potassium 3.1 mmol/L (3.5-5.1); Sodium 134 mmol/L (137-145); Total Bilirubin 1.1 mg/dL (0.2-1.3); Total Protein 7.3 g/dL (6.3-8.2)
[2023-03-20 07:32] LABS: Basophils % (A) 1 %; Eosinophils # (A) 0.2 k/uL (0-0.7); Eosinophils % (A) 3 %; HCT 41.1 % (39.0-53.0); HGB 14.2 gm/dL (13.0-17.5); Lymphocytes # (A) 1.5 k/uL (1.0-4.8); Lymphocytes % (A) 30 %; MCH 32.6 pg (25.0-35.0); MCHC 34.5 g/dL (31.0-37.0); MCV 94.3 fL (80.0-100.0); Mean Platelet Volume 9.8; Monocytes # (A) 0.4 k/uL (0-1.0); Monocytes % (A) 8 %; Neutrophils # (A) 2.8 k/uL (1.3-7.7); Neutrophils % (A) 56 %; RBC 4.36 m/uL (4.30-5.90); RDW 12.6 % (11.5-15.5)
[2023-03-20 08:23] LABS: Platelet Count 73 k/uL (150-450)
[2023-03-20] MEDS: MAGNESIUM OXIDE 400 MG TAB PO STA (08:40)
[2023-03-20] MEDS: POTASSIUM CHLORIDE ER 20 MEQ TAB.ER PO STA (08:41)
[2023-03-20 09:03] VITALS: RESP 18
[2023-03-20] MEDS: SODIUM CHLORIDE 0.9% 1,000 ML IV SCH (12:07)
[2023-03-20 12:24] VITALS: BP 130/83
[2023-03-20 13:51] VITALS: PULSE 78; TEMP 98.1
== END 2023-03-20 13:54 | disposition home or self-care (01) ==
LOC: EC 23:35
DX: F32.A Depression, unspecified (principal); F10.10 Alcohol abuse, uncomplicated; E86.0 Dehydration; E87.6 Hypokalemia; E83.42 Hypomagnesemia; R00.0 Tachycardia, unspecified; I10 Essential (primary) hypertension; F41.9 Anxiety disorder, unspecified; F17.200 Nicotine dependence, unspecified, uncomplicated; Z20.822 Contact with and (suspected) exposure to COVID-19; Z79.899 Other long term (current) drug therapy; Z88.8 Allergy status to other drugs, medicaments and biological substances
CPT/HCPCS: 36415; 80053; 82075; 83735; 85025; 87635; 93005; 96360; 96361; 99285

== ENCOUNTER 2023-04-04 07:52 | Day surgery (SDC) | payer MEDICARE ==
[2023-04-02 13:04] VITALS: BMI 30.7
[~2023-04-04 07:52] MED LIST changes: -ACETAMINOPHEN TAB 500 MG TAB PO PRN; -DEXAMETHASONE SOD PHOSPHATE 4 MG/ML 1 ML VIAL IV ONE; -GABAPENTIN 300 MG CAP PO PRN; -HYDROmorphone 0.5 MG/0.5 ML SYRINGE IVP PRN; -ONDANSETRON 4 MG/2 ML VIAL IVP ONE; -ONDANSETRON 4 MG/2 ML VIAL IVP PRN; -TRANEXAMIC 1,000 MG/100ML-NACL 1,000 MG in SALINE 1 100ML.BAG IVPB PRN; -fentaNYL (PF) 50 MCG/ML 2 ML AMP IV PRN
[2023-04-04] MEDS: LACTATED RINGERS 1,000 ML IV SCH (08:08)
[2023-04-04 08:20] VITALS: TEMP 98
[2023-04-04] MEDS ORDERED: PROPOFOL 10 MG/ML 20 ML VIAL IV ONE (08:28)
[2023-04-04] MEDS: MIDAZOLAM 2 MG/2 ML VIAL IVP ONE (08:28)
--- NOTE | 2023-04-04 08:38 | P.GSHP ---
History of Present Illness H&P Date: 04/04/23 Chief Complaint: Screening colonoscopy, history of diverticulitis This is a 57-year-old male presents today for screening colonoscopy. Patient's previous history of diverticulitis. Past Medical History Past Medical History: Hypertension Additional Past Medical History / Comment(s): Hx ETOH abuse, past withdrawal per pt with shaking/nausea and diarrhea, pancreatitis, diverticulitis, chronic cervical/back pain/DDD and cervical spondylosis, bronchitis. History of Any Multi-Drug Resistant Organisms: C-DIFF Date of last positivie culture/infection: 2005 MDRO Source:: stool Past Surgical History: Bowel Resection, Orthopedic Surgery Additional Past Surgical History / Comment(s): Bowel resection with 10 inches removed d/t diverticulitis, colonoscopy, hx c-diff 2005, benign lump removed from scrotum, left rotator cuff repair, right rotator cuff repair X2, pain clinic procedures, carpal tunnel on bilateral wrists and elbows, cervical fusion Nov 2021, lumbar fusion 10/25/22. Past Anesthesia/Blood Transfusion Reactions: No Reported Reaction Past Psychological History: Anxiety, Bipolar, Depression Smoking Status: Current every day smoker Past Alcohol Use History: Abuse, Daily, Heavy Additional Past Alcohol Use History / Comment(s): Started smoking in 1979 and is a 1 ppd smoker. Hx alcohol abuse - approximately 1/5 of liquor and a six-pack of beers per day, last used 08/30/22. Past Drug Use History: Marijuana Additional Drug Use History / Comment(s): Aware no Marijuana use 24 hrs prior to procedure. - Past Family History Father Family Medical History: Congestive Heart Failure (CHF) Additional Family Medical History / Comment(s): Father was healthy. Mother Family Medical History: Congestive Heart Failure (CHF) Medications and Allergies Home Medications Medication Instructions Recorded Confirmed Type allopurinoL 100 mg PO DAILY 11/06/21 04/04/23 History Rosuvastatin [Crestor] 10 mg PO HS 12/18/21 04/04/23 History Gabapentin 600 mg PO TID 09/01/22 04/04/23 History Cyclobenzaprine [Flexeril] 10 mg PO TID PRN #90 tab 10/29/22 04/04/23 Rx Albuterol Inhaler [Ventolin Hfa 2 puff INHALATION QID 01/11/23 04/04/23 History Inhaler] Metoprolol Tartrate [Lopressor] 25 mg PO BID 01/11/23 04/04/23 History oxyCODONE-APAP 7.5-325MG [Percocet 1 tab PO TID PRN 01/11/23 04/04/23 History 7.5-325 mg] Losartan Potassium [Cozaar] 100 mg PO QAM 03/20/23 04/04/23 History Sertraline [Zoloft] 150 mg PO QAM 03/20/23 04/04/23 History busPIRone HCL 15 mg PO BID 03/20/23 04/04/23 History Allergies Allergy/AdvReac Type Severity Reaction Status Date / Time clonidine [From Catapres] AdvReac Vomiting Verified 04/02/23 12:32 Surgical - Exam Vital Signs Temp Pulse Resp BP Pulse Ox 98 F 73 18 137/86 98 04/04/23 08:15 04/04/23 08:15 04/04/23 08:15 04/04/23 08:15 04/04/23 08:15 - General well developed, well nourished, no distress - Eyes PERRL - ENT normal pinna - Neck no masses - Respiratory normal expansion - Cardiovascular Rhythm: regular - Abdomen Abdomen: soft, non tender Assessment and Plan Assessment: History of diverticulitis. Will perform screening colonoscopy.
--- NOTE | 2023-04-04 08:50 | P.OP ---
Date of Procedure: 04/04/23 Preoperative Diagnosis: Screening colonoscopy History of diverticulitis Postoperative Diagnosis: Transverse colon polyp Diverticulosis Procedure(s) Performed: Colonoscopy Anesthesia: MAC Surgeon: Maximus Amezcua Pathology: other (Transverse colon polyp) Condition: stable Disposition: PACU Description of Procedure: Patient was placed on the endoscopy table in the lateral position. He received IV sedation. Digital rectal exam was performed. This revealed no abnormalities. The prostate was symmetrical without nodules. The flexible colonoscope was then placed patient anus and passed throughout the entire colon. The ileocecal valve was visualized. The cecum, ascending colon appeared normal. In the proximal transverse colon a small sessile polyp. Removed with a cold forcep. There manage transverse colon appeared normal. The descending and sigmoid colon had mild diverticular changes. The scope was then brought back to the rectum this appeared normal. Scope withdrawn the patient.
[2023-04-04 09:21] VITALS: BP 141/95; PULSE 70
[2023-04-04 09:22] VITALS: RESP 16
== END 2023-04-04 09:27 | disposition home or self-care (01) ==
LOC: ORWHC2ENDO 07:52
PROVIDERS: ATTEND Surgery
DX: Z12.11 Encounter for screening for malignant neoplasm of colon (principal); D12.3 Benign neoplasm of transverse colon; K57.30 Diverticulosis of large intestine without perforation or abscess without bleeding; I10 Essential (primary) hypertension; J44.9 Chronic obstructive pulmonary disease, unspecified; F41.9 Anxiety disorder, unspecified; F31.9 Bipolar disorder, unspecified; F12.90 Cannabis use, unspecified, uncomplicated; F10.90 Alcohol use, unspecified, uncomplicated; F17.210 Nicotine dependence, cigarettes, uncomplicated; Z79.51 Long term (current) use of inhaled steroids; Z79.899 Other long term (current) drug therapy; Z88.8 Allergy status to other drugs, medicaments and biological substances
CPT/HCPCS: 88305; 45380; J2250; J2704

== ENCOUNTER → 2023-04-23 | Outpatient (CLI) | payer MEDICARE ==
--- NOTE | 2023-04-24 10:52 | MR ---
EXAMINATION TYPE: MR cervical spine wo/w con DATE OF EXAM: 04/23/2023 5:07 PM CLINICAL INDICATION:Male, 57 years old with history of M50.20 CERVICAL DDD M47.812 SPONDYLOSIS; PHH, Neck pain for 2 months that radiates down left arm COMPARISON: 10/20/2020. TECHNIQUE: Multi planar, multi sequence imaging was performed utilizing: T1-weighted, T2-weighted, an d turbo inversion recovery imaging of the cervical spine. IV Contrast: 9 cc Gadavist (none if empty) FINDINGS: Alignment: The cervical vertebral bodies have preserved heights. Alignment is within normal limits gi cristóbal patient positioning. Bones: Postsurgical changes C4-C7. There is mild multifocal degeneration changes throughout the spine with osteophyte formation, disc space narrowing and facet joint arthropathy. Cord: The spinal cord is unremarkable with regards to their signal intensity and morphology. No abnor mal postcontrast enhancement. Discs: Intervertebral disc signal is maintained. C2-C3: No significant disc pathology. The spinal canal is patent. No neural foraminal stenosis. C3-C4: A disc osteophyte complex is present which minimally narrows the ventral subarachnoid space. Bilateral facet and uncovertebral joint arthropathy are present with mild bilateral neural foraminal stenosis. C4-C5: Narrowed caliber of the thecal sac with moderate spinal canal stenosis. Bilateral facet and un covertebral joint arthropathy are present with moderate bilateral neural foraminal stenosis. C5-C6: Narrowed caliber of the thecal sac with moderate spinal canal stenosis. Bilateral facet and un covertebral joint arthropathy are present with moderate to severe bilateral neural foraminal stenosis . C6-C7: No significant disc pathology. The spinal canal is patent. Bilateral facet and uncovertebral joint arthropathy are present with moderate to severe bilateral neural foraminal stenosis. C7-T1: No significant disc pathology. The spinal canal is patent. No neural foraminal stenosis. Other: None. IMPRESSION: 1. No evidence for disc herniation or significant spinal canal stenosis. No abnormal postcontrast enh ancement. 2. Postsurgical changes with thecal sac extending from C4 to C6 with moderate spinal canal stenosis. 3. Disc degeneration changes with neural foraminal stenosis worse at C5-C6 and C6-C7 with moderate to severe bilateral neural foraminal stenosis.
== END | disposition home or self-care (01) ==
LOC: RADMRIMAIN 16:17
PROVIDERS: ATTEND Psychiatry & Neurology Neurology
DX: M48.02 Spinal stenosis, cervical region (principal); M99.71 Connective tissue and disc stenosis of intervertebral foramina of cervical region; M50.322 Other cervical disc degeneration at C5-C6 level; M50.20 Other cervical disc displacement, unspecified cervical region; M47.812 Spondylosis without myelopathy or radiculopathy, cervical region; M96.1 Postlaminectomy syndrome, not elsewhere classified; Z98.890 Other specified postprocedural states
CPT/HCPCS: 72156; A9585

== ENCOUNTER → 2023-04-30 | Outpatient (CLI) | payer MEDICARE ==
--- NOTE | 2023-05-03 12:56 | CT ---
EXAMINATION TYPE: CT lumbar spine wo con CT DLP: 1161.20 mGycm, Automated exposure control for dose reduction was used. DATE OF EXAM: 04/30/2023 8:23 AM COMPARISON: 10/26/2022. CLINICAL INDICATION:Male, 57 years old with history of M54.50 LOW BACK PAIN; PHH, Low back pain, left leg numbness TECHNIQUE: Multiple axial images were obtained from the midportion of T11 through the sacroiliac archie nts. Soft tissue and bone windows in coronal and sagittal planes were obtained and reviewed. Contrast used: mL of , (None, if empty). Oral contrast used: (None, if empty). FINDINGS: There are 5 lumbar type vertebral bodies within normal alignment. Postsurgical changes with fixation hardware at L4-L5 and S1. Discectomy at L4-L5 and L5-S1. Hardware appears intact. Streak artifact limits evaluation at these levels. The neural foramen at these levels appear patent. The spinal canal within the limitations exam appears patent. There is laminectomy canelo nges at L4 and L5. Surgical bed fluid is thought to be present. No evidence of fracture is identified . Multilevel degeneration changes with osteophyte formation, disc space narrowing, facet joint arthro [place]. L2-L3 in L3-L4 disc bulge with mild spinal canal stenosis. L3-L4 facet joint arthropathy with neural foraminal stenosis bilaterally. IMPRESSION: Post surgical changes with hardware intact and appropriate position. Degeneration with disc bulging with mild spinal canal stenosis at L2-L3 and L3-L4. Degeneration with moderate bilateral neural foraminal stenosis at L3-L4.
== END | disposition home or self-care (01) ==
LOC: RADCTMAIN 08:02
PROVIDERS: ATTEND Orthopaedic Surgery
DX: M51.36 Other intervertebral disc degeneration, lumbar region (principal); M48.061 Spinal stenosis, lumbar region without neurogenic claudication; M99.73 Connective tissue and disc stenosis of intervertebral foramina of lumbar region
CPT/HCPCS: 72131

== ENCOUNTER → 2023-05-21 | Outpatient (CLI) | payer MEDICARE, OTHER ==
--- NOTE | 2023-05-25 11:26 | MR ---
EXAMINATION TYPE: MR lumbar spine wo/w con DATE OF EXAM: 05/21/2023 9:51 AM CLINICAL INDICATION:Male, 57 years old with history of M54.5 lumbar pain; PHH, Low back pain into rt leg, hx surgery. COMPARISON: CT 04/30/2023, radiograph 05/06/2023. TECHNIQUE: Multi planar, multi sequence imaging was performed utilizing: T1-weighted, T2-weighted, a nd turbo inversion recovery imaging of the lumbar spine. IV Contrast: 9 cc Gadavist. (None if empty) FINDINGS: Alignment: The lumbar vertebral bodies have preserved heights and alignment. Cord: The conus medullaris and the distal spinal cord appear unremarkable with regards to their signa l intensity and morphology. Bones/Discs: Post surgical changes to L4-L5 and S1 with susceptibility artifact. Multilevel degenerat ion changes throughout the spine with osteophyte formation disc space narrowing and facet joint arthr opathy. Increased inversion recovery signal at the inferior endplate of L3 likely on a degenerative b asis. Enhancement of the epidural space but to be present on series 901 image 18 at the level of L3. T12-L1: No evidence of significant spinal canal stenosis or neural foraminal stenosis. L1-L2: Disc bulge and facet joint arthropathy result in mild spinal canal and moderate right and mild -to-moderate left neural foraminal stenosis. L2-L3: Disc bulge and facet joint arthropathy result in moderate to severe spinal canal and moderate bilateral neural foraminal stenosis. L3-L4: Disc bulge and facet joint arthropathy result in mild to moderate spinal canal and moderate bi lateral neural foraminal stenosis. L4-L5: Susceptibility artifact limits evaluation at this level.. The spinal canal and neural foramen appear patent. L5-S1: Susceptibility artifact limits evaluation at this level the spinal canal and neural foramen ap pear patent. No significant spinal canal or neural foraminal stenosis in the remainder of the visualized levels. Other findings: None. IMPRESSION: 1. Mild enhancement of the posterior dura posteriorly at the level of L4 possibly relating to epidur al fibrosis. Short-term follow-up recommended. 2. Postsurgical changes at L4-L5 and S1. There is moderate bilateral neural foraminal stenosis at L4 -L5, L3-L4 and L2-L3. 3. Moderate to severe L2-L3 spinal canal stenosis secondary disc bulge and facet joint arthropathy.
== END | disposition home or self-care (01) ==
LOC: RADMRIMAIN 08:48
PROVIDERS: ATTEND Orthopaedic Surgery
DX: M51.36 Other intervertebral disc degeneration, lumbar region (principal); M47.816 Spondylosis without myelopathy or radiculopathy, lumbar region; M48.061 Spinal stenosis, lumbar region without neurogenic claudication; M99.73 Connective tissue and disc stenosis of intervertebral foramina of lumbar region; Z98.890 Other specified postprocedural states
CPT/HCPCS: 72158; A9585

== ENCOUNTER → 2023-07-18 | Outpatient (CLI) | payer MEDICARE, OTHER | END | disposition home or self-care (01) | LOC: LABPAT 09:55 | PROVIDERS: ATTEND Orthopaedic Surgery | DX: Z01.812 Encounter for preprocedural laboratory examination (principal) | CPT/HCPCS: 36415; 86850; 86900; 86901; 87070 ==

== ENCOUNTER 2023-07-25 05:43 | Inpatient (IN) | payer MEDICARE, OTHER ==
[2023-07-23 08:47] VITALS: BMI 31.4
--- NOTE | 2023-07-24 17:45 | P.HPOR ---
History of Present Illness H&P Date: 07/18/23 Chief Complaint: UE RADICULOPTHY and WEAKNESS .D:Date: 07/18/23 : 09:30am .T:Title: TAQUERIA MORAES [facility] HISTORY AND PHYSICAL Age: 57 year Height: 5'6" Weight: 195 lbs BP:121/74 BMI: 31.47 kg/m2 VAS: 6 Occupation: Retired IMPRESSION: 1. C2-T1 stenosis 2. Bilateral upper extremity paresthesias 3. Cervical foraminal stenosis Spine Surgery Risk Review Mr. Galan is presenting for evaluation of neck and bilateral upper extremity pain, bilateral upper extremity numbness and tingling. It was my pleasure to have seen and examined Mr. Galan. In our visit today we have had a chance to go over subjective complaints, physical examination findings and treatments including the natural course history without intervention and various interventional options. The patients imaging demonstrates: XRAY - Re-reviewed with the patient today. Date: 04/24/2023 Location: [facility] Region: Cervical Views: AP & Lateral Hardware in good position. No evidence of fracture or failure. Some subsidence noted of the C4-5 level. There is increased kyphosis at the C4-5 level due to this finding as well which placed the patient in a more forward Sag+ orientation. Good bone foramation noted around the area. No other lesions fractures or instability noted. MRI - Re-reviewed with the patient today. Date: 04/23/2023 Location: [facility] Region:Cervical Contrast:N C3-4 shows a new HNP with central and foraminal stenosis that is moderate. There is overall continued central stenosis that is moderate due to overall canal diameter, posterior based ligamental stenosis and facet arthropathy. There is continued begining myelomalacial changes at C6-7 due to these findings as well. Implants in position and there is good decompression of the anterior cord, however posterior cord and overall diameter needs to be addressed as it is causing compressive features still. On physical exam, Mr. Galan demonstrates: A continued stabbing, sharp pain throughout the neck that has been ongoing and worsening over the last 2 months. He states his pain radiates down from the neck into the bilateral upper extremities, worse on the left compared to the right. He notes his upper extremity pain is associated with numbness and tingling bilaterally. He notes worsening left upper extremity weakness. The patient states that any bending motion causes worsening symptomology. e also notes that prolonged activity causes worsening neck pain. I have explained to the patient that as their condition progresses it will cause further neurological deficits and eventual paralysis. Based on the patients imaging, physical exam, and the rapid progression and disabling nature of their symptoms, at this time I recommend surgery in the form of a: C2-T2 Open PCDF. I discussed the risk and benefits of this procedure at length with Mr. Galan. The patient agreed to considered pursuing the procedure abovementioned. Prior to surgery, she should follow up with her PCP (Cardio, ID, IM etc) for clearance. Questions were invited and answered, and the patient wishes to proceed as outlined below. Currently, I am recommendin.C2-T2 OPEN POSTERIOR CERVICAL DISCECTOMY AND FUSION 2.Review of surgical risks and benefits as well as an educational packet on the proposed surgical procedure. Risks: All surgical procedures come with inherent risks, including those related to positioning, anesthesia, intraoperative findings, and postoperative complications. It is important to understand that surgery does not come with any guarantee of a successful outcome as complications and adverse events are always possible. The patient was given a handout in office today discussing the surgical procedure and risks associated with the intervention, both of which were discussed with the patient. These risks include but are not limited to the following: * Experiencing same, different or even worse symptoms in back, neck, arms, or legs compared to before surgery. Requiring further surgery or other forms of treatment presently or at some time in the future at same or other levels of the intended spine surgery. On an extreme but fortunately relatively rare basis severe complication such as blindness, stroke, heart attack, temporary and/or permanent nerve injury, paralysis, coma, or may occur, sometimes without known explanation. Surgical complications may include but are not limited to risk of infection, fluid accumulation in the surgical dissection site, including a seroma or hematoma, that requires additional surgery, wound drainage, bleeding, new numbness or weakness, vision changes/loss, spinal fluid leakage, non-healing and/or infected incision, headaches, difficulty or inability to swallow, hoarseness, hemopneumothorax, pneumothorax, impotence, retrograde ejaculation, vaginal dryness; injury to nerves, spinal cord, blood vessels, lymphatics or other vital organs (i.e., bowel injury, injury to the great vessels); heterotopic bone formation; complications related to the hardware such as screws, rods, cages including misplaced hardware, device failure, instrumentation at the wrong spine level, hardware fracture/breakage, or hardware loosening; vertebral failure of the spinal column above or below the newly placed hardware; retained surgical instrumentations or devices and the need for further surgery. * Medical risks of the planned spine surgery include but are not limited to generalized Infections to the whole body or local areas outside of the surgical site (sepsis), heart attack, bleeding, anaphylaxis, meningitis, seizure, epilepsy, hearing loss, burn bassett, laceration of the head or other areas of the body, bruising, hypersensitivity of the skin, bladder over distension; allergic reaction; shoulder injury related to positioning; fat, blood and air clots to other areas of the body like heart, lungs, brain; failure of internal organs such as lungs, kidneys, liver and excessive bleeding. If blood transfusions are necessary, note that transfusions may cau se intolerance reactions such as anaphylaxis or other complex reactions. Despite best efforts, the results of spine surgery might not heal in terms of bone, soft tissues such as skin, fascia, ligaments, and joints. Additionally, in order to achieve best possible results, spine surgery may be carried out beyond the initially planned levels and involve decompression, fusion including insertion of hardware at levels other than the original intended area of surgical interest change some portions of the procedure in order to ensure the best possible outcomes. With spine surgery and spinal fusion, there are different off label uses of instrumentation (devices, implants and hardware) as well as biological substances (bone morphogenic proteins, demineralized bone matrix) as well as using extra bone from allograft sources (i.e. cadaver bone) or autograft (iliac crest bone, ribs, or the spine itself). The patient has been given information about these practices and their inherent risks and benefits. [facility] is an educational center that serves as a training facility for neurosurgical and orthopedic [employer] and Nursing students. Physician assistants are medically trained surgical providers who function in the outpatient, inpatient, and operating room setting under the direct supervision of the attending surgeon. [facility] has multiple operating rooms with single and overlapping rooms running daily. They currently function under the required guidelines as produced by the [facility] Finance Committee with regards to the overlapping rooms and will continue to comply with changes to this policy as they occur. The requirements include and are complied with as follows: (1) the critical portions of the overlapping rooms will not occur at the same time, (2) the attending physician will be physically present during the critical portions of the procedure and immediately available during the entire case, and (3) a back-up attending is designated should the primary attending not be immediately available. The patient has had a chance to review all the listed information, has been given print outs detailing this information, and has had all his/her questions answered to their satisfaction. It was my pleasure to have seen and examined Mr. Galan. In our visit today we have had a chance to go over my understanding of our patient's current condition, the natural course history without intervention and various interventional options. Questions were invited and answered, and the patient wishes to proceed as outlined above. I have seen and examined the patient for 25 minutes and we have spent more than 50% of the time in repeat and detailed counseling about the patient's condition, its natural course history with out and as much as can be predicted with surgery and re-review of various surgical treatment options. In conclusion, Mr. Galan requested we proceed with the above suggested surgery and are willing to accept risks and limitations of the suggested surgery as nature of the disease process and our best attempts at treatment for the condition. Thank you again for allowing us to be part of your patient's care. Please don't hesitate to contact me if you have any further questions. Signed and authenticated by: [employer] P:\\\\ppart\\\\Files\\\\[id number]\\\\[id number]\\\\[id number]\\\\[id number]\\\\[id number] 01\\\\[id number]\\\\[id number]\\\\[id number]\\\\[id number]\\\\[id number]\\\\[id number]\\\\[id number] NG \\d Dallin Leung [facility] [address] [place], [address] [address] FOLLOW UP: Post Procedure PATIENT EDUCATION: Medications Reviewed: YES In our visit today Mr. Galan and I have had a chance to go over my understanding of the patient's current condition, the natural course history without intervention and various interventional options. Questions were invited and answered, and the patient wishes to proceed as outlined above. I will be sure to keep you updated after Mr. Galan returns here for further follow-up. Thank you again for your referral. Please do not hesitate to contact me if you have any further questions. Signed and authenticated by: Dallin Tran [facility] [address] [id number] This message is confidential, intended only for the named recipient(s) and may contain information that is privileged or exempt from disclosure under applicable law. If you are not the intended recipient(s), you are notified that the dissemination, distribution or copying of this information is strictly prohibited. If you received this message in error, please notify the sender then delete this message. # SIGNED BY Dallin Sparks (GOO)07/24/2023 04:21PM Past Medical History Past Medical History: COPD, Hyperlipidemia, Hypertension Additional Past Medical History / Comment(s): ETOH abuse-past withdrawal per pt with shaking/nausea and diarrhea, pancreatitis, diverticulitis, chronic cervical/back pain/DDD and cervical spondylosis History of Any Multi-Drug Resistant Organisms: C-DIFF Date of last positivie culture/infection: 2005 MDRO Source:: stool Past Surgical History: Back Surgery, Bowel Resection, Orthopedic Surgery Additional Past Surgical History / Comment(s): bilateral wrist/elbow, bilateral rotator cuff (right x2, left x1) Past Anesthesia/Blood Transfusion Reactions: No Reported Reaction Past Psychological History: Anxiety, Bipolar, Depression Additional Psychological History / Comment(s): . Smoking Status: Current every day smoker Past Alcohol Use History: Daily Additional Past Alcohol Use History / Comment(s): Started smoking in 1979 and is a 1 ppd smoker. Drinks appox 1/5 of whiskey daily. Past Drug Use History: Marijuana Additional Drug Use History / Comment(s): . - Past Family History Father Family Medical History: Congestive Heart Failure (CHF) Additional Family Medical History / Comment(s): "heart problems" Mother Family Medical History: Congestive Heart Failure (CHF) Additional Family Medical History / Comment(s): "heart problems" Brother(s) Additional Family Medical History / Comment(s): "heart problems" Medications and Allergies Home Medications Medication Instructions Recorded Confirmed Type allopurinoL 100 mg PO DAILY 11/06/21 07/23/23 History Rosuvastatin [Crestor] 10 mg PO HS 12/18/21 07/23/23 History Gabapentin 600 mg PO TID 09/01/22 07/23/23 History Cyclobenzaprine [Flexeril] 10 mg PO TID PRN #90 tab 10/29/22 07/23/23 Rx Albuterol Inhaler [Ventolin Hfa 2 puff INHALATION QID PRN 01/11/23 07/23/23 History Inhaler] Metoprolol Tartrate [Lopressor] 25 mg PO BID 01/11/23 07/23/23 History oxyCODONE-APAP 7.5-325MG [Percocet 1 tab PO TID PRN 01/11/23 07/23/23 History 7.5-325 mg] Losartan Potassium [Cozaar] 100 mg PO QAM 03/20/23 07/23/23 History Sertraline [Zoloft] 150 mg PO QAM 03/20/23 07/23/23 History busPIRone HCL 15 mg PO BID 03/20/23 07/23/23 History Allergies Allergy/AdvReac Type Severity Reaction Status Date / Time clonidine [From Catapres] AdvReac Vomiting Verified 07/23/23 08:31 Physical Examination Osteopathic Statement: *. No significant issues noted on an osteopathic structural exam other than those noted in the History and Physical/Consult.
[~2023-07-25 05:43] MED LIST changes: -LIDOCAINE 1% (10MG/ML) FOR IV START INTRADERMA PRN; +TRANEXAMIC 1,000 MG/100ML-NACL 1,000 MG in SALINE 1 100ML.BAG IVPB PRN
[2023-07-25] MEDS ORDERED: LIDOCAINE 1% (10MG/ML) FOR IV START INTRADERMA PRN (06:14)
[2023-07-25] MEDS: GABAPENTIN 300 MG CAP PO PRN (06:54)
[2023-07-25] MEDS: LACTATED RINGERS 1,000 ML IV SCH (06:55)
[2023-07-25] MEDS: ACETAMINOPHEN TAB 500 MG TAB PO PRN (06:55)
[2023-07-25] MEDS: ONDANSETRON 4 MG/2 ML VIAL IVP PRN (06:56)
[2023-07-25] MEDS: DEXAMETHASONE SOD PHOSPHATE 4 MG/ML 1 ML VIAL IV ONE (06:56)
[2023-07-25] MEDS: MIDAZOLAM 2 MG/2 ML VIAL IV ONE (06:57)
[2023-07-25] MEDS ORDERED: METOCLOPRAMIDE 5 MG/ML 2 ML VIAL IVP PRN (07:00)
[2023-07-25] MEDS ORDERED: fentaNYL (PF) 50 MCG/ML 2 ML AMP IV PRN (07:00)
[2023-07-25] MEDS: IV FLUID CONTINUATION 1,000 ML IV ONE ×2 (07:06→07:07)
--- NOTE | 2023-07-25 07:12 | P.ANPRN ---
Procedure Note - Anesthesia - Invasive Line Right Arterial Line Time Out Performed: Yes Date of Procedure: 07/25/23 Time of Procedure: 06:55 Location of Patient: PreOp Preparation: Sterile Prep, Sterile Dressing Arterial Line Location: Radial Ultrasound Used: No Purpose - Visualization and Identification of Vasculature: No Image Stored and Saved: No Narrative: Invasive line placement per sterile protocol utilized.
[2023-07-25] MEDS ORDERED: PHENYLEPHRINE 10 MG/ML VIAL ONE (07:27)
[2023-07-25] MEDS ORDERED: NEOSTIGMINE 1 MG/ML 10 ML VIAL ONE (07:27)
[2023-07-25] MEDS ORDERED: TRANEXAMIC 1,000 MG/100ML-NACL PREMIX BAG ONE (07:27)
[2023-07-25] MEDS ORDERED: ROCURONIUM 10 MG/ML (5 ML VIAL) IV ONE (07:27)
[2023-07-25] MEDS ORDERED: KETAMINE HCL IN 0.9 % NACL 50 MG/5 ML SYRINGE ONE (07:27)
[2023-07-25] MEDS ORDERED: MIDAZOLAM 2 MG/2 ML VIAL ONE (07:27)
[2023-07-25] MEDS ORDERED: LIDOCAINE 1% INJ 10MG/ML (20 ML MDV) ONE (07:27)
[2023-07-25] MEDS ORDERED: fentaNYL (PF) 50 MCG/ML 2 ML AMP ONE (07:27)
[2023-07-25] MEDS ORDERED: PROPOFOL 10 MG/ML 20 ML VIAL IV ONE (07:27)
[2023-07-25] MEDS ORDERED: SUCCINYLCHOLINE CHLORIDE 200 MG/10 ML VIAL IV ONE (07:27)
[2023-07-25] MEDS ORDERED: GLYCOPYRROLATE 0.2 MG/ML 2 ML VIAL ONE (07:27)
[2023-07-25] MEDS ORDERED: HYDROmorphone (PF) 1 MG/ML ONE (07:27)
[2023-07-25] MEDS: ceFAZolin 3,000 MG in SODIUM CHLORIDE 0.9% IRRIGATIO 3,000 ML IRRIGATION ONE (08:15)
[2023-07-25] MEDS: THROMBIN (BOVINE) 5,000 UNIT VIAL TOPICAL ONE (08:15)
[2023-07-25] MEDS: GENTAMICIN 80 MG in SODIUM CHLORIDE 0.9% IRRIGATIO 3,000 ML IRRIGATION ONE (08:15)
[2023-07-25] MEDS: VANCOMYCIN 1,000 MG VIAL MISCELLANE ONE (09:52)
--- NOTE | 2023-07-25 10:40 | P.OP ---
Date of Procedure: 07/25/23 Preoperative Diagnosis: 1. C3-7 CERVICAL STENOSIS, SEVERE 2. STATUS POST ANTERIOR CERVICAL DISCECTOMY AND FUSION 3. uPPER EXTREMITY RADICULOPATHY BILATERAL 4. UE WEAKNESS 5. NECK PAIN Postoperative Diagnosis: 1. C3-7 CERVICAL STENOSIS, SEVERE 2. STATUS POST ANTERIOR CERVICAL DISCECTOMY AND FUSION 3. uPPER EXTREMITY RADICULOPATHY BILATERAL 4. UE WEAKNESS 5. NECK PAIN Procedure(s) Performed: C2-T2 posterolateral instrumented fusion (52903, [id number]) C2-T2 instrumentation (35685) C2-T1 decompressive laminectomy, partial medial facetectomy and foraminotomy (58666, [id number]) USE OF IONM Implants: -ZULEMA POSTERIOR CERVICAL RODS AND SCREW SYSTEM -MAGNATOS, AUTOGRAFT Anesthesia: GETA Surgeon: Dallin Sparks Home Performance Laborer #1: Sharon Valladares (WAS PRESENT AND ASSISTED WITH ALL ASPECTS OF THE CASE FROM POSITION TO DRESSING PLAEMENT) Estimated Blood Loss (ml): 150 IV fluids (ml): 1,500 Urine output (ml): 0 Pathology: none sent Condition: stable Disposition: PACU Indications for Procedure: Mr. Galan is presenting for evaluation of neck and bilateral upper extremity pain, bilateral upper extremity numbness and tingling. It was my pleasure to have seen and examined Mr. Galan. In our visit today we have had a chance to go over subjective complaints, physical examination findings and treatments including the natural course history without intervention and various interventional options. The patients imaging demonstrates: XRAY - Re-reviewed with the patient today. Date: 04/24/2023 Location: [facility] Region: Cervical Views: AP & Lateral Hardware in good position. No evidence of fracture or failure. Some subsidence noted of the C4-5 level. There is increased kyphosis at the C4-5 level due to this finding as well which placed the patient in a more forward Sag+ orientation. Good bone foramation noted around the area. No other lesions fractures or instability noted. MRI - Re-reviewed with the patient today. Date: 04/23/2023 Location: [facility] Region:Cervical Contrast:N C3-4 shows a new HNP with central and foraminal stenosis that is moderate. There is overall continued central stenosis that is moderate due to overall canal diameter, posterior based ligamental stenosis and facet arthropathy. There is continued begining myelomalacial changes at C6-7 due to these findings as well. Implants in position and there is good decompression of the anterior cord, however posterior cord and overall diameter needs to be addressed as it is causing compressive features still. On physical exam, Mr. Galan demonstrates: A continued stabbing, sharp pain throughout the neck that has been ongoing and worsening over the last 2 months. He states his pain radiates down from the neck into the bilateral upper extremit ies, worse on the left compared to the right. He notes his upper extremity pain is associated with numbness and tingling bilaterally. He notes worsening left upper extremity weakness. The patient states that any bending motion causes worsening symptomology. e also notes that prolonged activity causes worsening neck pain. I have explained to the patient that as their condition progresses it will cause further neurological deficits and eventual paralysis. Based on the patients imaging, physical exam, and the rapid progression and disabling nature of their symptoms, at this time I recommend surgery in the form of a: C2-T2 Open PCDF. I discussed the risk and benefits of this procedure at length with Mr. Galan. The patient agreed to considered pursuing the procedure abovementioned. Prior to surgery, she should follow up with her PCP (Cardio, ID, IM etc) for clearance. Questions were invited and answered, and the patient wishes to proceed as outlined below. Currently, I am recommendin.C2-T2 OPEN POSTERIOR CERVICAL DISCECTOMY AND FUSION Description of Procedure: C2-T2 decompression and fusion The patient was seen and examined in the preoperative area. All preoperative protocols were followed. Informed consent was obtained, risks and benefits of the procedure were discussed at length. Risks including bleeding infection damage to the surrounding tissue and risk of reoperation were discussed with the patient. Risk of anesthesia up to and including was discussed with the patient. These are outlined in the risk review. They were willing to accept these risks and all of the risks of surgery. The patient was given a weight- based dose of antibiotics in the form of 2 g Ancef. The patient was seen and evaluated by the anesthesia team who deemed them fit for surgery. The site was marked, the patient was willing to proceed with the procedure. The patient was transferred to the operative suite by the Department of anesthesia. They were then drifted off to sleep by the department anesthesia and GETA was performed. The patient tolerated this well. pre-positioning motors were obtained.Miranda in place from the floor. Once confirmation of lines and ventilation De Dios head clamp was placed on the patient and secured and the patient was transferred to a [prone Gaaml table very carefully] with the Calvin cylinder head assembler the head was secured and placed into an optimal position x- ray confirmed this position. Post-positioning motors remained stable. All bony prominences including wrists, elbows, axilla, chest, hips, and thighs, and feet were padded very well. Special attention was paid to the genitalia and these were padded accordingly. SCDs were placed on bilateral lower extremities and were connected. Arms were well padded and placed tucked at his side thumbs down. Shoulders were gently taped down to the table.. Once in position, again we confirmed good ventilation capabilities and that lines were running appropriately. The patient's posterior cervical spine was then exposed. 1010s were placed outlining the incision site. Standard alcohol was used to clean the incision site and allowed to dry. C-arm was used to biomark the patient and conf irm level for incision which was marked with a skin marker. Operative briefing was performed with all teams and everyone in agreement to proceed. The patient was then prepped and draped in a normal sterile fashion. Timeout was then performed and all parties were in agreement with the procedure to be performed. Midline skin incision made over the previously bio-marked area and dissection taken down midline to the SP of C2-T2. Subperiosteal dissection taken out over the lamina and lateral masses of C2-C7 and TVP of T1 and T2. Once exposure complete, the wound was irrigated and the C-arm brought in for imaging. A penfield 4 was used to bluntly dissect the medial border of C2 pedicle and placed for guidance. C arm used and a radames hole made for the starting point. The C2 pedicle was then drilled in 2 mm increments to 16 mm using a ball tip feeler in between each drill session to make sure within the 4 ernst with a good bottom. Once this was accomplished a screw was selected and placed under lateral fluoroscopic guidance. Screw had a good purchase. This was then repeated on the contralateral side. AP confirmed good placement of both screws. We then proceeded to the T1 and T2 screws bilaterally. A high speed radames was used to remove the facet joint of C7 and to create a starting point for T1 and similarly, T1 facet for T2. Pedicle finder was then passed into T1 and T2 and imaging taken to confirm placement this was then removed and a tap placed ball-tipped probe was then placed and 4 ernst of pedicle fell with good bottom. Screw was then measured and placed intoT1 and T2. This is repeated on the contralateral side. Imaging confirmed good placement of all 4 thoracic screws. The wound was then irrigated. Lateral mass screws were then drilled to 12 mm and placed at each level from C3-6. Each had a good bite. Rods were then sized and selected and cut to length. They were bent accordingly and lordosis and to fit the occiput plate. These were then secured into C2 bilaterally and then sequentially reduced into lateral mass screws and T1 and T2 screws without issues. All set screws were placed and were then final tightened and the position. Bila teral laminectomy, facetectomy and foraminotomies were then done from C2-T1 using high speed radames, kerrison rongeur and upbiting curette. Bilateral laminotomy troughs were made with radames followed by curette to release ligamentum. Rongure was then used to gently remove the lamina and facets posteriorly without issues. Meticulous hemostasis was performed after.. Motors were run before and after decompression and they remain stable. Good pulsations of the cord were noted after decompression. Foraminotomies then performed with kerrison rongeur and clean up of the laminectomy site. The wound was then copiously irrigated with 3 L of 1L BETADINE, Ancef irrigation followed by 3 L of gentamicin irrigation followed by 3 L of normal sterile saline. Facet joints were drilled at each level to allow for fusion Surgicel was placed over the dura. MagnetOs were placed in the posterior lateral gutters along with autograft.. This was impacted into position for fusion. 2 g of powdered vancomycin was then placed deep within the wound and a deep drain was placed. We then proceeded with layered closure first in the deep fascia with #1 PDS then in the deep fascia followed by a running #1 stratafix. 0 Vicryl was used in the deep subq fascia and an 0 PDS stratafix used in the subdermal layer. Skin then approximated with 2-0 nylon in running fashion. skin edges approximated well. The wound edges approximated very well. The wound was then cleaned and dressed sterilely with an operative foam dressing 4 x 4 and Tegaderm. The drain had good suction. The patient was placed in a hard cervical collar. The patient was transferred back to their hospital bed atraumatically. De Dios head clamp was removed and pin sites were clear. Drain continued to hold suction. Patient was placed in a hard collar Patient was then awakened and extubated by the department of anesthesia having tolerated the procedure very well with no complications. They were transferred to the postoperative care unit in stable condition.
[2023-07-25] MEDS ORDERED: oxyCODONE-APAP 7.5-325MG 1 EACH TAB PO PRN (10:50)
[2023-07-25] MEDS ORDERED: bisacodyL 10 MG SUPP RECTAL PRN (10:51)
[2023-07-25] MEDS ORDERED: MAGNESIUM HYDROXIDE 2,400 MG/30 ML CUP PO PRN (10:51)
--- NOTE | 2023-07-25 11:06 | FL ---
EXAMINATION TYPE: FL guidance operating room, XR cervical spine limited Intraoperative/procedural flu oroscopic services were provided. Total fluoroscopy time is 55.3 seconds with a total of 8 submitted images to PACS. Please see the operative/procedural note for further details. DAP: 1.8679 Gycm2
[2023-07-25] MEDS ORDERED: LORazepam 2 MG/ML INJ IV PRN (11:13)
[2023-07-25] MEDS ORDERED: LORazepam 1 MG TAB PO PRN ×3 (11:13)
[2023-07-25] MEDS: HYDROmorphone 0.5 MG/0.5 ML SYRINGE IVP PRN ×2 (11:29→13:05)
[2023-07-25] MEDS: KETOROLAC 15 MG/ML 1 ML VIAL IVP SCH (13:04)
[2023-07-25] MEDS: SODIUM CHLORIDE 0.9% 1,000 ML IV SCH (13:05)
[2023-07-25] MEDS ORDERED: LORazepam 1 MG/0.5 ML VIAL IV PRN (14:03)
--- NOTE | 2023-07-25 16:47 | CT ---
EXAMINATION TYPE: CT cervical spine wo con DATE OF EXAM: 07/25/2023 COMPARISON: 12/12/2021 HISTORY: post op CT DLP: 548.2 mGycm Automated exposure control for dose reduction was used. TECHNIQUE: CT scan of the cervical spine is obtained without contrast, axial images are obtained, sa gittal and coronal reformatted images are also reviewed. FINDINGS: There are extensive postsurgical changes of laminectomy from C3 to through C7. There is posterior me tallic fusion from C2 through T2. There is interdisc fusion at the C4-5, C5-6 and C6-7 levels. The craniovertebral junction relation to prevertebral soft tissues are within normal limits post surg yemi. The C2-3 and C3-4 discs are well-preserved. There is mild spondylosis at the C3-4 level indicating mi nimal degenerative disc disease. There is a surgical drain in the posterior epidural space. There are no postoperative seromas or abno rmal posterior fluid collections. There are a few air bubbles in the subcutaneous soft tissues in the posterior neck soft tissues. IMPRESSION: Extensive postsurgical changes of laminectomy and fusion as described above.
[2023-07-25] MEDS: GABAPENTIN 300 MG CAP PO SCH (17:25)
[2023-07-25] MEDS: CYCLOBENZAPRINE 10 MG TAB PO PRN (20:05)
[2023-07-25] MEDS: busPIRone HCl 5 MG TAB PO SCH (20:38)
[2023-07-25] MEDS: polyethylene glycoL 3350 17 GM POWD.PACK PO SCH (20:38)
[2023-07-25] MEDS: METOPROLOL TARTRATE 25 MG TAB PO SCH (20:38)
[2023-07-25] MEDS: LORazepam 0.5 MG TAB PO PRN (22:14)
[2023-07-25] MEDS: hydrALAZINE HCL 20 MG/ML 1 ML VIAL IVP PRN (22:51)
[2023-07-26] MEDS: LORazepam 1 MG TAB PO PRN (06:02)
[2023-07-26 07:37] LABS: Basophils % (A) 0 %; Eosinophils % (A) 0 %; HCT 40.8 % (39.0-53.0); HGB 13.3 gm/dL (13.0-17.5); Lymphocytes # (A) 1.6 k/uL (1.0-4.8); Lymphocytes % (A) 15 %; MCH 31.4 pg (25.0-35.0); MCHC 32.5 g/dL (31.0-37.0); MCV 96.7 fL (80.0-100.0); Mean Platelet Volume 7.8; Monocytes # (A) 0.4 k/uL (0-1.0); Monocytes % (A) 4 %; Neutrophils # (A) 8.3 k/uL (1.3-7.7); Neutrophils % (A) 79 %; Platelet Count 200 k/uL (150-450); RBC 4.22 m/uL (4.30-5.90); RDW 12.6 % (11.5-15.5); WBC 10.5 k/uL (3.8-10.6)
[2023-07-26] MEDS: MULTIVITAMINS, THERA 1 EACH TAB PO SCH (08:26)
[2023-07-26] MEDS: LOSARTAN 50 MG TAB PO SCH (08:26)
[2023-07-26] MEDS: allopurinoL 100 MG TAB PO SCH (08:26)
[2023-07-26] MEDS: SERTRALINE 50 MG TAB PO SCH (08:26)
[2023-07-26] MEDS: FOLIC ACID 1 MG TAB PO SCH (08:26)
[2023-07-26] MEDS: oxyCODONE-APAP 7.5-325MG 1 EACH TAB PO SCH (08:27)
[2023-07-26] MEDS: SENNOSIDES-DOCUSATE SODIUM 1 EACH TAB PO SCH (08:27)
[2023-07-26] MEDS: DEXAMETHASONE SOD PHOSPHATE 10 MG/ML 1 ML VIAL IV STA (08:27)
[2023-07-26] MEDS: HYDROmorphone 1 MG/ML 1 ML SYRINGE IVP PRN (09:56)
[2023-07-26] MEDS: amLODIPine 5 MG TAB PO STA (09:56)
--- NOTE | 2023-07-26 09:57 | P.PN ---
Subjective Progress Note Date: 07/26/23 Principal diagnosis: 1. C2-T1 stenosis 2. Bilateral upper extremity paresthesias 3. Cervical foraminal stenosis Patient seen and examined this morning. Patient has been assisted to chair at bedside. Patient states he has tolerated activity well. He does report some difficulty with pain management, informed patient that medications have been adjusted this morning. Patient does inform that the night shift manager RN stated that IV Dilaudid had been discontinued and was only provided oral medication. Discussed with patient that IV Dilaudid had been ordered since his procedure and was available. Surgical Corsetier discussed with leonila RN regarding pain management, she states that her and the patient have discussed a plan for better management. Patient does state that he had some difficulty with voiding after surgery and was straight cathed. Patient has since been urinating without any difficulty. Surgical incision to the posterior cervical spine, dressing is intact with Hemovac present with 220 mL output documented overnight. Patient does report resolution of bilateral upper extremity numbness and tingling and radiculopathy. He states he is very happy with the outcome of his surgery. Continue to enco urage patient to be up in chair for all meals and use of incentive spirometer 10 times per hour while awake. No acute concerns at this time. Objective - Vital Signs Vital signs: Vital Signs Temp 99.2 F 07/26/23 02:00 Pulse 74 07/26/23 02:00 Resp 16 07/26/23 02:00 BP 160/90 07/26/23 06:22 Pulse Ox 98 07/26/23 02:00 FiO2 Intake & Output 07/25/23 07/26/23 07/26/23 18:59 06:59 18:59 Intake Total 1951 300 Output Total 1350 1170 Balance 602 -870 Weight 88 kg Intake: IV 1951 Oral 300 Output: Drainage 320 Right Back 320 Urine 600 850 Straight 600 Post Void Residual 600 Estimated Blood Loss 150 - Exam Physical Examination General: The patient is awake and alert, in no acute distress Skin: Skin is warm and dry with no obvious rashes or lesions. Surgical incision to the posterior cervical spine, dressing is intact with Hemovac present with 220 mL output documented overnight. Eye: Pupils are equal, round and reactive to light, extra-ocular movements are intact; there is normal conjunctiva bilaterally. Neck: The neck is supple, there is mild tenderness due to surgical incision and limited range of motion due to pain and stiffness from surgical procedure. Amite hard collar is intact. Cardiovascular: There is a regular rate and rhythm. No murmur, rub or gallop is appreciated. Respiratory: Lungs are clear to auscultation, respirations are non-labored, breath sounds are equal. Gastrointestinal: Soft, non-distended, non-tender abdomen. Back: There is no tenderness to palpation in the midline, paralumbar, parathoracic or buttocks region. There is no obvious deformity . Musculoskeletal: Muscle strength in all major muscle groups of bilateral upper extremities 4/5, bilateral lower extremities 5/5. Neurological: CN 2-12 intact. There are no obvious motor or sensory deficits. Movement and coordination equal and intact. Sensory exam to light touch intact C5-T1 and intact from L2-S1. Reflexes 2/4 in bilateral upper and lower extremities. Negative Hoffmans, babinski, and clonus signs. Psychiatric: Cooperative, appropriate mood & affect, normal judgment. - Labs CBC & Chem 7: 07/26/23 06:34 Labs: Abnormal Lab Results - Last 24 Hours (Table) 07/26/23 Range/Units 06:34 RBC 4.22 L (4.30-5.90) m/uL Neutrophils # 8.3 H (1.3-7.7) k/uL Assessment and Plan Assessment: Postop day 1: C2-T2 decompression and fusion 1. C2-T1 stenosis 2. Bilateral upper extremity paresthesias 3. Cervical foraminal stenosis Plan: -Appreciate telecommunications consultant and team management. -Activity: Ambulate QID, OOB all meals, up and about, limit lifting bending twisting to less than 5 lbs. Use walker or cane if needed for stability. -Daily PT/OT, increase ambulation strength and balance. -Hard cervical collar on at all times, may remove for showers. -Pain control: Adequate at this time -Meds: reviewed -GI ppx: senna, Miralax -DVT PPX: OK to restart Heparin tonight -Hygiene: Shower today. Maintain dressing clean and dry. -Drains: Maintain for now. Continue to monitor and record output q shift. -Encourage IS 10x/hr -Dispo: Anticipate discharge home with homecare in the next 48 hours. *I reviewed and discussed this case with my attending Dr. Sparks, whom has reviewed this chart and films and is in agreement with assessment and plan of care as outlined above. I have personally seen and examined the patient, performed the documentation and the assessment and plan as written. Number of minutes spent on the visit: 20m.
[2023-07-26] MEDS: CAFFEINE-SODIUM BENZOATE 500 MG in SODIUM CHLORIDE 0.9% 100 ML IVPB ONE (10:59)
[2023-07-26] MEDS ORDERED: IPRATROPIUM-ALBUTEROL 3 ML NEB INHALATION PRN (11:14)
[2023-07-26] MEDS ORDERED: METOPROLOL TARTRATE 25 MG TAB PO SCH (11:30)
--- NOTE | 2023-07-26 11:35 | P.CONS ---
History of Present Illness - Reason for Consult Consult date: 07/26/23 Medical management Requesting physician: Dallin Sparks - Chief Complaint Cervical stenosis - History of Present Illness This 57-year-old gentleman with past medical history significant for cervical stenosis, hypertension, degenerative disc disease, alcohol abuse-drinks 1/5 of whiskey a daily, marijuana use, ongoing nicotine dependence, COPD, bipolar, anxiety, depression and multiple other medical issues, status post C2-T2 decompression and fusion. Tolerated procedure well. Passing flatus, spontaneously voiding. Ambulating to and from bathroom, tolerated exertion well. Denies lightheadedness dizziness or focal deficits. Denies chest pain, palpitations or shortness of breath. Reports a rough night, due to his pain management, which orthopedic spine addressed with staff. Denies numbness or tingling. Hypertensive, antihypertensives further adjusted with the addition of hydralazine. Continues on CIWA protocol, current CIWA score 4. Review of Systems ROS Statement: Those systems with pertinent positive or pertinent negative responses have been documented in the HPI. ROS Other: All systems not noted in ROS Statement are negative. Past Medical History Past Medical History: COPD, Hyperlipidemia, Hypertension Additional Past Medical History / Comment(s): ETOH abuse-past withdrawal per pt with shaking/nausea and diarrhea, pancreatitis, diverticulitis, chronic cervical/back pain/DDD and cervical spondylosis History of Any Multi-Drug Resistant Organisms: C-DIFF Year Discovered:: 2005 MDRO Source:: stool Past Surgical History: Back Surgery, Bowel Resection, Orthopedic Surgery Additional Past Surgical History / Comment(s): bilateral wrist/elbow, bilateral rotator cuff (right x2, left x1) Past Anesthesia/Blood Transfusion Reactions: No Reported Reaction Past Psychological History: Anxiety, Bipolar, Depression Additional Psychological History / Comment(s): . Smoking Status: Current every day smoker Past Alcohol Use History: Daily Additional Past Alcohol Use History / Comment(s): Started smoking in 1979 and is a 1 ppd smoker. Drinks appox 1/5 of whiskey daily. Past Drug Use History: Marijuana Additional Drug Use History / Comment(s): . - Past Family History Father Family Medical History: Congestive Heart Failure (CHF) Additional Family Medical History / Comment(s): "heart problems" Mother Family Medical History: Congestive Heart Failure (CHF) Additional Family Medical History / Comment(s): "heart problems" Brother(s) Additional Family Medical History / Comment(s): "heart problems" Medications and Allergies Home Medications Medication Instructions Recorded Confirmed Type allopurinoL 100 mg PO DAILY 11/06/21 07/25/23 History Rosuvastatin [Crestor] 10 mg PO HS 12/18/21 07/25/23 History Gabapentin 600 mg PO TID 09/01/22 07/25/23 History Cyclobenzaprine [Flexeril] 10 mg PO TID PRN #90 tab 10/29/22 07/25/23 Rx Albuterol Inhaler [Ventolin Hfa 2 puff INHALATION QID PRN 01/11/23 07/25/23 History Inhaler] Metoprolol Tartrate [Lopressor] 25 mg PO BID 01/11/23 07/25/23 History oxyCODONE-APAP 7.5-325MG [Percocet 1 tab PO TID PRN 01/11/23 07/25/23 History 7.5-325 mg] Losartan Potassium [Cozaar] 100 mg PO QAM 03/20/23 07/25/23 History Sertraline [Zoloft] 150 mg PO QAM 03/20/23 07/25/23 History busPIRone HCL 15 mg PO BID 03/20/23 07/25/23 History Allergies Allergy/AdvReac Type Severity Reaction Status Date / Time clonidine [From Catapres] AdvReac Vomiting Verified 07/25/23 06:21 Physical Exam Vitals: Vital Signs Temp Pulse Pulse Resp BP Pulse Ox 07/26/23 07:03 98.4 F 82 18 173/82 94 L 07/26/23 06:22 160/90 07/26/23 02:00 99.2 F 74 16 171/98 98 07/25/23 20:00 98.0 F 72 16 186/108 96 07/25/23 16:56 94 L 07/25/23 14:51 176/104 07/25/23 14:36 63 167/99 88 L 07/25/23 14:22 64 178/89 86 L 07/25/23 14:06 66 165/98 93 L 07/25/23 13:51 64 160/95 94 L 07/25/23 13:36 69 172/102 93 L 07/25/23 13:28 97.6 F 67 17 154/90 95 07/25/23 13:21 68 154/90 93 L 07/25/23 13:06 67 168/98 96 07/25/23 12:53 76 18 174/95 99 07/25/23 12:38 76 16 160/61 94 L 07/25/23 11:54 80 16 156/86 94 L 07/25/23 11:38 76 16 178/85 98 07/25/23 11:23 84 16 181/86 99 07/25/23 11:08 71 18 176/96 100 07/25/23 10:53 97 F L 77 16 142/92 100 Intake and Output 07/25/23 07/26/23 07/26/23 22:59 06:59 14:59 Intake Total 300 Output Total 810 360 Balance -510 -360 Intake: Oral 300 Output: Drainage 210 110 Right Back 210 110 Urine 600 250 Gen: Pleasant 57-year-old male, alert and oriented 3, sitting up in chair, well-developed, well-nourished. HEENT: Head is atraumatic, normocephalic. Pupils equal, round. Sclerae is anicteric. NECK: Wearing c-collar LUNGS: Unlabored, equal air entry, clear to auscultation. No wheezes or rhonchi. No intercostal retractions. HEART: Regular rate and rhythm. No murmur. ABDOMEN: Soft. Obese. Bowel sounds are present. No masses. No tenderness. EXTREMITIES: No pedal edema. No calf tenderness. NEUROLOGICAL: Cranial nerves 2 through 12 are grossly intact. Results CBC & Chem 7: 07/26/23 06:34 Labs: Abnormal Lab Results - Last 24 Hours (Table) 07/26/23 Range/Units 06:34 RBC 4.22 L (4.30-5.90) m/uL Neutrophils # 8.3 H (1.3-7.7) k/uL Assessment and Plan Assessment: Cervical stenosis, status post C2-T2 decompression and fusion Hypertension Hyperlipidemia COPD Degenerative disc disease Alcohol use, drinks 1/5 of whiskey daily Ongoing nicotine dependence Marijuana use Morbid obesity, BMI 31 Plan: Continue on current medication resume ,monitoring and symptomatic treatment. Maintain CIWA protocol. Antihypertensives ordered. Pain management, DVT prophylaxis as per orthopedic spine. Aggressive pulmonary toileting with incentive spirometer reinforced. Alcohol abstinence, smoking cessation reinforced. The impression and plan of care has been dictated as directed. : I performed a history and examination of this patient, discussed the same with the dictator. I agree with the dictator's note ,documented as a scribe. Any additional findings or plans will be noted.
[2023-07-26] MEDS: IPRATROPIUM-ALBUTEROL 3 ML NEB INHALATION SCH (12:03)
[2023-07-26] MEDS: HEPARIN SODIUM,PORCINE 5,000 UNIT/ML 1 ML VIAL SQ SCH (21:51)
[2023-07-26] MEDS: ATORVASTATIN 10 MG TAB PO SCH (21:52)
[2023-07-27 07:37] LABS: HCT 40.4 % (39.0-53.0); HGB 12.9 gm/dL (13.0-17.5); MCH 31.3 pg (25.0-35.0); Mean Platelet Volume 8.1; Platelet Count 191 k/uL (150-450); RBC 4.13 m/uL (4.30-5.90); RDW 12.5 % (11.5-15.5); WBC 14.1 k/uL (3.8-10.6)
[2023-07-27 07:50] LABS: ALT 24 U/L (4-49); AST 41 U/L (17-59); African American GFR (CKD) >90 (>60 ml/min/1.73 sqM); Albumin 3.8 g/dL (3.5-5.0); Albumin/Globulin Ratio 1.5; Alkaline Phosphatase 65 U/L (38-126); Anion Gap 5 mmol/L; Blood Urea Nitrogen 22 mg/dL (9-20); Carbon Dioxide 26 mmol/L (22-30); Chloride 107 mmol/L (98-107); Globulin 2.5 g/dL; Glucose 123 mg/dL (74-99); Non-African American GFR(CKD) >90 (>60 ml/min/1.73 sqM); Potassium 3.7 mmol/L (3.5-5.1); Sodium 138 mmol/L (137-145); Total Bilirubin 0.8 mg/dL (0.2-1.3); Total Protein 6.3 g/dL (6.3-8.2)
[2023-07-27] MEDS ORDERED: SERTRALINE 100 MG TAB PO SCH (09:00)
--- NOTE | 2023-07-27 10:19 | P.PN ---
Subjective Progress Note Date: 07/27/23 Principal diagnosis: 1. C2-T1 stenosis 2. Bilateral upper extremity paresthesias 3. Cervical foraminal stenosis Patient seen and examined this morning. Patient resting comfortably in bed. Patient states he worked with PT yesterday and was ambulatory down the hallway. He states he tolerated activity well. He does report better management of his pain. Surgical incision to the posterior cervical spine, dressing is intact with Hemovac present with 90mL output documented overnight. Patient does report reso lution of bilateral upper extremity numbness and tingling and radiculopathy. Continue to encourage patient to be up in chair for all meals and use of incentive spirometer 10 times per hour while awake. No acute concerns at this time. Objective - Vital Signs Vital signs: Vital Signs Temp 98.6 F 07/27/23 06:48 Pulse 76 07/27/23 09:15 Resp 17 07/27/23 06:48 BP 145/90 07/27/23 06:48 Pulse Ox 96 07/27/23 06:48 FiO2 Intake & Output 07/26/23 07/27/23 07/27/23 18:59 06:59 18:59 Output Total 185 1090 Balance -185 -1090 Output: Drainage 185 90 Right Back 185 90 Urine 1000 Other: Voiding Method Toilet - Exam Physical Examination General: The patient is awake and alert, in no acute distress Skin: Skin is warm and dry with no obvious rashes or lesions. Surgical i ncision to the posterior cervical spine, dressing is intact with Hemovac present with 90 mL output documented overnight. Eye: Pupils are equal, round and reactive to light, extra-ocular movements are intact; there is normal conjunctiva bilaterally. Neck: The neck is supple, there is mild tenderness due to surgical incision and limited range of motion due to pain and stiffness from surgical procedure. [place] hard collar is intact. Cardiovascular: There is a regular rate and rhythm. No murmur, rub or gallop is appreciated. Respiratory: Lungs are clear to auscultation, respirations are non-labored, breath sounds are equal. Gastrointestinal: Soft, non-distended, non-tender abdomen. Back: There is no tenderness to palpation in the midline, paralumbar, parathoracic or buttocks region. There is no obvious deformity . Musculoskeletal: Muscle strength in all major muscle groups of bilateral upper extremities 4/5, bilateral lower extremities 5/5. Neurological: CN 2-12 intact. There are no obvious motor or sensory deficits. Movement and coordination equal and intact. Sensory exam to light touch intact C5-T1 and intact from L2-S1. Reflexes 2/4 in bilateral upper and lower extr emities. Negative Hoffmans, babinski, and clonus signs. Psychiatric: Cooperative, appropriate mood & affect, normal judgment. - Labs CBC & Chem 7: 07/27/23 07:03 07/27/23 07:03 Labs: Abnormal Lab Results - Last 24 Hours (Table) 07/27/23 07/27/23 Range/Units 07:03 07:03 WBC 14.1 H (3.8-10.6) k/uL RBC 4.13 L (4.30-5.90) m/uL Hgb 12.9 L (13.0-17.5) gm/dL BUN 22 H (9-20) mg/dL Glucose 123 H (74-99) mg/dL Assessment and Plan Assessment: Postop day 2: C2-T2 decompression and fusion 1. C2-T1 stenosis 2. Bilateral upper extremity paresthesias 3. Cervical foraminal stenosis Plan: -Appreciate public relations consultant and team management. -Activity: Ambulate QID, OOB all meals, up and about, limit lifting bending twisting to less than 5 lbs. Use walker or cane if needed for stability. -Daily PT/OT, increase ambulation strength and balance. -Hard cervical collar on at all times, may remove for showers. -Pain control: Adequate at this time -Meds: reviewed -GI ppx: senna, Miralax -DVT PPX: Heparin -Hygiene: Shower today. Maintain dressing clean and dry. -Drains: Maintain for now. Continue to monitor and record output q shift. -Encourage IS 10x/hr -Dispo: Anticipate discharge home with homecare in the next 24-48 hours. *I reviewed and discussed this case with my attending Dr. Sparks, whom has reviewed this chart and films and is in agreement with assessment and plan of care as outlined above. I have personally seen and examined the patient, performed the documentation and the assessment and plan as written. Number of minutes spent on the visit: 20m.
[2023-07-27] MEDS: NICOTINE 14MG/24HR PATCH TRANSDERM SCH (17:20)
--- NOTE | 2023-07-27 18:16 | P.PN ---
Subjective Progress Note Date: 07/27/23 This 57-year-old gentleman with past medical history significant for cervical stenosis, hypertension, degenerative disc disease, alcohol abuse-drinks 1/5 of whiskey a daily, marijuana use, ongoing nicotine dependence, COPD, bipolar, anxiety, depression and multiple other medical issues, status post C2-T2 decompression and fusion. Tolerated procedure well. Passing flatus, spontaneously voiding. Ambulating to and from bathroom, tolerated exertion well. Denies lightheadedness dizziness or focal deficits. Denies chest pain, palpitations or shortness of breath. Reports a rough night, due to his pain management, which orthopedic spine addressed with staff. Denies numbness or tingling. Hypertensive, antihypertensives further adjusted with the addition of hydralazine. Continues on CIWA protocol, current CIWA score 4. 07/27/2023 Patient is evaluated in follow up. Assumed care of the patient today from primary doctor. Patient is postoperative day #2 C2-T1 decompression and fusion. He is in a hard cervical collar. Symptoms of cervical radiculopathy have improved per patient no longer having reports of numbness and tingling down the right arm. He is having continued pain 08/27 and states the only thing that helps is the IV dilaudid which wears off quickly. States the oxycodone is no longer working for his chronic pain. Patient has no acute complaints. He is continued on ativan CIWA protocol does not appear to be actively withdrawing at this time. Labs today reveal white blood cell count 14.1, BUN 22, creatinine 0.83. Hemodynamically he is stable. Review of Systems Constitutional: Denied any fatigue denied any fever. Cardio vascular: denied any chest pain, palpitations Gastrointestinal: denied any nausea, vomiting, diarrhea Pulmonary: Denied any shortness of breath cough Neurologic denied any new focal deficits All inpatient medications were reviewed and appropriate changes in these medications as dictated in the interval history and assessment and plan. PHYSICAL EXAMINATION: GENERAL: The patient is alert and oriented x3, not in any acute distress. Well developed, well nourished. HEENT: Pupils are round and equally reacting to light. EOMI. No scleral icterus. No conjunctival pallor. Normocephalic, atraumatic. No pharyngeal erythema. No thyromegaly. CARDIOVASCULAR: S1 and S2 present. No murmurs, rubs, or gallops. PULMONARY: Chest is clear to auscultation, no wheezing or crackles. ABDOMEN: Soft, nontender, nondistended, normoactive bowel sounds. No palpable organomegaly. MUSCULOSKELETAL: No joint swelling or deformity. EXTREMITIES: No cyanosis, clubbing, or pedal edema. NEUROLOGICAL: Gross neurological examination did not reveal any focal deficits. in hard cervical collar. SKIN: No rashes. Assessment and Plan Cervical stenosis, status post C2-T2 decompression and fusion Hypertension on home dose of losartan 100 mg daily which will be cut down to avoid any postoperative hypotension; BP is currently 110s systolic. Will increase as needed. Hyperlipidemia continues on statin therapy COPD Degenerative disc disease Alcohol use, drinks 1/5 of whiskey daily continue on ativan ciwa protocol Ongoing nicotine dependence Marijuana use Morbid obesity, BMI 31 GI prophylaxis DVT prophylaxis; subcu heparin Full Code Plan Continue pain management per orthopedics Remain on bowel regiment Continue to encourage IS 10 x an hour while awake Continue ativan ciwa protocol Repeat CBC The impression and plan of care has been dictated by Irma Hu, Nurse Practitioner as directed. Dr. Cassius MD I have performed a history and physical examination and medical decision making of this patient, discussed the same with the dictator, and agree with the dictators assessment and plan as written, documented as a scribe. Based on total visit time, I have performed more than 50% of this visit. Objective - Vital Signs Vital signs: Vital Signs Temp 98.2 F 07/27/23 13:02 Pulse 72 07/27/23 16:15 Resp 19 07/27/23 13:02 BP 114/71 07/27/23 13:02 Pulse Ox 96 07/27/23 13:02 FiO2 Intake & Output 07/26/23 07/27/23 07/27/23 18:59 06:59 18:59 Output Total 185 1090 80 Balance -185 -1090 -80 Output: Drainage 185 90 80 Right Back 185 90 80 Urine 1000 Other: Voiding Method Toilet - Labs CBC & Chem 7: 07/27/23 07:03 07/27/23 07:03 Labs: Abnormal Lab Results - Last 24 Hours (Table) 07/27/23 07/27/23 Range/Units 07:03 07:03 WBC 14.1 H (3.8-10.6) k/uL RBC 4.13 L (4.30-5.90) m/uL Hgb 12.9 L (13.0-17.5) gm/dL BUN 22 H (9-20) mg/dL Glucose 123 H (74-99) mg/dL Assessment and Plan Time with Patient: Less than 30
[2023-07-28] MEDS: FAMOTIDINE 20 MG TAB PO SCH (07:47)
[2023-07-28] MEDS: LOSARTAN 50 MG TAB PO SCH (07:48)
[2023-07-28 09:32] LABS: HCT 36.5 % (39.6-50.0); MCH 32.3 pg (27.0-32.0); MCHC 32.9 g/dL (32.0-37.0); MCV 98.1 FL (80.0-97.0); Mean Platelet Volume 10.6 FL (9.5-12.2); NRBC Per 100 WBC 0 X 10*3/uL (0.00-0.01); Platelet Count 156 X 10*3/uL (140-440); RBC 3.72 X 10*6/uL (4.40-5.60); RDW 12.6 % (11.5-14.5); WBC 11.46 X 10*3/uL (4.50-10.00)
[2023-07-28 09:33] LABS: Basophils # (A) 0.05 X 10*3/uL (0.00-0.10); Basophils % (A) 0.4 %; Eosinophils % (A) 1.7 %; Lymphocytes # (A) 1.71 X 10*3/uL (0.90-5.00); Lymphocytes % (A) 14.9 %; Monocytes # (A) 0.63 X 10*3/uL (0.20-1.00); Monocytes % (A) 5.5 %; Neutrophils # (A) 8.83 X 10*3/uL (1.80-7.70); Neutrophils % (A) 77.2 %
--- NOTE | 2023-07-28 09:51 | P.PN ---
Subjective Progress Note Date: 07/28/23 Principal diagnosis: 1. C2-T1 stenosis 2. Bilateral upper extremity paresthesias 3. Cervical foraminal stenosis Patient seen and examined this morning. Patient resting in bed. Patient states he has increased pain in the posterior cervical spine that radiates across his bilateral shoulders and into the left upper extremity. Medications have been adjusted. Encouraged patient to place multiple ice paks across and behind his shoulders. Surgical incision to the posterior cervical spine, edges are well-approximated with sutures intact Hemovac drain has been removed and new surgical dressing applied. Continue to encourage patient to be up in chair for all meals and use of incentive spirometer 10 times per hour while awake. No acute concerns at this time. Objective - Vital Signs Vital signs: Vital Signs Temp 97.3 F L 07/28/23 07:06 Pulse 85 07/28/23 07:06 Resp 18 07/28/23 07:06 BP 113/70 07/28/23 07:06 Pulse Ox 93 L 07/28/23 07:06 FiO2 Intake & Output 07/27/23 07/28/23 07/28/23 18:59 06:59 18:59 Output Total 80 70 Balance -80 -70 Output: Drainage 80 70 Right Back 80 70 Other: # Voids 4 # Bowel Movements 2 - Exam Physical Examination General: The patient is awake and alert, in no acute distress Skin: Skin is warm and dry with no obvious rashes or lesions. Surgical incision to the posterior cervical spine, edges are well-approximated with sutures intact. Hemovac drain has been removed and new surgical dressing applied. Eye: Pupils are equal, round and reactive to light, extra-ocular movements are intact; there is normal conjunctiva bilaterally. Neck: The neck is supple, there is mild tenderness due to surgical incision and limited range of motion due to pain and stiffness from surgical procedure. [place] hard collar is intact. Cardiovascular: There is a regular rate and rhythm. No murmur, rub or gallop is appreciated. Respiratory: Lungs are clear to auscultation, respirations are non-labored, breath sounds are equal. Gastrointestinal: Soft, non-distended, non-tender abdomen. Back: There is no tenderness to palpation in the midline, paralumbar, parathoracic or buttocks region. There is no obvious deformity . Musculoskeletal: Muscle strength in all major muscle groups of bilateral upper extremities 4/5, bilateral lower extremities 5/5. Neurological: CN 2-12 intact. There are no obvious motor or sensory deficits. Movement and coordination equal and intact. Sensory exam to light touch intact C5-T1 and intact from L2-S1. Reflexes 2/4 in bilateral upper and lower extremities. Negative Hoffmans, babinski, and clonus signs. Psychiatric: Cooperative, appropriate mood & affect, normal judgment. - Labs CBC & Chem 7: 07/28/23 04:09 07/27/23 07:03 Assessment and Plan Assessment: Postop day 3: C2-T2 decompression and fusion 1. C2-T1 stenosis 2. Bilateral upper extremity paresthesias 3. Cervical foraminal stenosis Plan: -Appreciate data consultant and team management. -Activity: Ambulate QID, OOB all meals, up and about, limit lifting bending twisting to less than 5 lbs. Use walker or cane if needed for stability. -Daily PT/OT, increase ambulation strength and balance. -Hard cervical collar on at all times, may remove for showers. -Pain control: Medications have been adjusted. -Meds: reviewed -GI ppx: senna, Miralax -DVT PPX: Heparin -Hygiene: Shower today. Maintain dressing clean and dry. -Encourage IS 10x/hr -Dispo: Anticipate discharge home with homecare in the next 24-48 hours. *I reviewed and discussed this case with my attending Dr. Sparks, whom has reviewed this chart and films and is in agreement with assessment and plan of care as outlined above. I have personally seen and examined the patient, performed the documentation and the assessment and plan as written. Number of minutes spent on the visit: 20m.
[2023-07-28] MEDS: oxyCODONE-APAP 10-325MG 1 EACH TAB PO SCH (12:10)
[2023-07-28] MEDS: CYCLOBENZAPRINE 10 MG TAB PO SCH (15:11)
--- NOTE | 2023-07-28 21:59 | P.PN ---
Subjective Progress Note Date: 07/28/23 This 57-year-old gentleman with past medical history significant for cervical stenosis, hypertension, degenerative disc disease, alcohol abuse-drinks 1/5 of whiskey a daily, marijuana use, ongoing nicotine dependence, COPD, bipolar, anxiety, depression and multiple other medical issues, status post C2-T2 decompression and fusion. Tolerated procedure well. Passing flatus, spontaneously voiding. Ambulating to and from bathroom, tolerated exertion well. Denies lightheadedness dizziness or focal deficits. Denies chest pain, palpitations or shortness of breath. Reports a rough night, due to his pain management, which orthopedic spine addressed with staff. Denies numbness or tingling. Hypertensive, antihypertensives further adjusted with the addition of hydralazine. Continues on CIWA protocol, current CIWA score 4. 07/27/2023 Patient is evaluated in follow up. Assumed care of the patient today from primary doctor. Patient is postoperative day #2 C2-T1 decompression and fusion. He is in a hard cervical collar. Symptoms of cervical radiculopathy have improved per patient no longer having reports of numbness and tingling down the right arm. He is having continued pain 08/27 and states the only thing that helps is the IV dilaudid which wears off quickly. States the oxycodone is no longer working for his chronic pain. Patient has no acute complaints. He is continued on ativan CIWA protocol does not appear to be actively withdrawing at this time. Labs today reveal white blood cell count 14.1, BUN 22, creatinine 0.83. Hemodynamically he is stable. 07/28/2023 Patient is evaluated in follow up; he is postoperative day #3 C2-T1 decompression and fusion. Patient remains in hard cervical collar. He continues to report severe neck pain radiating from the right shoulder down into the left arm and fingers. He does have a pain contract with [facility] managing pain and patient will follow up with them today about increasing his oral pain medication. White blood cell count is improving down to 11.46. Review of Systems Constitutional: Denied any fatigue denied any fever. Cardio vascular: denied any chest pain, palpitations Gastrointestinal: denied any nausea, vomiting, diarrhea Pulmonary: Denied any shortness of breath cough Neurologic denied any new focal deficits All inpatient medications were reviewed and appropriate changes in these med ications as dictated in the interval history and assessment and plan. PHYSICAL EXAMINATION: GENERAL: The patient is alert and oriented x3, not in any acute distress. Well developed, well nourished. HEENT: Pupils are round and equally reacting to light. EOMI. No scleral icterus. No conjunctival pallor. Normocephalic, atraumatic. No pharyngeal erythema. No thyromegaly. CARDIOVASCULAR: S1 and S2 present. No murmurs, rubs, or gallops. PULMONARY: Chest is clear to auscultation, no wheezing or crackles. ABDOMEN: Soft, nontender, nondistended, normoactive bowel sounds. No palpable organomegaly. MUSCULOSKELETAL: No joint swelling or deformity. EXTREMITIES: No cyanosis, clubbing, or pedal edema. NEUROLOGICAL: Gross neurological examination did not reveal any focal deficits. in hard cervical collar. SKIN: No rashes. Assessment and Plan Cervical stenosis, status post C2-T2 decompression and fusion Hypertension on home dose of losartan 100 mg daily which will be cut down to avoid any postoperative hypotension; BP is currently 110s systolic. Will increase as needed. Hyperlipidemia continues on statin therapy COPD Degenerative disc disease Alcohol use, drinks 1/5 of whiskey daily continue on ativan ciwa protocol Ongoing nicotine dependence Marijuana use Morbid obesity, BMI 31 GI prophylaxis DVT prophylaxis; subcu heparin Full Code Plan Continue pain management per orthopedics Remain on bowel regiment Continue to encourage IS 10 x an hour while awake Continue ativan ciwa protocol White blood cell count improving. The impression and plan of care has been dictated by Irma Hu, Nurse Practitioner as directed. Dr. Cassius MD I have performed a history and physical examination and medical decision making of this patient, discussed the same with the dictator, and agree with the dictators assessment and plan as written, documented as a scribe. Based on total visit time, I have performed more than 50% of this visit. Objective - Vital Signs Vital signs: Vital Signs Temp 97.3 F L 07/28/23 18:13 Pulse 96 07/28/23 18:13 Resp 18 07/28/23 18:13 BP 149/82 07/28/23 18:13 Pulse Ox 98 07/28/23 18:13 FiO2 Intake & Output 07/28/23 07/28/23 07/29/23 06:59 18:59 06:59 Output Total 70 Balance -70 Output: Drainage 70 Right Back 70 Other: # Voids 4 # Bowel Movements 2 - Labs CBC & Chem 7: 07/28/23 04:09 07/27/23 07:03 Labs: Abnormal Lab Results - Last 24 Hours (Table) 07/28/23 Range/Units 04:09 WBC 11.46 H (4.50-10.00) X 10*3/uL RBC 3.72 L (4.40-5.60) X 10*6/uL Hgb 12.0 L (13.0-17.0) g/dL Hct 36.5 L (39.6-50.0) % MCV 98.1 H (80.0-97.0) FL MCH 32.3 H (27.0-32.0) pg Neutrophils # 8.83 H (1.80-7.70) X 10*3/uL Assessment and Plan Time with Patient: Less than 30
[2023-07-29 01:54] VITALS: RESP 17
[2023-07-29] MEDS ORDERED: methocarbamoL 750 MG TAB PO PRN (07:13)
--- NOTE | 2023-07-29 07:26 | P.PN ---
Subjective Progress Note Date: 07/29/23 Principal diagnosis: 1. C2-T1 stenosis 2. Bilateral upper extremity paresthesias 3. Cervical foraminal stenosis Patient seen and examined this morning. Patient resting in bed. Patient states he has increased pain in the posterior cervical spine that radiates across his bilateral shoulders and into the left upper extremity. Ice packs have been applied to the left shoulder. Encouraged patient to place multiple ice paks across and behind his shoulders. Surgical incision to the posterior cervical spine, surgical dressing is clean dry and intact. Continue to encourage patient to be up in chair for all meals and use of incentive spirometer 10 times per hour while awake. No acute concerns at this time. Patient is cleared from orthopedic standpoint for discharge home with home care. Objective - Vital Signs Vital signs: Vital Signs Temp 98.5 F 07/29/23 01:53 Pulse 85 07/29/23 01:53 Resp 17 07/29/23 01:53 BP 113/79 07/29/23 01:53 Pulse Ox 93 L 07/29/23 01:53 FiO2 Intake & Output 07/28/23 07/29/23 07/29/23 18:59 06:59 18:59 Other: # Voids 2 # Bowel Movements 2 - Exam Physical Examination General: The patient is awake and alert, in no acute distress Skin: Skin is warm and dry with no obvious rashes or lesions. Surgical incision to the posterior cervical spine, surgical dressing is clean dry and intact. Eye: Pupils are equal, round and reactive to light, extra-ocular movements are intact; there is normal conjunctiva bilaterally. Neck: The neck is supple, there is mild tenderness due to surgical incision and limited range of motion due to pain and stiffness from surgical procedure. [place] hard collar is intact. Cardiovascular: There is a regular rate and rhythm. No murmur, rub or gallop is appreciated. Respiratory: Lungs are clear to auscultation, respirations are non-labored, breath sounds are equal. Gastrointestinal: Soft, non-distended, non-tender abdomen. Back: There is no tenderness to palpation in the midline, paralumbar, parathoracic or buttocks region. There is no obvious deformity . Musculoskeletal: Muscle strength in all major muscle groups of bilateral upper extremities 4/5, bilateral lower extremities 5/5. Neurological: CN 2-12 intact. There are no obvious motor or sensory deficits. Movement and coordination equal and intact. Sensory exam to light touch intact C5-T1 and intact from L2-S1. Reflexes 2/4 in bilateral upper and lower e xtremities. Negative Hoffmans, babinski, and clonus signs. Psychiatric: Cooperative, appropriate mood & affect, normal judgment. - Labs CBC & Chem 7: 07/28/23 04:09 07/27/23 07:03 Labs: Abnormal Lab Results - Last 24 Hours (Table) 07/28/23 Range/Units 04:09 WBC 11.46 H (4.50-10.00) X 10*3/uL RBC 3.72 L (4.40-5.60) X 10*6/uL Hgb 12.0 L (13.0-17.0) g/dL Hct 36.5 L (39.6-50.0) % MCV 98.1 H (80.0-97.0) FL MCH 32.3 H (27.0-32.0) pg Neutrophils # 8.83 H (1.80-7.70) X 10*3/uL Assessment and Plan Assessment: Postop day 4: C2-T2 decompression and fusion 1. C2-T1 stenosis 2. Bilateral upper extremity paresthesias 3. Cervical foraminal stenosis Plan: -Appreciate furniture sales consultant and team management. -Activity: Ambulate QID, OOB all meals, up and about, limit lifting bending twisting to less than 5 lbs. Use walker or cane if needed for stability. -Daily PT/OT, increase ambulation strength and balance. -Hard cervical collar on at all times, may remove for showers. -Pain control: Medications have been adjusted. -Meds: reviewed -GI ppx: senna, Miralax -DVT PPX: Heparin -Hygiene: Shower today. Maintain dressing clean and dry. -Encourage IS 10x/hr -Dispo: Patient is cleared from orthopedic standpoint for discharge home with home care today. *I reviewed and discussed this case with my attending Dr. Sparks, whom has r eviewed this chart and films and is in agreement with assessment and plan of care as outlined above. I have personally seen and examined the patient, performed the documentation and the assessment and plan as written. Number of minutes spent on the visit: 20m.
[2023-07-29 07:32] VITALS: BP 145/80; PULSE 90; TEMP 98.6
--- NOTE | 2023-07-29 07:35 | P.DS ---
Providers Date of admission: 07/25/23 05:43 Expected date of discharge: 07/29/23 Attending physician: Dallin Sparks DO Consults: 07/25/23 10:51 Consult Physician Routine Consulting Provider: Louis Boyer Reason/Comments: medical managment Do you want consulting provider notified?: Yes Primary care physician: Louis Boyer MD Hospital Course: Hospital Course: The patient was evaluated preoperatively and found to have the diagnosis of cervical spondylosis with stenosis. They underwent appropriate preoperative care and were willing to undergo the intended procedure. They underwent a successful C2-T2 decompression fusion, were recovered appropriately and sent to the floor. While on the floor they worked with physical therapy, occupational therapy and nursing to enhance their recovery experience. Their pain was well controlled through their stay and they were started on appropriate medications, DVT ppx modalities, activity and dietary needs. Daily labs were monitored closely, and transfusions were only used when necessary. Medicine as well as other consulting services have made their input and have helped with our team approach and multidisciplinary care. PT milestones have been met and passed and they have made the recommendation of home with home care for this patient and treating providers agree with this care path. The patient will be discharged home with appropriate medications, instructions and follow-up information and in stable condition. Patient Condition at Discharge: Good Plan - Discharge Summary Discharge Rx Participant: Yes New Discharge Prescriptions: New oxyCODONE HCL [OxyIR] 10 mg PO Q4-6H PRN #40 tab PRN Reason: Breakthrough Pain Sennosides/Docusate Sodium [Senna Plus 8.6-50 mg Tablet] 1 each PO DAILY PRN #20 tablet PRN Reason: Constipation cefaDROXiL [Duricef] 500 mg PO Q12HR #10 cap Gabapentin 600 mg PO TID #90 tab oxyCODONE HCL/ACETAMINOPHEN [Percocet 10-325 mg] 1 tab PO Q6HR PRN #42 tab PRN Reason: Pain methocarbamoL [Robaxin-750] 750 mg PO QID PRN #40 tab PRN Reason: Muscle Spasm No Action allopurinoL 100 mg PO DAILY Rosuvastatin [Crestor] 10 mg PO HS Metoprolol Tartrate [Lopressor] 25 mg PO BID Albuterol Inhaler [Ventolin Hfa Inhaler] 2 puff INHALATION QID PRN PRN Reason: Dyspnea oxyCODONE-APAP 7.5-325MG [Percocet 7.5-325 mg] 1 tab PO TID PRN PRN Reason: Pain Sertraline [Zoloft] 150 mg PO QAM Losartan Potassium [Cozaar] 100 mg PO QAM Gabapentin 600 mg PO TID Cyclobenzaprine [Flexeril] 10 mg PO TID PRN #90 tab PRN Reason: Muscle Spasm busPIRone HCL 15 mg PO BID Discharge Medication List allopurinoL 100 mg PO DAILY 11/06/21 [History] Rosuvastatin [Crestor] 10 mg PO HS 12/18/21 [History] Gabapentin 600 mg PO TID 09/01/22 [History] Cyclobenzaprine [Flexeril] 10 mg PO TID PRN #90 tab 10/29/22 [Rx] Albuterol Inhaler [Ventolin Hfa Inhaler] 2 puff INHALATION QID PRN 01/11/23 [History] Metoprolol Tartrate [Lopressor] 25 mg PO BID 01/11/23 [History] oxyCODONE-APAP 7.5-325MG [Percocet 7.5-325 mg] 1 tab PO TID PRN 01/11/23 [History] Losartan Potassium [Cozaar] 100 mg PO QAM 03/20/23 [History] Sertraline [Zoloft] 150 mg PO QAM 03/20/23 [History] busPIRone HCL 15 mg PO BID 03/20/23 [History] Gabapentin 600 mg PO TID #90 tab 07/29/23 [Rx] Sennosides/Docusate Sodium [Senna Plus 8.6-50 mg Tablet] 1 each PO DAILY PRN #20 tablet 07/29/23 [Rx] cefaDROXiL [Duricef] 500 mg PO Q12HR #10 cap 07/29/23 [Rx] methocarbamoL [Robaxin-750] 750 mg PO QID PRN #40 tab 07/29/23 [Rx] oxyCODONE HCL [OxyIR] 10 mg PO Q4-6H PRN #40 tab 07/29/23 [Rx] oxyCODONE HCL/ACETAMINOPHEN [Percocet 10-325 mg] 1 tab PO Q6HR PRN #42 tab 07/29/23 [Rx] Follow up Appointment(s)/Referral(s): [facility], [NON-STAFF] - As Needed Dallin Sparks DO [Doctor of Osteopathic Medicine] - 10 Days Activity/Diet/Wound Care/Special Instructions: Spine Discharge and Recovery Instructions Date of Surgery: 07/25/2023 Diagnosis: Cervical spondylosis with stenosis Procedure: C2-T2 decompression and fusion Medications: See medication list All medication refills should be obtained through your primary care doctor or your clinic spine surgeon. Please discuss prescription refills at your follow up appointment. Do not call the hospital for medication refills. Activity: Encourage ambulation with assist of walker, Up and about 6-8x daily PT/OT daily work on balance, strength and mobility Up in chair with all meals Shower daily Brace: Use brace when up and about, do not wear in bed or shower Dressing: Leave your dressing in place for a total of 3 days post operatively. Then you may remove your dressing and leave open to air. Keep the area clean and if not able to keep area clean, then cover with sterile gauze and tape. Showering: You may shower 3 days after your procedure allowing soap and water to run over incision. Do not scrub. Do not soak. Blot dry. Follow up: Please confirm a follow up appointment with your surgeon 2 weeks post operatively. Please make an appointment to follow up with your PCP in 1-2 weeks after surgery for evaluation `3 phase, 3-week plan POST OP WEEKS 1-3 1. Lifting/carrying/pushing/pulling limited to less than 5 pounds. 2. Do not sit for longer than 15 minutes at one time. Get up and walk around. Prolonged sitting is NOT advised. If you lay down, see if you can tolerate laying down on you front (belly side) 3. Walk for periods of 15 minutes = 1 mile but no longer; do it multiple times times each day. 4. Ice your low back after activity. POST OP WEEKS 3-6 1. Lifting limited to less than 20 pounds. 2. Do not sit for longer than 30 minutes at a time. Frequently change positions. Use a sit-to stand workstation or take frequent breaks from sitting if you have returned to work. 3. Walk for 30 minutes each day. If possible, do these three or more times a day POST OP WEEKS 6+ At your 6-week appointment we will give you a physical therapy referral to focus on a core stabilization and strengthening program. You should also work on leg & buttock strengthening, hamstring & quadriceps stretching, and continue a low impact aerobic activity program such as swimming, walking, or riding a stationary bicycle. During the initial 6 weeks after your surgery, you are at the highest risk of re-injuring your spine. You should generally avoid BLTs (bending, lifting and twisting combination motions) and follow the above guidelines to reduce the chance of reinjury. You can anticipate post op appointments in our office at approximately 3 weeks and 6 weeks after your surgery. INCISION CARE: If your incision is not draining you do NOT need to cover it with a dressing. Keep your incision clean, dry and intact. In most cases, we apply skin glue, jalen or sutures to the incision at the time of surgery. This will be like a crust or have the appearance of a scab and will fall off in time on its own. The stitches or jalen need to be removed at 3 weeks post op appointment. You may begin to shower 3 days after surgery (this allows the glue to barrios well). However, please avoid scrubbing the incision site or peeling off any of the skin glue. This will ensure optimal healing of your incision. Also, during this time avoid soaking the incision area in water - this includes swimming pools, hot tubs or baths. No ointments, lotions or oils on the incision until your surgeon allows. Leave jalen, sutures or glue in place. Neurological dysfunction that comes on suddenly can also be a sign of a stroke. Below some common symptoms of a stroke are listed: B - balance difficulty such as sudden onset walking or leaning to one side - NEW E - eye problem such as sudden double vision or trouble seeing on one side - NEW F - Facial weakness or numbness on one side - NEW A - Arm or leg weakness or numbness on one side - NEW S - Slurred speech or difficulty with word finding - NEW T - Time is BRAIN! Call 911 as soon as you recognize these symptoms Diet: Consume a regular diet rich in vegetables and lean protein such as chicken or fish. You should consume in a ratio of approximately 20% fats|40% carbohydrates|40%protein. Vegetables, sweet potatoes, brown rice or quinoa are examples of good carbohydrates. Chips, white bread, cookies and sweets/sugar are examples of bad carbohydrates. Limit your bad carbs, go wild with good carbs. "Life's Simple 7" Guidelines as per [place] [employer] These will help you reclaim your life after surgery and shooter's helper in your recovery, keeping in mind your restrictions. (1) Get Active. Physical activity can help people lose weight, control high blood pressure and cholesterol, feel emotionally better, and sleep better. (2) Control Cholesterol. Avoid a diet high in saturated fat, trans fat, & cholesterol. Limit whole milk & cream, ice cream, butter, egg yolks, processed meats (like sausage and hot dogs), and fatty meats. Choose healthy foods that are low in saturated fat, trans fat and cholesterol which include: Fruits and vegetables, fiber rich grain products (like whole grain pasta and brown rice), lean meat such as chicken, fish, nuts, seeds, and legumes. (3) Eat Better. Eat small portions. Shop at the grocery with a list and do not stray from it. Tips for a healthy diet include: Limit sodium intake to less than 1500mg daily, avoid prepackaged, processed, and fast foods, choose a diet rich in fruits, vegetables, and whole grain, high fiber foods, and limit saturated & cholesterol in your diet. (4) Manage Blood Pressure. If you have high blood pressure, you should have a cuff at home so that you can check your blood pressure regularly. Be sure you have a good cuff. An arm one is generally better than a wrist one. Bring the cuff to a doctor's appointment to validate that the measurements that your cuff are taking are accurate. Take your blood pressure twice daily when you are sitting down and relaxing. Record the numbers in a log and bring this log with you to your doctors' appointments. (5) Lose Weight if your BMI is above 25. A healthy BMI is between 19-25. To calculate Your BMI, you may use a Standard BMI Calculator on the NIH BMI website: <www.nhlbi.nih.gov/guidelines/obesity/BMI/bmicalc.htm>. Weigh oneself daily. If you are overweight, set a goal to lose weight. A pound a week loss if needed is a good target. (6) Reduce Blood Sugar. Limit foods and liquids with "added sugars." (Added sugars include sucrose, fructose, glucose, maltose, dextrose, high fructose corn syrup, corn syrup, concentrated fruit juice and honey). (7) Stop Smoking. If you smoke, quitting smoking is one of the best things that you can do for your health. Smoking increases your risk of heart attack, stroke, and peripheral vascular disease, which is a build-up of plaque in your arteries. Please discard all the cigarettes and lighters in your house. Have a plan for what you will do when you have the urge to smoke. Direct and second- hand smoke shortens your life as well as the lives of your family, friends and others around you. For your health and the health of those around you, please consider quitting! Proper Bending Body Mechanics: Maintain a wide stance with one foot slightly in front of the other. Keep your back straight. Bend utilizing the strength in your hips and knees. Do not bend at the waist. Maintain the lifted object at your waist-level close to your body. Avoid lifting weight that causes immediately pain or pain anywhere in the body afterwards. Smoking/Nicotine If there was ever one thing that you could do to increase your overall health, decrease your risk of cardiovascular problems by about 39% the second you make the choice, it is to STOP SMOKING. Your body's most instant gratification is the second you stop smoking. We have all heard the studies, read the articles but it is true, smoking is extremely bad for your overall health, and moreover it is detrimental to your bone health. Nicotine, IN ANY FORM, kills bone cells, prevents your body from healing fractures, and significantly prolongs healing after surgery. In spine surgery specifically, it increases your risk of not healing your bones to create a fusion and increases your risk of having a revision surgery due to this up to 60%. I know it is hard. I know it feels impossible. But there are ways. Take control of your life. We are here to help you through it. And when you are ready, ask us and we can direct you to help if you desire. Use the START Plan to Quit Smoking (please visit the Helpguide.org website listed below for more information): S = Set a quit date. Choose a date within the next 2 weeks, so you have enough time to prepare without losing your motivation to quit. If you mainly smoke at work, quit on the weekend, so you have a few days to adjust to the change. T = Tell family, friends, and co-workers that you plan to quit. Let your friends and family in on your plan to quit smoking and tell them you need their support and encouragement to stop. Look for a quit alisha who wants to stop smoking as well. You can help each other get through the rough times. A = Anticipate and plan for the challenges you'll face while quitting. Most people who begin smoking again do so within the first 3 months. You can help yourself make it through by preparing ahead for common challenges, such as nicotine withdrawal and cigarette cravings. R = Remove cigarettes and other tobacco products from your home, car, and work. Throw away all your cigarettes (no emergency pack!), lighters, ashtrays, and matches. Wash your clothes and freshen up anything that smells like smoke. Shampoo your car, clean your drapes and carpet, and steam your furniture. T = Talk to your doctor about getting help to quit. Your doctor can prescribe medication to help with withdrawal and suggest other alternatives. If you can't see a doctor, you can get many products over the counter at your local pharmacy or grocery store, including the nicotine patch, nicotine lozenges, and nicotine gum. Resources for Quitting Smoking: <https://www.[facility].gov/documents/[facility]/Quit_Tobacco_Resources_for_patients_313480_7.pdf> Supplementation: Take recommended dosages of Vitamin D and Calcium to help fortify your bones and help them to heal. See your health maintenance packet for dosages and recommended levels. DVT/VTE prophylaxis: You will be given compression stockings from the hospital. Wear these daily for the first two weeks after surgery. You may take them off at night. You may be prescribed a medication to help thin your blood. Take this as directed. If you are not prescribed this medication, early and frequent ambulation has been shown to be the best prophylaxis to deep vein thrombosis and sequelae related to this event. Discharge Disposition: HOME WITH HOME HEALTH SERVICES
--- NOTE | 2023-07-29 10:10 | P.PN ---
Objective - Vital Signs Vital signs: Vital Signs Temp 98.6 F 07/29/23 07:31 Pulse 90 07/29/23 08:20 Resp 17 07/29/23 08:20 BP 145/80 07/29/23 07:31 Pulse Ox 95 07/29/23 07:31 FiO2 Intake & Output 07/28/23 07/29/23 07/29/23 18:59 06:59 18:59 Other: Voiding Method Toilet # Voids 2 1 # Bowel Movements 2 - Labs CBC & Chem 7: 07/28/23 04:09 07/27/23 07:03 Assessment and Plan Assessment: Cervical stenosis, status post C2-T2 decompression and fusion Hypertension Hyperlipidemia COPD Degenerative disc disease Alcohol use, drinks 1/5 of whiskey daily Ongoing nicotine dependence Marijuana use Morbid obesity, BMI 31 Plan: Continue on current medication resume ,monitoring and symptomatic treatment. Discharge planning in progress for today as per orthopedic surgery. Maintain aggressive pulmonary toileting with incentive spirometer reinforced. Alcohol abstinence, smoking cessation reinforced. Follow-up with PCP in 1 week. The impression and plan of care has been dictated as directed. : I performed a history and examination of this patient, discussed the same with the dictator. I agree with the dictator's note ,documented as a scribe. Any additional findings or plans will be noted.
== END 2023-07-29 13:10 | disposition home health service (06) | DRG 460 ==
LOC: 2ORMAIN 05:43 → 4SSUR 12:16
PROVIDERS: ADMIT Orthopaedic Surgery; ATTEND Orthopaedic Surgery
PROC: 0RG6071 Fusion of Thoracic Vertebral Joint with Autologous Tissue Substitute, Posterior Approach, Posterior Column, Open Approach (ICD-10-PCS; 2023-07-25)
PROC: 0RG4071 Fusion of Cervicothoracic Vertebral Joint with Autologous Tissue Substitute, Posterior Approach, Posterior Column, Open Approach (ICD-10-PCS; 2023-07-25)
PROC: 01N80ZZ Release Thoracic Nerve, Open Approach (ICD-10-PCS; 2023-07-25)
PROC: 01N10ZZ Release Cervical Nerve, Open Approach (ICD-10-PCS; 2023-07-25)
PROC: 0RB30ZZ Excision of Cervical Vertebral Disc, Open Approach (ICD-10-PCS; 2023-07-25)
PROC: 0RB90ZZ Excision of Thoracic Vertebral Disc, Open Approach (ICD-10-PCS; 2023-07-25)
PROC: 4A11X4G Monitoring of Peripheral Nervous Electrical Activity, Intraoperative, External Approach (ICD-10-PCS; 2023-07-25)
PROC: 4A133B1 Monitoring of Arterial Pressure, Peripheral, Percutaneous Approach (ICD-10-PCS; 2023-07-25)
PROC: 0RB50ZZ Excision of Cervicothoracic Vertebral Disc, Open Approach (ICD-10-PCS; 2023-07-25)
PROC: 4A133J1 Monitoring of Arterial Pulse, Peripheral, Percutaneous Approach (ICD-10-PCS; 2023-07-25)
PROC: 03HY32Z Insertion of Monitoring Device into Upper Artery, Percutaneous Approach (ICD-10-PCS; 2023-07-25)
PROC: 0RG2071 Fusion of 2 or more Cervical Vertebral Joints with Autologous Tissue Substitute, Posterior Approach, Posterior Column, Open Approach (ICD-10-PCS; principal; 2023-07-25 07:30)
DX: M48.04 Spinal stenosis, thoracic region (principal); M48.02 Spinal stenosis, cervical region; F31.9 Bipolar disorder, unspecified; F41.9 Anxiety disorder, unspecified; I10 Essential (primary) hypertension; M50.13 Cervical disc disorder with radiculopathy, cervicothoracic region; Z88.8 Allergy status to other drugs, medicaments and biological substances; E66.01 Morbid (severe) obesity due to excess calories; Z71.6 Tobacco abuse counseling; M47.23 Other spondylosis with radiculopathy, cervicothoracic region; Z68.31 Body mass index [BMI] 31.0-31.9, adult; E78.5 Hyperlipidemia, unspecified; F17.210 Nicotine dependence, cigarettes, uncomplicated; M40.292 Other kyphosis, cervical region; J44.9 Chronic obstructive pulmonary disease, unspecified; Z79.899 Other long term (current) drug therapy; Z82.49 Family history of ischemic heart disease and other diseases of the circulatory system
CPT/HCPCS: 72040; 72125; 80053; 85025; 85027; 94640; 94760

== ENCOUNTER → 2023-10-09 | Outpatient (CLI) | payer MEDICARE, OTHER ==
--- NOTE | 2023-10-28 16:12 | CT ---
Site ID synapse default Patient Medardo Galan ID [id number] Age/Gender: 57Y, M Order # N/A Procedure CT ABD. PELVIS WITH CONTRAST Date 10/09/2023 1:41:00 PM EXAMINATION TYPE: CT abdomen pelvis w con CT DLP: 1368 mGycm, Automated exposure control for dose reduction was used. DATE OF EXAM: 10/09/2023 6:19 PM COMPARISON: CT abdomen pelvis 09/01/2022, 05/15/2021. CLINICAL INDICATION: Male, 57 year old with history of diverticulosis, left lower quadrant pain. TECHNIQUE: Standard CT of the abdomen and pelvis following the administration of 100 cc of Isovue 3 00 IV contrast material and oral contrast. Coronal and sagittal reformats were performed. FINDINGS: LOWER CHEST: Minimal posterior dependent subsegmental atelectasis is noted. ABDOMEN LIVER: Diffusely hypoattenuating parenchyma. No focal lesion identified. GALLBLADDER AND BILE DUCTS: Unremarkable. PANCREAS: Unremarkable. SPLEEN: Unremarkable. ADRENAL GLANDS: Unremarkable. KIDNEYS AND URETERS: No evidence of hydronephrosis or renal calculus. The kidneys enhance symmetrical ly. Contrast is demonstrated within both collecting systems on the delayed phase. PELVIS BLADDER: Unremarkable REPRODUCTIVE: Coarse calcifications of the prostate gland are identified. ABDOMEN & PELVIS STOMACH AND BOWEL: Stomach is unremarkable. Periampullary duodenal diverticulum. Distal colonic diver ticulosis with anastomosis at the sigmoid descending colon junction. No surrounding inflammatory escobar ges or wall thickening to suggest acute diverticulitis. The appendix is within normal limits. Enteric contrast reaches the descending colon. No evidence of bowel obstruction. PERITONEUM: No evidence of pneumoperitoneum or free fluid. VASCULATURE: Moderate atherosclerotic calcifications are present throughout the abdominal aorta and i ts branches. No evidence of aortic aneurysm. Suggests a moderate stenosis at the origin of the left c ommon iliac artery secondary to calcified plaque. MUSCULOSKELETAL: No acute osseous abnormalities. Post surgical changes with bilateral pedicular screw s and rods involving L4-S1 with disc fusion cages and laminectomy changes. Mild multilevel degenerati ve disc disease. Mild retrolisthesis of L2 on L3. LYMPH NODES: No gross evidence for lymphadenopathy. SOFT TISSUE/ABDOMINAL WALL: Unremarkable IMPRESSION: 1. No CT evidence for an acute process. 2. Colonic diverticulosis without evidence for acute diverticulitis. 3. Hepatic steatosis.
== END | disposition home or self-care (01) ==
LOC: RADCTMAIN 11:47
PROVIDERS: ATTEND Family Medicine
DX: K57.30 Diverticulosis of large intestine without perforation or abscess without bleeding (principal); K76.0 Fatty (change of) liver, not elsewhere classified
CPT/HCPCS: 74177; 36415; Q9967

== ENCOUNTER 2024-02-05 11:04 | Emergency (ER) | payer MEDICARE, OTHER ==
--- NOTE | 2024-02-05 11:49 | ED ---
General Adult HPI - General Chief complaint: ENT Stated complaint: Sore throat Time Seen by Provider: 02/05/24 11:15 Source: patient, RN notes reviewed Mode of arrival: ambulatory Limitations: no limitations - History of Present Illness Initial comments: This is a 58-year-old male with history of COPD presenting to the emergency department for chief complaint of sore throat, mild cough, and congestion over the past 2 days. Additionally, patient states that he has noticed a white substance in his posterior mouth and states that this appears similar as when he has had thrush in the past. Patient states that he has having pain with swallowing. He denies fevers, chills, body aches, shortness of breath, difficulty breathing, chest pain. - Related Data Home Medications Medication Instructions Recorded Confirmed allopurinoL 100 mg PO DAILY 11/06/21 07/25/23 Rosuvastatin [Crestor] 10 mg PO HS 12/18/21 07/25/23 Gabapentin 600 mg PO TID 09/01/22 07/25/23 Albuterol Inhaler [Ventolin Hfa 2 puff INHALATION QID PRN 01/11/23 07/25/23 Inhaler] Metoprolol Tartrate [Lopressor] 25 mg PO BID 01/11/23 07/25/23 oxyCODONE-APAP 7.5-325MG [Percocet 1 tab PO TID PRN 01/11/23 07/25/23 7.5-325 mg] Losartan Potassium [Cozaar] 100 mg PO QAM 03/20/23 07/25/23 Sertraline [Zoloft] 150 mg PO QAM 03/20/23 07/25/23 busPIRone HCL 15 mg PO BID 03/20/23 07/25/23 Previous Rx's Medication Instructions Recorded Folic Acid 1 mg PO DAILY tab 07/29/23 Gabapentin 600 mg PO TID #90 tab 07/29/23 Multivitamins, Thera [Multivitamin 1 each PO DAILY tab 07/29/23 (formulary)] Nicotine 14Mg/24Hr Patch [Habitrol] 1 patch TRANSDERM DAILY patch 07/29/23 Pantoprazole Sodium [Protonix] 40 mg PO DAILY #30 tab 07/29/23 Sennosides/Docusate Sodium [Senna 1 each PO DAILY PRN #20 tablet 07/29/23 Plus 8.6-50 mg Tablet] cefaDROXiL [Duricef] 500 mg PO Q12HR #10 cap 07/29/23 methocarbamoL [Robaxin-750] 750 mg PO QID PRN #40 tab 07/29/23 oxyCODONE HCL [OxyIR] 10 mg PO Q4-6H PRN #40 tab 07/29/23 oxyCODONE HCL/ACETAMINOPHEN 1 tab PO Q6HR PRN #42 tab 07/29/23 [Percocet 10-325 mg] Nystatin [Nystatin Oral Susp] 400,000 unit PO Q6H #96 ml 02/05/24 Allergies Allergy/AdvReac Type Severity Reaction Status Date / Time clonidine [From Catapres] AdvReac Vomiting Verified 02/05/24 11:08 Review of Systems ROS Statement: Those systems with pertinent positive or pertinent negative responses have been documented in the HPI. ROS Other: All systems not noted in ROS Statement are negative. Past Medical History Past Medical History: Hypertension Additional Past Medical History / Comment(s): Hx ETOH abuse, past withdrawal per pt with shaking/nausea and diarrhea, pancreatitis, diverticulitis, chronic cervical/back pain/DDD and cervical spondylosis, bronchitis. History of Any Multi-Drug Resistant Organisms: C-DIFF Date of last positivie culture/infection: 2005 MDRO Source:: stool Past Surgical History: Back Surgery, Bowel Resection Additional Past Surgical History / Comment(s): bilateral wrist/ elbow back Past Anesthesia/Blood Transfusion Reactions: No Reported Reaction Past Psychological History: Anxiety, Bipolar, Depression Past Alcohol Use History: Daily, Occasional Past Drug Use History: None Reported - Past Family History Father Family Medical History: Congestive Heart Failure (CHF) Additional Family Medical History / Comment(s): "heart problems" Mother Family Medical History: Congestive Heart Failure (CHF) Additional Family Medical History / Comment(s): "heart problems" Brother(s) Additional Family Medical History / Comment(s): "heart problems" General Exam Limitations: no limitations General appearance: alert, in no apparent distress Eye exam: Present: normal appearance, PERRL, EOMI. Absent: scleral icterus, conjunctival injection, periorbital swelling Expanded Throat exam: tonsillar erythema, other (posterior oropharynx pseudomembranous plaque surrounded by erythema). negative: normal inspection Respiratory exam: Present: normal lung sounds bilaterally. Absent: respiratory distress, wheezes, rales, rhonchi, stridor Cardiovascular Exam: Present: regular rate, normal rhythm, normal heart sounds. Absent: systolic murmur, diastolic murmur, rubs, gallop, clicks GI/Abdominal exam: Present: soft, normal bowel sounds. Absent: distended, tenderness, guarding, rebound, rigid Extremities exam: Present: normal inspection, full ROM, normal capillary refill. Absent: tenderness, pedal edema, joint swelling, calf tenderness Skin exam: Present: warm, dry, intact, normal color. Absent: rash Course Vital Signs 02/05/24 02/05/24 11:06 13:11 Temperature 98.0 F 98.8 F Pulse Rate 82 67 Respiratory 16 18 Rate Blood Pressure 172/105 145/91 O2 Sat by Pulse 96 97 Oximetry Medical Decision Making - Medical Decision Making Was pt. sent in by a medical professional or institution (, PA, MANAGER PRIVACY, urgent care, hospital, or detention...) When possible be specific @ -No Did you speak to anyone other than the patient for history (EMS, parent, family, police, friend...)? What history was obtained from this source @ -No Did you review nursing and triage notes (agree or disagree)? Why? @ -I reviewed and agree with nursing and triage notes Were old charts reviewed (outside hosp., previous admission, EMS record, old EKG, old radiological studies, urgent care reports/EKG's, detention records)? Report findings @ -No old charts were reviewed Differential Diagnosis (chest pain, altered mental status, abdominal pain women, abdominal pain men, vaginal bleeding, weakness, fever, dyspnea, syncope, headache, dizziness, GI bleed, back pain, seizure, CVA, palpatations, mental health, musculoskeletal)? @ -COVID 19, RSV, influenza, pneumonia, acute bronchitis, URI, this list is not all inclusive EKG interpreted by me (3pts min.). @ -None X-rays interpreted by me (1pt min.). @ -None done CT interpreted by me (1pt min.). @ -None done U/S interpreted by me (1pt. min.). @ -None done What testing was considered but not performed or refused? (CT, X-rays, U/S, labs)? Why? @ -None What meds were considered but not given or refused? Why? @ -None Did you discuss the management of the patient with other professionals (professionals i.e. , PA, MANAGER PRIVACY, lab, RT, psych nurse, social service coordinator, insurance territory manager, teacher, accounts officer, caser up)? Give summary @ -No Was smoking cessation discussed for >3mins.? @ -No Was critical care preformed (if so, how long)? @ -No Were there social determinants of health that impacted care today? How? (Homelessness, low income, unemployed, alcoholism, drug addiction, transportation, low edu. Level, literacy, decrease access to med. care, snf, rehab)? @ -No Was there de-escalation of care discussed even if they declined (Discuss DNR or withdrawal of care, Hospice)? DNR status @ -No What co-morbidities impacted this encounter? (DM, HTN, Smoking, COPD, CAD, Cancer, CVA, ARF, Chemo, Hep., AIDS, mental health diagnosis, sleep apnea, morbid obesity)? @ -None Was patient admitted / discharged? Hospital course, mention meds given and route, prescriptions, significant lab abnormalities, going to OR and other pertinent info. @ -Discharge. 58-year-old male presenting with sore throat. On evaluation patient noted to have white curd-like pseudomembranous plaques of the posterior oropharynx consistent with thrush. There is erythema surrounding areas of plaques. Vitals are stable. Patient is provided with dose of steroids for sore throat in addition to viscous lidocaine pending swabs. Negative for COVID, flu, RSV, and strep. Patient arrived with outpatient prescription for nystatin and oral rinse instructed to continue Tylenol Motrin as needed for pain. Discussed with Dr. Lainez Undiagnosed new problem with uncertain prognosis? @ -No Drug Therapy requiring intensive monitoring for toxicity (Heparin, Nitro, Insulin, Cardizem)? @ -No Were any procedures done? @ -No Diagnosis/symptom? @ -viral pharyngitis, thrush Acute, or Chronic, or Acute on Chronic? @ -acute Uncomplicated (without systemic symptoms) or Complicated (systemic symptoms)? @ -uncomplicated Side effects of treatment? @ -No Exacerbation, Progression, or Severe Exacerbation? @ -No Poses a threat to life or bodily function? How? (Chest pain, [place], MA, pneumonia, PE, COPD, DKA, ARF, appy, cholecystitis, CVA, Diverticulitis, Homicidal, Suicidal, threat to staff... and all critical care pts) @ -No - Lab Data Lab Results 02/05/24 02/05/24 Range/Units 11:09 11:48 Influenza Type A (PCR) Not Detected (Not Detectd) Influenza Type B (PCR) Not Detected (Not Detectd) RSV (PCR) Not Detected (Not Detectd) SARS-CoV-2 (PCR) Not Detected (Not Detectd) Group A Strep (PCR) NOT DETECTED (Not Detectd) Disposition Clinical Impression: Thrush, oral, Sore throat Disposition: HOME SELF-CARE Condition: Good Instructions (If sedation given, give patient instructions): Oral Candidiasis (ED) Additional Instructions: Please return to the Emergency Department if symptoms worsen or any other concerns. Take prescribed oral nystatin rinse as directed. Continue Tylenol Motrin as needed for pain relief. Follow-up with primary care provider for further evaluation. Prescriptions: Nystatin [Nystatin Oral Susp] 400,000 unit PO Q6H #96 ml Is patient prescribed a controlled substance at d/c from ED?: No Referrals: Louis Boyer MD [Primary Care Provider] - 1-2 days Time of Disposition: 12:59
[2024-02-05] MEDS: ONDANSETRON ODT 4 MG TAB PO STA (12:16)
[2024-02-05] MEDS: methylPREDNISolone SOD SUCCI 125 MG/2 ML VIAL IM ONE (12:16)
[2024-02-05] MEDS: LIDOCAINE VISCOUS 2% 15 ML CUP PO ONE (12:19)
[2024-02-05 13:12] VITALS: BP 145/91; PULSE 67; RESP 18; TEMP 98.8
== END 2024-02-05 13:12 | disposition home or self-care (01) ==
LOC: EC 11:04
DX: J02.9 Acute pharyngitis, unspecified (principal); B37.0 Candidal stomatitis; Z88.8 Allergy status to other drugs, medicaments and biological substances
CPT/HCPCS: 99283; 87651; 87636; 96372; J2919